=== PATIENT | female | born 1940 | race Caucasian/White ===

== ENCOUNTER 2021-06-05 15:11 | Emergency (ER) | payer MEDICARE, SELFPAY ==
[2021-06-05 15:19] VITALS: BP 205/100; PULSE 100; RESP 16; TEMP 36.6; O2SAT 97; BMI 15.5
--- NOTE | 2021-06-05 16:17 | ED.VIS.LOWEX ---
HPI History of Present Illness Chief Complaint: Lower Extremity Injury Narrative Narrative: 81-year-old female presenting after mechanical fall with left hip pain and extending into the left thigh. She states he is unable to ambulate after this. She states she thinks she tripped over her slipper. She denies head injury or LOC. Patient states she has a history of leg fracture on the left previously and did not have it surgically fixed. This was years ago. Patient states that she used to have an [place] gentleman make her a shoe that would make up for the leg length discrepancy so that she can walk. Patient states she was otherwise well prior to this. Denies urinary complaints. No fever or chills. No weakness. [facility] Medical History (Updated 06/05/21 @ 17:[address] Tena Chery DO) COPD (chronic obstructive pulmonary disease) Gluten intolerance Hypertension Smoker Stroke/cerebrovascular accident Home Medications hydrocodone-acetaminophen 1 tab PO Q6H PRN 06/05/21 [History Last Taken Unknown] levothyroxine 75 mcg PO DAILY 06/05/21 [History Last Taken Unknown] lisinopril 20 mg PO DAILY 06/05/21 [History Last Taken Unknown] lorazepam 2 mg PO TID PRN 06/05/21 [History Last Taken Unknown] metoprolol succinate 50 mg PO DAILY 06/05/21 [History Last Taken Unknown] montelukast [Singulair] 10 mg PO QPM 06/05/21 [History Last Taken Unknown] oxybutynin chloride 5 mg PO DAILY 06/05/21 [History Last Taken Unknown] Allergy/AdvReac Type Severity Reaction Status Date / Time meperidine [From Demerol] Allergy Rash Verified 06/05/21 15:27 Family History (Updated 06/05/21 @ 17:[address] Tena Chery DO) Other CVA (cerebral vascular accident) Hypertension Surgical History (Updated 06/05/21 @ 17:[address] Tena Chery DO) Hx of breast implants, bilateral Social History (Updated 06/05/21 @ 17:[address] Tena Chery DO) Smoking Status: Current some day smoker tobacco type: e-cigarettes how long ago did patient quit smoking: Started e-cigarette use approximately 1 week ago alcohol intake: former details: Patient drank 12 beers a day at her heaviest but quit drinking 1 yr ago substance use type: does not use ROS ROS ED Constitutional Constitutional ED: Denies chills or fever(s) Eyes Eyes: Denies blurry vision or diplopia ENT ENT ED: Denies rhinorrhea or sore throat Cardiovascular Cardiovascular: Denies chest pain or palpitations Respiratory/Chest Respiratory/Chest: Denies cough or dyspnea Gastrointestinal Gastrointestinal: Denies abdominal pain, nausea or vomiting Genitourinary Genitourinary ED: Denies dysuria or hematuria Musculoskeletal Musculoskeletal: Reports other Details: Left hip pain Integumentary Denies Abrasions or rash Neurologic Neurologic: Denies headache(s) or paresthesias EXAM Physical Exam Const Vital Signs: 06/05/21 15:19 06/05/21 18:57 06/05/21 19:16 Temperature 97.8 F Temperature Source Temporal Pulse Rate 100 78 Respiratory Rate 16 15 Blood Pressure 205/100 H 171/84 H Blood Pressure Mean 135 113 Pulse Ox 97 Oxygen Delivery Method Room Air 06/05/21 20:00 06/05/21 21:14 Temperature Temperature Source Pulse Rate 78 Respiratory Rate 16 Blood Pressure 149/104 H 155/78 H Blood Pressure Mean 119 103 Pulse Ox 98 Oxygen Delivery Method Positive cachectic General Appearance ED: cachectic and NAD Nutritional Appearance: cachectic HEENT normocephalic and atraumatic Chest Wall inspection of chest normal and palpation of chest normal Resp normal respiratory effort and clear to auscultation bilaterally Cardio regular rate and regular rhythm Back/Spine Thoracic Spine / Upper Back: Negative for thoracic spinal tenderness Lumbar Spine / Lower Back: Negative for lumbar spinal tenderness Extremity Extremity Narrative: Left leg is about 4 inches shorter than the right leg. There is pain to palpation at the left greater trochanter and left proximal thigh laterally. Neuro oriented x3 and CN's II-XII intact bilaterally Sensorium / Orientation: alert MDM MDM MDM Narrative Medical decision making narrative: 81-year-old female presenting with left hip pain. On my initial examination I noticed that she has a leg length discrepancy on the left which is about 4 inches shorter than the 1 on the right. Her daughter states this is not new and that she has been like this for years since her last fracture. She never had this repaired and reports specialist remains that she can ambulate well. She does not have this anymore. Patient reports that she tripped over her slipper on the way into the kitchen and did not hit her head or have LOC. CBC shows a slight leukocytosis at 11.9. Hemoglobin is 11.7 without any comparison labs. Platelet count normal at 329. Renal function electrolytes are normal. Urinalysis is negative for infection. Chest x-ray on my interpretation shows no acute cardiopulmonary process the radiologist does agree. On my interpretation of the left hip and femur x-rays there is an acute, impacted, angulated intertrochanteric left hip fracture. Patient given morphine for pain. Her blood pressure was noted to be elevated on arrival at 205/100 however her morphine her blood pressure is now 155/78. Patient requested to go to [facility]. I discussed this with the transfer line and ultimately was accepted by Dr. Castillo. She will be transported to the medical floor. Impression: 1. Mechanical fall 2. Intertrochanteric left hip fracture 3. Mechanical fall Lab Data Attestation: I reviewed the patient's lab results. Labs: Laboratory Results - last 24 hr 06/05/21 06/05/21 06/05/21 16:25 16:25 18:20 WBC 11.9 H RBC 3.78 L Hgb 11.7 L Hct 34.7 L MCV 91.8 MCH 31.0 MCHC 33.7 RDW Std Deviation 57.3 H RDW Coeff of María 17.0 H Plt Count 329 MPV 9.5 Immature Gran % (Auto) 0.800 Neut % (Auto) 84.0 H Lymph % (Auto) 7.8 L [place] % (Auto) 6.3 Eos % (Auto) 0.5 Baso % (Auto) 0.6 Absolute Neuts (auto) 10.0 H Absolute Lymphs (auto) 0.93 Nucleated RBC % 0 Sodium 131 L Potassium 3.7 Chloride 98 Carbon Dioxide 28.0 Anion Gap 5 BUN 20 H Creatinine 0.81 Estim Creat Clear Calc 34.89 Est GFR (MDRD) Af Amer 87 Est GFR (MDRD) Non-Af 72 BUN/Creatinine Ratio 24.7 H Glucose 95 Calcium 8.8 Urine Color Yellow Urine Clarity Clear Urine pH 7.0 Ur Specific [place] 1.010 Urine Protein Negative Urine Glucose (UA) Normal Urine Ketones Negative Urine Occult Blood Negative Urine Nitrite Negative Urine Bilirubin Negative Urine Urobilinogen Normal Ur Leukocyte Esterase Negative Urine RBC 0 SEEN Urine WBC 0 SEEN Ur Squamous Epith Cells 0-5 SEEN Urine Bacteria 0 SEEN Urine Mucus 0 SEEN Radiography Diagnostic Testing: Clinical Impression(s) from Imaging Studies Chest X-Ray 06/05/21 16:45 IMPRESSION: Hyperexpanded lungs with chronic interstitial changes, no superimposed acute pulmonary process Electronically Signed: Waldo Hernandez MD at 17:11 EST Reading Location ID and State: [facility] / [place] , Service support , Femur X-Ray 06/05/21 16:45 IMPRESSION: Acute, comminuted, multi fragmented, impacted angulated intertrochanteric fracture of the left femur with soft tissue swelling Left hip dislocation or subluxation No demonstrated distal femur or pelvic fracture Electronically Signed: Waldo Hernandez MD at 17:14 EST Reading Location ID and State: [facility] / [place] , Service support , Pelvis X-Ray 06/05/21 16:45 IMPRESSION: Acute, comminuted impacted angulated intertrochanteric fracture of the left femur with soft tissue swelling Osteopenia No demonstrated fracture 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 Electronically Signed: Waldo Hernandez MD at 17:12 EST Reading Location ID and State: [facility] / [place] , Service support , Discharge Plan Triage Chief Complaint: Lower Extremity Injury ED Provider: Dillon Diamond Dx/Rx/DC Orders Prescriptions: No Action hydrocodone-acetaminophen 5-325 mg Tablet 1 tab PO Q6H PRN (Reason: Back Pain) RF: 0 levothyroxine 75 mcg Tablet 75 mcg PO DAILY RF: 0 lorazepam 2 mg Tablet 2 mg PO TID PRN (Reason: Anxiety) RF: 0 metoprolol succinate 50 mg Tablet Extended Release 24 Hr 50 mg PO DAILY RF: 0 lisinopril 20 mg Tablet 20 mg PO DAILY RF: 0 montelukast [Singulair] 10 mg Tablet 10 mg PO QPM RF: 0 oxybutynin chloride 5 mg Tablet 5 mg PO DAILY RF: 0 Primary Care Provider: Duncan Boateng Referrals: Duncan Boateng MD [Primary Care Provider] - Disposition Discharge Date/Time: 06/05/21 21:21
[2021-06-05] MEDS: Morphine 4 MG/ML Syringe IV ×2 (16:24→17:38)
[2021-06-05] MEDS: Ondansetron 4 MG/2 ML Vial IV (16:24)
[2021-06-05 16:37] LABS: Absolute Lymphocyte Count 0.93 X10^3/uL (0.83-4.51); Basophil# 0.07 X10^3/uL; Basophil% 0.6 % (0-1); Eosinophil# 0.06 X10^3/uL; Eosinophils% 0.5 % (0-5); Hematocrit 34.7 % (37-47); Hemoglobin 11.7 g/dL (12.0-15.0); Lymphocyte # 0.93 X10^3/ul (0.83-4.51); Lymphocyte % 7.8 % (19-41); Mean Corp Hgb Conc 33.7 g/dL (32-36); Mean Corpuscular Volume 91.8 fL (81-99); Mean Platelet Vol. 9.5 fl (6.2-12.0); Monocyte# 0.75 X10^3/uL; Monocyte% 6.3 % (0-10); NRBC Flagged by Analyzer 0 % (0-5); Neutrophil # 10.03 X10^3/uL (2.7-7.7); Platelet Count 329 K/mm3 (150-450); RBC Distribution Width SD 57.3 fl (35.1-43.9); Red Blood Count 3.78 M/mm3 (4.2-5.4); White Blood Count 11.9 K/mm3 (4.4-11.0)
[2021-06-05 16:45] LABS: Anion Gap 5 (5-15); BUN 20 mg/dL (7-18); BUN/Creat Ratio 24.7 RATIO (10-20); Calcium,Total 8.8 mg/dL (8.5-10.1); Chloride 98 mmol/L (98-107); Creatinine, Serum 0.81 mg/dL (0.55-1.02); EST Glomerular Filtration Rate 72 mL/min (>60); Est Glom Filt Rate - Afr Amer 87 mL/min (>60); Estimated Creatinine Clearance 34.89 ml/min; Glucose 95 mg/dL (74-106); Potassium 3.7 mmol/L (3.5-5.1); Sodium Level 131 mmol/L (136-145)
--- NOTE | 2021-06-05 16:45 | RAD_ITS ---
STUDY: X-RAY CHEST REASON FOR EXAM: Female, 81 years old. Preop for hip surgery TECHNIQUE: Single AP portable view of the chest. COMPARISON: None. FINDINGS: Peripheral calcifications noted within bilateral breast implants. Lungs are hyperexpanded with chronic interstitial changes, no superimposed acute pulmonary process. There is no demonstrated pleural abnormality. Normal size heart. Normal mediastinum and william. Normal visualized pulmonary arteries. There is atherosclerotic calcification of the aortic arch with tortuosity. There are diffuse degenerative changes of the visualized thoracic spine. There is degenerative osteoarthritis of the bilateral shoulders. There is no demonstrated abnormality of the visualized soft tissue structures of the upper abdomen. RAD/Chest 1 View (Portable) IMPRESSION: Hyperexpanded lungs with chronic interstitial changes, no superimposed acute pulmonary process Electronically Signed: Waldo Hernandez MD at 17:11 EST ,
--- NOTE | 2021-06-05 16:45 | RAD_ITS ---
STUDY: X-RAY - PELVIS REASON FOR EXAM: Female, 81 years old. Acute pain after a fall TECHNIQUE: One view of the pelvis was obtained. COMPARISON: None. FINDINGS: There is a non-specific bowel gas pattern. Normal visualized soft tissue structures. There is diffuse demineralization of the osseous structures. There is narrowing with cortical sclerosis and osteophyte formation of the sacroiliac joint consistent with degenerative osteoarthritic changes. Normal visualized bilateral superior and inferior pubic rami. Normal pubic symphysis. Normal ischial tuberosities. Normal visualized right femoral head. Normal right acetabulum. There is mild articular joint space narrowing of the right hip. There is an acute, impacted, intertrochanteric fracture of the left femur with varus simulation. No left hip dislocation or subluxation is noted. No clearly demonstrated pelvic fracture. 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
--- NOTE | 2021-06-05 16:45 | RAD_ITS ---
STUDY: X-RAY - LEFT FEMUR REASON FOR STUDY: Female, 81 years old. Pain after fall TECHNIQUE: 4 view(s) of the femur. COMPARISON: None. FINDINGS: Bones are demineralized. There is an acute, impacted, multi fragmented, angulated intertrochanteric fracture of the left femur. There is nursing relation of the fracture site. There is arthritic narrowing of the left hip joint without dislocation or subluxation. No demonstrated acetabular or pelvic fracture. Age consistent SI joint arthrosis. No demonstrated fracture in the distal femur. Diffuse atherosclerotic calcifications are noted. RAD/Femur Min 2 Views IMPRESSION: Acute, comminuted, multi fragmented, impacted angulated intertrochanteric fracture of the left femur with soft tissue swelling Left hip dislocation or subluxation No demonstrated distal femur or pelvic fracture Electronically Signed: Waldo Hernandez MD at 17:14 EST ,
--- NOTE | 2021-06-05 16:55 | PCM.HP.STD ---
[facility] - [facility] General Date of Service: 06/05/21 Chief Complaint: Status post mechanical fall with left hip pain [facility] Abrahan COLE, is a 81 F who presented to the emergency department was [facility] on 06/05/2021 complaining of left hip pain after suffering a mechanical fall. The patient states she tripped over her slipper and landed on her left hip. She denied any other injuries or loss of consciousness. She reported that she was immediately in pain and I am unable to ambulate and she therefore called EMS. Upon EMS arrival she was in a seated position. The patient is unclear of all of her home medications however she does admit that she takes Plavix for remote strokes that she has had. We are trying to obtain a list of her current medications but this has not been completed yet. She denies any cardiac disease and has no current chest pain. She states she has a chronic left leg shortening for which she wore a shoe to compensate for leg length discrepancy. She has a remote history of tobacco and alcohol use but no significant current usage. She is living with her son and states that since her she is lost a considerable amount of weight however it appears that it stabilized at 80 pounds. Her only current complaint is left hip pain. In the emergency department her vital signs were normal other than markedly elevated blood pressure at 205/100 however she was having considerable pain. She does not take antihypertensives at baseline. A CBC was performed and showed a mild leukocytosis with a white count of 11.9, a hemoglobin of 11.7 and normal platelets. BMP was obtained and found a sodium of 131, mildly elevated BUN at 20 but a normal serum creatinine is 0.81 and no other abnormalities were identified. A chest x-ray was performed and shows hyperinflation with flattened diaphragms indicating probable COPD and bilateral breast implants which appear stable but no other abnormalities were identified. No EKG has been done at this time but will be ordered for preop clearance at admission. Films of her hip showed a comminuted acute multifragmented impacted angulated intertrochanteric fracture of the left femur with soft tissue swelling a left hip dislocation/subluxation with no pelvic or distal femoral fracture. In the emergency department she was given medication for pain and the case was discussed with Dr. Marin from orthopedic surgery. [facility] Medical History (Updated 06/05/21 @ 17:[address] Tena Chery DO) COPD (chronic obstructive pulmonary disease) Gluten intolerance Hypertension Smoker Stroke/cerebrovascular accident Home Medications hydrocodone-acetaminophen 1 tab PO Q6H PRN 06/05/21 [History Last Taken Unknown] levothyroxine 75 mcg PO DAILY 06/05/21 [History Last Taken Unknown] lorazepam 2 mg PO TID PRN 06/05/21 [History Last Taken Unknown] Allergy/AdvReac Type Severity Reaction Status Date / Time meperidine [From Demerol] Allergy Rash Verified 06/05/21 15:27 Family History (Updated 06/05/21 @ 17:[address] Tena Chery DO) Other CVA (cerebral vascular accident) Hypertension Surgical History (Updated 06/05/21 @ 17:[address] Tena Chery DO) Hx of breast implants, bilateral Social History (Updated 06/05/21 @ 17:[address] Tena Chery DO) Smoking Status: Current some day smoker tobacco type: e-cigarettes how long ago did patient quit smoking: Started e-cigarette use approximately 1 week ago alcohol intake: former details: Patient drank 12 beers a day at her heaviest but quit drinking 1 yr ago substance use type: does not use ROS Constitutional Constitutional: Reports change in weight; Denies anorexia, chills, fatigue, fever(s), malaise, night sweats, weakness or other Eyes Eyes: Denies blurry vision, change in eye color, change in vision, discharge from eye(s), double vision, erythema, eye pain, loss of vision or other ENT HEENT: Denies abnormal hearing, dysphagia, ear pain, epistaxis, headache(s), hearing loss, nasal congestion, nasal discharge, post nasal drip, sinus pressure, sore throat or other Cardiovascular Cardiovascular: Denies chest pain, claudication, dyspnea on exertion, edema, lightheadedness, orthopnea, palpitations, paroxysmal nocturnal dyspnea, rapid heart rate, syncope or other Respiratory/Chest Respiratory/Chest: Denies cough, dyspnea, excessive phlegm production, hemoptysis, productive cough, shortness of breath at rest, shortness of breath with exertion, wheezing or other Gastrointestinal Gastrointestinal: Denies abdominal pain, coffee ground emesis, constipation, diarrhea, dyspepsia, hematemesis, hematochezia, loose stools, melena, nausea, vomiting or other Genitourinary Genitourinary: Denies burning urination, difficulty urinating, dysuria, hematuria, nocturia, urinary frequency, urinary hesitancy, urinary incontinence, urinary urgency or other Musculoskeletal Musculoskeletal: Reports joint pain and joint swelling; Denies arthralgias, back pain, joint stiffness, myalgias, neck pain or other Neurologic Neurologic: Denies abnormal gait, abnormal speech, confusion, disequilibrium, dizziness, focal weakness, headache(s), numbness, paresthesias, seizure-like activity, seizures, syncope, tingling, tremor(s) or other Psychiatric Psychiatric: Denies anxiety, depression, homicidal ideation, suicidal ideation or other Endocrine Endocrinology: Denies change in body appearance, cold intolerance, excessive sweating, heat intolerance, polydipsia, polyuria or other Hematologic/Lymphatic Hematologic/Lymphatic: Denies anemia, easy bleeding, easy bruising, lymphadenopathy or other Allergic/Immunologic Allergic/Immunologic: Denies rhinitis, hives, eczemia, asthma or other Vital Signs Vital Signs Vital Signs: 06/05/21 15:19 Temperature 97.8 F Temperature Source Temporal Pulse Rate 100 Respiratory Rate 16 Blood Pressure 205/100 H Blood Pressure Mean 135 Pulse Ox 97 Oxygen Delivery Method Room Air Weight Weight: 39.9 kg Body Mass Index (BMI) 15.5 Physical Exam Const alert, oriented x3 and no apparent distress Constitutional Narrative: Elderly cachectic white female sitting up in bed, daughter at bedside, appears comfortable at this time, nontoxic, very interactive however appears to be somewhat forgetful at times General Appearance: cooperative HEENT normocephalic, head/scalp atraumatic and moist oral mucous membranes; Negative for hearing grossly normal bilaterally HEENT Narrative: Temporal wasting, upper dentures in place, multiple teeth missing from lower palate, Mallampati 1, no thrush, mildly [place] Eyes PERRL, EOMs intact bilaterally and conjunctivae normal Eyes Narrative: No scleral icterus Neck no lymphadenopathy, supple, no JVD and no carotid bruits Neck Narrative: Trachea midline without thyroid enlargement Resp normal respiratory effort, no retractions, no use of accessory muscles and clear to auscultation bilaterally Resp Narrative: Diffusely diminished without adventitious sounds Auscultation: Negative for crackles, rales, rhonchi or wheezes Cardio regular rate, regular rhythm, S1 normal heart sound, S2 normal heart sound, no murmurs, no rub, no gallops, no clicks and no JVD GI normal to inspection, nondistended, normoactive bowel sounds, soft to palpation, non-tender and non-distended; Negative for hepatosplenomegaly GI Narrative: Very flat stomach Extremity Extremity Narrative: Markedly decreased lean muscle mass, left lower extremity is shortened and externally rotated Peripheral Pulses: Yes pulses 2+ throughout Skin no rashes or lesions noted, no wounds, skin turgor normal, no jaundice, no petechiae and no mottling Neuro oriented x3, CN's II-XII intact bilaterally and no focal motor deficits Neuro Narrative: Daily anxious and forgetful at time Sensorium / Orientation: awake and alert Speech: speech normal Psych affect normal Psych Narrative: Very pleasant and talkative Mood & Affect: anxious Results Lab / Micro Data Attestation: I reviewed the patient's lab results. Result Diagrams: 06/05/21 16:25 06/05/21 16:25 Labs: Laboratory Results - last 24 hr 06/05/21 16:25: WBC 11.9 H, RBC 3.78 L, Hgb 11.7 L, Hct 34.7 L, MCV 91.8, MCH 31.0, MCHC 33.7, RDW Std Deviation 57.3 H, RDW Coeff of María 17.0 H, Plt Count 329, MPV 9.5, Immature Gran % (Auto) 0.800, Neut % (Auto) 84.0 H, Lymph % (Auto) 7.8 L, [place] % (Auto) 6.3, Eos % (Auto) 0.5, Baso % (Auto) 0.6, Absolute Neuts (auto) 10.0 H, Absolute Lymphs (auto) 0.93, Nucleated RBC % 0 06/05/21 16:25: Sodium 131 L, Potassium 3.7, Chloride 98, Carbon Dioxide 28.0, Anion Gap 5, BUN 20 H, Creatinine 0.81, Estim Creat Clear Calc 34.89, Est GFR (MDRD) Af Amer 87, Est GFR (MDRD) Non-Af 72, BUN/Creatinine Ratio 24.7 H, Glucose 95, Calcium 8.8 Assessment & Plan Assessment/Plan (1) Fracture, intertrochanteric, left femur: (2) Hip dislocation, left: (3) Severe malnutrition: (4) Leukocytosis: (5) Normocytic anemia: (6) Hyponatremia: PLAN: Left intertrochanteric fracture/dislocation -Awaiting input from orthopedic surgery-Dr. Turner -Patient is on Plavix and last dose was yesterday -If Ortho intends on doing surgery tomorrow will make patient n.p.o. after midnight -Pain medication for pain control -Bowel regimen -PT/OT consultation for after surgery -We will leave DVT prophylaxis to orthopedics -EKG ordered for preop clearance -Discussed with patient and daughter that she was high risk for requiring fdc/rehab placement at discharge and they are accepting of this probable need Leukocytosis -Suspect reactive -We will continue to monitor -CBC in a.m. Normocytic anemia -Baseline unknown -Suspect this is chronic however -Repeat CBC in a.m. Hyponatremia -Sodium is 131 -Home medication is unclear at this time -We will review medications when we clarify -Repeat BMP tomorrow -Unclear if this is chronic or acute -No signs or symptoms of acute hyponatremia however Severe malnutrition -BMI is 15.6 -Patient states p.o. intake has decreased since her -She has had weight loss in the last year of approximately 35 pounds -Supplements ordered -Dietitian consulted History of stroke -We will hold aspirin and Plavix depending on orthopedic surgery input -Continue to modify risk factors Hypertension -Continue home medication once clarified -As needed hydralazine for systolic pressure greater than 160 Hypothyroidism -Check TSH especially with weight loss -Continue home levothyroxine COPD -As needed aerosols -Patient is currently on room air with stable saturations DVT prophylaxis -SCDs for now -We will leave to orthopedic surgery after surgery has been completed CODE STATUS -DNR CCA no intubation or CPR is clarified with the patient on admission, daughter at bedside for discussion Charges/Coding Visit Charges Inpatient E&M: 77252 Init Hosp L3
[2021-06-05 18:20] LABS: Bacteria 0 SEEN /hpf (None Seen); Mucous, Urine 0 SEEN /hpf (<or=2+); Red Blood Cells-Urine 0 SEEN /hpf (0-5); White Blood Cells 0 SEEN /hpf (0-5)
[2021-06-05 18:32] LABS: Color, Urine Yellow (Yellow); Glucose, Dipstick Normal (Normal); Ketone-Dipstick Negative (Negative); Leukocyte Esterase-Dipstick Negative /ul (Negative); Nitrite-Dipstick Negative (Negative); Occult Blood-Urine Negative /ul (Negative); Protein-Dipstick Negative (Negative); Urine Bilirubin Dipstick Negative (Negative); Urine Clarity Clear (Clear); Urine Urobilinogen Normal (Normal)
[2021-06-05 18:48] LABS: Squamous Epithelial Cells - UA 0-5 SEEN /hpf (5-10)
[2021-06-05 18:57] VITALS: BP 171/84
[2021-06-05 19:16] VITALS: PULSE 78; RESP 15
--- NOTE | 2021-06-05 19:17 | ED.RN ---
Discussed options for urinary management with patient and daughter. After weighing risks and benefits with them, they took note of recent UTI and chose to try purewick. They are agreeable to a glynn catheter for management, if the purewick does not work for her.
[2021-06-05 20:00] VITALS: BP 149/104; PULSE 78; RESP 16; O2SAT 98
[2021-06-05 21:14] VITALS: BP 155/78
== END 2021-06-05 21:21 | disposition home or self-care (01) ==
PROVIDERS: Emergency Provider Student in an Organized Health Care Education/Training Program; PCP Family Medicine; Visit Provider Student in an Organized Health Care Education/Training Program
DX: S72.142A Displaced intertrochanteric fracture of left femur, initial encounter for closed fracture (principal); I10 Essential (primary) hypertension; F17.290 Nicotine dependence, other tobacco product, uncomplicated; W19.XXXA Unspecified fall, initial encounter; Z98.82 Breast implant status; Z79.899 Other long term (current) drug therapy
CPT/HCPCS: 51702; 71045; 72170; 73552; 80048; 81001; 85025; 96374; 96375; 96376; 99285; J2405

== ENCOUNTER → 2021-08-12 | Outpatient (CLI) | payer MEDICARE, SELFPAY ==
[2021-08-12 18:04] LABS: Color, Urine Yellow (Yellow); Glucose, Dipstick Normal (Normal); Ketone-Dipstick Negative (Negative); Leukocyte Esterase-Dipstick 500 /ul (Negative); Nitrite-Dipstick Negative (Negative); Occult Blood-Urine 25 /ul (Negative); Protein-Dipstick 15 mg/dl (Negative); Urine Bilirubin Dipstick Negative (Negative); Urine Clarity Cloudy (Clear); Urine Urobilinogen Normal (Normal)
== END | disposition home or self-care (01) ==
LOC: LABSPEC 08-13 06:00
PROVIDERS: PCP Family Medicine; Referring Provider Family Medicine; Visit Provider Family Medicine
DX: R41.0 Disorientation, unspecified (principal); R30.0 Dysuria
CPT/HCPCS: 81002; 87077; 87086; 87088; 87186

== ENCOUNTER 2021-09-07 13:17 | Inpatient (IN) | payer MEDICARE, SELFPAY ==
[2021-09-07] VITALS (18 sets, daily range): BP systolic 127–201; BP diastolic 50–110; PULSE 43–65; RESP 12–20; TEMP 36.3–36.6; O2SAT 91–100; BMI 15.1; BMI 16.7
--- NOTE | 2021-09-07 13:20 | NURSING ---
NO OLD EKGS
--- NOTE | 2021-09-07 13:33 | EKG12_ITS ---
Test Reason : Blood Pressure : / mmHG Vent. Rate : 052 BPM Atrial Rate : 052 BPM P-R Int : 180 ms QRS Dur : 090 ms QT Int : 480 ms P-R-T Axes : 087 099 078 degrees QTc Int : 446 ms Sinus bradycardia with marked sinus arrhythmia Septal infarct , age undetermined Abnormal ECG Confirmed by ANTONIETTA HERNANDEZ, MARTÍNEZ ([id number]), editor book AUGUSTINE POWELL ([id number]) on 09/09/2021 10:33:07 AM Referred By: Confirmed By:MARTÍNEZ MANE MD
[2021-09-07] MEDS: 0.9% Normal Saline 1,000 ML 150 ML IV (13:44)
[2021-09-07 13:51] LABS: Bedside Glucose 45 mg/dL (74-106)
[2021-09-07 13:52] LABS: Absolute Lymphocyte Count 1.48 X10^3/uL (0.83-4.51); Absolute Neutrophil Count 3.2 X10^3/uL (2.0-7.7); Basophil# 0.09 X10^3/uL; Basophil% 1.6 % (0-1); Eosinophil# 0.19 X10^3/uL; Eosinophils% 3.5 % (0-5); Hematocrit 38.8 % (37-47); Lymphocyte # 1.48 X10^3/ul (0.83-4.51); Lymphocyte % 27.1 % (19-41); Mean Corp Hgb Conc 30.9 g/dL (32-36); Mean Corpuscular Volume 90.7 fL (81-99); Mean Platelet Vol. 9.1 fl (6.2-12.0); Monocyte# 0.52 X10^3/uL; Monocyte% 9.5 % (0-10); NRBC Flagged by Analyzer 0 % (0-5); Neutrophil # 3.16 X10^3/uL (2.7-7.7); Neutrophil % 57.8 % (47-70); Platelet Count 424 K/mm3 (150-450); RBC Distribution Width SD 53.7 fl (35.1-43.9); Red Blood Count 4.28 M/mm3 (4.2-5.4); White Blood Count 5.5 K/mm3 (4.4-11.0)
[2021-09-07 13:55] LABS: Blood Gas Specimen Type VEN; VBG BASE EXCESS 3 mmol/L (-1.0-3.5); VBG Bicarbonate 28 mmol/L (22-26); VBG PO2 16 mmHg (25-40); VBG SO2 19 % (50-70); VBG TCO2 30 mmol/L (23-33); VBG pCO2 53.4 mmHg (41-51); VBG pH 7.33 (7.32-7.42)
[2021-09-07 14:02] LABS: Prothrombin Time (Protime)PT. 13.1 SECONDS (11.7-14.9)
[2021-09-07 14:03] LABS: Partial Thromboplast Time 27.2 Seconds (24.1-36.2)
--- NOTE | 2021-09-07 14:07 | EX.ED.DYSGE1 ---
HPI History of Present Illness Chief Complaint: Mental Status Change Detail of Chief Complaint: Bradycardia possible unintentional overmedication with metoprolol Informant: patient, EMS and other Onset/Context/Timing Onset: - (Unknown) Context: - (Unknown) Timing: - (Unknown) Quality: Patient not a good informant please read HPI narrative Location: Presents from home by ambulance Current Severity: Unable to determine Maximum Severity: Unable to determine Worsened by: Nothing Relieved by: Nothing Associated Symptoms Associated Symptoms: Nothing Narrative Narrative: Patient is an 81-year-old woman who presents from home. [facility] She may have unintentionally taken metoprolol to alleviate her left hip pain due to remote fracture that was not repaired. She denies any pain, paresthesia or paralysis of her toes. She denies history of Raynaud's disease. She is not a good informant. The nurse and had contacted [facility]. Apparently she took an unknown quantity of metoprolol, lisinopril and Plavix because she was anxious and thought her blood pressure was high. She has not taken any pain medicine or Ativan since June. 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 According to the POA the [place] for metoprolol, lisinopril and Plavix are all empty and she may have taken half of the prescription quantity on Tuesday. Prior similar symptoms: No Recent Illness/Hospitalization: No (Due to hip fracture with recurrent dislocation) [facility] Medical History COPD (chronic obstructive pulmonary disease) Gluten intolerance Hypertension Smoker Stroke/cerebrovascular accident Home Medications levothyroxine 75 mcg PO DAILY 06/05/21 [History Last Taken 09/06/21] lisinopril 20 mg PO DAILY 06/05/21 [History Last Taken 1 Week Ago ~08/31/21] metoprolol succinate 50 mg PO DAILY 06/05/21 [History Last Taken 1 Week Ago ~08/31/21] montelukast [Singulair] 10 mg PO QPM 06/05/21 [History Last Taken 09/06/21] clopidogrel 75 mg PO DAILY 09/07/21 [History Last Taken 1 Week Ago ~08/31/21] ferrous sulfate [FeroSul] 325 mg PO DAILY 09/07/21 [History Last Taken 09/06/21] Allergy/AdvReac Type Severity Reaction Status Date / Time meperidine [From Demerol] Allergy Rash Verified 09/07/21 13:19 Family History Other CVA (cerebral vascular accident) Hypertension Surgical History Hx of breast implants, bilateral Social History (Updated 09/07/21 @ 14:[address] Lucas Meza MD) household members: other details: Son's girlfriend Smoking Status: Current some day smoker tobacco type: cigarettes how long ago did patient quit smoking: Started e-cigarette use approximately 1 week ago alcohol intake: former details: Patient drank 12 beers a day at her heaviest but quit drinking 1 yr ago substance use type: does not use ROS ROS ED Review of Systems ROS Unobtainable: due to mental status and other Details: Patient is fixated on the pain and her hip being out. History is very limited. She denies chest pain. She denies shortness of breath. She denies abdominal pain. She complains of left hip pain. She states the last time the hip came out they left it out. EXAM Physical Exam Const Vital Signs: 09/07/21 13:19 09/07/21 14:53 Temperature 97.8 F Temperature Source Oral Pulse Rate 44 L 54 L Respiratory Rate 12 14 Blood Pressure 201/97 H 166/94 H Blood Pressure Mean 131 118 Pulse Ox 99 98 Oxygen Delivery Method Room Air Room Air Positive well developed, cachectic and unkempt General Appearance ED: unkempt, well developed, cachectic and cyanotic; Negative for diaphoretic or pallor Nutritional Appearance: cachectic HEENT Reports TM's clear and dry mucous membranes Negative for trauma or tenderness Tympanic Membrane ED: Yes TM's clear Mouth ED: Yes dry mucous membranes Mouth: dry mucous membranes Eyes PERRL and EOMs intact bilaterally General Eye ED: Negative for pale conjunctiva or scleral icterus Neck no lymphadenopathy, supple and no JVD Chest Wall palpation of chest normal Resp normal respiratory effort and clear to auscultation bilaterally Cardio regular rhythm, S1 normal heart sound and S2 normal heart sound Rate: bradycardia GI normal to inspection, nondistended, normoactive bowel sounds and non-tender Palpation: soft Back/Spine no CVA tenderness Thoracic Spine / Upper Back: Negative for thoracic spinal tenderness or paraspinal muscle tenderness Extremity Negative for normal to inspection Extremity Narrative: Patient has discoloration of her feet and toes. Concerned she may have Raynaud's phenomenon. There is biphasic DP flow bilaterally. There is monophasic PT flow on the right. No PT flow noted on the left. General Extremety ED: Negative for edema or tenderness General Extremity: Negative for edema Neuro oriented x3 and CN's II-XII intact bilaterally Sensorium / Orientation: alert Psych Psych Narrative: Difficult to assess Appearance: unkempt Skin No no wounds and No skin turgor normal General Skin Exam: Negative for elasticity normal, jaundice or pallor MDM MDM MDM Narrative Medical decision making narrative: Patient presents with altered mental status this may be due to poor perfusion. Since she is on levothyroxine and they are concerned she may not be compliant with her meds will obtain a TSH. We will attain a blood sugar since she has not been eating well and appears cachectic. Her blood sugar is low at 45. Lab Data Attestation: I reviewed the patient's lab results. Lab results narrative: CBC, H&H and differential unremarkable. Coags are unremarkable. Blood sugar is low at 45. Patient requested yogurt. Comprehensive metabolic panel is unremarkable. Lactate unremarkable. TSH is elevated at 9.35. Labs: Laboratory Results - last 24 hr 09/07/21 09/07/21 09/07/21 13:37 13:45 13:45 WBC 5.5 RBC 4.28 Hgb 12.0 Hct 38.8 MCV 90.7 MCH 28.0 MCHC 30.9 L RDW Std Deviation 53.7 H RDW Coeff of María 16.0 H Plt Count 424 MPV 9.1 Immature Gran % (Auto) 0.500 Neut % (Auto) 57.8 Lymph % (Auto) 27.1 Conway % (Auto) 9.5 Eos % (Auto) 3.5 Baso % (Auto) 1.6 H Absolute Neuts (auto) 3.2 Absolute Lymphs (auto) 1.48 Nucleated RBC % 0 PT 13.1 INR 1.0 APTT 27.2 Sodium Potassium Chloride Carbon Dioxide Anion Gap BUN Creatinine Estim Creat Clear Calc Est GFR (MDRD) Af Amer Est GFR (MDRD) Non-Af BUN/Creatinine Ratio Glucose Lactic Acid Calcium Total Bilirubin AST ALT Alkaline Phosphatase Total Protein Albumin Globulin Albumin/Globulin Ratio TSH Urine Color Urine Clarity Urine pH Ur Specific Niotaze Urine Protein Urine Glucose (UA) Urine Ketones Urine Occult Blood Urine Nitrite Urine Bilirubin Urine Urobilinogen Ur Leukocyte Esterase Urine RBC Urine WBC Ur Squamous Epith Cells Urine Bacteria Urine Mucus POC Glucose 45 L 09/07/21 09/07/21 09/07/21 13:45 13:45 14:50 WBC RBC Hgb Hct MCV MCH MCHC RDW Std Deviation RDW Coeff of María Plt Count MPV Immature Gran % (Auto) Neut % (Auto) Lymph % (Auto) Conway % (Auto) Eos % (Auto) Baso % (Auto) Absolute Neuts (auto) Absolute Lymphs (auto) Nucleated RBC % PT INR APTT Sodium 137 Potassium 4.0 Chloride 101 Carbon Dioxide 29.0 Anion Gap 7 BUN 25 H Creatinine 0.88 Estim Creat Clear Calc 30.27 Est GFR (MDRD) Af Amer 79 Est GFR (MDRD) Non-Af 66 BUN/Creatinine Ratio 28.3 H Glucose 95 Lactic Acid 0.8 Calcium 8.8 Total Bilirubin 0.40 AST 24 ALT 18 Alkaline Phosphatase 164 H Total Protein 6.6 Albumin 3.1 L Globulin 3.5 Albumin/Globulin Ratio 0.9 TSH 9.23 H Urine Color Straw Urine Clarity Clear Urine pH 6.0 Ur Specific Niotaze 1.010 Urine Protein Negative Urine Glucose (UA) Normal Urine Ketones Negative Urine Occult Blood Negative Urine Nitrite Negative Urine Bilirubin Negative Urine Urobilinogen Normal Ur Leukocyte Esterase Negative Urine RBC 0 SEEN Urine WBC 0 SEEN Ur Squamous Epith Cells 0 SEEN Urine Bacteria 0 SEEN Urine Mucus 0 SEEN POC Glucose ABG Data ABG results: ABG 09/07/21 13:51 Specimen Type OSMANY VBG pH 7.33 VBG pO2 16 L* VBG HCO3 28 H VBG Total CO2 30 VBG O2 Sat (Calc) 19 L VBG Base Excess 3 POC Mix VBG pCO2 Pt Tmp 53.4 H Crit Call To/Read Back Yes Blood Gas Notified Whom meza Blood Gas Notified Time 13:53:16 Radiography Chest X-Ray - ED: Read by ED Physician (Three-view x-ray independently interpreted and reviewed by me at 1528 reveals a superiorly dislocated left acetabular cup and patient is status post left total hip arthroplasty. There is evidence of fracture involving the left acetabulum.) EKG Initial EKG: Attestation: I personally reviewed and interpreted this EKG as follows: Interpretation: Sinus Bradycardia (Ventricular rate is 52. There is decreased anterior force. MN interval is 180 ms. Cures duration 90 ms per QT duration 180 ms. [place] is normal.) Critical Care Time Critical Care Time: Yes Critical care time (excluding procedures): 30-74 minutes (33 minutes), Including time spent: (History, physical, documentation, discussion with case management and health care nurse, interpretation laboratory results, interpretation x-rays, treatment for beta-inessa toxicity), Discussing w/Patient &/or Family/Fixture Designer, Discussing w/Consultants and Arranging Admission or Transfer Discharge Plan Triage Chief Complaint: Mental Status Change ED Provider: Lucas Meza Dx/Rx/DC Orders Clinical Impression: Beta inessa toxicity, Severe malnutrition, Normocytic anemia, Bradycardia, sinus, Accelerated hypertension, Failure of left total hip arthroplasty with dislocation of hip, Peripheral artery disease Prescriptions: No Action levothyroxine 75 mcg Tablet 75 mcg PO DAILY RF: 0 metoprolol succinate 50 mg Tablet Extended Release 24 Hr 50 mg PO DAILY RF: 0 lisinopril 20 mg Tablet 20 mg PO DAILY RF: 0 montelukast [Singulair] 10 mg Tablet 10 mg PO QPM RF: 0 clopidogrel 75 mg Tablet 75 mg PO DAILY RF: 0 ferrous sulfate [FeroSul] 325 mg (65 mg iron) Tablet 325 mg PO DAILY RF: 0 Primary Care Provider: Duncan Boateng Referrals: Duncan Boateng MD [Primary Care Provider] - Disposition Disposition: Acute Care Hospital [facility]
--- NOTE | 2021-09-07 14:12 | ED.RN ---
spoke with caregiver Hiwot, about pt's situation. Hiwot states pt took possibly half bottle of metoprolol, lisinopril, and plavix. pt was not taking these meds as an attempt to end her life but was trying to alleviate pain. She had missed her pain management appt and did not get her norco and ativan (misssed appt d/t being in hospital for left hip). Hiwot's number is [phone] and is available for questions. Jamari is son, POA.
[2021-09-07 14:18] LABS: ALB/GLOB Ratio 0.9 RATIO (0.9-2.4); AST(SGOT) 24 U/L (15-37); Alanine Aminotransfer ALT/SGPT 18 U/L (13-56); Albumin, Serum 3.1 g/dL (3.2-5.0); Alkaline Phosphatase 164 U/L (45-117); Anion Gap 7 (5-15); BUN 25 mg/dL (7-18); BUN/Creat Ratio 28.3 RATIO (10-20); Calcium,Total 8.8 mg/dL (8.5-10.1); Chloride 101 mmol/L (98-107); Creatinine, Serum 0.88 mg/dL (0.55-1.02); EST Glomerular Filtration Rate 66 mL/min (>60); Est Glom Filt Rate - Afr Amer 79 mL/min (>60); Estimated Creatinine Clearance 30.27 ml/min; Globulin 3.5 g/dL (2.2-4.2); Glucose 95 mg/dL (74-106); Protein, Total 6.6 g/dL (6.4-8.2); Sodium Level 137 mmol/L (136-145); Thyroid Stim Hormone (TSH) 9.23 uIU/mL (0.358-3.74)
[2021-09-07 14:26] LABS: Lactic Acid 0.8 mmol/L (0.4-1.9)
--- NOTE | 2021-09-07 14:29 | CM.ED ---
MARIA INES Note RN Shelby stated that patient's feet were filthy upon arrival. Shelby asled squad if they were going to call [facility] and they said it's not a hoarding situation.. just filthy. MARIA INES received voice mail from Devon at [facility] requesting call back. MARIA INES received call from Devon at [facility] ([phone]). Devon said that she has not met patient. Devon said that she is scheduled to meet with patient and [facility] on . Devon said that there has been issues with getting into the house due to family members having active warrants. Devon said that there is concern that patient does not have enough support at home. Per [facility] patient is not able to care for herself. [facility] also stated that patient overtook medication. Devon requested an update regarding patient. MD and RN updated MARIA INES called Devon and left voice mail advising patient will be admitted and that staff noted that patient was filthy at admission with chunks of material on the bottom of her feet. Princess SABA
--- NOTE | 2021-09-07 14:51 | HP.PCM.HOS_ITS ---
HPI - General General Date of Admission: 09/07/21 Date of Service: 09/07/21 Chief Complaint: Hallucinations, suspected BB, ativan OD accidental. HPI Narrative The patient is an 81 y/o F w/ PMHx: Former EtOH Abuse, HTN, Gluten intolerance, COPD, Former tobacco use, Hx CVA, Chronic L hip pain w/ dislocation following w/ pain management (Dr. Boateng) who presents to the [facility] ED on 09/07/21 with history of living with individuals who have deferred any in home care or evaluations potentially secondary to pending warrants with attempts by [facility] RN to enter the home to check up on the patient as she has chronic significant pain with chronic left hip dislocation issues not considered a surgical candidate in chronic pain management and noted to have missed her last several pain management visits with no potential refills on her pain medications or Ativan for nearly the last month prompting call to police unfortunately finding the patient very disheveled with poor home environment with family admitting that she has been confused and hallucinating for the last several days and that the believe over the last 24 to 48 hours she took unknown quantity of potentially at least half her doses of metoprolol, lisinopril and potentially Plavix because she was anxious and felt her blood pressure was may be elevated and she was in pain believing this could help. There was initially some comments the potentially this was secondary to suicide attempt hours this was ruled out. Work-up in the ED included T97.8, heart rate 44, BP two /97, respiratory rate 12, 99% on room air, CBC with WC 5.5, hemoglobin 12, platelet 424 without marked shift, unremarkable coags, VBG with PO2 16, bicarb 28, total CO2 30, pH 7.33, CMP with BUN/creatinine 25/0.88, lactic acid 0.8, alk phos 164 otherwise not marked appearing, TSH 9.23, EKG with bradycardia with sinus arrhythmia with nonspecific changes with no acute evidence of ischemia. 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 In the ED following discussion with ED physician patient initiated on D5 NS, calcium gluconate and glucagon also administered. Upon patient evaluation immediately discussed case with Dr. Iyer and reviewed plan of care. [facility] Medical History (Updated 09/07/21 @ 15:[address] Lucas Meza MD) COPD (chronic obstructive pulmonary disease) Gluten intolerance Hypertension Smoker Stroke/cerebrovascular accident Home Medications levothyroxine 75 mcg PO DAILY 06/05/21 [History Last Taken 09/06/21] lisinopril 20 mg PO DAILY 06/05/21 [History Last Taken 1 Week Ago ~08/31/21] metoprolol succinate 50 mg PO DAILY 06/05/21 [History Last Taken 1 Week Ago ~08/31/21] montelukast [Singulair] 10 mg PO QPM 06/05/21 [History Last Taken 09/06/21] clopidogrel 75 mg PO DAILY 09/07/21 [History Last Taken 1 Week Ago ~08/31/21] ferrous sulfate [FeroSul] 325 mg PO DAILY 09/07/21 [History Last Taken 09/06/21] Allergy/AdvReac Type Severity Reaction Status Date / Time meperidine [From Demerol] Allergy Rash Verified 09/07/21 13:19 Family History (Updated 09/07/21 @ 17:[address] Carlie Granados MD) Mother Hypertension Heart disease Father Hypertension Cancer Hx prostate CA. Other CVA (cerebral vascular accident) Surgical History (Updated 09/07/21 @ 17:[address] Carlie Granados MD) History of total left hip replacement Hx of breast implants, bilateral Social History (Updated 09/07/21 @ 17:[address] Carlie Granados MD) household members: other details: Son's girlfriend Smoking Status: Former smoker how long ago did patient quit smoking: Reports recently quit cigarette tobacco, prior heavy since youth. 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 substance use type: does not use ROS ROS Narrative Admission Review of Systems: CONSTITUTIONAL: No weight loss, fever, chills, + weakness or fatigue. HEENT: Eyes: No visual loss, blurred vision, double vision or yellow sclerae. Ears, Nose, Throat: No hearing loss, sneezing, congestion, runny nose or sore throat. SKIN: + PVD, abrasions. CARDIOVASCULAR: No chest pain, chest pressure or chest discomfort, palpitations, edema, orthopnea, syncopal events. RESPIRATORY: No shortness of breath, cough or sputum, wheezing, hemoptysis. GASTROINTESTINAL: + anorexia, No nausea, vomiting or diarrhea, abdominal pain, melena, BRBPR. GENITOURINARY: No dysuria, frequency, urgency or retention. NEUROLOGICAL: + Possible transient hallucinations, No headache, dizziness, syncope, paralysis, ataxia, numbness or tingling in the extremities, focal weakness, change in bowel or bladder control, seizure. MUSCULOSKELETAL: + muscle, back pain, joint pain or stiffness. HEMATOLOGIC: + anemia, bleeding or bruising. LYMPHATICS: No enlarged nodes. No history of splenectomy. PSYCHIATRIC: + history of depression or anxiety. ENDOCRINOLOGIC: No reports of sweating, cold or heat intolerance. No polyuria or polydipsia. ALLERGIES: No rhinitis. Vital Signs Vital Signs Vital Signs: 09/07/21 13:19 Temperature 97.8 F Temperature Source Oral Pulse Rate 44 L Respiratory Rate 12 Blood Pressure 201/97 H Blood Pressure Mean 131 Pulse Ox 99 Oxygen Delivery Method Room Air Weight Weight: 82 lb 14.301 oz Body Mass Index (BMI) 15.1 Physical Exam Narrative Physical Examination: General: Awake, alert, oriented to self, place, recent events, month, year, president, remains cooperative, laying in the ED bed, fatigued appearing Skin: Normal color, normal turgor, no icterus, no cyanosis except very staged abrasions and notable bilateral lower extremity chronic venous stasis skin changes HEENT: AT/NC, EOMI, PERRLA, mildly dry MM, no carotid bruits or JVD noted. Lungs: Diminished, greater bases, appropriate effort, no rales, ronchi or wheezing, evident bilateral breast implants. Heart: Bradycardic; no gallop, rub audible. Abdomen: Soft, thin cachectic habitus, NTTP, ND, mildly hyperactive BS, no HSM. Extremities: No cyanosis, no clubbing, pedal to mid thakkar 1-2+ pitting edema, shortened and rotated left lower extremity, dislocated hip. Neurological: Patient awake, alert, oriented as noted, cognitive function currently improved, appear intact; pupils equally reactive to light and accommodation, cranial nerves II-XII grossly normal, moving all 4 extremities except extremely limited given left hip dislocation, strength accordingly severely global decreased. Psychiatric: Affect appears fatigued otherwise normal, no acute evidence of depressive or anxiety feelings. Results Lab / Micro Data Result Diagrams: 09/07/21 13:45 09/07/21 13:45 Labs: Laboratory Results - last 24 hr 09/07/21 13:37: POC Glucose 45 L 09/07/21 13:45: WBC 5.5, RBC 4.28, Hgb 12.0, Hct 38.8, MCV 90.7, MCH 28.0, MCHC 30.9 L, RDW Std Deviation 53.7 H, RDW Coeff of María 16.0 H, Plt Count 424, MPV 9.1, Immature Gran % (Auto) 0.500, Neut % (Auto) 57.8, Lymph % (Auto) 27.1, Nance % (Auto) 9.5, Eos % (Auto) 3.5, Baso % (Auto) 1.6 H, Absolute Neuts (auto) 3.2, Absolute Lymphs (auto) 1.48, Nucleated RBC % 0 09/07/21 13:45: PT 13.1, INR 1.0, APTT 27.2 09/07/21 13:45: Sodium 137, Potassium 4.0, Chloride 101, Carbon Dioxide 29.0, Anion Gap 7, BUN 25 H, Creatinine 0.88, Estim Creat Clear Calc 30.27, Est GFR (MDRD) Af Amer 79, Est GFR (MDRD) Non-Af 66, BUN/Creatinine Ratio 28.3 H, Glucose 95, Calcium 8.8, Total Bilirubin 0.40, AST 24, ALT 18, Alkaline Phosphatase 164 H, Total Protein 6.6, Albumin 3.1 L, Globulin 3.5, Albumin/Globulin Ratio 0.9, TSH 9.23 H 09/07/21 13:45: Lactic Acid 0.8 ABG Data ABG results: ABG 09/07/21 13:51 Specimen Type OSMANY VBG pH 7.33 VBG pO2 16 L* VBG HCO3 28 H VBG Total CO2 30 VBG O2 Sat (Calc) 19 L VBG Base Excess 3 POC Mix VBG pCO2 Pt Tmp 53.4 H Crit Call To/Read Back Yes Blood Gas Notified Whom meza Blood Gas Notified Time 13:53:16 Assessment & Plan Assessment/Plan (1) Beta inessa toxicity: (2) Bradycardia, sinus: PLAN: The patient is an 81 y/o F w/ PMHx: Former EtOH Abuse, HTN, Gluten intolerance, COPD, Former tobacco use, Hx CVA, Chronic L hip pain w/ dislocation following w/ pain management (Dr. Boateng) who presents to the [facility] ED on 09/07/21 with history of living with individuals who have deferred any in home care or evaluations potentially secondary to pending warrants with attempts by [facility] RN to enter the home to check up on the patient as she has chronic significant pain with chronic left hip dislocation issues not considered a surgical candidate in chronic pain management and noted to have missed her last several pain management visits with no potential refills on her pain medications or Ativan for nearly the last month prompting call to police unfortunately finding the patient very disheveled with poor home environment with family admitting that she has been confused and hallucinating for the last several days and that the believe over the last 24 to 48 hours she took unknown quantity of potentially at least half her doses of metoprolol, lisinopril and potentially Plavix. #1. Acute beta-inessa overdose, potentially overdose ingestion additionally of PUSHPA inhibitor/Plavix with significant bradycardia and hypoglycemia: We will admit to the ICU, discussed plan with ED physician and will continue D5 supplem entation, increase given still hypoglycemic in the ED with frequent every hour Accu-Cheks, being administered glucagon and calcium gluconate in the ED which may be repeated pending blood sugar and heart rate trending, maintain on fall and aspiration precautions, every 2 hours turns as needed, continue case management/PT/OT consultations, utilities manager aware of case and did discuss at length and agrees with current interventions. We will have as needed atropine if needed and will place pads in case of need. Discussed with utilities manager and will have low threshold to involve cardiology if necessary #2. 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 #3. Acute encephalopathy, reported hallucinations, suspect secondary to #1 and pain with #2: Patient in the ED is awake, alert and oriented to self, place, recent events, year, president, history of confusion was given by family and unclear if this source can be taken appropriately, therapies as well as case management consulted as noted, maintain on fall and aspiration precautions, continue treatment as noted above. #4. Mechanical falls, failure to thrive adult: Patient with evidence of bruises to the face, noted to have make-up covering these up, discussed frankly and she said that she had hidden these as she was afraid of being taken away, CT of the brain was obtained with no acute intracranial findings, therapies consulted, maintain on fall precautions, case management consulted. #5. Severe protein calorie malnutrition: Evidenced by significantly reduced BMI, obvious muscle and fat loss, nutrition consulted. #6. Hypertension: Holding patient beta-inessa and lisinopril given overdose, also monitor blood pressure, as needed IV hydralazine. #7. Hypothyroidism with incidentally noted Abnormal TSH: TSH 9.23, will obtain free T4 and T3. Continue in the interim home levothyroxine regimen. #8. Chronic anemia/iron deficiency anemia: Admission hemoglobin 12, baseline 11-12, stable, trend, continue iron supplementation. #9. Allergic rhinitis: Patient on chronic Singulair regimen, will hold especially given history of hallucinations. #10. Chronic COPD: Not on any routine inhalers, will have as needed albuterol, encourage head of bed and I-S. #11. Former tobacco use: Encourage continued tobacco cessation. #12. Former alcohol abuse: Patient reports still being sober for nearly 2 years now, encouraged continued sobriety. #13. History CVA: Patient with history of CVA x3 per record, given potential recent significant ingestion of Plavix we will temporarily hold, holding lisinopril and beta-inessa also secondary to overdose, not on statin therapy, defer given age. #14. DVT prophylaxis: SCDs, Lovenox. #15. CODE status: Given patient upon evaluation with mental status completely intact, discussed CODE status at length including difference between FULL code, DNR-CCA and DNR-CC status. Following discussions about the differences in these status, requested Full Code status. Advanced Care Planning Face to Face Time: 16 minutes. Charges/Coding Visit Charges Inpatient E&M: 55104 Init Hosp L3 Procedures Hospitalists Procedures: 12390 Advncd Care Plan 30 Min
[2021-09-07 15:00] LABS: Bacteria 0 SEEN /hpf (None Seen); Mucous, Urine 0 SEEN /hpf (<or=2+); Red Blood Cells-Urine 0 SEEN /hpf (0-5); Squamous Epithelial Cells - UA 0 SEEN /hpf (5-10); White Blood Cells 0 SEEN /hpf (0-5)
[2021-09-07 15:05] LABS: Color, Urine Straw (Yellow); Glucose, Dipstick Normal (Normal); Ketone-Dipstick Negative (Negative); Leukocyte Esterase-Dipstick Negative /ul (Negative); Nitrite-Dipstick Negative (Negative); Occult Blood-Urine Negative /ul (Negative); Protein-Dipstick Negative (Negative); Urine Bilirubin Dipstick Negative (Negative); Urine Clarity Clear (Clear); Urine Urobilinogen Normal (Normal)
--- NOTE | 2021-09-07 15:05 | RAD_ITS ---
STUDY: X-RAY - PELVIS AND LEFT HIP REASON FOR EXAM: Female, 81 years old. Injury/Pain TECHNIQUE: 2 views of the pelvis and hip. COMPARISON: Comparison is made with prior study dated 06/05/2021. FINDINGS: There is evidence of a superior posterior dislocation of the prosthetic right hip joint. 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 Electronically Signed: Augustin Mccarthy MD at 15:39 EDT ,
--- NOTE | 2021-09-07 15:16 | NURSING ---
ICU WHITE BETA SANJANA TOXICITY, HYPOGLYCEMIA, ENCEPHALOPATHY
[2021-09-07 15:31] LABS: Bedside Glucose 59 mg/dL (74-106)
--- NOTE | 2021-09-07 15:32 | NURSING ---
ICU 3
[2021-09-07] MEDS: Calcium Gluconate 1 GM/10 ML Vial IVP (15:41)
[2021-09-07] MEDS: Dext 5%-0.45% NS 1,000 ML 60 ML IV (15:41)
[2021-09-07] MEDS: Glucagon 1 MG/ML Syringe 5 MG IV (15:42)
--- NOTE | 2021-09-07 16:00 | CT_ITS ---
EXAMINATION : Head CT w/out contrast HISTORY : Head trauma on antiplatelet COMPARISON : None. TECHNIQUE : Multiple contiguous axial images were obtained from the skull base to the vertex without intravenous contrast. A radiation dose optimization technique was used for this scan. FINDINGS : There is no evidence for acute intracranial hemorrhage, mass effect, or midline shift. There is no extra-axial fluid collection. There are periventricular white matter changes consistent with chronic microvascular ischemic disease. There is sulcal widening and ventricular enlargement consistent with cerebral atrophy. There is normal graham-white differentiation, without CT evidence of acute ischemia or infarct. The skull base and calvarium are unremarkable. The orbits are unremarkable. The paranasal sinuses are clear. The mastoid air cells are well-aerated. The soft tissues are unremarkable. CT/Brain/Head without Contrast IMPRESSION: No acute intracranial abnormality. Chronic involutional and ischemic changes of the brain. Electronically Signed: Cj Mary MD at 16:46 EDT ,
--- NOTE | 2021-09-07 16:55 | ED.RN ---
[facility] [phone] to call with questions/updates.
--- NOTE | 2021-09-07 16:57 | ED.RN ---
called Hiwot, pt's friend to inform of pt's admission.
[2021-09-07 17:24] LABS: Magnesium 2.1 mg/dL (1.6-2.6); Phosphorus 3.5 mg/dL (2.5-4.9)
--- NOTE | 2021-09-07 17:26 | ECHOD_ITS ---
Reason For Study: Arrhythmia Procedure This was a 2D Doppler, Color Flow transthoracic echocardiogram. The exam was of adequate technical quality. Exam performed portable in ICU/CCU. Left Ventricle Normal LV size. Apical false tendon noted. Left ventricular systolic function is normal. The estimated ejection fraction is 65 %. No regional wall motion abnormalities noted. Right Ventricle Normal RV size. Normal systolic function. Atria The left atrium is mildly enlarged. Normal right atrium. No doppler evidence for ASD. Mitral Valve There is mild mitral annular calcification. Tension of the mitral annular calcification onto the base of the posterior mitral valve leaflet. Mild (1+) mitral valve insufficiency. Tricuspid Valve Normal tricuspid valve. Mild tricuspid valve insufficiency. Right ventricular systolic pressure estimated to be 49 mmHg. Aortic Valve The aortic valve leaflets are not well visualized, however, based upon the 2D echocardiographic images obtained there appears to be moderate focal thickening and calcification and partial restriction. Pulmonic Valve The pulmonic valve is not well visualized. Great Vessels Normal sized aortic root. Pericardium/Pleural No pericardial effusion. MMode/2D Measurements & Calculations LVIDd: 3.2 cm IVSd: 1.3 cm Ao root diam: 3.4 cm LVIDs: 1.8 cm LVPWd: 0.94 cm RVDd: 3.4 cm FS: 44.4 % LAV(MOD-bp): 57.3 ml LVAd ap4: 17.9 cm2 LVAd ap2: 17.3 cm2 LAV(MOD-bp) Indexed: 41.9 ml/m2 LVLd ap4: 6.4 cm LVLd ap2: 6.4 cm LAV(MOD-sp2): 51.2 ml EDV(MOD-sp4): 41.2 ml EDV(MOD-sp2): 38.4 ml LAV(MOD-sp4): 62.6 ml EDV(sp4-el): 42.3 ml EDV(sp2-el): 39.5 ml LVAs ap4: 9.6 cm2 LVAs ap2: 9.5 cm2 LVLs ap4: 5.6 cm LVLs ap2: 5.7 cm ESV(MOD-sp4): 13.8 ml ESV(MOD-sp2): 13.7 ml ESV(sp4-el): 14.0 ml ESV(sp2-el): 13.5 ml EF(MOD-sp4): 66.4 % EF(MOD-sp2): 64.2 % EF(sp4-el): 66.8 % SV(MOD-sp4): 27.3 ml SV(MOD-sp2): 24.7 ml SV(sp4-el): 28.2 ml LA dimension(2D): 2.4 cm LA A4 area: 20.9 cm2 RA A4 area: 16.3 cm2 Doppler Measurements & Calculations MV E max gerald: 79.3 cm/sec Lat Peak E' Gerald: 4.7 cm/sec Med Peak E' Gerald: 5.8 cm/sec MV A max gerald: 65.7 cm/sec E/E' lat: 16.8 E/E' med: 13.8 MV E/A: 1.2 Ao V2 max: 115.4 cm/sec LV V1 max: 86.4 cm/sec PA V2 max: 75.6 cm/sec Ao max P.3 mmHg LV V1 max P.0 mmHg TR max gerald: 292.3 cm/sec TR max P.2 mmHg ECHO/Echo Complete Interpretation Summary Left ventricular systolic function is normal. The estimated ejection fraction is 65 %. Apical false tendon noted. The left atrium is mildly enlarged. There is mild mitral annular calcification. Tension of the mitral annular calcification onto the base of the posterior mitr al valve leaflet. Mild (1+) mitral valve insufficiency. Mild tricuspid valve insufficiency. The aortic valve leaflets are not well visualized, however, based upon the 2D e chocardiographic images obtained there appears to be moderate focal thickening and calcification and partial restriction. Right ventricular systolic pressure estimated to be 49 mmHg c/w pulmonary hyper tension. Transmitral diastolic flow velocities suggest diastolic dysfunction (pseudonorm al pattern). Ordering Physician: Carlie Granados Referring Physician: Duncan Boateng Performed By: Saida King RDCS
[2021-09-07 17:45] LABS: Bedside Glucose 67 mg/dL (74-106)
[2021-09-07] MEDS: Dext 5%-0.45% NS 1,000 ML 100 ML IV (17:52)
[2021-09-07 18:25] LABS: Bedside Glucose 60 mg/dL (74-106)
[2021-09-07 18:27] LABS: Anion Gap 5 (5-15); BUN 24 mg/dL (7-18); BUN/Creat Ratio 31.6 RATIO (10-20); Calcium,Total 9.1 mg/dL (8.5-10.1); Chloride 104 mmol/L (98-107); Creatinine, Serum 0.76 mg/dL (0.55-1.02); EST Glomerular Filtration Rate 78 mL/min (>60); Est Glom Filt Rate - Afr Amer 94 mL/min (>60); Glucose 63 mg/dL (74-106); Potassium 3.8 mmol/L (3.5-5.1); Sodium Level 139 mmol/L (136-145)
[2021-09-07] MEDS: Dextrose 10%-Water 250 ML 999 ML IV (18:32)
[2021-09-07 18:33] LABS: Troponin-I HS 6 pg/mL (3.0-54.0)
[2021-09-07] MEDS: Dextrose 10%-Water 250 ML 60 ML IV ×2 (18:53→23:07)
[2021-09-07 19:01] LABS: Bedside Glucose 132 mg/dL (74-106)
[2021-09-07] MEDS: MELATONIN 3 MG TABLET PO (20:00)
[2021-09-07] MEDS: Acetaminophen 325 MG Tablet 650 MG PO (20:00)
[2021-09-07 22:06] LABS: Bedside Glucose 101 mg/dL (74-106)
[2021-09-07 22:06] LABS: Bedside Glucose 129 mg/dL (74-106)
[2021-09-07 22:44] LABS: Troponin-I HS 7 pg/mL (3.0-54.0)
[2021-09-08] VITALS (33 sets, daily range): BP systolic 113–187; BP diastolic 63–110; PULSE 46–119; RESP 14–23; TEMP 36.6–37; O2SAT 91–100
[2021-09-08] MEDS: Acetaminophen 325 MG Tablet 650 MG PO ×3 (01:05→22:42)
[2021-09-08 01:16] LABS: Bedside Glucose 73 mg/dL (74-106)
[2021-09-08 01:16] LABS: Bedside Glucose 87 mg/dL (74-106)
[2021-09-08 01:16] LABS: Bedside Glucose 105 mg/dL (74-106)
[2021-09-08 02:10] LABS: Bedside Glucose 67 mg/dL (74-106)
[2021-09-08 03:06] LABS: Bedside Glucose 83 mg/dL (74-106)
[2021-09-08 03:13] LABS: Absolute Lymphocyte Count 1.55 X10^3/uL (0.83-4.51); Absolute Neutrophil Count 3.9 X10^3/uL (2.0-7.7); Basophil# 0.09 X10^3/uL; Basophil% 1.4 % (0-1); Eosinophil# 0.19 X10^3/uL; Hematocrit 33.7 % (37-47); Hemoglobin 10.7 g/dL (12.0-15.0); Lymphocyte # 1.55 X10^3/ul (0.83-4.51); Lymphocyte % 24.4 % (19-41); Mean Corp Hgb Conc 31.8 g/dL (32-36); Mean Corpuscular Hgb 28.4 pg (27.0-32.0); Mean Corpuscular Volume 89.4 fL (81-99); Mean Platelet Vol. 9.3 fl (6.2-12.0); Monocyte% 9.5 % (0-10); NRBC Flagged by Analyzer 0 % (0-5); Neutrophil # 3.88 X10^3/uL (2.7-7.7); Neutrophil % 61.2 % (47-70); Platelet Count 387 K/mm3 (150-450); RBC Distribution Width CV 15.9 % (11.6-14.6); Red Blood Count 3.77 M/mm3 (4.2-5.4); White Blood Count 6.3 K/mm3 (4.4-11.0)
[2021-09-08] MEDS: Dextrose 10%-Water 250 ML 60 ML IV ×2 (03:54→08:00)
[2021-09-08 04:06] LABS: Bedside Glucose 123 mg/dL (74-106)
[2021-09-08 04:47] LABS: ALB/GLOB Ratio 0.8 RATIO (0.9-2.4); AST(SGOT) 21 U/L (15-37); Alanine Aminotransfer ALT/SGPT 18 U/L (13-56); Albumin, Serum 2.6 g/dL (3.2-5.0); Alkaline Phosphatase 163 U/L (45-117); Anion Gap 6 (5-15); BUN 24 mg/dL (7-18); BUN/Creat Ratio 33.8 RATIO (10-20); Calcium,Total 8.7 mg/dL (8.5-10.1); Chloride 98 mmol/L (98-107); Creatinine, Serum 0.71 mg/dL (0.55-1.02); EST Glomerular Filtration Rate 84 mL/min (>60); Est Glom Filt Rate - Afr Amer 102 mL/min (>60); Free T3 1.4 pg/mL (2.18-3.98); Globulin 3.1 g/dL (2.2-4.2); Glucose 117 mg/dL (74-106); Potassium 3.2 mmol/L (3.5-5.1); Protein, Total 5.7 g/dL (6.4-8.2); Sodium Level 135 mmol/L (136-145); T4 Free Direct 0.98 ng/dL (0.76-1.46)
--- NOTE | 2021-09-08 05:07 | EKG12_ITS ---
Test Reason : AM EKG Blood Pressure : / mmHG Vent. Rate : 048 BPM Atrial Rate : 048 BPM P-R Int : 230 ms QRS Dur : 090 ms QT Int : 468 ms P-R-T Axes : 086 094 076 degrees QTc Int : 418 ms Sinus bradycardia with 1st degree A-V block Septal infarct , age undetermined Abnormal ECG Confirmed by ANTONIETTA HERNANDEZ, MARTÍNEZ ([id number]), book or script editor AUGUSTINE POWELL ([id number]) on 09/10/2021 12:51:10 PM Referred By: Confirmed By:MARTÍNEZ MANE MD
--- NOTE | 2021-09-08 05:55 | EKG12_ITS ---
Test Reason : Blood Pressure : / mmHG Vent. Rate : 070 BPM Atrial Rate : 070 BPM P-R Int : 000 ms QRS Dur : 090 ms QT Int : 386 ms P-R-T Axes : 000 097 072 degrees QTc Int : 416 ms Sinus rhythm Anteroseptal infarct , age undetermined Abnormal ECG Confirmed by ANTONIETTA HERNANDEZ, MARTÍNEZ ([id number]), acquisition editor AUGUSTINE POWELL ([id number]) on 09/10/2021 12:45:13 PM Referred By: Confirmed By:MARTÍNEZ MANE MD
--- NOTE | 2021-09-08 06:00 | EX.PCM.CONCC ---
Assessment & Plan Assessment/Plan (1) Beta inessa toxicity: PLAN: RECOMMENDATIONS: 1. Wean from D10 infusion. Continue to monitor blood sugars throughout the day to ensure stabilization. 2. Advance diet as tolerated. 3. Continue appropriate DVT prophylaxis. 4. As needed bronchodilator therapy. IMPRESSIONS: 1. Suspected unintentional overdose of beta-inessa The patient's medical history is difficult to discern as the patient is not able to provide much detail. The patient's home situation is not ideal and she lacks social support. The patient was previously being followed by pain management and it is unclear whether she still has access to any opiates or Ativan. There is some concern that she may have been confused regarding the medications that she was truly ingesting leading to the unintentional overdose. Plan to continue current supportive measures. While the patient remains bradycardic, she is otherwise hemodynamically stable. Atropine can be utilized if needed. 2. Hypoglycemia The patient has demonstrated persistent hypoglycemia requiring D10 infusion. Her blood sugars appear to have stabilized this morning. We will attempt to wean the patient from the dextrose containing infusion and liberalize her diet. Continue to monitor blood sugars. 3. Encephalopathy Likely metabolic in etiology. It is unclear if the patient has underlying psychiatric issues or dementia as well. Continue supportive measures as noted above. 4. History of hypothyroidism/hypertension/anemia/questionable COPD Complicates care, management, recovery and prognosis. Continue home medications as indicated. Physical therapy to work with the patient. Case management/social work to assist with disposition needs and home situation. This note was generated with [employer]ark[employer] dictation software. It may contain incorrect words, spelling, and punctuation that were not noted in checking the note before signing. HPI Consult Data Date of Consult: 09/09/21 HPI Narrative Reason for Consultation: Beta-inessa overdose HPI Narrative: The patient is an 81-year-old female, with a history as outlined below, who presented to the emergency department via EMS on a 16 with altered mentation. The patient has a history of COPD, former alcohol dependency in chronic left hip pain, for which she follows with pain management. The patient is a poor historian so only very limited history could be obtained directly from the patient. Nevertheless, it appears that the patient may have inadvertently taken several of her baseline home medications in excess including metoprolol, lisinopril and potentially Plavix. On presentation to the emergency department, the patient was noted to be afebrile but was hypertensive and bradycardic. Initial laboratory evaluation revealed no evidence of a leukocytosis. Coagulation profile was within normal limits. Chemistry profile was unrevealing, with the exception of hypoglycemia. TSH was elevated at 9.23 with a normal free T4. Urinalysis was unremarkable. 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 CT head revealed chronic involutional changes. In addition to supplemental fluids, the patient received dextrose supplementation and glucagon. She was subsequently admitted to the medical intensive care unit for further management. Overnight, the patient has remained afebrile and hemodynamically stable. She remains bradycardic and hypoglycemic on a D10 infusion. Potassium is low this morning at 3.2. REPLACED BY [facility] Medical History (Updated 09/07/21 @ 15:[address] Lucas Meza MD) COPD (chronic obstructive pulmonary disease) Former smoker Gluten intolerance Hypertension Smoker Stroke/cerebrovascular accident Home Medications levothyroxine 75 mcg PO DAILY 06/05/21 [History Last Taken 09/06/21] lisinopril 20 mg PO DAILY 06/05/21 [History Last Taken 1 Week Ago ~08/31/21] metoprolol succinate 50 mg PO DAILY 06/05/21 [History Last Taken 1 Week Ago ~08/31/21] montelukast [Singulair] 10 mg PO QPM 06/05/21 [History Last Taken 09/06/21] clopidogrel 75 mg PO DAILY 09/07/21 [History Last Taken 1 Week Ago ~08/31/21] ferrous sulfate [FeroSul] 325 mg PO DAILY 09/07/21 [History Last Taken 09/06/21] Allergy/AdvReac Type Severity Reaction Status Date / Time meperidine [From Demerol] Allergy Rash Verified 09/07/21 13:19 Family History (Updated 09/07/21 @ 17:[address] Carlie Granados MD) Mother Hypertension Heart disease Father Hypertension Cancer Hx prostate CA. Other CVA (cerebral vascular accident) Surgical History (Updated 09/07/21 @ 17:[address] Carlie Granados MD) History of total left hip replacement Hx of breast implants, bilateral Social History (Updated 09/07/21 @ 17:[address] Carlie Granados MD) household members: other details: Son's girlfriend Smoking Status: Former smoker how long ago did patient quit smoking: Reports recently quit cigarette tobacco, prior heavy since youth. 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 substance use type: does not use ROS Constitutional Constitutional: Reports fatigue and weakness Eyes Eyes: Denies blurry vision or change in vision ENT HEENT: Denies dizziness, dysphagia or epistaxis Cardiovascular Cardiovascular: Denies dizziness or dyspnea Respiratory/Chest Respiratory/Chest: Denies cough or dyspnea Gastrointestinal Gastrointestinal: Denies abdominal pain, diarrhea, nausea or vomiting Genitourinary Genitourinary: Denies difficulty urinating Musculoskeletal Musculoskeletal: Reports arthralgias, back pain and joint pain Integumentary Integumentary: Denies lesions, rash or skin ulcer Neurologic Neurologic: Reports confusion Psychiatric Psychiatric: Reports anxiety and depression Endocrine Endocrinology: Reports fatigue Hematologic/Lymphatic Hematologic/Lymphatic: Denies easy bleeding or easy bruising Physical Exam Const alert and no apparent distress General Appearance: cooperative HEENT normocephalic and head/scalp atraumatic Eyes PERRL and EOMs intact bilaterally Neck supple General: trachea midline Chest inspection of chest normal Resp Effort and Inspection: able to speak in complete sentences Auscultation: diminished lung sounds; Negative for rales, rhonchi or wheezes Cardio S1 normal heart sound and S2 normal heart sound Rate: bradycardia GI normal to inspection, nondistended, normoactive bowel sounds Extremity no clubbing, cyanosis or edema Skin no rashes or lesions noted Neuro CN's II-XII intact bilaterally, moves all extremities and no focal motor deficits Psych cooperative and affect normal Lab / Micro Data Result Diagrams: 09/09/21 04:40 09/09/21 04:40 Labs: Laboratory Results - last 24 hr 09/07/21 13:37: POC Glucose 45 L 09/07/21 13:45: WBC 5.5, RBC 4.28, Hgb 12.0, Hct 38.8, MCV 90.7, MCH 28.0, MCHC 30.9 L, RDW Std Deviation 53.7 H, RDW Coeff of María 16.0 H, Plt Count 424, MPV 9.1, Immature Gran % (Auto) 0.500, Neut % (Auto) 57.8, Lymph % (Auto) 27.1, [place] % (Auto) 9.5, Eos % (Auto) 3.5, Baso % (Auto) 1.6 H, Absolute Neuts (auto) 3.2, Absolute Lymphs (auto) 1.48, Nucleated RBC % 0 09/07/21 13:45: PT 13.1, INR 1.0, APTT 27.2 09/07/21 13:45: Sodium 137, Potassium 4.0, Chloride 101, Carbon Dioxide 29.0, Anion Gap 7, BUN 25 H, Creatinine 0.88, Estim Creat Clear Calc 30.27, Est GFR (MDRD) Af Amer 79, Est GFR (MDRD) Non-Af 66, BUN/Creatinine Ratio 28.3 H, Glucose 95, Calcium 8.8, Total Bilirubin 0.40, AST 24, ALT 18, Alkaline Phosphatase 164 H, Total Protein 6.6, Albumin 3.1 L, Globulin 3.5, Albumin/Globulin Ratio 0.9, TSH 9.23 H 09/07/21 13:45: Lactic Acid 0.8 09/07/21 13:45: Phosphorus 3.5, Magnesium 2.1 09/07/21 14:50: Urine Color Straw, Urine Clarity Clear, Urine pH 6.0, Ur Specific [place] 1.010, Urine Protein Negative, Urine Glucose (UA) Normal, Urine Ketones Negative, Urine Occult Blood Negative, Urine Nitrite Negative, Urine Bilirubin Negative, Urine Urobilinogen Normal, Ur Leukocyte Esterase Negative, Urine RBC 0 SEEN, Urine WBC 0 SEEN, Ur Squamous Epith Cells 0 SEEN, Urine Bacteria 0 SEEN, Urine Mucus 0 SEEN 09/07/21 15:25: POC Glucose 59 L 09/07/21 17:40: POC Glucose 67 L 09/07/21 18:00: Sodium 139, Potassium 3.8, Chloride 104, Carbon Dioxide 30.0, Anion Gap 5, BUN 24 H, Creatinine 0.76, Estim Creat Clear Calc 29.40, Est GFR (MDRD) Af Amer 94, Est GFR (MDRD) Non-Af 78, BUN/Creatinine Ratio 31.6 H, Glucose 63 L, Calcium 9.1 09/07/21 18:00: Troponin I High Sens 6 09/07/21 18:22: POC Glucose 60 L 09/07/21 18:56: POC Glucose 132 H 09/07/21 20:02: POC Glucose 129 H 09/07/21 21:02: POC Glucose 101 09/07/21 22:05: Troponin I High Sens 7 09/07/21 22:05: POC Glucose 73 L 09/07/21 23:05: POC Glucose 87 09/08/21 00:04: POC Glucose 105 09/08/21 01:01: POC Glucose 83 09/08/21 02:00: POC Glucose 67 L 09/08/21 03:00: WBC 6.3, RBC 3.77 L, Hgb 10.7 L, Hct 33.7 L, MCV 89.4, MCH 28.4, MCHC 31.8 L, RDW Std Deviation 52.0 H, RDW Coeff of María 15.9 H, Plt Count 387, MPV 9.3, Immature Gran % (Auto) 0.500, Neut % (Auto) 61.2, Lymph % (Auto) 24.4, [place] % (Auto) 9.5, Eos % (Auto) 3.0, Baso % (Auto) 1.4 H, Absolute Neuts (auto) 3.9, Absolute Lymphs (auto) 1.55, Nucleated RBC % 0 09/08/21 03:00: Sodium 135 L, Potassium 3.2 L, Chloride 98, Carbon Dioxide 31.0, Anion Gap 6, BUN 24 H, Creatinine 0.71, Estim Creat Clear Calc 29.40, Est GFR (MDRD) Af Amer 102, Est GFR (MDRD) Non-Af 84, BUN/Creatinine Ratio 33.8 H, Glucose 117 H, Calcium 8.7, Total Bilirubin 0.20, AST 21, ALT 18, Alkaline Phosphatase 163 H, Total Protein 5.7 L, Albumin 2.6 L, Globulin 3.1, Albumin/Globulin Ratio 0.8 L, Free T4 0.98, Free T3 pg/dL 1.4 L 09/08/21 03:03: POC Glucose 123 H ABG Data ABG results: ABG 09/07/21 13:51 Specimen Type OSMANY VBG pH 7.33 VBG pO2 16 L* VBG HCO3 28 H VBG Total CO2 30 VBG O2 Sat (Calc) 19 L VBG Base Excess 3 POC Mix VBG pCO2 Pt Tmp 53.4 H Crit Call To/Read Back Yes Blood Gas Notified Whom meza Blood Gas Notified Time 13:53:16 Radiology Impression Hip/Pelvis X-Ray 09/07/21 15:05 IMPRESSION: 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 Electronically Signed: Augustin Mccarthy MD at 15:39 EDT , Brain CT 09/07/21 16:00 IMPRESSION: No acute intracranial abnormality. Chronic involutional and ischemic changes of the brain. Electronically Signed: Cj Mary MD at 16:46 EDT , Charges/Coding Visit Charges Inpatient E&M: 57203 Init Hosp L3
[2021-09-08] MEDS: Levothyroxine 75 MCG Tablet PO (06:10)
--- NOTE | 2021-09-08 07:10 | PCM.PN.HOSP ---
Subjective Subjective Follow-up for multiple medications overdose. Patient has history of anxiety and depression. Patient was feeling overwhelmed therefore took the medications. When the history taken from the patient, his history is very fragmented, patchy and tangential. She is not able to keep herself on one topic. Objective Data Objective Data Vital Signs: Vital Signs Temp Pulse Resp BP Pulse Ox 98.6 F 50 L 19 H 146/71 H 97 09/08/21 04:00 09/08/21 06:00 09/08/21 06:00 09/08/21 06:00 09/08/21 06:00 Oxygen Delivery Method Room Air Weight: 91 lb 7.869 oz Body Mass Index (BMI) 16.7 Intake & Output: Intake and Output for Last 24 Hours 09/06/21 09/07/21 09/08/21 23:59 23:59 23:59 Intake Total 1205.17 / 1205.17 730 / 730 Output Total 200 / 200 250 / 250 Balance 1005.17 / 1005.17 480 / 480 Lab / Micro Data Result Diagrams: 09/08/21 03:00 09/08/21 03:00 Labs: Laboratory Results - last 24 hr 09/07/21 13:37: POC Glucose 45 L 09/07/21 13:45: WBC 5.5, RBC 4.28, Hgb 12.0, Hct 38.8, MCV 90.7, MCH 28.0, MCHC 30.9 L, RDW Std Deviation 53.7 H, RDW Coeff of María 16.0 H, Plt Count 424, MPV 9.1, Immature Gran % (Auto) 0.500, Neut % (Auto) 57.8, Lymph % (Auto) 27.1, [place] % (Auto) 9.5, Eos % (Auto) 3.5, Baso % (Auto) 1.6 H, Absolute Neuts (auto) 3.2, Absolute Lymphs (auto) 1.48, Nucleated RBC % 0 09/07/21 13:45: PT 13.1, INR 1.0, APTT 27.2 09/07/21 13:45: Sodium 137, Potassium 4.0, Chloride 101, Carbon Dioxide 29.0, Anion Gap 7, BUN 25 H, Creatinine 0.88, Estim Creat Clear Calc 30.27, Est GFR (MDRD) Af Amer 79, Est GFR (MDRD) Non-Af 66, BUN/Creatinine Ratio 28.3 H, Glucose 95, Calcium 8.8, Total Bilirubin 0.40, AST 24, ALT 18, Alkaline Phosphatase 164 H, Total Protein 6.6, Albumin 3.1 L, Globulin 3.5, Albumin/Globulin Ratio 0.9, TSH 9.23 H 09/07/21 13:45: Lactic Acid 0.8 09/07/21 13:45: Phosphorus 3.5, Magnesium 2.1 09/07/21 14:50: Urine Color Straw, Urine Clarity Clear, Urine pH 6.0, Ur Specific [place] 1.010, Urine Protein Negative, Urine Glucose (UA) Normal, Urine Ketones Negative, Urine Occult Blood Negative, Urine Nitrite Negative, Urine Bilirubin Negative, Urine Urobilinogen Normal, Ur Leukocyte Esterase Negative, Urine RBC 0 SEEN, Urine WBC 0 SEEN, Ur Squamous Epith Cells 0 SEEN, Urine Bacteria 0 SEEN, Urine Mucus 0 SEEN 09/07/21 15:25: POC Glucose 59 L 09/07/21 17:40: POC Glucose 67 L 09/07/21 18:00: Sodium 139, Potassium 3.8, Chloride 104, Carbon Dioxide 30.0, Anion Gap 5, BUN 24 H, Creatinine 0.76, Estim Creat Clear Calc 29.40, Est GFR (MDRD) Af Amer 94, Est GFR (MDRD) Non-Af 78, BUN/Creatinine Ratio 31.6 H, Glucose 63 L, Calcium 9.1 09/07/21 18:00: Troponin I High Sens 6 09/07/21 18:22: POC Glucose 60 L 09/07/21 18:56: POC Glucose 132 H 09/07/21 20:02: POC Glucose 129 H 09/07/21 21:02: POC Glucose 101 09/07/21 22:05: Troponin I High Sens 7 09/07/21 22:05: POC Glucose 73 L 09/07/21 23:05: POC Glucose 87 09/08/21 00:04: POC Glucose 105 09/08/21 01:01: POC Glucose 83 09/08/21 02:00: POC Glucose 67 L 09/08/21 03:00: WBC 6.3, RBC 3.77 L, Hgb 10.7 L, Hct 33.7 L, MCV 89.4, MCH 28.4, MCHC 31.8 L, RDW Std Deviation 52.0 H, RDW Coeff of María 15.9 H, Plt Count 387, MPV 9.3, Immature Gran % (Auto) 0.500, Neut % (Auto) 61.2, Lymph % (Auto) 24.4, [place] % (Auto) 9.5, Eos % (Auto) 3.0, Baso % (Auto) 1.4 H, Absolute Neuts (auto) 3.9, Absolute Lymphs (auto) 1.55, Nucleated RBC % 0 09/08/21 03:00: Sodium 135 L, Potassium 3.2 L, Chloride 98, Carbon Dioxide 31.0, Anion Gap 6, BUN 24 H, Creatinine 0.71, Estim Creat Clear Calc 29.40, Est GFR (MDRD) Af Amer 102, Est GFR (MDRD) Non-Af 84, BUN/Creatinine Ratio 33.8 H, Glucose 117 H, Calcium 8.7, Total Bilirubin 0.20, AST 21, ALT 18, Alkaline Phosphatase 163 H, Total Protein 5.7 L, Albumin 2.6 L, Globulin 3.1, Albumin/Globulin Ratio 0.8 L, Free T4 0.98, Free T3 pg/dL 1.4 L 09/08/21 03:03: POC Glucose 123 H ABG Data ABG results: ABG 09/07/21 13:51 Specimen Type OSMANY VBG pH 7.33 VBG pO2 16 L* VBG HCO3 28 H VBG Total CO2 30 VBG O2 Sat (Calc) 19 L VBG Base Excess 3 POC Mix VBG pCO2 Pt Tmp 53.4 H Crit Call To/Read Back Yes Blood Gas Notified Whom meza Blood Gas Notified Time 13:53:16 Radiography Diagnostic Testing: Radiology Impression Hip/Pelvis X-Ray 09/07/21 15:05 IMPRESSION: 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 Electronically Signed: Augustin Mccarthy MD at 15:39 EDT , Brain CT 09/07/21 16:00 IMPRESSION: No acute intracranial abnormality. Chronic involutional and ischemic changes of the brain. Electronically Signed: Cj Mary MD at 16:46 EDT , Physical Exam Narrative Physical exam General: Alert, Oriented x3, Cooperative, HEENT: Atraumatic, PERRLA, EOMI, Normocephalic Oral: No Gingival or Mucosal Lesions/ Ulcerations Neck: Supple, No JVD, Negative Carotid Bruits Lungs: Air entry diminished in bilateral lung bases. No crepitation/rhonchi Cardiovascular: Sinus bradycardia, heart rate in low 50s, Normal S1, Normal S2, No murmurs Abdomen: Bowel Sounds Present, Soft, Non Tender, Non-Distended : No renal angle tenderness. No suprapubic tenderness. Extremities: No edema, Capillary Refill Less than 3 Seconds Skin: No rashes, No breakdown Musculoskeletal: No Tenderness to Palpation of Joints or Extremities Neurological: Cranial nerves II-XII grossly intact, DTR 2+/4 and Symmetrical, Neuro grossly intact Psych/Mental Status: Anxious Assessment & Plan Assessment/Plan (1) Beta inessa toxicity: (2) Bradycardia, sinus: PLAN: The patient is an 81 y/o F is being admitted in ICU with altered mental status, confusion, hallucination for last several days. 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 She took unknown quantity of potentially at least half her doses of metoprolol, lisinopril and potentially Plavix. As per EMS note, she also took Ativan. As per family, her last normal self was , 4 days ago. 1. Acute toxic encephalopathy due to multiple medications, predominantly beta-inessa overdose, PUSHPA inhibitor, Plavix and Ativan: Patient was found significant bradycardic; heart rate 44/min, hypertensive BP 201/97 and hypoglycemic, fingerstick glucose 45. BMP glucose was 95. Lactic acid 0.8. TSH 9.23. UA negative. SG 1.010. Patient was given glucagon and calcium gluconate in ED. Patient further admitted in ICU fence maker consulted. Patient will need mental crisis team once she is medically cleared 2. History of left Hip fracture with history of mechanical fall, failure to thrive: X-ray of left hip as mentioned above. Patient is to follow swelling and management. 3. Severe protein calorie malnutrition: Evidenced by significantly reduced BMI, obvious muscle and fat loss, nutrition consulted. 4. Hypertensive urgency: Blood pressure was controlled. Most recent 146/71. Continue to hold beta-inessa and lisinopril. 5. Hypothyroidism with with incidental high TSH: TSH 9.23, free T4 normal. Free T3 1.4, low. Difficult infiltrate in view of overdose but seem patient is hypothyroidism, probably not adherent to levothyroxine medications 6. Anemia of chronic anemia/iron deficiency anemia: Admission hemoglobin 12, baseline 11-12. 7. 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 8 DVT prophylaxis: SCDs, Lovenox. CODE status: Full code Charges/Coding Visit Charges Inpatient E&M: 87821 Subs Hosp L3
[2021-09-08] MEDS: Potassium Chloride 10mEq/100mL 10 MEQ/100 ML IV.SOLN. 100 MEQ IV BOLUS ×4 (07:27→10:14)
[2021-09-08 07:45] LABS: Bedside Glucose 110 mg/dL (74-106)
[2021-09-08 07:45] LABS: Bedside Glucose 106 mg/dL (74-106)
[2021-09-08 07:45] LABS: Bedside Glucose 112 mg/dL (74-106)
[2021-09-08 07:45] LABS: Bedside Glucose 97 mg/dL (74-106)
[2021-09-08 08:05] LABS: Bedside Glucose 82 mg/dL (74-106)
[2021-09-08 09:01] LABS: Bedside Glucose 112 mg/dL (74-106)
[2021-09-08 09:55] LABS: Bedside Glucose 110 mg/dL (74-106)
[2021-09-08] MEDS: Enoxaparin 40 MG/0.4 ML Syringe 30 MG SC (10:01)
[2021-09-08 11:05] LABS: Bedside Glucose 105 mg/dL (74-106)
[2021-09-08 12:15] LABS: Bedside Glucose 106 mg/dL (74-106)
[2021-09-08] MEDS: Ferrous Sulfate 325 MG Tablet PO (12:22)
--- NOTE | 2021-09-08 12:30 | CASEMGMT ---
VERENA FERREIRA Face to Face with patient for initial transition planning/care coordination assessment. VERENA FERREIRA introduced self and role at [facility]. Patient lying in bed, alert and oriented but easily distracted and difficult to focus on conversation. Patient willing to participate in assessment and is able to answer all questions appropriately. Care providers, pharmacy, and demographics verified. Patient wishes to discharge home with resumption of HHC with [facility]. Patient states she has no further needs or concerns at this time. CM to follow for discharge planning needs that may arise. PCP: [facility] Specialists: none Preferred Pharmacy: [facility] in [place] Insurance: [facility] Prescription Benefit: yes Living Will/HPOA: patient states no at first but then states son Casey is HPOA LNOK: son Kevin, Daughter Any Living Arrangements: Patient states she lives with son Kevin and his girlfriend Hiwot in a single story home with 1 step to enter. Patient states that Hiwot helps her with her ADLs. When asked patient states she feels safe at home with son and his girlfriend. Transportation: [facility] DME/HHC: Patient states she has shower chair, raised toilet, grab bars, walker and home oxygen at home. Patient states that she got her home oxygen from a yardsale that her brother repairs and blow cool air in her nose. Patient is active with [facility]. Patient states that she has previously been to [facility] but will not go back there because of what happened. When asked what happened she said she was not a tattle tale and it made her too anxious to talk about it. VERENA FERREIRA discussed with patient that therapy would work with patient while at [facility] and make recommendations for at discharge. Patient states that she wants to go back home. Disposition Plan: TBD, pending course of treatment and progress with therapy. Selma VELAN, RN, CM
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
--- NOTE | 2021-09-08 15:51 | CHAPLAIN ---
Type of Pastoral Visit __x_ Initial Visit ___ Follow-up Visit ___ On-call Visit ___ General Patient Visit ___ Spiritual Assessment ___ Family Conference ___ Bereavement ___ Rapid Response ___ Code Blue ___ Other (describe below) Pastoral Care Referral From _x_ Patient ___ Family ___ Nurse ___ Physician ___ Clinical Psychologist Licensed ___ Silverlight Developer ___ Other (describe below) Sacrament/Intervention _x__ Active listening ___ Anointing ___ Pentecostalism ___ Bereavement ___ Communion ___ [place] exploration ___ _x__ Life review _x__ Prayer ___ Reconciliation ___ Sacrament of Sick _x__ Supportive presence ___ Wedding ___ Other (describe below) Pastoral Comments patient is very talkative; pt begins several times to talk about event(s) that brought her to hospital but would stop and say I don't want to talk about that anymore; patient did randomly talk about her life, people she knew, events of the past; pt welcomed presence of someone to talk to and the prayer; pt asked to pray the Lord's Prayer together
[2021-09-08 17:50] LABS: Bedside Glucose 81 mg/dL (74-106)
[2021-09-08] MEDS: MELATONIN 3 MG TABLET PO (22:42)
[2021-09-08] MEDS: 0.9% Saline Lock 10 ML Syringe IV (22:43)
[2021-09-08 23:01] LABS: Bedside Glucose 97 mg/dL (74-106)
--- NOTE | 2021-09-08 23:44 | CT_ITS ---
We are attempting to reach an attending provider to discuss findings. An addendum with communication details will be sent when the communication is complete. CT stroke brain/head without contrast FINDINGS: There is no evidence of hemorrhage. There is no evidence of fracture. Ventricles have a normal size without midline shift or mass effect. Basal ganglia are intact CT/STROKE Brain/Head without Cont IMPRESSION: Normal CT brain without contrast. Electronically Signed: Get Newton MD at 0:10 EDT ,
[2021-09-09] VITALS (21 sets, daily range): BP systolic 124–186; BP diastolic 69–101; PULSE 59–86; RESP 17–29; TEMP 36.4–37.6; O2SAT 89–100
--- NOTE | 2021-09-09 00:21 | CT_ITS ---
STUDY: CTA HEAD AND NECK WITH CONTRAST REASON FOR EXAM: Female, 81 years old. NEUROLOGICAL CHANGES, SEIZURE ON TABLE RADIATION DOSAGE (If Supplied By Facility): CTDIvol = ( 13.64 ) mGy, DLP = ( 452.73 ) mGycm TECHNIQUE: CT angiography was performed with a multi-detector CT scanner. Data acquisition was obtained from the skull base through the vertex following intravenous administration of IV 75mL Isovue-370. MIP images were reconstructed from the axial data set. Post-processing of the angiographic images was performed, with multiplanar reformation and 3D reconstruction. Individualized dose optimization techniques were used for this CT. COMPARISON: No relevant priors. FINDINGS: Normal bilateral petrous carotid arteries. Normal right cavernous carotid artery with a normal supraclinoid bifurcation. Normal left cavernous carotid artery with a normal supraclinoid bifurcation. Normal right A1 segments of the anterior cerebral artery. Normal left A1 segments of the anterior cerebral artery. Normal intact anterior communicating artery (ACOM). Normal bilateral A2 segments of the anterior cerebral arteries. Normal right M1 and M2 segments of the middle cerebral arteries, with a normal M1 bifurcation. Normal left M1 and M2 segments of the middle cerebral arteries, with a normal M1 bifurcation. Normal right posterior communicating artery (PCOM). Normal left posterior communicating artery (PCOM). Normal bilateral vertebral arteries. Normal basilar artery with a normal basilar bifurcation. The visualized bilateral superior cerebellar (SCA) arteries are normal. Normal bilateral P1, P2 and visualized P3 segments of the posterior cerebral arteries. There is no demonstrated aneurysm of the [place]. There is no demonstrated abnormality of the visualized brain. AORTIC ARCH: Normal visualized aortic arch. Normal origins of the brachiocephalic, left common carotid, and left subclavian arteries. RIGHT CAROTID ARTERIES: Normal right common carotid artery (CCA). Normal right common carotid bulb. Normal origin of the right internal carotid (ICA) artery without a hemodynamically significant stenosis. Normal visualized cervical portion of the right internal carotid artery. Normal origin of the right external carotid artery (ECA). LEFT CAROTID ARTERIES: Normal left common carotid artery (CCA). Normal left common carotid bulb. Normal origin of the left internal carotid (ICA) artery without a hemodynamically significant stenosis. Normal visualized cervical portion of the left internal carotid artery. Normal origin of the left external carotid artery (ECA). VERTEBRAL ARTERIES: Normal bilateral vertebral arteries. CT/CTA Head AND Neck W/ Contrast IMPRESSION: Normal CTA Head and neck with contrast. N.B. : The above Results were Read Back by Get Newton MD to Dr Ana MD, and understanding confirmed on 09/09/2021 00:57:09 (ET). Electronically Signed: Get Newton MD at 0:58 EDT ,
--- NOTE | 2021-09-09 00:57 | PN.HOSP_ITS ---
Hospitalist Note A rapid response was called on this patient in ICU at 2326 on 09/08/2021, patient suddenly became unresponsive while in bed, she did not respond to verbal or painful stimuli, monitor showed a sinus tachycardia with a rate at 140, over the next few minutes, patient began to awaken but she remained confused and would answer some questions but most questions she could not answer or follow commands. Patient's NIH stroke score was 17, a stroke team was called and the patient was taken down to radiology for a noncontrasted head CT. After the head CT was completed, patient was alert and responded appropriately to most questions, she was able to follow most commands, repeat NIH score was 11. Patient's head CT was unremarkable. Teleneurology saw the patient and was assisted in an examination of the patient, the neurologist did not recommend administering tPA, the neurologist did not recommend an MRI, it was recommended that the patient undergo a CTA of the head and neck. While the patient was being transferred into CT for a CTA of her head and neck, after she was moved from her bed to the CT table, she had a generalized tonic-clonic seizure that lasted approximately 1 to 2 minutes. This was followed by a short postictal period which appeared to last 10 to 15 minutes. CTA of the head and the neck showed no abnormality. Patient was transported back to ICU, she will be given IV Keppra at 1000 mg, she will be placed on Keppra 500 mg IV every 12 hours. Further note: I talked briefly with the patient's daughter by phone before the patient underwent her noncontrasted head CT, the daughter states that since the patient has had COVID in March of last year, she appears at times to have memory issues and show signs of confusion. Patient's past medical history in her chart here at the hospital states that she had 3 strokes in the past, this notation was dated May 2021-I asked the patient about this before she underwent her CTA of her head and neck and she states that he she believes this diagnosis may have been made at [facility]. Patient's daughter does not know of any history of strokes that the patient has had in the past.
[2021-09-09] MEDS: levETIRAcetam IV 1,000 MG/100 ML BAG 400 MG IV (01:08)
--- NOTE | 2021-09-09 01:14 | NURSING ---
8- Noticed on monitor that patient's HR increased from 60s to 140s. This RN went into patient's room to assess and patient and noticed patient to have agonal respirations and unresponsive. This RN called out to another RN to call a MIXING AND DISPENSING SUPERVISOR at 2328. Patient was maintaining O2 sats in the 90s on 2L/NC. Another RN started a second PIV and obtained an EKG. Patient's HR decreased to 90s and BP was 180s/100s. Blood Glucose is 97. 2335- Dr. Perez and several other RNs and RT are now at bedside assessing patient. 2340-Stroke Alert is called. Patient is waking up moaning and moving all extremities but appears to be aphasic and disoriented. Patient is being prepared to transport down to CT. 2342- Patient is transported to CT with Dr. Perez, RN, and RT. This RN called to notify [facility] of stroke alert. This RN was called and notified at [address] in [address] and Dr. Perez that patient's HR increased to 140s again and patient seized in CT scan and this was most likely the cause of patient's condition. 0045- Patient returned to floor and new orders to follow. Patient is stable at this time and vitals signs are WNL.
--- NOTE | 2021-09-09 01:42 | NURSING ---
0000- Dr. Perez called patient's daughter Lidya and notified her of patient's change in condition.
[2021-09-09 04:56] LABS: Absolute Lymphocyte Count 1.34 X10^3/uL (0.83-4.51); Absolute Neutrophil Count 6.1 X10^3/uL (2.0-7.7); Basophil# 0.08 X10^3/uL; Eosinophil# 0.05 X10^3/uL; Eosinophils% 0.6 % (0-5); Hematocrit 33.1 % (37-47); Hemoglobin 10.5 g/dL (12.0-15.0); Lymphocyte # 1.34 X10^3/ul (0.83-4.51); Lymphocyte % 15.9 % (19-41); Mean Corp Hgb Conc 31.7 g/dL (32-36); Mean Corpuscular Hgb 28.5 pg (27.0-32.0); Mean Corpuscular Volume 89.7 fL (81-99); Mean Platelet Vol. 9.3 fl (6.2-12.0); Monocyte# 0.81 X10^3/uL; Monocyte% 9.6 % (0-10); NRBC Flagged by Analyzer 0 % (0-5); Neutrophil % 72.4 % (47-70); Platelet Count 334 K/mm3 (150-450); RBC Distribution Width CV 16.1 % (11.6-14.6); RBC Distribution Width SD 53.1 fl (35.1-43.9); Red Blood Count 3.69 M/mm3 (4.2-5.4); White Blood Count 8.4 K/mm3 (4.4-11.0)
[2021-09-09 05:22] LABS: ALB/GLOB Ratio 0.9 RATIO (0.9-2.4); AST(SGOT) 18 U/L (15-37); Alanine Aminotransfer ALT/SGPT 17 U/L (13-56); Albumin, Serum 2.6 g/dL (3.2-5.0); Alkaline Phosphatase 142 U/L (45-117); Anion Gap 2 (5-15); BUN 24 mg/dL (7-18); BUN/Creat Ratio 30.3 RATIO (10-20); Calcium,Total 8.7 mg/dL (8.5-10.1); Chloride 99 mmol/L (98-107); Creatinine, Serum 0.79 mg/dL (0.55-1.02); EST Glomerular Filtration Rate 74 mL/min (>60); Est Glom Filt Rate - Afr Amer 90 mL/min (>60); Globulin 2.9 g/dL (2.2-4.2); Glucose 96 mg/dL (74-106); Protein, Total 5.5 g/dL (6.4-8.2); Sodium Level 136 mmol/L (136-145)
--- NOTE | 2021-09-09 06:33 | PN.CC_ITS ---
Assessment & Plan Assessment/Plan (1) Beta inessa toxicity: PLAN: RECOMMENDATIONS: 1. Await results of EEG. 2. Maintain seizure precautions. Continue Keppra and as needed Ativan. 3. Obtain neurology consultation. 4. Dietary advancement as tolerated. 5. Continue appropriate DVT prophylaxis. 6. As needed bronchodilator therapy. IMPRESSIONS: 1. Suspected unintentional overdose of beta-inessa The patient's medical history is difficult to discern as the patient is not able to provide much detail. The patient's home situation is not ideal and she lacks social support. The patient was previously being followed by pain management and it is unclear whether she still has access to any opiates or Ativan. There is some concern that she may have been confused regarding the medications that she was truly ingesting leading to the unintentional overdose. Plan to continue current supportive measures. While the patient remains bradycardic, she is otherwise hemodynamically stable. Atropine can be utilized if needed. 2. Encephalopathy with new onset seizure activity Initially felt to be metabolic in etiology. However, the patient did go on to develop generalized tonic-clonic seizures and was started on Keppra. EEG is currently pending. Recommend follow-up neurology consultation once completed. Maintain seizure precautions. 3. History of hypothyroidism/hypertension/anemia/questionable COPD Complicates care, management, recovery and prognosis. Continue home medications as indicated. Physical therapy to work with the patient. Case management/social work to assist with disposition needs and home situation. This note was generated with [employer] dictation software. It may contain incorrect words, spelling, and punctuation that were not noted in checking the note before signing. Subjective Subjective The patient was seen and examined at the bedside this morning. Events from the last 24 hours have been reviewed. The patient is currently afebrile, hemodynamically stable and maintaining appropriate oxygen saturations on 2 L/min via nasal cannula. While the patient had been bradycardic throughout most of the day yesterday, she acutely developed SVT last night. Upon nursing staff entering the room, the patient was noted to be nonresponsive with agonal breathing. A rapid response was subsequently called. The patient was taken for a stat CT head. During the imaging study, the patient apparently developed generalized tonic-clonic seizures. She was then loaded with Keppra. CT head along with CTA head/neck was unremarkable. An EEG has already been ordered for this morning. Objective Data Objective Data The patient's most recent lab work, culture data and imaging studies have all been personally reviewed. Surface echocardiogram demonstrated normal LV size and function with an ejection fraction of 65%. Right ventricular systolic pressure was estimated to be 49 mmHg. Vital Signs: Vital Signs Temp Pulse Resp BP Pulse Ox 97.6 F L 60 18 132/69 H 99 09/09/21 04:00 09/09/21 04:00 09/09/21 04:00 09/09/21 04:00 09/09/21 04:00 Oxygen Flow Rate (L/min) 2 Oxygen Delivery Method Nasal Cannula Weight: 41.5 kg Body Mass Index (BMI) 16.7 Intake & Output: Intake and Output for Last 24 Hours 09/07/21 09/08/21 09/09/21 23:59 23:59 23:59 Intake Total 1205.17 / 1205.17 2962.33 / 2962.33 100 / 100 Output Total 200 / 200 450 / 450 Balance 1005.17 / 1005.17 2512.33 / 2512.33 100 / 100 Medical Nutrition Assessment Dietitian: Malnutrition Criteria Met Start: 09/08/21 10:44 Freq: Status: Active Protocol: Document 09/08/21 10:44 AG (Rec: 09/08/21 10:45 AG [id number]) Nutrition Malnutrition Evidence of Malnutrition Exists Yes Malnutrition (severe): Chronic Evidenced By Suboptimal Energy Intake ( Severe),Physical Changes ( Severe) Clinical Problem Chronic Disease or Condition Related Malnutrition Etiology severe, chronic malnutrition related to inadequate energy intake Signs/Symptoms as evidenced by estimated PO intake meeting <75% of estimated energy needs > 3 months; severe muscle wasting/ fat loss evident in acromion, clavicles, orbital, temporal areas, severely depleted extremities w/ obvious protrusion of bone per physical exam; BMI 16.7 Status Active Problem Recommendation Dietitian Recommendations/Changes continue regular diet as tolerated and ensure enlive 120mL 4x/day; will add ensure pudding w/ dinners; soft/cut- up meats given poor dentition. Close monitoring of electrolytes given significant risk for refeeding syndrome. Lab / Micro Data Attestation: I reviewed the patient's lab results. Result Diagrams: 09/09/21 04:40 09/09/21 04:40 Labs: Laboratory Results - last 24 hr 09/08/21 03:57: POC Glucose 110 H 09/08/21 05:03: POC Glucose 112 H 09/08/21 06:12: POC Glucose 106 09/08/21 07:17: POC Glucose 97 09/08/21 07:59: POC Glucose 82 09/08/21 08:55: POC Glucose 112 H 09/08/21 09:53: POC Glucose 110 H 09/08/21 10:59: POC Glucose 105 09/08/21 12:10: POC Glucose 106 09/08/21 17:48: POC Glucose 81 09/08/21 22:51: POC Glucose 97 09/09/21 04:40: WBC 8.4, RBC 3.69 L, Hgb 10.5 L, Hct 33.1 L, MCV 89.7, MCH 28.5, MCHC 31.7 L, RDW Std Deviation 53.1 H, RDW Coeff of María 16.1 H, Plt Count 334, MPV 9.3, Immature Gran % (Auto) 0.500, Neut % (Auto) 72.4 H, Lymph % (Auto) 15.9 L, [place] % (Auto) 9.6, Eos % (Auto) 0.6, Baso % (Auto) 1.0, Absolute Neuts (auto) 6.1, Absolute Lymphs (auto) 1.34, Nucleated RBC % 0 09/09/21 04:40: Sodium 136, Potassium 4.0, Chloride 99, Carbon Dioxide 35.0 H, Anion Gap 2 L, BUN 24 H, Creatinine 0.79, Estim Creat Clear Calc 29.40, Est GFR (MDRD) Af Amer 90, Est GFR (MDRD) Non-Af 74, BUN/Creatinine Ratio 30.3 H, Glucose 96, Calcium 8.7, Total Bilirubin 0.20, AST 18, ALT 17, Alkaline Phosphatase 142 H, Total Protein 5.5 L, Albumin 2.6 L, Globulin 2.9, Albumin/Globulin Ratio 0.9 Radiography Diagnostic Testing: Radiology Impression Echocardiogram 09/07/21 17:26 Interpretation Summary Left ventricular systolic function is normal. The estimated ejection fraction is 65 %. Apical false tendon noted. The left atrium is mildly enlarged. There is mild mitral annular calcification. Tension of the mitral annular calcification onto the base of the posterior mitral valve leaflet. Mild (1+) mitral valve insufficiency. Mild tricuspid valve insufficiency. The aortic valve leaflets are not well visualized, however, based upon the 2D echocardiographic images obtained there appears to be moderate focal thickening and calcification and partial restriction. Right ventricular systolic pressure estimated to be 49 mmHg c/w pulmonary hypertension. Transmitral diastolic flow velocities suggest diastolic dysfunction (pseudonormal pattern). Ordering Physician: Carlie Granados Referring Physician: Duncan Boateng Performed By: Saida King RDCS Brain CT 09/08/21 23:44 IMPRESSION: Normal CT brain without contrast. Electronically Signed: Get Newton MD at 0:10 EDT , ADDENDUM: 09/09/21 0020 IMPRESSION: Normal CT brain without contrast. N.B. : The above Results were Read Back by Get Newton MD to Dr. Ana MD, and understanding confirmed on 09/09/2021 00:13:24 (ET). Electronically Signed: Get Newton MD at 0:10 EDT , Head/Neck CTA 09/09/21 00:21 IMPRESSION: Normal CTA Head and neck with contrast. N.B. : The above Results were Read Back by Get Newton MD to Dr Ana MD, and understanding confirmed on 09/09/2021 00:57:09 (ET). Electronically Signed: Get Newton MD at 0:58 EDT , Physical Exam Const alert and no apparent distress Orientation / Consciousness: confused and disoriented Nutritional Appearance: thin HEENT normocephalic and head/scalp atraumatic Eyes PERRL, EOMs intact bilaterally and conjunctivae normal Neck supple General: trachea midline Chest inspection of chest normal Resp Auscultation: Negative for rales, rhonchi or wheezes Cardio S1 normal heart sound and S2 normal heart sound Rate: bradycardia GI normal to inspection, nondistended, normoactive bowel sounds Extremity no clubbing, cyanosis or edema Skin no rashes or lesions noted Neuro moves all extremities and no focal motor deficits Psych Activity / Motor Behavior: restless Charges/Coding Visit Charges Inpatient E&M: 22076 Subs Hosp L3
--- NOTE | 2021-09-09 06:48 | TELEMED_ITS ---
[facility] Telemed has confirmed receipt of a request for visit. This document confirms receipt of the order initiating the consult. To find the results of the consultation, please view the patient's reports for the scanned Telemed Consult.
--- NOTE | 2021-09-09 07:08 | PN.HOSP_ITS ---
Subjective Subjective Overnight events noted and discussed with the nighttime hospitalist. Patient had tachycardia most likely SVT although she was admitted for bradycardia glucitol inessa and multiple other medication overdose. Patient suddenly became unresponsive did not respond with painful stimuli. Negative stroke scale was noted centrally stroke alert was called. Patient had a stat CT head and [facility] neurologist was called. Subsequently patient had CTA head and neck which reported normal. Neurologist did not recommend tPA. Subsequently patient had tonic-clonic seizure lasted for a minute or 2. She was loaded with IV Kepp ra. It is also difficult to get history from the patient because of her anxiety, panic attack and forgetfulness exacerbated after COVID in March last year. Objective Data Objective Data Vital Signs: Vital Signs Temp Pulse Resp BP Pulse Ox 97.6 F L 59 L 26 H 167/90 H 97 09/09/21 04:00 09/09/21 07:00 09/09/21 07:00 09/09/21 07:00 09/09/21 06:00 Oxygen Flow Rate (L/min) 2 Oxygen Delivery Method Nasal Cannula Weight: 91 lb 7.869 oz Body Mass Index (BMI) 16.7 Intake & Output: Intake and Output for Last 24 Hours 09/07/21 09/08/21 09/09/21 23:59 23:59 23:59 Intake Total 1205.17 / 1205.17 2962.33 / 2962.33 100 / 100 Output Total 200 / 200 450 / 450 800 / 800 Balance 1005.17 / 1005.17 2512.33 / 2512.33 -700 / -700 Medical Nutrition Assessment Dietitian: Malnutrition Criteria Met Start: 09/08/21 10:44 Freq: Status: Active Protocol: Document 09/08/21 10:44 AG (Rec: 09/08/21 10:45 [id number]) Nutrition Malnutrition Evidence of Malnutrition Exists Yes Malnutrition (severe): Chronic Evidenced By Suboptimal Energy Intake ( Severe),Physical Changes ( Severe) Clinical Problem Chronic Disease or Condition Related Malnutrition Etiology severe, chronic malnutrition related to inadequate energy intake Signs/Symptoms as evidenced by estimated PO intake meeting <75% of estimated energy needs > 3 months; severe muscle wasting/ fat loss evident in acromion, clavicles, orbital, temporal areas, severely depleted extremities w/ obvious protrusion of bone per physical exam; BMI 16.7 Status Active Problem Recommendation Dietitian Recommendations/Changes continue regular diet as tolerated and ensure enlive 120mL 4x/day; will add ensure pudding w/ dinners; soft/cut- up meats given poor dentition. Close monitoring of electrolytes given significant risk for refeeding syndrome. Lab / Micro Data Result Diagrams: 09/09/21 04:40 09/09/21 04:40 Labs: Laboratory Results - last 24 hr 09/08/21 03:57: POC Glucose 110 H 09/08/21 05:03: POC Glucose 112 H 09/08/21 06:12: POC Glucose 106 09/08/21 07:17: POC Glucose 97 09/08/21 07:59: POC Glucose 82 09/08/21 08:55: POC Glucose 112 H 09/08/21 09:53: POC Glucose 110 H 09/08/21 10:59: POC Glucose 105 09/08/21 12:10: POC Glucose 106 09/08/21 17:48: POC Glucose 81 09/08/21 22:51: POC Glucose 97 09/09/21 04:40: WBC 8.4, RBC 3.69 L, Hgb 10.5 L, Hct 33.1 L, MCV 89.7, MCH 28.5, MCHC 31.7 L, RDW Std Deviation 53.1 H, RDW Coeff of María 16.1 H, Plt Count 334, MPV 9.3, Immature Gran % (Auto) 0.500, Neut % (Auto) 72.4 H, Lymph % (Auto) 15.9 L, [place] % (Auto) 9.6, Eos % (Auto) 0.6, Baso % (Auto) 1.0, Absolute Neuts (auto) 6.1, Absolute Lymphs (auto) 1.34, Nucleated RBC % 0 09/09/21 04:40: Sodium 136, Potassium 4.0, Chloride 99, Carbon Dioxide 35.0 H, Anion Gap 2 L, BUN 24 H, Creatinine 0.79, Estim Creat Clear Calc 29.40, Est GFR (MDRD) Af Amer 90, Est GFR (MDRD) Non-Af 74, BUN/Creatinine Ratio 30.3 H, Glucose 96, Calcium 8.7, Total Bilirubin 0.20, AST 18, ALT 17, Alkaline Phosphatase 142 H, Total Protein 5.5 L, Albumin 2.6 L, Globulin 2.9, Albumin/Globulin Ratio 0.9 Radiography Diagnostic Testing: Radiology Impression Echocardiogram 09/07/21 17:26 Interpretation Summary Left ventricular systolic function is normal. The estimated ejection fraction is 65 %. Apical false tendon noted. The left atrium is mildly enlarged. There is mild mitral annular calcification. Tension of the mitral annular calcification onto the base of the posterior mitral valve leaflet. Mild (1+) mitral valve insufficiency. Mild tricuspid valve insufficiency. The aortic valve leaflets are not well visualized, however, based upon the 2D echocardiographic images obtained there appears to be moderate focal thickening and calcification and partial restriction. Right ventricular systolic pressure estimated to be 49 mmHg c/w pulmonary hypertension. Transmitral diastolic flow velocities suggest diastolic dysfunction (pseudonormal pattern). Ordering Physician: Carlie Granados Referring Physician: Duncan Boateng Performed By: Saida King RDCS Brain CT 09/08/21 23:44 IMPRESSION: Normal CT brain without contrast. Electronically Signed: Get Newton MD at 0:10 EDT , ADDENDUM: 09/09/21 0020 IMPRESSION: Normal CT brain without contrast. N.B. : The above Results were Read Back by Get Newton MD to Dr. Ana MD, and understanding confirmed on 09/09/2021 00:13:24 (ET). Electronically Signed: Get Newton MD at 0:10 EDT , Head/Neck CTA 09/09/21 00:21 IMPRESSION: Normal CTA Head and neck with contrast. N.B. : The above Results were Read Back by Get Newton MD to Dr Ana MD, and understanding confirmed on 09/09/2021 00:57:09 (ET). Electronically Signed: Get Newton MD at 0:58 EDT , Physical Exam Narrative Physical exam On review of playground monitor shows patient had for sinus tachycardia and then PSVT about 1230 hrs. on 09/09. Currently she is in normal sinus rhythm General: Alert, Oriented x3, Cooperative, HEENT: Atraumatic, PERRLA, EOMI, Normocephalic Oral: No Gingival or Mucosal Lesions/ Ulcerations Neck: Supple, No JVD, Negative Carotid Bruits Lungs: Air entry diminished in bilateral lung bases. No crepitation/rhonchi Cardiovascular: Sinus bradycardia, heart rate in low 50s, Normal S1, Normal S2, No murmurs Abdomen: Bowel Sounds Present, Soft, Non Tender, Non-Distended : No renal angle tenderness. No suprapubic tenderness. Extremities: No edema, Capillary Refill Less than 3 Seconds Skin: No rashes, No breakdown Musculoskeletal: Left hip is posteriorly dislocated. Left limb shortening about 6 inches. ROM limited on left hip. No Tenderness to Palpation of Joints or Extremities Neurological: Cranial nerves II-XII grossly intact, DTR 2+/4 and Symmetrical, Neuro grossly intact Psych/Mental Status: Anxious tach, anxiety and depression Assessment & Plan Assessment/Plan (1) Beta inessa toxicity: (2) Bradycardia, sinus: PLAN: The patient is an 81 y/o F is being admitted in ICU with altered mental status, confusion, hallucination for last several days. 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 She took unknown quantity of potentially at least half her doses of metoprolol, lisinopril and potentially Plavix. As per EMS note, she also took Ativan. As per family, her last normal self was , 4 days ago. 1. Acute toxic encephalopathy due to multiple medications, predominantly beta- inessa overdose, PUSHPA inhibitor, Plavix and Ativan: Patient was found significant bradycardic; heart rate 44/min, hypertensive BP 201/97 and hypoglycemic, fingerstick glucose 45. BMP glucose was 95. Lactic acid 0.8. TSH 9.23. UA negative. SG 1.010. Patient was given glucagon and calcium gluconate in ED. Patient further admitted in ICU dub room engineer consulted. Patient will need mental crisis team once she is medically cleared New onset seizure activity, tonic-clonic seizure: EEG ordered. Patient not good candidate for MRI. She has left hip implant and history of severe claustrophobia and requires open MRI and very high risk of unresponsiveness/adverse effect with IV Ativan which I think she will require high-dose. It is hard to get history from her regarding history of seizure or stroke but as per the daughter she had a stroke in the past. The patient was loaded with Keppra. Continue Keppra. We will do SOC neurology consult once EEG done. 2. History of left Hip fracture with history of mechanical fall, failure to thrive: X-ray of left hip as mentioned above. Patient is to follow swelling and management. 3. Severe protein calorie malnutrition: Evidenced by significantly reduced BMI, obvious muscle and fat loss, nutrition consulted. 4. Hypertensive urgency: Blood pressure was controlled. Most recent 146/71. Continue to hold beta-inessa and lisinopril. 5. Hypothyroidism with with incidental high TSH: TSH 9.23, free T4 normal. Free T3 1.4, low. Difficult infiltrate in view of overdose but seem patient is hypothyroidism, probably not adherent to levothyroxine medications 6. Anemia of chronic anemia/iron deficiency anemia: Admission hemoglobin 12, baseline 11-12. 7. 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 8 DVT prophylaxis: SCDs, Lovenox. CODE status: Full code Charges/Coding Visit Charges Inpatient E&M: 50581 Subs Hosp L3
--- NOTE | 2021-09-09 08:00 | NURSING ---
pt states she took all the medicine, couldn't stand it any more, mis was going to kill Toby over the money, I can't live w/out toby, I didn't want to be in this world w/out toby This RN reassured pt she was in a safe place.
[2021-09-09] MEDS: Enoxaparin 40 MG/0.4 ML Syringe SC (10:30)
[2021-09-09] MEDS: Ferrous Sulfate 325 MG Tablet PO (12:25)
[2021-09-09 13:30] LABS: Bedside Glucose 97 mg/dL (74-106)
--- NOTE | 2021-09-09 13:37 | CASEMGMT ---
MARIA INES called Devon at [facility]. Devon has not been able to meet patient. She went out to the home 3 times. The first time patient's son said patient was sleeping. The last two times there was no answer. Devon said that Jamari Mi's girlfriend that was helping care for patient was arrested. MARIA INES updated Devon on the latest with patient. Devon asked that MARIA INES keep her updated. Dixie Del Angel BOTTOM IRONER JAREN
--- NOTE | 2021-09-09 15:04 | CASEMGMT ---
Per Dr. Hyman, Crisis to be consulted for ptYoan Amor, PCU charge, aware. Beba ALBARADO CM
[2021-09-09 17:55] LABS: Bedside Glucose 87 mg/dL (74-106)
[2021-09-09 19:58] LABS: Hemoglobin A1c 5.7 % (3.8-5.6)
[2021-09-09 20:05] LABS: Cholesterol 157 mg/dL (200); High Density Lipoprotein 50 mg/dL; Triglycerides 93 mg/dL; Very Low Density Lipoprotein 19 mg/dL (5-40)
[2021-09-09] MEDS: QUEtiapine 25 MG Tablet 50 MG PO (23:54)
[2021-09-10] VITALS (11 sets, daily range): BP systolic 119–176; BP diastolic 64–101; PULSE 71–97; RESP 16–18; TEMP 36.4–37.2; O2SAT 94–99
[2021-09-10 00:35] LABS: Bedside Glucose 71 mg/dL (74-106)
[2021-09-10] MEDS: hydrALAZINE 20 MG/ML Vial 10 MG IV (03:18)
[2021-09-10] MEDS: 0.9% Saline Lock 10 ML Syringe IV ×3 (03:21→16:08)
[2021-09-10 06:06] LABS: Bedside Glucose 93 mg/dL (74-106)
--- NOTE | 2021-09-10 06:48 | PN.CC_ITS ---
Assessment & Plan Assessment/Plan (1) Beta inessa toxicity: PLAN: RECOMMENDATIONS: 1. Dietary advancement as tolerated. 2. Continue appropriate DVT prophylaxis. 3. As needed bronchodilator therapy. 4. Encourage incentive spirometer use and mobilize patient as tolerated. 5. Will sign off from a critical care perspective. Please call with any additional questions. IMPRESSIONS: 1. Suspected unintentional overdose of beta-inessa The patient's medical history is difficult to discern as the patient is not able to provide much detail. The patient's home situation is not ideal and she lacks social support. The patient was previously being followed by pain management and it is unclear whether she still has access to any opiates or Ativan. There is some concern that she may have been confused regarding the medications that she was truly ingesting leading to the unintentional overdose. Plan to continue current supportive measures. 2. Encephalopathy with new onset seizure activity Initially felt to be metabolic in etiology. However, the patient did go on to develop generalized tonic-clonic seizures and was started on Keppra. EEG demonstrated no epileptiform activity. The patient was evaluated by neurology with concerns that the patient may have experienced a withdrawal seizure from At noe. 3. History of hypothyroidism/hypertension/anemia/questionable COPD Complicates care, management, recovery and prognosis. Continue home medications as indicated. Physical therapy to work with the patient. Case management/social work to assist with disposition needs and home situation. This note was generated with [employer] dictation software. It may contain incorrect words, spelling, and punctuation that were not noted in checking the note before signing. Subjective Subjective The patient was seen and examined at the bedside this morning. Events from the last 24 hours have been reviewed. The patient is currently afebrile, hemodynamically stable and maintaining appropriate oxygen saturations on 2 L/min via nasal cannula. EEG completed yesterday did not reveal epileptiform acti vity. Objective Data Objective Data The patient's most recent lab work, culture data and imaging studies have all been personally reviewed. Surface echocardiogram demonstrated normal LV size and function with an ejection fraction of 65%. Right ventricular systolic pressure was estimated to be 49 mmHg. Vital Signs: Vital Signs Temp Pulse Resp BP Pulse Ox 97.9 F 86 18 176/101 H 97 09/10/21 03:05 09/10/21 03:18 09/10/21 03:05 09/10/21 03:18 09/10/21 03:05 Oxygen Flow Rate (L/min) 2 Oxygen Delivery Method Nasal Cannula Weight: 40.8 kg Body Mass Index (BMI) 16.7 Intake & Output: Intake and Output for Last 24 Hours 09/08/21 09/09/21 09/10/21 23:59 23:59 23:59 Intake Total 2962.33 / 2962.33 720 / 720 0 / 0 Output Total 450 / 450 1275 / 1275 Balance 2512.33 / 2512.33 -555 / -555 0 / 0 Medical Nutrition Assessment Dietitian: Malnutrition Criteria Met Start: 09/08/21 10:44 Freq: Status: Active Protocol: Document 09/09/21 10:09 (Rec: 09/09/21 12:10 [id number]) Nutrition Malnutrition Evidence of Malnutrition Exists Yes Malnutrition (severe): Chronic Evidenced By Suboptimal Energy Intake ( Severe),Physical Changes ( Severe) Clinical Problem Chronic Disease or Condition Related Malnutrition Etiology severe, chronic malnutrition related to inadequate energy intake Signs/Symptoms as evidenced by estimated PO intake meeting <75% of estimated energy needs > 3 months; severe muscle wasting/ fat loss evident in acromion, clavicles, orbital, temporal areas, severely depleted extremities w/ obvious protrusion of bone per physical exam; BMI 16.7 Status Active Problem Recommendation Dietitian Recommendations/Changes continue regular diet as tolerated and ensure enlive 120mL 4x/day; ensure pudding w / dinners; soft/cut-up meats given poor dentition. Close monitoring of electrolytes given significant risk for refeeding syndrome. Lab / Micro Data Attestation: I reviewed the patient's lab results. Result Diagrams: 09/09/21 04:40 09/09/21 04:40 Labs: Laboratory Results - last 24 hr 09/09/21 04:40: Triglycerides 93, Cholesterol 157, LDL Cholesterol 88, VLDL Cholesterol 19, HDL Cholesterol 50, Folate 12.10 09/09/21 04:40: Hemoglobin A1c 5.7 H 09/09/21 13:25: POC Glucose 97 09/09/21 17:36: POC Glucose 87 09/10/21 00:27: POC Glucose 71 L 09/10/21 05:29: POC Glucose 93 Micro: Microbiology 09/09/21 21:57 Nasal Secretion SARS-CoV-2 Antigen (Rapid) - Final Physical Exam Const alert and no apparent distress Orientation / Consciousness: confused and disoriented Nutritional Appearance: thin HEENT normocephalic and head/scalp atraumatic Eyes PERRL, EOMs intact bilaterally and conjunctivae normal Neck supple General: trachea midline Chest inspection of chest normal Resp Auscultation: Negative for rales, rhonchi or wheezes Cardio regular rate, regular rhythm, S1 normal heart sound and S2 normal heart sound GI normal to inspection, nondistended, normoactive bowel sounds Extremity no clubbing, cyanosis or edema Skin no rashes or lesions noted Neuro moves all extremities and no focal motor deficits Psych Activity / Motor Behavior: restless Charges/Coding Visit Charges Inpatient E&M: 62074 Subs Hosp L2
--- NOTE | 2021-09-10 08:02 | PCM.DC ---
Discharge Instructions Follow Up Care Test Results: Test results from this visit will be discussed in further detail at your follow-up appointment, if applicable. Discharge Plan Admission Admit Date/Time: 09/07/21 15:06 Attending Provider: Gary Hyman Primary Care Provider: Duncan Boateng Consulting Providers: Carlie Granados ; Ian Iyer Discharge Orders/Prescriptions Prescriptions: No Action levothyroxine 75 mcg Tablet 75 mcg PO DAILY RF: 0 metoprolol succinate 50 mg Tablet Extended Release 24 Hr 50 mg PO DAILY RF: 0 lisinopril 20 mg Tablet 20 mg PO DAILY RF: 0 montelukast [Singulair] 10 mg Tablet 10 mg PO QPM RF: 0 clopidogrel 75 mg Tablet 75 mg PO DAILY RF: 0 ferrous sulfate [FeroSul] 325 mg (65 mg iron) Tablet 325 mg PO DAILY RF: 0 Referrals / Follow Up: Duncan Boateng MD [Primary Care Provider] -
[2021-09-10] MEDS: LORazepam 2 MG/ML Syringe 1 MG IV (08:19)
[2021-09-10 08:32] LABS: Vitamin B12 356 pg/mL (211-911)
[2021-09-10] MEDS: LORazepam 1 MG Tablet PO ×2 (09:12→21:08)
--- NOTE | 2021-09-10 10:18 | CASEMGMT ---
This RN CM received message from Rich at [facility] and they state they are unable to take pt back at this time. Crisis did eval pt and are working on psych placement. CM to follow. Beba ALBARADO CM
[2021-09-10] MEDS: Enoxaparin 40 MG/0.4 ML Syringe SC (11:44)
--- NOTE | 2021-09-10 13:11 | CASEMGMT ---
MARIA INES called [facility] and spoke with Selma regarding patient. Selma is working on placement for patient. She is waiting on a facility to get back to her. MARIA INES thanked her for the information. Dixie EASTMAN
--- NOTE | 2021-09-10 14:37 | PN.HOSP_ITS ---
Subjective Subjective Patient is still very anxious and restless. Talking incoherent. Objective Data Objective Data Vital Signs: Vital Signs Temp Pulse Resp BP Pulse Ox 97.6 F L 75 16 123/71 H 94 09/10/21 09:21 09/10/21 09:58 09/10/21 09:21 09/10/21 09:21 09/10/21 09:21 Oxygen Flow Rate (L/min) 2 Oxygen Delivery Method Room Air Weight: 89 lb 15.178 oz Body Mass Index (BMI) 16.7 Intake & Output: Intake and Output for Last 24 Hours 09/08/21 09/09/21 09/10/21 23:59 23:59 23:59 Intake Total 2962.33 / 2962.33 720 / 720 225 / 225 Output Total 450 / 450 1275 / 1275 Balance 2512.33 / 2512.33 -555 / -555 225 / 225 Medical Nutrition Assessment Dietitian: Malnutrition Criteria Met Start: 09/08/21 10:44 Freq: Status: Active Protocol: Document 09/09/21 10:09 (Rec: 09/09/21 12:10 [id number]) Nutrition Malnutrition Evidence of Malnutrition Exists Yes Malnutrition (severe): Chronic Evidenced By Suboptimal Energy Intake ( Severe),Physical Changes ( Severe) Clinical Problem Chronic Disease or Condition Related Malnutrition Etiology severe, chronic malnutrition related to inadequate energy intake Signs/Symptoms as evidenced by estimated PO intake meeting <75% of estimated energy needs > 3 months; severe muscle wasting/ fat loss evident in acromion, clavicles, orbital, temporal areas, severely depleted extremities w/ obvious protrusion of bone per physical exam; BMI 16.7 Status Active Problem Recommendation Dietitian Recommendations/Changes continue regular diet as tolerated and ensure enlive 120mL 4x/day; ensure pudding w / dinners; soft/cut-up meats given poor dentition. Close monitoring of electrolytes given significant risk for refeeding syndrome. Lab / Micro Data Result Diagrams: 09/09/21 04:40 09/09/21 04:40 Labs: Laboratory Results - last 24 hr 09/09/21 04:40: Triglycerides 93, Cholesterol 157, LDL Cholesterol 88, VLDL Cholesterol 19, HDL Cholesterol 50, Folate 12.10 09/09/21 04:40: Hemoglobin A1c 5.7 H 09/09/21 17:36: POC Glucose 87 09/10/21 00:27: POC Glucose 71 L 09/10/21 05:29: POC Glucose 93 09/10/21 07:15: Vitamin B12 356 Micro: Microbiology 09/09/21 21:57 Nasal Secretion SARS-CoV-2 Antigen (Rapid) - Final Physical Exam Narrative Physical exam Currently she is in normal sinus rhythm. No overnight seizure. General: Alert, Oriented x3, Cooperative, HEENT: Atraumatic, PERRLA, EOMI, Normocephalic Oral: No Gingival or Mucosal Lesions/ Ulcerations Neck: Supple, No JVD, Negative Carotid Bruits Lungs: Air entry diminished in bilateral lung bases. No crepitation/rhonchi Cardiovascular: Sinus bradycardia, heart rate in low 50s, Normal S1, Normal S2, No murmurs Abdomen: Bowel Sounds Present, Soft, Non Tender, Non-Distended : No renal angle tenderness. No suprapubic tenderness. Extremities: No edema, Capillary Refill Less than 3 Seconds Skin: No rashes, No breakdown Musculoskeletal: Left hip is posteriorly dislocated. Left limb shortening about 6 inches. ROM limited on left hip. No Tenderness to Palpation of Joints or Extremities Neurological: Talking incoherent, DTR 2+/4 and Symmetrical, Neuro grossly intact Psych/Mental Status: Anxious tach, anxiety and depression Assessment & Plan Assessment/Plan (1) Beta inessa toxicity: (2) Bradycardia, sinus: PLAN: The patient is an 81 y/o F is being admitted in ICU with altered mental status, confusion, hallucination for last several days. 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 She took unknown quantity of potentially at least half her doses of metoprolol, lisinopril and potentially Plavix. As per EMS note, she also took Ativan. As per family, her last normal self was , 4 days ago. 1. Acute toxic encephalopathy due to multiple medications, predominantly beta- inessa overdose, PUSHPA inhibitor, Plavix and Ativan: Patient was found significant bradycardic; heart rate 44/min, hypertensive BP 201/97 and hypoglycemic, fingerstick glucose 45. BMP glucose was 95. Lactic acid 0.8. TSH 9.23. UA negative. SG 1.010. Patient was given glucagon and calcium gluconate in ED. Patient further admitted in ICU dry press operator helper consulted. Patient will need mental crisis team once she is medically cleared New onset seizure activity, tonic-clonic seizure: EEG ordered. Patient not good candidate for MRI. She has left hip implant and history of severe claustrophobia and requires open MRI and very high risk of unresponsiveness/adverse effect with IV Ativan which I think she will require high-dose. It is hard to get history from her regarding history of seizure or stroke but as per the daughter she had a stroke in the past. The patient was loaded with Keppra. Continue Keppra. We will do SOC neurology consult once EEG done. 09/10: I talked to the SOC neurologist on 09/10 evening. Overall OPN about new onset seizure probably benzodiazepine withdrawal seizure as patient was on lorazepam 2 mg 3 times daily. Lorazepam 1 mg IV given and started on tapering dose of lorazepam oral 1 mg twice daily on tapering schedule. Patient has sitter. Crisis management call. Patient will need inpatient psych facility. B12 356, folate normal. Lipid profile in normal limit. EEG did not show epileptiform activity or background slowing. Patient on low-dose baby aspirin daily for history of a stroke. Thiamine 100 mg daily. 2. History of left Hip fracture with history of mechanical fall, failure to thrive: X-ray of left hip as mentioned above. Patient is to follow swelling and management. 3. Severe protein calorie malnutrition: Evidenced by significantly reduced BMI, obvious muscle and fat loss, nutrition consulted. 4. Hypertensive urgency: Blood pressure was controlled. Most recent 146/71. Continue to hold beta-inessa and lisinopril. 5. Hypothyroidism with with incidental high TSH: TSH 9.23, free T4 normal. Free T3 1.4, low. Difficult infiltrate in view of overdose but seem patient is hypothyroidism, probably not adherent to levothyroxine medications 6. Anemia of chronic anemia/iron deficiency anemia: Admission hemoglobin 12, baseline 11-12. 7. 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 8 DVT prophylaxis: SCDs, Lovenox. CODE status: Full code Discharge plan: Inpatient psych facility. Discussed with manager case management/social and political studies professor. Charges/Coding Visit Charges Inpatient E&M: 17456 Subs Hosp L2
[2021-09-10 16:13] LABS: Amphetamine Urine VISTA NEGATIVE (<1000 ng/mL); Barbiturate Urine VISTA NEGATIVE (< 200 ng/mL); Benzodiazepine Urine VISTA NEGATIVE (< 200 ng/mL); Cocaine Urine VISTA NEGATIVE (< 300 ng/mL); Ecstacy Urine VISTA NEGATIVE (< 500 ng/mL); Methadone Urine VISTA NEGATIVE (< 300 ng/mL); PCP Urine VISTA NEGATIVE (< 25 ng/mL); THC Urine VISTA NEGATIVE (< 50 ng/mL); Vista UDS pH Range 7
[2021-09-10] MEDS: Dextrose 10%-Water 250 ML 999 ML IV (16:13)
[2021-09-10 16:16] LABS: Bedside Glucose 63 mg/dL (74-106)
--- NOTE | 2021-09-10 16:18 | NURSING ---
Selma from crisis called to provide update that a refferal is sent to [facility]. [facility] is requesting tox screen and pink slip. Will send to the fax number provided. [phone]
[2021-09-10] MEDS: Ferrous Sulfate 325 MG Tablet PO (17:53)
[2021-09-10] MEDS: Cyanocobalamin 500 MCG Tablet 1000 MCG PO (17:53)
[2021-09-10] MEDS: Aspirin E.C. 81 MG Tablet PO (17:53)
[2021-09-10] MEDS: Thiamine Hydrochloride 100 MG Tablet PO (17:53)
[2021-09-10 18:20] LABS: Bedside Glucose 52 mg/dL (74-106)
[2021-09-10 18:20] LABS: Bedside Glucose 94 mg/dL (74-106)
--- NOTE | 2021-09-10 19:43 | NURSING ---
Karen from crisis called to update us that [facility] denied patient without citing rationale. Karen stated this was her last option and recommended SNF placement. Princess with MARIA INES updated.
[2021-09-10 19:51] LABS: Glucose 125 mg/dL (74-106)
[2021-09-10 20:21] LABS: Bedside Glucose 130 mg/dL (74-106)
[2021-09-10] MEDS: Acetaminophen 325 MG Tablet 650 MG PO (21:08)
[2021-09-10] MEDS: QUEtiapine 25 MG Tablet 50 MG PO (21:08)
[2021-09-10 23:55] LABS: Bedside Glucose 101 mg/dL (74-106)
[2021-09-11] VITALS (9 sets, daily range): BP systolic 124–149; BP diastolic 68–93; PULSE 70–125; RESP 14–18; TEMP 36.6–37.1; O2SAT 92–97
[2021-09-11] MEDS: Levothyroxine 75 MCG Tablet PO (05:39)
[2021-09-11 05:51] LABS: Bedside Glucose 100 mg/dL (74-106)
[2021-09-11] MEDS: Cyanocobalamin 500 MCG Tablet 1000 MCG PO (07:58)
[2021-09-11] MEDS: Aspirin E.C. 81 MG Tablet PO (07:58)
[2021-09-11] MEDS: Thiamine Hydrochloride 100 MG Tablet PO (07:58)
[2021-09-11] MEDS: LORazepam 1 MG Tablet PO ×2 (08:01→22:08)
[2021-09-11] MEDS: 0.9% Saline Lock 10 ML Syringe IV ×2 (09:45→22:09)
[2021-09-11] MEDS: Enoxaparin 40 MG/0.4 ML Syringe SC (09:45)
--- NOTE | 2021-09-11 10:06 | CASEMGMT ---
SW was informed crisis could not find Psych placement for patient and that she needs a long term. MARIA INES called crisis and left a message for Selma requesting a return call regarding which facilities were tried. Await return call. Dixie Del Angel SHARE HOLDER JAREN
[2021-09-11] MEDS: Ferrous Sulfate 325 MG Tablet PO (11:15)
--- NOTE | 2021-09-11 11:37 | CASEMGMT ---
MARIA INES called Selma at [facility]. Selma said that [facility] is open to looking at patient today. MARIA INES asked Selma if they had any of the nurses notes and she did not think they did. MARIA INES faxed yesterday's progress note and the couple of nurses notes that would be helpful. MARIA INSE also asked [facility] to please fax their notes and assessment to MARIA INES. MARIA INES gave her PCU fax number. Await response from crisis. Dixie EASTMAN
[2021-09-11 11:50] LABS: Bedside Glucose 109 mg/dL (74-106)
--- NOTE | 2021-09-11 12:52 | PN.HOSP_ITS ---
Subjective Subjective Follow-up for medication overdose with anxiety depression and suicidal intents and attempt Objective Data Objective Data Vital Signs: Vital Signs Temp Pulse Resp BP Pulse Ox 98.7 F 83 18 124/68 H 94 09/11/21 10:07 09/11/21 10:07 09/11/21 10:07 09/11/21 10:07 09/11/21 10:07 Oxygen Flow Rate (L/min) 2 Oxygen Delivery Method Room Air Weight: 86 lb 10.267 oz Body Mass Index (BMI) 16.7 Intake & Output: Intake and Output for Last 24 Hours 09/09/21 09/10/21 09/11/21 23:59 23:59 23:59 Intake Total 720 / 720 780.00 / 780.00 Output Total 1275 / 1275 Balance -555 / -555 780.00 / 780.00 Medical Nutrition Assessment Dietitian: Malnutrition Criteria Met Start: 09/08/21 10:44 Freq: Status: Active Protocol: Document 09/09/21 10:09 (Rec: 09/09/21 12:10 [id number]) Nutrition Malnutrition Evidence of Malnutrition Exists Yes Malnutrition (severe): Chronic Evidenced By Suboptimal Energy Intake ( Severe),Physical Changes ( Severe) Clinical Problem Chronic Disease or Condition Related Malnutrition Etiology severe, chronic malnutrition related to inadequate energy intake Signs/Symptoms as evidenced by estimated PO intake meeting <75% of estimated energy needs > 3 months; severe muscle wasting/ fat loss evident in acromion, clavicles, orbital, temporal areas, severely depleted extremities w/ obvious protrusion of bone per physical exam; BMI 16.7 Status Active Problem Recommendation Dietitian Recommendations/Changes continue regular diet as tolerated and ensure enlive 120mL 4x/day; ensure pudding w / dinners; soft/cut-up meats given poor dentition. Close monitoring of electrolytes given significant risk for refeeding syndrome. Lab / Micro Data Result Diagrams: 09/09/21 04:40 09/10/21 18:45 Labs: Laboratory Results - last 24 hr 09/10/21 15:26: Urine Opiates Screen NEGATIVE, Urine Methadone Screen NEGATIVE, Ur Barbiturates Screen NEGATIVE, Ur Phencyclidine Scrn NEGATIVE, Ur Amphetamines Screen NEGATIVE, MDMA (Ecstasy) Screen NEGATIVE, U Benzodiazepines Scrn NEGATIVE, Urine Cocaine Screen NEGATIVE, U Cannabinoids Screen NEGATIVE, Ur Drug Screen Comment 09/10/21 15:28: POC Glucose 63 L 09/10/21 17:29: POC Glucose 52 L 09/10/21 18:15: POC Glucose 94 09/10/21 18:45: Glucose 125 H 09/10/21 20:18: POC Glucose 130 H 09/10/21 23:47: POC Glucose 101 09/11/21 05:37: POC Glucose 100 09/11/21 11:34: POC Glucose 109 H Micro: Microbiology 09/09/21 21:57 Nasal Secretion SARS-CoV-2 Antigen (Rapid) - Final Physical Exam Narrative Physical exam Patient was pink slipped on 09/10. Still has anxiety, restlessness, incoherent, flight of ideas and disorganized behavior. Heart rate has improved in 80s General: Alert, Oriented x3, Cooperative, HEENT: Atraumatic, PERRLA, EOMI, Normocephalic Oral: No Gingival or Mucosal Lesions/ Ulcerations Neck: Supple, No JVD, Negative Carotid Bruits Lungs: Air entry diminished in bilateral lung bases. No crepitation/rhonchi Cardiovascular: Sinus rhythm, heart rate in low 50s, Normal S1, Normal S2, No murmurs Abdomen: Bowel Sounds Present, Soft, Non Tender, Non-Distended : No renal angle tenderness. No suprapubic tenderness. Extremities: No edema, Capillary Refill Less than 3 Seconds Skin: No rashes, No breakdown Musculoskeletal: Left hip is posteriorly dislocated. Left limb shortening about 6 inches. ROM limited on left hip. No Tenderness to Palpation of Joints or Extremities Neurological: Talking incoherent, DTR 2+/4 and Symmetrical, Neuro grossly intact Psych/Mental Status: Anxious tach, anxiety and depression Assessment & Plan Assessment/Plan (1) Beta inessa toxicity: (2) Bradycardia, sinus: PLAN: The patient is an 81 y/o F is being admitted in ICU with altered mental status, confusion, hallucination for last several days. She also has history of chronic left hip pain with x-ray showing posterior displacement of p rosthetic left hip joint. She took unknown quantity of potentially at least half her doses of metoprolol, lisinopril and potentially Plavix. As per EMS note, she also took Ativan. As per family, her last normal self was , 4 days ago. 1. Acute toxic encephalopathy due to multiple medications, predominantly beta- inessa overdose, PUSHPA inhibitor, Plavix and Ativan with suicidal intent and attempt: Patient was found significant bradycardic; heart rate 44/min, hypertensive BP 201/97 and hypoglycemic, fingerstick glucose 45. BMP glucose was 95. Lactic acid 0.8. TSH 9.23. UA negative. SG 1.010. Patient was given glucagon and calcium gluconate in ED. Patient further admitted in ICU smoke tester consulted. Crisis team is following the patient. Patient needs inpatient psych facility as she has suicidal attempt. Patient is pink slipped. New onset seizure activity, tonic-clonic seizure: EEG ordered. Patient not good candidate for MRI. She has left hip implant and history of severe claustrophobia and requires open MRI and very high risk of unresponsiveness/adverse effect with IV Ativan which I think she will require high-dose. It is hard to get history from her regarding history of seizure or stroke but as per the daughter she had a stroke in the past. The patient was loaded with Keppra. Continue Keppra. We will do SOC neurology consult once EEG done. 09/10: I talked to the SOC neurologist on 09/10 evening. Overall OPN about new onset seizure probably benzodiazepine withdrawal seizure as patient was on lorazepam 2 mg 3 times daily. Lorazepam 1 mg IV given and started on tapering dose of lorazepam oral 1 mg twice daily on tapering schedule. Patient has sitte r. Crisis management call. Patient will need inpatient psych facility. B12 356, folate normal. Lipid profile in normal limit. EEG did not show epileptiform activity or background slowing. Patient on low-dose baby aspirin daily for history of a stroke. Thiamine 100 mg daily. 09/11: Patient on tapering dose of lorazepam as recommended by neurologist. 2. History of left Hip fracture with history of mechanical fall, failure to thrive: X-ray of left hip as mentioned above. Patient is to follow swelling and management. 3. Severe protein calorie malnutrition: Evidenced by significantly reduced BMI, obvious muscle and fat loss, nutrition consulted. 4. Hypertensive urgency: Blood pressure was controlled. Most recent 146/71. Continue to hold beta-inessa and lisinopril. 5. Hypothyroidism with with incidental high TSH: TSH 9.23, free T4 normal. Free T3 1.4, low. Difficult infiltrate in view of overdose but seem patient is hypothyroidism, probably not adherent to levothyroxine medications 6. Anemia of chronic anemia/iron deficiency anemia: Admission hemoglobin 12, baseline 11-12. 7. 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 8. Prediabetes with episodes of hypoglycemia: On 09/10: Patient had episodes of hypoglycemia, glucose 52, 63 and was started on D10. Her glucose improved to 125 when D10 discontinued. A1c 5.7% suggestive of prediabetes. DVT prophylaxis: SCDs, Lovenox. CODE status: Full code Discharge plan: Inpatient psych facility. Discussed with piano case and bench assembler/social services specialist. Charges/Coding Visit Charges Inpatient E&M: 52519 Subs Hosp L2
[2021-09-11] MEDS: Acetaminophen 325 MG Tablet 650 MG PO (14:10)
--- NOTE | 2021-09-11 15:31 | CASEMGMT ---
MARIA INES called Selma at [facility] and asked if she has heard anything from [facility]. Selma has not so she will call and check on referral. MARIA INES updated RN and clinic charge nurse. Dixie EASTMAN
[2021-09-11 19:11] LABS: Bedside Glucose 126 mg/dL (74-106)
[2021-09-11] MEDS: QUEtiapine 25 MG Tablet 50 MG PO (22:10)
[2021-09-12] VITALS (10 sets, daily range): BP systolic 125–185; BP diastolic 70–102; PULSE 88–108; RESP 16–18; TEMP 36.6–37; O2SAT 92–95
[2021-09-12 01:11] LABS: Bedside Glucose 101 mg/dL (74-106)
[2021-09-12 06:21] LABS: Bedside Glucose 101 mg/dL (74-106)
[2021-09-12] MEDS: Levothyroxine 75 MCG Tablet PO (06:26)
[2021-09-12] MEDS: Cyanocobalamin 500 MCG Tablet 1000 MCG PO (08:31)
[2021-09-12] MEDS: Thiamine Hydrochloride 100 MG Tablet PO (08:32)
[2021-09-12] MEDS: Enoxaparin 40 MG/0.4 ML Syringe SC (08:32)
[2021-09-12] MEDS: LORazepam 1 MG Tablet PO ×2 (08:32→21:47)
[2021-09-12] MEDS: Aspirin E.C. 81 MG Tablet PO (08:32)
[2021-09-12 11:46] LABS: Bedside Glucose 94 mg/dL (74-106)
--- NOTE | 2021-09-12 12:52 | CASEMGMT ---
Social Work SW called [facility], spoke w/Selma. She states they are still waiting for a spot at [facility], but they may not have openings until Tuesday. She states they are also working on placement at [facility], and they have openings today. They need a PCR test however, and asked once it's completed for it to be faxed to [facility] at [phone]. SW let conveyor line battery charger know. SW also asked Selma to call PCU directly should she hear back from [facility] today to let the staff know if pt can go. MARY Barraza
--- NOTE | 2021-09-12 15:32 | PCM.PN.HOSP ---
Subjective Subjective Patient is on baseline mental status. No acute seizures Objective Data Objective Data Vital Signs: Vital Signs Temp Pulse Resp BP Pulse Ox 98.4 F 108 H 18 152/78 H 94 09/12/21 14:08 09/12/21 14:25 09/12/21 14:08 09/12/21 14:08 09/12/21 14:08 Oxygen Flow Rate (L/min) 2 Oxygen Delivery Method Room Air Weight: 90 lb 6.232 oz Body Mass Index (BMI) 16.7 Intake & Output: Intake and Output for Last 24 Hours 09/10/21 09/11/21 09/12/21 23:59 23:59 23:59 Intake Total 780.00 / 780.00 1030 / 1030 105 / 105 Output Total 250 / 250 200 / 200 Balance 780.00 / 780.00 780 / 780 -95 / -95 Medical Nutrition Assessment Dietitian: Malnutrition Criteria Met Start: 09/08/21 10:44 Freq: Status: Active Protocol: Document 09/09/21 10:09 (Rec: 09/09/21 12:10 [id number]) Nutrition Malnutrition Evidence of Malnutrition Exists Yes Malnutrition (severe): Chronic Evidenced By Suboptimal Energy Intake ( Severe),Physical Changes ( Severe) Clinical Problem Chronic Disease or Condition Related Malnutrition Etiology severe, chronic malnutrition related to inadequate energy intake Signs/Symptoms as evidenced by estimated PO intake meeting <75% of estimated energy needs > 3 months; severe muscle wasting/ fat loss evident in acromion, clavicles, orbital, temporal areas, severely depleted extremities w/ obvious protrusion of bone per physical exam; BMI 16.7 Status Active Problem Recommendation Dietitian Recommendations/Changes continue regular diet as tolerated and ensure enlive 120mL 4x/day; ensure pudding w / dinners; soft/cut-up meats given poor dentition. Close monitoring of electrolytes given significant risk for refeeding syndrome. Lab / Micro Data Result Diagrams: 09/09/21 04:40 09/10/21 18:45 Labs: Laboratory Results - last 24 hr 09/11/21 19:03: POC Glucose 126 H 09/12/21 01:03: POC Glucose 101 09/12/21 06:17: POC Glucose 101 09/12/21 11:40: POC Glucose 94 Micro: Microbiology 09/09/21 21:57 Nasal Secretion SARS-CoV-2 Antigen (Rapid) - Final Physical Exam Narrative Physical exam Patient was pink slipped on 09/10. Still has anxiety, restlessness, incoherent, flight of ideas and disorganized behavior. Heart rate has improved in 80s General: Alert, Oriented x3, Cooperative, HEENT: Atraumatic, PERRLA, EOMI, Normocephalic Oral: No Gingival or Mucosal Lesions/ Ulcerations Neck: Supple, No JVD, Negative Carotid Bruits Lungs: Air entry diminished in bilateral lung bases. No crepitation/rhonchi Cardiovascular: Sinus rhythm, heart rate in low 50s, Normal S1, Normal S2, No murmurs Abdomen: Bowel Sounds Present, Soft, Non Tender, Non-Distended : No renal angle tenderness. No suprapubic tenderness. Extremities: No edema, Capillary Refill Less than 3 Seconds Skin: No rashes, No breakdown Musculoskeletal: Left hip is posteriorly dislocated. Left limb shortening about 6 inches. ROM limited on left hip. No Tenderness to Palpation of Joints or Extremities Neurological: Talking incoherent, DTR 2+/4 and Symmetrical, Neuro grossly intact Psych/Mental Status: Anxiety disorder, depression. Assessment & Plan Assessment/Plan (1) Beta inessa toxicity: (2) Bradycardia, sinus: PLAN: The patient is an 81 y/o F is being admitted in ICU with altered mental status, confusion, hallucination for last several days. 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 She took unknown quantity of potentially at least half her doses of metoprolol, lisinopril and potentially Plavix. As per EMS note, she also took Ativan. As per family, her last normal self was , 4 days ago. 1. Acute toxic encephalopathy due to multiple medications, predominantly beta-inessa overdose, PUSHPA inhibitor, Plavix and Ativan with suicidal intent and attempt: Patient was found significant bradycardic; heart rate 44/min, hypertensive BP 201/97 and hypoglycemic, fingerstick glucose 45. BMP glucose was 95. Lactic acid 0.8. TSH 9.23. UA negative. SG 1.010. Patient was given glucagon and calcium gluconate in ED. Patient further admitted in ICU resource agent consulted. Crisis team is following the patient. Patient needs inpatient psych facility as she has suicidal attempt. Patient is pink slipped. 09/12: Waiting for inpatient psych facility transfer. IV Keppra changed to oral. New onset seizure activity, tonic-clonic seizure: Patient not good candidate for MRI. She has left hip implant and history of severe claustrophobia and requires open MRI and very high risk of unresponsiveness/adverse effect with IV Ativan which I think she will require high-dose. It is hard to get history from her regarding history of seizure or stroke but as per the daughter she had a stroke in the past. The patient was loaded with Keppra. Continue Keppra. We will do SOC neurology consult once EEG done. 09/10: I talked to the SOC neurologist on 09/10 evening. Overall OPN about new onset seizure probably benzodiazepine withdrawal seizure as patient was on lorazepam 2 mg 3 times daily. Lorazepam 1 mg IV given and started on tapering dose of lorazepam oral 1 mg twice daily on tapering schedule. Patient has sitter. Crisis management call. Patient will need inpatient psych facility. B12 356, folate normal. Lipid profile in normal limit. EEG did not show epileptiform activity or background slowing. Patient on low-dose baby aspirin daily for history of a stroke. Thiamine 100 mg daily. 09/11: Patient on tapering dose of lorazepam as recommended by neurologist. 2. History of left Hip fracture with history of mechanical fall, failure to thrive: X-ray of left hip as mentioned above. Patient is to follow swelling and management. 3. Severe protein calorie malnutrition: Evidenced by significantly reduced BMI, obvious muscle and fat loss, nutrition consulted. 4. Hypertensive urgency: Blood pressure was controlled. Most recent 146/71. Continue to hold beta-inessa and lisinopril. 5. Hypothyroidism with with incidental high TSH: TSH 9.23, free T4 normal. Free T3 1.4, low. Difficult infiltrate in view of overdose but seem patient is hypothyroidism, probably not adherent to levothyroxine medications 6. Anemia of chronic anemia/iron deficiency anemia: Admission hemoglobin 12, baseline 11-12. 7. 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 8. Prediabetes with episodes of hypoglycemia: On 09/10: Patient had episodes of hypoglycemia, glucose 52, 63 and was started on D10. Her glucose improved to 125 when D10 discontinued. A1c 5.7% suggestive of prediabetes. DVT prophylaxis: SCDs, Lovenox. CODE status: Full code Discharge plan: Inpatient psych facility. Discussed with casework manager/perinatal social worker. Charges/Coding Visit Charges Inpatient E&M: 43793 Subs Hosp L2
[2021-09-12 16:35] LABS: Bedside Glucose 107 mg/dL (74-106)
--- NOTE | 2021-09-12 18:15 | NURSING ---
covid test faxed to [facility]
--- NOTE | 2021-09-12 18:23 | NURSING ---
[facility] from crisis called. [facility] full. Expecting discharge on Tuesday. Still on wait list at [facility]. Does not expect to hear from either until Tuesday.
[2021-09-12] MEDS: levETIRAcetam 500 MG Tablet PO (21:47)
[2021-09-12] MEDS: QUEtiapine 25 MG Tablet 50 MG PO (21:47)
[2021-09-12 22:20] LABS: Bedside Glucose 97 mg/dL (74-106)
[2021-09-12] MEDS: MELATONIN 3 MG TABLET PO (23:16)
[2021-09-13] VITALS (8 sets, daily range): BP systolic 136–160; BP diastolic 78–99; PULSE 75–105; RESP 16–18; TEMP 36.6–37; O2SAT 92–98
[2021-09-13] MEDS: Levothyroxine 75 MCG Tablet PO (05:36)
[2021-09-13 05:46] LABS: Bedside Glucose 97 mg/dL (74-106)
--- NOTE | 2021-09-13 08:31 | PN.HOSP_ITS ---
Subjective Subjective Follow-up for drug overdose with suicidal intent. Objective Data Objective Data Vital Signs: Vital Signs Temp Pulse Resp BP Pulse Ox 97.8 F 75 18 160/84 H 94 09/13/21 03:46 09/13/21 06:47 09/13/21 03:46 09/13/21 03:46 09/13/21 03:46 Oxygen Flow Rate (L/min) 2 Oxygen Delivery Method Room Air Weight: 90 lb 6.232 oz Body Mass Index (BMI) 16.7 Intake & Output: Intake and Output for Last 24 Hours 09/11/21 09/12/21 09/13/21 23:59 23:59 23:59 Intake Total 1030 / 1030 505 / 505 240 / 240 Output Total 250 / 250 200 / 200 300 / 300 Balance 780 / 780 305 / 305 -60 / -60 Medical Nutrition Assessment Dietitian: Malnutrition Criteria Met Start: 09/08/21 10:44 Freq: Status: Active Protocol: Document 09/09/21 10:09 (Rec: 09/09/21 12:10 [id number]) Nutrition Malnutrition Evidence of Malnutrition Exists Yes Malnutrition (severe): Chronic Evidenced By Suboptimal Energy Intake ( Severe),Physical Changes ( Severe) Clinical Problem Chronic Disease or Condition Related Malnutrition Etiology severe, chronic malnutrition related to inadequate energy intake Signs/Symptoms as evidenced by estimated PO intake meeting <75% of estimated energy needs > 3 months; severe muscle wasting/ fat loss evident in acromion, clavicles, orbital, temporal areas, severely depleted extremities w/ obvious protrusion of bone per physical exam; BMI 16.7 Status Active Problem Recommendation Dietitian Recommendations/Changes continue regular diet as tolerated and ensure enlive 120mL 4x/day; ensure pudding w / dinners; soft/cut-up meats given poor dentition. Close monitoring of electrolytes given significant risk for refeeding syndrome. Lab / Micro Data Result Diagrams: 09/09/21 04:40 09/10/21 18:45 Labs: Laboratory Results - last 24 hr 09/12/21 11:40: POC Glucose 94 09/12/21 13:30: COVID-19 (DIANNA) Not Detected 09/12/21 16:28: POC Glucose 107 H 09/12/21 21:54: POC Glucose 97 09/13/21 05:39: POC Glucose 97 Micro: Microbiology 09/09/21 21:57 Nasal Secretion SARS-CoV-2 Antigen (Rapid) - Final Physical Exam Narrative Physical exam Patient was pink slipped on 09/10. Still has anxiety, restlessness, incoherent, flight of ideas and disorganized behavior. Heart rate has improved in 80s General: Alert, Oriented x3, Cooperative, HEENT: Atraumatic, PERRLA, EOMI, Normocephalic Oral: No Gingival or Mucosal Lesions/ Ulcerations Neck: Supple, No JVD, Negative Carotid Bruits Lungs: Air entry diminished in bilateral lung bases. No crepitation/rhonchi Cardiovascular: Sinus rhythm, heart rate in low 50s, Normal S1, Normal S2, No murmurs Abdomen: Bowel Sounds Present, Soft, Non Tender, Non-Distended : No renal angle tenderness. No suprapubic tenderness. Extremities: No edema, Capillary Refill Less than 3 Seconds Skin: No rashes, No breakdown Musculoskeletal: Left hip is posteriorly dislocated. Left limb shortening about 6 inches. ROM limited on left hip. No Tenderness to Palpation of Joints or Extremities Neurological: Talking incoherent, DTR 2+/4 and Symmetrical, Neuro grossly intact Psych/Mental Status: Anxiety disorder, depression. Assessment & Plan Assessment/Plan (1) Beta inessa toxicity: (2) Bradycardia, sinus: PLAN: The patient is an 81 y/o F is being admitted in ICU with altered mental status, confusion, hallucination for last several days. 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 She took unknown quantity of potentially at least half her doses of metoprolol, lisinopril and potentially Plavix. As per EMS note, she also took Ativan. As per family, her last normal self was , 4 days ago. 1. Acute toxic encephalopathy due to multiple medications, predominantly beta- inessa overdose, PUSHPA inhibitor, Plavix and Ativan with suicidal intent and attempt: Patient was found significant bradycardic; heart rate 44/min, hypertensive BP 201/97 and hypoglycemic, fingerstick glucose 45. BMP glucose was 95. Lactic acid 0.8. TSH 9.23. UA negative. SG 1.010. Patient was given glucagon and calcium gluconate in ED. Patient further admitted in ICU cashier wrapper consulted. Crisis team is following the patient. Patient needs inpatient psych facility as she has suicidal attempt. Patient is pink slipped. 09/12: Waiting for inpatient psych facility transfer. IV Keppra changed to oral. 09/13: Patient sometimes impulsive behavior restless, paranoid and fearful. Has anxiety. Symptoms patient mumbles aphasic. New onset seizure activity, tonic-clonic seizure: Patient not good candidate for MRI. She has left hip implant and history of severe claustrophobia and requires open MRI and very high risk of unresponsiveness/adverse effect with IV Ativan which I think she will require high-dose. It is hard to get history from her regarding history of seizure or stroke but as per the daughter she had a stroke in the past. The patient was loaded with Keppra. Continue Keppra. We will do SOC neurology consult once EEG done. 09/10: I talked to the SOC neurologist on 09/10 evening. Overall OPN about new onset seizure probably benzodiazepine withdrawal seizure as patient was on lorazepam 2 mg 3 times daily. Lorazepam 1 mg IV given and started on tapering dose of lorazepam oral 1 mg twice daily on tapering schedule. Patient has sitter. Crisis management call. Patient will need inpatient psych facility. B12 356, folate normal. Lipid profile in normal limit. EEG did not show epileptiform activity or background slowing. Patient on low-dose baby aspirin daily for history of a stroke. Thiamine 100 mg daily. 09/11: Patient on tapering dose of lorazepam as recommended by neurologist. 09/13: Keppra can be discontinued at the time of discharge as per neurologist recommendation. 2. History of left Hip fracture with history of mechanical fall, failure to thrive: X-ray of left hip as mentioned above. Patient is to follow swelling and management. 3. Severe protein calorie malnutrition: Evidenced by significantly reduced BMI, obvious muscle and fat loss, nutrition consulted. 4. Hypertensive urgency: Blood pressure was controlled. Most recent 146/71. Continue to hold beta-inessa and lisinopril. 5. Hypothyroidism with with incidental high TSH: TSH 9.23, free T4 normal. Free T3 1.4, low. Difficult infiltrate in view of overdose but seem patient is hypothyroidism, probably not adherent to levothyroxine medications 6. Anemia of chronic anemia/iron deficiency anemia: Admission hemoglobin 12, baseline 11-12. 7. 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 8. Prediabetes with episodes of hypoglycemia: On 09/10: Patient had episodes of hypoglycemia, glucose 52, 63 and was started on D10. Her glucose improved to 125 when D10 discontinued. A1c 5.7% suggestive of prediabetes. 9. Stage II coccyx decubitus ulcers present on admission wound nurse consulted. Nursing dressing. DVT prophylaxis: SCDs, Lovenox. CODE status: Full code Discharge plan: Inpatient psych facility. Discussed with case reviewer/forensic social worker. Charges/Coding Visit Charges Inpatient E&M: 95816 Subs Hosp L2
[2021-09-13] MEDS: Thiamine Hydrochloride 100 MG Tablet PO (08:42)
[2021-09-13] MEDS: LORazepam 1 MG Tablet PO ×2 (08:42→21:04)
[2021-09-13] MEDS: Aspirin E.C. 81 MG Tablet PO (08:42)
[2021-09-13] MEDS: levETIRAcetam 500 MG Tablet PO ×2 (08:42→21:04)
[2021-09-13] MEDS: Cyanocobalamin 500 MCG Tablet 1000 MCG PO (08:42)
[2021-09-13] MEDS: Enoxaparin 40 MG/0.4 ML Syringe SC (08:44)
[2021-09-13] MEDS: Ferrous Sulfate 325 MG Tablet PO (13:17)
[2021-09-13 13:36] LABS: Bedside Glucose 123 mg/dL (74-106)
[2021-09-13 18:06] LABS: Bedside Glucose 126 mg/dL (74-106)
[2021-09-13] MEDS: Acetaminophen 325 MG Tablet 650 MG PO (21:03)
[2021-09-13] MEDS: MELATONIN 3 MG TABLET PO (21:04)
[2021-09-13] MEDS: QUEtiapine 25 MG Tablet 50 MG PO (21:04)
[2021-09-13 23:16] LABS: Bedside Glucose 123 mg/dL (74-106)
[2021-09-14] VITALS (8 sets, daily range): BP systolic 153–170; BP diastolic 79–93; PULSE 78–98; RESP 16–18; TEMP 36.4–36.8; O2SAT 94–97
[2021-09-14] MEDS: Levothyroxine 75 MCG Tablet PO (05:34)
[2021-09-14 06:06] LABS: Bedside Glucose 90 mg/dL (74-106)
[2021-09-14] MEDS: Cyanocobalamin 500 MCG Tablet 1000 MCG PO (08:06)
[2021-09-14] MEDS: Thiamine Hydrochloride 100 MG Tablet PO (08:06)
[2021-09-14] MEDS: Aspirin E.C. 81 MG Tablet PO (08:06)
[2021-09-14] MEDS: Enoxaparin 40 MG/0.4 ML Syringe SC (09:33)
[2021-09-14] MEDS: levETIRAcetam 500 MG Tablet PO ×2 (09:33→22:06)
[2021-09-14] MEDS: LORazepam 1 MG Tablet PO ×2 (09:36→22:06)
[2021-09-14 11:55] LABS: Bedside Glucose 95 mg/dL (74-106)
[2021-09-14] MEDS: Ferrous Sulfate 325 MG Tablet PO (12:42)
--- NOTE | 2021-09-14 13:26 | PCM.PN.HOSP ---
Subjective Subjective Follow-up on drug overdose/suicidal intent: Patient was seen and examined. No acute events overnight. She denied any new complaints. Awaiting discharge to an inpatient psych facility. Objective Data Objective Data Vital Signs: Vital Signs Temp Pulse Resp BP Pulse Ox 97.6 F L 80 16 159/88 H 94 09/14/21 09:25 09/14/21 09:25 09/14/21 09:25 09/14/21 09:25 09/14/21 09:25 Oxygen Flow Rate (L/min) 2 Oxygen Delivery Method Room Air Weight: 40.5 kg Body Mass Index (BMI) 16.7 Intake & Output: Intake and Output for Last 24 Hours 09/12/21 09/13/21 09/14/21 23:59 23:59 23:59 Intake Total 505 / 505 880 / 1180 1110 / 1110 Output Total 200 / 200 300 / 450 150 / 150 Balance 305 / 305 580 / 730 960 / 960 Medical Nutrition Assessment Dietitian: Malnutrition Criteria Met Start: 09/08/21 10:44 Freq: Status: Active Protocol: Document 09/14/21 10:16 AG (Rec: 09/14/21 10:16 AG Desktop) Nutrition Malnutrition Evidence of Malnutrition Exists Yes Malnutrition (severe): Chronic Evidenced By Suboptimal Energy Intake ( Severe),Physical Changes ( Severe) Clinical Problem Chronic Disease or Condition Related Malnutrition Etiology severe, chronic malnutrition related to inadequate energy intake Signs/Symptoms as evidenced by estimated PO intake meeting <75% of estimated energy needs > 3 months; severe muscle wasting/ fat loss evident in acromion, clavicles, orbital, temporal areas, severely depleted extremities w/ obvious protrusion of bone per physical exam; BMI 16.7 Status Active Problem Recommendation Dietitian Recommendations/Changes continue regular diet as tolerated and ensure enlive 120mL 4x/day; ensure pudding w / dinners; soft/cut-up meats given poor dentition. Close monitoring of electrolytes given significant risk for refeeding syndrome. Lab / Micro Data Result Diagrams: 09/09/21 04:40 09/10/21 18:45 Labs: Laboratory Results - last 24 hr 09/13/21 13:29: POC Glucose 123 H 09/13/21 18:00: POC Glucose 126 H 09/13/21 21:13: POC Glucose 123 H 05/23/22 05:38: POC Glucose 90 09/14/21 11:41: POC Glucose 95 Micro: Microbiology 09/09/21 21:57 Nasal Secretion SARS-CoV-2 Antigen (Rapid) - Final Physical Exam Narrative Physical exam: General: Alert, Oriented x3, Cooperative, No apparent distress, appears very frail HEENT: Atraumatic Oral: Moist Mucosa Neck: Supple Lungs: Clear to auscultation Cardiovascular: HS I+II, regular, no murmurs Abdomen: Bowel Sounds Present, Soft, Non Tender Extremities: No edema Skin: No rashes, No breakdown Neurological: Grossly intact Psych/Mental Status: Appropriate Assessment & Plan Assessment/Plan (1) Beta inessa toxicity: (2) Bradycardia, sinus: PLAN: 1. Acute toxic encephalopathy due to multiple medications, predominantly beta-inessa overdose, PUSHPA inhibitor, Plavix and Ativan with suicidal intent and attempt. Patient is alert oriented x3 now. Mobile crisis consulted. Patient is pink slipped. Awaiting discharge to inpatient psych facility 2. Severe bradycardia secondary to beta-inessa overdose, resolved Status post glucagon and calcium gluconate 3. Acute seizure disorder ruled out, likely seizure-like activity secondary to benzodiazepine withdrawal seizure EEG did not show epileptiform activity Patient on tapering doses of lorazepam 4. 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 Severe protein calorie malnutrition, evidenced by significantly reduced BMI, obvious muscle and fat loss, Summer Child Caregiver consulted, continue supplements 6. Hypertensive urgency, blood pressure better controlled, Will start on lisinopril 20 mg daily Continue to hold beta-inessa 7. Hypothyroidism with incidental high TSH 9.23, free T4 and T4 is normal Patient likely not taking medications Continue on current dose of Synthroid, repeat blood work in 4 to 6 weeks 8. Prediabetes with episodes of hypoglycemia, HbA1c 5.7 We will continue to monitor 9. Stage II coccyx decubitus ulcers present on admission wound nurse consulted Continue with wound dressing 10. Rest of chronic medical conditions -history of CVA, nicotine and alcohol dependence 11. DVT prophylaxis - Lovenox SC Charges/Coding Visit Charges Inpatient E&M: 15328 Subs Hosp L2
--- NOTE | 2021-09-14 15:49 | NURSING ---
[facility] called and will have to decline admission to their hospital due to patient requiring assistance with care.
[2021-09-14 17:35] LABS: Bedside Glucose 114 mg/dL (74-106)
[2021-09-14] MEDS: QUEtiapine 25 MG Tablet 50 MG PO (22:06)
[2021-09-14 23:25] LABS: Bedside Glucose 118 mg/dL (74-106)
[2021-09-15] VITALS (9 sets, daily range): BP systolic 123–147; BP diastolic 63–80; PULSE 74–106; RESP 16–18; TEMP 36.3–36.9; O2SAT 92–97
[2021-09-15] MEDS: Levothyroxine 75 MCG Tablet PO (05:41)
[2021-09-15 06:46] LABS: Bedside Glucose 97 mg/dL (74-106)
[2021-09-15] MEDS: Cyanocobalamin 500 MCG Tablet 1000 MCG PO (08:42)
[2021-09-15] MEDS: Aspirin E.C. 81 MG Tablet PO (08:42)
[2021-09-15] MEDS: Thiamine Hydrochloride 100 MG Tablet PO (08:42)
--- NOTE | 2021-09-15 08:54 | CASEMGMT ---
MARIA INES called [facility] and spoke with [facility] who has been working on patient's psych placement. Selma said several places have declined. There are still some pending referrals. MARIA INES let [facility]ma know that patient is more independent. Yesterday with therapy she was a CG assist. [facility]ma asked if she is still a total feed. MARIA INES told [facility] MARIA INES will ask the RN. MARIA INES will fax updates. RN was not sure about patient being a total feed. Patient had a glass of water in her hand at the moment. MARIA INES faxed PT note and physician progress note to [facility]. MARIA INES did review chart further and it does not appear patient is a total feed. MARIA INES wrote this on fax face sheet. Dixie EASTMAN
[2021-09-15] MEDS: levETIRAcetam 500 MG Tablet PO ×2 (09:53→20:32)
[2021-09-15] MEDS: LORazepam 1 MG Tablet PO ×2 (09:53→20:32)
[2021-09-15] MEDS: Enoxaparin 40 MG/0.4 ML Syringe SC (09:53)
[2021-09-15] MEDS: Ferrous Sulfate 325 MG Tablet PO (12:38)
[2021-09-15 12:45] LABS: Bedside Glucose 95 mg/dL (74-106)
--- NOTE | 2021-09-15 13:45 | PCM.PN.HOSP ---
Subjective Subjective Follow-up on drug overdose/suicidal intent: Patient was seen and examined. No acute events overnight. Awaiting discharge to an inpatient psych facility. Objective Data Objective Data Vital Signs: Vital Signs Temp Pulse Resp BP Pulse Ox 97.5 F L 88 18 123/63 H 93 09/15/21 09:30 09/15/21 09:30 09/15/21 09:30 09/15/21 09:30 09/15/21 09:30 Oxygen Flow Rate (L/min) 2 Oxygen Delivery Method Room Air Weight: 39.2 kg Body Mass Index (BMI) 16.7 Intake & Output: Intake and Output for Last 24 Hours 09/13/21 09/14/21 09/15/21 23:59 23:59 23:59 Intake Total 880 / 1180 1350 / 1570 310 / 310 Output Total 300 / 450 150 / 450 750 / 750 Balance 580 / 730 1200 / 1120 -440 / -440 Medical Nutrition Assessment Dietitian: Malnutrition Criteria Met Start: 09/08/21 10:44 Freq: Status: Active Protocol: Document 09/14/21 10:16 AG (Rec: 09/14/21 10:16 AG Desktop) Nutrition Malnutrition Evidence of Malnutrition Exists Yes Malnutrition (severe): Chronic Evidenced By Suboptimal Energy Intake ( Severe),Physical Changes ( Severe) Clinical Problem Chronic Disease or Condition Related Malnutrition Etiology severe, chronic malnutrition related to inadequate energy intake Signs/Symptoms as evidenced by estimated PO intake meeting <75% of estimated energy needs > 3 months; severe muscle wasting/ fat loss evident in acromion, clavicles, orbital, temporal areas, severely depleted extremities w/ obvious protrusion of bone per physical exam; BMI 16.7 Status Active Problem Recommendation Dietitian Recommendations/Changes continue regular diet as tolerated and ensure enlive 120mL 4x/day; ensure pudding w / dinners; soft/cut-up meats given poor dentition. Close monitoring of electrolytes given significant risk for refeeding syndrome. Lab / Micro Data Result Diagrams: 09/09/21 04:40 09/10/21 18:45 Labs: Laboratory Results - last 24 hr 09/14/21 17:28: POC Glucose 114 H 09/14/21 21:54: POC Glucose 118 H 09/15/21 05:47: POC Glucose 97 09/15/21 12:36: POC Glucose 95 Micro: Microbiology 09/09/21 21:57 Nasal Secretion SARS-CoV-2 Antigen (Rapid) - Final Physical Exam Narrative Physical exam: General: Alert, Oriented x3, Cooperative, No apparent distress, appears very frail HEENT: Atraumatic Oral: Moist Mucosa Neck: Supple Lungs: Clear to auscultation Cardiovascular: HS I+II, regular, no murmurs Abdomen: Bowel Sounds Present, Soft, Non Tender Extremities: No edema Skin: No rashes, No breakdown Neurological: Grossly intact Psych/Mental Status: Appropriate Assessment & Plan Assessment/Plan (1) Beta inessa toxicity: (2) Bradycardia, sinus: PLAN: 1. Acute toxic encephalopathy due to multiple medications, predominantly beta-inessa overdose, PUSHPA inhibitor, Plavix and Ativan with suicidal intent and attempt. Patient is alert oriented x3 now. Mobile crisis consulted. Patient is pink slipped. Awaiting discharge to inpatient psych facility 2. Severe bradycardia secondary to beta-inessa overdose, resolved Status post glucagon and calcium gluconate 3. Acute seizure disorder ruled out, likely seizure-like activity secondary to benzodiazepine withdrawal seizure EEG did not show epileptiform activity Patient on tapering doses of lorazepam 4. 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 Severe protein calorie malnutrition, evidenced by significantly reduced BMI, obvious muscle and fat loss, Paving And Surfacing Labourer consulted, continue supplements 6. Hypertensive urgency, blood pressure better controlled, Will start on lisinopril 20 mg daily Continue to hold beta-inessa 7. Hypothyroidism with incidental high TSH 9.23, free T4 and T4 is normal Patient likely not taking medications Continue on current dose of Synthroid, repeat blood work in 4 to 6 weeks 8. Prediabetes with episodes of hypoglycemia, HbA1c 5.7 We will continue to monitor 9. Stage II coccyx decubitus ulcers present on admission wound nurse consulted Continue with wound dressing 10. Rest of chronic medical conditions -history of CVA, nicotine and alcohol dependence 11. DVT prophylaxis - Lovenox SC 12. Disposition - awaiting discharge to psych facility Charges/Coding Visit Charges Inpatient E&M: 53252 Subs Hosp L2
--- NOTE | 2021-09-15 15:19 | CASEMGMT ---
Physician asked SW to talk with patient's daughter about completing Healthcare POA with patient. SW asked physician if patient is alert and oriented enough to complete documents. Physician said patient is alert and oriented and can complete Healthcare POA papers. SW spoke with patient's daughter Any and explained SW will completed document with patient. SW met with patient, introduced self and role at [facility]. SW asked patient about Healthcare POA and she is aware of document. Patient confirmed she wanted to make her daughter Any her Healthcare POA. Document completed with patient. Copies made and given to patient along with original. A copy was also placed in patient's chart. Dixie Del Angel PROFESSIONAL SERVICES SPECIALIST JAREN
--- NOTE | 2021-09-15 18:52 | NURSING ---
[facility] called to notify us that they are having difficulty with placement and will be in to reassess at 2000 tonight.
[2021-09-15 19:26] LABS: Bedside Glucose 120 mg/dL (74-106)
[2021-09-15] MEDS: QUEtiapine 25 MG Tablet 50 MG PO (20:32)
[2021-09-16] VITALS (9 sets, daily range): BP systolic 122–151; BP diastolic 65–83; PULSE 84–101; RESP 16–18; TEMP 36.1–36.8; O2SAT 88–95
--- NOTE | 2021-09-16 01:29 | NURSING ---
Sitter removed from pt room at this time per crisis center note pt cleared and does not need sitter at this time. Nursing riprap placing supervisor aware.
[2021-09-16] MEDS: Levothyroxine 75 MCG Tablet PO (06:38)
[2021-09-16 06:46] LABS: Bedside Glucose 92 mg/dL (74-106)
[2021-09-16] MEDS: Cyanocobalamin 500 MCG Tablet 1000 MCG PO (09:00)
[2021-09-16] MEDS: Thiamine Hydrochloride 100 MG Tablet PO (09:00)
[2021-09-16] MEDS: Aspirin E.C. 81 MG Tablet PO (09:00)
[2021-09-16] MEDS: levETIRAcetam 500 MG Tablet PO ×2 (09:01→21:59)
[2021-09-16] MEDS: LORazepam 1 MG Tablet PO ×2 (09:01→21:57)
[2021-09-16] MEDS: Enoxaparin 40 MG/0.4 ML Syringe SC (09:01)
--- NOTE | 2021-09-16 10:28 | CASEMGMT ---
SW called patient's daughter Any and explained that crisis came in and evaluated patient again and decided she does not need psychiatric placement. SW told Any that patient will need to go to a half-way now. Any asked about reasoning for SNF. MARIA INES told her patient is still weak and also her home environment is not good. Any said she is aware the home situation is bad. She told SW that SW should talk with patient about where to go. She feels patient is going to be resistant. SW will check with patient. Dixie Del Angel GUT DROPPER JAREN
[2021-09-16] MEDS: Bisacodyl 10 MG Suppository RC (11:27)
--- NOTE | 2021-09-16 11:51 | PN.HOSP_ITS ---
Subjective Subjective Follow-up on drug overdose/suicidal intent: Patient was seen and examined. She was reevaluated by [facility] crisis and felt not to be a suicide risk. Patient appeared to be improved today mobile crisis team and recommended the patient does not go back to her home but is rather placed somewhere. Patient has a poor living situation with her son Jamari and his girlfriend came. Adult Protective Services are involved. In the hospital, patient has been dependent for her ADLs. She is x1 assist with walker. She also is intermittently confused. Vitals are however been stable. Objective Data Objective Data Vital Signs: Vital Signs Temp Pulse Resp BP Pulse Ox 97.4 F L 84 18 142/77 H 94 09/16/21 08:40 09/16/21 08:40 09/16/21 08:40 09/16/21 08:40 09/16/21 08:40 Oxygen Flow Rate (L/min) 2 Oxygen Delivery Method Room Air Weight: 38.9 kg Body Mass Index (BMI) 16.7 Intake & Output: Intake and Output for Last 24 Hours 09/14/21 09/15/21 09/16/21 23:59 23:59 23:59 Intake Total 1350 / 1570 910 / 1150 440 / 440 Output Total 150 / 450 900 / 1100 420 / 420 Balance 1200 / 1120 Medical Nutrition Assessment Dietitian: Malnutrition Criteria Met Start: 09/08/21 10:44 Freq: Status: Active Protocol: Document 09/14/21 10:16 AG (Rec: 09/14/21 10:16 AG Desktop) Nutrition Malnutrition Evidence of Malnutrition Exists Yes Malnutrition (severe): Chronic Evidenced By Suboptimal Energy Intake ( Severe),Physical Changes ( Severe) Clinical Problem Chronic Disease or Condition Related Malnutrition Etiology severe, chronic malnutrition related to inadequate energy intake Signs/Symptoms as evidenced by estimated PO intake meeting <75% of estimated energy needs > 3 months; severe muscle wasting/ fat loss evident in acromion, clavicles, orbital, temporal areas, severely depleted extremities w/ obvious protrusion of bone per physical exam; BMI 16.7 Status Active Problem Recommendation Dietitian Recommendations/Changes continue regular diet as tolerated and ensure enlive 120mL 4x/day; ensure pudding w / dinners; soft/cut-up meats given poor dentition. Close monitoring of electrolytes given significant risk for refeeding syndrome. Lab / Micro Data Result Diagrams: 09/09/21 04:40 09/10/21 18:45 Labs: Laboratory Results - last 24 hr 09/15/21 12:36: POC Glucose 95 09/15/21 17:29: POC Glucose 120 H 09/16/21 06:34: POC Glucose 92 Micro: Microbiology 09/09/21 21:57 Nasal Secretion SARS-CoV-2 Antigen (Rapid) - Final Physical Exam Narrative Physical exam: General: Alert, Oriented x3, Cooperative, No apparent distress, appears very frail HEENT: Atraumatic Oral: Moist Mucosa Neck: Supple Lungs: Clear to auscultation Cardiovascular: HS I+II, regular, no murmurs Abdomen: Bowel Sounds Present, Soft, Non Tender Extremities: No edema Skin: No rashes, No breakdown Neurological: Grossly intact Psych/Mental Status: Appropriate Assessment & Plan Assessment/Plan (1) Beta inessa toxicity: (2) Bradycardia, sinus: PLAN: 1. Acute toxic encephalopathy due to multiple medications, resolved Patient is alert oriented x3 Patient with an initial suicidal intent/attempt. Acute psychiatric crisis ruled. Patient has been cleared by [facility]. Discharge planning to alf facility ongoing 2. Severe bradycardia secondary to beta-inessa overdose, resolved Status post glucagon and calcium gluconate 3. Acute seizure disorder ruled out, likely seizure-like activity secondary to benzodiazepine withdrawal seizure EEG did not show epileptiform activity Patient on tapering doses of lorazepam 4. 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 Severe protein calorie malnutrition, evidenced by significantly reduced BMI, obvious muscle and fat loss, Information Systems Project Manager consulted, continue supplements 6. Hypertensive urgency, blood pressure better controlled, Continue on lisinopril 20 mg daily Continue to hold beta-inessa 7. Hypothyroidism with incidental high TSH 9.23, free T4 and T4 is normal Patient likely not taking medications Continue on current dose of Synthroid, repeat blood work in 4 to 6 weeks 8. Prediabetes with episodes of hypoglycemia, HbA1c 5.7 We will continue to monitor 9. Stage II coccyx decubitus ulcers present on admission wound nurse consulted Continue with wound dressing 10. Rest of chronic medical conditions -history of CVA, nicotine and alcohol dependence 11. DVT prophylaxis - Lovenox SC 12. Disposition - awaiting discharge to SNF Charges/Coding Visit Charges Inpatient E&M: 80603 Subs Hosp L2
[2021-09-16] MEDS: Ferrous Sulfate 325 MG Tablet PO (12:08)
[2021-09-16 12:16] LABS: Bedside Glucose 119 mg/dL (74-106)
--- NOTE | 2021-09-16 12:36 | NURSING ---
Soap suds enema completed by this nurse. About 100 cc of fluid held in by pt with solid, formed stool results medium in size. Pt cleaned up and assisted back to chair at bedside
[2021-09-16] MEDS: LORazepam 2 MG/ML Syringe IV (12:43)
[2021-09-16] MEDS: 0.9% Saline Lock 10 ML Syringe IV (12:45)
--- NOTE | 2021-09-16 12:47 | CASEMGMT ---
SW met with patient. Patient remembered SW from SW's visit yesterday. SW spoke with patient about [facility] and provided a list of providers including quality and resource use data and consistent with the patient?s preferred geographic region, medical needs, and insurance network. MARIA INES preferred to go to [facility]. MARIA INES e-mailed referral to [facility]. Await response. Dixie Del Angel MSW JAREN
--- NOTE | 2021-09-16 13:47 | CASEMGMT ---
MARIA INES received an e-mail from Latoya at [facility] and they can accept patient. Latoya will start the pre-cert. MARIA INES then called patient's daughter Any to update her and she said, Absolutely not. Patient is not going to [facility]. She has heard horrible things about [facility]. Any said she will talk with patient and get back to MARIA INES today. MARIA INES notified Latoya to cancel referral and pre-cert request. Dixie EASTMAN
--- NOTE | 2021-09-16 14:15 | CASEMGMT ---
MARIA INES received a call from patient's daughter Any. She said she has not been able to hear many good things about any of patient's options. Any said if patient wants to go to [facility] that is fine. MARIA INES let her know it will likely be tomorrow. Any asked that MARIA INES let her know when patient will be leaving so she can meet patient at [facility]. MARIA INES told her SW will do this. MARIA INES e-mailed Latoya at [facility] and told her to go ahead and start the pre-cert for patient. Plan: [facility] pending insurance approval. Dixie EASTMAN
[2021-09-16 18:01] LABS: Bedside Glucose 111 mg/dL (74-106)
[2021-09-16] MEDS: QUEtiapine 25 MG Tablet 50 MG PO (21:59)
[2021-09-17] VITALS (10 sets, daily range): BP systolic 124–174; BP diastolic 66–95; PULSE 79–97; RESP 16–20; TEMP 36.6–36.9; O2SAT 90–100
[2021-09-17] MEDS: Levothyroxine 75 MCG Tablet PO (05:09)
[2021-09-17 06:51] LABS: Absolute Lymphocyte Count 1.56 X10^3/uL (0.83-4.51); Absolute Neutrophil Count 3.5 X10^3/uL (2.0-7.7); Basophil# 0.06 X10^3/uL; Eosinophil# 0.31 X10^3/uL; Eosinophils% 4.9 % (0-5); Hematocrit 33.1 % (37-47); Hemoglobin 10.1 g/dL (12.0-15.0); Lymphocyte # 1.56 X10^3/ul (0.83-4.51); Lymphocyte % 24.8 % (19-41); Mean Corp Hgb Conc 30.5 g/dL (32-36); Mean Corpuscular Hgb 28.5 pg (27.0-32.0); Mean Corpuscular Volume 93.5 fL (81-99); Monocyte# 0.79 X10^3/uL; Monocyte% 12.6 % (0-10); NRBC Flagged by Analyzer 0 % (0-5); Neutrophil # 3.47 X10^3/uL (2.7-7.7); Neutrophil % 55.1 % (47-70); Platelet Count 381 K/mm3 (150-450); RBC Distribution Width CV 17.1 % (11.6-14.6); RBC Distribution Width SD 59.2 fl (35.1-43.9); Red Blood Count 3.54 M/mm3 (4.2-5.4); White Blood Count 6.3 K/mm3 (4.4-11.0)
[2021-09-17 07:15] LABS: ALB/GLOB Ratio 0.8 RATIO (0.9-2.4); AST(SGOT) 23 U/L (15-37); Alanine Aminotransfer ALT/SGPT 30 U/L (13-56); Albumin, Serum 2.6 g/dL (3.2-5.0); Alkaline Phosphatase 163 U/L (45-117); Anion Gap 3 (5-15); BUN 53 mg/dL (7-18); BUN/Creat Ratio 83.9 RATIO (10-20); Chloride 107 mmol/L (98-107); Creatinine, Serum 0.63 mg/dL (0.55-1.02); EST Glomerular Filtration Rate 96 mL/min (>60); Est Glom Filt Rate - Afr Amer 116 mL/min (>60); Estimated Creatinine Clearance 27.48 ml/min; Globulin 3.1 g/dL (2.2-4.2); Glucose 93 mg/dL (74-106); Potassium 3.9 mmol/L (3.5-5.1); Protein, Total 5.7 g/dL (6.4-8.2); Sodium Level 139 mmol/L (136-145)
[2021-09-17] MEDS: Aspirin E.C. 81 MG Tablet PO (07:55)
[2021-09-17] MEDS: Acetaminophen 325 MG Tablet 650 MG PO ×2 (07:55→20:00)
[2021-09-17] MEDS: Thiamine Hydrochloride 100 MG Tablet PO (07:55)
[2021-09-17] MEDS: Cyanocobalamin 500 MCG Tablet 1000 MCG PO (07:55)
[2021-09-17 07:56] LABS: Bedside Glucose 95 mg/dL (74-106)
[2021-09-17] MEDS: levETIRAcetam 500 MG Tablet PO ×2 (09:14→20:55)
[2021-09-17] MEDS: LORazepam 1 MG Tablet PO ×2 (09:14→21:01)
[2021-09-17 09:36] LABS: Magnesium 1.8 mg/dL (1.6-2.6)
[2021-09-17] MEDS: 0.9% Saline Lock 10 ML Syringe IV (10:11)
[2021-09-17] MEDS: Enoxaparin 40 MG/0.4 ML Syringe SC (10:17)
[2021-09-17] MEDS: Ferrous Sulfate 325 MG Tablet PO (11:42)
[2021-09-17 12:00] LABS: Bedside Glucose 124 mg/dL (74-106)
--- NOTE | 2021-09-17 14:39 | CASEMGMT ---
MARIA INES e-mailed Latoya at [facility]. She has not yet heard back from [facility]. Dixie Del Angel SENIOR MEDIA PLANNER JAREN
--- NOTE | 2021-09-17 16:14 | CASEMGMT ---
MARIA INES called patient's daughter Any and let her know we still have not heard from insurance so patient will not be leaving today. She thanked MARIA INES for the update. Dixie Del Angel MICROBIOLOGY LABORATORY MANAGERAmalia EASTMAN
--- NOTE | 2021-09-17 16:27 | PN.HOSP_ITS ---
Subjective Subjective Patient was seen and examined. No new complaints. Still waiting on discharge to group home facility. Objective Data Objective Data Vital Signs: Vital Signs Temp Pulse Resp BP Pulse Ox 98.0 F 85 18 129/75 H 94 09/17/21 09:09 09/17/21 14:52 09/17/21 09:09 09/17/21 09:09 09/17/21 09:09 Oxygen Flow Rate (L/min) 2 Oxygen Delivery Method Room Air Weight: 38.8 kg Body Mass Index (BMI) 16.7 Intake & Output: Intake and Output for Last 24 Hours 09/15/21 09/16/21 09/17/21 23:59 23:59 23:59 Intake Total 910 / 1150 1160 / 1160 1204 / 1204 Output Total 900 / 1100 720 / 720 1000 / 1000 Balance 440 / 440 204 / 204 Medical Nutrition Assessment Dietitian: Malnutrition Criteria Met Start: 09/08/21 10:44 Freq: Status: Active Protocol: Document 09/14/21 10:16 AG (Rec: 09/14/21 10:16 AG Desktop) Nutrition Malnutrition Evidence of Malnutrition Exists Yes Malnutrition (severe): Chronic Evidenced By Suboptimal Energy Intake ( Severe),Physical Changes ( Severe) Clinical Problem Chronic Disease or Condition Related Malnutrition Etiology severe, chronic malnutrition related to inadequate energy intake Signs/Symptoms as evidenced by estimated PO intake meeting <75% of estimated energy needs > 3 months; severe muscle wasting/ fat loss evident in acromion, clavicles, orbital, temporal areas, severely depleted extremities w/ obvious protrusion of bone per physical exam; BMI 16.7 Status Active Problem Recommendation Dietitian Recommendations/Changes continue regular diet as tolerated and ensure enlive 120mL 4x/day; ensure pudding w / dinners; soft/cut-up meats given poor dentition. Close monitoring of electrolytes given significant risk for refeeding syndrome. Lab / Micro Data Result Diagrams: 09/17/21 05:52 09/17/21 05:52 Labs: Laboratory Results - last 24 hr 09/16/21 17:54: POC Glucose 111 H 09/17/21 05:52: WBC 6.3, RBC 3.54 L, Hgb 10.1 L, Hct 33.1 L, MCV 93.5, MCH 28.5, MCHC 30.5 L, RDW Std Deviation 59.2 H, RDW Coeff of María 17.1 H, Plt Count 381, MPV 10.0, Immature Gran % (Auto) 1.600 H, Neut % (Auto) 55.1, Lymph % (Auto) 24.8, [place] % (Auto) 12.6 H, Eos % (Auto) 4.9, Baso % (Auto) 1.0, Absolute Neuts (auto) 3.5, Absolute Lymphs (auto) 1.56, Nucleated RBC % 0 09/17/21 05:52: Sodium 139, Potassium 3.9, Chloride 107, Carbon Dioxide 29.0, Anion Gap 3 L, BUN 53 H, Creatinine 0.63, Estim Creat Clear Calc 27.48, Est GFR (MDRD) Af Amer 116, Est GFR (MDRD) Non-Af 96, BUN/Creatinine Ratio 83.9 H, Gl ucose 93, Calcium 9.0, Total Bilirubin 0.20, AST 23, ALT 30, Alkaline Phosphatase 163 H, Total Protein 5.7 L, Albumin 2.6 L, Globulin 3.1, Albumin/Globulin Ratio 0.8 L 09/17/21 05:52: Magnesium 1.8 09/17/21 07:50: POC Glucose 95 09/17/21 11:41: POC Glucose 124 H Micro: Microbiology 09/09/21 21:57 Nasal Secretion SARS-CoV-2 Antigen (Rapid) - Final Physical Exam Narrative Physical exam: General: Alert, Oriented x3, Cooperative, no apparent distress, appears very frail HEENT: Atraumatic Oral: Moist Mucosa Neck: Supple Lungs: Clear to auscultation Cardiovascular: HS I+II, regular, no murmurs Abdomen: Bowel Sounds Present, Soft, Non Tender Extremities: No edema Skin: No rashes, No breakdown Neurological: Grossly intact Psych/Mental Status: Appropriate Assessment & Plan Assessment/Plan (1) Beta inessa toxicity: (2) Bradycardia, sinus: PLAN: 1. Acute toxic encephalopathy due to multiple medications, resolved Patient is alert oriented x3 Patient with an initial suicidal intent/attempt. Acute psychiatric crisis ruled. Patient has been cleared by [facility] crisis. Discharge planning to group home facility ongoing 2. Severe bradycardia secondary to beta-inessa overdose, resolved Status post glucagon and calcium gluconate 3. Acute seizure disorder ruled out, likely seizure-like activity secondary to benzodiazepine withdrawal seizure EEG did not show epileptiform activity Patient on tapering doses of lorazepam 4. 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 Severe protein calorie malnutrition, evidenced by significantly reduced BMI, obvious muscle and fat loss, Federal Mediation Commissioner consulted, continue supplements 6. Hypertensive urgency, blood pressure better controlled, Continue on lisinopril 20 mg daily Continue to hold beta-inessa 7. Hypothyroidism with incidental high TSH 9.23, free T4 and T4 is normal Patient likely not taking medications Continue on current dose of Synthroid, repeat blood work in 4 to 6 weeks 8. Hypomagnesemia, magnesium is 1.8, replace, recheck in a.m. 9. Prediabetes with episodes of hypoglycemia, HbA1c 5.7 We will continue to monitor 10. Stage II coccyx decubitus ulcers present on admission wound nurse consulted Continue with wound dressing 11. Rest of chronic medical conditions -history of CVA, nicotine and alcohol d ependence 12. DVT prophylaxis - Lovenox SC 13. Disposition - awaiting discharge to SNF Charges/Coding Visit Charges Inpatient E&M: 47598 Subs Hosp L2
[2021-09-17 17:30] LABS: Bedside Glucose 99 mg/dL (74-106)
[2021-09-17] MEDS: QUEtiapine 25 MG Tablet 50 MG PO (20:55)
[2021-09-17] MEDS: MELATONIN 3 MG TABLET PO (21:01)
[2021-09-17 22:51] LABS: Bedside Glucose 102 mg/dL (74-106)
[2021-09-18] MEDS: Acetaminophen 325 MG Tablet 650 MG PO ×2 (00:16→07:38)
[2021-09-18 02:58] VITALS: PULSE 79
[2021-09-18 04:00] VITALS: BP 151/72; PULSE 75; RESP 14; TEMP 36.2; O2SAT 95
[2021-09-18] MEDS: Levothyroxine 75 MCG Tablet PO (06:17)
[2021-09-18 06:37] VITALS: PULSE 74
[2021-09-18 06:45] LABS: Bedside Glucose 90 mg/dL (74-106)
[2021-09-18] MEDS: Thiamine Hydrochloride 100 MG Tablet PO (07:38)
[2021-09-18] MEDS: Cyanocobalamin 500 MCG Tablet 1000 MCG PO (07:38)
[2021-09-18] MEDS: Aspirin E.C. 81 MG Tablet PO (07:38)
--- NOTE | 2021-09-18 07:40 | TREXTCAR_ITS ---
Diet 09/07/21 17:26 Diet: Regular - General Food consistency:: Regular Liquid Consistency:: Regular/Thin Type of Dietary Supplement:: ensure pudding w/ dinners Diet Comments: soft/cut up meats- poor dentition Routine Orders/Code Status Enema Type: Fleetz Enema Frequency: Daily PRN Suppository Type: Dulcolax 10mg Suppository Frequency: Daily PRN Keep PO Greater than or Equal to (%): 94 Routine Lab Work: CBC (within 3 days) and BMP (within 3 days) Code Status: Full Code Wound(s) rt thakkar: Wound Type: Skin Tear coccyx: Wound Type: Pressure Injury left buttock: Wound Type: Pressure Injury Therapies Weight Bearing: Weight bearing as tolerated Physical Therapy: Eval and Treat Occupational Therapy: Eval and Treat Problem/Diagnosis (1) Beta inessa toxicity: Status: Acute (2) Bradycardia, sinus: Status: Acute Allergies/Procedures Done in Hospital Allergies meperidine [From Demerol] Allergy (Verified 09/07/21 13:19) Rash Procedures: 2-D Echocardiogram Type of Care/Length of Stay Estimated LOS: Convalescent Care Less Than 30 days Type of Care Needed: Skilled Rehab Potential: Good Prognosis: Good Additional Orders/Day of Discharge Day of Discharge: 09/18/21 Dietary and Speech Recommendations Dietitian Recommendations/Changes: continue regular diet as tolerated and ensure enlive 120mL 4x/day; ensure pudding w/ dinners; soft/cut-up meats given poor dentition. Discharge Plan Admission Admit Date/Time: 09/07/21 15:06 Primary Reason for Your Visit: Bradycardia Attending Provider: Felisha Goodman Primary Care Provider: Duncan Boateng Consulting Providers: Carlie Granados ; Ian Iyer ; Gary Hyman Instructions Additional Instructions / Restrictions: Patient is on a benzodiazepine taper - 1 mg p.o. twice daily for 5 more days making a total of 14 days Then 0.5 mg twice daily for 2 weeks Then 0.5mg QHS for 2 weeks then 0.25mg QHS for 2 weeks Patient can follow-up in the outpatient with Orthopedics (Dr. Fernando Catherine) in [facility]. Discharge Orders/Prescriptions Prescriptions: New aspirin 81 mg Tablet,Delayed Release (Dr/Ec) 81 mg PO BREAKFAST 30 Days Qty: 0 RF: 0 Ensure Enlive 0.08 gram-1.5 kcal/mL Liquid 120 ml PO 4X/DAY Qty: 0 RF: 0 lorazepam 1 mg Tablet 1 mg PO BID Qty: 0 RF: 0 quetiapine 25 mg Tablet 50 mg PO QHS Qty: 0 RF: 0 Continued levothyroxine 75 mcg Tablet 75 mcg PO DAILY RF: 0 metoprolol succinate 50 mg Tablet Extended Release 24 Hr 50 mg PO DAILY RF: 0 lisinopril 20 mg Tablet 20 mg PO DAILY RF: 0 montelukast [Singulair] 10 mg Tablet 10 mg PO QPM RF: 0 clopidogrel 75 mg Tablet 75 mg PO DAILY RF: 0 ferrous sulfate [FeroSul] 325 mg (65 mg iron) Tablet 325 mg PO DAILY RF: 0 Referrals / Follow Up: Duncan Boateng MD [Primary Care Provider] - Within 2 Weeks Disposition Disposition (needs filled in before D/C Order can be placed): [facility]
[2021-09-18 08:56] VITALS: O2SAT 95
[2021-09-18 09:46] VITALS: BP 145/90; PULSE 77; RESP 18; TEMP 36.2; O2SAT 95
[2021-09-18] MEDS: levETIRAcetam 500 MG Tablet PO (09:50)
[2021-09-18] MEDS: Enoxaparin 40 MG/0.4 ML Syringe SC (09:50)
[2021-09-18] MEDS: LORazepam 1 MG Tablet PO (09:50)
[2021-09-18 09:56] VITALS: O2SAT 95
[2021-09-18] MEDS: Ferrous Sulfate 325 MG Tablet PO (11:34)
--- NOTE | 2021-09-18 11:55 | CASEMGMT ---
MARIA INES received an e-mail from Latoya at [facility] and patient has been approved. SW notified physician, patient, RN, and patient's daughter. Await COVMA test and orders. Dixie EASTMAN
--- NOTE | 2021-09-18 12:51 | PCM.DC.SUM ---
Providers Date of Admission: 09/07/21 Primary Care Physician: Dr. Duncan Boateng MD Consultations 09/07/21 17:26 Consult: Pointer Helper / Pulmonary Medicine Routine Consulting Provider: Ian Iyer Reason for Consult: BB overdose EMERGENT Consult: No MD Notified: Yes Date Notified: 09/07/21 Time Notified: 15:08 Method of Notification: Text 09/13/21 08:32 Consult: Onc/Wound/control and recovery special tactics Routine Comment: Reason for Consult:: cocyx stage 2 ulcer Reason For Visit: BB OVERDOSE Diagnosis Discharge Diagnosis (1) Beta inessa toxicity: Status: Acute (2) Bradycardia, sinus: Status: Acute Code(s): R00.1 - Bradycardia, unspecified Medications at Discharge Home Medications levothyroxine 75 mcg PO DAILY 06/05/21 lisinopril 20 mg PO DAILY 06/05/21 metoprolol succinate 50 mg PO DAILY 06/05/21 montelukast [Singulair] 10 mg PO QPM 06/05/21 clopidogrel 75 mg PO DAILY 09/07/21 ferrous sulfate [FeroSul] 325 mg PO DAILY 09/07/21 aspirin 81 mg PO BREAKFAST 30 Days #0 tab 09/18/21 food supplemt, lactose-reduced [Ensure Enlive] 120 ml PO 4X/DAY #0 ml 09/18/21 lorazepam 1 mg PO BID #0 tab 09/18/21 quetiapine 50 mg PO QHS #0 tab 09/18/21 Hospital Course Operations None Procedures 2-D Echocardiogram Summary of Care Provided Minutes Spent on Discharge: 40 Hospital Course: 81-year-old female with past medical history of hypertension, anxiety disorder who was admitted initially to the ICU with altered mental status, confusion and hallucination ongoing for several days. Patient reportedly took extra doses of metoprolol, lisinopril and potentially Plavix and Ativan. Patient's hospital management was as follows: 1. Acute toxic encephalopathy due to multiple medications, resolved with time Patient with an initial suicidal intent/attempt. Acute psychiatric crisis ruled out or cleared by [facility]. 2. Severe bradycardia secondary to beta-inessa overdose, resolved Status post glucagon and calcium gluconate 3. Acute seizure disorder ruled out, likely seizure-like activity secondary to benzodiazepine withdrawal seizure EEG did not show epileptiform activity; started on Keppra SOC teleneurology consulted; recommended tapering doses of lorazepam 4. 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 Fernando Catherine 5. Severe protein calorie malnutrition, evidenced by significantly reduced BMI, obvious muscle and fat loss, Clinical Social Work Therapist consulted, continue supplements 6. Hypertensive urgency, blood pressure medication initially held, later on resumed 7. Hypothyroidism with incidental high TSH 9.23, free T4 and T4 is normal Patient likely not taking medications Continue on current dose of Synthroid, repeat blood work in 4 to 6 weeks 8. Hypomagnesemia, replaced 9. Prediabetes with episodes of hypoglycemia, HbA1c 5.7 10. Stage II coccyx decubitus ulcers present on admission wound nurse consulted Continue with wound dressing Physical Exam Narrative Physical exam: General: Alert, Oriented x3, Cooperative, no apparent distress, appears very frail HEENT: Atraumatic Oral: Moist Mucosa Neck: Supple Lungs: Clear to auscultation Cardiovascular: HS I+II, regular, no murmurs Abdomen: Bowel Sounds Present, Soft, Non Tender Extremities: No edema Skin: No rashes, No breakdown Neurological: Grossly intact Psych/Mental Status: Appropriate Medical Records Data Medical Nutrition Assessment Dietitian: Malnutrition Criteria Met Start: 09/08/21 10:44 Freq: Status: Active Protocol: Document 09/14/21 10:16 AG (Rec: 09/14/21 10:16 AG Desktop) Nutrition Malnutrition Evidence of Malnutrition Exists Yes Malnutrition (severe): Chronic Evidenced By Suboptimal Energy Intake ( Severe),Physical Changes ( Severe) Clinical Problem Chronic Disease or Condition Related Malnutrition Etiology severe, chronic malnutrition related to inadequate energy intake Signs/Symptoms as evidenced by estimated PO intake meeting <75% of estimated energy needs > 3 months; severe muscle wasting/ fat loss evident in acromion, clavicles, orbital, temporal areas, severely depleted extremities w/ obvious protrusion of bone per physical exam; BMI 16.7 Status Active Problem Recommendation Dietitian Recommendations/Changes continue regular diet as tolerated and ensure enlive 120mL 4x/day; ensure pudding w / dinners; soft/cut-up meats given poor dentition. Close monitoring of electrolytes given significant risk for refeeding syndrome. Weight / BMI Weight Weight: 41 kg Body Mass Index (BMI) 16.7 ABG / Lab / Microbiology Data Result Diagrams: 09/17/21 05:52 09/17/21 05:52 Laboratory: Laboratory Results - last 24 hr 09/17/21 16:48: POC Glucose 99 09/17/21 22:07: POC Glucose 102 09/18/21 06:16: POC Glucose 90 Microbiology: Microbiology 09/18/21 11:30 Nasal Secretion SARS-CoV-2 Antigen (Rapid) - Final 09/09/21 21:57 Nasal Secretion SARS-CoV-2 Antigen (Rapid) - Final D/C Instructions Discharge Diet: No restrictions Meaningful Use Info Meaningful Use Diagnoses (Choose all that apply): None applicable Discharge Plan Admission Admit Date/Time: 09/07/21 15:06 Primary Reason for Your Visit: Bradycardia Attending Provider: Felisha Goodman Primary Care Provider: Duncan Boateng Consulting Providers: Carlie Granados ; Ian Iyer ; Gary Hyman Instructions Additional Instructions / Restrictions: Patient is on a benzodiazepine taper - 1 mg p.o. twice daily for 5 more days making a total of 14 days Then 0.5 mg twice daily for 2 weeks Then 0.5mg QHS for 2 weeks then 0.25mg QHS for 2 weeks Patient can follow-up in the outpatient with Orthopedics (Dr. Fernando Catherine) in [facility]. Discharge Orders/Prescriptions Prescriptions: New aspirin 81 mg Tablet,Delayed Release (Dr/Ec) 81 mg PO BREAKFAST 30 Days Qty: 0 RF: 0 Ensure Enlive 0.08 gram-1.5 kcal/mL Liquid 120 ml PO 4X/DAY Qty: 0 RF: 0 lorazepam 1 mg Tablet 1 mg PO BID Qty: 0 RF: 0 quetiapine 25 mg Tablet 50 mg PO QHS Qty: 0 RF: 0 Continued levothyroxine 75 mcg Tablet 75 mcg PO DAILY RF: 0 metoprolol succinate 50 mg Tablet Extended Release 24 Hr 50 mg PO DAILY RF: 0 lisinopril 20 mg Tablet 20 mg PO DAILY RF: 0 montelukast [Singulair] 10 mg Tablet 10 mg PO QPM RF: 0 clopidogrel 75 mg Tablet 75 mg PO DAILY RF: 0 ferrous sulfate [FeroSul] 325 mg (65 mg iron) Tablet 325 mg PO DAILY RF: 0 Referrals / Follow Up: Duncan Boateng MD [Primary Care Provider] - Within 2 Weeks Disposition Disposition (needs filled in before D/C Order can be placed): [facility] Charges/Coding Visit Charges Inpatient E&M: 74975 Disch Hosp
--- NOTE | 2021-09-18 13:14 | NURSING ---
This RN called and gave report to VERENA Hankins at [facility].
--- NOTE | 2021-09-18 13:17 | CASEMGMT ---
MARIA INES arranged for patient to get picked up at 1400 via cot. MARIA INES e-mailed orders, COVID test, and milk pickup driver time to [facility] at [facility]. SW notified RN, pharmacist in charge, and patient's daughter Any. Plan: d/c to [facility] under skilled level of care on a convalescent stay. [facility] transported via cot. Dixie Del Angel [employer] SALES MANAGER JAREN
== END 2021-09-18 14:20 | DRG 917 ==
LOC: ED 15:31 → ICU 09-08 07:08 → PCU 09-09 12:37
PROVIDERS: Internal Medicine; Internal Medicine Critical Care Medicine; Admitting Provider Family Medicine; Emergency Provider Emergency Medicine; PCP Family Medicine; Visit Provider Internal Medicine
DX: T44.7X2A Poisoning by beta-adrenoreceptor antagonists, intentional self-harm, initial encounter (principal); E43 Unspecified severe protein-calorie malnutrition; G92.9 Unspecified toxic encephalopathy; I47.1 Supraventricular tachycardia; F13.939 Sedative, hypnotic or anxiolytic use, unspecified with withdrawal, unspecified; Z68.1 Body mass index [BMI] 19.9 or less, adult; L89.152 Pressure ulcer of sacral region, stage 2; D50.9 Iron deficiency anemia, unspecified; F17.290 Nicotine dependence, other tobacco product, uncomplicated; R56.9 Unspecified convulsions; I73.9 Peripheral vascular disease, unspecified; J44.9 Chronic obstructive pulmonary disease, unspecified; T46.4X2A Poisoning by angiotensin-converting-enzyme inhibitors, intentional self-harm, initial encounter; T45.522A Poisoning by antithrombotic drugs, intentional self-harm, initial encounter; T42.4X2A Poisoning by benzodiazepines, intentional self-harm, initial encounter; I10 Essential (primary) hypertension; R00.1 Bradycardia, unspecified; S00.83XA Contusion of other part of head, initial encounter; E16.2 Hypoglycemia, unspecified; I16.0 Hypertensive urgency; F41.9 Anxiety disorder, unspecified; W19.XXXA Unspecified fall, initial encounter; E03.9 Hypothyroidism, unspecified; Z79.02 Long term (current) use of antithrombotics/antiplatelets; R62.7 Adult failure to thrive; Z96.642 Presence of left artificial hip joint; Z86.73 Personal history of transient ischemic attack (TIA), and cerebral infarction without residual deficits; Z79.890 Hormone replacement therapy; Z79.899 Other long term (current) drug therapy; Y93.9 Activity, unspecified; F32.A Depression, unspecified; Y99.9 Unspecified external cause status; Y92.9 Unspecified place or not applicable; T84.021D Dislocation of internal left hip prosthesis, subsequent encounter; Y79.2 Prosthetic and other implants, materials and accessory orthopedic devices associated with adverse incidents; R29.717 NIHSS score 17; Z86.16 Personal history of COVID-19; R73.03 Prediabetes
CPT/HCPCS: 36415; 70450; 70496; 70498; 73502; 80048; 80053; 80061; 80307; 81001; 82607; 82746; 82803; 82947; 82962; 83036; 83605; 83735; 84100; 84439; 84443; 84481; 84484; 85025; 85610; 85730; 87426; 87635; 87811; 93005; 93306; 94762; 95819; 97110; 97116; 97162; 97166; 97530; 97535; 97802; 97803; 99251; 99285; J7030; P9612; Q9967; A4216; G0463; J0610; J1610; J7799; U0003; U0005

== ENCOUNTER 2022-06-10 11:22 | Inpatient (IN) | payer MEDICARE, SELFPAY ==
[2022-06-10] VITALS (10 sets, daily range): BP systolic 102–174; BP diastolic 65–72; PULSE 71–87; RESP 16–25; TEMP 36–37.2; O2SAT 92–100; BMI 16.3; BMI 15.5
[2022-06-10] MEDS: Ipratropium/Albuterol Sulfate 3 ML AMPUL.NEB INHALATION ×2 (12:13→20:09)
[2022-06-10 12:20] LABS: Absolute Lymphocyte Count 0.99 X10^3/uL (0.83-4.51); Absolute Neutrophil Count 12.7 X10^3/uL (2.0-7.7); Basophil# 0.05 X10^3/uL; Basophil% 0.3 % (0-1); Eosinophil# 0.09 X10^3/uL; Eosinophils% 0.6 % (0-5); Hematocrit 41.4 % (37-47); Hemoglobin 12.3 g/dL (12.0-15.0); Lymphocyte # 0.99 X10^3/ul (0.83-4.51); Lymphocyte % 6.3 % (19-41); Mean Corp Hgb Conc 29.7 g/dL (32-36); Mean Corpuscular Volume 97.6 fL (81-99); Mean Platelet Vol. 9.2 fl (6.2-12.0); Monocyte# 1.18 X10^3/uL; Monocyte% 7.6 % (0-10); NRBC Flagged by Analyzer 0 % (0-5); Neutrophil # 12.66 X10^3/uL (2.7-7.7); Neutrophil % 81.2 % (47-70); POSITIVE MORPHOLOGY YES; Platelet Count 497 K/mm3 (150-450); RBC Distribution Width CV 14.1 % (11.6-14.6); RBC Distribution Width SD 51.2 fl (35.1-43.9); Red Blood Count 4.24 M/mm3 (4.2-5.4); White Blood Count 15.6 K/mm3 (4.4-11.0)
[2022-06-10 12:23] LABS: Differential Indicated SCAN CRITERIA MET
[2022-06-10 12:36] LABS: Allen Test Positive; Base Excess 6 mmol/L (-2 to +2); Bicarbonate 31.4 mmol/L (22-26); Blood Gas Specimen Type ART; PO2 83 mmHG (75-100); SITE R Radial; SO2 95 % (95-99); Total Carbon Dioxide 33 mmol/L; pCO2 56.6 mmHg (35-45); pH 7.35 (7.35-7.45)
[2022-06-10 12:39] LABS: Anion Gap 7 (5-15); BUN 26 mg/dL (7-18); BUN/Creat Ratio 32.1 RATIO (10-20); Calcium,Total 9.4 mg/dL (8.5-10.1); Chloride 101 mmol/L (98-107); Creatinine, Serum 0.81 mg/dL (0.55-1.02); EST Glomerular Filtration Rate 72 mL/min (>60); Est Glom Filt Rate - Afr Amer 87 mL/min (>60); Estimated Creatinine Clearance 34.83 ml/min; Glucose 85 mg/dL (74-106); Potassium 4.4 mmol/L (3.5-5.1); Sodium Level 136 mmol/L (136-145); Troponin-I HS 13 pg/mL (3.0-54.0)
--- NOTE | 2022-06-10 12:53 | RAD_ITS ---
EXAM: XR CHEST, 1 VIEW CLINICAL INDICATION: shortness of breath TECHNIQUE: Frontal view of the chest. This report was created using [employer] report generation technology. COMPARISON: XR Chest dated 06/05/2022 FINDINGS: LUNGS AND PLEURAL SPACES: Increasing pulmonary vascular congestion. Bibasilar pulmonary opacities which may represent edema and/or pneumonia. Small bilateral pleural effusion. Hyperinflation suggesting emphysema. No pneumothorax. HEART: Normal heart size. MEDIASTINUM: No mediastinal or hilar mass. BONES/JOINTS: No acute abnormality. SOFT TISSUES: Normal. RAD/Chest 1 View (Portable) IMPRESSION: Increasing pulmonary vascular congestion. New bibasilar pulmonary densities which may represent pneumonia and/or pulmonary edema. COPD. Electronically Signed: Jordan Klelogg MD at 13:24 EST ,
[2022-06-10 13:08] LABS: BNP,B-Type NATRIURETIC PEPTIDE 581.9 pg/mL (0-100)
--- NOTE | 2022-06-10 13:35 | CT_ITS ---
EXAM: CT HEAD WITHOUT INTRAVENOUS CONTRAST CLINICAL INDICATION: confusion TECHNIQUE: Multiple axial images were obtained of the head without intravenous contrast. This CT exam was performed using one or more of the following dose reduction techniques: automated exposure control, adjustment of the mA and/or kV according to patient size, and/or use of iterative reconstruction technique. This report was created using [employer] report generation technology. COMPARISON: CT Head dated 09/07/2021 FINDINGS: BRAIN AND EXTRA-AXIAL SPACES: Areas of diminished white matter density noted within both cerebral hemispheres suggestive of chronic microvascular change. Prominence of the cortical sulci and ventricles related to volume loss change. No intra- or extra-axial hemorrhage. No evidence of acute infarct. No intracranial mass or mass effect. There is preservation of the ruiz/white matter interface. Posterior fossa structures are unremarkable. Basal cisterns are patent. BONES/JOINTS: No suspicious lytic or blastic abnormality. SINUSES: Unremarkable as visualized. No acute sinusitis. MASTOID AIR CELLS: Normal. Clear. ORBITS: Visualized globes, extraocular muscles, optic nerves and retrobulbar fat appear unremarkable. CT/Brain/Head without Contrast IMPRESSION: 1. No acute intracranial abnormality. 2. Stable senescent changes. Electronically Signed: Jordan Kellogg MD at 15:13 EST ,
--- NOTE | 2022-06-10 13:36 | CT_ITS ---
EXAM: CT ANGIOGRAPHY CHEST WITHOUT AND WITH INTRAVENOUS CONTRAST CLINICAL INDICATION: sob, concern for PE TECHNIQUE: Helically acquired angiography images were obtained of the chest without and with intravenous contrast. This CT exam was performed using one or more of the following dose reduction techniques: automated exposure control, adjustment of the mA and/or kV according to patient size, and/or use of iterative reconstruction technique. This report was created using [employer] report generation technology. MIP reconstructed images were created and reviewed. CONTRAST: IV 100mL [id number] COMPARISON: None. FINDINGS: PULMONARY ARTERIES: Normal. Normal in caliber. No evidence of pulmonary embolism. AORTA: Normal. Normal in caliber. No evidence of dissection. GREAT VESSELS OF AORTIC ARCH: Normal. Normal in caliber. No evidence of dissection. INFERIOR VENA CAVA: Contrast refluxes into distended inferior vena cava and hepatic veins indicative of increased right-sided heart pressure. LUNGS AND PLEURAL SPACES: Small bilateral pleural effusions. Calcific pleural plaquing present bilaterally. Diffuse interstitial thickening of the lungs which may represent pulmonary edema and/or fibrosis. Honeycombing of the lung bases raise possibility of usual interstitial pneumonia. Diffuse centrilobular pulmonary emphysema. No mass. HEART: Left ventricular hypertrophy noted. MEDIASTINUM: Normal. No mediastinal or hilar adenopathy. Esophagus is unremarkable. No hiatal hernia. THYROID: Normal. No thyroid lesions. BONES/JOINTS: Normal. No suspicious lytic or blastic abnormality. CT/CTA Chest W/WO Contrast IMPRESSION: 1. No evidence of acute pulmonary embolism. 2. Pulmonary emphysema. 3. Interstitial pulmonary densities and bibasilar honeycombing suggestive of usual interstitial pneumonia/pulmonary fibrosis. Suspect superimposed pulmonary edema. 4. Small bilateral pleural effusions and calcific pleural plaquing. 5. Left ventricular hypertrophy Electronically Signed: Jordan Kellogg MD at 15:19 EST ,
--- NOTE | 2022-06-10 15:56 | ED.VIS.DYS ---
HPI History of Present Illness Chief Complaint: Shortness of Breath Informant: patient, family and EMS Narrative Narrative: Patient is an 82-year-old female with history of peripheral artery disease, severe malnutrition, hyponatremia, hypertension, prior stroke and COPD on 2-1/2 L at baseline. Patient was more short of breath and continued to be confused today. Per EMS she was 83% on 3 L when they arrived. She states her oxygen was working. No fevers. Has had increased cough for the past week. Lives with her son and [id number]. Apparently on Tuesday night patient's was confused, not talking right and difficult to understand. Patient states that she was playing Scrabble and then could not get the buttons. Not sure if she had a fever but did have some shaking chills on Tuesday. Patient has no other complaints at this time. She states she does not see a ecological modeler. [facility] Medical History COPD (chronic obstructive pulmonary disease) Former smoker Gluten intolerance Hypertension Smoker Stroke/cerebrovascular accident Home Medications levothyroxine 75 mcg tablet 75 mcg PO DAILY THYROID 06/05/21 [History Last Taken 06/09/22] lisinopril 20 mg tablet 20 mg PO DAILY BLOOD PRESSURE 06/05/21 [History Last Taken 06/09/22] metoprolol succinate 50 mg tablet,extended release 24 hr 50 mg PO QPM BLOOD PRESSURE 06/05/21 [History Last Taken 06/09/22 06:00] montelukast 10 mg tablet (Singulair) 10 mg PO QHS BREATHING 06/05/21 [History Last Taken 06/09/22] clopidogrel 75 mg tablet 75 mg PO DAILY BLOOD THINNER 09/07/21 [History Last Taken 06/09/22] hydrocodone-acetaminophen 5-325mg 5mg-325mg 1 tab PO Q6H PRN Pain 06/10/22 [History Last Taken 06/08/22] lorazepam 2 mg tablet 2 mg PO TID ANXIETY 06/10/22 [History Last Taken 06/09/22] oxybutynin chloride 5 mg tablet,extended release 24 hr 5 mg PO DAILY OVERACTIVE BLADDER 06/10/22 [History Last Taken 06/09/22] Allergy/AdvReac Type Severity Reaction Status Date / Time meperidine [From Demerol] Allergy Rash Verified 06/10/22 11:33 Family History Mother Hypertension Heart disease Father Hypertension Cancer Hx prostate CA. Other CVA (cerebral vascular accident) Surgical History History of total left hip replacement Hx of breast implants, bilateral Social History household members: other details: Son's girlfriend Smoking Status: Former smoker how long ago did patient quit smoking: Reports recently quit cigarette tobacco, prior heavy since youth. 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 substance use type: does not use ROS ROS ED Constitutional Constitutional ED: Reports chills; Denies fever(s) Eyes Eyes: Denies change in vision ENT ENT ED: Denies sore throat Cardiovascular Cardiovascular: Denies chest pain or palpitations Respiratory/Chest Respiratory/Chest: Reports cough and dyspnea Gastrointestinal Gastrointestinal: Denies abdominal pain, nausea or vomiting Genitourinary Genitourinary ED: Denies dysuria Musculoskeletal Musculoskeletal: Denies arthralgias or myalgias Integumentary Denies rash Neurologic Neurologic: Reports weakness Psychiatric Psychiatric: Denies anxiety Hematologic/Lymphatic Hematologic/Lymphatic: Denies easy bleeding or easy bruising EXAM Physical Exam Const Vital Signs: 06/10/22 11:28 06/10/22 11:35 06/10/22 12:13 Temperature 98.1 F Temperature Source Oral Pulse Rate 87 71 Respiratory Rate 18 25 H Respiratory Effort Normal Non-Labored Respiratory Depth Normal Respiratory Pattern Normal Blood Pressure 174/72 H Blood Pressure Mean 106 Pulse Ox 100 Oxygen Delivery Method Nasal Cannula Oxygen Flow Rate (L/min) 3 06/10/22 12:13 06/10/22 13:30 06/10/22 14:43 Temperature 98.1 F 96.8 F L Temperature Source Oral Temporal Pulse Rate 82 77 Respiratory Rate 24 H 18 Respiratory Effort Respiratory Depth Respiratory Pattern Blood Pressure 145/70 H 145/68 H Blood Pressure Mean 95 93 Pulse Ox 96 99 98 Oxygen Delivery Method Nasal Cannula Nasal Cannula Nasal Cannula Oxygen Flow Rate (L/min) 2 3 3 Positive cachectic General Appearance ED: cachectic and NAD; Negative for pallor Nutritional Appearance: cachectic HEENT Reports moist mucous membranes atraumatic Eyes PERRL and EOMs intact bilaterally Neck no lymphadenopathy and supple Resp Resp Narrative: Diminished breath sounds more pronounced on the right. Diminished breath sounds at the bases bilaterally. Mild end expiratory wheezing present Cardio regular rate and regular rhythm GI non-tender and non-distended Extremity normal to inspection General Extremety ED: Negative for edema or tenderness General Extremity: Negative for edema Neuro Neuro Narrative: Generally weak. No focal deficits appreciated. No slurred speech. Sensorium / Orientation: alert, oriented to person and oriented to place Psych mental status grossly normal Skin no wounds General Skin Exam: Negative for jaundice or pallor MDM MDM MDM Narrative Medical decision making narrative: Patient is evaluated for generalized weakness, confusion and shortness of breath. Symptoms seem to be going on for the past week. She seems more like an encephalopathy versus a focal stroke on my exam. We spoke with the family who was concerned about a stroke so a CT of the brain was ordered. No acute process was found given that she is been having symptoms for at least 6 days I do not think there is a stroke as some he would have shown up on the CT at this point. She does have a leukocytosis with a white blood cell count of 15.6 and her BMP large unremarkable. High since he troponin normal at 13 however her BNP is elevated at 581. Chest x-ray to read by myself as well as radiology shows increasing pulmonary vascular congestion and new bibasilar pulmonary densities which could be pneumonia and/or pulmonary edema. CT of the chest with IV contrast ordered which is negative for pulmonary emboli but does show chronic findings with pulmonary emphysema as well as interstitial pulmonary densities and bibasilar honeycombing suggestive of unusual interstitial pneumonia/pulmonary fibrosis and suspect superimposed pulmonary edema. Patient has small bilateral pleural effusions. She has improvement of her symptoms with DuoNeb in the ER. She was treated with a dose of Solu-Medrol as well as Rocephin and azithromycin. Clinically she does not appear fluid overloaded we will hold on diuresis at this time however patient is not given IV fluids either. Given patient's pulmonary findings, frailness and confusion I do think she would benefit from admission. Patient agreeable this plan of care. She remains hemodynamically stable in the emergency room. This time she is not having increased oxygen demands and is at her baseline oxygen. ABG was obtained to rule out hypercapnia and it showed a compensated respiratory acidosis consistent with chronic hypercapnic respiratory failure Lab Data Attestation: I reviewed the patient's lab results. Labs: Laboratory Results - last 24 hr 06/10/22 06/10/22 06/10/22 12:15 12:15 12:15 WBC 15.6 H RBC 4.24 Hgb 12.3 Hct 41.4 MCV 97.6 MCH 29.0 MCHC 29.7 L RDW Std Deviation 51.2 H RDW Coeff of María 14.1 Plt Count 497 H MPV 9.2 Immature Gran % (Auto) 4.000 H Neut % (Auto) 81.2 H Lymph % (Auto) 6.3 L [place] % (Auto) 7.6 Eos % (Auto) 0.6 Baso % (Auto) 0.3 Absolute Neuts (auto) 12.7 H Absolute Lymphs (auto) 0.99 Nucleated RBC % 0 Sodium 136 Potassium 4.4 Chloride 101 Carbon Dioxide 28.0 Anion Gap 7 BUN 26 H Creatinine 0.81 Estim Creat Clear Calc 34.83 Est GFR (MDRD) Af Amer 87 Est GFR (MDRD) Non-Af 72 BUN/Creatinine Ratio 32.1 H Glucose 85 Calcium 9.4 Troponin I High Sens 13 B-Natriuretic Peptide 581.9 H ABG Data ABG results: ABG 06/10/22 12:29 Specimen Type ART Sample Site R Radial pH 7.35 Bicarbonate Actual 31.4 H Total CO2 33 Base Excess 6 H O2 Saturation 95 ABG pCO2 56.6 H ABG pO2 83 Alec Test Positive Liter Flow 2.0 Radiography Diagnostic Testing: Clinical Impression(s) from Imaging Studies Chest X-Ray 06/10/22 12:53 IMPRESSION: Increasing pulmonary vascular congestion. New bibasilar pulmonary densities which may represent pneumonia and/or pulmonary edema. COPD. Electronically Signed: Jordan Kellogg MD at 13:24 EST , Brain CT 06/10/22 13:35 IMPRESSION: 1. No acute intracranial abnormality. 2. Stable senescent changes. Electronically Signed: Jordan Kellogg MD at 15:13 EST , Chest CTA 06/10/22 13:36 IMPRESSION: 1. No evidence of acute pulmonary embolism. 2. Pulmonary emphysema. 3. Interstitial pulmonary densities and bibasilar honeycombing suggestive of usual interstitial pneumonia/pulmonary fibrosis. Suspect superimposed pulmonary edema. 4. Small bilateral pleural effusions and calcific pleural plaquing. 5. Left ventricular hypertrophy Electronically Signed: Jordan Kellogg MD at 15:19 EST , Rhythm Strip Rhythm Strip: Sinus Rhythm Rate: 79 Ectopy: None EKG Initial EKG: Attestation: I personally reviewed and interpreted this EKG as follows: Interpretation: Sinus Rhythm Comments: Normal sinus rhythm at a rate of 79 bpm Possible left atrial enlargement Right axis Normal ST segments Normal intervals Discharge Plan Triage Chief Complaint: Shortness of Breath Other Complaint: Confusion ED Provider: Malini Brcue Dx/Rx/DC Orders Clinical Impression: Acute confusion, Community acquired pneumonia, Chronic respiratory acidosis Prescriptions: No Action levothyroxine 75 mcg Tablet 75 mcg PO DAILY metoprolol succinate 50 mg Tablet Extended Release 24 Hr 50 mg PO QPM lisinopril 20 mg Tablet 20 mg PO DAILY montelukast [Singulair] 10 mg Tablet 10 mg PO QHS clopidogrel 75 mg Tablet 75 mg PO DAILY hydrocodone-acetaminophen 5-325 mg tablet 1 tab PO Q6H PRN (Reason: Pain) lorazepam 2 mg tablet 2 mg PO TID oxybutynin chloride 5 mg tablet extended release 24hr 5 mg PO DAILY Primary Care Provider: Duncan Boateng Referrals: Duncan Boateng MD [Primary Care Provider] - Disposition Disposition: Acute Care [facility]
--- NOTE | 2022-06-10 16:08 | ED.RN ---
spoke with family member Any for update.
[2022-06-10] MEDS: MethylPREDNISolone 125 MG/2 ML Vial IV (16:12)
--- NOTE | 2022-06-10 16:16 | HP.PCM.HOS_ITS ---
HPI - General General Date of Admission: 06/10/22 Date of Service: 06/10/22 Chief Complaint: Confusion - ongoing for 3 days HPI Narrative ALONSO COLE, is a 82 F who presents with the above. Patient has past medical history of hypertension, anxiety disorder seen via squad with confusion and shortness of breath. Patient is a poor historian and history was taken from her daughter on phone. Patient lives with her son. She is usually alert oriented x3. She typically wears 3 L of oxygen. Her daughter went to see her today when patient stated that she felt confused and felt like maybe she had a stroke. She stated that this has been ongoing since Tuesday according to the patient. She also complains of shortness of breath. Denied any fever or chills or cough or sick contacts. Patient had admitted to having difficulty bringing up sputum. Her initial vitals in the ED showed blood pressure 174/72, heart rate 87, respiratory rate 18, temperature 98.1 F, oxygen sat was 100% on 3 L of oxygen. WBC 15.6, hemoglobin 12.3, platelets 497, ABG showed pH 7.35, PCO2 56.6, BMP was unremarkable except for BUN of 26, creatinine 0.81, troponin was 13, BNP up was 581.9 Admitting chest x-ray showed increasing pulmonary vascular congestion, new bibasilar pulmonary densities representing pneumonia or pulmonary edema. CT of the brain showed no acute intracranial abnormality. CTA of the chest was negative for acute PE, showed interstitial pneumonia/pulmonary fibrosis with superimposed pulmonary edema, small bilateral pleural effusion. [facility] Medical History COPD (chronic obstructive pulmonary disease) Former smoker Gluten intolerance Hypertension Smoker Stroke/cerebrovascular accident Home Medications levothyroxine 75 mcg tablet 75 mcg PO DAILY THYROID 06/05/21 [History Last Taken 06/09/22] lisinopril 20 mg tablet 20 mg PO DAILY BLOOD PRESSURE 06/05/21 [History Last Taken 06/09/22] metoprolol succinate 50 mg tablet,extended release 24 hr 50 mg PO QPM BLOOD PRESSURE 06/05/21 [History Last Taken 06/09/22 06:00] montelukast 10 mg tablet (Singulair) 10 mg PO QHS BREATHING 06/05/21 [History Last Taken 06/09/22] clopidogrel 75 mg tablet 75 mg PO DAILY BLOOD THINNER 09/07/21 [History Last Taken 06/09/22] hydrocodone-acetaminophen 5-325mg 5mg-325mg 1 tab PO Q6H PRN Pain 06/10/22 [History Last Taken 06/08/22] lorazepam 2 mg tablet 2 mg PO TID ANXIETY 06/10/22 [History Last Taken 06/09/22] oxybutynin chloride 5 mg tablet,extended release 24 hr 5 mg PO DAILY OVERACTIVE BLADDER 06/10/22 [History Last Taken 06/09/22] Allergy/AdvReac Type Severity Reaction Status Date / Time meperidine [From Demerol] Allergy Rash Verified 06/10/22 11:33 Family History Mother Hypertension Heart disease Father Hypertension Cancer Hx prostate CA. Other CVA (cerebral vascular accident) Surgical History History of total left hip replacement Hx of breast implants, bilateral Social History household members: other details: Son's girlfriend Smoking Status: Former smoker how long ago did patient quit smoking: Reports recently quit cigarette tobacco, prior heavy since youth. 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 substance use type: does not use ROS ROS Narrative Patient appeared intermittently confused Review of Systems ROS Unobtainable: due to encephalopathy Vital Signs Vital Signs Vital Signs: 06/10/22 11:28 06/10/22 11:35 06/10/22 12:13 Temperature 98.1 F Temperature Source Oral Pulse Rate 87 71 Respiratory Rate 18 25 H Respiratory Effort Normal Non-Labored Respiratory Depth Normal Respiratory Pattern Normal Blood Pressure 174/72 H Blood Pressure Mean 106 Pulse Ox 100 Oxygen Delivery Method Nasal Cannula Oxygen Flow Rate (L/min) 3 06/10/22 12:13 06/10/22 13:30 06/10/22 14:43 Temperature 98.1 F 96.8 F L Temperature Source Oral Temporal Pulse Rate 82 77 Respiratory Rate 24 H 18 Respiratory Effort Respiratory Depth Respiratory Pattern Blood Pressure 145/70 H 145/68 H Blood Pressure Mean 95 93 Pulse Ox 96 99 98 Oxygen Delivery Method Nasal Cannula Nasal Cannula Nasal Cannula Oxygen Flow Rate (L/min) 2 3 3 06/10/22 16:13 Temperature 98.3 F Temperature Source Temporal Pulse Rate 86 Respiratory Rate 18 Respiratory Effort Respiratory Depth Respiratory Pattern Blood Pressure 147/69 H Blood Pressure Mean 95 Pulse Ox 99 Oxygen Delivery Method Nasal Cannula Oxygen Flow Rate (L/min) 2 Weight Weight: 40.5 kg Body Mass Index (BMI) 16.3 Physical Exam Narrative Physical exam: General: Alert, Oriented x3, intermittently confused and tangential cooperative, on 3 L of oxygen with mild respiratory distress with use of accessory muscles of respiration HEENT: Atraumatic Oral: Moist Mucosa Neck: Supple Lungs: Diminished to auscultation especially the lung bases Cardiovascular: HS I+II, regular, no murmurs Abdomen: Bowel Sounds Present, Soft, Non Tender Extremities: Trace bilateral edema Skin: No rashes, No breakdown Neurological: Grossly intact Psych/Mental Status: Appropriate Results Lab / Micro Data Result Diagrams: 06/10/22 12:15 06/10/22 12:15 Labs: Laboratory Results - last 24 hr 06/10/22 12:15: WBC 15.6 H, RBC 4.24, Hgb 12.3, Hct 41.4, MCV 97.6, MCH 29.0, MCHC 29.7 L, RDW Std Deviation 51.2 H, RDW Coeff of María 14.1, Plt Count 497 H, MPV 9.2, Immature Gran % (Auto) 4.000 H, Neut % (Auto) 81.2 H, Lymph % (Auto) 6.3 L, [place] % (Auto) 7.6, Eos % (Auto) 0.6, Baso % (Auto) 0.3, Absolute Neuts (auto) 12.7 H, Absolute Lymphs (auto) 0.99, Nucleated RBC % 0 06/10/22 12:15: Sodium 136, Potassium 4.4, Chloride 101, Carbon Dioxide 28.0, Anion Gap 7, BUN 26 H, Creatinine 0.81, Estim Creat Clear Calc 34.83, Est GFR (MDRD) Af Amer 87, Est GFR (MDRD) Non-Af 72, BUN/Creatinine Ratio 32.1 H, Glucose 85, Calcium 9.4, Troponin I High Sens 13 06/10/22 12:15: B-Natriuretic Peptide 581.9 H Micro: Microbiology 06/10/22 12:15 Nasal Secretion SARS-CoV-2 & FLU Antigen (Rapid) - Final ABG Data ABG results: ABG 06/10/22 12:29 Specimen Type ART Sample Site R Radial pH 7.35 Bicarbonate Actual 31.4 H Total CO2 33 Base Excess 6 H O2 Saturation 95 ABG pCO2 56.6 H ABG pO2 83 Alec Test Positive Liter Flow 2.0 Rhythm Strip Rhythm Strip: Sinus Rhythm Rate: 79 Ectopy: None Radiology Impression Chest X-Ray 06/10/22 12:53 IMPRESSION: Increasing pulmonary vascular congestion. New bibasilar pulmonary densities which may represent pneumonia and/or pulmonary edema. COPD. Electronically Signed: Jordan Kellogg MD at 13:24 EST , Brain CT 06/10/22 13:35 IMPRESSION: 1. No acute intracranial abnormality. 2. Stable senescent changes. Electronically Signed: Jordan Kellogg MD at 15:13 EST , Chest CTA 06/10/22 13:36 IMPRESSION: 1. No evidence of acute pulmonary embolism. 2. Pulmonary emphysema. 3. Interstitial pulmonary densities and bibasilar honeycombing suggestive of usual interstitial pneumonia/pulmonary fibrosis. Suspect superimposed pulmonary edema. 4. Small bilateral pleural effusions and calcific pleural plaquing. 5. Left ventricular hypertrophy Electronically Signed: Jordan Kellogg MD at 15:19 EST , Assessment & Plan Assessment/Plan (1) Acute confusion: (2) Community acquired pneumonia: PLAN: Plan 1. Acute metabolic encephalopathy likely secondary to probable acute pneumonia/acute exacerbation of heart failure Patient is reportedly usually alert oriented x3; intermittently confused We will also need to rule out acute CVA with MRI Continue to monitor mentation 2. Probable acute interstitial pneumonia, seen on chest x-ray/CTA of the chest We will start empirically on Levaquin; check sputum culture Repeat chest x-ray in a.m. 3. Probable acute exacerbation of heart failure with preserved EF, EF 55% Admitting BNP of more than 600 Patient clinically does not look fluid overloaded Chest x-ray and CT of the chest suggestive of pulmonary edema We will start on Lasix 20 mg IV twice daily, repeat BNP as well as CXR In a.m. 4. Probable acute CVA, patient with no specific neurodeficits except for confusion We will get an MRI of the brain first to rule out acute CVA Continue on Plavix for now 5. Chronic hypoxic respiratory failure secondary to COPD, not in acute exacerbation, Will continue with prn breathing treatments, continue on oxygen 6. Anxiety disorder, continue on lorazepam 7. Hypertension, continue metoprolol and lisinopril 8. Hypothyroidism, continue on synthroid 9. DVT PPx- Lovenox SC Total time spent: 80 minutes of which more > 50% was spent in reviewing patient's chart, laboratory investigations, imaging, discussing with emergency physician, calling patient's daughter on phone for history, discussing plan of care with daughter and physical examining patient. Charges/Coding Visit Charges Inpatient E&M: 17779 Init Hosp L3
[2022-06-10] MEDS: Ceftriaxone 1 GM/50 ML BAG IV (16:41)
--- NOTE | 2022-06-10 17:03 | ED.RN ---
CALLED DAUGHTER BRETT TO INFORM OF ADMISSION.
[2022-06-10] MEDS: Furosemide 40 MG/4 ML Vial IV (17:32)
[2022-06-10] MEDS: 0.9% Saline Lock 10 ML Syringe IV (17:33)
--- NOTE | 2022-06-10 18:12 | MRI_ITS ---
STUDY: MRI BRAIN WITHOUT CONTRAST REASON FOR EXAM: Female, 82 years old. Confusion, neurodeficit TECHNIQUE: MRI examination of brain obtained with standard protocol including multiplanar multiecho noncontrast imaging. Contrast: No contrast administered. COMPARISON: No relevant prior imaging available for comparison. HEMISPHERES, CEREBELLUM AND BRAINSTEM: 1. The cerebral parenchyma, ventricular system, subarachnoid spaces have normal configuration and density. There is a normal gyral pattern. There is normal ruiz/white differentiation. No midline shift.. 2. Diffuse involutional change and chronic microvascular deep white matter disease. No areas of fluid restriction or acute ischemia. No evidence of hemorrhage or hemosiderin deposition. There is a single punctate area of hemosiderin deposition within the RIGHT lenticular nucleus consistent with a remote microbleed versus small punctate calcification. 3. No intraparenchymal mass, hemorrhage, or acute territorial infarct. 4. The cerebellum, brainstem, basilar and suprasellar cisterns have normal appearance. No Chiari malformation. PITUITARY: Infundibulum and pituitary have normal configuration. Midline structures appear normal. CSF SPACES: Appropriate for age. No hydrocephalus. Basal cisterns are patent. VESSELS: 1. There are normal flow voids noted in the great vessels at the skull base ORBITS AND PARANASAL SINUSES: 1. Both globes, extraocular muscles, optic nerves and retrobulbar fat appear unremarkable. 2. Paranasal sinuses are clear. BONY ELEMENTS: Bony elements of the cranial vault, facial skeleton and skull base have normal appearance. SCALP AND SOFT TISSUES: Normal appearance of the soft tissues of the scalp and the visualized face OTHER: None MRI/Brain without Contrast IMPRESSION: 1. Diffuse involutional change and chronic microvascular deep white matter disease. 2. No mass, hemorrhage, or acute territorial infarct. 3. No radiographically significant sinus disease. Electronically Signed: Andres Huggins MD at 19:52 EST ,
[2022-06-10] MEDS: LORazepam 1 MG Tablet 2 MG PO (23:15)
[2022-06-10] MEDS: Montelukast 10 MG Tablet PO (23:15)
[2022-06-11] VITALS (11 sets, daily range): BP systolic 91–123; BP diastolic 57–69; PULSE 67–83; RESP 14–18; TEMP 36.6–37.1; O2SAT 94–100; BMI 15.5
[2022-06-11 06:07] LABS: Hematocrit 37.1 % (37-47); Hemoglobin 11.7 g/dL (12.0-15.0); Mean Corp Hgb Conc 31.5 g/dL (32-36); Mean Corpuscular Hgb 28.7 pg (27.0-32.0); Mean Corpuscular Volume 91.2 fL (81-99); Mean Platelet Vol. 9.2 fl (6.2-12.0); POSITIVE COUNT YES; POSITIVE MORPHOLOGY YES; Platelet Count 529 K/mm3 (150-450); RBC Distribution Width SD 47.3 fl (35.1-43.9); Red Blood Count 4.07 M/mm3 (4.2-5.4)
[2022-06-11 06:08] LABS: Differential Indicated MANUAL DIFF
[2022-06-11] MEDS: Levothyroxine 75 MCG Tablet PO (06:14)
[2022-06-11] MEDS: LORazepam 1 MG Tablet 2 MG PO ×3 (06:14→22:35)
[2022-06-11 06:44] LABS: Metamyelocyte 2 % (0-1); Neutrophil-Band 2 % (0-5); Neutrophil-Segmented 86 % (47-70); Total Cells Counted 100 (MANUAL DIFF)
[2022-06-11 06:45] LABS: ALB/GLOB Ratio 0.6 RATIO (0.9-2.4); AST(SGOT) 14 U/L (15-37); Alanine Aminotransfer ALT/SGPT 13 U/L (13-56); Albumin, Serum 2.4 g/dL (3.2-5.0); Alkaline Phosphatase 153 U/L (45-117); Anion Gap 6 (5-15); BUN 36 mg/dL (7-18); BUN/Creat Ratio 30.3 RATIO (10-20); Calcium,Total 9.1 mg/dL (8.5-10.1); Chloride 94 mmol/L (98-107); Creatinine, Serum 1.19 mg/dL (0.55-1.02); EST Glomerular Filtration Rate 46 mL/min (>60); Est Glom Filt Rate - Afr Amer 56 mL/min (>60); Estimated Creatinine Clearance 22.53 ml/min; Globulin 3.8 g/dL (2.2-4.2); Glucose 168 mg/dL (74-106); Lymphocyte 6 % (19-41); Monocyte 2 % (0-10); Myelocyte 2 % (0-0); Platelet Estimate MOD INC (ADEQ); Potassium 4.3 mmol/L (3.5-5.1); Protein, Total 6.2 g/dL (6.4-8.2); Red Cell Morphology NORM C+C NORMAL (NORM C&C); Sodium Level 135 mmol/L (136-145)
[2022-06-11 06:46] LABS: Absolute Lymphocyte Count 0.78 X10^3/uL (0.83-4.51); Absolute Neutrophil Count 11.4 X10^3/uL (2.0-7.7); Lymphocyte # 0.78 X10^3/ul (0.83-4.51); Neutrophil # 11.41 X10^3/uL (2.7-7.7)
[2022-06-11] MEDS: Ipratropium/Albuterol Sulfate 3 ML AMPUL.NEB INHALATION ×3 (07:25→19:05)
[2022-06-11] MEDS: 0.9% Saline Lock 10 ML Syringe IV (11:15)
[2022-06-11] MEDS: levoFLOXacin IV 750 MG/150 ML BAG 100 MG IV (11:16)
[2022-06-11] MEDS: Tolterodine Tartrate 2 MG CAP.SA PO (11:16)
[2022-06-11] MEDS: Clopidogrel Bisulfate 75 MG Tablet PO (11:16)
[2022-06-11] MEDS: Furosemide 40 MG/4 ML Vial 20 MG IV ×2 (11:19→18:58)
--- NOTE | 2022-06-11 12:15 | CASEMGMT ---
RN JHON Face to Face with patient for initial transition planning/care coordination assessment. RN CM introduced self and role at [facility]. Patient lying in bed, alert and oriented. Patient willing to participate in assessment and is able to answer all questions appropriately. Care providers, pharmacy, and demographics verified. Patient wishes to discharge home, denies need for home health at this time. Patient states she has no further needs or concerns at this time. CM to follow for discharge planning needs that may arise. PCP: [facility] Specialists: none Preferred Pharmacy: [facility] Insurance: [employer] [facility] Prescription Benefit: yes Living Will/HPOA: yes, ZeeAny daughter LNOK: daughter, son Living Arrangements: Patient lives with son and son's girlfriend in a single story home with no steps to enter the home. Patient states she is indenpendent at home. Transportation: daughter DME/HHC: Patient has shower chair, BSC, walker, wheelhchair, nebulizer, pulse ox, [facility] Patient has been to [facility]. Patient has had [facility] in the past. Disposition Plan: Patient to discharge home with family support and follow-up plans in place. Selma PIERCE, RN, CM
--- NOTE | 2022-06-11 12:43 | NURSING ---
daughter called and was updated with poc
[2022-06-11 12:45] LABS: Pathologist Review Reviewed
[2022-06-11] MEDS: Ensure Plus High Protein 120 ML LIQUID PO (15:04)
--- NOTE | 2022-06-11 16:11 | CASEMGMT ---
VERENA FERREIRA called daughter to confirm if patient has portable tank at home. Per daughter, patient has portable oxygen tank and will bring in for when patient discharges.
--- NOTE | 2022-06-11 19:53 | PN.HOSP_ITS ---
Reason for Visit Reason for Visit: Diagnoses Pneumonia, unspecified organism (06/10/22) Disorientation, unspecified (06/10/22) Subjective Subjective Patient was seen and examined today, she still appears to be confused, MRI did not show an acute stroke. Patient continues to be given IV Lasix, at this time, patient is on room air, blood pressure is trending low however, at this time, I will stop the patient's Lasix. Objective Data Objective Data Vital Signs: Vital Signs Temp Pulse Resp BP Pulse Ox O2 Del Method O2 Flow Rate 98.8 F 72 14 97/57 L 100 Room Air 3 06/11/22 16:19 06/11/22 16:19 06/11/22 16:19 06/11/22 16:19 06/11/22 16:19 06/11/22 16:19 06/11/22 11:12 Oxygen Flow Rate (L/min) 3 Oxygen Delivery Method Room Air Weight: 38.5 kg Body Mass Index (BMI) 15.5 Intake & Output: Intake and Output for Last 24 Hours 06/09/22 06/10/22 06/11/22 23:59 23:59 23:59 Intake Total 545 / 765 1080 / 1080 Output Total 650 / 1050 975 / 975 Balance -105 / -285 105 / 105 Medical Nutrition Assessment Dietitian: Malnutrition Criteria Met Start: 06/11/22 13:01 Freq: Status: Active Protocol: Document 06/11/22 13:01 (Rec: 06/11/22 13:01 [id number]) Nutrition Malnutrition Evidence of Malnutrition Exists Yes Malnutrition (severe): Chronic Evidenced By Suboptimal Energy Intake ( Severe),Physical Changes ( Severe) Clinical Problem Chronic Disease or Condition Related Malnutrition Etiology chronic, severe malnutrition related to inadequate energy intake Signs/Symptoms as evidenced by estimated PO intake meeting <75% of estimated energy needs > 3 months; severe muscle wasting and fat loss evident per physical exam in orbital, clavicle, temporal and acromion areas; BMI 15.5 Status Active Problem Recommendation Dietitian Recommendations/Changes will adjust diet to regular given signs/symptoms of malnutrition; will add ensure plus high protein 120mL 4x/day w/ medpass for additional calories/protein if consumed Lab / Micro Data Result Diagrams: 06/11/22 05:36 06/11/22 05:36 Labs: Laboratory Results - last 24 hr 06/11/22 05:36: WBC 13.0 H, RBC 4.07 L, Hgb 11.7 L, Hct 37.1, MCV 91.2 D, MCH 28.7, MCHC 31.5 L D, RDW Std Deviation 47.3 H, RDW Coeff of María 14.0, Plt Count 529 H, MPV 9.2, Neut % (Auto) Not Reportable, Absolute Neuts (auto) 11.4 H, Absolute Lymphs (auto) 0.78 L, Total Counted 100, Neutrophils % (Manual) 86 H, Band Neutrophils % 2, Lymphocytes % (Manual) 6 L, Monocytes % (Manual) 2, Metamyelocytes % 2 H, Myelocytes % 2 H, Diff Path Review Reviewed, Platelet Estimate MOD INC, RBC Morphology NORM C+C 06/11/22 05:36: Sodium 135 L, Potassium 4.3, Chloride 94 L, Carbon Dioxide 35.0 H, Anion Gap 6, BUN 36 H, Creatinine 1.19 H, Estim Creat Clear Calc 22.53, Est GFR (MDRD) Af Amer 56 L, Est GFR (MDRD) Non-Af 46 L, BUN/Creatinine Ratio 30.3 H , Glucose 168 H, Calcium 9.1, Total Bilirubin 0.20, AST 14 L, ALT 13, Alkaline Phosphatase 153 H, Total Protein 6.2 L, Albumin 2.4 L, Globulin 3.8, Albumin/Globulin Ratio 0.6 L 06/11/22 05:36: B-Natriuretic Peptide 527.0 H Micro: Microbiology 06/10/22 12:15 Nasal Secretion SARS-CoV-2 & FLU Antigen (Rapid) - Final Radiography Diagnostic Testing: Radiology Impression Brain MRI 06/10/22 18:12 IMPRESSION: 1. Diffuse involutional change and chronic microvascular deep white matter disease. 2. No mass, hemorrhage, or acute territorial infarct. 3. No radiographically significant sinus disease. Electronically Signed: Andres Huggins MD at 19:52 EST , Rhythm Strip Rhythm Strip: Sinus Rhythm Rate: 79 Ectopy: None Physical Exam Const alert Constitutional Narrative: Patient appears frail and older than her stated age Orientation / Consciousness: confused HEENT head/scalp atraumatic and moist oral mucous membranes Neck supple and no JVD Resp normal respiratory effort, no retractions and no use of accessory muscles Resp Narrative: Decreased breath sounds are noted bilaterally Cardio regular rate, regular rhythm, S1 normal heart sound, S2 normal heart sound and no murmurs GI normal to inspection, nondistended, normoactive bowel sounds, soft to palpation, non-tender and non-distended Neuro CN's II-XII intact bilaterally and moves all extremities Sensorium / Orientation: alert Assessment & Plan Assessment/Plan (1) Community acquired pneumonia: PLAN: Plan 1. Acute metabolic encephalopathy-secondary to community-acquired pneumonia and exacerbation of diastolic congestive heart failure-patient's Lasix will be stopped due to low blood pressure, she will be maintained on IV antibiotics for now, chest x-ray will be repeated tomorrow #2 community-acquired pneumonia-again chest x-ray will be repeated tomorrow, continue antibiotics #3 acute exacerbation of diastolic heart failure-I have elected to stop the patient's IV Lasix due to low blood pressure #4 chronic hypoxic respiratory failure secondary to COPD-patient remains on nasal cannula O2 #5 essential hypertension-continue present medications #6 chronic anxiety-patient is on Ativan #7 hypothyroidism-patient is on Synthroid Total clinical time spent by myself addressing the patient's medical problems, reviewing all of her data, and collaborating with the patient's care team: 35 minutes Charges/Coding Visit Charges Inpatient E&M: 76913 Subs Hosp L2
[2022-06-11] MEDS: Metoprolol(XL)Succ 50 MG Tablet PO (22:34)
[2022-06-11] MEDS: Montelukast 10 MG Tablet PO (22:34)
[2022-06-12] VITALS (11 sets, daily range): BP systolic 93–137; BP diastolic 64–77; PULSE 69–82; RESP 16–20; TEMP 36.9–37.2; O2SAT 93–98; BMI 15.5
[2022-06-12] MEDS: Levothyroxine 75 MCG Tablet PO (05:28)
--- NOTE | 2022-06-12 05:30 | RAD_ITS ---
STUDY: X-RAY CHEST REASON FOR EXAM: Female, 82 years old. Abnormal chest x-ray. TECHNIQUE: Single frontal view of the chest. COMPARISON: June 10, 2022. FINDINGS: Hyperinflation with stable mild diffuse interstitial pattern. Stable atelectasis of the left base. No focal consolidation. There is no demonstrated pleural abnormality. Cardiomegaly with aortic tortuosity and calcification unchanged. Normal mediastinum and william. Normal visualized pulmonary arteries. Normal visualized ribs, clavicles, and shoulders. Stable calcified breast implants and gastrostomy tube. There is no demonstrated abnormality of the visualized soft tissue structures of the upper abdomen. RAD/Chest 1 View (Portable) IMPRESSION: Stable cardiomegaly, aortic tortuosity with calcification and mild diffuse interstitial pattern. No acute finding. Electronically Signed: Luis Antonio Grande, at 10:37 EST ,
[2022-06-12] MEDS: Ipratropium/Albuterol Sulfate 3 ML AMPUL.NEB INHALATION ×4 (07:10→19:34)
[2022-06-12] MEDS: Tolterodine Tartrate 2 MG CAP.SA PO (10:39)
[2022-06-12] MEDS: Lisinopril 20 MG Tablet PO (10:39)
[2022-06-12] MEDS: Clopidogrel Bisulfate 75 MG Tablet PO (10:39)
[2022-06-12] MEDS: Ensure Plus High Protein 120 ML LIQUID PO ×2 (13:15→17:27)
[2022-06-12] MEDS: LORazepam 1 MG Tablet 2 MG PO ×2 (13:15→21:51)
[2022-06-12] MEDS: Amox/Clavulanate 875 MG Tablet PO ×2 (13:18→21:58)
--- NOTE | 2022-06-12 16:41 | PCM.PN.HOSP ---
Reason for Visit Reason for Visit: Diagnoses Pneumonia, unspecified organism (06/10/22) Disorientation, unspecified (06/10/22) Subjective Subjective Patient was seen and examined today, earlier today she had hallucinations in the room, I talked with her daughter by phone today, patient has no history of dementia. I had an arterial blood gas performed, patient had a PCO2 of 56 and a PO2 of 83 with a pH of 7.35 on 2 L. Patient is chronically on Ativan at home according to the daughter and she has taken it for many years, the only other medication that would possibly cause a problem with the patient's mentation would be [place], I am not sure if she is asking for the [place]. Patient was not hallucinating at the time of my examination today. Patient's chest x-ray reveals stable cardiomegaly and mild diffuse interstitial pattern. There were no acute findings. Objective Data Objective Data Vital Signs: Vital Signs Temp Pulse Resp BP Pulse Ox O2 Del Method O2 Flow Rate 98.5 F 82 18 93/70 96 Nasal Cannula 3 06/12/22 10:28 06/12/22 15:33 06/12/22 15:33 06/12/22 10:28 06/12/22 15:33 06/12/22 15:33 06/12/22 15:33 Oxygen Flow Rate (L/min) 3 Oxygen Delivery Method Nasal Cannula Weight: 38.5 kg Body Mass Index (BMI) 15.5 Intake & Output: Intake and Output for Last 24 Hours 06/10/22 06/11/22 06/12/22 23:59 23:59 23:59 Intake Total 545 / 765 1080 / 1180 600 / 600 Output Total 650 / 1050 975 / 1275 800 / 800 Balance -105 / -285 105 / -95 -200 / -200 Medical Nutrition Assessment Dietitian: Malnutrition Criteria Met Start: 06/11/22 13:01 Freq: Status: Active Protocol: Document 06/11/22 13:01 (Rec: 06/11/22 13:01 [id number]) Nutrition Malnutrition Evidence of Malnutrition Exists Yes Malnutrition (severe): Chronic Evidenced By Suboptimal Energy Intake ( Severe),Physical Changes ( Severe) Clinical Problem Chronic Disease or Condition Related Malnutrition Etiology chronic, severe malnutrition related to inadequate energy intake Signs/Symptoms as evidenced by estimated PO intake meeting <75% of estimated energy needs > 3 months; severe muscle wasting and fat loss evident per physical exam in orbital, clavicle, temporal and acromion areas; BMI 15.5 Status Active Problem Recommendation Dietitian Recommendations/Changes will adjust diet to regular given signs/symptoms of malnutrition; will add ensure plus high protein 120mL 4x/day w/ medpass for additional calories/protein if consumed Lab / Micro Data Result Diagrams: 06/11/22 05:36 06/11/22 05:36 Micro: Microbiology 06/10/22 12:15 Nasal Secretion SARS-CoV-2 & FLU Antigen (Rapid) - Final Radiography Diagnostic Testing: Radiology Impression Chest X-Ray 06/12/22 05:30 IMPRESSION: Stable cardiomegaly, aortic tortuosity with calcification and mild diffuse interstitial pattern. No acute finding. Electronically Signed: Luis Antonio Grande, at 10:37 EST Reading Location ID and State: [id number] , Service support , Rhythm Strip Rhythm Strip: Sinus Rhythm Rate: 79 Ectopy: None Physical Exam Narrative alert Constitutional Narrative: Patient appears frail and older than her stated age Orientation / Consciousness: confused HEENT head/scalp atraumatic and moist oral mucous membranes Neck supple and no JVD Resp normal respiratory effort, no retractions and no use of accessory muscles Resp Narrative: Decreased breath sounds are noted bilaterally Cardio regular rate, regular rhythm, S1 normal heart sound, S2 normal heart sound and no murmurs GI normal to inspection, nondistended, normoactive bowel sounds, soft to palpation, non-tender and non-distended Neuro CN's II-XII intact bilaterally and moves all extremities Sensorium / Orientation: alert Assessment & Plan Assessment/Plan (1) Community acquired pneumonia: PLAN: Plan 1. Acute metabolic encephalopathy-secondary to community-acquired pneumonia and exacerbation of diastolic congestive heart failure-I am not absolutely sure what caused the patient to have hallucinations today, I have decided to take her off of Levaquin and place her on Augmentin, she is off Lasix right now and I do not think she needs to go back on it. #2 community-acquired pneumonia-patient is now on Augmentin #3 acute exacerbation of diastolic heart failure-resolved at this time #4 chronic hypoxic respiratory failure secondary to COPD-patient remains on nasal cannula O2 #5 essential hypertension-continue present medications #6 chronic anxiety-patient is on Ativan #7 hypothyroidism-patient is on Synthroid Total clinical time spent by myself addressing the patient's medical problems, reviewing all of her data, and collaborating with the patient's care team: 37 minutes Charges/Coding Visit Charges Inpatient E&M: 05475 Subs Hosp L2
[2022-06-12] MEDS: Menthol/Lanolin/Calamine/Znox 113 GM Tube 1 APPLIC TOPICAL ×2 (16:46→22:00)
[2022-06-12] MEDS: Montelukast 10 MG Tablet PO (21:52)
[2022-06-12] MEDS: Metoprolol(XL)Succ 50 MG Tablet PO (22:00)
--- NOTE | 2022-06-12 22:35 | NURSING ---
Barcode was not scanning for patient's dose of Augmentin this evening. Verified with Corazon Arreola RN for a manual entry. This RN also clarified situation with pharmacy and they reentered the barcode into the system so next time it is scanned it should work. This RN also filled out barcode scanning issues log.
[2022-06-13] VITALS (9 sets, daily range): BP systolic 104–118; BP diastolic 60–69; PULSE 62–72; RESP 14–18; TEMP 36.7–36.9; O2SAT 90–99
[2022-06-13] MEDS: Levothyroxine 75 MCG Tablet PO (06:52)
[2022-06-13] MEDS: LORazepam 1 MG Tablet 2 MG PO ×2 (06:52→13:56)
[2022-06-13] MEDS: Ipratropium/Albuterol Sulfate 3 ML AMPUL.NEB INHALATION ×3 (06:59→15:19)
--- NOTE | 2022-06-13 07:50 | EKG12_ITS ---
Test Reason : RHYTHM CHANGE Blood Pressure : / mmHG Vent. Rate : 070 BPM Atrial Rate : 070 BPM P-R Int : 200 ms QRS Dur : 082 ms QT Int : 368 ms P-R-T Axes : 082 078 062 degrees QTc Int : 397 ms Sinus rhythm with frequent Premature ventricular complexes Septal infarct (cited on or before 07-SEP-2021) Abnormal ECG When compared with ECG of 10-JUN-2022 12:04, Premature ventricular complexes are now Present Confirmed by DAVID HERNANDEZ, ISHAAN ([id number]), dictionary editor AUGUSTINE POWELL ([id number]) on 06/15/2022 11:08:19 AM Referred By: BOB Confirmed By:ISHAAN HERNANDEZ MD
[2022-06-13] MEDS: Tolterodine Tartrate 2 MG CAP.SA PO (09:19)
[2022-06-13] MEDS: Amox/Clavulanate 875 MG Tablet PO ×2 (09:19→17:21)
[2022-06-13] MEDS: Menthol/Lanolin/Calamine/Znox 113 GM Tube 1 APPLIC TOPICAL (09:19)
[2022-06-13] MEDS: Ensure Plus High Protein 120 ML LIQUID PO ×2 (09:19→13:56)
[2022-06-13] MEDS: Clopidogrel Bisulfate 75 MG Tablet PO (11:18)
[2022-06-13 15:20] LABS: Ammonia < 10.0 umol/L (11-32)
--- NOTE | 2022-06-13 17:14 | DCINST_ITS ---
Discharge Instructions Diet Discharge Diet: No restrictions Activity Discharge Activity: Return to Normal Activity Weight Bearing Status: Full weight bearing Follow Up Care Test Results: Test results from this visit will be discussed in further detail at your follow- up appointment, if applicable. Discharge Plan Admission Admit Date/Time: 06/10/22 16:00 Primary Reason for Your Visit: pneumonia Attending Provider: Harley Perez Primary Care Provider: Duncan Boateng Consulting Providers: Felisha Goodman Discharge Orders/Prescriptions Prescriptions: New amoxicillin-pot clavulanate 875-125 mg Tablet 875 mg PO BID Qty: 10 0RF Rx Instructions: start 06/14/22, take with food Continued levothyroxine 75 mcg Tablet 75 mcg PO DAILY metoprolol succinate 50 mg Tablet Extended Release 24 Hr 50 mg PO QPM lisinopril 20 mg Tablet 20 mg PO DAILY montelukast [Singulair] 10 mg Tablet 10 mg PO QHS clopidogrel 75 mg Tablet 75 mg PO DAILY hydrocodone-acetaminophen 5-325 mg tablet 1 tab PO Q6H PRN (Reason: Pain) lorazepam 2 mg tablet 2 mg PO TID oxybutynin chloride 5 mg tablet extended release 24hr 5 mg PO DAILY Referrals / Follow Up: Duncan Boateng MD [Primary Care Provider] - Within 2 Weeks Disposition Disposition (needs filled in before D/C Order can be placed): Home, Self Care
--- NOTE | 2022-06-13 17:17 | DS.PCM_ITS ---
Providers Date of Admission: 06/10/22 Date of Discharge: 06/13/22 Primary Care Physician: Dr. Duncan Boateng MD Reason For Visit: AMS Diagnosis Discharge Diagnosis (1) Community acquired pneumonia: Status: Acute Code(s): J18.9 - Pneumonia, unspecified organism Plan 1. Acute metabolic encephalopathy-secondary to community-acquired pneumonia and exacerbation of diastolic congestive heart failure-I am not absolutely sure what caused the patient to have hallucinations today, I have decided to take her off of Levaquin and place her on Augmentin, she is off Lasix right now and I do not think she needs to go back on it. #2 community-acquired pneumonia-patient is now on Augmentin #3 acute exacerbation of diastolic heart failure-resolved at this time #4 chronic hypoxic respiratory failure secondary to COPD-patient remains on nasal cannula O2 #5 essential hypertension-continue present medications #6 chronic anxiety-patient is on Ativan #7 hypothyroidism-patient is on Synthroid Total clinical time spent by myself addressing the patient's medical problems, reviewing all of her data, and collaborating with the patient's care team: 37 minutes Medications at Discharge Home Medications levothyroxine 75 mcg tablet 75 mcg PO DAILY THYROID 06/05/21 lisinopril 20 mg tablet 20 mg PO DAILY BLOOD PRESSURE 06/05/21 metoprolol succinate 50 mg tablet,extended release 24 hr 50 mg PO QPM BLOOD PRESSURE 06/05/21 montelukast 10 mg tablet (Singulair) 10 mg PO QHS BREATHING 06/05/21 clopidogrel 75 mg tablet 75 mg PO DAILY BLOOD THINNER 09/07/21 hydrocodone-acetaminophen 5-325mg 5mg-325mg 1 tab PO Q6H PRN Pain 06/10/22 lorazepam 2 mg tablet 2 mg PO TID ANXIETY 06/10/22 oxybutynin chloride 5 mg tablet,extended release 24 hr 5 mg PO DAILY OVERACTIVE BLADDER 06/10/22 amoxicillin 875 mg-potassium clavulanate 125 mg tablet 875 mg PO BID #10 tabs 06/13/22 Hospital Course Operations None Procedures None Summary of Care Provided Minutes Spent on Discharge: 32 Hospital Course: This 82-year-old white female was seen in the emergency room at [facility] with a chief complaint of shortness of breath, patient was on oxygen at nighttime only at 2 and half liters at baseline. When the squad transported the patient, she was 83% on 3 L when they arrived to pick her up to bring her to the emergency room. Patient denied any fever, she did have increas ed cough. Patient lives with her son, it was stated that the patient had been confused the night before and and was difficult to understand. Work-up in the emergency room included labs which showed an elevated white blood cell count of 15.6, BUN was minimally elevated at 26, patient's beta nitric peptide was elevated at 581, arterial blood gases on 2 L showed a pH of 7.35 with a P CO2 of 56 and a PO2 of 83. Patient's chest x-ray showed increased pulmonary vascular congestion and new bibasilar pulmonary densities which might represent pneumonia and/or pulmonary edema along with COPD. Patient was admitted to PCU and she was treated for congestive heart failure and community-acquired pneumonia with IV antibiotics and IV Lasix, during her hospitalization, patient's mental status at times appeared confused and she was hallucinating, I had discussions with the patient's daughter who was unaware of the patient's baseline at home due to the fact she lives with her son. Daughter stated that the son had mental issues and she did not know if the patient had instances of hallucinations at home on a routine basis. Labs were obtained to rule out any major reasons for why the patient had periods of confusion, no explanation was found and it was felt that the patient's confusion could have been due to her community-acquired pneumonia and hypoxia. At the time of discharge, patient required oxygen at 3 L during rest and ambulation, and a new oxygen prescription was filled out for the patient due to the fact that she only had a prescription for oxygen for usage at night. Patient was expected to use the oxygen on ambulation within the home, at rest within the home, and outside the home during normal activities. On 06/13/2022, patient was seen and examined: On examination she appeared older than her stated age, she appeared frail, she does not appear to be in any distress. Vital signs as documented. Skin warm and dry and without overt rashes. Neck without JVD, thyroid appears normal, trachea is midline, neck is supple. Lungs clear, decreased breath sounds are noted bilateral. Heart exam notable for regular rhythm, normal sounds and absence of murmurs, rubs or gallops. Abdomen unremarkable and without evidence of organomegaly, masses, or abdominal aortic enlargement, bowel sounds are present in all 4 quadrants, no abdominal tenderness was noted. Extremities nonedematous, no cyanosis was noted, no clubbing was noted. Neuro: Cranial nerves II through XII are grossly intact, no focal motor deficits were noted, sensation to light touch and pinprick is intact, motor exam 5/5 throughout. Psych: Patient is alert and oriented x3, she does not appear anxious or depressed, she does not appear agitated. On 06/13/2022, patient was seen and examined and felt to be in stable condition for discharge home Medical Records Data Medical Nutrition Assessment Dietitian: Malnutrition Criteria Met Start: 06/11/22 13:01 Freq: Status: Active Protocol: Document 06/11/22 13:01 (Rec: 06/11/22 13:01 AG [id number]) Nutrition Malnutrition Evidence of Malnutrition Exists Yes Malnutrition (severe): Chronic Evidenced By Suboptimal Energy Intake ( Severe),Physical Changes ( Severe) Clinical Problem Chronic Disease or Condition Related Malnutrition Etiology chronic, severe malnutrition related to inadequate energy intake Signs/Symptoms as evidenced by estimated PO intake meeting <75% of estimated energy needs > 3 months; severe muscle wasting and fat loss evident per physical exam in orbital, clavicle, temporal and acromion areas; BMI 15.5 Status Active Problem Recommendation Dietitian Recommendations/Changes will adjust diet to regular given signs/symptoms of malnutrition; will add ensure plus high protein 120mL 4x/day w/ medpass for additional calories/protein if consumed Weight / BMI Weight Weight: 38.5 kg Body Mass Index (BMI) 15.5 ABG / Lab / Microbiology Data Result Diagrams: 06/11/22 05:36 06/11/22 05:36 Laboratory: Laboratory Results - last 24 hr 06/13/22 14:30: Ammonia < 10.0 L Microbiology: Microbiology 06/10/22 12:15 Nasal Secretion SARS-CoV-2 & FLU Antigen (Rapid) - Final D/C Instructions Discharge Diet: No restrictions Weight Bearing Status: Full weight bearing Meaningful Use Info Meaningful Use Diagnoses (Choose all that apply): None applicable Discharge Plan Admission Admit Date/Time: 06/10/22 16:00 Primary Reason for Your Visit: pneumonia Attending Provider: Harley Perez Primary Care Provider: Duncan Boateng Consulting Providers: [place] Discharge Orders/Prescriptions Prescriptions: New amoxicillin-pot clavulanate 875-125 mg Tablet 875 mg PO BID Qty: 10 0RF Rx Instructions: start 06/14/22, take with food Continued levothyroxine 75 mcg Tablet 75 mcg PO DAILY metoprolol succinate 50 mg Tablet Extended Release 24 Hr 50 mg PO QPM lisinopril 20 mg Tablet 20 mg PO DAILY montelukast [Singulair] 10 mg Tablet 10 mg PO QHS clopidogrel 75 mg Tablet 75 mg PO DAILY hydrocodone-acetaminophen 5-325 mg tablet 1 tab PO Q6H PRN (Reason: Pain) lorazepam 2 mg tablet 2 mg PO TID oxybutynin chloride 5 mg tablet extended release 24hr 5 mg PO DAILY Referrals / Follow Up: Duncan Boateng MD [Primary Care Provider] - Within 2 Weeks Disposition Disposition (needs filled in before D/C Order can be placed): Home, Self Care Charges/Coding Visit Charges Inpatient E&M: 13421 Disch Hosp >30min
== END 2022-06-13 18:47 | disposition home or self-care (01) | DRG 193 ==
LOC: ED 16:14 → PCU 16:21
PROVIDERS: Admitting Provider Internal Medicine; Emergency Provider Emergency Medicine; PCP Family Medicine; Visit Provider Internal Medicine
DX: J18.9 Pneumonia, unspecified organism (principal); G93.41 Metabolic encephalopathy; I50.31 Acute diastolic (congestive) heart failure; J96.11 Chronic respiratory failure with hypoxia; I11.0 Hypertensive heart disease with heart failure; J44.9 Chronic obstructive pulmonary disease, unspecified; E03.9 Hypothyroidism, unspecified; F41.9 Anxiety disorder, unspecified; Z99.81 Dependence on supplemental oxygen; Z79.02 Long term (current) use of antithrombotics/antiplatelets; Z79.899 Other long term (current) drug therapy; Z86.73 Personal history of transient ischemic attack (TIA), and cerebral infarction without residual deficits; Z87.891 Personal history of nicotine dependence
CPT/HCPCS: 36415; 36600; 70450; 70551; 71045; 71275; 80048; 80053; 82140; 82803; 83880; 84484; 85025; 87428; 93005; 94640; 94668; 97802; 99252; 99285; J7050; A4216; G0463; J1940

== ENCOUNTER → 2023-03-15 | Outpatient (CLI) | payer MEDICARE, SELFPAY ==
--- NOTE | 2023-03-15 09:24 | US_ITS ---
STUDY: ABDOMINAL ULTRASOUND REASON FOR EXAM: Female, 83 years old. HEPATOMEGALY, ABD PAIN, CONSTIPATION TECHNIQUE: Transabdominal ultrasound was performed with real-time and static ruiz scale imaging. TECHNICAL QUALITY: Adequate. COMPARISON: None. FINDINGS: Liver: The liver measures 17.3 cm. There is normal echogenicity of the liver. The bile ducts are within normal limits. There is hepatic color flow. The direction of portal flow is hepatopetal. There is no demonstrated mass lesion. Portal vein measurement: Gallbladder: Normal distended gallbladder. The gallbladder wall measures mm. There is a negative sonographic Gibbons''s sign. There is no pericholecystic fluid. There are no gallstones. Common Bile Duct (C.B.D.): The common bile duct measures 2 mm. Pancreas: Normal size of the head, body and tail of the pancreas. There is normal echogenicity of the pancreas. There is no demonstrated pancreatic mass or cyst. Spleen: Normal size of the spleen. The spleen measures 7.6 cm. Right Kidney: Normal size of the right kidney. The right kidney measures 10.4 cm. Normal renal cortex. The right cortex measures 0.9 cm. There is no demonstrated renal mass or cyst. There is no right hydronephrosis. Left Kidney: Normal size of the left kidney. The left kidney measures 8.4 x 4.5 x 3.6 cm. Normal renal cortex. The left cortex measures 1.1 cm. There is no demonstrated renal mass or cyst. There is no left hydronephrosis. Aorta: 2.0 cm. No aneurysm. Prominent irregular atherosclerotic plaque. I.V.C.: The IVC is patent. There is no ascites. US/Abdomen Complete IMPRESSION: No definite acute or significant abnormality seen. Electronically Signed: Riley Benson MD at 17:20 EST ,
== END | disposition home or self-care (01) ==
LOC: US 09:22
PROVIDERS: PCP Family Medicine; Referring Provider Family Medicine; Visit Provider Family Medicine
DX: K59.00 Constipation, unspecified (principal); R16.0 Hepatomegaly, not elsewhere classified; R10.9 Unspecified abdominal pain
CPT/HCPCS: 76700

== ENCOUNTER 2023-12-06 17:32 | Emergency (ER) | payer MEDICARE, SELFPAY ==
[2023-12-06 17:33] VITALS: BP 178/108; PULSE 70; RESP 18; TEMP 36.2; O2SAT 94
--- NOTE | 2023-12-06 18:15 | RAD_ITS ---
EXAM: XR ABDOMEN, 1 VIEW CLINICAL INDICATION: CONSTIPATION TECHNIQUE: Single AP supine view. COMPARISON: No relevant prior studies available. FINDINGS: LOWER THORAX: Hyperlucency and hyperexpansion at the lung bases again noted. GASTROINTESTINAL TRACT: There is mild gastric air bubble and mild scattered bowel gas in the central-left lower abdomen and pelvis. Non-obstructive. No bowel or stomach distention. ORGANS: Unremarkable as visualized. No organomegaly. No abnormal calcifications. BONES/JOINTS: Superiorly dislocated left femoral head prosthesis and proximal nulato femur, similar to old exams. Mild lumbar spondylosis. SOFT TISSUES: No acute pathology. VASCULATURE: Heavily calcified aortoiliac vessels, unremarkable caliber where seen. RAD/Abdomen Single View (Portable) IMPRESSION: 1. Nonspecific bowel gas pattern. 2. Hyperinflated and hyperlucent lung bases. See the chest radiograph. Thank you. Electronically Signed: Corin Adams MD at 19:29 EDT ,
--- NOTE | 2023-12-06 18:15 | RAD_ITS ---
EXAM: XR CHEST, 1 VIEW CLINICAL INDICATION: PAIN TECHNIQUE: Frontal view of the chest. COMPARISON: June 10, 2022, June 12, 2022, CTA chest June 10, 2022 showing advanced senescent changes airway thickening coarse increased interstitial and patchy opacities in the lung bases, pleural effusions FINDINGS: LUNGS AND PLEURAL SPACES: The lungs are hyperinflated with increased lucency in the mid-lower lung bear compared to prior exam, possibly worsening emphysematous change. No pneumothorax. No effusion. HEART: Unremarkable. Cardiac silhouette not enlarged. MEDIASTINUM: Central airways and mediastinal contour are unremarkable. BONES/JOINTS: Unremarkable. No acute fracture. SOFT TISSUES: Heavily peripherally calcified breast implants are again noted. VASCULATURE: Heavily calcified aorta and aortic contour appears similar. RAD/Chest 1 View (Portable) IMPRESSION: 1. Advanced COPD. 2. Increased inflation and increased lucency in the lung bases may be due to increased hyperinflation or PE. 3. Cannot exclude anterior right pneumothorax in the appropriate clinical setting, the patient is supine. 4. Consider additional evaluation by PA and lateral views of the chest or CT-CTA if is thought to be indicated. Electronically Signed: Corin Adams MD at 19:26 EDT ,
--- NOTE | 2023-12-06 18:15 | RAD_ITS ---
EXAM: XR LEFT HIP WITH PELVIS WHEN PERFORMED, 3 VIEWS CLINICAL INDICATION: PAIN CONSTIPATION TECHNIQUE: 2 hip views and AP pelvis. COMPARISON: September 07, 2021. FINDINGS: BONES/JOINTS: Superior dislocation of the left femur-femoral head prosthesis, roughly 7.5 cm superior to the acetabulum. Hypertrophic changes of the acetabulum and shallow acetabulum suggesting chronic fracture of left superior-lateral acetabular margin and intra-articular soft tissue calcifications. These findings are similar to September 07, 2021. No destructive or sclerotic lesions. Note that overlapping bowel shadows may however obscure fine detail. Sacroiliac joint is unremarkable. No widening of the pubic symphysis. SOFT TISSUES: Unremarkable. No soft tissue swelling or gas. RAD/HIP, UNI W/ Pelvis 2-3 Views IMPRESSION: No acute findings in the pelvis or left hip. 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 Electronically Signed: Corin Adams MD at 19:05 EDT ,
--- NOTE | 2023-12-06 19:00 | EX.ED.DYSGE1 ---
HPI History of Present Illness Chief Complaint: Constipation [facility] Medical History (Updated 12/06/23 @ 18:37 by Yulisa Parsons) Displacement of internal left hip prosthesis (~02/13/22) Chronic respiratory acidosis Community acquired pneumonia Acute confusion Former smoker Gluten intolerance Smoker COPD (chronic obstructive pulmonary disease) Hypertension Stroke/cerebrovascular accident Home Medications ?Medication ?Instructions ?Recorded ?Last Taken ?Type levothyroxine 75 mcg tablet 75 mcg PO DAILY THYROID 06/05/21 06/09/22 History lisinopril 20 mg tablet 20 mg PO DAILY BLOOD PRESSURE 06/05/21 06/09/22 History metoprolol succinate 50 mg 50 mg PO QPM BLOOD PRESSURE 06/05/21 06/09/22 06:00 History tablet,extended release 24 hr montelukast 10 mg tablet 10 mg PO QHS BREATHING 06/05/21 06/09/22 History (Singulair) clopidogrel 75 mg tablet 75 mg PO DAILY BLOOD THINNER 09/07/21 06/09/22 History hydrocodone-acetaminophen 5-325mg 1 tab PO Q6H PRN Pain 06/10/22 06/08/22 History 5mg-325mg lorazepam 2 mg tablet 2 mg PO TID ANXIETY 06/10/22 06/09/22 History oxybutynin chloride 5 mg 5 mg PO DAILY OVERACTIVE BLADDER 06/10/22 06/09/22 History tablet,extended release 24 hr amoxicillin 875 mg-potassium 875 mg PO BID #10 tabs 06/13/22 Unknown Rx clavulanate 125 mg tablet Allergy/AdvReac Type Severity Reaction Status Date / Time meperidine (From Demerol) Allergy Rash Verified 12/06/23 17:32 Family History Mother Hypertension Heart disease Father Hypertension Cancer Hx prostate CA. Other CVA (cerebral vascular accident) Surgical History History of total left hip replacement Hx of breast implants, bilateral Social History household members: other details: Son's girlfriend Smoking Status: Current every day smoker tobacco type: cigarettes and e-cigarettes how long ago did patient quit smoking: Reports recently quit cigarette tobacco, prior heavy since youth. 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 substance use type: does not use EXAM Physical Exam Const Vital Signs: 12/06/23 17:33 12/06/23 18:47 12/06/23 19:37 Temperature 97.2 F L Temperature Source Temporal Pulse Rate 70 75 Respiratory Rate 18 16 Respiratory Effort Normal Respiratory Depth Normal Respiratory Pattern Normal Blood Pressure 178/108 H 165/92 H Blood Pressure Mean 131 116 Pulse Ox 94 95 Oxygen Delivery Method Room Air Room Air Room Air 12/06/23 21:00 Temperature Temperature Source Pulse Rate 63 Respiratory Rate 15 Respiratory Effort Respiratory Depth Respiratory Pattern Blood Pressure 173/97 H Blood Pressure Mean 122 Pulse Ox 98 Oxygen Delivery Method Room Air MDM MDM MDM Narrative Medical decision making narrative: HISTORY OF PRESENT ILLNESS: 83-year-old female presents with concern for constipation. Notes she took a suppository at home and that she may have sort of self. She notes abdominal cramping. Patient further states she had abdominal cramping and constipation earlier today. Notes she placed a suppository and felt something blocking things. She is concerned she may have a bowel obstruction. Denies vomiting or fever. Last bowel movement was just prior to my evaluation. No melena hematochezia reported. No chest pain or shortness of breath reported. REVIEW OF SYSTEMS: Pertinent positives: Constipation, abdominal cramping Pertinent negatives: Vomiting, fever, urinary complaints open (such as dysuria urgency frequency or hematuria) PHYSICAL EXAM: Nursing triage notes reviewed, Vital signs reviewed Constitutional: please see mdm HENT: MMM Eyes: Pupils equal round and reactive to light, Extraocular muscles intact Neck: No stridor, no JVD, full neck ROM Lungs: Clear to auscultation, No wheezing or rales. No increased work of breathing, no conversational dyspnea, no accessory muscle use, no nasal flaring. No respiratory distress noted Heart: Regular rate and rhythm, No murmurs, No rubs and No gallops, 2+ distal pulses (radial, femoral, posterior tibial) in all extremities Abdomen: Soft, there is no tenderness, rigidity, rebound or guarding, no obvious peritoneal signs, no palpable pulsatile abdominal masses, no auscultated abdominal bruit : No CVAT Extremities: No edema Neuro: No focal neurological deficits, cranial nerves II through XII intact, 5/5 strength in all extremities. Intact sensation to light touch in all extremities, 2+ reflexes bilateral patella tendons. Normal gait. No ataxia. Skin: No rash or lesions noted MEDICAL DECISION MAKING: Chief Complaint: Constipation External records reviewed: Prior imaging reviewed: Reviewed prior hip x-ray from 2021 which shows a similar fall that she as today. Factors affecting care: Peripheral artery disease, anemia, chronic left hip dislocation, left intro trochanteric fracture of the hip Social determinants of health: none History obtained from others: none Consults: none [facility] Narrative: Patient was initially hypertensive with a blood pressure 178/108 otherwise afebrile and nontoxic-appearing. Exam without distention or significant tenderness to palpation. I considered the following differential diagnosis: Electrolyte disturbance, bowel obstruction, constipation, fecal impaction KUB was obtained in triage, x-rays of the hip were obtained in triage I obtained labs including a BMP to rule out significant electrolyte disturbances. ALL IMAGES (IF OBTAINED) HAVE BEEN PERSONALLY REVIEWED AND INTERPRETED BY MYSELF. X-ray of the hip with pelvis was read reviewed by myself shows evidence of a chronically displaced left hip dislocation BMP with hyponatremia, no other electrolyte abnormalities or significant renal dysfunction Lactate is wnl indicating no end-organ hypoperfusion and/or hypoxia. LFTs show no evidence of hepatobiliary pathology. Lipase is wnl indicating no pancreatic inflammation. Chest x-ray read reviewed myself shows no evidence of pneumothorax, pneumonia or pulmonary edema. Radiologist read questionable pneumothorax however I think this is less likely given my read of no pneumothorax, the patient not having chest pain or shortness of breath. In addition to this patient has history of COPD this is likely a bleb rather than a true pneumothorax. Will not pursue further imaging as patient has no symptomatology to warrant additional testing. 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 Noted evidence of mild colitis. Will treat with oral Augmentin and have the patient follow with her primary care physician. The synthesis of the patient's history, physical exam, labs images suggest mild colitis as a potential etiology. Will give Augmentin for antimicrobial prophylaxis and discharged with close PCP follow-up. The patient and/or family, caregivers express understanding. The patient and/or family, caregivers agrees with the plan. Shared decision making: I will have a discussion with the patient and or visitors regarding risk/benefits of further testing or admission. They will be made aware of of the risk/benefits inherent in this decision they will be given the opportunity to voice understanding. Total critical care time today provided was at least 0 minutes. This excludes separately billable procedures. Critical care time (if documented) is secondary to the patient having high probability of clinically significant/life threatening deterioration in the patient's condition which required my urgent intervention. Impression: 1. Constipation 2. Chronic left hip dislocation 3. Colitis Dispo: Discharge home This note was generated with [employer] dictation software. It may contain incorrect words, spelling, and punctuation that were not noted in review of the chart prior to signing. Lab Data Labs: Laboratory Results - last 24 hr 12/06/23 19:34 Sodium 131 L Potassium 4.1 Chloride 95 L Carbon Dioxide 30.0 Anion Gap 6 BUN 24 H Creatinine 1.09 H Est GFR (MDRD) Af Amer 62 Est GFR (MDRD) Non-Af 51 L BUN/Creatinine Ratio 22.0 H Glucose 88 Lactic Acid 0.9 Calcium 9.4 Total Bilirubin 0.90 AST 21 ALT 16 Alkaline Phosphatase 114 Total Protein 6.8 Albumin 3.1 L Globulin 3.7 Albumin/Globulin Ratio 0.8 L Lipase 16 Radiography Diagnostic Testing: Clinical Impression(s) from Imaging Studies Chest X-Ray 12/06/23 18:15 IMPRESSION: 1. Advanced COPD. 2. Increased inflation and increased lucency in the lung bases may be due to increased hyperinflation or PE. 3. Cannot exclude anterior right pneumothorax in the appropriate clinical setting, the patient is supine. 4. Consider additional evaluation by PA and lateral views of the chest or CT-CTA if is thought to be indicated. Electronically Signed: Corin Adams MD at 19:26 EDT , Hip/Pelvis X-Ray 12/06/23 18:15 IMPRESSION: No acute findings in the pelvis or left hip. 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 Electronically Signed: Corin Adams MD at 19:05 EDT , KUB X-Ray 12/06/23 18:15 IMPRESSION: 1. Nonspecific bowel gas pattern. 2. Hyperinflated and hyperlucent lung bases. See the chest radiograph. Thank you. Electronically Signed: Corin Adams MD at 19:29 EDT , Abdomen/Pelvis CT 12/06/23 19:20 IMPRESSION: 1. Suspicion of early or mild colitis mild fluid and gas in most of the colon with at least mild wall thickening and enhancement. No evidence of significant constipation. Similar appearance of intraluminal fluid with mild mucosal enhancement involving the rectum. The colon is difficult to follow. 2. Nonvisualized appendix. 3. No evidence of significant small bowel obstruction, oral contrast reached most of the distal small bowel loops. 4. Mild focal distal thoracic aorta dilatation. 5. Small left effusion and mildly thick band of opacity in the left lung base superimposed on bullous-fibrotic changes. 6. High-grade segmental stenosis of proximal SMA. High-grade stenosis of left greater than right renal arteries. At least moderate stenosis of origin of the celiac axis. 7. Atrophic left kidney. 8. Moderately distended urinary bladder. Electronically Signed: Corin Adams MD at 22:12 EDT , Discharge Plan Triage Chief Complaint: Constipation ED Provider: Shailesh Ramírez Dx/Rx/DC Orders Prescriptions: No Action levothyroxine 75 mcg Tablet 75 mcg PO DAILY metoprolol succinate 50 mg Tablet Extended Release 24 Hr 50 mg PO QPM lisinopril 20 mg Tablet 20 mg PO DAILY montelukast [Singulair] 10 mg Tablet 10 mg PO QHS clopidogrel 75 mg Tablet 75 mg PO DAILY hydrocodone-acetaminophen 5-325 mg tablet 1 tab PO Q6H PRN (Reason: Pain) lorazepam 2 mg tablet 2 mg PO TID oxybutynin chloride 5 mg tablet extended release 24hr 5 mg PO DAILY amoxicillin-pot clavulanate 875-125 mg Tablet 875 mg PO BID Qty: 10 0RF Rx Instructions: start 06/14/22, take with food Primary Care Provider: Duncan Boateng Referrals: Duncan Boateng MD [Primary Care Provider] - Print Language: Yakut
--- NOTE | 2023-12-06 19:20 | CT_ITS ---
EXAM: CT ABDOMEN AND PELVIS WITH INTRAVENOUS CONTRAST CLINICAL INDICATION: Constipation, rule out bowel obstruction -- IV PO Contrast TECHNIQUE: Helically acquired images were obtained of the abdomen and pelvis with intravenous contrast. This CT exam was performed using one or more of the following dose reduction techniques: automated exposure control, adjustment of the mA and/or kV according to patient size, and/or use of iterative reconstruction technique. CONTRAST: Oral and amp; IV Gastrografin and amp; 75mL Isovue-370 RADIATION DOSE: CTDIvol = 15.26 mGy, DLP = 314.99 mGy-cm. COMPARISON: CTA chest June 10, 2022. FINDINGS: LOWER THORAX: Heavily calcified aortoiliac vessels and intra-abdominal arterial branches high-grade stenosis of the proximal 2.7 cm at the left renal artery and fairly high-grade stenosis of the proximal right renal artery. Mild dilatation of the distal descending thoracic aorta to 3.4 cm x 3 cm just proximal to the aortic hiatus. There is advanced emphysematous change in the lung bases, interstitial thickening and mild juxtapleural consolidation in the posterior-medial left lung base. Slight left effusion and mild posterior right pleural thickening or slight effusion. The heart is not fully included. Presumed stent in right coronary artery. ABDOMEN: LIVER: Elongated liver, the right lobe is 17.3 cm. Pancreatic duct estimated to be 4.5 mm proximal. GALLBLADDER AND BILE DUCTS: Partially contracted gallbladder. No calcified gallstones. No gallbladder distention or wall edema. No intra- or extrahepatic biliary ductal dilation. PANCREAS: See above. SPLEEN: Unremarkable. Normal size without focal cystic or solid mass. ADRENALS: Unremarkable. No nodules. KIDNEYS AND URETERS: Atrophic left kidney, 6.2 cm in length, compared to 9.3 cm in length of the right kidney. No hydronephrosis. STOMACH AND BOWEL: Oral contrast reached most distal small bowel loops, it does not opacify the terminal ileum or right colon. Crowded bowel. There is mild wall thickening and enhancement of the splenic flexure, descending colon, sigmoid, they contain minimal gas and fluid. Mildly prominent small bowel content. No stomach or bowel distention. PELVIS: APPENDIX: Low lying cecum, appendix is not clearly seen. BLADDER: Moderately distended urinary bladder, at least 10 cm craniocaudal. REPRODUCTIVE: Atrophic uterus with a few coarse calcifications. ABDOMEN and PELVIS: INTRAPERITONEAL SPACE: Unremarkable. No ascites or other fluid collection. No free air. BONES/JOINTS: Chronic changes of the left hip with hypertrophic changes, superior dislocation of the femoral prosthesis components. Slight demineralization of the spine, mild disc bulges or protrusions minimally effacing the ventral thecal sac, most pronounced at L1-2. No suspicious lytic or blastic abnormality. SOFT TISSUES: Unremarkable. No discrete abdominal or pelvic wall hernia. VASCULATURE: High-grade stenosis of proximal SMA with a large amount of calcified plaque, involving at least the 1.3 cm proximal vessel. LYMPH NODES: Unremarkable. No enlarged lymph nodes. CT/Abdomen/Pelvis WITH Contrast IMPRESSION: 1. Suspicion of early or mild colitis mild fluid and gas in most of the colon with at least mild wall thickening and enhancement. No evidence of significant constipation. Similar appearance of intraluminal fluid with mild mucosal enhancement involving the rectum. The colon is difficult to follow. 2. Nonvisualized appendix. 3. No evidence of significant small bowel obstruction, oral contrast reached most of the distal small bowel loops. 4. Mild focal distal thoracic aorta dilatation. 5. Small left effusion and mildly thick band of opacity in the left lung base superimposed on bullous-fibrotic changes. 6. High-grade segmental stenosis of proximal SMA. High-grade stenosis of left greater than right renal arteries. At least moderate stenosis of origin of the celiac axis. 7. Atrophic left kidney. 8. Moderately distended urinary bladder. Electronically Signed: Corin Adams MD at 22:12 EDT ,
[2023-12-06 19:37] VITALS: BP 165/92; PULSE 75; RESP 16; O2SAT 95
[2023-12-06] MEDS: 0.9% Normal Saline (1000mL) 1,000 ML 999 ML IV (19:55)
[2023-12-06 20:36] LABS: ALB/GLOB Ratio 0.8 RATIO (0.9-2.4); AST(SGOT) 21 U/L (15-37); Alanine Aminotransfer ALT/SGPT 16 U/L (13-56); Albumin, Serum 3.1 g/dL (3.2-5.0); Alkaline Phosphatase 114 U/L (45-117); Anion Gap 6 (5-15); BUN 24 mg/dL (7-18); Calcium,Total 9.4 mg/dL (8.5-10.1); Chloride 95 mmol/L (98-107); Creatinine, Serum 1.09 mg/dL (0.55-1.02); EST Glomerular Filtration Rate 51 mL/min (>60); Est Glom Filt Rate - Afr Amer 62 mL/min (>60); Globulin 3.7 g/dL (2.2-4.2); Glucose 88 mg/dL (74-106); Lactic Acid 0.9 mmol/L (0.4-1.9); Lipase 16 U/L (13-75); Potassium 4.1 mmol/L (3.5-5.1); Protein, Total 6.8 g/dL (6.4-8.2); Sodium Level 131 mmol/L (136-145)
[2023-12-06 21:00] VITALS: BP 173/97; PULSE 63; RESP 15; O2SAT 98
[2023-12-06 23:00] VITALS: BP 159/92; PULSE 72; RESP 16; TEMP 36.7; O2SAT 96
== END 2023-12-06 23:38 | disposition home or self-care (01) ==
PROVIDERS: Emergency Provider Emergency Medicine; PCP Family Medicine; Visit Provider Emergency Medicine
DX: K52.9 Noninfective gastroenteritis and colitis, unspecified (principal); J44.9 Chronic obstructive pulmonary disease, unspecified; K59.00 Constipation, unspecified; M24.452 Recurrent dislocation, left hip; F17.210 Nicotine dependence, cigarettes, uncomplicated; F17.290 Nicotine dependence, other tobacco product, uncomplicated; Z86.73 Personal history of transient ischemic attack (TIA), and cerebral infarction without residual deficits
CPT/HCPCS: 71045; 73502; 74018; 74177; 80048; 80053; 83605; 83690; 96360; 99284; J7030; Q9967; A4216; J2405

== ENCOUNTER 2025-02-12 12:21 | Inpatient (IN) | payer MEDICARE, SELFPAY ==
[2025-02-12] VITALS (11 sets, daily range): BP systolic 164–201; BP diastolic 92–106; PULSE 58–83; RESP 13–26; TEMP 36.8–37; O2SAT 91–100; BMI 15.5; BMI 15.0
--- NOTE | 2025-02-12 12:44 | EKG12_ITS ---
Test Reason : SOB Blood Pressure : */* mmHG Vent. Rate : 58 BPM Atrial Rate : 58 BPM P-R Int : 180 ms QRS Dur : 80 ms QT Int : 444 ms P-R-T Axes : 77 239 71 degrees QTcB Int : 435 ms Sinus bradycardia Possible Left atrial enlargement Right superior axis deviation due to possible artrifact Cannot rule out Septal infarct (cited on or before 07-Sep-2021) Abnormal ECG Confirmed by Kevin Benitez ([id number]), movie editor VANNA SOUZA ([id number]) on 02/13/2025 1:42:47 PM Referred By: Confirmed By: Kevin Benitez
--- NOTE | 2025-02-12 12:44 | RAD_ITS ---
PROCEDURE: CHEST 1 VIEW (PORTABLE) N/A REASON FOR EXAM: SHORTNESS OF BREATH TECHNIQUE: Frontal view of the chest. COMPARISON: None provided. RAD/Chest 1 View (Portable) IMPRESSION: Bilateral breast prostheses are in place, with extensive areas peripheral calci fication noted. These areas of calcification limited evaluation of some portions of both lungs. Generalized osteopenia is seen. The cardiomediastinal silhouette is remarkable for a calcified aorta. No evide nce of cardiomegaly. Lungs are hyperinflated, but no evidence of pulmonary edema or focal infiltrate is seen. No pleural effusion or pneumothorax is evident. No evidence of acute cardiopulmonary disease. Reading Location: [id number]
--- NOTE | 2025-02-12 12:46 | EX.ED.DYSGE1 ---
HPI History of Present Illness Chief Complaint: General Illness Narrative Narrative: 84-year-old female past medical history of COPD, wears oxygen at night and as needed presents with increasing dyspnea that she has had for the last few weeks if not longer. She states she usually does not wear her oxygen at home, only at night or if she is watching TV because she has to get up in the middle of the night because of frequent micturition, does not want to get tangled up in cords. She denies any fever or chills, has occasional cough. She saw her primary care provider this morning who sent her to the emergency department with concern for chest congestion that she has had for months. Was reported that they heard rattling in her chest as well. She has not been a smoker for years. She states that she has actually had problems with breathing ever since her 8 years ago. No exacerbating or alleviating factors. [facility] Medical History (Updated 02/12/25 @ 15:13 by Austin Mae MD) Anxiety Depression Hypothyroidism Seizures Displacement of internal left hip prosthesis (~02/13/22) Chronic respiratory acidosis Community acquired pneumonia Acute confusion Former smoker Gluten intolerance Smoker COPD (chronic obstructive pulmonary disease) Hypertension Stroke/cerebrovascular accident Home Medications ?Medication ?Instructions ?Recorded ?Last Taken ?Type levothyroxine 75 mcg tablet 75 mcg PO DAILY THYROID 06/05/21 06/09/22 History lisinopril 20 mg tablet 20 mg PO DAILY BLOOD PRESSURE 06/05/21 06/09/22 History metoprolol succinate 50 mg 50 mg PO QPM BLOOD PRESSURE 06/05/21 06/09/22 06:00 History tablet,extended release 24 hr montelukast 10 mg tablet 10 mg PO QHS BREATHING 06/05/21 06/09/22 History (Singulair) clopidogrel 75 mg tablet 75 mg PO DAILY BLOOD THINNER 09/07/21 06/09/22 History hydrocodone-acetaminophen 5-325mg 1 tab PO Q6H PRN Pain 06/10/22 06/08/22 History 5mg-325mg lorazepam 2 mg tablet 2 mg PO TID ANXIETY 06/10/22 06/09/22 History oxybutynin chloride 5 mg 5 mg PO DAILY OVERACTIVE BLADDER 06/10/22 06/09/22 History tablet,extended release 24 hr amoxicillin 875 mg-potassium 875 mg PO BID #10 tabs 06/13/22 Unknown Rx clavulanate 125 mg tablet amoxicillin 875 mg-potassium 1 tab PO BID 7 days #14 tabs 12/06/23 Unknown Rx clavulanate 125 mg tablet Allergy/AdvReac Type Severity Reaction Status Date / Time meperidine (From Demerol) Allergy Rash Verified 02/12/25 12:25 Family History Mother Hypertension Heart disease Father Hypertension Cancer Hx prostate CA. Other CVA (cerebral vascular accident) Surgical History History of total left hip replacement Hx of breast implants, bilateral Social History household members: other details: Son's girlfriend Smoking Status: Current every day smoker tobacco type: cigarettes and e-cigarettes how long ago did patient quit smoking: Reports recently quit cigarette tobacco, prior heavy since youth. 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 substance use type: does not use ROS ROS ED ROS Narrative Review of systems positive for shortness of breath with mild dyspnea on exertion. Longstanding difficulty breathing. No history of congestive heart failure. No increased swelling of legs. EXAM Physical Exam Narrative Exam Narrative: Afebrile. Vital signs noted. Nontoxic-appearing. Cardiovascular examination reveals regular rate and rhythm. Decreased breath sounds diffusely bilateral lung bear. No overt wheezing or stridor. Moving a fair amount of air. Abdomen is soft and nontender without guarding or rebound. Positive bowel sounds. Neurological examination is nonfocal, nonlateralizing. Mild cachexia. Const Vital Signs: 02/12/25 12:22 02/12/25 12:44 02/12/25 13:02 Temperature 98.2 F Temperature Source Oral Pulse Rate 64 58 L Respiratory Rate 18 16 Respiratory Pattern Normal Blood Pressure 201/92 H Blood Pressure Mean 128 Pulse Ox 91 Oxygen Delivery Method Room Air Nasal Cannula Oxygen Flow Rate (L/min) 3 02/12/25 13:24 02/12/25 15:06 Temperature 98.2 F Temperature Source Temporal Pulse Rate 62 68 Respiratory Rate 23 H 13 Respiratory Pattern Blood Pressure 169/97 H 189/106 H Blood Pressure Mean 121 133 Pulse Ox 100 Oxygen Delivery Method Nasal Cannula Nasal Cannula Oxygen Flow Rate (L/min) 3 3 MDM MDM MDM Narrative Medical decision making narrative: Differential diagnosis includes but not limited to pneumonia versus pneumothorax versus COPD exacerbation versus undiagnosed CHF. I reviewed her EMR and she does have COPD listed as a problem as well as hypertension. She has elevated blood pressure of 201/92 so she could be having more of a hypertensive urgency versus emergency. I have low suspicion for DVT or blood clot/pulmonary embolism. She is not tachycardic. She was 91% on room air. I do feel that given her history of being a former smoker and COPD that she should wear her oxygen more often. I reviewed her laboratory work and she has normal white count of 6.9 with hemoglobin 13.9, hematocrit 43.8, platelet count 278. Electrolyte panel shows potassium slightly elevated at 5.2 with a BUN of 19 and creatinine 0.95. Glucose 93. Urinalysis is negative for infection with WBC count 0-5. I do not feel she needs antibiotics. Ketones are negative so I doubt dehydration. BNP is elevated at 3460. She was able to ambulate a few steps in the ED with a walker, in her room. She was on 3 L of oxygen, and became mildly tachypneic, and pulse ox 88% on 3 L of oxygen. It was not felt in discussion with Dr. Nadira Lorenz that she was in absolute fluid overload and that she required Lasix immediately. However, given her dyspnea and elevated BNP, patient was admitted to the PCU for further evaluation and treatment. Disposition is admitted in stable condition. History & Record Review Discussion w/independent historian: Patient and Family Additional record(s) reviewed:: Prior ED visit (Last ED visit 2023) and Prior labs Lab Data Attestation: I reviewed the patient's lab results. Labs: Laboratory Results - last 24 hr 02/12/25 02/12/25 13:49 14:08 WBC 6.9 RBC 4.69 Hgb 13.9 Hct 43.8 MCV 93.4 MCH 29.6 MCHC 31.7 L RDW Std Deviation 48.6 H RDW Coeff of María 14.1 Plt Count 278 MPV 9.8 Immature Gran % (Auto) 0.400 Neut % (Auto) 72.1 H Lymph % (Auto) 18.9 L [place] % (Auto) 6.5 Eos % (Auto) 0.9 Baso % (Auto) 1.2 H Absolute Neuts (auto) 5.0 Absolute Lymphs (auto) 1.31 Nucleated RBC % 0 Sodium 139 Potassium 5.2 H Chloride 101 Carbon Dioxide 31.3 Anion Gap 7 BUN 19 Creatinine 0.95 Estim Creat Clear Calc 27.27 L Est GFR (MDRD) Non-Af 59 L BUN/Creatinine Ratio 19.5 Glucose 93 Calcium 9.9 NT pro BNP II 3460 H Urine Color Yellow Urine Clarity Sl. Cloudy Urine pH 7.0 Ur Specific [place] 1.010 Urine Protein 100 H Urine Glucose (UA) Normal Urine Ketones Negative Urine Occult Blood 25 H Urine Nitrite Negative Urine Bilirubin Negative Urine Urobilinogen Normal Ur Leukocyte Esterase 25 H Urine RBC 0 SEEN Urine WBC 0-5 SEEN Ur Squamous Epith Cells 0-5 SEEN Urine Bacteria 0 SEEN Urine Mucus 0 SEEN Radiography Diagnostic Testing: Clinical Impression(s) from Imaging Studies Chest X-Ray 02/12/25 12:44 IMPRESSION: Bilateral breast prostheses are in place, with extensive areas peripheral calcification noted. These areas of calcification limited evaluation of some portions of both lungs. Generalized osteopenia is seen. The cardiomediastinal silhouette is remarkable for a calcified aorta. No evidence of cardiomegaly. Lungs are hyperinflated, but no evidence of pulmonary edema or focal infiltrate is seen. No pleural effusion or pneumothorax is evident. No evidence of acute cardiopulmonary disease. Reading Location: [address] Discharge Plan Dx/Rx/DC Orders Clinical Impression: Dyspnea, Elevated brain natriuretic peptide (BNP) level, Anxiety Disposition Disposition: Acute Care [facility]
[2025-02-12 13:55] LABS: Hematocrit 43.8 % (37-47); Hemoglobin 13.9 g/dL (12.0-15.0); Immature Granulocytes Count 0.030 X10^3/uL (0.0-0.0); Mean Corp Hgb Conc 31.7 g/dL (32-36); Mean Corpuscular Volume 93.4 fL (81-99); Mean Platelet Vol. 9.8 fl (6.2-12.0); NRBC Flagged by Analyzer 0 % (0-5); Platelet Count 278 K/mm3 (150-450); RBC Distribution Width CV 14.1 % (11.6-14.6); RBC Distribution Width SD 48.6 fl (35.1-43.9); Red Blood Count 4.69 M/mm3 (4.2-5.4); White Blood Count 6.9 K/mm3 (4.4-11.0)
[2025-02-12 14:29] LABS: Mucous, Urine 0 SEEN /hpf (<or=2+); Red Blood Cells-Urine 0 SEEN /hpf (0-5)
[2025-02-12 14:36] LABS: Color, Urine Yellow (Yellow); Glucose, Dipstick Normal (Normal); Ketone-Dipstick Negative (Negative); Leukocyte Esterase-Dipstick 25 /ul (Negative); Nitrite-Dipstick Negative (Negative); Occult Blood-Urine 25 /ul (Negative); Protein-Dipstick 100 mg/dl (Negative); Specific Gravity, Urine 1.010 (1.002-1.030); Urine Bilirubin Dipstick Negative (Negative)
[2025-02-12 14:43] LABS: Anion Gap 7 (5-15); BUN 19 mg/dL (4-19); BUN/Creat Ratio 19.5 RATIO (10-20); Calcium,Total 9.9 mg/dL (7.6-11.0); Carbon Dioxide 31.3 mmol/L (21.0-32.0); Chloride 101 mmol/L (98-108); Estimated Creatinine Clearance 27.27 ml/min (50-250); Glucose 93 mg/dL (70-99); Potassium 5.2 mmol/L (3.3-5.1); Pro- Brain NATRIURETIC PEPTIDE 3460 pg/mL (<=1800)
[2025-02-12 14:43] LABS: Squamous Epithelial Cells - UA 0-5 SEEN /hpf (5-10)
--- NOTE | 2025-02-12 15:48 | PCM.HP.STD ---
[facility] - General General Date of Admission: 02/12/25 Date of Service: 02/12/25 Chief Complaint: Shortness of breath, failure to thrive HPI Narrative ALONSO COLE, is a 84 F with a history of COPD, anxiety, CVA, chronic hypoxic respiratory failure (only intermittently using home O2), leg length discrepancy, hypertension, hypothyroidism, diastolic dysfunction and pulmonary hypertension who presented [facility] ED 02/12/2025 due to worsening shortness of breath. In the ED temp 98.2, heart rate 64, blood pressure initially 201/92, respiratory rate 18 pulse ox 91% on room air however on ambulation she required 3 L to maintain saturation of 89%. White blood cell count 6.9, hemoglobin 13.9, potassium listed at 5.2 with a BUN of 19 and a creatinine 0.95, proBNP 3400, UA did not appear infectious and chest x-ray shows areas of peripheral calcification and hyperinflated lungs but no evidence of pulmonary edema or focal infiltrate. Patient unsteady with walker, very anxious and required 3 L to maintain sats of 89% when moving around. Ultimately hospitalist contacted for admission. Patient evaluated with daughter at bedside. Reportedly patient has had worsening shortness of breath over multiple years and over the past month has had some cough with mucus especially at night oftentimes white and occasionally yellow and she will feel like it is choking her so she has not been sleeping very well. Does not notice this as much during the day. Also notes she has significant anxiety in general and that has been making her breathing even worse. She does have home O2 but only uses it intermittently when it is convenient for her. Not presently following with a [employer] and does report COPD but only uses an albuterol inhaler as needed but notes she is never able to inhale it correctly and it just goes to the roof of her mouth so this does not work. Patient very anxious with multiple complaints but primary complaint is the progressively worsening shortness of breath and denies any acute changes in her breathing [facility] Medical History (Updated 02/12/25 @ 15:[address] Nadira Lorenz MD) Acute confusion Anxiety Chronic respiratory acidosis Community acquired pneumonia COPD (chronic obstructive pulmonary disease) Depression Diastolic dysfunction Displacement of internal left hip prosthesis (~02/13/22) Former smoker Gluten intolerance Hypertension Hypothyroidism Pulmonary hypertension Seizures Smoker Stroke/cerebrovascular accident Home Medications ?Medication ?Instructions ?Recorded ?Last Taken ?Type levothyroxine 75 mcg tablet 75 mcg PO DAILY THYROID 06/05/21 06/09/22 History lisinopril 20 mg tablet 20 mg PO DAILY BLOOD PRESSURE 06/05/21 06/09/22 History metoprolol succinate 50 mg 50 mg PO QPM BLOOD PRESSURE 06/05/21 06/09/22 06:00 History tablet,extended release 24 hr montelukast 10 mg tablet 10 mg PO QHS BREATHING 06/05/21 06/09/22 History (Singulair) clopidogrel 75 mg tablet 75 mg PO DAILY BLOOD THINNER 09/07/21 06/09/22 History hydrocodone-acetaminophen 5-325mg 1 tab PO Q6H PRN Pain 06/10/22 06/08/22 History 5mg-325mg lorazepam 2 mg tablet 2 mg PO TID ANXIETY 06/10/22 06/09/22 History oxybutynin chloride 5 mg 5 mg PO DAILY OVERACTIVE BLADDER 06/10/22 06/09/22 History tablet,extended release 24 hr amoxicillin 875 mg-potassium 875 mg PO BID #10 tabs 06/13/22 Unknown Rx clavulanate 125 mg tablet amoxicillin 875 mg-potassium 1 tab PO BID 7 days #14 tabs 12/06/23 Unknown Rx clavulanate 125 mg tablet Allergy/AdvReac Type Severity Reaction Status Date / Time meperidine (From Demerol) Allergy Rash Verified 02/12/25 12:25 Family History Mother Hypertension Heart disease Father Hypertension Cancer Hx prostate CA. Other CVA (cerebral vascular accident) Surgical History History of total left hip replacement Hx of breast implants, bilateral Social History household members: other details: Son's girlfriend Smoking Status: Current every day smoker tobacco type: cigarettes and e-cigarettes how long ago did patient quit smoking: Reports recently quit cigarette tobacco, prior heavy since youth. 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 substance use type: does not use ROS ROS Narrative General: Denies fever/chills HENT: Will get phlegm in her throat at times EYES: Denies changes in vision Resp: Does cough at night due to mucus buildup, has had increased shortness of breath over months to years especially with exertion Cardiac: Occasionally will get chest pain if she is very anxious GI: Occasionally will get sharp abdominal pain when she is very anxious : Urinates frequently overnight Extremity: Has swelling in bilateral lower extremities for months MSK: Some generalized weakness, also notes left leg is shorter than right leg Neuro: Denies any numbness/tingling Heme: Has some various bruising Skin: Has chronic changes lower extremities Psychiatric: Self-reports being very anxious Vital Signs Vital Signs Vital Signs: 02/12/25 12:22 02/12/25 12:44 02/12/25 13:02 Temperature 98.2 F Temperature Source Oral Pulse Rate 64 58 L Respiratory Rate 18 16 Respiratory Pattern Normal Blood Pressure 201/92 H Blood Pressure Mean 128 Pulse Ox 91 Oxygen Delivery Method Room Air Nasal Cannula Oxygen Flow Rate (L/min) 3 02/12/25 13:24 02/12/25 15:06 Temperature 98.2 F Temperature Source Temporal Pulse Rate 62 68 Respiratory Rate 23 H 13 Respiratory Pattern Blood Pressure 169/97 H 189/106 H Blood Pressure Mean 121 133 Pulse Ox 100 Oxygen Delivery Method Nasal Cannula Nasal Cannula Oxygen Flow Rate (L/min) 3 3 Weight Weight: 38.5 kg Body Mass Index (BMI) 15.5 Physical Exam Narrative General: Alert, sometimes will forget what she is saying or gets very anxious and is unable to answer questions, answers some questions appropriately but others had to be supplemented by family members HEENT: Atraumatic, normocephalic Eyes: Anicteric, normal conjunctiva, extraocular movements grossly intact Neck: Supple Respiratory: Somewhat diminished bilaterally but no wheezes, rhonchi, or crackles, normal respiratory effort Cardiovascular: Regular rate and rhythm GI: Soft, nontender, nondistended Extremities: 1+ bilateral lower extremity edema Musculoskeletal: Moving all extremities, does have leg length discrepancy Neuro: No overt focal neurological deficits Skin: Lower extremity chronic changes Psych: Seems to be anxious Results Lab / Micro Data 02/12/25 13:49 02/12/25 13:49 Labs: Laboratory Results - last 24 hr 02/12/25 13:49: WBC 6.9, RBC 4.69, Hgb 13.9, Hct 43.8, MCV 93.4, MCH 29.6, MCHC 31.7 L, RDW Std Deviation 48.6 H, RDW Coeff of María 14.1, Plt Count 278, MPV 9.8, Immature Gran % (Auto) 0.400, Neut % (Auto) 72.1 H, Lymph % (Auto) 18.9 L, Garza % (Auto) 6.5, Eos % (Auto) 0.9, Baso % (Auto) 1.2 H, Absolute Neuts (auto) 5.0, Absolute Lymphs (auto) 1.31, Nucleated RBC % 0, Sodium 139, Potassium 5.2 H, Chloride 101, Carbon Dioxide 31.3, Anion Gap 7, BUN 19, Creatinine 0.95, Estim Creat Clear Calc 27.27 L, Est GFR (MDRD) Non-Af 59 L, BUN/Creatinine Ratio 19.5, Glucose 93, Calcium 9.9, NT pro BNP II 3460 H 02/12/25 14:08: Urine Color Yellow, Urine Clarity Sl. Cloudy, Urine pH 7.0, Ur Specific [place] 1.010, Urine Protein 100 H, Urine Glucose (UA) Normal, Urine Ketones Negative, Urine Occult Blood 25 H, Urine Nitrite Negative, Urine Bilirubin Negative, Urine Urobilinogen Normal, Ur Leukocyte Esterase 25 H, Urine RBC 0 SEEN, Urine WBC 0-5 SEEN, Ur Squamous Epith Cells 0-5 SEEN, Urine Bacteria 0 SEEN, Urine Mucus 0 SEEN Imaging Radiology Impression Chest X-Ray 02/12/25 12:44 IMPRESSION: Bilateral breast prostheses are in place, with extensive areas peripheral calcification noted. These areas of calcification limited evaluation of some portions of both lungs. Generalized osteopenia is seen. The cardiomediastinal silhouette is remarkable for a calcified aorta. No evidence of cardiomegaly. Lungs are hyperinflated, but no evidence of pulmonary edema or focal infiltrate is seen. No pleural effusion or pneumothorax is evident. No evidence of acute cardiopulmonary disease. Reading Location: [address] Assessment & Plan Assessment/Plan (1) Hypoxia: (2) COPD (chronic obstructive pulmonary disease): (3) Anxiety: (4) Pulmonary hypertension: (5) Diastolic dysfunction: PLAN: Plan #Hypoxia-multifactorial - Patient with known COPD and is supposed to be on oxygen at home, she only uses this when convenient so suspect part of her progressively increasing shortness of breath and hypoxia is due to noncompliance with oxygen -Additionally she no longer follows with a [employer] and does not have any inhalers at home, does feel little bit better after a nebulizer treatment but no wheezing or recent symptoms that would suggest active COPD exacerbation -Will schedule nebs - Last echo in 2021 showed RVSP of 49 mmHg which is consistent with pulmonary hypertension as well as diastolic dysfunction with EF of 65% - Suspect given patient's noncompliance with her oxygen she likely has worsened pulmonary hypertension, repeating echo - Does have some lower extremity edema but this is not new -Elevate lower extremities - Chest x-ray did not show any edema - proBNP 3400 however previous BNP was 500s so this has been chronically elevated and does not necessarily seem to be an acute change - Patient with dry lips and appears to possibly be a little bit intravascularly depleted and not overloaded so hold off on empiric Lasix - Daily weights, I's and O's - Incentive spirometer - Will check TSH #HTN Urgency - Patient very anxious, systolic blood pressure over 200 on presentation at time of evaluation was 189/106 - Awaiting home med rec completion and will resume home medications, patient still is on PUSHPA will hold however given elevated potassium - Hydralazine as needed - If patient has persistently elevated blood pressures despite improvement in anxiety and breathing may need to consider adjusting home regimen # Mild hyperkalemia - Potassium of 5.2 - Appears dry - Gentle IVF # Anxiety - Appears patient is on Ativan at home, will continue - If not on any additional agent to help with anxiety can consider starting BuSpar or other agent to help lower overall levels of anxiety #Chronic hypoxic resp failure 2/2 COPD - Patient not using any home inhalers or nebulizers, does not follow with a [employer], only uses her home O2 occasionally - Case management social work consult - May benefit from nebulizers on DC and walk test to assess updated oxygen prescription - I/S - Nebs scheduled # History of CVA -Continue home medications pending med reconciliation #Hypothyroidism -Continue Synthroid #DVT ppx: Lovenox subcu Nadira Lorenz MD Charges/Coding Visit Charges Inpatient E&M: 46967 Init Hosp L2
--- NOTE | 2025-02-12 16:06 | ECHOD_ITS ---
Reason For Study Reason For Study: DYSPNEA/SOB Procedure This was a 2D Doppler, Color Flow transthoracic echocardiogram. The study was technically difficult. D/T LT breast implant. Exam performed portable in patient room. Left Ventricle Normal LV size. The left ventricular ejection fraction is 65 %. Stage 1 diastolic dysfunction. No regional wall motion abnormalities noted. Right Ventricle Normal RV size. Normal systolic function. Atria The left atrium is mildly enlarged. Normal right atrium. Mitral Valve There is moderate mitral annular calcification. Mild (1+) eccentric mitral valve insufficiency. Tricuspid Valve Normal tricuspid valve. Mild (1+) tricuspid valve insufficiency. Aortic Valve Trisinus/trileaflet aortic valve. Mild focal aortic valve calcification. Pulmonic Valve Normal pulmonic valve. Great Vessels Normal aortic root. The pulmonary artery is normal size. Inferior vena cava collapse with respiration. Pericardium/Pleural No pericardial effusion. MMode/2D Measurements & Calculations LVIDd: 3.2 cm IVSd: 1.3 cm Ao root diam: 3.2 cm LVIDs: 1.6 cm LVPWd: 1.00 cm RVDd: 3.4 cm FS: 49.4 % LAV(MOD-bp): 58.6 ml LVAd ap4: 15.8 cm2 LVAd ap2: 12.6 cm2 LAV(MOD-bp) Indexed: 42.4 ml/m2 LVLd ap4: 6.0 cm LVLd ap2: 6.3 cm LAV(MOD-sp2): 56.6 ml EDV(MOD-sp4): 35.5 ml EDV(MOD-sp2): 22.4 ml LAV(MOD-sp4): 61.9 ml EDV(sp4-el): 35.4 ml EDV(sp2-el): 21.6 ml LVAs ap4: 8.1 cm2 LVAs ap2: 6.4 cm2 LVLs ap4: 5.5 cm LVLs ap2: 5.3 cm ESV(MOD-sp4): 10.9 ml ESV(MOD-sp2): 7.5 ml ESV(sp4-el): 10.0 ml ESV(sp2-el): 6.6 ml EF(MOD-sp4): 69.4 % EF(MOD-sp2): 66.4 % EF(sp4-el): 71.8 % SV(MOD-sp4): 24.6 ml SV(MOD-sp2): 14.9 ml SV(sp4-el): 25.4 ml SI(MOD-sp4): 17.8 ml/m2 SI(MOD-sp2): 10.8 ml/m2 LA A4 area: 20.6 cm2 LA dimension(2D): 3.5 cm RA A4 area: 15.4 cm2 TAPSE: 2.5 cm Time Measurements MV dec time: 0.31 sec Doppler Measurements & Calculations MV E max gerald: 65.9 cm/sec Lat Peak E' Gerald: 5.4 cm/sec Med Peak E' Gerald: 5.4 cm/sec MV A max geradl: 98.9 cm/sec E/E' lat: 12.2 E/E' med: 12.3 MV E/A: 0.67 Ao V2 max: 144.1 cm/sec LV V1 max: 100.2 cm/sec PA V2 max: 73.4 cm/sec Ao max P.3 mmHg LV V1 max P.0 mmHg Ao V2 mean: 90.6 cm/sec LV V1 mean P.0 mmHg Ao mean P.7 mmHg LV V1 mean: 66.6 cm/sec Ao V2 VTI: 27.7 cm LV V1 VTI: 19.2 cm AV (velocity ratio): 0.69 TR max gerald: 190.7 cm/sec TR max P.9 mmHg ECHO/Echo Complete Interpretation Summary Normal LV size. The left ventricular ejection fraction is 65 %. There is moderate mitral annular calcification. Mild (1+) eccentric mitral valve insufficiency. The left atrium is mildly enlarged. Stage 1 diastolic dysfunction. Mild (1+) tricuspid valve insufficiency. Ordering Physician: Nadira Lorenz Referring Physician: Duncan Boateng Performed By: Lavonne Skinner RDCS, RVT
--- NOTE | 2025-02-12 16:23 | ED.RN ---
pt and family member are unaware of home medications. pt stated she skipped all of her meds this AM because she forgot to take them
--- OUTSIDE RECORDS SUMMARY | 2025-02-12 17:08 | XMS RPT_ITS | CCD ---
Author Organization [facility] Care Team Providers [employer] Sales Manager Name Role Phone JAMIE BOATENG MD Primary Care Physician Jamie Boateng Primary Care Provider [phone] Unavailable Primary Care Provider Dale Dr. Jamie Boateng Primary Care Provider Dr. Miah hGotra Attending Provider Dr. Gary Hyman Referring Provider Dr. Lucas Meza Emergency Provider Dr. Carlie Granados Admit Provider Dr. Carlie Granados Other Provider Dr. Ian Iyer Attending Provider Dr. Ian Iyer Other Provider Dr. Gary Hyman Other Provider Dr. Gary Hyman Attending Provider Dr. Felisha Goodman Attending Provider Dr. Felisha Goodman Other Provider Dr. Jamie Boateng Primary Care Provider Dr. Malini Bruce Emergency Provider Dr. Felisha Goodman Admit Provider Dr. Felisha Goodman Attending Provider Dr. Felisha Goodman Other Provider Dr. Harley Perez Attending Provider Dr. Harley Perez Other Provider JAMIE BOATENG MD Attending Unavailable JAMIE BOATENG MD Primary Care Unavailable JAMIE BOATENG MD Attending Unavailable JAMIE BOATENG MD Primary Care Unavailable JAMIE BOATENG MD Attending Unavailable JAMIE BOATENG MD Primary Care Unavailable JAMIE BOATENG MD Attending Unavailable JAMIE BOATENG MD Primary Care Unavailable Jamie Boateng Primary Care Unavailable Jamie Boateng Attending Unavailable Jamie Boateng Referring Unavailable Shailesh Ramírez Attending Unavailable Jamie Boateng Primary Care Unavailable Jamie Boateng Primary Care Unavailable Jamie Boateng Attending Unavailable Jamie Boateng Referring Unavailable JAMIE BOATENG MD Attending Unavailable JAMIE BOATENG MD Primary Care Unavailable JAMIE BOAETNG MD Attending Unavailable JAMIE BOATENG MD Primary Care Unavailable JAMIE BOATENG MD Primary Care Unavailable JAMIE BOATENG MD Attending Unavailable Allergies Allergy Classification Reported Allergen(s) Allergy Type Date of Onset Reaction(s) Facility (11 sources) Mirtazapine; Translations: [mirtazapine] Drug Allergy unknown [facility] (7 sources) Meperidine Drug Allergy 06-05-2021 Rash [facility] (1 source) Meperidine Drug Allergy 12-06-2023 [facility] Medications Current Medications Medication Drug Class(es) Dates Sig (Normalized) Sig (Original) acetaminophen 500 mg oral tablet (3 sources) Start: 06-26-2021 acetaminophen (TYLENOL) tablet 1,000 mg Start: 06-26-2021 take 650 mg by mouth every four hours for pain 650 mg, Oral, EVERY 4 HOURS PRN, Other, Pain (1-10), Starting on Tue06/26/21 at 1438 Give in addition to any other pain medication ordered at same time for any pain indication. Start: 06-06-2021 acetaminophen (TYLENOL) tablet 1,000 mg acetaminophen 325 mg / HYDROcodone bitartrate 5 mg oral tablet (15 sources) Opioid Agonist Start: 11-15-2024 End: 12-15-2024 take 1 tablet by mouth four times daily as needed for pain acetaminophen-hydrocodone 325 mg-5 mg oral tablet Dose = 1 tab(s), Oral, QID, PRN for pain, # 120 tab(s), 0 Refill(s), Pharmacy: [facility], Chronic back pain greater than 3 months duration, 159, cm, 09/14/24 11:41:00 EDT, Height, 39, kg, 09/14/24 11:41:00 EDT, Dosing Weight Start Date: 11/15/24 Stop Date: 12/15/24 Status: Ordered Medication Dispense Status: Completed Quantity: 120.0 Unit: tab(s) Total Allowed Fills: 1 Fills Dispensed: 0 Indications: Dorsalgia, unspecified; Start: 01-27-2024 End: 03-25-2024 take 1 tablet by mouth every six hours as needed for pain acetaminophen-hydrocodone 325 mg-5 mg or al tablet Dose = 1 tab(s), Oral, q6h, PRN for pain, # 120 tab(s), 0 Refill(s), [facility]: [facility], Chronic back pain greater than 3 months duration, 159, cm, 02/24/24 11:23:00 EDT, Height, 37.4, kg, 02/24/24 11:23:00 EDT, Dosing Weight Start Date: 02/24/24 Stop Date: 03/25/24 Status: Ordered Start: 08-27-2023 End: 09-26-2023 take 1 tablet by mouth every six hours as needed for pain acetaminophen-hydrocodone 325 mg-5 mg or al tablet Dose = 1 tab(s), Oral, q6h, PRN for pain, # 120 tab(s), 0 Refill(s), [facility]: [facility] , Chronic back pain greater than 3 months duration, 159, cm, 08/10/23 13:47:00 EDT, Height, 38.6, kg, 08/10/23 13:47:00 EDT, Dosing Weight Start Date: 08/27/23 Stop Date: 09/26/23 Status: Ordered Start: 06-10-2022 take 1 tablet by chandra th every six hours Hydrocodone-Acetaminophen Active 1 TABLE T PO EVERY 6 HOURS June 10, 2022 12:00am Start: 11-27-2021 End: 12-27-2021 take 1 tablet by mouth every six hours as needed for pain acetaminophen-hydrocodone 325 mg-5 mg or al tablet Dose = 1 tab(s), Oral, q6h, PRN for pain, # 120 tab(s), 0 Refill(s), [facility]: [facility] , Chronic back pain greater than 3 months duration, 165.1, cm, 10/20/21 9:13:00 EDT, Height, 41.3, kg, 10/20/21 9:13:00 EDT, Dosing Weight Start Date: 11/27/21 Stop Date: 12/27/21 Status: Ordered Start: 06-05-2021 take 1 tablet by chandra th every six hours Hydrocodone-Acetaminophen Active 1 TABLE T PO EVERY 6 HOURS June 05, 2021 4:54pm Start: 04-29-2021 End: 06-25-2021 take 1 tablet by mouth every six hours as needed for pain acetaminophen-hydrocodone 325 mg-5 mg or al tablet Dose = 1 tab(s), Oral, q6h, PRN for pain, # 120 tab(s), 0 Refill(s), [facility]acy: [facility] , Chronic back pain greater than 3 months duration, 163, cm, 01/23/21 13:31:00 EDT, Height, 40.3, kg, 01/23/21 13:31:00 EDT, Dosing Weight Start Date: 05/26/21 Stop Date: 06/25/21 Status: Ordered [id number] 200 actuat albuterol 0.09 mg/actuat metered dose inhaler (10 sources) beta2-Adrenergic Agonist Start: 05-20-2023 take 2 puff(s) by inhalation every four hours as needed for wheezing ProAir HFA MDI (90 mcg/inh) inhalation aerosol 2 puff(s), Inhalation, q4h, PRN as needed for wheezing, # 8.5 gram(s), 5 Refill(s), [facility]acy: [facility], Generalized anxiety disorder Chronic back pain greater than 3 months duration, 159, cm, 05/20/23 13:31:00 EST, Height, kg, 05/20/23 13:31:00 EST, Dosing Weight Start Date: 05/20/23 Status: Ordered Start: 10-20-2021 take 2 puff(s) by in halation every four hours as needed for wheezing ProAir HFA MDI (90 mcg/inh) inhalation aerosol 2 puff(s), Inhalation, q4h, PRN as needed for wheezing, # 8.5 gram(s), 0 Refill(s), [facility]: [id number], Chronic bronchitis with emphysema Acute bronchitis, 165.1, cm, 10/20/21 9:13:00 EDT, Height, kg, 10/20/21 9:13:00 EDT, Dosing Weight Start Date: 10/20/21 Status: Ordered Start: 02-09-2021 take 2 puff(s) by in halation every four hours as needed for wheezing ProAir HFA MDI (90 mcg/inh) inhalation aerosol 2 puff(s), Inhalation, q4h, PRN as needed for wheezing, # 8.5 gram(s), 0 Refill(s), [facility]acy: [facility], Chronic bronchitis with emphysema Acute bronchitis, 163, cm, 01/23/21 13:31:00 EDT, Height, kg, 01/23/21 13:31:00 EDT, Dosing Weight Start Date: 02/09/21 Status: Ordered albuterol MDI (90 mcg/inh) CFC free inhalation aerosol (7 sources) Start: 06-14-2023 take 2 puff(s) by inhalation every four hours as needed for wheezing albuterol MDI (90 mcg/inh) CFC free inhalation aerosol 2 puff(s), Inhalation, q4h, PRN as needed for wheezing, # 18 gram(s), 0 Refill(s), [facility]acy: [facility], Productive cough, 159, cm, 06/14/23 15:04:00 EST, Height, kg, 06/14/23 15:04:00 EST, Dosing Weight Start Date: 06/14/23 Status: Ordered Medication Dispense Status: Completed Quantity: 18.0 Unit: g Total Allowed Fills: 1 Fills Dispensed: 0 Indications: Other specified cough; Start: 06-14-2023 take 2 puff(s) by in halation every four hours as needed for wheezing albuterol MDI (90 mcg/inh) CFC free inhalation aerosol 2 puff(s), Inhalation, q4h, PRN as needed for wheezing, # 18 gram(s), 0 Refill(s), [facility]acy: [facility], Productive cough, 159, cm, 06/14/23 15:04:00 EST, Height, kg, 06/14/23 15:04:00 EST, Dosing Weight Start Date: 06/14/23 Status: Ordered amoxicillin 875 mg / clavulanate 125 mg oral tablet (2 sources) Penicillin-class Antibacterial Start: 06-13-2022 take 875 mg by mouth twice daily at mealtime Amoxicillin-Pot Clavulanate Active 875 MG PO TWICE A DAY June 13, 2022 12:00am start 06/14/22, take with food aspirin 81 mg delayed release oral tablet (1 source) Platelet Aggregation Inhibitor, Nonsteroidal Anti-inflammatory Drug Start: 09-18-2021 take 81 mg by mouth at breakfast Aspirin Active 81 MG PO WITH BREAKFAST 0 September 18, 2021 11:42am calcium citrate 1040 mg oral tablet (3 sources) Start: 11-03-2018 calcium (as calcium citrate) 250 mg oral tablet Dose : 250 mg = 1 tab(s), Oral, BID, # 60 tab(s), 0 Refill(s) Start Date: 11/03/18 Status: Ordered cephalexin 250 mg oral tablet (1 source) Cephalosporin Antibacterial Start: 05-15-2021 End: 05-22-2021 cephalexin 250 mg oral tablet Dose : 250 mg = 1 tab(s), Oral, QID, X 7 day(s), # 28 tab(s), 0 Refill(s), 05/22/21 15:24:00 EST, UTI - Urinary tract infection, 40.3 Start Date: 05/15/21 Stop Date: 05/22/21 Status: Ordered clopidogrel 75 mg oral tablet (19 sources) [id number] Platelet Inhibitor Start: 11-13-2024 clopidogrel 75 mg oral tablet Dose : 75 mg = 1 tab(s), Oral, qDay, # 90 tab(s), 0 Refill(s), [facility], 159, cm, 09/14/24 11:41:00 EDT, Height, kg, 09/14/24 11:41:00 EDT, Dosing Weight Start Date: 11/13/24 Status: Ordered Medication Dispense Status: Completed Quantity: 90.0 Unit: tab(s) Total Allowed Fills: 1 Fills Dispensed: 0 Start: 05-20-2023 End: 05-14-2024 clopidogrel 75 mg oral table t Dose : 75 mg = 1 tab(s), Oral, qDay, X 90 day(s), # 90 tab(s), 3 Refill(s), 05/14/24 2:05:00 PM EST, Pharmacy: [facility], 159, cm, 05/20/23 13:31:00 EST, Height, kg, 05/20/23 13:31:00 EST, Dosing Weight Start Date: 05/20/23 Stop Date: 05/14/24 Status: Ordered Start: 09-07-2021 End: 11-08-2022 clopidogrel 75 mg oral table t Dose : 75 mg = 1 tab(s), Oral, qDay, X 30 day(s), # 30 tab(s), 11 Refill(s), 11/08/22 15:16:00 EDT, Pharmacy: [facility], 165.1, cm, 10/20/21 9:13:00 EDT, Height, kg, 10/20/21 9:13:00 EDT, Dosing Weight Start Date: 11/13/21 Stop Date: 11/08/22 Status: Ordered Start: 08-25-2020 take 75 mg by mouth once daily 75 mg, Oral, DAILY, First dose on 06/27/21 at 0900 collagenase 0.25 unt/mg topical ointment (1 source) Collagen-specific Enzyme Start: 06-29-2021 collagenase ointment copper (as bisglycinate)-zi nc (as bisglycinate) 2 mg-25 mg oral capsule (3 sources) Start: 02-26-2019 take 1 capsule by mouth once daily copper (as bisglycinate)-z inc (as bisglycinate) 2 mg-25 mg oral capsule Dose = 1 cap(s), Oral, qDay, # 90 cap(s), 0 Refill(s) Start Date: 02/26/19 Status: Ordered 0.4 ml enoxaparin sodium 100 mg/ml prefilled syringe (3 sources) Low Molecular Weight Heparin Start: 06-27-2021 inject 40 mg by subcutaneous injection once daily 40 mg, SubCUTAneous, DAILY, First dose on 06/27/21 at 0900 Start: 06-09-2021 End: 06-22-2021 enoxaparin (LOVENOX) 40 MG/0 .4ML injection Inject 0.4 mLs into the skin daily for 10 days Start on 06/22/2021 3 06/12/2021 06/22/2021 Active erythromycin 0.005 mg/mg ophthalmic ointment (1 source) Macrolide, Macrolide Antimicrobial Start: 06-08-2021 erythromycin (ROMYCIN) ophthalmic ointment ferrous sulfate 325 mg oral tablet (7 sources) Start: 09-07-2021 take 1 tablet by mouth once daily Ferrous Sulfate (Ferosul) 325 mg (65 mg iron) Tablet Active 325 MG PO DAILY September 07, 2021 2:02pm Start: 06-15-2021 End: 06-28-2021 take 325 mg by mouth twice daily at mealtime 325 mg, Oral, 2 TIMES DAILY WITH MEALS, First dose on 06/27/21 at 0800 Folic Acid (3 sources) Start: 11-03-2018 folic acid qDa y, 0 Refill(s) Start Date: 11/03/18 Status: Ordered Food Supplemt, Lactose-Reduced (Ensure Enlive) 0.08 gram-1.5 kcal/mL Liquid (1 source) Start: 09-18-2021 take 1 mL by mouth four times daily Food Supplemt, Lactose-Reduced (Ensure Enlive) 0.08 gram-1.5 kcal/mL Liquid Active 120 ML PO 4 TIMES DAILY 0 September 18, 2021 11:44am Hydrocortisone (3 sources) Corticosteroid Start: 11-23-2019 hydrocortisone 2.5% topical cream Apply 1 yousif, Topical, TID, apply in a thin film to the affected skin and rub in gently and completely, # 30 gram(s), 0 Refill(s), Pharmacy: [facility], 162, cm, 11/16/19 13:46:00 EDT, Height, 40.9, kg, 11/16/19 13:46:00 EDT, Dosing Weight Start Date: 11/23/19 Status: Ordered levothyroxine sodium 0.075 mg oral tablet (20 sources) l-Thyroxine Start: 12-14-2023 levothyroxine 75 mcg (0.075 mg) oral tablet Dose : 75 mcg = 1 tab(s), Oral, qDay, # 100 tab(s), 3 Refill(s), Pharmacy: [facility], 159, cm, 11/11/23 11:16:00 EDT, Height, kg, 11/11/23 11:16:00 EDT, Dosing Weight Start Date: 12/14/23 Status: Ordered Medication Dispense Status: Completed Quantity: 100.0 Unit: tab(s) Total Allowed Fills: 4 Fills Dispensed: 0 Start: 05-20-2023 levothyroxine 75 mcg (0.075 mg) oral tablet Dose : 75 mcg = 1 tab(s), Oral, qDay, # 90 tab(s), 3 Refill(s), Pharmacy: [facility], 159, cm, 05/20/23 13:31:00 EST, Height, kg, 05/20/23 13:31:00 EST, Dosing Weight Start Date: 05/20/23 Status: Ordered Start: 10-20-2021 End: 10-15-2022 levothyroxine 75 mcg (0.075 mg) oral tablet Dose : 75 mcg = 1 tab(s), Oral, qDay, # 30 tab(s), 11 Refill(s), [facility]: [id number], 165.1, cm, 10/20/21 9:13:00 EDT, Height, kg, 10/20/21 9:13:00 EDT, Dosing Weight Start Date: 10/20/21 Stop Date: 10/15/22 Status: Ordered Start: 06-05-2021 take 75 ug by mouth once daily Levothyroxine Active 75 MCG PO DAILY June 05, 2021 12:00am Start: 05-26-2021 levothyroxine 75 mcg (0.075 mg) oral tablet Dose : 75 mcg = 1 tab(s), Oral, qDay, # 90 tab(s), 1 Refill(s), Pharmacy: [facility], 163, cm, 01/23/21 13:31:00 EDT, Height, kg, 01/23/21 13:31:00 EDT, Dosing Weight Start Date: 05/26/21 Status: Ordered Start: 01-23-2021 levothyroxine 75 mcg (0.075 mg) oral tablet Dose : 75 mcg = 1 tab(s), Oral, qDay, # 90 tab(s), 1 Refill(s), [facility]: [facility], 163, cm, 01/23/21 13:31:00 EDT, Height, kg, 01/23/21 13:31:00 EDT, Dosing Weight Start Date: 01/23/21 Status: Ordered lidocaine 0.04 mg/mg medicated patch (1 source) Antiarrhythmic, Amide Local Anesthetic Start: 06-06-2021 lidocaine 4 % external patch 2 patch lisinopril 20 mg oral tablet (20 sources) Angiotensin Converting Enzyme Inhibitor Start: 08-16-2024 lisinopril 20 mg oral tablet Dose : 20 mg = 1 tab(s), Oral, Daily, # 90 tab(s), 3 Refill(s), [facility]: [facility], 159, cm, 06/15/24 16:15:00 EST, Height, kg, 06/15/24 16:15:00 EST, Dosing Weight Start Date: 08/16/24 Status: Ordered Medication Dispense Status: Completed Quantity: 90.0 Unit: tab(s) Total Allowed Fills: 4 Fills Dispensed: 0 Start: 02-24-2024 lisinopril 20 mg oral tablet Dose : 20 mg = 1 tab(s), Oral, Daily, # 90 tab(s), 3 Refill(s), [facility]: [facility], 159, cm, 02/24/24 11:23:00 EDT, Height, kg, 02/24/24 11:23:00 EDT, Dosing Weight Start Date: 02/24/24 Status: Ordered Start: 05-20-2023 lisinopril 20 mg oral tablet Dose : 20 mg = 1 tab(s), Oral, Daily, # 90 tab(s), 3 Refill(s), [facility]: [facility], 159, cm, 05/20/23 13:31:00 EST, Height, kg, 05/20/23 13:31:00 EST, Dosing Weight Start Date: 05/20/23 Status: Ordered Start: 08-25-2020 End: 11-14-2022 take 20 mg by mouth once daily Lisinopril Active 20 MG PO DAILY June 05, 2021 12:00am LORazepam 2 mg oral tablet (20 sources) Benzodiazepine Start: 09-14-2024 End: 12-13-2024 LORazepam 2 mg oral tablet Dose : 2 mg = 1 tab(s), Oral, QID, # 120 tab(s), 2 Refill(s), Pharmacy: [facility], Generalized anxiety disorder Panic disorder, 159, cm, 09/14/24 11:41:00 EDT, Height, 39, kg, 09/14/24 11:41:00 EDT, Dosing Weight Start Date: 09/14/24 Stop Date: 12/13/24 Status: Ordered Medication Dispense Status: Completed Quantity: 120.0 Unit: tab(s) Total Allowed Fills: 3 Fills Dispensed: 0 Indications: Generalized anxiety disorder; Panic disorder [episodic paroxysmal anxiety]; Start: 01-27-2024 End: 04-26-2024 LORazepam 2 mg oral tablet D ose : 2 mg = 1 tab(s), Oral, QID, # 120 tab(s), 2 Refill(s), [facility]: [facility], Generalized anxiety disorder Panic disorder, 159, cm, 11/11/23 11:16:00 EDT, Height, 36.3, kg, 11/11/23 11:16:00 EDT, Dosing Weight Start Date: 01/27/24 Stop Date: 04/26/24 Status: Ordered Start: 08-10-2023 End: 11-08-2023 LORazepam 2 mg oral tablet D ose : 2 mg = 1 tab(s), Oral, QID, # 120 tab(s), 2 Refill(s), [facility]: [facility], Generalized anxiety disorder Panic disorder, 159, cm, 08/10/23 13:47:00 EDT, Height, 38.6, kg, 08/10/23 13:47:00 EDT, Dosing Weight Start Date: 08/10/23 Stop Date: 11/08/23 Status: Ordered Start: 06-10-2022 take 2 mg by mouth t hree times daily Lorazepam Active 2 MG PO THREE TIMES A DAY June 10, 2022 12:00am Start: 11-27-2021 End: 02-25-2022 LORazepam 2 mg oral tablet D ose : 2 mg = 1 tab(s), Oral, TID, # 90 tab(s), 2 Refill(s), [facility]: [facility], Generalized anxiety disorder, 165.1, cm, 10/20/21 9:13:00 EDT, Height, 41.3, kg, 10/20/21 9:13:00 EDT, Dosing Weight Start Date: 11/27/21 Stop Date: 02/25/22 Status: Ordered Start: 09-18-2021 take 1 mg by mouth twice daily Lorazepam Active 1 MG PO TWICE A DAY 0 September 18, 2021 11:45am Start: 06-15-2021 End: 07-17-2021 take 0.5 mg by mouth every eight hours as needed for anxiety 0.5 mg, Oral, EVERY 8 HOURS PRN, Anxiety, Starting on Tue06/26/21 at 2242 Start: 06-06-2021 End: 06-15-2021 take 2 mg by mouth every eight hours as needed for anxiety 2 mg, Oral, EVERY 8 HOURS PRN, Anxiety, Starting on Tue06/06/21 at 0009 Start: 06-05-2021 take 2 mg by mouth t hree times daily Lorazepam Active 2 MG PO THREE TIMES A DAY June 05, 2021 4:54pm Start: 04-28-2021 End: 06-25-2021 take 1 tablet by mouth every eight hours as needed for anxiety LORazepam (ATIVAN) 2 MG tablet Indications: Closed fracture of left hip requiring operative repair, initial encounter ([facility]) Take 1 tablet by mouth every 8 hours as needed for Anxiety for up to 7 days. 21 tablet 0 06/08/2021 06/17/2021 Discontinued (Stop Taking at Discharge) Magnesium (3 sources) Start: 11-03-2018 take 1 mg by mouth once daily Magnesium 250 mg tablet mg = tab(s), Oral, qDay, 0 Refill(s) Start Date: 11/03/18 Status: Ordered metoprolol tartrate 50 mg oral tablet (20 sources) beta-Adrenergic Inessa Start: 05-20-2023 End: 02-18-2025 Metoprolol Succinate ER 50 mg oral TABLET extended release Dose : 50 mg = 1 tab(s), Oral, qDay, # 90 tab(s), 3 Refill(s), Pharmacy: [facility], 159, cm, 02/24/24 11:23:00 EDT, Height, kg, 02/24/24 11:23:00 EDT, Dosing Weight Start Date: 02/24/24 Stop Date: 02/18/25 Status: Ordered Medication Dispense Status: Completed Quantity: 90.0 Unit: tab(s) Total Allowed Fills: 4 Fills Dispensed: 0 Start: 10-20-2021 End: 10-15-2022 Metoprolol Succinate ER 50 m g oral TABLET extended release Dose : 50 mg = 1 tab(s), Oral, qDay, # 30 tab(s), 11 Refill(s), [facility], 165.1, cm, 10/20/21 9:13:00 EDT, Height, kg, 10/20/21 9:13:00 EDT, Dosing Weight Start Date: 10/20/21 Stop Date: 10/15/22 Status: Ordered Start: 06-05-2021 take 50 mg by mouth once daily in the evening Metoprolol Succinate Active 50 MG PO EVERY EVENING June 05, 2021 12:00am Start: 08-25-2020 End: 08-20-2021 Metoprolol Succinate ER 50 m g oral TABLET extended release Dose : 50 mg = 1 tab(s), Oral, qDay, # 90 tab(s), 3 Refill(s), [facility], 162.6, cm, 05/16/20 13:23:00 EST, Height, kg, 05/16/20 13:23:00 EST, Dosing Weight Start Date: 08/25/20 Stop Date: 08/20/21 Status: Ordered montelukast 10 mg oral tablet (20 sources) Leukotriene Receptor Antagonist Start: 02-24-2024 montelukast 10 mg oral tablet Dose : 10 mg = 1 tab(s), Oral, qDay, # 90 tab(s), 3 Refill(s), Pharmacy: [facility], 159, cm, 02/24/24 11:23:00 EDT, Height, kg, 02/24/24 11:23:00 EDT, Dosing Weight Start Date: 02/24/24 Status: Ordered Medication Dispense Status: Completed Quantity: 90.0 Unit: tab(s) Total Allowed Fills: 4 Fills Dispensed: 0 Start: 05-20-2023 montelukast 10 mg oral tablet Dose : 10 mg = 1 tab(s), Oral, qDay, # 90 tab(s), 3 Refill(s), [facility]: [facility], 159, cm, 05/20/23 13:31:00 EST, Height, kg, 05/20/23 13:31:00 EST, Dosing Weight Start Date: 05/20/23 Status: Ordered Start: 09-23-2020 End: 10-15-2022 take 1 tablet by mouth at bedtime Montelukast (Singulair) 10 mg Tablet Active 10 MG PO AT BEDTIME June 05, 2021 12:00am naloxegol 25 mg oral tablet (4 sources) Opioid Antagonist Start: 08-10-2023 Movantik 25 mg oral tablet Dose : 25 mg = 1 tab(s), Oral, qDayAC, # 30 tab(s), 5 Refill(s), [facility]: [facility], Chronic back pain greater than 3 months duration Constipation due to pain medication, 159, cm, 08/10/23 13:47:00 EDT, Height, kg, 08/10/23 13:47:00 EDT, Dosing Weight Start Date: 08/10/23 Status: Ordered nicotine 2 mg chewing gum (1 source) Cholinergic Nicotinic Agonist Start: 06-06-2021 take 2 mg by mouth every two hours as needed 2 mg, Oral, EVERY 2 HOURS PRN, Smoking cessation, Starting on 06/06/21 at 0012 ondansetron (ZOFRAN-ODT) disintegrating tablet 4 mg (2 sources) Start: 06-26-2021 ondansetron (ZOFRAN-ODT) disintegrating tablet 4 mg Start: 06-06-2021 ondansetron (Z OFRAN-ODT) disintegrating tablet 4 mg 24 hr oxybutynin chloride 5 mg extended release oral tablet (14 sources) Cholinergic Muscarinic Antagonist Start: 05-20-2023 End: 02-18-2025 take 1 tablet by mouth every hour, then take 1 tablet by mouth once daily oxybutynin 5 mg/24 hours oral tablet, extended release Dose : 5 mg = 1 tab(s), Oral, qDay, # 90 tab(s), 3 Refill(s), [facility]: [facility], 159, cm, 02/24/24 11:23:00 EDT, Height, kg, 02/24/24 11:23:00 EDT, Dosing Weight Start Date: 02/24/24 Stop Date: 02/18/25 Status: Ordered Medication Dispense Status: Completed Quantity: 90.0 Unit: tab(s) Total Allowed Fills: 4 Fills Dispensed: 0 Start: 06-10-2022 take 5 mg by mouth once daily Oxybutynin Chloride Active 5 MG PO DAILY June 10, 2022 12:00am Start: 10-20-2021 take 1 tablet by chandra th every hour, then take 1 tablet by mouth once daily oxybutynin 5 mg/24 hours oral tablet, extended release Dose : 5 mg = 1 tab(s), Oral, qDay, # 30 tab(s), 11 Refill(s), [facility]: [id number], 165.1, cm, 10/20/21 9:13:00 EDT, Height, kg, 10/20/21 9:13:00 EDT, Dosing Weight Start Date: 10/20/21 Status: Ordered Start: 06-05-2021 take 5 mg by mouth once daily Oxybutynin Chloride Active 5 MG PO DAILY June 05, 2021 8:00pm Start: 05-27-2021 take 1 tablet by chandra th every hour, then take 1 tablet by mouth once daily oxybutynin 5 mg/24 hours oral tablet, extended release Dose : 5 mg = 1 tab(s), Oral, qDay, # 30 tab(s), 3 Refill(s), [facility]: [id number], 163, cm, 01/23/21 13:31:00 EDT, Height, kg, 01/23/21 13:31:00 EDT, Dosing Weight Start Date: 05/27/21 Status: Ordered oxyCODONE hydrochloride 5 mg oral tablet (4 sources) Opioid Agonist Start: 06-29-2021 End: 07-02-2021 take 1 tablet by mouth every four hours as needed for pain oxyCODONE (ROXICODONE) 5 MG immediate release tablet Indications: Dislocation of left hip, initial encounter ([facility]) Take 1 tablet by mouth every 4 hours as needed for Pain for up to 3 days. 12 tablet 0 06/29/2021 07/02/2021 Active Start: 06-26-2021 oxyCODONE (KIMI ICODONE) immediate release tablet 5 mg Start: 06-08-2021 End: 06-13-2021 take 0.5 tablet by mouth every four hours as needed for pain oxyCODONE (ROXICODONE) 5 MG immediate release tablet Indications: Closed fracture of left hip requiring operative repair, initial encounter ([facility]) Take 0.5 tablets by mouth every 4 hours as needed for Pain for up to 5 days. 20 tablet 0 06/08/2021 06/13/2021 Start: 06-06-2021 oxyCODONE (KIMI ICODONE) immediate release tablet 2.5 mg phenazopyridine hydrochloride 200 mg oral tablet (1 source) Start: 03-02-2024 End: 03-07-2024 Pyridium 200 mg oral tablet Dose : 200 mg = 1 tab(s), Oral, TID, X 5 day(s), # 15 tab(s), 0 Refill(s), 03/07/24 3:27:00 PM EST, Pharmacy: [facility] [id number], Urinary pain, 159, cm, 02/24/24 11:23:00 EDT, Height, kg, 02/24/24 11:23:00 EDT, Dosing Weight Start Date: 03/02/24 Stop Date: 03/07/24 Status: Ordered phenol 14 mg/ml mouthwash (1 source) Start: 06-15-2021 phenol 1.4 % m outh spray 1 spray polyethylene glycol [id number] mg powder for oral solution (2 sources) Osmotic Laxative Start: 06-26-2021 17 g, Oral, D AILY PRN, Constipation, Starting on 06/26/21 at 1438 First line therapy for constipation Start: 06-06-2021 17 g, Oral, DA MAL PRN, Constipation, Starting on 06/06/21 at 0010 First line therapy for constipation Potassium Chloride (3 sources) Start: 11-03-2018 potassium chloride 99 mg oral tablet Dose : 99 mg = 1 tab(s), Oral, qDay, # 100 tab(s), 0 Refill(s) Start Date: 11/03/18 Status: Ordered QUEtiapine 25 mg oral tablet (1 source) Atypical Antipsychotic Start: 09-18-2021 take 50 mg by mouth at bedtime Quetiapine Active 50 MG PO AT BEDTIME 0 September 18, 2021 11:53am 5 ml sodium chloride 9 mg/ml injection (11 sources) Start: 06-26-2021 take 1 dose intravenously twice daily 5-40 mL, IntraVENous, EVERY 12 HOURS SCHEDULED (2 times per day), First dose on Tue06/26/21 at 2100 For Line Patency: Peripheral IV = 5 mL; Midline or Central Line = 10 mL/lumen. If following IV push medication, administer flush at same rate as the IV push. Flush volume is determined by type of infusion therapy being given. &nb sp;For non-viscous solutions use: Perip heral IV = 5 mL Midline or Central Line = 10 mL/lumen & nbsp;For viscous solutions (i.e. blood components, parenteral nutrition, contrast media, or after obtaining blood sample) use: Perip heral IV = 10 mL Midline or Central Line = 20 mL/lumen Start: 06-26-2021 End: 06-30-2021 IntraVENous, at 75 mL/hr, CONTINUOUS, Starting on Tue06/26/21 at 1500 Start: 06-26-2021 take 25 mL intraveno usly every hour as needed 25 mL, IntraVENous, at 100 mL/hr, PRN, If patient receiving piggyback infusions without ordered maintenance IV fluids or with frequent/long duration piggyback infusions, Starting on Tue06/26/21 at 1438 Administer at the same rate as the piggyback being infused. Start: 06-26-2021 take 5-40 mL intrave nously once as needed 5-40 mL, IntraVENous, PRN, Line Care, After every IV line use, Starting on Tue06/26/21 at 1438 For Line Patency: Peripheral IV = 5 mL; Midline or Central Line = 10 mL/lumen. If following IV push medication, administer flush at same rate as the IV push. Flush volume is determined by type of infusion therapy being given. For non-viscous solutions use: Peripheral IV = 5 mL Midline or Central Line = 10 mL/lumen For viscous solutions (i.e. blood components, parenteral nutrition, contrast media, or after obtaining blood sample) use: Peripheral IV = 10 mL Midline or Central Line = 20 mL/lumen Start: 06-15-2021 End: 06-17-2021 0.9 % sodium chloride infusi on Start: 06-08-2021 End: 06-10-2021 0.9 % sodium chloride infusi on Start: 06-07-2021 End: 06-08-2021 0.9 % sodium chloride bolus Start: 06-06-2021 take 1 dose intraven ously twice daily 5-40 mL, IntraVENous, EVERY 12 HOURS SCHEDULED (2 times per day), First dose on 06/06/21 at 0900 For Line Patency: Peripheral IV = 5 mL; Midline or Central Line = 10 mL/lumen. If following IV push medication, administer flush at same rate as the IV push. Flush volume is determined by type of infusion therapy being given. For non-viscous solutions use: Peripheral IV = 5 mL Midline or Central Line = 10 mL/lumen For viscous solutions (i.e. blood components, parenteral nutrition, contrast media, or after obtaining blood sample) use: Peripheral IV = 10 mL Midline or Central Line = 20 mL/lumen Start: 06-06-2021 take 25 mL intraveno usly every hour as needed 25 mL, IntraVENous, at 100 mL/hr, PRN, If patient receiving piggyback infusions without ordered maintenance IV fluids or with frequent/long duration piggyback infusions, Starting on 06/06/21 at 0010 Administer at the same rate as the piggyback being infused. Start: 06-06-2021 take 5-40 mL intrave nously once as needed 5-40 mL, IntraVENous, PRN, Line Care, After every IV line use, Starting on 06/06/21 at 0010 For Line Patency: Peripheral IV = 5 mL; Midline or Central Line = 10 mL/lumen. If following IV push medication, administer flush at same rate as the IV push. Flush volume is determined by type of infusion therapy being given. For non-viscous solutions use: Peripheral IV = 5 mL Midline or Central Line = 10 mL/lumen For viscous solutions (i.e. blood components, parenteral nutrition, contrast media, or after obtaining blood sample) use: Peripheral IV = 10 mL Midline or Central Line = 20 mL/lumen traMADol hydrochloride 50 mg oral tablet (1 source) Opioid Agonist Start: 06-26-2021 take 50 mg by mouth every six hours as needed for pain 50 mg, Oral, EVERY 6 HOURS PRN, Pain Moderate (4-6), Starting on Tue06/26/21 at 1438 triamcinolone acetonide 1 mg/ml topical cream (6 sources) Corticosteroid Start: 10-20-2022 triamcinolone 0.1% topical cream 1 application BID PRN x 7 days, may repeat x 1 week after 1 week off, Topical, BID, PRN for itching, # 60 gram(s), 0 Refill(s), Pharmacy: [facility], 160, cm, 10/20/22 17:21:00 EDT, Height, 38.8 Start Date: 10/20/22 Status: Ordered trospium chloride 20 mg oral tablet (3 sources) Cholinergic Muscarinic Antagonist Start: 06-27-2021 End: 06-27-2021 trospium (SANCTURA) tablet 20 mg Start: 06-06-2021 trospium (SANC TURA) tablet 20 mg Vitamin D3 (11 sources) Start: 11-03-2018 Vitamin D3 1 t ab, qDay, 0 Refill(s) Start Date: 11/03/18 Status: Ordered Medication Dispense Status: Completed Total Allowed Fills: 1 Fills Dispensed: 0 Start: 11-03-2018 Vitamin D3 1 t ab, qDay, 0 Refill(s) Start Date: 11/03/18 Status: Ordered Zinc (3 sources) Start: 11-03-2018 take 23 mg by mouth once daily Zinc 23 mg lozenge, Oral, qDay, 0 Refill(s) Start Date: 11/03/18 Status: Ordered Completed/Discontinued Medications Medication Drug Class(es) Dates Sig (Normalized) Sig (Original) ceFAZolin 2000 mg injection (1 source) Cephalosporin Antibacterial Start: 06-08-2021 End: 02-15-2022 2,000 mg, IntraVENous, EVERY 8 HOURS, 3 doses, First dose on Tue06/08/21 at 2100, Last dose on Tue06/09/21 at 1300 docusate sodium 100 mg oral capsule (3 sources) Start: 02-15-2020 End: 06-14-2020 Colace 100 mg oral capsule Dose : 100 mg = 1 cap(s), Oral, BID, PRN as needed for constipation, # 100 cap(s), 3 Refill(s), [facility]acy: [id number], Chronic back pain greater than 3 months duration Panic disorder, 162, cm, 02/15/20 13:31:00 EDT, Height, kg, 02/15/20 13:31:... Start Date: 02/15/20 Stop Date: 06/14/20 Status: Ordered furosemide 20 mg oral tablet (3 sources) Loop Diuretic Start: 02-15-2020 End: 08-13-2020 furosemide 20 mg oral tablet Dose : 20 mg = 1 tab(s), Oral, qDay, # 30 tab(s), 5 Refill(s), Pharmacy: [id number], 162, cm, 02/15/20 13:31:00 EDT, Height, kg, 02/15/20 13:31:00 EDT, Dosing Weight Start Date: 02/15/20 Stop Date: 08/13/20 Status: Ordered 1 ml HYDROmorphone hydrochloride 1 mg/ml cartridge (3 sources) Opioid Agonist Start: 06-26-2021 End: 06-26-2021 HYDROmorphone (DILAUDID) 1 MG/ML injection Start: 06-26-2021 End: 06-26-2021 HYDROmorphone (DILAUDID) inj ection 0.25 mg Start: 06-06-2021 HYDROmorphone (DILAUDID) injection 0.25 mg 1 ml morphine sulfate 4 mg/ml injection (1 source) Opioid Agonist Start: 06-06-2021 End: 06-06-2021 take 2 mg by mouth every four hours as needed for pain 2 mg, IntraVENous, EVERY 4 HOURS PRN, Pain Moderate (4-6), Pain Severe (7-10), Starting on 06/06/21 at 0013 If oral and IV narcotics ordered, use oral first and only use IV if oral is ineffective or cannot take oral. Do Not give oral and IV within 1 hour of each other unless specifically ordered. Problems Active Problems Problem Classification Problem Date Documented Da te Episodic/Chronic Acute bronchitis (7 sources) Acute bronchitis 03-04-2022 Episodic Administrative/social admission (1 source) Poor historian 06-15-2024 Episodic Alcohol-related disorders (18 sources) Alcohol abuse; Translations: [H/O: alcoholism] 08-20-2019 Chronic Anxiety disorders (20 sources) Generalized anxiety disorder; Translations: [Panic disorder] Onset: 08-10-2023 08-20-2019 Chronic Cardiac dysrhythmias (6 sources) Sinus bradycardia; Translations: [Bradycardia, unspecified] Episodic Chronic obstructive pulmonary disease and bronchiectasis (11 sources) 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 Chronic ulcer of skin (1 source) Finding of sacral region; Translations: [Non-pressure chronic ulcer of back with unspecified severity] Chronic Complication of device; implant or graft (6 sources) Disorder of prosthetic joint; Translations: [Dislocation of internal left hip prosthesis, initial encounter] Episodic Deficiency and other anemia (5 sources) Normocytic anemia; Translations: [Anemia, unspecified] 09-07-2021 Episodic Deficiency and other anemia (2 sources) Anemia, unspecified; Translations: [Anemia, unspecified] Episodic Diseases of white blood cells (5 sources) Leukocytosis; Translations: [Elevated white blood cell count, unspecified] 06-05-2021 Chronic Disorders of lipid metabolism (11 sources) Mixed hyperlipidemia 02-26-2019 Chronic Disorders of teeth and jaw (11 sources) Dental abscess 02-26-2019 Episodic Essential hypertension (17 sources) Hypertensive disorder; Translations: [Malignant hypertension] 08-20-2019 Chronic Fluid and electrolyte disorders (5 sources) Hyponatremia; Translations: [Hypo-osmolality and hyponatremia] 06-05-2021 Episodic Fracture of neck of femur (hip) (8 sources) Closed fracture of hip; Translations: [Fracture of unspecified part of neck of left femur, initial encounter for closed fracture] Onset: 06-06-2021 Episodic Genitourinary symptoms and ill-defined conditions (7 sources) Urinary incontinence 10-20-2022 Chronic Joint disorders and dislocations; trauma-related (7 sources) Dislocation of hip joint; Translations: [Unspecified dislocation of left hip, initial encounter] Onset: 06-26-2021 Episodic Malaise and fatigue (1 source) Asthenia; Translations: [Weakness] Onset: 04-30-2021 Episodic Mood disorders (20 sources) Recurrent depression; Translations: [Severe major depression] Onset: 08-10-2023 11-03-2018 Chronic Nutritional deficiencies (10 sources) Nutritional marasmus; 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] Onset: 06-17-2021 Chronic Occlusion or stenosis of precerebral arteries (13 sources) Carotid artery stenosis; Translations: [Occlusion and stenosis of unspecified carotid artery] Onset: 08-10-2023 08-20-2019 Chronic Other connective tissue disease (1 source) Pain in lower limb 09-14-2024 Episodic Other diseases of bladder and urethra (7 sources) 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 Other gastrointestinal disorders (11 sources) Irritable bowel syndrome 11-03-2018 Chronic Other gastrointestinal disorders (7 sources) Drug-induced constipation 08-10-2023 Episodic Other gastrointestinal disorders (1 source) Constipation, unspecified; Translations: [Constipation, unspecified] Onset: 12-14-2023 Episodic Other liver diseases (7 sources) Large liver 02-03-2023 Episodic Other lower respiratory disease (11 sources) Dyspnea 01-02-2020 Episodic Other lower respiratory disease (7 sources) Persistent cough 10-20-2022 Episodic Other nutritional; endocrine; and metabolic disorders (3 sources) Weight loss 11-11-2023 Episodic Other skin disorders (7 sources) Inflammatory dermatosis 10-20-2022 Episodic Other upper respiratory disease (11 sources) Allergic rhinitis 08-20-2019 Chronic Peripheral and visceral atherosclerosis (13 sources) Peripheral vascular disease, unspecified; Translations: [Peripheral arterial disease] Chronic Pneumonia (except that caused by tuberculosis or sexually transmitted disease) (3 sources) Community acquired pneumonia; Translations: [Pneumonia, unspecified organism] 06-10-2022 Episodic Poisoning by other medications and drugs (6 sources) Poisoning by beta-adrenergic blocking drug; Translations: [Toxic effect of beta inessa] Episodic Pulmonary heart disease (11 sources) Pulmonary hypertension 11-03-2018 Chronic Residual codes; unclassified (11 sources) Chronic back pain 08-20-2019 Episodic Residual codes; unclassified (2 sources) Acute confusion; Translations: [Disorientation, unspecified] 06-10-2022 Episodic Residual codes; unclassified (1 source) Disorientation, unspecified; Translations: [Delirium due to conditions classified elsewhere] 06-13-2022 Episodic Respiratory failure; insufficiency; arrest (adult) (3 sources) Chronic respiratory acidosis; Translations: [Chronic respiratory failure with hypercapnia] 06-10-2022 Chronic Substance-related disorders (11 sources) Smoker 08-03-2016 Chronic Thyroid disorders (15 sources) Hypothyroidism; Translations: [Hypothyroidism, unspecified] Onset: 08-10-2023 08-20-2019 Chronic Unclassified (1 source) Right knee abrasion 06-01-2024 Urinary tract infections (1 source) Urinary tract infectious disease; Translations: [Urinary tract infection, site not specified] Onset: 05-15-2021 Episodic Past or Other Problems Problem Classification Problem Date Documented Date Episodic/Chronic Abdominal pain (13 sources) Abdominal pain; Translations: [Unspecified abdominal pain] Onset: 12-09-2023 02-03-2023 Episodic Genitourinary symptoms and ill-defined conditions (2 sources) Unspecified symptoms and signs involving the genitourinary system; Translations: [Unspecified symptoms and signs involving the genitourinary system] Onset: 03-02-2024 Episodic Other nutritional; endocrine; and metabolic disorders (2 sources) Abnormal weight loss; Translations: [Abnormal weight loss] Onset: 02-01-2024 Episodic Spondylosis; intervertebral disc disorders; other back problems (4 sources) Dorsalgia, unspecified; Translations: [Dorsalgia, unspecified] Onset: 08-10-2023 Episodic Results Test Name Value Interpretation Reference Range Facility LABORATORYOrdered By: Harley winchester on 03-02-2024 Appearance (U) Clear (03/02/24 4:18 PM) Normal Clear AO Auto Urine SS Bilirubin Ql (U) Negative (03/02/24 4:18 PM) Normal Negative AO Auto Urine SS Color (U) Yellow (03/02/24 4:18 PM) Normal AO Auto Urine SS Glucose Test strip (U) [Mass/Vol] Negative Normal Negative AO Auto Urine SS Hemoglobin Auto test strip (U) [Mass/Vol] Negative (03/02/24 4:18 PM) Normal Negative AO Auto Urine SS Ketones Ql (U) Negative Normal Negative AO Auto Urine SS UA Leuk Est Negative (03/02/24 4:18 PM) Normal Negative AO Auto Urine SS UA Nitrite Negative (03/02/24 4:18 PM) Normal Negative AO Auto Urine SS UA pH 6.5 (03/02/24 4:18 PM) Normal 5.0 - 8.0 AO Auto Urine SS UA Protein Negative Normal Negative AO Auto Urine SS UA Spec Grav 1.020 (03/02/24 4:18 PM) Normal 1.015-1.025 AO Auto Urine SS UA Specimen Type Clean Catch (03/02/24 4:18 PM) Normal AO Auto Urine SS UA Urobilinogen 0.2 E.U./dL Normal 0.2-1.0 AO Auto Urine SS No Panel Informationon 03-02 Culture Urine <10,000 cfu/ml. No Significant growth. Sensitivity not indicated. [facility] Work Phone: UAon 03-02-2024 Color (U) Yellow Normal [facility] Comment on above: Performed By: #### L IP, CBC, FT4, TSH, ANEU, ADIFF, CMP, GFR, LIPID, KAYLEE #### [address] [address] Glucose (U) [Mass/Vol] Negative Normal Negative [facility] Comment on above: Performed By: #### L IP, CBC, FT4, TSH, ANEU, ADIFF, CMP, GFR, LIPID, KAYLEE #### [address] [address] Ketones Ql (U) Negative Normal Negative [facility] Comment on above: Performed By: #### L IP, CBC, FT4, TSH, ANEU, ADIFF, CMP, GFR, LIPID, KAYLEE #### [address] [address] UA Appear Clear Normal Clear [facility] Comment on above: Performed By: #### L IP, CBC, FT4, TSH, ANEU, ADIFF, CMP, GFR, LIPID, KAYLEE #### [address] [address] UA Blood Negative Normal Negative [facility] Comment on above: Performed By: #### L IP, CBC, FT4, TSH, ANEU, ADIFF, CMP, GFR, LIPID, KAYLEE #### [place] [address] UA Leuk Est Negative Normal Negative [facility] Comment on above: Performed By: #### L IP, CBC, FT4, TSH, ANEU, ADIFF, CMP, GFR, LIPID, KAYLEE #### [place] [address] UA Nitrite Negative Normal Negative [facility] Comment on above: Performed By: #### L IP, CBC, FT4, TSH, ANEU, ADIFF, CMP, GFR, LIPID, KAYLEE #### [place] [address] UA pH 6.5 Normal 5.0 - 8.0 [facility] Comment on above: Performed By: #### L IP, CBC, FT4, TSH, ANEU, ADIFF, CMP, GFR, LIPID, KAYLEE #### [place] [address] UA Protein Negative Normal Negative [facility] Comment on above: Performed By: #### L IP, CBC, FT4, TSH, ANEU, ADIFF, CMP, GFR, LIPID, KAYLEE #### [place] [address] UA Spec Grav 1.020 Normal 1.015-1.025 [facility] Comment on above: Performed By: #### L IP, CBC, FT4, TSH, ANEU, ADIFF, CMP, GFR, LIPID, KAYLEE #### [place] [address] UA Specimen Type Clean Catch Normal [facility] Comment on above: Performed By: #### L IP, CBC, FT4, TSH, ANEU, ADIFF, CMP, GFR, LIPID, KAYLEE #### [place] [address] UA Urobilinogen 0.2 E.U./dL Normal 0.2-1.0 [facility] Comment on above: Performed By: #### L IP, CBC, FT4, TSH, ANEU, ADIFF, CMP, GFR, LIPID, KAYLEE #### [address] [address] Urobilinogen (U) [Mass/Vol] Negative Normal Negative [facility] Comment on above: Performed By: #### L IP, CBC, FT4, TSH, ANEU, ADIFF, CMP, GFR, LIPID, KAYLEE #### [address] [address] .Auto Diffon 02-01-2024 Basophil, Absolute 0.1 10 3/mcL Normal 0.0-0.2 [facility] Comment on above: Performed By: #### L IP, CBC, FT4, TSH, ANEU, ADIFF, CMP, GFR, LIPID, KAYLEE #### [address] [address] Basophils/100 WBC (Bld) 1.2 % Normal 0.0-2.5 [facility] Comment on above: Performed By: #### L IP, CBC, FT4, TSH, ANEU, ADIFF, CMP, GFR, LIPID, KAYLEE #### [address] [address] Eosinophil, Absolute 0.2 10 3/mcL Normal 0.0-0.7 [facility] Comment on above: Performed By: #### L IP, CBC, FT4, TSH, ANEU, ADIFF, CMP, GFR, LIPID, KAYLEE #### [address] [address] Eosinophils/100 WBC (Bld) 3.7 % Normal 0.0-7.0 [facility] Comment on above: Performed By: #### L IP, CBC, FT4, TSH, ANEU, ADIFF, CMP, GFR, LIPID, KAYLEE #### [address] [address] Lymphocyte, Absolute 1.1 10 3/mcL Normal 0.9-4.3 [facility] Comment on above: Performed By: #### L IP, CBC, FT4, TSH, ANEU, ADIFF, CMP, GFR, LIPID, KAYLEE #### [address] [address] Lymphocytes/100 WBC (Bld) 21.6 % Normal 20.0-40.0 [facility] Comment on above: Performed By: #### L IP, CBC, FT4, TSH, ANEU, ADIFF, CMP, GFR, LIPID, KAYLEE #### [address] [address] Monocyte, Absolute 0.4 10 3/mcL Normal 0.1-1.4 [facility] Comment on above: Performed By: #### L IP, CBC, FT4, TSH, ANEU, ADIFF, CMP, GFR, LIPID, KAYLEE #### [address] [address] Monocytes/100 WBC (Bld) 8.1 % Normal 2.0-13.0 [facility] Comment on above: Performed By: #### L IP, CBC, FT4, TSH, ANEU, ADIFF, CMP, GFR, LIPID, KAYLEE #### [address] [address] Neutrophils/100 WBC (Bld) 65.4 % Normal 50.0-75.0 [facility] Comment on above: Performed By: #### L IP, CBC, FT4, TSH, ANEU, ADIFF, CMP, GFR, LIPID, KAYLEE #### [address] [address] .GFRon 02-01-2024 GFR 64 ml/min/1.73sqm Normal [facility] Comment on above: Result Comment: GFR Population mean for , Non- Americans Ages 20-29 = 116 mL/min/1.73 sq.m. Ages 30-39 = 107 mL/min/1.73 sq.m. Ages 40-49 = 99 mL/min/1.73 sq.m. Ages 50-59 = 93 mL/min/1.73 sq.m. Ages 60-69 = 85 mL/min/1.73 sq.m. Ages 70+ = 75 mL/min/1.73 sq.m. Chronic Kidney Disease: Less than 60 mL/min/1.73 square meters End Stage Renal Disease: Less than 15 mL/min/1.73 square meters Performed By: #### L IP, CBC, FT4, TSH, ANEU, ADIFF, CMP, GFR, LIPID, KAYLEE #### [address] [address] GFR Non- 52 ml/min/1.73sqm Normal [facility] Comment on above: Result Comment: GFR Population mean for , Non- Americans Ages 20-29 = 116 mL/min/1.73 sq.m. Ages 30-39 = 107 mL/min/1.73 sq.m. Ages 40-49 = 99 mL/min/1.73 sq.m. Ages 50-59 = 93 mL/min/1.73 sq.m. Ages 60-69 = 85 mL/min/1.73 sq.m. Ages 70+ = 75 mL/min/1.73 sq.m. Chronic Kidney Disease: Less than 60 mL/min/1.73 square meters End Stage Renal Disease: Less than 15 mL/min/1.73 square meters Performed By: #### L IP, CBC, FT4, TSH, ANEU, ADIFF, CMP, GFR, LIPID, KAYLEE #### [address] [address] .NEUABSon 02-01-2024 Neutrophil, Absolute 3.4 10 3/mcL Normal 2.3-8.1 [facility] Comment on above: Performed By: #### L IP, CBC, FT4, TSH, ANEU, ADIFF, CMP, GFR, LIPID, KAYLEE #### [address] [address] AMYon 02-01-2024 Amylase [Catalytic activity/Vol] 49 U/L Normal 25-115 [facility] Comment on above: Performed By: #### L IP, CBC, FT4, TSH, ANEU, ADIFF, CMP, GFR, LIPID, KAYLEE #### [address] [address] CBCon 02-01-2024 Erythrocyte distribution width (RBC) [Ratio] 14.2 % Normal 11.5-15.5 [facility] Comment on above: Performed By: #### L IP, CBC, FT4, TSH, ANEU, ADIFF, CMP, GFR, LIPID, KAYLEE #### [place] [address] Hematocrit (Bld) [Volume fraction] 40.6 % Normal 34.0-46.0 [facility] Comment on above: Performed By: #### L IP, CBC, FT4, TSH, ANEU, ADIFF, CMP, GFR, LIPID, KAYLEE #### [place] [address] Hgb 13.1 G/dL Normal 12.0-16.0 [facility] Comment on above: Performed By: #### L IP, CBC, FT4, TSH, ANEU, ADIFF, CMP, GFR, LIPID, KAYLEE #### [place] [address] MCH (RBC) [Entitic mass] 29.8 pg Normal 27.0-33.0 [facility] Comment on above: Performed By: #### L IP, CBC, FT4, TSH, ANEU, ADIFF, CMP, GFR, LIPID, KAYLEE #### [place] [address] MCHC 32.4 G/dL Normal 32.0-36.0 [facility] Comment on above: Performed By: #### L IP, CBC, FT4, TSH, ANEU, ADIFF, CMP, GFR, LIPID, KAYLEE #### [place] [address] MCV (RBC) [Entitic vol] 91.9 fL Normal 80.0-99.0 [facility] Comment on above: Performed By: #### L IP, CBC, FT4, TSH, ANEU, ADIFF, CMP, GFR, LIPID, KAYLEE #### [place] [address] Platelet 325 10 3/mcL Normal 150-450 [facility] Comment on above: Performed By: #### L IP, CBC, FT4, TSH, ANEU, ADIFF, CMP, GFR, LIPID, KAYLEE #### [address] [address] Platelet mean volume (Bld) [Entitic vol] 7.9 fL Normal 6.6-10.5 [facility] Comment on above: Performed By: #### L IP, CBC, FT4, TSH, ANEU, ADIFF, CMP, GFR, LIPID, KAYLEE #### [address] [address] RBC 4.41 10 6/mcL Normal 4.10-5.30 [facility] Comment on above: Performed By: #### L IP, CBC, FT4, TSH, ANEU, ADIFF, CMP, GFR, LIPID, KAYLEE #### [address] [address] WBC 5.2 10 3/mcL Normal 4.5-10.8 [facility] Comment on above: Performed By: #### L IP, CBC, FT4, TSH, ANEU, ADIFF, CMP, GFR, LIPID, KAYLEE #### [address] [address] CMPon 02-01-2024 Albumin Level 3.4 G/dL Normal 3.4-4.8 [facility] Comment on above: Performed By: #### L IP, CBC, FT4, TSH, ANEU, ADIFF, CMP, GFR, LIPID, KAYLEE #### [address] [address] Albumin/Globulin [Mass ratio] 1.1 {ratio} Normal 1.1-2.5 [facility] Comment on above: Performed By: #### L IP, CBC, FT4, TSH, ANEU, ADIFF, CMP, GFR, LIPID, KAYLEE #### [address] [address] ALP [Catalytic activity/Vol] 117 U/L Normal 40-135 [facility] Comment on above: Performed By: #### L IP, CBC, FT4, TSH, ANEU, ADIFF, CMP, GFR, LIPID, KAYLEE #### [address] [address] ALT [Catalytic activity/Vol] 22 U/L Normal 14-59 [facility] Comment on above: Performed By: #### L IP, CBC, FT4, TSH, ANEU, ADIFF, CMP, GFR, LIPID, KAYLEE #### [address] [address] AST [Catalytic activity/Vol] 19 U/L Normal 10-40 [facility] Comment on above: Performed By: #### L IP, CBC, FT4, TSH, ANEU, ADIFF, CMP, GFR, LIPID, KAYLEE #### [address] [address] Bili Total 0.5 mg/dL Normal 0.2-1.0 [facility] Comment on above: Result Comment: Use of this assay is not recommended for patients undergoing treatment with eltrombopag due to the potential for falsely elevated results. Performed By: #### L IP, CBC, FT4, TSH, ANEU, ADIFF, CMP, GFR, LIPID, KAYLEE #### [address] [address] BUN/Creatinine Ratio 21 ratio Normal 7-27 [facility] Comment on above: Performed By: #### L IP, CBC, FT4, TSH, ANEU, ADIFF, CMP, GFR, LIPID, KAYLEE #### [address] [address] Calcium [Mass/Vol] 9.6 mg/dL Normal 8.4-10.2 [facility] Comment on above: Performed By: #### L IP, CBC, FT4, TSH, ANEU, ADIFF, CMP, GFR, LIPID, KAYLEE #### [address] [address] Chloride [Moles/Vol] 98 mmol/L Normal 98-107 [facility] Comment on above: Performed By: #### L IP, CBC, FT4, TSH, ANEU, ADIFF, CMP, GFR, LIPID, KAYLEE #### [address] [address] CO2 [Moles/Vol] 33 mmol/L High 23-31 [facility] Comment on above: Performed By: #### L IP, CBC, FT4, TSH, ANEU, ADIFF, CMP, GFR, LIPID, KAYLEE #### [address] [address] Creatinine [Mass/Vol] 1.01 mg/dL Normal 0.55-1.02 [facility] Comment on above: Result Comment: Test ing performed on Siemens Dimension EXL analyzer using a modified kinetic Luis Alberto technique. Performed By: #### L IP, CBC, FT4, TSH, ANEU, ADIFF, CMP, GFR, LIPID, KAYLEE #### [address] [address] Electrolyte Balance 4.0 mEq/L Normal 4.0-15.0 [facility] Comment on above: Performed By: #### L IP, CBC, FT4, TSH, ANEU, ADIFF, CMP, GFR, LIPID, KAYLEE #### [place] [address] Globulin 3.0 G/dL Normal [facility] Comment on above: Performed By: #### L IP, CBC, FT4, TSH, ANEU, ADIFF, CMP, GFR, LIPID, KAYLEE #### [address] [address] Glucose [Mass/Vol] 90 mg/dL Normal 83-110 [facility] Comment on above: Performed By: #### L IP, CBC, FT4, TSH, ANEU, ADIFF, CMP, GFR, LIPID, KAYLEE #### [address] [address] Potassium [Moles/Vol] 4.3 mmol/L Normal 3.5-5.1 [facility] Comment on above: Performed By: #### L IP, CBC, FT4, TSH, ANEU, ADIFF, CMP, GFR, LIPID, KAYLEE #### [address] [address] Sodium [Moles/Vol] 135 mmol/L Low 136-145 [facility] Comment on above: Performed By: #### L IP, CBC, FT4, TSH, ANEU, ADIFF, CMP, GFR, LIPID, KAYLEE #### [place] [address] [place], [place] [address] Total Protein 6.4 G/dL Normal 6.4-8.2 [facility] Comment on above: Performed By: #### L IP, CBC, FT4, TSH, ANEU, ADIFF, CMP, GFR, LIPID, KAYLEE #### [place] [address] [place], [place] [address] Urea nitrogen [Mass/Vol] 21 mg/dL High 7-18 [facility] Comment on above: Performed By: #### L IP, CBC, FT4, TSH, ANEU, ADIFF, CMP, GFR, LIPID, KAYLEE #### [place] [address] [place], [place] [address] FT4on 02-01-2024 Free T4 [Mass/Vol] 1.25 ng/dL Normal 0.76-1.46 [facility] Comment on above: Performed By: #### L IP, CBC, FT4, TSH, ANEU, ADIFF, CMP, GFR, LIPID, KAYLEE #### [address] [address] LABORATORYOrdered By: SYSTEM SYSTEM on 02-01-2024 Albumin BCP dye [Mass/Vol] 3.4 G/dL Normal 3.4 - 4.8 G/dL AO ADM SS Albumin/Globulin [Mass ratio] 1.1 {ratio} Normal 1.1 - 2.5 ratio AO ADM SS ALP [Catalytic activity/Vol] 117 U/L Normal 40 - 135 U/L AO ADM SS ALT With P-5'-P [Catalytic activity/Vol] 22 U/L Normal 14 - 59 U/L AO ADM SS Amylase [Catalytic activity/Vol] 49 U/L Normal 25 - 115 U/L AO ADM SS AST With P-5'-P [Catalytic activity/Vol] 19 U/L Normal 10 - 40 U/L AO ADM SS Basophils (Bld) [#/Vol] 0.1 103/mcL Normal 0.0 - 0.2 10^3/mcL AO Workflow SS Basophils/100 WBC (Bld) 1.2 % Normal 0.0 - 2.5 % AO Workflow SS Bilirubin [Mass/Vol] 0.5 mg/dL Normal 0.2 - 1 .0 mg/dL AO ADM SS Comment on above: Interpretive Data: U se of this assay is not recommended for patients undergoing treatment with eltrombopag due to the potential for falsely elevated results. Calcium [Mass/Vol] 9.6 mg/dL Normal 8.4 - 10. 2 mg/dL AO ADM SS Chloride [Moles/Vol] 98 mmol/L Normal 98 - 10 7 mmol/L AO ADM SS CO2 [Moles/Vol] 33 mmol/L High 23 - 31 mmol/L AO ADM SS Creatinine [Mass/Vol] 1.01 mg/dL Normal 0.55 - 1.02 mg/dL AO ADM SS Comment on above: Interpretive Data: T esting performed on Siemens Dimension EXL analyzer using a modified kinetic Luis Alberto technique. Electrolyte Balance 4.0 mEq/L Normal 4.0 - 15 .0 mEq/L AO ADM SS Eosinophil, Absolute 0.2 103/mcL Normal 0.0 - 0 .7 10^3/mcL AO Workflow SS Eosinophils/100 WBC (Bld) 3.7 % Normal 0.0 - 7.0 % AO Workflow SS Erythrocyte distribution width (RBC) [Ratio] 14.2 % Normal 11.5 - 15.5 % AO Workflow SS Free T4 [Mass/Vol] 1.25 ng/dL Normal 0.76 - 1. 46 ng/dL AO ADM SS GFR/1.73 sq M.predicted among blacks MDRD (S/P/Bld) [Vol rate/Area] 64 ml/min/1.73sqm Invalid Interpretation Code AO Chemistry S Comment on above: Interpretive Data: GFR Population mean for , Non- Americans Ages 20-29 = 116 mL/min/1.73 sq.m. Ages 30-39 = 107 mL/min/1.73 sq.m. Ages 40-49 = 99 mL/min/1.73 sq.m. Ages 50-59 = 93 mL/min/1.73 sq.m. Ages 60-69 = 85 mL/min/1.73 sq.m. Ages 70+ = 75 mL/min/1.73 sq.m. Chronic Kidney Disease: Less than 60 mL/min/1.73 square meters End Stage Renal Disease: Less than 15 mL/min/1.73 square meters GFR/1.73 sq M.predicted among non-blacks MDRD (S/P/Bld) [Vol rate/Area] 52 ml/min/1.73sqm Invalid Interpretation Code AO Chemistry S Comment on above: Interpretive Data: GFR Population mean for , Non- Americans Ages 20-29 = 116 mL/min/1.73 sq.m. Ages 30-39 = 107 mL/min/1.73 sq.m. Ages 40-49 = 99 mL/min/1.73 sq.m. Ages 50-59 = 93 mL/min/1.73 sq.m. Ages 60-69 = 85 mL/min/1.73 sq.m. Ages 70+ = 75 mL/min/1.73 sq.m. Chronic Kidney Disease: Less than 60 mL/min/1.73 square meters End Stage Renal Disease: Less than 15 mL/min/1.73 square meters Globulin 3.0 G/dL Invalid Interpretation Code AO ADM SS Glucose [Mass/Vol] 90 mg/dL Normal 83 - 110 mg/dL AO ADM SS Hematocrit (Bld) [Volume fraction] 40.6 % Normal 34.0 - 46.0 % AO Workflow SS Hemoglobin (Bld) [Mass/Vol] 13.1 G/dL Normal 12.0 - 16.0 G/dL AO Workflow SS Lipase [Catalytic activity/Vol] 26 U/L Normal 16 - 77 U/L AO ADM SS Lymphocytes (Bld) [#/Vol] 1.1 103/mcL Normal 0.9 - 4.3 10^3/mcL AO Workflow SS Lymphocytes/100 WBC (Bld) 21.6 % Normal 20.0 - 40.0 % AO Workflow SS MCH (RBC) [Entitic mass] 29.8 pg Normal 27.0 - 33.0 pg AO Workflow SS MCHC 32.4 G/dL Normal 32.0 - 36.0 G/dL AO Workflow SS MCV (RBC) [Entitic vol] 91.9 fL Normal 80.0 - 99.0 fL AO Workflow SS Monocytes (Bld) [#/Vol] 0.4 103/mcL Normal 0.1 - 1.4 10^3/mcL AO Workflow SS Monocytes/100 WBC (Bld) 8.1 % Normal 2.0 - 13.0 % AO Workflow SS Neutrophils (Bld) [#/Vol] 3.4 103/mcL Normal 2.3 - 8.1 10^3/mcL AO Workflow SS Neutrophils/100 WBC (Bld) 65.4 % Normal 50.0 - 75.0 % AO Workflow SS Platelet mean volume (Bld) [Entitic vol] 7.9 fL Normal 6.6 - 10.5 fL AO Workflow SS Platelets (Bld) [#/Vol] 325 103/mcL Normal 150 - 450 10^3/mcL AO Workflow SS Potassium [Moles/Vol] 4.3 mmol/L Normal 3.5 - 5.1 mmol/L AO ADM SS Protein [Mass/Vol] 6.4 G/dL Normal 6.4 - 8.2 G/dL AO ADM SS RBC (Bld) [#/Vol] 4.41 106/mcL Normal 4.10 - 5.3 0 10^6/mcL AO Workflow SS Sodium [Moles/Vol] 135 mmol/L Low 136 - 145 mmol/L AO ADM SS TSH Qn 3.17 m[IU]/L Normal 0.36 - 3.74 mcIU/mL AO ADM SS Urea nitrogen [Mass/Vol] 21 mg/dL High 7 - 18 mg/dL AO ADM SS Urea nitrogen/Creatinine [Mass ratio] 21 ratio Normal 7 - 27 ratio AO ADM SS WBC (Bld) [#/Vol] 5.2 103/mcL Normal 4.5 - 10.8 10^3/mcL AO Workflow SS LABORATORYOrdered By: Abisai Sousa on 02-01-2024 Cholesterol [Mass/Vol] 197 mg/dL Normal 0 - 200 mg/dL AO ADM SS Comment on above: Interpretive Data: C holesterol Reference Interval: Less than 200 Desirable 200-239 Borderline high risk 240 and above High risk Cholesterol in HDL [Mass/Vol] 67 mg/dL High 40 - 60 mg/dL AO ADM SS Cholesterol in LDL [Mass/Vol] 118 mg/dL Normal 0 - 130 mg/dL AO ADM SS Triglyceride [Mass/Vol] 59 mg/dL Normal 0 - 150 mg/dL AO ADM SS Comment on above: Interpretive Data: T riglyceride Reference Interval: Less than 150 Normal 150-199 Borderline high risk 200-499 High risk 500 or higher Very high risk LIPon 02-01-2024 Lipase Level 26 U/L Normal 16-77 [facility] Comment on above: Performed By: #### L IP, CBC, FT4, TSH, ANEU, ADIFF, CMP, GFR, LIPID, KAYLEE #### [address] [address] LIPIDon 02-01-2024 Cholesterol [Mass/Vol] 197 mg/dL Normal 0-200 [facility] Comment on above: Result Comment: Chol esterol Reference Interval: Less than 200 Desirable 200-239 Borderline high risk 240 and above High risk Performed By: #### L IP, CBC, FT4, TSH, ANEU, ADIFF, CMP, GFR, LIPID, KAYLEE #### [address] [address] Cholesterol in HDL [Mass/Vol] 67 mg/dL High 40-60 [facility] Comment on above: Performed By: #### L IP, CBC, FT4, TSH, ANEU, ADIFF, CMP, GFR, LIPID, KAYLEE #### [place] [address] Cholesterol in LDL [Mass/Vol] 118 mg/dL Normal 0-130 [facility] Comment on above: Performed By: #### L IP, CBC, FT4, TSH, ANEU, ADIFF, CMP, GFR, LIPID, KAYLEE #### [place] [id number] Triglyceride [Mass/Vol] 59 mg/dL Normal 0-150 [facility] Comment on above: Result Comment: Trig lyceride Reference Interval: Less than 150 Normal 150-199 Borderline high risk 200-499 High risk 500 or higher Very high risk Performed By: #### L IP, CBC, FT4, TSH, ANEU, ADIFF, CMP, GFR, LIPID, KAYLEE #### [address] [address] TSHon 02-01-2024 TSH Qn 3.17 m[IU]/L Normal 0.36-3.74 [facility] Comment on above: Performed By: #### L IP, CBC, FT4, TSH, ANEU, ADIFF, CMP, GFR, LIPID, KAYLEE #### [address] [address] Abdomen Single View (Portabl e)on 12-06-2023 Abdomen Single View (Portable) [facility] [address] [place] [address] Abdomen Single View (Portable) MR#: [id number] Acct: [id number] Name: DEBRA COLE Rep #: [id number] : 1940 F 83 From: Corin Adams MD PCP: Dr. Jaime Boateng MD Status: REG ER Study: Abdomen Single View (Portable) Date of Exam: 0 12/06/23 Exam# [id number] Ordering Dr: Shailesh Ramírez DO [id number] EXAM: XR ABDOMEN, 1 VIEW CLINICAL INDICATION: CONSTIPATION TECHNIQUE: Single AP supine view. COMPARISON: No relevant prior studies available. FINDINGS: LOWER THORAX: Hyperlucency and hyperexpansion at the lung bases again noted. GASTROINTESTINAL TRACT: There is mild gastric air bubble and mild scattered bowel gas in the central-left lower abdomen and pelvis. Non-obstructive. No bowel or stomach distention. ORGANS: Unremarkable as visualized. No organomegaly. No abnormal calcifications. BONES/JOINTS: Superiorly dislocated left femoral head prosthesis and proximal mentasta femur, similar to old exams. Mild lumbar spondylosis. SOFT TISSUES: No acute pathology. VASCULATURE: Heavily calcified aortoiliac vessels, unremarkable caliber where seen. RAD/Abdomen Single View (Portable) IMPRESSION: 1. Nonspecific bowel gas pattern. 2. Hyperinflated and hyperlucent lung bases. See the chest radiograph. Thank you. Electronically Signed: Corin Adams MD at 19:29 EDT , CC: Dr. Jamie Boateng MD; Dr. Shailesh Ramírez DO Interior Design Project Manager: Signed Normal [facility] Abdomen/Pelvis WITH Contrast on 12-06-2023 Abdomen/Pelvis WITH Contrast [facility] [address] [place] [address] Abdomen/Pelvis WITH Contrast MR#: [id number] Acct: [id number] Name: DEBRA COLE Rep #: [id number] : 1940 F 83 From: Corin Adams MD PCP: Dr. Jamie Boateng MD Status: [facility] Study: Abdomen/Pelvis WITH Contrast Date of Exam: Exam# [id number] Ordering Dr: Shailesh Ramírez DO [id number] EXAM: CT ABDOMEN AND PELVIS WITH INTRAVENOUS CONTRAST CLINICAL INDICATION: Constipation, rule out bowel obstruction -- IV PO Contrast TECHNIQUE: Helically acquired images were obtained of the abdomen and pelvis with intravenous contrast. This CT exam was performed using one or more of the following dose reduction techniques: automated exposure control, adjustment of the mA and/or kV according to patient size, and/or use of iterative reconstruction technique. CONTRAST: Oral and amp; IV Gastrografin and amp; 75mL Isovue-370 RADIATION DOSE: CTDIvol = 15.26 mGy, DLP = 314.99 mGy-cm. COMPARISON: CTA chest June 10, 2022. FINDINGS: LOWER THORAX: Heavily calcified aortoiliac vessels and intra-abdominal arterial branches high-grade stenosis of the proximal 2.7 cm at the left renal artery and fairly high-grade stenosis of the proximal right renal artery. Mild dilatation of the distal descending thoracic aorta to 3.4 cm x 3 cm just proximal to the aortic hiatus. There is advanced emphysematous change in the lung bases, interstitial thickening and mild juxtapleural consolidation in the posterior-medial left lung base. Slight left effusion and mild posterior right pleural thickening or slight effusion. The heart is not fully included. Presumed stent in right coronary artery. ABDOMEN: LIVER: Elongated liver, the right lobe is 17.3 cm. Pancreatic duct estimated to be 4.5 mm proximal. GALLBLADDER AND BILE DUCTS: Partially contracted gallbladder. No calcified gallstones. No gallbladder distention or wall edema. No intra- or extrahepatic biliary ductal dilation. PANCREAS: See above. SPLEEN: Unremarkable. Normal size without focal cystic or solid mass. ADRENALS: Unremarkable. No nodules. KIDNEYS AND URETERS: Atrophic left kidney, 6.2 cm in length, compared to 9.3 cm in length of the right kidney. No hydronephrosis. STOMACH AND BOWEL: Oral contrast reached most distal small bowel loops, it does not opacify the terminal ileum or right colon. Crowded bowel. There is mild wall thickening and enhancement of the splenic flexure, descending colon, sigmoid, they contain minimal gas and fluid. Mildly prominent small bowel content. No stomach or bowel distention. PELVIS: APPENDIX: Low lying cecum, appendix is not clearly seen. BLADDER: Moderately distended urinary bladder, at least 10 cm craniocaudal. REPRODUCTIVE: Atrophic uterus with a few coarse calcifications. ABDOMEN and PELVIS: INTRAPERITONEAL SPACE: Unremarkable. No ascites or other fluid collection. No free air. BONES/JOINTS: Chronic changes of the left hip with hypertrophic changes, superior dislocation of the femoral prosthesis components. Slight demineralization of the spine, mild disc bulges or protrusions minimally effacing the ventral thecal sac, most pronounced at L1-2. No suspicious lytic or blastic abnormality. SOFT TISSUES: Unremarkable. No discrete abdominal or pelvic wall hernia. VASCULATURE: High-grade stenosis of proximal SMA with a large amount of calcified plaque, involving at least the 1.3 cm proximal vessel. LYMPH NODES: Unremarkable. No enlarged lymph nodes. CT/Abdomen/Pelvis WITH Contrast IMPRESSION: 1. Suspicion of early or mild colitis mild fluid and gas in most of the colon with at least mild wall thickening and enhancement. No evidence of significant constipation. Similar appearance of intraluminal fluid with mild mucosal enhancement involving the rectum. The colon is difficult to follow. 2. Nonvisualized appendix. 3. No evidence of significant small bowel obstruction, oral contrast reached most of the distal small bowel loops. 4. Mild focal distal thoracic aorta dilatation. 5. Small left effusion and mildly thick band of opacity in the left lung base superimposed on bullous-fibrotic changes. 6. High-grade segmental stenosis of proximal SMA. High-grade stenosis of left greater than right renal arteries. At least moderate stenosis of origin of the celiac axis. 7. Atrophic left kidney. 8. Moderately distended urinary bladder. Electronically Signed: Corin Adams MD at 22:12 EDT , CC: Dr. Jamie Boateng MD; Dr. Shailesh Desiree, DO Interior Design Project Manager: Signed Normal [facility] Basic Metabolic Profile (BMP )on 12-06-2023 BUN/CRE 22.0 RATIO High 10-20 [facility] Comment on above: Performed By: #### L 503.6005, L500.2500, L500.4050, L501.2450 #### [facility] [address] [place], [address] CA,Total 9.4 mg/dL Normal 8.5-10.1 [facility] Comment on above: Performed By: #### L 503.6005, L500.2500, L500.4050, L501.2450 #### [facility] [address] [place], [address] Chloride [Moles/Vol] 95 mmol/L Low 98-107 [facility] Comment on above: Performed By: #### L 503.6005, L500.2500, L500.4050, L501.2450 #### [facility] [address] [place], [address] CO2 [Moles/Vol] 30.0 mmol/L Normal 21.0-32.0 [facility] Comment on above: Performed By: #### L 503.6005, L500.2500, L500.4050, L501.2450 #### [facility] [address] [place], [address] Creatinine [Mass/Vol] 1.09 mg/dL High 0.55-1.02 [facility] Comment on above: Result Comment: The validity of the calculated GFR GFRAA in patients over 70 years has not been determined. Clinical correlation is essential. Performed By: #### L 503.6005, L500.2500, L500.4050, L501.2450 #### [facility] [address] [place], [address] EST GFR - AA 62 mL/min Normal >60 [facility] Comment on above: Result Comment: Afri can [place] GFR Calc Performed By: #### L 503.6005, L500.2500, L500.4050, L501.2450 #### [facility] [address] [place], [address] GAP 6 Normal 5-15 [facility] Comment on above: Performed By: #### L 503.6005, L500.2500, L500.4050, L501.2450 #### [facility] [address] [place], [address] GFR/1.73 sq M.predicted among non-blacks MDRD (S/P/Bld) [Vol rate/Area] 51 mL/min/{1.73_m2} Low >60 [facility] Comment on above: Result Comment: Non- GFR Calc Performed By: #### L 503.6005, L500.2500, L500.4050, L501.2450 #### [facility] [address] [place], [address] Glucose [Mass/Vol] 88 mg/dL Normal 74-106 [facility] Comment on above: Performed By: #### L 503.6005, L500.2500, L500.4050, L501.2450 #### [facility] [address] [place], [address] Potassium [Moles/Vol] 4.1 mmol/L Normal 3.5-5.1 [facility] Comment on above: Performed By: #### L 503.6005, L500.2500, L500.4050, L501.2450 #### [facility] [address] [place], [address] Sodium [Moles/Vol] 131 mmol/L Low 136-145 [facility] Comment on above: Performed By: #### L 503.6005, L500.2500, L500.4050, L501.2450 #### [facility] [address] [place], [address] Urea nitrogen [Mass/Vol] 24 mg/dL High 7- [facility] Comment on above: Performed By: #### L 503.6005, L500.2500, L500.4050, L501.2450 #### [facility] [address] [place], [address] Chest 1 View (Portable)on Chest 1 View (Portable) [facility] [address] [place] [address] Chest 1 View (Portable) MR#: [id number] Acct: [id number] Name: DEBRA COLE Rep #: [id number] : 1940 F 83 From: Corin Adams MD PCP: Dr. Jamie Boateng MD Status: REG ER Study: Chest 1 View (Portable) Date of Exam: 12/06/23 Exam# [id number] Ordering Dr: Shailesh Ramírez DO [id number] EXAM: XR CHEST, 1 VIEW CLINICAL INDICATION: PAIN TECHNIQUE: Frontal view of the chest. COMPARISON: June 10, 2022, June 12, 2022, CTA chest June 10, 2022 showing advanced senescent changes airway thickening coarse increased interstitial and patchy opacities in the lung bases, pleural effusions FINDINGS: LUNGS AND PLEURAL SPACES: The lungs are hyperinflated with increased lucency in the mid-lower lung bear compared to prior exam, possibly worsening emphysematous change. No pneumothorax. No effusion. HEART: Unremarkable. Cardiac silhouette not enlarged. MEDIASTINUM: Central airways and mediastinal contour are unremarkable. BONES/JOINTS: Unremarkable. No acute fracture. SOFT TISSUES: Heavily peripherally calcified breast implants are again noted. VASCULATURE: Heavily calcified aorta and aortic contour appears similar. RAD/Chest 1 View (Portable) IMPRESSION: 1. Advanced COPD. 2. Increased inflation and increased lucency in the lung bases may be due to increased hyperinflation or PE. 3. Cannot exclude anterior right pneumothorax in the appropriate clinical setting, the patient is supine. 4. Consider additional evaluation by PA and lateral views of the chest or CT-CTA if is thought to be indicated. Electronically Signed: Corin Adams MD at 19:26 EDT , CC: Dr. Jmaie Boateng MD; Dr. Shailesh Ramírez DO Interior Design Project Manager: Signed Normal [facility] Comprehensive Metabolic Prof ilon 12-06-2023 Albumin [Mass/Vol] 3.1 g/dL Low 3.2-5.0 [facility] Comment on above: Performed By: #### L 503.6005, L500.2500, L500.4050, L501.2450 #### [facility] [address] [place], [address] Albumin/Globulin [Mass ratio] 0.8 {ratio} Low 0.9-2.4 [facility] Comment on above: Performed By: #### L 503.6005, L500.2500, L500.4050, L501.2450 #### [facility] [address] [place], [address] ALK P 114 U/L Normal 45-117 [facility] Comment on above: Performed By: #### L 503.6005, L500.2500, L500.4050, L501.2450 #### [facility] [address] [place], [address] ALT [Catalytic activity/Vol] 16 U/L Normal 13-56 [facility] Comment on above: Performed By: #### L 503.6005, L500.2500, L500.4050, L501.2450 #### [facility] [address] [place], [address] AST [Catalytic activity/Vol] 21 U/L Normal 15-37 [facility] Comment on above: Performed By: #### L 503.6005, L500.2500, L500.4050, L501.2450 #### [facility] [address] [place], [address] Bilirubin [Mass/Vol] 0.90 mg/dL Normal 0.20-1.00 [facility] Comment on above: Result Comment: For patients on eltrombopag therapy, use of Dimension [place] TBIL is not recommended. Performed By: #### L 503.6005, L500.2500, L500.4050, L501.2450 #### [facility] [address] [place], [address] Globulin (S) [Mass/Vol] 3.7 g/dL Normal 2.2-4.2 [facility] Comment on above: Performed By: #### L 503.6005, L500.2500, L500.4050, L501.2450 #### [facility] [address] [place], [address] T PROT 6.8 g/dL Normal 6.4-8.2 [facility] Comment on above: Performed By: #### L 503.6005, L500.2500, L500.4050, L501.2450 #### [facility] [address] [place], [address] Emergency Department Summary on 12-06-2023 Emergency Department Summary [facility] Medical Records Department [address] [place] [address] Emergency Department Summary 12/06/23 MR#: [id number] Acct: [id number] Name: DEBRA COLE Rep #: [id number] : 1940 83 From: Shailesh Ramírez DO PCP: Dr. 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) Chronic respiratory acidosis Community acquired pneumonia Acute confusion Former smoker Gluten intolerance Smoker COPD (chronic obstructive pulmonary disease) Hypertension Stroke/cerebrovascular accident Home Medications ???Medication ???Instructions ???Recorded ???Last Taken ???Type levothyroxine 75 mcg tablet 75 mcg PO DAILY THYROID 06/05/21 06/09/22 History lisinopril 20 mg tablet 20 mg PO DAILY BLOOD PRESSURE 06/05/21 06/09/22 History metoprolol succinate 50 mg 50 mg PO QPM BLOOD PRESSURE 06/05/21 06/09/22 06:00 History tablet,extended release 24 hr montelukast 10 mg tablet 10 mg PO QHS BREATHING 06/05/21 06/09/22 History (Singulair) clopidogrel 75 mg tablet 75 mg PO DAILY BLOOD THINNER 09/07/21 06/09/22 History hydrocodone-acetaminophe n 5-325mg 1 tab PO Q6H PRN Pain 06/10/22 06/08/22 History 5mg-325mg lorazepam 2 mg tablet 2 mg PO TID ANXIETY 06/10/22 06/09/22 History oxybutynin chloride 5 mg 5 mg PO DAILY OVERACTIVE BLADDER 06/10/22 06/09/22 History tablet,extended release 24 hr amoxicillin 875 mg-potassium 875 mg PO BID #10 tabs 06/13/22 Unknown Rx clavulanate 125 mg tablet Allergy/AdvReac Type Severity Reaction Status Date / Time meperidine (From Demerol) Allergy Rash Verified 12/06/23 17:32 Family History Mother Hypertension Heart disease Father Hypertension Cancer Hx prostate CA. Other CVA (cerebral vascular accident) Surgical History History of total left hip replacement Hx of breast implants, bilateral Social History household members: other details: Son's girlfriend Smoking Status: Current every day smoker tobacco type: cigarettes and e-cigarettes how long ago did patient quit smoking: Reports recently quit cigarette tobacco, prior heavy since youth. 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 substance use type: does not use EXAM Physical Exam Const Vital Signs: 12/06/23 17:33 12/06/23 18:47 12/06/23 19:37 Temperature 97.2 F L Temperature Source Temporal Pulse Rate 70 75 Respiratory Rate 18 16 Respiratory Effort Normal Respiratory Depth Normal Respiratory Pattern Normal Blood Pressure 178/108 H 165/92 H Blood Pressure Mean 131 116 Pulse Ox 94 95 Oxygen Delivery Method Room Air Room Air Room Air 12/06/23 21:00 Temperature Temperature Source Pulse Rate 63 Respiratory Rate 15 Respiratory Effort Respiratory Depth Respiratory Pattern Blood Pressure 173/97 H Blood Pressure Mean 122 Pulse Ox 98 Oxygen Delivery Method Room Air [facility] Narrative Medical decision making narrative: HISTORY OF PRESENT ILLNESS: 83-year-old female presents with concern for constipation. Notes she took a suppository at home and that she may have sort of self. She notes abdominal cramping. Patient further states she had abdominal cramping and constipation earlier today. Notes she placed a suppository and felt something blocking things. She is concerned she may have a bowel obstruction. Denies vomiting or fever. Last bowel movement was just prior to my evaluation. No melena hematochezia reported. No chest pain or shortness of breath reported. REVIEW OF SYSTEMS: Pertinent positives: Constipation, abdominal cramping Pertinent negatives: Vomiting, fever, urinary complaints open (such as dysuria urgency frequency or hematuria) PHYSICAL EXAM: Nursing triage notes reviewed, Vital signs reviewed Constitutional: please see [facility] HENT: MMM Eyes: Pupils equal round and reactive to light, Extraocular muscles intact Neck: No stridor, no JVD, full neck ROM Lungs: Clear to auscultation, No wheezing or rales. No increased work of breathing, no conversational dyspnea, no accessory muscle use, no nasal flaring. No respiratory distress noted Heart: Regular rate and rhythm, No murmurs, No rubs and No gallops, 2+ distal pulses (radial, femoral, posterior tibial) in all extremities Abdomen: Soft, there is no tenderness, rigidity, rebound or guarding, no obvious peritoneal signs, no palpable pulsatile abdominal masses, no auscultated abdominal bruit : No (more content not included)... Normal [facility] HIP, UNI W/ Pelvis 2-3 Views on 12-06-2023 HIP, UNI W/ Pelvis 2-3 Views [facility] Services [address] [place] [address] HIP, UNI W/ Pelvis 2-3 Views MR#: [id number] Acct: [id number] Name: DEBRA COLE Rep #: [id number] : 1940 F 83 From: Corin Adams MD PCP: Dr. Jamie Boateng MD Status: [facility] ER Study: HIP, UNI W/ Pelvis 2-3 Views Date of Exam: Exam# [id number] Ordering Dr: Shailesh Ramírez DO [id number] EXAM: XR LEFT HIP WITH PELVIS WHEN PERFORMED, 3 VIEWS CLINICAL INDICATION: PAIN CONSTIPATION TECHNIQUE: 2 hip views and AP pelvis. COMPARISON: September 07, 2021. FINDINGS: BONES/JOINTS: Superior dislocation of the left femur-femoral head prosthesis, roughly 7.5 cm superior to the acetabulum. Hypertrophic changes of the acetabulum and shallow acetabulum suggesting chronic fracture of left superior-lateral acetabular margin and intra-articular soft tissue calcifications. These findings are similar to September 07, 2021. No destructive or sclerotic lesions. Note that overlapping bowel shadows may however obscure fine detail. Sacroiliac joint is unremarkable. No widening of the pubic symphysis. SOFT TISSUES: Unremarkable. No soft tissue swelling or gas. RAD/HIP, UNI W/ Pelvis 2-3 Views IMPRESSION: No acute findings in the pelvis or left hip. 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 Electronically Signed: Corin Adams MD at 19:05 EDT , CC: Dr. Jamie Boateng MD; Dr. Shailesh Ramírez DO Interior Design Project Manager: Signed Normal [facility] Lactic Acidon 12-06-2023 Lactate [Moles/Vol] 0.9 mmol/L Normal 0.4-1.9 [facility] Comment on above: Order Comment: Y Performed By: #### L 503.6005, L500.2500, L500.4050, L501.2450 #### [facility] [address] [place], [address] Lipaseon 12-06-2023 Lipase [Catalytic activity/Vol] 16 U/L Normal 13-75 [facility] Comment on above: Result Comment: Noelle avendano note: LIPASE revised reference range effective 22. New Lipase methodology. Expected to produce lower values than the previous assay method. NEW Reference Range: 13 - 75 U/L Performed By: #### L 503.6005, L500.2500, L500.4050, L501.2450 #### [facility] [address] [place], [address] .Auto Diffon 08-10-2023 Basophil, Absolute 0.1 10 3/mcL Normal 0.0-0.2 [facility] ([place]) Comment on above: Performed By: #### G FR, CBC, CMP, LIPID, FT4, ANEU, ADIFF #### [address] [address] Basophils/100 WBC (Bld) 1.3 % Normal 0.0-2.5 [facility] ([place]) Comment on above: Performed By: #### G FR, CBC, CMP, LIPID, FT4, ANEU, ADIFF #### [address] [address] Eosinophil, Absolute 0.1 10 3/mcL Normal 0.0-0.4 [facility] ([place]) Comment on above: Performed By: #### G FR, CBC, CMP, LIPID, FT4, ANEU, ADIFF #### [address] [address] Eosinophils/100 WBC (Bld) 1.9 % Normal 0.0-7.0 [facility] ([place] Comment on above: Performed By: #### G FR, CBC, CMP, LIPID, FT4, ANEU, ADIFF #### [address] [address] Lymphocyte, Absolute 1.1 10 3/mcL Normal 0.8-3.9 [facility] ([place]) Comment on above: Performed By: #### G FR, CBC, CMP, LIPID, FT4, ANEU, ADIFF #### [address] [address] Lymphocytes/100 WBC (Bld) 17.6 % Normal 10.0-50.0 [facility] ([place] Comment on above: Performed By: #### G FR, CBC, CMP, LIPID, FT4, ANEU, ADIFF #### [address] [address] Monocyte, Absolute 0.6 10 3/mcL Normal 0.2-1.0 [facility] ([place]) Comment on above: Performed By: #### G FR, CBC, CMP, LIPID, FT4, ANEU, ADIFF #### [address] [address] Monocytes/100 WBC (Bld) 8.8 % Normal 1.7-13.0 [facility] ([place] Comment on above: Performed By: #### G FR, CBC, CMP, LIPID, FT4, ANEU, ADIFF #### [address] [address] Neutrophils/100 WBC (Bld) 70.4 % Normal 37.0-80.0 [facility] ([place] Comment on above: Performed By: #### G FR, CBC, CMP, LIPID, FT4, ANEU, ADIFF #### [address] [address] .GFRon 08-10-2023 GFR Non- 43 ml/min/1.73sqm Normal [facility] ([place] Comment on above: Result Comment: GFR Population mean for , Non- Americans Ages 20-29 = 116 mL/min/1.73 sq.m. Ages 30-39 = 107 mL/min/1.73 sq.m. Ages 40-49 = 99 mL/min/1.73 sq.m. Ages 50-59 = 93 mL/min/1.73 sq.m. Ages 60-69 = 85 mL/min/1.73 sq.m. Ages 70+ = 75 mL/min/1.73 sq.m. Chronic Kidney Disease: Less than 60 mL/min/1.73 square meters End Stage Renal Disease: Less than 15 mL/min/1.73 square meters Performed By: #### G FR, CBC, CMP, LIPID, FT4, ANEU, ADIFF #### [address] [address] GFR 52 ml/min/1.73sqm Normal [facility] ([place] Comment on above: Result Comment: GFR Population mean for , Non- Americans Ages 20-29 = 116 mL/min/1.73 sq.m. Ages 30-39 = 107 mL/min/1.73 sq.m. Ages 40-49 = 99 mL/min/1.73 sq.m. Ages 50-59 = 93 mL/min/1.73 sq.m. Ages 60-69 = 85 mL/min/1.73 sq.m. Ages 70+ = 75 mL/min/1.73 sq.m. Chronic Kidney Disease: Less than 60 mL/min/1.73 square meters End Stage Renal Disease: Less than 15 mL/min/1.73 square meters Performed By: #### G FR, CBC, CMP, LIPID, FT4, ANEU, ADIFF #### [address] [address] .NEUABSon 08-10-2023 Neutrophil, Absolute 4.4 10 3/mcL Normal 2.9-6.2 [facility] ([place]) Comment on above: Performed By: #### G FR, CBC, CMP, LIPID, FT4, ANEU, ADIFF #### [address] [address] CBCon 08-10-2023 Erythrocyte distribution width (RBC) [Ratio] 15.3 % High 11.5-14.5 [facility] ([place] Comment on above: Performed By: #### G FR, CBC, CMP, LIPID, FT4, ANEU, ADIFF #### [address] [address] Hematocrit (Bld) [Volume fraction] 39.8 % Normal 37.0-47.0 [facility] ([place] Comment on above: Performed By: #### G FR, CBC, CMP, LIPID, FT4, ANEU, ADIFF #### [address] [address] Hgb 13.4 G/dL Normal 12.0-16.0 [facility] ([place] Comment on above: Performed By: #### G FR, CBC, CMP, LIPID, FT4, ANEU, ADIFF #### [address] [address] MCH (RBC) [Entitic mass] 30.2 pg Normal 27.0-31.2 [facility] ([place] Comment on above: Performed By: #### G FR, CBC, CMP, LIPID, FT4, ANEU, ADIFF #### [place] [address] MCHC 33.6 G/dL Normal 33.0-37.0 [facility] ([place] Comment on above: Performed By: #### G FR, CBC, CMP, LIPID, FT4, ANEU, ADIFF #### [address] [address] MCV (RBC) [Entitic vol] 90.0 fL Normal 80.0-94.0 [facility] ([place] Comment on above: Performed By: #### G FR, CBC, CMP, LIPID, FT4, ANEU, ADIFF #### [address] [address] Platelet 262 10 3/mcL Normal 130-400 [facility] ([place] Comment on above: Performed By: #### G FR, CBC, CMP, LIPID, FT4, ANEU, ADIFF #### [address] [address] Platelet mean volume (Bld) [Entitic vol] 8.4 fL Normal 7.4-10.4 [facility] ([place] Comment on above: Performed By: #### G FR, CBC, CMP, LIPID, FT4, ANEU, ADIFF #### [place] [id number] RBC 4.42 10 6/mcL Normal 4.20-5.40 [facility] ([place] Comment on above: Performed By: #### G FR, CBC, CMP, LIPID, FT4, ANEU, ADIFF #### [address] [address] WBC 6.3 10 3/mcL Normal 4.6-10.8 [facility] ([place] Comment on above: Performed By: #### G FR, CBC, CMP, LIPID, FT4, ANEU, ADIFF #### [address] [address] CMPon 08-10-2023 Albumin Level 3.9 G/dL Normal 3.4-4.8 [facility] ([place] Comment on above: Performed By: #### G FR, CBC, CMP, LIPID, FT4, ANEU, ADIFF #### [address] [address] Albumin/Globulin [Mass ratio] 1.4 {ratio} Normal 1.1-2.5 [facility] ([place] Comment on above: Performed By: #### G FR, CBC, CMP, LIPID, FT4, ANEU, ADIFF #### [address] [address] ALP [Catalytic activity/Vol] 105 U/L Normal 40-135 [facility] ([place] Comment on above: Performed By: #### G FR, CBC, CMP, LIPID, FT4, ANEU, ADIFF #### [address] [address] ALT [Catalytic activity/Vol] 24 U/L Normal 14-59 [facility] ([place] Comment on above: Performed By: #### G FR, CBC, CMP, LIPID, FT4, ANEU, ADIFF #### [address] [address] AST [Catalytic activity/Vol] 19 U/L Normal 10-40 [facility] ([place] Comment on above: Performed By: #### G FR, CBC, CMP, LIPID, FT4, ANEU, ADIFF #### [address] [address] Bili Total 0.7 mg/dL Normal 0.2-1.0 [facility] ([place] Comment on above: Result Comment: Use of this assay is not recommended for patients undergoing treatment with eltrombopag due to the potential for falsely elevated results. Performed By: #### G FR, CBC, CMP, LIPID, FT4, ANEU, ADIFF #### [address] [address] BUN/Creatinine Ratio 14 ratio Normal 7-27 [facility] ([place]) Comment on above: Performed By: #### G FR, CBC, CMP, LIPID, FT4, ANEU, ADIFF #### [address] [address] Calcium [Mass/Vol] 9.5 mg/dL Normal 8.4-10.2 [facility] ([place]) Comment on above: Performed By: #### G FR, CBC, CMP, LIPID, FT4, ANEU, ADIFF #### [address] [address] Chloride [Moles/Vol] 96 mmol/L Low 98-107 [facility] ([place]) Comment on above: Performed By: #### G FR, CBC, CMP, LIPID, FT4, ANEU, ADIFF #### [address] [address] CO2 [Moles/Vol] 33 mmol/L High 23-31 [facility] ([place] Comment on above: Performed By: #### G FR, CBC, CMP, LIPID, FT4, ANEU, ADIFF #### [address] [address] Creatinine [Mass/Vol] 1.21 mg/dL High 0.55-1.02 [facility] ([place] Comment on above: Performed By: #### G FR, CBC, CMP, LIPID, FT4, ANEU, ADIFF #### [address] [address] Electrolyte Balance 4.0 mEq/L Normal 4.0-15.0 [facility] ([place]) Comment on above: Performed By: #### G FR, CBC, CMP, LIPID, FT4, ANEU, ADIFF #### [address] [address] Globulin 2.8 G/dL Normal [facility] ([place] Comment on above: Performed By: #### G FR, CBC, CMP, LIPID, FT4, ANEU, ADIFF #### [address] [address] Glucose [Mass/Vol] 93 mg/dL Normal 83-110 [facility] ([place] Comment on above: Performed By: #### G FR, CBC, CMP, LIPID, FT4, ANEU, ADIFF #### [address] [address] Potassium [Moles/Vol] 4.5 mmol/L Normal 3.5-5.1 [facility] [place] Comment on above: Performed By: #### G FR, CBC, CMP, LIPID, FT4, ANEU, ADIFF #### [address] [address] Sodium [Moles/Vol] 133 mmol/L Low 136-145 [facility] ([place] Comment on above: Performed By: #### G FR, CBC, CMP, LIPID, FT4, ANEU, ADIFF #### [address] [address] Total Protein 6.7 G/dL Normal 6.4-8.2 [facility] ([place] Comment on above: Performed By: #### G FR, CBC, CMP, LIPID, FT4, ANEU, ADIFF #### [address] [address] Urea nitrogen [Mass/Vol] 17 mg/dL Normal 7-18 [facility] ([place] Comment on above: Performed By: #### G FR, CBC, CMP, LIPID, FT4, ANEU, ADIFF #### [address] [address] FT4on 08-10-2023 Free T4 [Mass/Vol] 1.37 ng/dL Normal 0.76-1.46 [facility] ([place] Comment on above: Performed By: #### G FR, CBC, CMP, LIPID, FT4, ANEU, ADIFF #### [place] [address] [place], [place] [address] LABORATORYOrdered By: SYSTEM SYSTEM on 08-10-2023 Albumin BCP dye [Mass/Vol] 3.9 G/dL Normal 3.4 - 4.8 G/dL AO ADM SS Albumin/Globulin [Mass ratio] 1.4 {ratio} Normal 1.1 - 2.5 ratio AO ADM SS ALP [Catalytic activity/Vol] 105 U/L Normal 40 - 135 U/L AO ADM SS ALT With P-5'-P [Catalytic activity/Vol] 24 U/L Normal 14 - 59 U/L AO ADM SS AST With P-5'-P [Catalytic activity/Vol] 19 U/L Normal 10 - 40 U/L AO ADM SS Basophil, Absolute 0.1 103/mcL Normal 0.0 - 0.2 10^3/mcL AO Workflow SS Basophils/100 WBC (Bld) 1.3 % Normal 0.0 - 2.5 % AO Workflow SS Bilirubin [Mass/Vol] 0.7 mg/dL Normal 0.2 - 1 .0 mg/dL AO ADM SS Comment on above: Interpretive Data: U se of this assay is not recommended for patients undergoing treatment with eltrombopag due to the potential for falsely elevated results. Calcium [Mass/Vol] 9.5 mg/dL Normal 8.4 - 10. 2 mg/dL AO ADM SS Chloride [Moles/Vol] 96 mmol/L Low 98 - 10 7 mmol/L AO ADM SS CO2 [Moles/Vol] 33 mmol/L High 23 - 31 mmol/L AO ADM SS Creatinine [Mass/Vol] 1.21 mg/dL High 0.55 - 1.02 mg/dL AO ADM SS Electrolyte Balance 4.0 mEq/L Normal 4.0 - 15 .0 mEq/L AO ADM SS Eosinophil, Absolute 0.1 103/mcL Normal 0.0 - 0 .4 10^3/mcL AO Workflow SS Eosinophils/100 WBC (Bld) 1.9 % Normal 0.0 - 7.0 % AO Workflow SS Erythrocyte distribution width (RBC) [Ratio] 15.3 % High 11.5 - 14.5 % AO Workflow SS Free T4 [Mass/Vol] 1.37 ng/dL Normal 0.76 - 1. 46 ng/dL AO ADM SS GFR/1.73 sq M.predicted among blacks MDRD (S/P/Bld) [Vol rate/Area] 52 ml/min/1.73sqm Invalid Interpretation Code AO Chemistry S Comment on above: Interpretive Data: GFR Population mean for , Non- Americans Ages 20-29 = 116 mL/min/1.73 sq.m. Ages 30-39 = 107 mL/min/1.73 sq.m. Ages 40-49 = 99 mL/min/1.73 sq.m. Ages 50-59 = 93 mL/min/1.73 sq.m. Ages 60-69 = 85 mL/min/1.73 sq.m. Ages 70+ = 75 mL/min/1.73 sq.m. Chronic Kidney Disease: Less than 60 mL/min/1.73 square meters End Stage Renal Disease: Less than 15 mL/min/1.73 square meters GFR/1.73 sq M.predicted among non-blacks MDRD (S/P/Bld) [Vol rate/Area] 43 ml/min/1.73sqm Invalid Interpretation Code AO Chemistry S Comment on above: Interpretive Data: GFR Population mean for , Non- Americans Ages 20-29 = 116 mL/min/1.73 sq.m. Ages 30-39 = 107 mL/min/1.73 sq.m. Ages 40-49 = 99 mL/min/1.73 sq.m. Ages 50-59 = 93 mL/min/1.73 sq.m. Ages 60-69 = 85 mL/min/1.73 sq.m. Ages 70+ = 75 mL/min/1.73 sq.m. Chronic Kidney Disease: Less than 60 mL/min/1.73 square meters End Stage Renal Disease: Less than 15 mL/min/1.73 square meters Globulin 2.8 G/dL Invalid Interpretation Code AO ADM SS Glucose [Mass/Vol] 93 mg/dL Normal 83 - 110 mg/dL AO ADM SS Hematocrit (Bld) [Volume fraction] 39.8 % Normal 37.0 - 47.0 % AO Workflow SS Hemoglobin (Bld) [Mass/Vol] 13.4 G/dL Normal 12.0 - 16.0 G/dL AO Workflow SS Lymphocyte, Absolute 1.1 103/mcL Normal 0.8 - 3 .9 10^3/mcL AO Workflow SS Lymphocytes/100 WBC (Bld) 17.6 % Normal 10.0 - 50.0 % AO Workflow SS MCH (RBC) [Entitic mass] 30.2 pg Normal 27.0 - 31.2 pg AO Workflow SS MCHC 33.6 G/dL Normal 33.0 - 37.0 G/dL AO Workflow SS MCV (RBC) [Entitic vol] 90.0 fL Normal 80.0 - 94.0 fL AO Workflow SS Monocyte, Absolute 0.6 103/mcL Normal 0.2 - 1.0 10^3/mcL AO Workflow SS Monocytes/100 WBC (Bld) 8.8 % Normal 1.7 - 13.0 % AO Workflow SS Neutrophil, Absolute 4.4 103/mcL Normal 2.9 - 6 .2 10^3/mcL AO Workflow SS Neutrophils/100 WBC (Bld) 70.4 % Normal 37.0 - 80.0 % AO Workflow SS Platelet mean volume (Bld) [Entitic vol] 8.4 fL Normal 7.4 - 10.4 fL AO Workflow SS Platelets (Bld) [#/Vol] 262 103/mcL Normal 130 - 400 10^3/mcL AO Workflow SS Potassium [Moles/Vol] 4.5 mmol/L Normal 3.5 - 5.1 mmol/L AO ADM SS Protein [Mass/Vol] 6.7 G/dL Normal 6.4 - 8.2 G/dL AO ADM SS RBC (Bld) [#/Vol] 4.42 106/mcL Normal 4.20 - 5.4 0 10^6/mcL AO Workflow SS Sodium [Moles/Vol] 133 mmol/L Low 136 - 145 mmol/L AO ADM SS Urea nitrogen [Mass/Vol] 17 mg/dL Normal 7 - 18 mg/dL AO ADM SS Urea nitrogen/Creatinine [Mass ratio] 14 ratio Normal 7 - 27 ratio AO ADM SS WBC (Bld) [#/Vol] 6.3 103/mcL Normal 4.6 - 10.8 10^3/mcL AO Workflow SS LABORATORYOrdered By: Ric Montilla on 08-10-2023 Cholesterol [Mass/Vol] 203 mg/dL High 0 - 200 mg/dL AO ADM SS Comment on above: Interpretive Data: C holesterol Reference Interval: Less than 200 Desirable 200-239 Borderline high risk 240 and above High risk Cholesterol in HDL [Mass/Vol] 69 mg/dL High 40 - 60 mg/dL AO ADM SS Cholesterol in LDL [Mass/Vol] 119 mg/dL Normal 0 - 130 mg/dL AO ADM SS Triglyceride [Mass/Vol] 77 mg/dL Normal 0 - 150 mg/dL AO ADM SS Comment on above: Interpretive Data: T riglyceride Reference Interval: Less than 150 Normal 150-199 Borderline high risk 200-499 High risk 500 or higher Very high risk LIPIDon 08-10-2023 Cholesterol [Mass/Vol] 203 mg/dL High 0-200 [facility] ([place]) Comment on above: Result Comment: Chol esterol Reference Interval: Less than 200 Desirable 200-239 Borderline high risk 240 and above High risk Performed By: #### G FR, CBC, CMP, LIPID, FT4, ANEU, ADIFF #### [address] [address] Cholesterol in HDL [Mass/Vol] 69 mg/dL High 40-60 [facility] ([place]) Comment on above: Performed By: #### G FR, CBC, CMP, LIPID, FT4, ANEU, ADIFF #### [address] [address] Cholesterol in LDL [Mass/Vol] 119 mg/dL Normal 0-130 [facility] ([place]) Comment on above: Performed By: #### G FR, CBC, CMP, LIPID, FT4, ANEU, ADIFF #### [address] [address] Triglyceride [Mass/Vol] 77 mg/dL Normal 0-150 [facility] ([place]) Comment on above: Result Comment: Trig lyceride Reference Interval: Less than 150 Normal 150-199 Borderline high risk 200-499 High risk 500 or higher Very high risk Performed By: #### G FR, CBC, CMP, LIPID, FT4, ANEU, ADIFF #### [address] [address] Abdomen Completeon 3 Abdomen Complete [facility] [address] [place] [id number] Abdomen Complete MR#: [id number] Acct: [id number] Name: DEBRA COLE Rep #: [id number] : 1940 F 83 From: Riley gresham MD PCP: Dr. Jamie Boateng MD Status: REG CLI Study: Abdomen Complete Date of Exam: 03/15/23 Exam# [id number] Ordering Dr: Jamie Boateng MD [id number] STUDY: ABDOMINAL ULTRASOUND REASON FOR EXAM: Female, 83 years old. HEPATOMEGALY, ABD PAIN, CONSTIPATION TECHNIQUE: Transabdominal ultrasound was performed with real-time and static webb scale imaging. TECHNICAL QUALITY: Adequate. COMPARISON: None. FINDINGS: Liver: The liver measures 17.3 cm. There is normal echogenicity of the liver. The bile ducts are within normal limits. There is hepatic color flow. The direction of portal flow is hepatopetal. There is no demonstrated mass lesion. Portal vein measurement: Gallbladder: Normal distended gallbladder. The gallbladder wall measures mm. There is a negative sonographic Gibbons''s sign. There is no pericholecystic fluid. There are no gallstones. Common Bile Duct (C.B.D.): The common bile duct measures 2 mm. Pancreas: Normal size of the head, body and tail of the pancreas. There is normal echogenicity of the pancreas. There is no demonstrated pancreatic mass or cyst. Spleen: Normal size of the spleen. The spleen measures 7.6 cm. Right Kidney: Normal size of the right kidney. The right kidney measures 10.4 cm. Normal renal cortex. The right cortex measures 0.9 cm. There is no demonstrated renal mass or cyst. There is no right hydronephrosis. Left Kidney: Normal size of the left kidney. The left kidney measures 8.4 x 4.5 x 3.6 cm. Normal renal cortex. The left cortex measures 1.1 cm. There is no demonstrated renal mass or cyst. There is no left hydronephrosis. Aorta: 2.0 cm. No aneurysm. Prominent irregular atherosclerotic plaque. I.V.C.: The IVC is patent. There is no ascites. US/Abdomen Complete IMPRESSION: No definite acute or significant abnormality seen. Electronically Signed: Riley Benson MD at 17:20 EST , CC: Dr. Jamie Boateng MD Interior Design Project Manager: Signed Normal [facility] Basophil percentageOrdered B y: Dr. Perez on 06-13-2022 Basophil percentage < 10.0 umol/L - [facility] Absolute lymphocyte countOrd ered By: Dr. Goodman on 06-11-2022 Lymphocytes Auto (Unsp spec) [#/Vol] 0.78 10*3/uL 0.83-4.51 [facility] Basophil percentageOrdered B y: Dr. Goodman on 06-11-2022 Basophil percentage Not Reportable [facility] Bilirubin [Mass/Vol] 0.20 mg/dL 0.20-1.00 [facility] Comment on above: For patients on eltr ombopag therapy, use of Dimension [place] TBIL is not recommended. Chloride [Moles/Vol] 94 mmol/L 98-107 [facility] Glucose [Mass/Vol] 168 mg/dL 74-106 [facility] Comment on above: Fasting Glucose resu lt greater than or equal to 126 mg/dL suggests DIABETES MELLITUS per A.D.A. criteria. Neutrophils (Bld) [#/Vol] 11.4 10*3/uL 2.0-7.7 [facility] Potassium [Moles/Vol] 4.3 mmol/L 3.5-5.1 [facility] Protein [Mass/Vol] 6.2 g/dL 6.4-8.2 [facility] Sodium [Moles/Vol] 135 mmol/L 136-145 [facility] WBC (Bld) [#/Vol] 13.0 10*3/uL 4.4-11.0 [facility] Blood band neutrophil count as percentage of total leukocytesOrdered By: Dr. Goodman on 06-11-2022 Band form neutrophils/100 WBC (Bld) 2 % 0-5 [facility] Blood erythrocytes count (nu mber/volume)Ordered By: Dr. Goodman on 06-11-2022 RBC (Bld) [#/Vol] 4.07 10*6/uL 4.2-5.4 [facility] Blood hemoglobin measurement (mass/volume)Ordered By: Dr. Goodman on 06-11-2022 Hemoglobin (Bld) [Mass/Vol] 11.7 g/dL 12.0-15.0 [facility] Blood lymphocytes/100 leukoc ytesOrdered By: Dr. Goodman on 06-11-2022 Lymphocytes/100 WBC (Bld) 6 % 19-41 [facility] Blood metamyelocytes/100 matt kocytesOrdered By: Dr. Goodman on 06-11-2022 Metamyelocytes/100 WBC (Bld) 2 % 0-1 [facility] Blood monocytes/100 leukocyt esOrdered By: Dr. Goodman on 06-11-2022 Monocytes/100 WBC (Bld) 2 % 0-10 [facility] Blood platelet adequacy dete ction by light microscopyOrdered By: Dr. Goodman on 06-11-2022 Platelets LM Ql (Bld) MOD INC ADEQ [facility] Blood platelet mean volumeOr dered By: Dr. Goodman on 06-11-2022 Platelet mean volume (Bld) [Entitic vol] 9.2 fL 6.2-12.0 [facility] Blood segmented neutrophils/ [address]: [address] Goodman on 06-11-2022 Segmented neutrophils/100 WBC (Bld) 86 % 47-70 [facility] Determination of erythrocyte mean corpuscular volume (MCV)Ordered By: Dr. Goodman on 06-11-2022 MCV (RBC) [Entitic vol] 91.2 fL 81-99 [facility] Comment on above: Delta: 97.6 on 06/10-1215 Hematocrit Auto (Bld) [Volum e fraction]Ordered By: Dr. Goodman on 06-11-2022 Hematocrit (Bld) [Volume fraction] 37.1 % 37-47 [facility] Laboratory - Chemistry and C hemistry - challengeOrdered By: Dr. Goodman on 06-11-2022 ALP [Catalytic activity/Vol] 153 U/L 45-117 [facility] ALT [Catalytic activity/Vol] 13 U/L 13-56 [facility] CO2 [Moles/Vol] 35.0 mmol/L 21.0-32.0 [facility] Globulin (S) [Mass/Vol] 3.8 g/dL 2.2-4.2 [facility] Natriuretic peptide B (Bld) [Mass/Vol] 527.0 pg/mL 0-100 [facility] Urea nitrogen/Creatinine [Mass ratio] 30.3 mg/mg 10-20 [facility] Laboratory - Hematology and Cell countsOrdered By: Dr. Goodman on 06-11-2022 Erythrocyte distribution width (RBC) [Entitic vol] 47.3 fL 35.1-43.9 [facility] Erythrocyte distribution width (RBC) [Ratio] 14.0 % 11.6-14.6 [facility] MCH (RBC) [Entitic mass] 28.7 pg 27.0-32.0 [facility] Myelocytes/100 WBC (Bld) 2 % 0-0 [facility] MCHC Auto (RBC) [Mass/Vol]Or dered By: Dr. Goodman on 06-11-2022 MCHC (RBC) [Mass/Vol] 31.5 g/dL 32-36 [facility] Comment on above: Delta: 29.7 on 06/10-1215 No Panel InformationOrdered By: Dr. Goodman on 06-11-2022 Estimated Creatinine Clearance Calc 22.53 ml/min [facility] Estimated GFR (MDRD) Amer 56 mL/min >60 [facility] Comment on above: GFR Calc Estimated GFR (MDRD) Non-Af Amer 46 mL/min >60 [facility] Comment on above: Non- GFR Calc Platelets bldOrdered By: Dr. Goodman on 06-11-2022 Platelets (Bld) [#/Vol] 529 10*3/uL 150-450 [facility] RBC morphologyOrdered By: Dr Yoan Goodman on 06-11-2022 RBC morphology finding Nom (Bld) NORM C+C NORMAL NORM C&C [facility] Review by pathologistOrdered By: Dr. Goodman on 06-11-2022 Pathologist review Salas (Unsp spec) [Interp] Reviewed [facility] Comment on above: Previous reported re sult: Ruby gabriel Edited by: RGOAKANKSHA on 06/11/22:1244Neutrophilic leukocytosis with left shift. Thrombocytosis.Clinical correlation necessary.Darell Krishnamurthy M.D. 06/11/22 AMENDED REPORT 06/11/22 1244 PATH REV previously reported as: Ruby gabriel Serum or plasma albumin gab urement (mass/volume)Ordered By: Dr. Goodman on 06-11-2022 Albumin [Mass/Vol] 2.4 g/dL 3.2-5.0 [facility] Serum or plasma albumin/glob ulin mass ratioOrdered By: Dr. Goodman on 06-11-2022 Albumin/Globulin [Mass ratio] 0.6 {ratio} 0.9-2.4 [facility] Serum or plasma calcium gab urement (mass/volume)Ordered By: Dr. Goodman on 06-11-2022 Calcium [Mass/Vol] 9.1 mg/dL 8.5-10.1 [facility] Serum or plasma creatinine m easurement (mass/volume)Ordered By: Dr. Goodman on 06-11-2022 Creatinine [Mass/Vol] 1.19 mg/dL 0.55-1.02 [facility] Comment on above: The validity of the calculated GFR & GFRAA in patients over 70 years has not been determined. Clinical correlation is essential. Serum or plasma urea nitroge n measurement (mass/volume)Ordered By: Dr. Goodman on 06-11-2022 Urea nitrogen [Mass/Vol] 36 mg/dL 7-18 [facility] Thin prep Papanicolaou smear with manual screeningOrdered By: Dr. Goodman on 06-11-2022 Thin prep Papanicolaou smear with manual screening 14 U/L 15-37 [facility] Thin prep Papanicolaou smear with manual screening 6 5-15 [facility] Total cell countOrdered By: Dr. Goodman on 06-11-2022 Cells counted Molgen (Bld/Tiss) [#] 100 MANUAL DIFF [facility] Assessment of wrist artery p atency prior to arterial punctureOrdered By: Dr. Bruce on 06-10-2022 Arterial patency Wrist artery --pre arterial puncture Positive [facility] Base excessOrdered By: Dr. Tej boss on 06-10-2022 Base excess Calc (BldV) [Moles/Vol] 6 mmol/L -2-2 [facility] Basophil percentageOrdered B y: Dr. Bruce on 06-10-2022 Basophil percentage 31.4 mmol/L 22-26 [facility] Basophils/100 WBC (Bld) 95 % 95-99 [facility] Basophils/100 WBC (Bld) 0.3 % 0-1 [facility] Eosinophils/100 WBC (Bld) 0.6 % 0-5 [facility] Blood lymphocytes/100 leukoc ytesOrdered By: Dr. Bruce on 06-10-2022 Lymphocytes/100 WBC (Bld) 6.3 % 19-41 [facility] Blood monocytes/100 leukocyt esOrdered By: Dr. Bruce on 06-10-2022 Monocytes/100 WBC (Bld) 7.6 % 0-10 [facility] CO2 (BldA) [Partial pressure ]Ordered By: Dr. Bruce on 06-10-2022 CO2 (Bld) [Partial pressure] 56.6 mm[Hg] 35-45 [facility] Influenza virus A and B and SARS-CoV-2 (COVID-19) Ag panel - Upper respiratory specimOrdered By: Dr. Bruce on 06-10-2022 SARS-CoV-2 (COVID-19) RNA DIANNA+probe Ql (Resp) [facility] Laboratory - Hematology and Cell countsOrdered By: Dr. Bruce on 06-10-2022 Immature granulocytes/100 WBC (Bld) 4.000 % 0.0-0.9 [facility] Comment on above: IG% - Immature Granu locytes (promyelocytes, myelocytes and metamyelocytes) > 1% indicates that a LEFT SHIFT is Present. Nucleated RBC/100 WBC (Bld) [Ratio] 0 % 0-5 [facility] No Panel InformationOrdered By: Dr. Bruce on 06-10-2022 Blood Gas Liter Flow 2.0 /min [facility] Blood Gas Sample Site R Radial [facility] Blood Gas Specimen Type ART [facility] Blood Gas Total CO2 33 mmol/L [facility] Troponin I High Sensitivity 13 pg/mL 3.0-54.0 [facility] Comment on above: Please Note: New Radha t Units and Gender Specific Reference Ranges. For more information see Policy Stat Procedure [place] High Sensitivity Troponin (TNIH) and attachments. Oxygen (BldA) [Partial press ure]Ordered By: Dr. Bruce on 06-10-2022 Oxygen (Bld) [Partial pressure] 83 mmHG 75-100 [facility] pH measurementOrdered By: Dr Yoan Bruce on 06-10-2022 pH (Unsp spec) 7.35 [pH] 7.35-7.45 [facility] LABORATORYOrdered By: Pema Stephens on 12-04-2021 Albumin BCP dye [Mass/Vol] 3.7 G/dL Invalid Interpretation Code 3.4 - 4.8 G/dL AO ADM SS Albumin/Globulin [Mass ratio] 1.2 {ratio} Invalid Interpretation Code 1.1 - 2.5 ratio AO ADM SS ALP [Catalytic activity/Vol] 173 U/L Invalid Interpretation Code 40 - 135 U/L AO ADM SS ALT With P-5'-P [Catalytic activity/Vol] 22 U/L Invalid Interpretation Code 14 - 59 U/L AO ADM SS AST With P-5'-P [Catalytic activity/Vol] 36 U/L Invalid Interpretation Code 10 - 40 U/L AO ADM SS Bilirubin [Mass/Vol] 0.3 mg/dL Invalid Interpretation Code 0.2 - 1.0 mg/dL AO ADM SS Calcium [Mass/Vol] 9.6 mg/dL Invalid Interpretation Code 8.4 - 10.2 mg/dL AO ADM SS Chloride [Moles/Vol] 102 mmol/L Invalid Interpretation Code 98 - 107 mmol/L AO ADM SS Cholesterol [Mass/Vol] 215 mg/dL Invalid Interpretation Code 0 - 200 mg/dL AO ADM SS Cholesterol in HDL [Mass/Vol] 56 mg/dL Invalid Interpretation Code 40 - 60 mg/dL AO ADM SS Cholesterol in LDL [Mass/Vol] 139 mg/dL Invalid Interpretation Code 0 - 130 mg/dL AO ADM SS CO2 [Moles/Vol] 30 mmol/L Invalid Interpretation Code 23 - 31 mmol/L AO ADM SS Creatinine [Mass/Vol] 0.76 mg/dL Invalid Interpretation Code 0.55 - 1.02 mg/dL AO ADM SS Electrolyte Balance 8.0 mEq/L Invalid Interpretation Code 4.0 - 15.0 mEq/L AO ADM SS Ferritin [Mass/Vol] 305.0 ng/mL Invalid Interpretation Code 8.0 - 252.0 ng/mL AO ADM SS Free T4 [Mass/Vol] 1.22 ng/dL Invalid Interpretation Code 0.76 - 1.46 ng/dL AO ADM SS Globulin 3.0 G/dL Invalid Interpretation Code AO ADM SS Glucose [Mass/Vol] 102 mg/dL Invalid Interpretation Code 83 - 110 mg/dL AO ADM SS Potassium [Moles/Vol] 4.7 mmol/L Invalid Interpretation Code 3.5 - 5.1 mmol/L AO ADM SS Protein [Mass/Vol] 6.7 G/dL Invalid Interpretation Code 6.4 - 8.2 G/dL AO ADM SS Sodium [Moles/Vol] 140 mmol/L Invalid Interpretation Code 136 - 145 mmol/L AO ADM SS Triglyceride [Mass/Vol] 98 mg/dL Invalid Interpretation Code 0 - 150 mg/dL AO ADM SS TSH Qn 4.04 m[IU]/L Invalid Interpretation Code 0.36 - 3.74 mcIU/mL AO ADM SS Urea nitrogen [Mass/Vol] 28 mg/dL Invalid Interpretation Code 7 - 18 mg/dL AO ADM SS Urea nitrogen/Creatinine [Mass ratio] 37 ratio Invalid Interpretation Code 7 - 27 ratio AO ADM SS LABORATORYOrdered By: Liat Torres on 12-04-2021 Basophil, Absolute 0.1 103/mcL Invalid Interpretation Code 0.0 - 0.2 10^3/mcL AO Workflow SS Basophils/100 WBC (Bld) 1.2 % Invalid Interpretation Code 0.0 - 2.5 % AO Workflow SS Eosinophil, Absolute 0.2 103/mcL Invalid Interpretation Code 0.0 - 0.4 10^3/mcL AO Workflow SS Eosinophils/100 WBC (Bld) 3.3 % Invalid Interpretation Code 0.0 - 7.0 % AO Workflow SS Erythrocyte distribution width (RBC) [Ratio] 15.6 % Invalid Interpretation Code 11.5 - 14.5 % AO Workflow SS Hematocrit (Bld) [Volume fraction] 36.6 % Invalid Interpretation Code 37.0 - 47.0 % AO Workflow SS Hemoglobin (Bld) [Mass/Vol] 12.2 G/dL Invalid Interpretation Code 12.0 - 16.0 G/dL AO Workflow SS Lymphocyte, Absolute 1.4 103/mcL Invalid Interpretation Code 0.8 - 3.9 10^3/mcL AO Workflow SS Lymphocytes/100 WBC (Bld) 19.8 % Invalid Interpretation Code 10.0 - 50.0 % AO Workflow SS MCH (RBC) [Entitic mass] 29.2 pg Invalid Interpretation Code 27.0 - 31.2 pg AO Workflow SS MCHC 33.3 G/dL Invalid Interpretation Code 33.0 - 37.0 G/dL AO Workflow SS MCV (RBC) [Entitic vol] 87.6 fL Invalid Interpretation Code 80.0 - 94.0 fL AO Workflow SS Monocyte, Absolute 0.7 103/mcL Invalid Interpretation Code 0.2 - 1.0 10^3/mcL AO Workflow SS Monocytes/100 WBC (Bld) 9.9 % Invalid Interpretation Code 1.7 - 13.0 % AO Workflow SS Neutrophil, Absolute 4.6 103/mcL Invalid Interpretation Code 2.9 - 6.2 10^3/mcL AO Workflow SS Neutrophils/100 WBC (Bld) 65.8 % Invalid Interpretation Code 37.0 - 80.0 % AO Workflow SS Platelet mean volume (Bld) [Entitic vol] 7.9 fL Invalid Interpretation Code 7.4 - 10.4 fL AO Workflow SS Platelets (Bld) [#/Vol] 321 103/mcL Invalid Interpretation Code 130 - 400 10^3/mcL AO Workflow SS RBC (Bld) [#/Vol] 4.18 106/mcL Invalid Interpretation Code 4.20 - 5.40 10^6/mcL AO Workflow SS WBC 7.0 103/mcL Invalid Interpretation Code 4.6 - 10.8 10^3/mcL AO Workflow SS LABORATORYOrdered By: SYSTEM SYSTEM on 12-04-2021 GFR 89 ml/min/1.73sqm Invalid Interpretation Code AO Chemistry S GFR Non- 73 ml/min/1.73sqm Invalid Interpretation Code AO Chemistry S Monocyte distribution width Auto (Bld) [Entitic vol] Not Performed 1 *NA* (12/04/21 11:07 AM) Invalid Interpretation Code 0.00 - 20.00 AO Hematology S Comment on above: Result Comment: MDW testing performed only on adult ER patients between the ages of 18-89 years. Glucose Glucometer (BldC) [M ass/Vol]on 09-18-2021 Glucose [Mass/Vol] 90 mg/dL 74-106 [facility] Work Phone: Comment on above: MANAGEMENT OF PATIEN T CARE PER NURSING PROTOCOL Absolute lymphocyte counton 09-17-2021 Lymphocytes Auto (Unsp spec) [#/Vol] 1.56 10*3/uL 0.83-4.51 [facility] Work Phone: Basophil percentageon 2021 Basophils/100 WBC (Bld) 1.0 % 0-1 [facility] Work Phone: Bilirubin [Mass/Vol] 0.20 mg/dL 0.20-1.00 [facility] Work Phone: Comment on above: For patients on eltr ombopag therapy, use of Dimension [place] TBIL is not recommended. Chloride [Moles/Vol] 107 mmol/L 98-107 [facility] Work Phone: Eosinophils/100 WBC (Bld) 4.9 % 0-5 [facility] Work Phone: Glucose [Mass/Vol] 93 mg/dL 74-106 [facility] Work Phone: Neutrophils (Bld) [#/Vol] 3.5 10*3/uL 2.0-7.7 [facility] Work Phone: Neutrophils/100 WBC (Bld) 55.1 % 47-70 [facility] Work Phone: Potassium [Moles/Vol] 3.9 mmol/L 3.5-5.1 [facility] Work Phone: Protein [Mass/Vol] 5.7 g/dL 6.4-8.2 [facility] Work Phone: Sodium [Moles/Vol] 139 mmol/L 136-145 [facility] Work Phone: WBC (Bld) [#/Vol] 6.3 10*3/uL 4.4-11.0 [facility] Work Phone: [phone] Blood erythrocytes count (nu mber/volume)on 09-17-2021 RBC (Bld) [#/Vol] 3.54 10*6/uL 4.2-5.4 [facility]: [phone] Blood hemoglobin measurement (mass/volume)on 09-17-2021 Hemoglobin (Bld) [Mass/Vol] 10.1 g/dL 12.0-15.0 [facility] Work Phone: [phone] Blood lymphocytes/100 leukoc yteson 09-17-2021 Lymphocytes/100 WBC (Bld) 24.8 % 19-41 [facility] Work Phone: [phone] Blood monocytes/100 leukocyt eson 09-17-2021 Monocytes/100 WBC (Bld) 12.6 % 0-10 [facility] Work Phone: [phone] Blood platelet mean volumeon 09-17-2021 Platelet mean volume (Bld) [Entitic vol] 10.0 fL 6.2-12.0 [facility] Work Phone: [phone] Determination of erythrocyte mean corpuscular volume (MCV)on 09-17-2021 MCV (RBC) [Entitic vol] 93.5 fL 81-99 [facility] Work Phone: [phone] Hematocrit Auto (Bld) [Volum e fraction]on 09-17-2021 Hematocrit (Bld) [Volume fraction] 33.1 % 37-47 [facility] Work Phone: [phone] Laboratory - Chemistry and C hemistry - challengeon 09-17-2021 ALP [Catalytic activity/Vol] 163 U/L 45-117 [facility] Work Phone: ALT [Catalytic activity/Vol] 30 U/L 13-56 [facility] Work Phone: [phone] CO2 [Moles/Vol] 29.0 mmol/L 21.0-32.0 [facility] Work Phone: [phone] Globulin (S) [Mass/Vol] 3.1 g/dL 2.2-4.2 [facility] Work Phone: [phone] Magnesium [Mass/Vol] 1.8 mg/dL 1.6-2.6 [facility] Work Phone: [phone] Urea nitrogen/Creatinine [Mass ratio] 83.9 mg/mg 10-20 [facility] Work Phone: [phone] Laboratory - Hematology and Cell countson 09-17-2021 Erythrocyte distribution width (RBC) [Entitic vol] 59.2 fL 35.1-43.9 [facility] Work Phone: [phone] Erythrocyte distribution width (RBC) [Ratio] 17.1 % 11.6-14.6 [facility] Work Phone: [phone] Immature granulocytes/100 WBC (Bld) 1.600 % 0.0-0.9 [facility] Work Phone: [phone] Comment on above: IG% - Immature Granu locytes (promyelocytes, myelocytes and metamyelocytes) > 1% indicates that a LEFT SHIFT is Present. MCH (RBC) [Entitic mass] 28.5 pg 27.0-32.0 [facility] Work Phone: [phone] Nucleated RBC/100 WBC (Bld) [Ratio] 0 % 0-5 [facility] Work Phone: [phone] MCHC Auto (RBC) [Mass/Vol]on 09-17-2021 MCHC (RBC) [Mass/Vol] 30.5 g/dL 32-36 [facility] Work Phone: [phone] Panel Informationon 09-17 Estimated Creatinine Clearance Calc 27.48 ml/min [facility] Work Phone: [phone] Estimated GFR (MDRD) Amer 116 mL/min >60 [facility] Work Phone: [phone] Comment on above: GFR Calc Estimated GFR (MDRD) Non-Af Amer 96 mL/min >60 [facility] Work Phone: Comment on above: Non- GFR Calc Platelets bldon 09-17-2021 Platelets (Bld) [#/Vol] 381 10*3/uL 150-450 [facility] Work Phone: [phone] Serum or plasma albumin gab urement (mass/volume)on 09-17-2021 Albumin [Mass/Vol] 2.6 g/dL 3.2-5.0 [facility] Work Phone: [phone] Serum or plasma albumin/glob ulin mass ratioon 09-17-2021 Albumin/Globulin [Mass ratio] 0.8 {ratio} 0.9-2.4 [facility] Work Phone: [phone] Serum or plasma calcium gab urement (mass/volume)on 09-17-2021 Calcium [Mass/Vol] 9.0 mg/dL 8.5-10.1 [facility] Work Phone: [phone] Serum or plasma creatinine m easurement (mass/volume)on 09-17-2021 Creatinine [Mass/Vol] 0.63 mg/dL 0.55-1.02 [facility] Work Phone: Comment on above: The validity of the calculated GFR & GFRAA in patients over 70 years has not been determined. Clinical correlation is essential. Serum or plasma urea nitroge n measurement (mass/volume)on 09-17-2021 Urea nitrogen [Mass/Vol] 53 mg/dL 7-18 [facility] Work Phone: [phone] Thin prep Papanicolaou smear with manual screeningon 09-17-2021 Thin prep Papanicolaou smear with manual screening 23 U/L 15-37 [facility] Work Phone: [phone] Thin prep Papanicolaou smear with manual screening 3 5-15 [facility] Work Phone: Laboratory - Microbiology an d Antimicrobial susceptibilityon 09-12-2021 SARS-CoV-2 (COVID-19) RNA DIANNA+probe Ql (Unsp spec) Not detected Not Detect [facility] Work Phone: Comment on above: Normal Reference Ran ge: Not DetectedMethod:(RT-PCR) real-time reverse transcriptase PCRLuminex YUMIKO Instrument*The Food and Drug Administration (FDA) has issued an Emergency Use Authorization (EAU) for the YUMIKO SARS-CoV-2 Assay for the rapid detection of the virus that causes COVID-19. This test has been validated, but the FDAs independent review of this validation is pending.*Negative results do not preclude infection and should not be used as the sole basis for treatment or patient management. Optimum specimen types and timing for peak viral levels during infections caused by SARS-CoV-2 have not been determined. Collection of multiple specimens from the same patient may be necessary to detect the virus. The possibility of a false negative result should be considered if the patient has clinical presentation or has had recent exposure. Laboratory - Chemistry and C hemistry - challengeon 09-10-2021 Cobalamin (Vitamin B12) [Mass/Vol] 356 pg/mL 211-911 [facility] Work Phone: Laboratory - Drug toxicology on 09-10-2021 Amphetamines Ql (U) Negative [facility] Work Phone: [phone] Benzodiazepines Ql (U) Negative [facility] Work Phone: Cannabinoids Screen Ql (U) Negative [facility] Work Phone: Cocaine Ql (U) Negative [facility] Work Phone: Opiates Ql (U) Negative [facility] Work Phone: No Panel Informationon 09-10 MDMA (Ecstasy) Screen Negative [facility] Work Phone: [phone] Urine Barbiturates Screen Negative [facility] Work Phone: Urine Drug Screen Comment [facility] Work Phone: Comment on above: CONFIRMATORY TESTING FOR ALL POSITIVE URINE DRUG SCREENRESULTS WILL ONLY BE SENT OUT UPON PHYSICIAN ORDER. VISTA Urine Drug Screen methods provide only preliminaryanalytical test results. A more specific alternate chemicalmethod must be used in order to obtain a confirmedanalytical result. Gas chromatography/mass spectrometery(GC/MS) is the preferred confirmatory method. Clinicalconsideration and professional judgement should be appliedto any drug of abuse test result, particularly whenpreliminary positive results are used. URINE TCA TESTING MUST BE ORDERED SEPARATELY. USE TESTMNEMONIC: [facility] Urine Methadone Screen Negative [facility] Work Phone: Urine phencyclidine (PCP) de tectionon 09-10-2021 Phencyclidine Ql (U) Negative [facility] Work Phone: Basophil percentageon 2021 Cholesterol [Mass/Vol] 157 mg/dL <200 [facility] Work Phone: Comment on above: <200 mg/dL Desirable 200-240 mg/dL Borderline >240 mg/dL High Risk Triglyceride [Mass/Vol] 93 mg/dL [facility] Work Phone: Comment on above: The drugs N-Acetylcy steine and Metamizole may falsely depress this assay.Serum Triglycerides Reference Interval Normal <150 mg/dL Borderline high 150 - 199 mg/dL High 200 - 499 mg/dL Very High > or = 500 mg/dL Serum or plasma cholesterol in HDL measurement (mass/volume)on 09-09-2021 Cholesterol in HDL [Mass/Vol] 50 mg/dL [facility] Work Phone: Comment on above: The drugs N-Acetylcy steine and Metamizole may falsely depress this assay. Reference Range HDL <40 mg/dL Low HDL Cholesterol HDL >or= 60 mg/dL High HDL Cholesterol Serum or plasma cholesterol in VLDL measurement (mass/volume)on 09-09-2021 Cholesterol in VLDL [Mass/Vol] 19 mg/dL 5-40 [facility] Work Phone: [phone] Serum or plasma folate measu rement (mass/volume)on 09-09-2021 Folate [Mass/Vol] 12.10 ng/mL 3.1-55.4 [facility] Work Phone: [phone] Serum or plasma low density lipoprotein (LDL) cholesterol measurement (mass/volume)on 09-09-2021 Cholesterol in LDL [Mass/Vol] 88 mg/dL 0-130 [facility] Work Phone: [phone] Whole blood hemoglobin A1c/t otal hemoglobin ratio (mass fraction)on 09-09-2021 HbA1c (Bld) [Mass fraction] 5.7 % 3.8-5.6 [facility] Work Phone: Comment on above: Normal < 5.7 % Predi abetic 5.7 - 6.4 % Diabetic >or= 6.5 % Please note range changes. Laboratory - Chemistry and C hemistry - challengeon 09-08-2021 Free T4 [Mass/Vol] 0.98 ng/dL 0.76-1.46 [facility] Work Phone: No Panel Informationon 09-08 Free Triiodothyronine (T3) pg/dL 1.4 pg/mL 2.18-3.98 [facility] Work Phone: Absolute lymphocyte counton 09-07-2021 Lymphocytes Auto (Unsp spec) [#/Vol] 1.48 10*3/uL 0.83-4.51 [facility] Work Phone: Basophil percentageon 2021 Basophil percentage 0 SEEN /hpf [facility] Work Phone: Basophil percentage 3.5 mg/dL 2.5-4.9 [facility] Work Phone: Basophils/100 WBC (Bld) 1.6 % 0-1 [facility] Work Phone: Bilirubin [Mass/Vol] 0.40 mg/dL 0.20-1.00 [facility] Work Phone: Comment on above: For patients on eltr ombopag therapy, use of Dimension [place] TBIL is not recommended. Chloride [Moles/Vol] 101 mmol/L 98-107 [facility] Work Phone: Eosinophils/100 WBC (Bld) 3.5 % 0-5 [facility] Work Phone: Glucose [Mass/Vol] 95 mg/dL 74-106 [facility] Work Phone: Lactate [Moles/Vol] 0.8 mmol/L 0.4-2.0 [facility] Work Phone: Neutrophils (Bld) [#/Vol] 3.2 10*3/uL 2.0-7.7 [facility] Work Phone: Neutrophils/100 WBC (Bld) 57.8 % 47-70 [facility] Work Phone: [phone] Potassium [Moles/Vol] 4.0 mmol/L 3.5-5.1 [facility] Work Phone: [phone] Protein [Mass/Vol] 6.6 g/dL 6.4-8.2 [facility] Work Phone: [phone] Sodium [Moles/Vol] 137 mmol/L 136-145 [facility] Work Phone: [phone] WBC (Bld) [#/Vol] 5.5 10*3/uL 4.4-11.0 [facility] Work Phone: [phone] Bilirubin Test strip Ql (U)o n 09-07-2021 Bilirubin Ql (U) Negative Negative [facility] Work Phone: [phone] Blood erythrocytes count (nu mber/volume)on 09-07-2021 RBC (Bld) [#/Vol] 4.28 10*6/uL 4.2-5.4 [facility] Work Phone: Blood hemoglobin measurement (mass/volume)on 09-07-2021 Hemoglobin (Bld) [Mass/Vol] 12.0 g/dL 12.0-15.0 [facility] Work Phone: [phone] Blood lymphocytes/100 leukoc yteson 09-07-2021 Lymphocytes/100 WBC (Bld) 27.1 % 19-41 [facility] Work Phone: [phone] Blood monocytes/100 leukocyt eson 09-07-2021 Monocytes/100 WBC (Bld) 9.5 % 0-10 [facility] Work Phone: Blood platelet mean volumeon 09-07-2021 Platelet mean volume (Bld) [Entitic vol] 9.1 fL 6.2-12.0 [facility] Work Phone: Determination of erythrocyte mean corpuscular volume (MCV)on 09-07-2021 MCV (RBC) [Entitic vol] 90.7 fL 81-99 [facility] Work Phone: [phone] Glucose Glucometer (BldC) [M ass/Vol]on 09-07-2021 Glucose [Mass/Vol] 59 mg/dL 74-106 [facility] Work Phone: [phone] Comment on above: MANAGEMENT OF PATIEN T CARE PER NURSING PROTOCOL HCO3 (BldA) [Moles/Vol]on HCO3 (Bld) [Moles/Vol] 28 mmol/L 22-26 [facility] Work Phone: [phone] Hematocrit Auto (Bld) [Volum e fraction]on 09-07-2021 Hematocrit (Bld) [Volume fraction] 38.8 % 37-47 [facility] Work Phone: [phone] INR in Blood by Coagulation assayon 09-07-2021 INR Coag (Bld) [Relative time] 1.0 {INR} [facility] Work Phone: [phone] Ketones Test strip Ql (U)on 09-07-2021 Ketones Ql (U) Negative Negative [facility] Work Phone: [phone] Laboratory - Chemistry and C hemistry - challengeon 09-07-2021 CO2 [Moles/Vol] 30 mmol/L 23-33 [facility] Work Phone: [phone] [Catalytic activity/Vol] 164 U/L 45-117 [facility] Work Phone: [phone] ALT [Catalytic activity/Vol] 18 U/L 13-56 [facility] Work Phone: [phone] CO2 [Moles/Vol] 29.0 mmol/L 21.0-32.0 [facility] Work Phone: [phone] Globulin (S) [Mass/Vol] 3.5 g/dL 2.2-4.2 [facility] Work Phone: [phone] Urea nitrogen/Creatinine [Mass ratio] 28.3 mg/mg 10-20 [facility] Work Phone: Laboratory - Coagulationon 0 - aPTT Coag (Bld) [Time] 27.2 s 24.1-36.2 [facility] Work Phone: [phone] PT Coag (PPP) [Time] 13.1 s 11.7-14.9 [facility] Work Phone: [phone] Laboratory - Hematology and Cell countson 09-07-2021 Erythrocyte distribution width (RBC) [Entitic vol] 53.7 fL 35.1-43.9 [facility] Work Phone: [phone] Erythrocyte distribution width (RBC) [Ratio] 16.0 % 11.6-14.6 [facility] Work Phone: [phone] Immature granulocytes/100 WBC (Bld) 0.500 % 0.0-0.9 [facility] Work Phone: [phone] Comment on above: IG% - Immature Granu locytes (promyelocytes, myelocytes and metamyelocytes) > 1% indicates that a LEFT SHIFT is Present. MCH (RBC) [Entitic mass] 28.0 pg 27.0-32.0 [facility] Work Phone: Nucleated RBC/100 WBC (Bld) [Ratio] 0 % 0-5 [facility] Work Phone: [phone] MCHC Auto (RBC) [Mass/Vol]on 09-07-2021 MCHC (RBC) [Mass/Vol] 30.9 g/dL 32-36 [facility] Work Phone: [phone] Mucus LM Ql (Urine sed)on Mucus Ql (Urine sed) 0 SEEN /hpf [facility] Work Phone: [phone] Nitrite Test strip Ql (U)on 09-07-2021 Nitrite Ql (U) Negative Negative [facility] Work Phone: [phone] Panel Informationon 09-07 Troponin I High Sensitivity 7 pg/mL 3.0-54.0 [facility] Work Phone: [phone] Comment on above: Please Note: New Radha t Units and Gender Specific Reference Ranges. For more information see Policy Stat Procedure [place] High Sensitivity Troponin (TNIH) and attachments. Bed Mix Venous Bld PCO2 at Pat Temp 53.4 mmHg 41-51 [facility] Work Phone: [phone] Bld Gas Crit Called To/Read Back By Yes [facility] Work Phone: [phone] Blood Gas Notified Time 13:53:16 [facility] Work Phone: [phone] Blood Gas Notified Whom meza [facility] Work Phone: [phone] Blood Gas Specimen Type OSMANY [facility] Work Phone: [phone] Venous Blood Base Excess 3 mmol/L -1.0-3.5 [facility] Work Phone: [phone] Estimated Creatinine Clearance Calc 30.27 ml/min [facility] Work Phone: [phone] Estimated GFR (MDRD) Amer 79 mL/min >60 [facility] Work Phone: [phone] Comment on above: GFR Calc Estimated GFR (MDRD) Non-Af Amer 66 mL/min >60 [facility] Work Phone: [phone] Comment on above: Non- GFR Calc Thyroid Stimulating Hormone (TSH) 9.23 uIU/mL 0.358-3.74 [facility] Work Phone: PO2 venouson 09-07-2021 Oxygen (BldV) [Partial pressure] 16 mm[Hg] 25-40 [facility] Work Phone: [phone] Platelets bldon 09-07-2021 Platelets (Bld) [#/Vol] 424 10*3/uL 150-450 [facility] Work Phone: [phone] Protein Test strip Ql (U)on 09-07-2021 Protein Ql (U) Negative Negative [facility] Work Phone: [phone] Serum or plasma albumin gab urement (mass/volume)on 09-07-2021 Albumin [Mass/Vol] 3.1 g/dL 3.2-5.0 [facility] Work Phone: [phone] Serum or plasma albumin/glob ulin mass ratioon 09-07-2021 Albumin/Globulin [Mass ratio] 0.9 {ratio} 0.9-2.4 [facility] Work Phone: Serum or plasma calcium gab urement (mass/volume)on 09-07-2021 Calcium [Mass/Vol] 8.8 mg/dL 8.5-10.1 [facility] Work Phone: Serum or plasma creatinine m easurement (mass/volume)on 09-07-2021 Creatinine [Mass/Vol] 0.88 mg/dL 0.55-1.02 [facility] Work Phone: Comment on above: The validity of the calculated GFR & GFRAA in patients over 70 years has not been determined. Clinical correlation is essential. Serum or plasma urea nitroge n measurement (mass/volume)on 09-07-2021 Urea nitrogen [Mass/Vol] 25 mg/dL 7-18 [facility] Work Phone: Squamous epithelial cells de tection in urine sediment by light microscopyon 09-07-2021 Epithelial cells.squamous LM Ql (Urine sed) 0 SEEN /hpf [facility] Work Phone: Thin prep Papanicolaou smear with manual screeningon 09-07-2021 Thin prep Papanicolaou smear with manual screening 24 U/L 15-37 [facility] Work Phone: Thin prep Papanicolaou smear with manual screening 7 5-15 [facility] Work Phone: Urine blood detectionon 08-23 RBC Ql (U) Negative Negative [facility] Work Phone: RBC Ql (U) 0 SEEN /hpf [facility] Work Phone: [phone] Urine clarityon 09-07-2021 Clarity (U) Clear Clear [facility] Work Phone: Urine color determinationon 09-07-2021 Color (U) Straw Yellow [facility] Work Phone: Urine glucose detectionon Glucose Ql (U) Normal mg/dl Normal [facility] Work Phone: Urine leukocyte esterase det ection by dipstickon 09-07-2021 Leukocyte esterase Test strip Ql (U) Negative Negative [facility] Work Phone: Urine pHon 09-07-2021 pH (U) 6.0 [pH] [facility] Work Phone: Urine sediment bacteria coun t by microscopy (number/high power field)on 09-07-2021 Bacteria LM.HPF (Urine sed) [#/Area] 0 /[HPF] None Seen [facility] Work Phone: Urine specific gravity measu rementon 09-07-2021 Specific gravity (U) [Rel density] 1.010 [facility] Work Phone: Urobilinogen Auto test strip Ql (U)on 09-07-2021 Urobilinogen Ql (U) Normal mg/dl Normal [facility] Work Phone: Vital signson 09-07-2021 Oxygen saturation in Blood 19 % 50-70 [facility] Work Phone: pH measurementon 09-07-2021 pH (Unsp spec) 7.33 [pH] 7.32-7.42 [facility] Work Phone: Bilirubin Test strip Ql (U)o n 08-12-2021 Bilirubin Ql (U) Negative Negative [facility] Work Phone: Culture, urineon 08-12-2021 Bacteria identified Cx Nom (U) Enterobacter cloacae complex [facility] Work Phone: Ketones Test strip Ql (U)on 08-12-2021 Ketones Ql (U) Negative Negative [facility] Work Phone: Nitrite Test strip Ql (U)on 08-12-2021 Nitrite Ql (U) Negative Negative [facility] Work Phone: Protein Test strip Ql (U)on 08-12-2021 Protein Ql (U) 15 mg/dl Negative [facility] Work Phone: Urine blood detectionon 07-25 RBC Ql (U) 25 /ul Negative [facility] Work Phone: Urine clarityon 08-12-2021 Clarity (U) Cloudy Clear [facility] Work Phone: Urine color determinationon 08-12-2021 Color (U) Yellow Yellow [facility] Work Phone: Urine glucose detectionon Glucose Ql (U) Normal mg/dl Normal [facility] Work Phone: Urine leukocyte esterase det ection by dipstickon 08-12-2021 Leukocyte esterase Test strip Ql (U) 500 /ul Negative [facility] Work Phone: Urine pHon 08-12-2021 pH (U) 7.0 [pH] [facility] Work Phone: Urine specific gravity measu rementon 08-12-2021 Specific gravity (U) [Rel density] 1.010 [facility] Work Phone: Urobilinogen Auto test strip Ql (U)on 08-12-2021 Urobilinogen Ql (U) Normal mg/dl Normal [facility] Work Phone: Basic Metabolic Panelon 06-23 Calcium [Mass/Vol] 8.1 mg/dL Low 8.4-10.4 [facility] Comment on above: Performed By: #### H JOSSY BMP3 #### [facility] [address], [place] Anion gap [Moles/Vol] 0 mmol/L Low 3-13 [facility] Comment on above: Performed By: #### H JOSSY BMP3 #### [facility] [address], [place] CO2 [Moles/Vol] 29 mmol/L Normal 22-30 [facility] Comment on above: Performed By: #### H JOSSY BMP3 #### [facility] [address], [place] Creatinine [Mass/Vol] 0.66 mg/dL Normal 0.52-1.25 [facility] Comment on above: Performed By: #### H KELLY FENTON3 #### [facility] [address] [place] [address] GFR/1.73 sq M.predicted among blacks MDRD (S/P/Bld) [Vol rate/Area] mL/min/{1.73_m2} Normal >60 [facility] Comment on above: Performed By: #### H KELLY FENTON3 #### [facility] [address] [place] [address] GFR/1.73 sq M.predicted among non-blacks MDRD (S/P/Bld) [Vol rate/Area] 83.2 mL/min/{1.73_m2} Normal >60 [facility] Comment on above: Result Comment: KDIG O guidelines provide the following GFR categories: Stage GFR(ml/min/1.73 m2) Terms G1 >=90 Normal or high G2 60-89 Mildly decreased* G3a 45-59 Mildly to moderately decreased G3b 30-44 Moderately to severely decreased G4 15-29 Severely decreased G5 <15 Kidney failure *Relative to young adult level. In the absence of evidence of kidney damage, neither GFR category G1 nor G2 fulfill the criteria for CKD. The CKD-EPI equation is validated in individuals 18 years of age and older. Currently the best equation for estimating glomerular filtration rate (GFR) from serum creatinine in children is the Bedside Matamoros equation. It is less accurate in patients with extremes of muscle mass, restriction of dietary protein, ingestion of creatine, extra-renal metabolism of creatinine, or treatment with medications that affect renal tubular creatinine secretion. Performed By: #### H KELLY FENTON3 #### [facility] [address], [place] Glucose [Mass/Vol] 99 mg/dL Normal 70-100 [facility] Comment on above: Performed By: #### H KELLY FENTON3 #### [address] [address] [place], [place] Urea nitrogen [Mass/Vol] 27 mg/dL High 9-20 [facility] Comment on above: Performed By: #### H KELLY FENTON3 #### [address] [address] [place], [place] Chloride [Moles/Vol] 99 mmol/L Normal 98-107 [facility] Comment on above: Performed By: #### H KELLY FENTON3 #### [facility] [address] [place], [place] Potassium [Moles/Vol] 4.3 mmol/L Normal 3.5-5.1 [facility] Comment on above: Performed By: #### H KELLY FENTON3 #### [facility] [address] [place], [place] Sodium [Moles/Vol] 129 mmol/L Low 135-145 [facility] Comment on above: Performed By: #### H KELLY FENTON3 #### [facility] [address] [place], [place] Anion gap [Moles/Vol] 0 mmol/L Low 3 - 13 mmol/L [facility] Work Phone: Calcium [Mass/Vol] 8.1 mg/dL Low 8.4 - 10. 4 mg/dL [facility] Work Phone: Chloride [Moles/Vol] 99 mmol/L 98 - 10 7 mmol/L [facility] Work Phone: CO2 [Moles/Vol] 29 mmol/L 22 - 30 mmol/L [facility] Work Phone: Creatinine [Mass/Vol] 0.66 mg/dL 0.52 - 1.25 mg/dL [facility] Work Phone: EGFR IF NonAfrican [place] 83.2 mL/min >60 [facility] Work Phone: Comment on above: KDIGO guidelines pro vide the following GFR categories: Stage GFR(ml/min/1.73 m2) Terms G1 >=90 Normal or high G2 60-89 Mildly decreased* G3a 45-59 Mildly to moderately decreased G3b 30-44 Moderately to severely decreased G4 15-29 Severely decreased G5 <15 Kidney failure *Relative to young adult level. In the absence of evidence of kidney damage, neither GFR category G1 nor G2 fulfill the criteria for CKD. The CKD-EPI equation is validated in individuals 18 years of age and older. Currently the best equation for estimating glomerular filtration rate (GFR) from serum creatinine in children is the Bedside Matamoros equation. It is less accurate in patients with extremes of muscle mass, restriction of dietary protein, ingestion of creatine, extra-renal metabolism of creatinine, or treatment with medications that affect renal tubular creatinine secretion. GFR/1.73 sq M.predicted among blacks MDRD (S/P/Bld) [Vol rate/Area] mL/min/{1.73_m2} >60 mL/min [facility] Work Phone: Glucose [Mass/Vol] 99 mg/dL 70 - 100 mg/dL [facility] Work Phone: [phone] Interpretation and review of laboratory results Abnormal [facility] Work Phone: [phone] Potassium [Moles/Vol] 4.3 mmol/L 3.5 - 5.1 mmol/L [facility] Work Phone: [phone] Sodium [Moles/Vol] 129 mmol/L Low 135 - 145 mmol/L [facility] Work Phone: [phone] Urea nitrogen (BldV) [Mass/Vol] 27 mg/dL High 9 - 20 mg/dL [facility] Work Phone: Test Performed by [facility] [place] [facility], [address] [place] [id number] [place] [address] LAB [facility] Work Phone: Basic Metabolic Panelon 03-0 Calcium [Mass/Vol] 8.5 mg/dL Normal 8.4-10.4 [facility] Comment on above: Performed By: #### H KELLY FENTON3 #### [address] Glucose [Mass/Vol] 112 mg/dL High 70-100 [facility] Comment on above: Performed By: #### H KELLY FENTON3 #### [address] Urea nitrogen [Mass/Vol] 27 mg/dL High 9-20 [facility] Comment on above: Performed By: #### H JOSSY BMP3 #### [address] Anion gap [Moles/Vol] 2 mmol/L Low 3-13 [facility] Comment on above: Performed By: #### H EMDF, BMP3 #### [facility] [address], [place] CO2 [Moles/Vol] 31 mmol/L High 22-30 [facility] Comment on above: Performed By: #### H EMDF, BMP3 #### [address] [address] [place], [place] Creatinine [Mass/Vol] 0.85 mg/dL Normal 0.52-1.25 [facility] Comment on above: Performed By: #### H EMDF, BMP3 #### [address] [address] [place], [place] GFR/1.73 sq M.predicted among blacks MDRD (S/P/Bld) [Vol rate/Area] 74.8 mL/min/{1.73_m2} Normal >60 [facility] Comment on above: Performed By: #### H EMDF, BMP3 #### [facility] [address], [place] GFR/1.73 sq M.predicted among non-blacks MDRD (S/P/Bld) [Vol rate/Area] 64.6 mL/min/{1.73_m2} Normal >60 [facility] Comment on above: Result Comment: KDIG O guidelines provide the following GFR categories: Stage GFR(ml/min/1.73 m2) Terms G1 >=90 Normal or high G2 60-89 Mildly decreased* G3a 45-59 Mildly to moderately decreased G3b 30-44 Moderately to severely decreased G4 15-29 Severely decreased G5 <15 Kidney failure *Relative to young adult level. In the absence of evidence of kidney damage, neither GFR category G1 nor G2 fulfill the criteria for CKD. The CKD-EPI equation is validated in individuals 18 years of age and older. Currently the best equation for estimating glomerular filtration rate (GFR) from serum creatinine in children is the Bedside Matamoros equation. It is less accurate in patients with extremes of muscle mass, restriction of dietary protein, ingestion of creatine, extra-renal metabolism of creatinine, or treatment with medications that affect renal tubular creatinine secretion. Performed By: #### H EMDF, BMP3 #### [facility] [address] [place] [address] Potassium [Moles/Vol] 4.1 mmol/L Normal 3.5-5.1 [facility] Comment on above: Performed By: #### H JOSSY, BMP3 #### [facility] [address] [place] [address] Chloride [Moles/Vol] 95 mmol/L Low 98-107 [facility] Comment on above: Performed By: #### H JOSSY BMP3 #### [facility] [address] [place] [address] Sodium [Moles/Vol] 128 mmol/L Low 135-145 [facility] Comment on above: Performed By: #### H JOSSY BMP3 #### [facility] [address] [place] [address] Anion gap [Moles/Vol] 2 mmol/L Low 3 - 13 mmol/L [facility] Work Phone: Calcium [Mass/Vol] 8.5 mg/dL 8.4 - 10. 4 mg/dL [facility] Work Phone: Chloride [Moles/Vol] 95 mmol/L Low 98 - 10 7 mmol/L [facility] Work Phone: CO2 [Moles/Vol] 31 mmol/L High 22 - 30 mmol/L [facility] Work Phone: Creatinine [Mass/Vol] 0.85 mg/dL 0.52 - 1.25 mg/dL [facility] Work Phone: EGFR IF NonAfrican [place] 64.6 mL/min >60 [facility] Work Phone: Comment on above: KDIGO guidelines pro vide the following GFR categories: Stage GFR(ml/min/1.73 m2) Terms G1 >=90 Normal or high G2 60-89 Mildly decreased* G3a 45-59 Mildly to moderately decreased G3b 30-44 Moderately to severely decreased G4 15-29 Severely decreased G5 <15 Kidney failure *Relative to young adult level. In the absence of evidence of kidney damage, neither GFR category G1 nor G2 fulfill the criteria for CKD. The CKD-EPI equation is validated in individuals 18 years of age and older. Currently the best equation for estimating glomerular filtration rate (GFR) from serum creatinine in children is the Bedside Matamoros equation. It is less accurate in patients with extremes of muscle mass, restriction of dietary protein, ingestion of creatine, extra-renal metabolism of creatinine, or treatment with medications that affect renal tubular creatinine secretion. GFR/1.73 sq M.predicted among blacks MDRD (S/P/Bld) [Vol rate/Area] 74.8 mL/min/{1.73_m2} >60 [facility] Work Phone: [phone] Glucose [Mass/Vol] 112 mg/dL High 70 - 100 mg/dL [facility] Work Phone: [phone] Interpretation and review of laboratory results Abnormal [facility] Work Phone: [phone] Potassium [Moles/Vol] 4.1 mmol/L 3.5 - 5.1 mmol/L [facility] Work Phone: [phone] Sodium [Moles/Vol] 128 mmol/L Low 135 - 145 mmol/L [facility] Work Phone: [phone] Urea nitrogen (BldV) [Mass/Vol] 27 mg/dL High 9 - 20 mg/dL [facility] Work Phone: [phone] Test Performed by [address] [address] [facility] Work Phone: [phone] COVID-19, AntigenOrdered By: Dillon Parsons on 07-01-2021 SARS-CoV-2 Nucleocapsid Antigen Negative Negative [facility] Comment on above: A negative result does not rule out the possibility of SARS-CoV-2 infection. NAAT-based methods should be considered for symptomatic patients presenting greater than seven days after onset of symptoms. Method: Lateral flow immunoassay. Fact sheets for healthcare providers and patients can be found at the following sites: https://www.fda.gov/media/666649/download https://www.fda.gov/media/546451/download [facility] COVID-19, Antigenon 07-02-19 Test Performed by [id number] [place] [address] SARS-CoV-2 Antigenon 022 SARS-CoV-2 Antigen Negative Normal Negative [facility] Comment on above: Result Comment: A negative result does not rule out the possibility of SARS-CoV-2 infection. NAAT-based methods should be considered for symptomatic patients presenting greater than seven days after onset of symptoms. Method: Lateral flow immunoassay. Fact sheets for healthcare providers and patients can be found at the following sites: https://www.fda.gov/media/430464/download https://www.fda.gov/media/522833/download Performed By: #### H JOSSY BMP3 #### [facility] [address], [place] Basic Metabolic Panelon Calcium [Mass/Vol] 8.2 mg/dL Low 8.4-10.4 [facility] Comment on above: Performed By: #### H JOSSY BMP3 #### [address] [address] [place], [place] Glucose [Mass/Vol] 101 mg/dL High 70-100 [facility] Comment on above: Performed By: #### H ANDREWF, BMP3 #### [address] [address], [place] Urea nitrogen [Mass/Vol] 25 mg/dL High 9-20 [facility] Comment on above: Performed By: #### H ANDREWF, BMP3 #### [facility] [address], [place] Anion gap [Moles/Vol] 3 mmol/L Normal 3-13 [facility] Comment on above: Performed By: #### H EMDF, BMP3 #### [facility] [address], [place] CO2 [Moles/Vol] 25 mmol/L Normal 22-30 [facility] Comment on above: Performed By: #### H EMDF, BMP3 #### [facility] [address], [place] Creatinine [Mass/Vol] 0.67 mg/dL Normal 0.52-1.25 [facility] Comment on above: Performed By: #### H JOSSY BMP3 #### [facility] [address], [place] GFR/1.73 sq M.predicted among blacks MDRD (S/P/Bld) [Vol rate/Area] mL/min/{1.73_m2} Normal >60 [facility] Comment on above: Performed By: #### H JOSSY BMP3 #### [place] [address] [place], [place] GFR/1.73 sq M.predicted among non-blacks MDRD (S/P/Bld) [Vol rate/Area] 82.8 mL/min/{1.73_m2} Normal >60 [facility] Comment on above: Result Comment: KDIG O guidelines provide the following GFR categories: Stage GFR(ml/min/1.73 m2) Terms G1 >=90 Normal or high G2 60-89 Mildly decreased* G3a 45-59 Mildly to moderately decreased G3b 30-44 Moderately to severely decreased G4 15-29 Severely decreased G5 <15 Kidney failure *Relative to young adult level. In the absence of evidence of kidney damage, neither GFR category G1 nor G2 fulfill the criteria for CKD. The CKD-EPI equation is validated in individuals 18 years of age and older. Currently the best equation for estimating glomerular filtration rate (GFR) from serum creatinine in children is the Bedside Matamoros equation. It is less accurate in patients with extremes of muscle mass, restriction of dietary protein, ingestion of creatine, extra-renal metabolism of creatinine, or treatment with medications that affect renal tubular creatinine secretion. Performed By: #### H JOSSY BMP3 #### [address] Chloride [Moles/Vol] 103 mmol/L Normal 98-107 [facility] Comment on above: Performed By: #### H JOSSY BMP3 #### [address] Potassium [Moles/Vol] 4.4 mmol/L Normal 3.5-5.1 [facility] Comment on above: Performed By: #### H JOSSY BMP3 #### [address] Sodium [Moles/Vol] 132 mmol/L Low 135-145 [facility] [employer] [facility] Comment on above: Performed By: #### H [facility] #### [facility] [employer] [facility] [address] [place] [address] Anion gap [Moles/Vol] 3 mmol/L 3 - 13 mmol/L [facility] Work Phone: Calcium [Mass/Vol] 8.2 mg/dL Low 8.4 - 10. 4 mg/dL [facility] Work Phone: Chloride [Moles/Vol] 103 mmol/L 98 - 10 7 mmol/L [facility] Work Phone: CO2 [Moles/Vol] 25 mmol/L 22 - 30 mmol/L [facility] Work Phone: Creatinine [Mass/Vol] 0.67 mg/dL 0.52 - 1.25 mg/dL [facility] Work Phone: EGFR IF NonAfrican [place] 82.8 mL/min >60 [facility] Work Phone: Comment on above: KDIGO guidelines pro vide the following GFR categories: Stage GFR(ml/min/1.73 m2) Terms G1 >=90 Normal or high G2 60-89 Mildly decreased* G3a 45-59 Mildly to moderately decreased G3b 30-44 Moderately to severely decreased G4 15-29 Severely decreased G5 <15 Kidney failure *Relative to young adult level. In the absence of evidence of kidney damage, neither GFR category G1 nor G2 fulfill the criteria for CKD. The CKD-EPI equation is validated in individuals 18 years of age and older. Currently the best equation for estimating glomerular filtration rate (GFR) from serum creatinine in children is the Bedside Matamoros equation. It is less accurate in patients with extremes of muscle mass, restriction of dietary protein, ingestion of creatine, extra-renal metabolism of creatinine, or treatment with medications that affect renal tubular creatinine secretion. GFR/1.73 sq M.predicted among blacks MDRD (S/P/Bld) [Vol rate/Area] mL/min/{1.73_m2} >60 mL/min [facility] Work Phone: Glucose [Mass/Vol] 101 mg/dL High 70 - 100 mg/dL [facility] Work Phone: [phone] Interpretation and review of laboratory results Abnormal [facility] Work Phone: [phone] Potassium [Moles/Vol] 4.4 mmol/L 3.5 - 5.1 mmol/L [facility] Work Phone: [phone] Sodium [Moles/Vol] 132 mmol/L Low 135 - 145 mmol/L [facility] Work Phone: [phone] Urea nitrogen (BldV) [Mass/Vol] 25 mg/dL High 9 - 20 mg/dL [facility] Work Phone: [phone] Test Performed by [facility] [place] [facility], [address] [place] [address] [facility] Work Phone: [phone] Basic Metabolic Panelon 03-0 Calcium [Mass/Vol] 7.9 mg/dL Low 8.4-10.4 [facility] Comment on above: Performed By: #### B MP3 #### [address] [place] [address] Glucose [Mass/Vol] 86 mg/dL Normal 70-100 [facility] Comment on above: Performed By: #### B MP3 #### [address] [place] [address] Urea nitrogen [Mass/Vol] 22 mg/dL High 9-20 [facility] Comment on above: Performed By: #### B MP3 #### [address] [place] [address] Anion gap [Moles/Vol] 1 mmol/L Low 3-13 [facility] Comment on above: Performed By: #### B MP3 #### [address] [address] [place] [address] CO2 [Moles/Vol] 26 mmol/L Normal 22-30 [facility] Comment on above: Performed By: #### B MP3 #### [address] [place] [address] Creatinine [Mass/Vol] 0.77 mg/dL Normal 0.52-1.25 [facility] Comment on above: Performed By: #### B MP3 #### [address] [place] [address] GFR/1.73 sq M.predicted among blacks MDRD (S/P/Bld) [Vol rate/Area] 84.3 mL/min/{1.73_m2} Normal >60 [facility] Comment on above: Performed By: #### B MP3 #### [address] [place] [address] GFR/1.73 sq M.predicted among non-blacks MDRD (S/P/Bld) [Vol rate/Area] 72.8 mL/min/{1.73_m2} Normal >60 [facility] Comment on above: Result Comment: KDIG O guidelines provide the following GFR categories: Stage GFR(ml/min/1.73 m2) Terms G1 >=90 Normal or high G2 60-89 Mildly decreased* G3a 45-59 Mildly to moderately decreased G3b 30-44 Moderately to severely decreased G4 15-29 Severely decreased G5 <15 Kidney failure *Relative to young adult level. In the absence of evidence of kidney damage, neither GFR category G1 nor G2 fulfill the criteria for CKD. The CKD-EPI equation is validated in individuals 18 years of age and older. Currently the best equation for estimating glomerular filtration rate (GFR) from serum creatinine in children is the Bedside Matamoros equation. It is less accurate in patients with extremes of muscle mass, restriction of dietary protein, ingestion of creatine, extra-renal metabolism of creatinine, or treatment with medications that affect renal tubular creatinine secretion. Performed By: #### B MP3 #### [facility] [address] [place], [place] Chloride [Moles/Vol] 102 mmol/L Normal 98-107 [facility] Comment on above: Performed By: #### B MP3 #### [address] Potassium [Moles/Vol] 4.2 mmol/L Normal 3.5-5.1 [facility] Comment on above: Performed By: #### B MP3 #### [address] [place] [address] Sodium [Moles/Vol] 128 mmol/L Low 135-145 [facility] Comment on above: Performed By: #### B MP3 #### [facility] [address] [place] [address] Anion gap [Moles/Vol] 1 mmol/L Low 3 - 13 mmol/L [employer] Work Phone: Calcium [Mass/Vol] 7.9 mg/dL Low 8.4 - 10. 4 mg/dL [facility] Work Phone: Chloride [Moles/Vol] 102 mmol/L 98 - 10 7 mmol/L [facility] Work Phone: CO2 [Moles/Vol] 26 mmol/L 22 - 30 mmol/L [facility] Work Phone: Creatinine [Mass/Vol] 0.77 mg/dL 0.52 - 1.25 mg/dL [employer] Work Phone: EGFR IF NonAfrican [place] 72.8 mL/min >60 [facility] Work Phone: Comment on above: KDIGO guidelines pro vide the following GFR categories: Stage GFR(ml/min/1.73 m2) Terms G1 >=90 Normal or high G2 60-89 Mildly decreased* G3a 45-59 Mildly to moderately decreased G3b 30-44 Moderately to severely decreased G4 15-29 Severely decreased G5 <15 Kidney failure *Relative to young adult level. In the absence of evidence of kidney damage, neither GFR category G1 nor G2 fulfill the criteria for CKD. The CKD-EPI equation is validated in individuals 18 years of age and older. Currently the best equation for estimating glomerular filtration rate (GFR) from serum creatinine in children is the Bedside Matamoros equation. It is less accurate in patients with extremes of muscle mass, restriction of dietary protein, ingestion of creatine, extra-renal metabolism of creatinine, or treatment with medications that affect renal tubular creatinine secretion. GFR/1.73 sq M.predicted among blacks MDRD (S/P/Bld) [Vol rate/Area] 84.3 mL/min/{1.73_m2} >60 [facility] Work Phone: Glucose [Mass/Vol] 86 mg/dL 70 - 100 mg/dL [facility] Work Phone: Interpretation and review of laboratory results Abnormal [facility] Work Phone: [phone] Potassium [Moles/Vol] 4.2 mmol/L 3.5 - 5.1 mmol/L [facility] Work Phone: [phone] Sodium [Moles/Vol] 128 mmol/L Low 135 - 145 mmol/L [facility] Work Phone: [phone] Urea nitrogen (BldV) [Mass/Vol] 22 mg/dL High 9 - 20 mg/dL [facility] Work Phone: [phone] Test Performed by [facility], [address] [place] [address] [facility] Work Phone: [phone] Basic Metabolic Panelon 03-0 Anion gap [Moles/Vol] 5 mmol/L Normal 3-13 [facility] Comment on above: Performed By: #### H EMDF BMP3 #### [address] [address] [place] [address] Calcium [Mass/Vol] 8.0 mg/dL Low 8.4-10.4 [facility] Comment on above: Performed By: #### H EMDF BMP3 #### [address] [address] [place] [address] CO2 [Moles/Vol] 22 mmol/L Normal 22-30 [facility] Comment on above: Performed By: #### H EMDF BMP3 #### [address] [address] [place] [address] Glucose [Mass/Vol] 80 mg/dL Normal 70-100 [facility] Comment on above: Performed By: #### H EMDF, BMP3 #### [address] [place] [address] Urea nitrogen [Mass/Vol] 30 mg/dL High 9-20 [facility] Comment on above: Performed By: #### H EMDF, BMP3 #### [address] [address] Creatinine [Mass/Vol] 0.69 mg/dL Normal 0.52-1.25 [facility] Comment on above: Performed By: #### H JOSSY BMP3 #### [address] [place] [address] GFR/1.73 sq M.predicted among blacks MDRD (S/P/Bld) [Vol rate/Area] mL/min/{1.73_m2} Normal >60 [facility] Comment on above: Performed By: #### H JOSSY BMP3 #### [address] [place] [address] GFR/1.73 sq M.predicted among non-blacks MDRD (S/P/Bld) [Vol rate/Area] 82.0 mL/min/{1.73_m2} Normal >60 [facility] Comment on above: Result Comment: KDIG O guidelines provide the following GFR categories: Stage GFR(ml/min/1.73 m2) Terms G1 >=90 Normal or high G2 60-89 Mildly decreased* G3a 45-59 Mildly to moderately decreased G3b 30-44 Moderately to severely decreased G4 15-29 Severely decreased G5 <15 Kidney failure *Relative to young adult level. In the absence of evidence of kidney damage, neither GFR category G1 nor G2 fulfill the criteria for CKD. The CKD-EPI equation is validated in individuals 18 years of age and older. Currently the best equation for estimating glomerular filtration rate (GFR) from serum creatinine in children is the Bedside Matamoros equation. It is less accurate in patients with extremes of muscle mass, restriction of dietary protein, ingestion of creatine, extra-renal metabolism of creatinine, or treatment with medications that affect renal tubular creatinine secretion. Performed By: #### H JOSSY BMP3 #### [address] [address] Chloride [Moles/Vol] 105 mmol/L Normal 98-107 [facility] Comment on above: Performed By: #### H JOSSY BMP3 #### [facility] [address] [place] [address] Potassium [Moles/Vol] 4.0 mmol/L Normal 3.5-5.1 [facility] Comment on above: Performed By: #### H JOSSY BMP3 #### [address] [place] [address] Sodium [Moles/Vol] 132 mmol/L Low 135-145 [facility] Comment on above: Performed By: #### H BETH FENTON #### [address] [address] Anion gap [Moles/Vol] 5 mmol/L 3 - 13 mmol/L [facility] Work Phone: Calcium [Mass/Vol] 8.0 mg/dL Low 8.4 - 10. 4 mg/dL [facility] Work Phone: Chloride [Moles/Vol] 105 mmol/L 98 - 10 7 mmol/L [facility] Work Phone: CO2 [Moles/Vol] 22 mmol/L 22 - 30 mmol/L [facility] Work Phone: Creatinine [Mass/Vol] 0.69 mg/dL 0.52 - 1.25 mg/dL [facility] Work Phone: EGFR IF NonAfrican [place] 82.0 mL/min >60 [facility] Work Phone: Comment on above: KDIGO guidelines pro vide the following GFR categories: Stage GFR(ml/min/1.73 m2) Terms G1 >=90 Normal or high G2 60-89 Mildly decreased* G3a 45-59 Mildly to moderately decreased G3b 30-44 Moderately to severely decreased G4 15-29 Severely decreased G5 <15 Kidney failure *Relative to young adult level. In the absence of evidence of kidney damage, neither GFR category G1 nor G2 fulfill the criteria for CKD. The CKD-EPI equation is validated in individuals 18 years of age and older. Currently the best equation for estimating glomerular filtration rate (GFR) from serum creatinine in children is the Bedside Matamoros equation. It is less accurate in patients with extremes of muscle mass, restriction of dietary protein, ingestion of creatine, extra-renal metabolism of creatinine, or treatment with medications that affect renal tubular creatinine secretion. GFR/1.73 sq M.predicted among blacks MDRD (S/P/Bld) [Vol rate/Area] mL/min/{1.73_m2} >60 mL/min [facility] Work Phone: Glucose [Mass/Vol] 80 mg/dL 70 - 100 mg/dL [facility] Work Phone: Interpretation and review of laboratory results Abnormal [facility] Work Phone: Potassium [Moles/Vol] 4.0 mmol/L 3.5 - 5.1 mmol/L [facility] Work Phone: [phone] Sodium [Moles/Vol] 132 mmol/L Low 135 - 145 mmol/L [facility] Work Phone: [phone] Urea nitrogen (BldV) [Mass/Vol] 30 mg/dL High 9 - 20 mg/dL [facility] Work Phone: [phone] Test Performed by [facility] [place] [facility], [address] [place] [phone] [place] [address] LAB [facility] Work Phone: Basic Metabolic Panelon 03-0 Anion gap [Moles/Vol] 2 mmol/L Low 3-13 [facility] Comment on above: Performed By: #### H CHEYENNE PT, CMP3M #### [address] [address] Calcium [Mass/Vol] 8.1 mg/dL Low 8.4-10.4 [facility] Comment on above: Performed By: #### H CHEYENNE PT, CMP3M #### [address] [address] CO2 [Moles/Vol] 27 mmol/L Normal 22-30 [facility] Comment on above: Performed By: #### H EMOG PT, CMP3M #### [address] [address] Glucose [Mass/Vol] 94 mg/dL Normal 70-100 [facility] Comment on above: Performed By: #### H EMOG PT, CMP3M #### [address] [address] Urea nitrogen [Mass/Vol] 26 mg/dL High 9-20 [facility] Comment on above: Performed By: #### H EMOTej PT, CMP3M #### [address] [place] Creatinine [Mass/Vol] 0.67 mg/dL Normal 0.52-1.25 [facility] Comment on above: Performed By: #### H DICK QUINN CMP3M #### [address] GFR/1.73 sq M.predicted among blacks MDRD (S/P/Bld) [Vol rate/Area] mL/min/{1.73_m2} Normal >60 [facility] Comment on above: Performed By: #### H DICK QUINN CMP3M #### [address] GFR/1.73 sq M.predicted among non-blacks MDRD (S/P/Bld) [Vol rate/Area] 82.8 mL/min/{1.73_m2} Normal >60 [facility] Comment on above: Result Comment: KDIG O guidelines provide the following GFR categories: Stage GFR(ml/min/1.73 m2) Terms G1 >=90 Normal or high G2 60-89 Mildly decreased* G3a 45-59 Mildly to moderately decreased G3b 30-44 Moderately to severely decreased G4 15-29 Severely decreased G5 <15 Kidney failure *Relative to young adult level. In the absence of evidence of kidney damage, neither GFR category G1 nor G2 fulfill the criteria for CKD. The CKD-EPI equation is validated in individuals 18 years of age and older. Currently the best equation for estimating glomerular filtration rate (GFR) from serum creatinine in children is the Bedside Matamoros equation. It is less accurate in patients with extremes of muscle mass, restriction of dietary protein, ingestion of creatine, extra-renal metabolism of creatinine, or treatment with medications that affect renal tubular creatinine secretion. Performed By: #### H DICK QUINN CMP3M #### [address] Chloride [Moles/Vol] 101 mmol/L Normal 98-107 [facility] Comment on above: Performed By: #### H DICK QUINN CMP3M #### [address] Potassium [Moles/Vol] 3.5 mmol/L Normal 3.5-5.1 [facility] Comment on above: Performed By: #### H DICK QUINN CMP3M #### [facility] [address] [place] [address] Sodium [Moles/Vol] 130 mmol/L Low 135-145 [facility] Comment on above: Performed By: #### H DICK QUINN, CMP3M #### [facility] [address] [place] [address] Anion gap [Moles/Vol] 2 mmol/L Low 3 - 13 mmol/L [facility] Work Phone: Calcium [Mass/Vol] 8.1 mg/dL Low 8.4 - 10. 4 mg/dL [facility] Work Phone: Chloride [Moles/Vol] 101 mmol/L 98 - 10 7 mmol/L [facility] Work Phone: CO2 [Moles/Vol] 27 mmol/L 22 - 30 mmol/L [facility] Work Phone: Creatinine [Mass/Vol] 0.67 mg/dL 0.52 - 1.25 mg/dL [facility] Work Phone: EGFR IF NonAfrican [place] 82.8 mL/min >60 [facility] Work Phone: Comment on above: KDIGO guidelines pro vide the following GFR categories: Stage GFR(ml/min/1.73 m2) Terms G1 >=90 Normal or high G2 60-89 Mildly decreased* G3a 45-59 Mildly to moderately decreased G3b 30-44 Moderately to severely decreased G4 15-29 Severely decreased G5 <15 Kidney failure *Relative to young adult level. In the absence of evidence of kidney damage, neither GFR category G1 nor G2 fulfill the criteria for CKD. The CKD-EPI equation is validated in individuals 18 years of age and older. Currently the best equation for estimating glomerular filtration rate (GFR) from serum creatinine in children is the Bedside Matamoros equation. It is less accurate in patients with extremes of muscle mass, restriction of dietary protein, ingestion of creatine, extra-renal metabolism of creatinine, or treatment with medications that affect renal tubular creatinine secretion. GFR/1.73 sq M.predicted among blacks MDRD (S/P/Bld) [Vol rate/Area] mL/min/{1.73_m2} >60 mL/min [facility] Work Phone: Glucose [Mass/Vol] 94 mg/dL 70 - 100 mg/dL [facility] Work Phone: Interpretation and review of laboratory results Abnormal [facility] Work Phone: [phone] Potassium [Moles/Vol] 3.5 mmol/L 3.5 - 5.1 mmol/L [facility] Work Phone: [phone] Sodium [Moles/Vol] 130 mmol/L Low 135 - 145 mmol/L [facility] Work Phone: [phone] Urea nitrogen (BldV) [Mass/Vol] 26 mg/dL High 9 - 20 mg/dL [facility] Work Phone: Test Performed by [facility] [place] [facility], [address] [place] [phone] [place] [address] [facility] Work Phone: CBCon 06-27-2021 Hematocrit (Bld) [Volume fraction] 26.0 % Low 35.0 - 47.0 % [facility] Hemoglobin.gastrointe stinal spec 1 Ql (Stl) 8.4 g/dL Low 11.7 - 16.0 g/dL [facility] Interpretation and review of laboratory results Abnormal [facility] MCH (RBC) [Entitic mass] 31.1 pg 26.0 - 34.0 pg [facility] MCHC (RBC) [Mass/Vol] 32.4 % 32.0 - 36.0 % [facility] MCV (RBC) [Entitic vol] 96.1 fL 79.0 - 98.0 fL [facility] Platelet distribution width (Bld) [Ratio] 20.5 % High 11.5 - 14.5 % [facility] Platelet mean volume (Bld) [Entitic vol] 6.5 fL Low 7.4 - 10.4 fL [facility] Platelets (Bld) [#/Vol] 673 10*3/uL High 140 - 440 10*3/uL [facility] RBC (Bld) [#/Vol] 2.70 10*6/uL Low 3.80 - 5.2 0 10*6/uL [facility] WBC (Bld) [#/Vol] 7.4 10*3/uL 3.6 - 10.7 10*3/uL [facility] Test Performed by [facility] [place] [facility], [address] [place] [address] [facility] Fibrinogenon 06-27-2021 Fibrinogen 368 mg/dL Normal 200-400 [facility] Comment on above: Performed By: #### H EMDF BMP3 #### [address] [address] Fibrinogen 368 mg/dL 200 - 400 mg/dL [facility] Hemogramon 06-27-2021 Erythrocyte distribution width (RBC) [Ratio] 20.5 % High 11.5-14.5 [facility] Comment on above: Performed By: #### H EMDOswaldo BMP3 #### [address] [address] Hematocrit (Bld) [Volume fraction] 26.0 % Low 35.0-47.0 [facility] Comment on above: Performed By: #### H EMDOswaldo BMP3 #### [address] [address] Hemoglobin (Bld) [Mass/Vol] 8.4 g/dL Low 11.7-16.0 [facility] Comment on above: Performed By: #### H EMDF, BMP3 #### [address] [place] [address] MCH (RBC) [Entitic mass] 31.1 pg Normal 26.0-34.0 [facility] Comment on above: Performed By: #### H EMDF, BMP3 #### [address] [place] [address] MCHC 32.4 % Normal 32.0-36.0 [facility] Comment on above: Performed By: #### H EMDF, BMP3 #### [address] [address] MCV (RBC) [Entitic vol] 96.1 fL Normal 79.0-98.0 [facility] Comment on above: Performed By: #### H EMDF, BMP3 #### [address] [place] Platelet mean volume (Bld) [Entitic vol] 6.5 fL Low 7.4-10.4 [facility] Comment on above: Performed By: #### H EMDF, BMP3 #### [address] [place], [place] Platelets (Bld) [#/Vol] 673 10*3/uL High 140-440 [facility] Comment on above: Performed By: #### H EMDF, BMP3 #### [address] RBC (Bld) [#/Vol] 2.70 10*6/uL Low 3.80-5.20 [facility] Comment on above: Performed By: #### H JOSSY, BMP3 #### [address] WBC (Bld) [#/Vol] 7.4 10*3/uL Normal 3.6-10.7 [facility] Comment on above: Performed By: #### H EMDF, BMP3 #### [address] No Panel Informationon 06-27 Test Performed by [facility] [place] [facility], [address] [place] [phone] [place] [address] LAB [facility] PROTIME/INR & PTTon 06-28-19 22 aPTT Coag (Bld) [Time] 27.6 s 20.0 - 30.5 s [facility] Comment on above: NOTE: The therapeuti c time for Heparin anticoagulation, based on Xa activity inhibition, is an APTT of 46-80 seconds. INR Coag (Bld) [Relative time] 1.1 {INR} [facility] Comment on above: Recommended Anticoag ulant Therapy: SEE BELOW ----- INR of 2.0 - 3.0 : - Prophylaxis of Venous Thrombosis (high-risk surgery) - Treatment of Venous Thrombosis - Treatment of Pulmonary Embolism (Includes tissue heart valves, Acute Myocardial Infarction to prevent systemic embolism, Valvular Heart Disease, and Atrial Fibrillation) ----- INR of 2.5 - 3.5 : - Mechanical Prosthetic Valves (high risk) - If oral anticoagulant therapy is used to prevent Myocardial Infarction PT Coag (PPP) [Time] 11.3 s 9.0 - 1 2.0 s [facility] Comment on above: . Protime AND APTTon aPTT Coag (Bld) [Time] 27.6 s Normal 20.0-30.5 [facility] Comment on above: Result Comment: NOTE : The therapeutic time for Heparin anticoagulation, based on Xa activity inhibition, is an APTT of 46-80 seconds. Performed By: #### H KELLY FENTON3 #### [address] [address] INR 1.1 Normal 0.9-1.1 [facility] Comment on above: Result Comment: Terrance mmended Anticoagulant Therapy: SEE BELOW ----- INR of 2.0 - 3.0 : - Prophylaxis of Venous Thrombosis (high-risk surgery) - Treatment of Venous Thrombosis - Treatment of Pulmonary Embolism (Includes tissue heart valves, Acute Myocardial Infarction to prevent systemic embolism, Valvular Heart Disease, and Atrial Fibrillation) ----- INR of 2.5 - 3.5 : - Mechanical Prosthetic Valves (high risk) - If oral anticoagulant therapy is used to prevent Myocardial Infarction Performed By: #### H KELLY FENTON3 #### [address] PT Coag (PPP) [Time] 11.3 s Normal 9.0-12.0 [facility] Comment on above: Result Comment: . Performed By: #### H KELLY FENTON3 #### [address] [id number] ANTIBODY IDENTIFICATIONon Antibody ID POS, ANTI C POS, ANTI D [facility] Test Performed by [address] Antibody Identificationon Antibody Identification Antibody Identification: POS, ANTI C POS, ANTI D Normal [facility] Comment on above: Performed By: #### H EMOG, PT, CMP3M #### [place] [id number] CR Chest 1 View Frontalon CR Chest 1 View Frontal Patient Name: DEBRA COLE Diagnostic Radiology ACCESSION EXAM DATE/TIME PROCEDURE ORDERING PROVIDER [id number] 06/26/2021 10:07 EST CR Chest 1 View Frontal [id number] [place] CPT code 18506 Reason For Exam (CR Chest 1 View Frontal) Pre op Report CHEST: CLINICAL INDICATION: Preoperative evaluation TECHNIQUE: AP portable chest COMPARISON: none FINDINGS: Support devices: EKG leads The heart demonstrates normal size. Calcification of the thoracic aorta is noted. No obvious consolidation or pulmonary edema. Probable left basilar atelectasis but evaluation of the lungs is somewhat limited due to breast implant capsular calcifications. There are coarse interstitial markings likely related to chronic pulmonary disease. There is no sizable pleural effusion. The osseous structures are unremarkable. IMPRESSION: Interstitial changes in the lungs, likely chronic. Possible left basilar atelectasis. Limited study as above. Report Dictated on Final Dictated: 06/26/2021 10:11 am Dictating Physician: MD KOLB NICHOLAS Signed Date and Time: 06/26/2021 10:12 am Signed by: MD KOLB NICHOLAS Transcribed Date and Time: 06/26/2021 10:11 Normal [facility] CR Femur 2+ Views Lefton CR Femur 2+ Views Left Patient Name: DEBRA COLE Diagnostic Radiology ACCESSION EXAM DATE/TIME PROCEDURE ORDERING PROVIDER [id number] 06/26/2021 09:28 EST CR Femur 2+ Views Left n [id number] POLY KEVIN CPT code 16137 Reason For Exam (CR Femur 2+ Views Left n) Hip dislocation Report LEFT FEMUR CLINICAL INDICATION: Dislocation TECHNIQUE: AP and lateral COMPARISON: Hip radiograph from earlier today FINDINGS: Redemonstration of postsurgical changes in the left femur. Surgical shama are present. Redemonstration of superior displacement of the left femoral head prosthesis extending above the left acetabulum. Left acetabular fracture again present. Report Dictated on Final Dictated: 06/26/2021 9:28 am Dictating Physician: MD KOLB NICHOLAS Signed Date and Time: 06/26/2021 9:29 am Signed by: MD KOLB NICHOLAS Transcribed Date and Time: 06/26/2021 9:28 Normal [facility] CR Hip w/ Pelvis 2 or 3 View s Lefton 06-26-2021 CR Hip w/ Pelvis 2 or 3 Views Left Patient Name: DEBRA COLE Diagnostic Radiology ACCESSION EXAM DATE/TIME PROCEDURE ORDERING PROVIDER [id number] 06/26/2021 09:28 EST CR Hip w/ Pelvis 2 or 3 [id number] POLY KEVIN Views Left n CPT code 34464 Reason For Exam (CR Hip w/ Pelvis 2 or 3 Views Left n) hip reduction Report PELVIS AND LEFT HIP: CLINICAL INDICATION: Left hip reduction. TECHNIQUE: AP pelvis plus AP and lateral views of the left hip COMPARISON: Radiograph from earlier today FINDINGS: Redemonstration of postsurgical changes in the left hip. A superior left hip dislocation is again seen. A left acetabular fracture is again seen. Report Dictated on Final Dictated: 06/26/2021 10:10 am Dictating Physician: MD KOLB NICHOLAS Signed Date and Time: 06/26/2021 10:11 am Signed by: MD KOLB NICHOLAS Transcribed Date and Time: 06/26/2021 10:10 Normal [facility] CR Hip w/ Pelvis 2 or 3 Views Left Patient Name: DEBRA COLE Diagnostic Radiology ACCESSION EXAM DATE/TIME PROCEDURE ORDERING PROVIDER [id number] 06/26/2021 06:28 EST CR Hip w/ Pelvis 2 or 3 [id number] DIANNA, Views Left n DEANNE CPT code 62188 Reason For Exam (CR Hip w/ Pelvis 2 or 3 Views Left n) dislocation Report LEFT HIP: CLINICAL INDICATION: Left hip pain. 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 TECHNIQUE: AP Pelvis, AP and frog leg lateral views of the left hip were obtained. COMPARISON: 06/15/2021. FINDINGS: Left femoral head prosthesis is superiorly displaced and is positioned lateral to the left iliac wing. There is no loosening of the femoral stem. There are multiple displaced bone fragments in the left hip joint, likely arising from the left acetabulum. Left femoral head and stem prosthesis is maintained by cerclage wire along the proximal left femur. There is no evidence for fracture or dislocation. Normal bone density is demineralized. No other bony or soft tissue abnormality is identified. Esparza catheter balloon overlies the urinary bladder. Mild aortoiliac vascular calcifications. IMPRESSION: Acute, prosthetic left hip dislocation. Left acetabular fracture with displaced bone fragments. Diffuse osteopenia. Report Dictated on Final Dictated: 06/26/2021 6:56 am Dictating Physician: SUMIT TERRY DO, I Signed Date and Time: 06/26/2021 7:01 am Signed by: SUMIT TERRY DO, I Transcribed Date and Time: 06/26/2021 6:56 Normal [facility] Complete Urinalysison 2021 Appearance (U) Ex.Turbid Abnormal Clear [facility] Comment on above: Result Comment: . Performed By: #### H EMDF BMP3 #### [place] [address] [address] [place], [place] Bacteria Moderate Abnormal Negative [facility] Comment on above: Result Comment: . Performed By: #### H EMDF, BMP3 #### [facility] [address] [place], [place] Bilirubin,Urine Negative Normal Negative [facility] Comment on above: Result Comment: . Performed By: #### H EMDF, BMP3 #### [facility] [address] [place], [place] Color (U) Yellow Normal Lt. Yellow [facility] Comment on above: Result Comment: . Performed By: #### H EMDF, BMP3 #### [facility] [address] [place], [place] Glucose Ql (U) Normal Normal Normal (<70) [facility] Comment on above: Result Comment: . Performed By: #### H EMDF, BMP3 #### [facility] [address] [place], [place] Ketone,Urine Negative Normal Negative [facility] Comment on above: Result Comment: . Performed By: #### H EMDF, BMP3 #### [facility] [address] [place], [place] Leukocytes,Urine 500 Matt/uL Abnormal Negative [facility] Comment on above: Result Comment: . Performed By: #### H EMDF, BMP3 #### [facility] [address] [place], [place] Nitrites,Urine Positive Abnormal Negative [facility] Comment on above: Result Comment: . Performed By: #### H EMDF BMP3 #### [place] [address] [address] [place], [place] Occult Blood,Urine 0.2 mg/dL Abnormal Negative [facility] Comment on above: Result Comment: . Performed By: #### H EMDF BMP3 #### [place] [address] [address] [place], [place] pH,Urine 7.0 Normal 5.0-8.0 [facility] Comment on above: Result Comment: . Performed By: #### H EMDF BMP3 #### [place] [address] [address] [place], [place] Protein (U) [Mass/Vol] 50 mg/dL Abnormal Negative [facility] Comment on above: Result Comment: . Performed By: #### H EMDF BMP3 #### [place] [address] [address] [place], [place] RBC, Urine 11 - 25 Abnormal 0-2 [facility] Comment on above: Result Comment: . Performed By: #### H EMDF, BMP3 #### [place] [address] [address] [place], [place] Specific [place],Urine 1.012 Normal 1.005 - 1.030 [facility] Comment on above: Result Comment: . Performed By: #### H EMDF, BMP3 #### [place] [address] [address] [place], [place] Squamous Epithelial 3 - 5 Normal 3-5 [facility] Comment on above: Result Comment: . Performed By: #### H EMDF, BMP3 #### [facility] [address] [place], [place] Urobilinogen,Urine Normal Normal Normal (0-1) [facility] Comment on above: Result Comment: . Performed By: #### H EMDF, BMP3 #### [facility] [address] [place], [place] WBC LM.HPF (Urine sed) [#/Area] /[HPF] Abnormal 0-5 [facility] Comment on above: Result Comment: . Performed By: #### H EMDF, BMP3 #### [facility] [address] [place], [place] White Blood Cell Clump Moderate Abnormal Negative [facility] Comment on above: Result Comment: . Performed By: #### H EMDF, BMP3 #### [facility] [address] [place], [place] ED Provider Noteon ED Provider Note Emergency Department Encounter Location: [facility] EMERGENCY DEPT Patient: Debra Cole : 1940 Date of evaluation: 06/26/2021 ED Provider: Sumit Monroe MD 07:00a.m. Debra Cole was checked out to me by Dr Dr Elizabeth. Please see his/her initial documentation for details of the patient's initial ED presentation, physical exam and completed studies. In brief, Debra Cole is a 81 y.o. female that presented to the emergency department presents from the [facility] who had her hip replaced here on June 08 at [facility] has had 1 prior dislocation now fell and has another dislocation with possible acetabular fracture I have reviewed and interpreted all of the currently available lab results and diagnostics from this visit: No results found for this visit on 06/26/21. XR HIP LEFT (2-3 VIEWS) Result Date: 06/26/2021 Patient Name: DEBRA COLE Diagnostic Radiology ACCESSION EXAM DATE/TIME PROCEDURE ORDERING PROVIDER [id number] 06/26/2021 06:28 EST CR Hip w/ Pelvis 2 or 3 [id number] -GLENN, Views Left n DEANNE CPT code 35048 Reason For Exam (CR Hip w/ Pelvis 2 or 3 Views Left n) dislocation Report LEFT HIP: CLINICAL INDICATION: Left hip pain. 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 TECHNIQUE: AP Pelvis, AP and frog leg lateral views of the left hip were obtained. COMPARISON: 06/15/2021. FINDINGS: Left femoral head prosthesis is superiorly displaced and is positioned lateral to the left iliac wing. There is no loosening of the femoral stem. There are multiple displaced bone fragments in the left hip joint, likely arising from the left acetabulum. Left femoral head and stem prosthesis is maintained by cerclage wire along the proximal left femur. There is no evidence for fracture or dislocation. Normal bone density is demineralized. No other bony or soft tissue abnormality is identified. Esparza catheter balloon overlies the urinary bladder. Mild aortoiliac vascular calcifications. IMPRESSION: Acute, prosthetic left hip dislocation. Left acetabular fracture with displaced bone fragments. Diffuse osteopenia. Report Dictated on --- Final --- Dictated: 06/26/2021 6:56 am Dictating Physician: SUMIT TERRY DO, I Signed Date and Time: 06/26/2021 7:01 am Signed by: SUMIT TERRY DO, I Transcribed Date and Time: 06/26/2021 6:56 Final ED Course and MDM: In brief, Debra Cole is a 81 y.o. female whose care was signed out to me by the outgoing provider. In brief, patient with recent left hip replacement who has fallen now has a acute prosthetic left hip dislocation with left acetabular fracture with displaced bone fragments. We are awaiting orthopedic surgery to evaluate the patient ED Medication Orders (From admission, onward) None Final Impression 1. Dislocation of left hip, initial encounter (HCC) DISPOSITION (Please note that portions of this note may have been completed with a voice recognition program. Efforts were made to edit the dictations but occasionally words are mis-transcribed.) Sumit Monroe MD [employer] [facility] Procedural sedation Date/Time: 06/26/2021 9:18 AM Performed by: Sumit Monroe MD Authorized by: Sumit Monroe MD Consent: Consent obtained: Written Consent given by: Patient Risks discussed: Prolonged hypoxia resulting in organ damage, prolonged sedation necessitating reversal, respiratory compromise necessitating ventilatory assistance and intubation, vomiting, nausea and inadequate sedation Indications: Procedure performed: Dislocation reduction Procedure necessitating sedation performed by: Different physician Intended level of sedation: Deep Pre-sedation assessment: Time since last food or drink: 6 hrs ASA classification: class 3 - patient with severe systemic disease Neck mobility: normal Mouth openin or more finger widths Thyromental distance: 3 finger widths Mallampati score: I - soft palate, uvula, fauces, pillars visible Pre-sedation assessments completed and reviewed: airway patency History of difficult intubation: no Pre-sedation assessment completed: 06/26/2021 8:01 AM Immediate pre-procedure details: Reassessment: Patient reassessed immediately prior to procedure Reviewed: vital signs, relevant labs/tests and NPO status Verified: bag valve mask available, emergency equipment available, intubation equipment available, IV patency confirmed, oxygen available and suction available Procedure details (see MAR for exact dosages): Sedation start time: 06/26/2021 8:54 AM Preoxygenation: Nonrebreather mask and nasal cannula Sedation: Propofol Analgesia: None Intra-procedure monitoring: Continuous pulse oximetry, frequent LOC assessments, frequent vital sign checks, blood pressure monitoring and personnel monitor Intra-procedure events: none Sedation end time: 06/26/2021 9:19 AM Pos (more content not included)... Normal [facility] ED Provider Note [facility] EMERGENCY DEPT EMERGENCY DEPARTMENT ENCOUNTER Pt Name: Debra Cole Birthdate 1940 Date of evaluation: 06/26/2021 Provider: Deanne Elizabeth, DO CHIEF COMPLAINT Chief Complaint Patient presents with ? Hip Pain sent from [facility] for hip fracture/dislocation, ortho consult HISTORY OF PRESENT ILLNESS (Location/Symptom, Timing/Onset, Context/Setting, Quality, Duration, Modifying Factors, Severity) Note limiting factors. I wore a procedure mask for the entirety of this encounter. Does this patient come from an ECF, SNF, Rehab, [facility] or other Congregate setting: No HPI Debra Cole is a 81 y.o. female who presents to the emergency department with a left hip dislocation/fracture. Patient was transferred from [facility] for left hip fracture/dislocation, recent hip replacement performed at our facility in mid May. On examination patient is alert and oriented x3, however is a very poor historian. When asking her when this occurred and she dislocated hip she tells me that she has been unable to walk since Espinoza's Day. I discussed with patient that she was recently admitted for hip replacement, of her records it does appear the patient dislocated following her hip replacement prior to discharge. Patient denies any fevers or chills. Reports that she has had persistent pain in her left hip since replacement. Patient reports that she has been unable to walk since her replacement. Patient denies any erythema of incisional site, edema or drainage. Nursing Notes were reviewed. REVIEW OF SYSTEMS (2+ for level 4; 10+ for level 5) Review of Systems All other systems reviewed and are negative. PAST MEDICAL HISTORY Past Medical History: Diagnosis Date ? Cerebral artery occlusion with cerebral infarction (HCC) ? COPD (chronic obstructive pulmonary disease) (HCC) ? Hypertension SURGICAL HISTORY Past Surgical History: Procedure Laterality Date ? COSMETIC SURGERY breast implants ? ORIF FEMUR DECOMPRESSION Left 06/08/2021 CURRENT MEDICATIONS Previous Medications CLOPIDOGREL (PLAVIX) 75 MG TABLET Take 75 mg by mouth daily FERROUS SULFATE (IRON 325) 325 (65 FE) MG TABLET Take 1 tablet by mouth 2 times daily (with meals) LEVOTHYROXINE (SYNTHROID) 75 MCG TABLET Take 75 mcg by mouth Daily LISINOPRIL (PRINIVIL;ZESTRIL) 20 MG TABLET Take 20 mg by mouth daily LORAZEPAM (ATIVAN) 0.5 MG TABLET Take 1 tablet by mouth every 8 hours as needed for Anxiety for up to 30 days. METOPROLOL SUCCINATE (TOPROL XL) 50 MG EXTENDED RELEASE TABLET Take 50 mg by mouth daily MONTELUKAST (SINGULAIR) 10 MG TABLET Take 10 mg by mouth nightly OXYBUTYNIN (DITROPAN) 5 MG TABLET Take 5 mg by mouth daily ALLERGIES Demerol hcl [meperidine] FAMILY HISTORY No family history on file. SOCIAL HISTORY Social History Socioeconomic History ? Marital status: Spouse name: Not on file ? Number of children: Not on file ? Years of education: Not on file ? Highest education level: Not on file Occupational History ? Not on file Tobacco Use ? Smoking status: Former Smoker ? Smokeless tobacco: Current User Vaping Use ? Vaping Use: Some days Substance and Sexual Activity ? Alcohol use: Not on file ? Drug use: Not on file ? Sexual activity: Not on file Other Topics Concern ? Not on file Social History Narrative ? Not on file Social Determinants of Health Financial Resource Strain: ? Difficulty of Paying Living Expenses: Not on file Food Insecurity: ? Worried About Running Out of Food in the Last Year: Not on file ? Ran Out of Food in the Last Year: Not on file Transportation Needs: ? Lack of Transportation (Medical): Not on file ? Lack of Transportation (Non-Medical): Not on file Physical Activity: ? Days of Exercise per Week: Not on file ? Minutes of Exercise per Session: Not on file Stress: ? Feeling of Stress : Not on file Social Connections: ? Frequency of Communication with Friends and Family: Not on file ? Frequency of Social Gatherings with Friends and Family: Not on file ? Attends Roman Catholic Services: Not on file ? Active Member of Clubs or Organizations: Not on file ? Attends Club or Organization Meetings: Not on file ? Marital Status: Not on file Intimate Partner Violence: ? Fear of Current or Ex-Partner: Not on file ? Emotionally Abused: Not on file ? Physically Abused: Not on file ? Sexually Abused: Not on file Housing Stability: ? Unable to Pay for Housing in the Last Year: Not on file ? Number of Places Lived in the Last Year: Not on file ? Unstable Housing in the Last Year: Not on file SCREENINGS Sheila Coma Scale Eye Opening: Spontaneous Best Verbal Response: Oriented Best Motor Response: Obeys commands Sheila Coma Scale Score: 15 PHYSICAL EXAM (up to 7 for level 4, 8 or more for level 5) ED Triage Vitals [06/26/21 0510] BP Temp Temp src Pulse Resp SpO2 Heigh (more content not included)... Normal [facility] EKG 12 Lead - Chest Painon 0 06-26-2021 [facility] Test Date: 2021-06-26 Pat Name: DEBRA COLE Department: [facility] Room: 20 Gender: F Superintendent Menagerie: THOMAS : 1940 Requested By: SUMIT MONROE Order Number: [id number] Reading MD: Sumit Monroe Measurements Intervals [place] Rate: 59 P: 92 HI: 208 QRS: 85 QRSD: 85 T: 73 QT: 425 QTc: 421 Interpretive Statements Sinus bradycardia Anteroseptal infarct, age indeterminate No ST segment elevations Electronically Signed On 06-26-2021 10:01:07 EST by Sumit Monroe [facility] Sumit Monroe MD - 06/26/2021 [employer] Test Date: 2021-06-26 Pat Name: DEBRA COLE Department: [facility] Room: 20 Gender: F Superintendent Menagerie: [facility] : 1940 Requested By: SUMIT MONROE Order Number: [id number] Reading MD: Sumit Monroe Measurements Intervals [place] Rate: 59 P: 92 HI: 208 QRS: 85 QRSD: 85 T: 73 QT: 425 QTc: 421 Interpretive Statements Sinus bradycardia Anteroseptal infarct, age indeterminate No ST segment elevations Electronically Signed On 06-26-2021 10:01:07 EST by Sumit Monroe [facility] Work Phone: [employer] Work Phone: Giana 06-26-2021 EMERGENCY PHYSICIAN REPORT This is a preliminary report only, as the practitioner review and authentication has not occurred. Normal [facility] ER PHYSICIAN ASSESSMENT RECORDS : [employer] Event Time: 06/26/2021 01:20 Status: Signed [facility] Debra Cole [[id number] ] Attending Physician 81 / F / 1940 Chart (V2b) Chart created at 06/26/2021 01:17 by Renuka Vasquez Chart closed at 06/26/2021 02:55 Entry in Emergency Department at 06/26/2021 01:00 Patient Name: Debra Cole Record Number: [id number] Date: 06/26/2021 01:17 Entered Department at: 06/26/2021 01:00 Patient Seen at: 06/26/2021 01:12 Historian: Patient PCP: JOANNA YOUNG Chief Complaint:left hip pain Pulse: 62. Respiratory Rate: 18. Blood-pressure: 179/105. Oxygen Saturation: 96%. History of Present Illness: Patient is an 81-year-old female presenting for evaluation of left hip pain. 2 weeks ago she had a hip surgery after a fall. For the last several days she been having increased pain. X-ray performed at the nursing facility today showed a hip dislocation. She presents here for further management of this. She denies any injuries elsewhere. She denies recurrent fall. She denies any numbness in her foot Review of Systems. All other systems reviewed and negative.. Past History, Medications, Allergies, Social History and [facility] PATIENT NAME: DEBRA COLE [address] [place] MEDICAL REC #: [id number] [place] [address] EMERGENCY DEPARTMENT REPORT EMERGENCY DEPARTMENT PHYSICIAN Family History reviewed in nurses note. Medications: Reviewed RN Note. LOVENOX 40MG/0.4ML SOLUTION FOR INJECTION - SQ, iron 325, SYNTHROID 75MCG TABLET - PO, LISINOPRIL 20MG TABLET - PO, LORAZEPAM 0.5MG TABLET - PO, METOPROLOL TARTRATE 50MG TABLET - PO, MONTELUKAST SODIUM 10MG, OXYBUTYNIN CHLORIDE 5MG TABLET - PO, PLAVIX 75MG TABLET - PO, OXYCODONE 5MG PRN Allergies: Reviewed RN Note Demerol(*N/A) Demerol(*N/A) Social History: Reviewed RN Note. Family History: Reviewed RN Note Physical Examination: General: Alert HEENT: Normal ENT inspection. Eyes: Lids Normal; . Neck: No Meningismus and Supple Respiratory: No Resp Distress and Normal Breath Sounds Cardio-Vascular: No rub and RRR Abdomen: Non-tender and Soft Extremity: No edema and Normal Equal pulses; Obvious deformity to the left hip with shortening and rotation of the leg. Normal strength and sensation distally. Normal pulses. Neurological: No Gross Weakness Skin: No rash, No Petechiae, Warm and Dry Psychological: Mood/Affect Normal Imaging Study Obtained: HIP LEFT COMPLETE/PELVIS Imaging Study Obtained: HIP LEFT COMPLETE/PELVIS, Status:Signed Report Available EXAM: HIP LEFT COMPLETE/PELVIS HISTORY: Hip Pain COMPARISON: None available [facility] PATIENT [facility]: [facility] [place] MEDICAL REC #: [id number] [place] [address] EMERGENCY DEPARTMENT REPORT EMERGENCY DEPARTMENT PHYSICIAN FINDINGS: A left hip lyn-arthroplasty is dislocated and displaced superiorly relative to the acetabulum. There is an avulsed fracture of the lesser trochanter with fracture fragments occupying the acetabulum. Calcified atherosclerosis is present. Degenerative changes are seen in the lower lumbar spine. Lateral cutaneous shama are present along the left hip. IMPRESSION: Left hip dislocation and lesser trochanter fractures as described. This report was electronically signed by Hever Hernandez MD 06/26/2021 2:01 AM Reported By: Hever Shabazz Medical Decision Making X-ray shows evidence of left hip dislocation and fracture of the lesser trochanter which is within the acetabulum. Because of the fracture fragments, closed reduction cannot be safely performed. The patient was discussed with Dr. Jorge Alberto Catherine at [facility] who accepted the transfer for further care. Clinical Impression: 1. Acute left hip fracture/dislocation Disposition: Transferred . Condition: Stable EMS run report reviewed (not applicable for EMT squads).. [facility] PATIENT NAME: DEBRA COLE Chelsea Paniagua MEDICAL REC #: [id number] [place] [address] EMERGENCY DEPARTMENT REPORT EMERGENCY DEPARTMENT PHYSICIAN ALEXEI munoz I was the primary ED attending.. Patient transported to ED by EMS with medical direction by [facility] physician (not applicable for EMT squads) .. ===DISCHARGE REPORT=== : FlexChartData Event Time: 06/26/2021 01:20 DEMOGRAPHICS [employer] Patient: DEBRA COLE Sex: F : 1940 Age: 81 yr Account No: [id number] (more content not included)... [facility] HIP LEFT COMPLETE/PELVISon 0 06-26-2021 HIP LEFT COMPLETE/PELVIS EXAM: HIP LEFT COMPLETE/PELVIS HISTORY: Hip Pain COMPARISON: None available FINDINGS: A left hip yln-arthroplasty is dislocated and displaced superiorly relative to the acetabulum. There is an avulsed fracture of the lesser trochanter with fracture fragments occupying the acetabulum. Calcified atherosclerosis is present. Degenerative changes are seen in the lower lumbar spine. Lateral cutaneous shama are present along the left hip. IMPRESSION: Left hip dislocation and lesser trochanter fractures as described. This report was electronically signed by Hever Hernandez MD 06/26/2021 2:01 AM Reported By: Hever Shabazz Signed By: Hever Shabazz [facility] No Panel Informationon 06-26 Radiology Study observation (narrative) [facility] Work Phone: OPERATIVE REPORTon 2 Ordered by an unspecified provider. [facility] [address] [place] [id number] Dept: [phone] Loc: [phone] Operative Report Patient Name: Debra Cole Date of : 1940 Date of Surgery: 06/26/21 Pre-operative diagnosis: Left recurrent hemiarthroplasty dislocation Post-operative diagnosis: Same Procedure(s): Failed closed reduction of left hemiarthroplasty dislocation Surgeon: Fernando Catherine M.D. Railroad Auditor(s): Lawrence Hollins M.D. and James Webb M.D. Anesthesia: General EBL: None IVF: Crystalloid Clinical History/Indication for Surgery The patient is a 81 y.o. year old female who was presents for attempted closed reduction of a recurrent left hip hemiarthroplasty dislocation. Patient is demented and is a very poor historian. She presented with deformity to the left lower extremity and plain films showed a severely shortened left hip with a dislocation of her hemiarthroplasty. Attempted close reduction was performed in the emergency department and was unsuccessful. Discussion was had with family regarding options for treatment. Given that she appeared very comfortable and did not seem to complain of pain, we felt one additional attempt at closed reduction in the operating room would be reasonable. We discussed the likelihood that this would not be successful given the severe shortening. Family was unsure of how they would want to proceed if this was unsuccessful andwanted some time to discuss isaac and consider options. No guarantees were given or implied. Operative Narration The patient was identified in the pre-operative holding area. The surgical site was identified and marked. Informed consent was obtained. The patient was then brought to the operating room and placed supine on the operating table. Anesthesia was administered and care of the head, neck, and airway was maintained by the anesthesia staff throughout the entire procedure. Longitudinal traction was applied to the left leg and fluoroscopy was taken at the hip and showed severe shortening despite fairly aggressive inline traction of her leg. One formal reduction attempt was made with the hip and knee both flexed at 90 degrees and counterpressure along the anterior pelvis but clinically this did not feel to improve her shortening and fluoroscopy confirmed that the hip still remain multiple centimeter short. Given her very poor bone quality and very frail skin, I elected to abort the procedure at this time rather than potentially cause significant complications such as fracture or skin tear. Once the patient was awakened from anesthesia, they were transported to the PACU in stable condition, having tolerated surgery well with no immediate complications. Postoperative Plan Will discuss plans with family This operative report was prepared and signed by Fernando Catherine MD at 06/26/21, 1:[address] [facility] Ortho Injuryon 06-26-2021 Sumit Monroe MD 06/26/2021 10:42 AM Ortho Injury Date/Time: 06/26/2021 9:23 AM Performed by: Sumit Monroe MD Authorized by: Sumit Monroe MD Consent: Written consent obtained. Consent given by: patient Patient understanding: patient states understanding of the procedure being performed Patient consent: the patient's understanding of the procedure matches consent given Procedure consent: procedure consent matches procedure scheduled Test results: test results available and properly labeled Site marked: the operative site was not marked Imaging studies: imaging studies available Patient identity confirmed: verbally with patient and arm band Injury location: hip Location details: left hip Injury type: dislocation Dislocation type: posterior Spontaneous dislocation: no Prosthesis: yes Pre-procedure neurovascular assessment: neurovascularly intact Pre-procedure distal perfusion: normal Pre-procedure neurological function: normal Pre-procedure range of motion: normal Anesthesia: Local anesthesia used: no Sedation: Patient sedated: yes Sedation type: moderate (conscious) sedation Sedatives: propofol Sedation start date/time: 06/26/2021 8:54 AM Sedation end date/time: 06/26/2021 9:19 AM Manipulation performed: yes Reduction method: traction and counter traction and abduction Reduction successful: no Post-procedure neurovascular assessment: post-procedure neurovascularly intact Post-procedure distal perfusion: normal Post-procedure neurological function: normal Post-procedure range of motion: normal Patient tolerance: patient tolerated the procedure well with no immediate complications Comments: Unable to reduce dislocation. During attempts there was some abrasions occurred in the hip and posterior leg area from the multiple attempts by orthopedic surgery. She was done under my supervision. [facility] Work Phone: [facility] Work Phone: Procedural sedationon 2021 Sumit Monroe MD 06/26/2021 10:42 AM Procedural sedation Date/Time: 06/26/2021 9:18 AM Performed by: Sumit Monroe MD Authorized by: Sumit Monroe MD Consent: Consent obtained: Written Consent given by: Patient Risks discussed: Prolonged hypoxia resulting in organ damage, prolonged sedation necessitating reversal, respiratory compromise necessitating ventilatory assistance and intubation, vomiting, nausea and inadequate sedation Indications: Procedure performed: Dislocation reduction Procedure necessitating sedation performed by: Different physician Intended level of sedation: Deep Pre-sedation assessment: Time since last food or drink: 6 hrs ASA classification: class 3 - patient with severe systemic disease Neck mobility: normal Mouth openin or more finger widths Thyromental distance: 3 finger widths Mallampati score: I - soft palate, uvula, fauces, pillars visible Pre-sedation assessments completed and reviewed: airway patency History of difficult intubation: no Pre-sedation assessment completed: 06/26/2021 8:01 AM Immediate pre-procedure details: Reassessment: Patient reassessed immediately prior to procedure Reviewed: vital signs, relevant labs/tests and NPO status Verified: bag valve mask available, emergency equipment available, intubation equipment available, IV patency confirmed, oxygen available and suction available Procedure details (see MAR for exact dosages): Sedation start time: 06/26/2021 8:54 AM Preoxygenation: Nonrebreather mask and nasal cannula Sedation: Propofol Analgesia: None Intra-procedure monitoring: Continuous pulse oximetry, frequent LOC assessments, frequent vital sign checks, blood pressure monitoring and personnel monitor Intra-procedure events: none Sedation end time: 06/26/2021 9:19 AM Post-procedure details: Post-sedation assessment completed: 06/26/2021 9:21 AM Attendance: Constant attendance by certified staff until patient recovered Recovery: Patient returned to pre-procedure baseline Estimated blood loss (see I/O flowsheets): no Complications: Uanble to reduced dislocation - will need to go to OR Post-sedation assessments completed and reviewed: airway patency, cardiovascular function, mental status, nausea/vomiting, pain level, respiratory function and temperature Specimens recovered: None Patient is stable for discharge or admission: no Patient tolerance: Tolerated well, no immediate complications Comments: Needs to go to OR [employer] Work Phone: [employer] Work Phone: Prothrombin Timeon 2 INR 1.1 Normal 0.9-1.1 [facility] Comment on above: Result Comment: Terrance mmended Anticoagulant Therapy: SEE BELOW ----- INR of 2.0 - 3.0 : - Prophylaxis of Venous Thrombosis (high-risk surgery) - Treatment of Venous Thrombosis - Treatment of Pulmonary Embolism (Includes tissue heart valves, Acute Myocardial Infarction to prevent systemic embolism, Valvular Heart Disease, and Atrial Fibrillation) ----- INR of 2.5 - 3.5 : - Mechanical Prosthetic Valves (high risk) - If oral anticoagulant therapy is used to prevent Myocardial Infarction Performed By: #### H MATHEUSG, PT, CMP3M #### [facility] [address] [address] PT Coag (PPP) [Time] 11.9 s Normal 9.0-12.0 [facility] Comment on above: Result Comment: . Performed By: #### H CHEYENNE, PT, CMP3M #### [address] [address] Protime-INRon 06-26-2021 INR Coag (Bld) [Relative time] 1.1 {INR} [facility] Comment on above: Recommended Anticoag ulant Therapy: SEE BELOW ----- INR of 2.0 - 3.0 : - Prophylaxis of Venous Thrombosis (high-risk surgery) - Treatment of Venous Thrombosis - Treatment of Pulmonary Embolism (Includes tissue heart valves, Acute Myocardial Infarction to prevent systemic embolism, Valvular Heart Disease, and Atrial Fibrillation) ----- INR of 2.5 - 3.5 : - Mechanical Prosthetic Valves (high risk) - If oral anticoagulant therapy is used to prevent Myocardial Infarction PT Coag (PPP) [Time] 11.9 s 9.0 - 1 2.0 s [facility] Comment on above: . Test Performed by [address] [address] [facility] [id number] 06-26-2021 SARS-CoV-2 (COVID-19) RNA DIANNA+probe Ql (Unsp spec) Positive Invalid Interpretation Code Negative [facility] Comment on above: Order Comment: Donavan s: M Result Comment: CRIT ICAL VALUE(S) VERIFIED AND CALLED TO AND READ BACK BY Nemesio LOUISE RN AT 0309 06/26/21 BY IVY LABOY Negative results do not preclude SARS-CoV-2 infection and should not be used as the sole basis for treatment or other patient management decisions. Negative results must be combined with clinical observation, patient history, and epidemiological information. This test was performed by PCR. Performed By: #### L [phone] #### [facility] [place] [address] TS GELon 06-26-2021 TS GEL ABO Group: O Rh, Gel: NEG Antibody Screen Gel: POS Normal [facility] Comment on above: Performed By: #### H EMOG, PT, CMP3M #### [address] [address] TYPE AND SCREENon 06-26-2021 ABO Grouping O [facility] Rh Type Negative [facility] Test Performed by [facility] [place] [facility], [address] [place] [id number] [place] [address] LAB [facility] Urinalysison 06-26-2021 Appearance (U) Ex.Turbid Abnormal Clear NA [facility] Comment on above: . Bacteria, UA Moderate Abnormal Negative /[HPF] [facility] Comment on above: . Bilirubin Urine Negative Negative mg/dL [facility] Comment on above: . Color (U) Yellow Lt. Yellow NA [facility] Comment on above: . Glucose, Ur Normal Normal (<70) mg/dL [facility] Comment on above: . Interpretation and review of laboratory results Abnormal [facility] Ketones Ql (U) Negative Negative mg/dL [facility] Comment on above: . LEUKOCYTES, UA 500 Abnormal Negative Matt/uL [facility] Comment on above: . Nitrite, Urine Positive Abnormal Negative NA [facility] Comment on above: . Occult Blood,Urine 0.2 mg/dL Abnormal Negative [facility] Comment on above: . pH (U) 7.0 [pH] [facility] Comment on above: . Protein (U) [Mass/Vol] 50 mg/dL Abnormal Negative [facility] Comment on above: . RBC, UA 11-25 Abnormal 0 - 2 /[HPF] [facility] Comment on above: . Specific [place]ly, Urine 1.012 [facility] Comment on above: . Squam Epithel, UA 3-5 3 - 5 /[HPF] [facility] Comment on above: . Urobilinogen, Urine Normal Normal (0-1) mg/dL [facility] Comment on above: . WBC Clumps, Urine Moderate Abnormal Negative /[HPF] [facility] Comment on above: . WBC, UA >100 Abnormal 0 - 5 /[HPF] [facility] Comment on above: . Test Performed by [facility] [place] [facility], [address] [place] [address] LAB [facility] XR Chest 1 VWon 06-26-2021 Patient Name: DEBRA RAMIREZ Diagnostic Radiology ACCESSION EXAM DATE/TIME PROCEDURE ORDERING PROVIDER [id number] 06/26/2021 10:07 EST CR Chest 1 View Frontal [id number] [place] CPT code 86175 Reason For Exam (CR Chest 1 View Frontal) Pre op Report CHEST: CLINICAL INDICATION: Preoperative evaluation TECHNIQUE: AP portable chest COMPARISON: none FINDINGS: Support devices: EKG leads The heart demonstrates normal size. Calcification of the thoracic aorta is noted. No obvious consolidation or pulmonary edema. Probable left basilar atelectasis but evaluation of the lungs is somewhat limited due to breast implant capsular calcifications. There are coarse interstitial markings likely related to chronic pulmonary disease. There is no sizable pleural effusion. The osseous structures are unremarkable. IMPRESSION: Interstitial changes in the lungs, likely chronic. Possible left basilar atelectasis. Limited study as above. Report Dictated on --- Final --- Dictated: 06/26/2021 10:11 am Dictating Physician: MD KOLB NICHOLAS Signed Date and Time: 06/26/2021 10:12 am Signed by: MD KOLB NICHOLAS Transcribed Date and Time: 06/26/2021 10:11 [facility] Laurent Kolb MD - 06/26/2021 Patient Name: DEBRA COLE Diagnostic Radiology ACCESSION EXAM DATE/TIME PROCEDURE ORDERING PROVIDER [id number] 06/26/2021 10:07 EST CR Chest 1 View Frontal [id number] [facility]IS[facility] GUTIERREZF CPT code 00808 Reason For Exam (CR Chest 1 View Frontal) Pre op Report CHEST: CLINICAL INDICATION: Preoperative evaluation TECHNIQUE: AP portable chest COMPARISON: none FINDINGS: Support devices: EKG leads The heart demonstrates normal size. Calcification of the thoracic aorta is noted. No obvious consolidation or pulmonary edema. Probable left basilar atelectasis but evaluation of the lungs is somewhat limited due to breast implant capsular calcifications. There are coarse interstitial markings likely related to chronic pulmonary disease. There is no sizable pleural effusion. The osseous structures are unremarkable. IMPRESSION: Interstitial changes in the lungs, likely chronic. Possible left basilar atelectasis. Limited study as above. Report Dictated on --- Final --- Dictated: 06/26/2021 10:11 am Dictating Physician: MD KOLB NICHOLAS Signed Date and Time: 06/26/2021 10:12 am Signed by: MD KOLB NICHOLAS Transcribed Date and Time: 06/26/2021 10:11 [facility] Work Phone: [facility] Work Phone: XR FEMUR LEFT (MIN 2 VIEWS)o n 06-26-2021 Patient Name: DEBRA RAMIREZ Diagnostic Radiology ACCESSION EXAM DATE/TIME PROCEDURE ORDERING PROVIDER [id number] 06/26/2021 09:28 EST CR Femur 2+ Views Left n [id number] DOTSON CPT code 75861 Reason For Exam (CR Femur 2+ Views Left n) Hip dislocation Report LEFT FEMUR CLINICAL INDICATION: Dislocation TECHNIQUE: AP and lateral COMPARISON: Hip radiograph from earlier today FINDINGS: Redemonstration of postsurgical changes in the left femur. Surgical shama are present. Redemonstration of superior displacement of the left femoral head prosthesis extending above the left acetabulum. Left acetabular fracture again present. Report Dictated on --- Final --- Dictated: 06/26/2021 9:28 am Dictating Physician: MD KOLB NICHOLAS Signed Date and Time: 06/26/2021 9:29 am Signed by: MD KOLB NICHOLAS Transcribed Date and Time: 06/26/2021 9:28 [facility] Laurent Kolb MD - 06/26/2021 Patient Name: DEBRA COLE Diagnostic Radiology ACCESSION EXAM DATE/TIME PROCEDURE ORDERING PROVIDER [id number] 06/26/2021 09:28 EST CR Femur 2+ Views Left n [id number] DOTSON CPT code 23561 Reason For Exam (CR Femur 2+ Views Left n) Hip dislocation Report LEFT FEMUR CLINICAL INDICATION: Dislocation TECHNIQUE: AP and lateral COMPARISON: Hip radiograph from earlier today FINDINGS: Redemonstration of postsurgical changes in the left femur. Surgical shama are present. Redemonstration of superior displacement of the left femoral head prosthesis extending above the left acetabulum. Left acetabular fracture again present. Report Dictated on --- Final --- Dictated: 06/26/2021 9:28 am Dictating Physician: MD KOLB NICHOLAS Signed Date and Time: 06/26/2021 9:29 am Signed by: MD KOLB NICHOLAS Transcribed Date and Time: 06/26/2021 9:28 [facility] Work Phone: [facility] Work Phone: XR HIP LEFT (2-3 VIEWS)on Patient Name: DEBRA RAMIREZ Diagnostic Radiology ACCESSION EXAM DATE/TIME PROCEDURE ORDERING PROVIDER [id number] 06/26/2021 09:28 EST CR Hip w/ Pelvis 2 or 3 [id number] -POLY HIGH Views Left n CPT code 03107 Reason For Exam (CR Hip w/ Pelvis 2 or 3 Views Left n) hip reduction Report PELVIS AND LEFT HIP: CLINICAL INDICATION: Left hip reduction. TECHNIQUE: AP pelvis plus AP and lateral views of the left hip COMPARISON: Radiograph from earlier today FINDINGS: Redemonstration of postsurgical changes in the left hip. A superior left hip dislocation is again seen. A left acetabular fracture is again seen. Report Dictated on --- Final --- Dictated: 06/26/2021 10:10 am Dictating Physician: MD KOLB NICHOLAS Signed Date and Time: 06/26/2021 10:11 am Signed by: MD KOLB NICHOLAS Transcribed Date and Time: 06/26/2021 10:10 [facility] Work Phone: Laurent Kolb MD - 06/26/2021 Patient Name: DEBRA COLE Diagnostic Radiology ACCESSION EXAM DATE/TIME PROCEDURE ORDERING PROVIDER [id number] 06/26/2021 09:28 EST CR Hip w/ Pelvis 2 or 3 [id number] POLY KEVIN Views Left n CPT code 54478 Reason For Exam (CR Hip w/ Pelvis 2 or 3 Views Left n) hip reduction Report PELVIS AND LEFT HIP: CLINICAL INDICATION: Left hip reduction. TECHNIQUE: AP pelvis plus AP and lateral views of the left hip COMPARISON: Radiograph from earlier today FINDINGS: Redemonstration of postsurgical changes in the left hip. A superior left hip dislocation is again seen. A left acetabular fracture is again seen. Report Dictated on --- Final --- Dictated: 06/26/2021 10:10 am Dictating Physician: MD KOLB NICHOLAS Signed Date and Time: 06/26/2021 10:11 am Signed by: MD KOLB NICHOLAS Transcribed Date and Time: 06/26/2021 10:10 [facility] Work Phone: [id number] Radiology ACCESSION EXAM DATE/TIME PROCEDURE ORDERING PROVIDER [id number] 06/26/2021 06:28 EST CR Hip w/ Pelvis 2 or 3 [id number] SmoothGLENN, Views Left n DEANNE CPT code 55475 Reason For Exam (CR Hip w/ Pelvis 2 or 3 Views Left n) dislocation Report LEFT HIP: CLINICAL INDICATION: Left hip pain. 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 TECHNIQUE: AP Pelvis, AP and frog leg lateral views of the left hip were obtained. COMPARISON: 06/15/2021. FINDINGS: Left femoral head prosthesis is superiorly displaced and is positioned lateral to the left iliac wing. There is no loosening of the femoral stem. There are multiple displaced bone fragments in the left hip joint, likely arising from the left acetabulum. Left femoral head and stem prosthesis is maintained by cerclage wire along the proximal left femur. There is no evidence for fracture or dislocation. Normal bone density is demineralized. No other bony or soft tissue abnormality is identified. Esparza catheter balloon overlies the urinary bladder. Mild aortoiliac vascular calcifications. IMPRESSION: Acute, prosthetic left hip dislocation. Left acetabular fracture with displaced bone fragments. Diffuse osteopenia. Report Dictated on --- Final --- Dictated: 06/26/2021 6:56 am Dictating Physician: SUMIT TERRY DO, I Signed Date and Time: 06/26/2021 7:01 am Signed by: SUMIT TERRY DO, I Transcribed Date and Time: 06/26/2021 6:56 [facility] Sumit Boo DO - 06/26/2021 Patient Name: DEBRA COLE Diagnostic Radiology ACCESSION EXAM DATE/TIME PROCEDURE ORDERING PROVIDER [id number] 06/26/2021 06:28 EST CR Hip w/ Pelvis 2 or 3 [id number] -GLENN, Views Left n DEANNE CPT code 24631 Reason For Exam (CR Hip w/ Pelvis 2 or 3 Views Left n) dislocation Report LEFT HIP: CLINICAL INDICATION: Left hip pain. 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 TECHNIQUE: AP Pelvis, AP and frog leg lateral views of the left hip were obtained. COMPARISON: 06/15/2021. FINDINGS: Left femoral head prosthesis is superiorly displaced and is positioned lateral to the left iliac wing. There is no loosening of the femoral stem. There are multiple displaced bone fragments in the left hip joint, likely arising from the left acetabulum. Left femoral head and stem prosthesis is maintained by cerclage wire along the proximal left femur. There is no evidence for fracture or dislocation. Normal bone density is demineralized. No other bony or soft tissue abnormality is identified. Esparza catheter balloon overlies the urinary bladder. Mild aortoiliac vascular calcifications. IMPRESSION: Acute, prosthetic left hip dislocation. Left acetabular fracture with displaced bone fragments. Diffuse osteopenia. Report Dictated on --- Final --- Dictated: 06/26/2021 6:56 am Dictating Physician: SUMIT TERRY DO, I Signed Date and Time: 06/26/2021 7:01 am Signed by: SUMIT TERRY DO, I Transcribed Date and Time: 06/26/2021 6:56 [facility] Work Phone: XR HIP LEFT (2-3 VIEWS)Order ed By: Laurent Kolb on 06-26-2021 [facility] Work Phone: XR HIP LEFT (2-3 VIEWS)Order ed By: Sumit Terry on 06-26-2021 [facility] Work Phone: Basic Metabolic Panelon - Anion gap [Moles/Vol] 1 mmol/L Low 3-13 [facility] Comment on above: Performed By: #### H EMDF, BMP3 #### [facility] [address] [place], [place] Calcium [Mass/Vol] 8.4 mg/dL Normal 8.4-10.4 [facility] Comment on above: Performed By: #### H EMDF, BMP3 #### [facility] [address], [place] CO2 [Moles/Vol] 25 mmol/L Normal 22-30 [facility] Comment on above: Performed By: #### H EMDF, BMP3 #### [facility] [address], [place] Glucose [Mass/Vol] 96 mg/dL Normal 70-100 [facility] Comment on above: Performed By: #### H EMDF, BMP3 #### [facility] [address], [place] Urea nitrogen [Mass/Vol] 30 mg/dL High 9-20 [facility] Comment on above: Performed By: #### H EMDF, BMP3 #### [facility] [address], [place] Creatinine [Mass/Vol] 0.76 mg/dL Normal 0.52-1.25 [facility] Comment on above: Performed By: #### H EMDF, BMP3 #### [facility] [address], [place] GFR/1.73 sq M.predicted among blacks MDRD (S/P/Bld) [Vol rate/Area] 85.7 mL/min/{1.73_m2} Normal >60 [facility] Comment on above: Performed By: #### H EMDF, BMP3 #### [facility] [address], [place] GFR/1.73 sq M.predicted among non-blacks MDRD (S/P/Bld) [Vol rate/Area] 73.9 mL/min/{1.73_m2} Normal >60 [facility] Comment on above: Result Comment: KDIG O guidelines provide the following GFR categories: Stage GFR(ml/min/1.73 m2) Terms G1 >=90 Normal or high G2 60-89 Mildly decreased* G3a 45-59 Mildly to moderately decreased G3b 30-44 Moderately to severely decreased G4 15-29 Severely decreased G5 <15 Kidney failure *Relative to young adult level. In the absence of evidence of kidney damage, neither GFR category G1 nor G2 fulfill the criteria for CKD. The CKD-EPI equation is validated in individuals 18 years of age and older. Currently the best equation for estimating glomerular filtration rate (GFR) from serum creatinine in children is the Bedside Matamoros equation. It is less accurate in patients with extremes of muscle mass, restriction of dietary protein, ingestion of creatine, extra-renal metabolism of creatinine, or treatment with medications that affect renal tubular creatinine secretion. Performed By: #### H JOSSY BMP3 #### [address] [address] [place], [place] Potassium [Moles/Vol] 3.9 mmol/L Normal 3.5-5.1 [facility] Comment on above: Performed By: #### H JOSSY BMP3 #### [address] [address] [place], [place] Sodium [Moles/Vol] 136 mmol/L Normal 135-145 [facility] Comment on above: Performed By: #### H JOSSY BMP3 #### [address] [address] [place], [place] Chloride [Moles/Vol] 109 mmol/L High 98-107 [facility] Comment on above: Performed By: #### H JOSSY BMP3 #### [address] Anion gap [Moles/Vol] 1 mmol/L Low 3 - 13 mmol/L [facility] Calcium [Mass/Vol] 8.4 mg/dL 8.4 - 10. 4 mg/dL [facility] Chloride [Moles/Vol] 109 mmol/L High 98 - 10 7 mmol/L [facility] CO2 [Moles/Vol] 25 mmol/L 22 - 30 mmol/L [facility] Creatinine [Mass/Vol] 0.76 mg/dL 0.52 - 1.25 mg/dL [facility] EGFR IF NonAfrican [place] 73.9 mL/min >60 [facility] Comment on above: KDIGO guidelines pro vide the following GFR categories: Stage GFR(ml/min/1.73 m2) Terms G1 >=90 Normal or high G2 60-89 Mildly decreased* G3a 45-59 Mildly to moderately decreased G3b 30-44 Moderately to severely decreased G4 15-29 Severely decreased G5 <15 Kidney failure *Relative to young adult level. In the absence of evidence of kidney damage, neither GFR category G1 nor G2 fulfill the criteria for CKD. The CKD-EPI equation is validated in individuals 18 years of age and older. Currently the best equation for estimating glomerular filtration rate (GFR) from serum creatinine in children is the Bedside Matamoros equation. It is less accurate in patients with extremes of muscle mass, restriction of dietary protein, ingestion of creatine, extra-renal metabolism of creatinine, or treatment with medications that affect renal tubular creatinine secretion. GFR/1.73 sq M.predicted among blacks MDRD (S/P/Bld) [Vol rate/Area] 85.7 mL/min/{1.73_m2} >60 [facility] Glucose [Mass/Vol] 96 mg/dL 70 - 100 mg/dL [facility] Interpretation and review of laboratory results Abnormal [facility] Potassium [Moles/Vol] 3.9 mmol/L 3.5 - 5.1 mmol/L [facility] Sodium [Moles/Vol] 136 mmol/L 135 - 145 mmol/L [facility] Urea nitrogen (BldV) [Mass/Vol] 30 mg/dL High 9 - 20 mg/dL [facility] Test Performed by [facility] [place] [facility], [address] [place] [id number] [place] [address] [facility] Auto Differential[facility] 05-27 Hematocrit (Bld) [Volume fraction] 22.3 % Low 35.0 - 47.0 % [facility] Hemoglobin.gastrointe stinal spec 1 Ql (Stl) 7.0 g/dL Low 11.7 - 16.0 g/dL [facility] Interpretation and review of laboratory results Abnormal [facility] MCH (RBC) [Entitic mass] 29.6 pg 26.0 - 34.0 pg [facility] MCHC (RBC) [Mass/Vol] 31.3 % Low 32.0 - 36.0 % [facility] MCV (RBC) [Entitic vol] 94.7 fL 79.0 - 98.0 fL [facility] Platelet distribution width (Bld) [Ratio] 19.2 % High 11.5 - 14.5 % [facility] Platelet mean volume (Bld) [Entitic vol] 6.5 fL Low 7.4 - 10.4 fL [facility] Platelets (Bld) [#/Vol] 679 10*3/uL High 140 - 440 10*3/uL [facility] RBC (Bld) [#/Vol] 2.35 10*6/uL Low 3.80 - 5.2 0 10*6/uL [facility] WBC (Bld) [#/Vol] 12.5 10*3/uL High 3.6 - 10.7 10*3/uL [facility] Test Performed by [id number] [place] [address] LAB [facility] Hemogram w/ Autodiffon 06-17 Erythrocyte distribution width (RBC) [Ratio] 19.2 % High 11.5-14.5 [facility] Comment on above: Performed By: #### H JOSSY BMP3 #### [address] [phone] Hematocrit (Bld) [Volume fraction] 22.3 % Low 35.0-47.0 [facility] Comment on above: Performed By: #### H JOSSY BMP3 #### [address] [phone] Hemoglobin (Bld) [Mass/Vol] 7.0 g/dL Low 11.7-16.0 [facility] Comment on above: Performed By: #### H JOSSY BMP3 #### [address] [phone] MCH (RBC) [Entitic mass] 29.6 pg Normal 26.0-34.0 [facility] Comment on above: Performed By: #### H JOSSY BMP3 #### [facility] [address] [place], [place] MCHC 31.3 % Low 32.0-36.0 [facility] Comment on above: Performed By: #### H JOSSY BMP3 #### [facility] [address] [place], [place] MCV (RBC) [Entitic vol] 94.7 fL Normal 79.0-98.0 [facility] Comment on above: Performed By: #### H JOSSY BMP3 #### [facility] [address] [place], [place] Platelet mean volume (Bld) [Entitic vol] 6.5 fL Low 7.4-10.4 [facility] Comment on above: Performed By: #### H JOSSY BMP3 #### [address] [address] [address] [place], [place] Platelets (Bld) [#/Vol] 679 10*3/uL High 140-440 [facility] Comment on above: Performed By: #### H JOSSY BMP3 #### [address] [address] [address] [place], [place] RBC (Bld) [#/Vol] 2.35 10*6/uL Low 3.80-5.20 [facility] Comment on above: Performed By: #### H JOSSY BMP3 #### [address] [address] [place], [place] WBC (Bld) [#/Vol] 12.5 10*3/uL High 3.6-10.7 [facility] Comment on above: Performed By: #### H EMDOswaldo BMP3 #### [address] [place], [place] Manual Diffon 06-17-2021 Abs Eosin Cnt 0.2 10*3/uL Normal 0.0-0.5 [facility] Comment on above: Performed By: #### H EMDF BMP3 #### [address] [address] [place], [place] Abs Lymph Cnt 0.8 10*3/uL Low 1.1-4.5 [facility] Comment on above: Performed By: #### H EMDF, BMP3 #### [facility] [address] [place], [place] Abs Monocyte Cnt 0.4 10*3/uL Normal 0.2-1.1 [facility] Comment on above: Performed By: #### H EMDF, BMP3 #### [facility] [address] [place], [place] Abs Neutrophile Cnt 11.1 10*3/uL High 2.2-8.2 [facility] Comment on above: Performed By: #### H EMDF, BMP3 #### [address] [address] [address] [place], [place] Bands 1 % Normal 0-3 [facility] Comment on above: Performed By: #### H EMDF, BMP3 #### [address] [address] [address] [place], [place] Eosinophils 2 % Normal 1-6 [facility] Comment on above: Performed By: #### H EMDF, BMP3 #### [address] [address] [place], [place] Hypochromia Slight Normal [facility] Comment on above: Performed By: #### H EMDF, BMP3 #### [address] [address] [address] [place], [place] Lymphocytes 6 % Low 20-40 [facility] Comment on above: Performed By: #### H EMDF, BMP3 #### [address] [address] [address] [place], [place] Macrocytosis Slight Normal [facility] Comment on above: Performed By: #### H EMDF, BMP3 #### [address] [address] [place], [place] Monocytes 3 % Normal 2-10 [facility] Comment on above: Performed By: #### H EMDF, BMP3 #### [address] [address] [address] [place], [place] RBC Morphology See Prev Normal [facility] Comment on above: Performed By: #### H EMDF, BMP3 #### [facility] [address] [place], [place] Seg Neutrophils 88 % High 40-80 [facility] Comment on above: Performed By: #### H EMDF BMP3 #### [facility] [address] [place], [place] Abs Baso Cnt 0.0 10*3/uL Normal 0.0-0.2 [facility] Comment on above: Performed By: #### H EMDF BMP3 #### [facility] [address] [place], [place] Basophils 0 % Normal 0-2 [facility] Comment on above: Performed By: #### H EMDF BMP3 #### [facility] [address] [place], [place] Cells counted 100 Normal [facility] Comment on above: Performed By: #### H EMDOswaldo BMP3 #### [facility] [address] [place], [place] Manual Differentialon 2021 Absolute Baso # 0.0 10*3/uL 0.0 - 0.2 10*3/uL [facility] Absolute Eos # 0.2 10*3/uL 0.0 - 0.5 10*3/uL [facility] Absolute Lymph # 0.8 10*3/uL Low 1.1 - 4.5 10*3/uL [facility] Absolute [place] # 0.4 10*3/uL 0.2 - 1.1 10*3/uL [facility] Absolute Neut # 11.1 10*3/uL High 2.2 - 8.2 10*3/uL [facility] Bands 1 % 0 - 3 % [facility] Basophils/100 WBC (Bld) 0 % 0 - 2 % [facility] Eosinophils/100 WBC (Bld) 2 % 1 - 6 % [facility] Hypochromia Slight [facility] Interpretation and review of laboratory results Abnormal [facility] Lymphocytes/100 WBC (Bld) 6 % Low 20 - 40 % [facility] Macrocytosis Slight [facility] Monocytes/100 WBC (Bld) 3 % 2 - 10 % [facility] RBC (Bld) [#/Vol] See Prev [facility] Seg Neutrophils 88 % High 40 - 80 % [facility] TOTAL CELLS COUNTED 100 [facility] Test Performed by [facility] [place] [facility], [address] [place] [id number] [facility] POCT COVID-19, Antigenon SARS-CoV-2 Nucleocapsid Antigen Negative Negative NA [facility] Comment on above: A negative result does not rule out the possibility of SARS-CoV-2 infection. NAAT-based methods should be considered for symptomatic patients presenting greater than seven days after onset of symptoms. Method: Lateral flow immunoassay. Fact sheets for healthcare providers and patients can be found at the following sites: https://www.[facility].gov/media/315667/download https://www.[employer].gov/media/177605/download Test Performed by [id number] [place] [address] LAB [facility] SARS-CoV-2 Antigenon 022 SARS-CoV-2 Antigen Negative Normal Negative [facility] Comment on above: Result Comment: A negative result does not rule out the possibility of SARS-CoV-2 infection. NAAT-based methods should be considered for symptomatic patients presenting greater than seven days after onset of symptoms. Method: Lateral flow immunoassay. Fact sheets for healthcare providers and patients can be found at the following sites: https://www.[employer].gov/media/764746/download https://www.[employer].gov/media/509563/download Performed By: #### H JOSSY BMP3 #### [address] ANTIBODY IDENTIFICATIONon Antibody ID POS, ANTI D POS, ANTI C [facility] Antibody Identification Antibody Identification: POS, ANTI D POS, ANTI C Normal [facility] Comment on above: Performed By: #### H JOSSY BMP3 #### [address] Basic Metabolic Panelon 05-27 Anion gap [Moles/Vol] 2 mmol/L Low 3-13 [facility] Comment on above: Performed By: #### H JOSSY BMP3 #### [address] [place], [place] Calcium [Mass/Vol] 7.9 mg/dL Low 8.4-10.4 [facility] Comment on above: Performed By: #### H JOSSY BMP3 #### [facility] [address] [place], [place] CO2 [Moles/Vol] 25 mmol/L Normal 22-30 [facility] Comment on above: Performed By: #### H JOSSY BMP3 #### [facility] [address] [place], [place] Glucose [Mass/Vol] 82 mg/dL Normal 70-100 [facility] Comment on above: Performed By: #### H JOSSY BMP3 #### [facility] [address] [place], [place] Urea nitrogen [Mass/Vol] 27 mg/dL High 9-20 [facility] Comment on above: Performed By: #### H JOSSY BMP3 #### [facility] [address] [place], [place] Creatinine [Mass/Vol] 0.60 mg/dL Normal 0.52-1.25 [facility] Comment on above: Performed By: #### H JOSSY BMP3 #### [facility] [address] [place], [place] GFR/1.73 sq M.predicted among blacks MDRD (S/P/Bld) [Vol rate/Area] mL/min/{1.73_m2} Normal >60 [facility] Comment on above: Performed By: #### H JOSSY, BMP3 #### [facility] [address] [place], [place] GFR/1.73 sq M.predicted among non-blacks MDRD (S/P/Bld) [Vol rate/Area] 85.9 mL/min/{1.73_m2} Normal >60 [facility] Comment on above: Result Comment: KDIG O guidelines provide the following GFR categories: Stage GFR(ml/min/1.73 m2) Terms G1 >=90 Normal or high G2 60-89 Mildly decreased* G3a 45-59 Mildly to moderately decreased G3b 30-44 Moderately to severely decreased G4 15-29 Severely decreased G5 <15 Kidney failure *Relative to young adult level. In the absence of evidence of kidney damage, neither GFR category G1 nor G2 fulfill the criteria for CKD. The CKD-EPI equation is validated in individuals 18 years of age and older. Currently the best equation for estimating glomerular filtration rate (GFR) from serum creatinine in children is the Bedside Matamoros equation. It is less accurate in patients with extremes of muscle mass, restriction of dietary protein, ingestion of creatine, extra-renal metabolism of creatinine, or treatment with medications that affect renal tubular creatinine secretion. Performed By: #### H JOSSY BMP3 #### [address] Chloride [Moles/Vol] 103 mmol/L Normal 98-107 [facility] Comment on above: Performed By: #### H JOSSY BMP3 #### [address] Potassium [Moles/Vol] 3.8 mmol/L Normal 3.5-5.1 [facility] Comment on above: Performed By: #### H JOSSY BMP3 #### [address] Sodium [Moles/Vol] 131 mmol/L Low 135-145 [facility] Comment on above: Performed By: #### H JOSSY, BMP3 #### [address] Anion gap [Moles/Vol] 2 mmol/L Low 3 - 13 mmol/L [facility] Calcium [Mass/Vol] 7.9 mg/dL Low 8.4 - 10. 4 mg/dL [facility] Chloride [Moles/Vol] 103 mmol/L 98 - 10 7 mmol/L [facility] CO2 [Moles/Vol] 25 mmol/L 22 - 30 mmol/L [facility] Creatinine [Mass/Vol] 0.6 mg/dL 0.52 - 1.25 mg/dL [facility] EGFR IF NonAfrican [place] 85.9 mL/min >60 [facility] Comment on above: KDIGO guidelines pro vide the following GFR categories: Stage GFR(ml/min/1.73 m2) Terms G1 >=90 Normal or high G2 60-89 Mildly decreased* G3a 45-59 Mildly to moderately decreased G3b 30-44 Moderately to severely decreased G4 15-29 Severely decreased G5 <15 Kidney failure *Relative to young adult level. In the absence of evidence of kidney damage, neither GFR category G1 nor G2 fulfill the criteria for CKD. The CKD-EPI equation is validated in individuals 18 years of age and older. Currently the best equation for estimating glomerular filtration rate (GFR) from serum creatinine in children is the Bedside Matamoros equation. It is less accurate in patients with extremes of muscle mass, restriction of dietary protein, ingestion of creatine, extra-renal metabolism of creatinine, or treatment with medications that affect renal tubular creatinine secretion. GFR/1.73 sq M.predicted among blacks MDRD (S/P/Bld) [Vol rate/Area] mL/min/{1.73_m2} >60 mL/min [facility] Glucose [Mass/Vol] 82 mg/dL 70 - 100 mg/dL [facility] Interpretation and review of laboratory results Abnormal [facility] Potassium [Moles/Vol] 3.8 mmol/L 3.5 - 5.1 mmol/L [facility] Sodium [Moles/Vol] 131 mmol/L Low 135 - 145 mmol/L [facility] Urea nitrogen (BldV) [Mass/Vol] 27 mg/dL High 9 - 20 mg/dL [facility] Test Performed by [id number] [place] [address] LAB [facility] CBC Auto Differentialon 05-27 Hematocrit (Bld) [Volume fraction] 20.3 % Low 35.0 - 47.0 % [facility] Hemoglobin.gastrointe stinal spec 1 Ql (Stl) 6.8 g/dL Critically low 11.7 - 16.0 g/dL [facility] Comment on above: REPEATED Interpretation and review of laboratory results Abnormal [facility] MCH (RBC) [Entitic mass] 31.0 pg 26.0 - 34.0 pg [facility] MCHC (RBC) [Mass/Vol] 33.4 % 32.0 - 36.0 % [facility] MCV (RBC) [Entitic vol] 92.9 fL 79.0 - 98.0 fL [facility] Platelet distribution width (Bld) [Ratio] 18.7 % High 11.5 - 14.5 % [facility] Platelet mean volume (Bld) [Entitic vol] 6.6 fL Low 7.4 - 10.4 fL [facility] Platelets (Bld) [#/Vol] 557 10*3/uL High 140 - 440 10*3/uL [facility] RBC (Bld) [#/Vol] 2.19 10*6/uL Low 3.80 - 5.2 0 10*6/uL [facility] WBC (Bld) [#/Vol] 8.8 10*3/uL 3.6 - 10.7 10*3/uL [facility] Test Performed by [facility] [place] [facility], [address] [place] [phone] [place] [address] LAB [facility] Hemoglobin AND Hematocriton 06-16-2021 Hematocrit (Bld) [Volume fraction] 22.2 % Low 35.0-47.0 [facility] Comment on above: Performed By: #### H JOSSY, BMP3 #### [address] Hemoglobin (Bld) [Mass/Vol] 7.3 g/dL Low 11.7-16.0 [facility] Comment on above: Performed By: #### H JOSSY, BMP3 #### [address] Hemoglobin and Hematocriton 06-16-2021 Hematocrit (Bld) [Volume fraction] 22.2 % Low 35.0 - 47.0 % [facility] Hemoglobin.gastrointe stinal spec 1 Ql (Stl) 7.3 g/dL Low 11.7 - 16.0 g/dL [facility] Interpretation and review of laboratory results Abnormal [facility] Test Performed by [facility] [place] [facility], [address] [place] [id number] [facility] Hemogram w/ Autodiffon 06-16 Erythrocyte distribution width (RBC) [Ratio] 18.7 % High 11.5-14.5 [facility] Comment on above: Performed By: #### H EMDF, BMP3 #### [address] [phone] Hematocrit (Bld) [Volume fraction] 20.3 % Low 35.0-47.0 [facility] Comment on above: Performed By: #### H EMDF BMP3 #### [facility] [address] [place], [place] Hemoglobin (Bld) [Mass/Vol] 6.8 g/dL Critically low 11.7-16.0 [facility] Comment on above: Result Comment: REPE ATED Performed By: #### H JOSSY BMP3 #### [facility] [address] [place], [place] MCH (RBC) [Entitic mass] 31.0 pg Normal 26.0-34.0 [facility] Comment on above: Performed By: #### H JOSSY BMP3 #### [address] [address] [address] [place], [place] MCHC 33.4 % Normal 32.0-36.0 [facility] Comment on above: Performed By: #### H JOSSY BMP3 #### [address] [address] [address] [place], [place] MCV (RBC) [Entitic vol] 92.9 fL Normal 79.0-98.0 [facility] Comment on above: Performed By: #### H JOSSY BMP3 #### [address] [address] [place], [place] Platelet mean volume (Bld) [Entitic vol] 6.6 fL Low 7.4-10.4 [facility] Comment on above: Performed By: #### H ANDREWF BMP3 #### [address] [place], [place] Platelets (Bld) [#/Vol] 557 10*3/uL High 140-440 [facility] Comment on above: Performed By: #### H EMDF BMP3 #### [address] [place], [place] RBC (Bld) [#/Vol] 2.19 10*6/uL Low 3.80-5.20 [facility] Comment on above: Performed By: #### H EMDF BMP3 #### [address] [place], [place] WBC (Bld) [#/Vol] 8.8 10*3/uL Normal 3.6-10.7 [facility] Comment on above: Performed By: #### H JOSSY BMP3 #### [address] [address] [address] [place], [place] Manual Diffon 06-16-2021 Abs Baso Cnt 0.1 10*3/uL Normal 0.0-0.2 [facility] Comment on above: Performed By: #### H JOSSY BMP3 #### [address] [address] [place], [place] Abs Eosin Cnt 0.2 10*3/uL Normal 0.0-0.5 [facility] Comment on above: Performed By: #### H JOSSY BMP3 #### [address] [place], [place] Abs Lymph Cnt 1.0 10*3/uL Low 1.1-4.5 [facility] Comment on above: Performed By: #### H JOSSY BMP3 #### [address] [address] [place], [place] Abs Monocyte Cnt 0.4 10*3/uL Normal 0.2-1.1 [facility] Comment on above: Performed By: #### H JOSSY BMP3 #### [address] [address] [place], [place] Abs Neutrophile Cnt 6.9 10*3/uL Normal 2.2-8.2 [facility] Comment on above: Performed By: #### H EMDOswaldo BMP3 #### [address] [address] [address] [place] Bands 2 % Normal 0-3 [facility] Comment on above: Performed By: #### H EMDOswaldo BMP3 #### [address] [address] [address] [place] Basophils 1 % Normal 0-2 [facility] Comment on above: Performed By: #### H EMDOswaldo BMP3 #### [address] [address] [address] [place] Eosinophils 2 % Normal 1-6 [facility] Comment on above: Performed By: #### H EMDF, BMP3 #### [facility] [address] [place], [place] Lymphocytes 11 % Low 20-40 [facility] Comment on above: Performed By: #### H EMDF, BMP3 #### [facility] [address] [place], [place] Metamyelocytes 2 % Abnormal <1 [facility] Comment on above: Performed By: #### H EMDF, BMP3 #### [facility] [address] [place], [place] Monocytes 5 % Normal 2-10 [facility] Comment on above: Performed By: #### H EMDF, BMP3 #### [address] [place] Myelocytes 1 % Abnormal <1 [facility] Comment on above: Performed By: #### H EMDF, BMP3 #### [facility] [address] [place], [place] RBC Morphology See Prev Normal [facility] Comment on above: Performed By: #### H EMDF, BMP3 #### [facility] [address] [place], [place] Seg Neutrophils 76 % Normal 40-80 [facility] Comment on above: Performed By: #### H EMDF, BMP3 #### [address] [address] [address] [place], [place] Cells counted 100 Normal [facility] Comment on above: Performed By: #### H EMDF, BMP3 #### [facility] [address] [place], [place] Manual Differentialon 2021 Absolute Baso # 0.1 10*3/uL 0.0 - 0.2 10*3/uL [facility] Absolute Eos # 0.2 10*3/uL 0.0 - 0.5 10*3/uL [facility] Absolute Lymph # 1.0 10*3/uL Low 1.1 - 4.5 10*3/uL [facility] Absolute [place] # 0.4 10*3/uL 0.2 - 1.1 10*3/uL [facility] Absolute Neut # 6.9 10*3/uL 2.2 - 8.2 10*3/uL [facility] Bands 2 % 0 - 3 % [facility] Basophils/100 WBC (Bld) 1 % 0 - 2 % [facility] Eosinophils/100 WBC (Bld) 2 % 1 - 6 % [facility] Interpretation and review of laboratory results Abnormal [facility] Lymphocytes/100 WBC (Bld) 11 % Low 20 - 40 % [facility] Metamyelocytes 2 % Abnormal <1 [facility] Monocytes/100 WBC (Bld) 5 % 2 - 10 % [facility] Myelocytes 1 % Abnormal <1 [facility] RBC (Bld) [#/Vol] See Prev [facility] Seg Neutrophils 76 % 40 - 80 % [facility] TOTAL CELLS COUNTED 100 [facility] Test Performed by [id number] [place] [address] LAB [facility] No Panel Informationon 06-16 Test Performed by [id number] [place] [address] LAB [facility] TS GELon 06-16-2021 TS GEL ABO Group: O Rh, Gel: NEG Antibody Screen Gel: POS Normal [facility] Comment on above: Performed By: #### H JOSSY BMP3 #### [address] [id number] TYPE AND SCREENon 06-16-2021 ABO Grouping O [facility] Basic Metabolic Panelon 05-27 Anion gap [Moles/Vol] 4 mmol/L Normal 3-13 [facility] Comment on above: Performed By: #### H JOSSY BMP3 #### [address] [place] [address] Calcium [Mass/Vol] 8.4 mg/dL Normal 8.4-10.4 [facility] Comment on above: Performed By: #### H JOSSY BMP3 #### [address] [place] [address] CO2 [Moles/Vol] 27 mmol/L Normal 22-30 [facility] Comment on above: Performed By: #### H JOSSY BMP3 #### [facility] [address] [place] [address] Glucose [Mass/Vol] 104 mg/dL High 70-100 [facility] Comment on above: Performed By: #### H EMDF, BMP3 #### [facility] [address] [place] [address] Urea nitrogen [Mass/Vol] 38 mg/dL High 9-20 [facility] Comment on above: Performed By: #### H EMDF, BMP3 #### [facility] [address] [place] [address] Creatinine [Mass/Vol] 0.83 mg/dL Normal 0.52-1.25 [facility] Comment on above: Performed By: #### H EMDF, BMP3 #### [facility] [address] [place] [address] GFR/1.73 sq M.predicted among blacks MDRD (S/P/Bld) [Vol rate/Area] 77.0 mL/min/{1.73_m2} Normal >60 [facility] Comment on above: Performed By: #### H EMDF, BMP3 #### [facility] [address] [place] [address] GFR/1.73 sq M.predicted among non-blacks MDRD (S/P/Bld) [Vol rate/Area] 66.5 mL/min/{1.73_m2} Normal >60 [facility] Comment on above: Result Comment: KDIG O guidelines provide the following GFR categories: Stage GFR(ml/min/1.73 m2) Terms G1 >=90 Normal or high G2 60-89 Mildly decreased* G3a 45-59 Mildly to moderately decreased G3b 30-44 Moderately to severely decreased G4 15-29 Severely decreased G5 <15 Kidney failure *Relative to young adult level. In the absence of evidence of kidney damage, neither GFR category G1 nor G2 fulfill the criteria for CKD. The CKD-EPI equation is validated in individuals 18 years of age and older. Currently the best equation for estimating glomerular filtration rate (GFR) from serum creatinine in children is the Bedside Matamoros equation. It is less accurate in patients with extremes of muscle mass, restriction of dietary protein, ingestion of creatine, extra-renal metabolism of creatinine, or treatment with medications that affect renal tubular creatinine secretion. Performed By: #### H KELLY FENTON3 #### [facility] [address] [place], [place] Chloride [Moles/Vol] 99 mmol/L Normal 98-107 [facility] Comment on above: Performed By: #### H KELLY FENTON3 #### [facility] [address] [place], [place] Potassium [Moles/Vol] 4.1 mmol/L Normal 3.5-5.1 [facility] Comment on above: Performed By: #### H KELLY FENTON3 #### [address] Sodium [Moles/Vol] 131 mmol/L Low 135-145 [facility] Comment on above: Performed By: #### H KELLY FENTON3 #### [address] Anion gap [Moles/Vol] 4 mmol/L 3 - 13 mmol/L [facility] Calcium [Mass/Vol] 8.4 mg/dL 8.4 - 10. 4 mg/dL [facility] Chloride [Moles/Vol] 99 mmol/L 98 - 10 7 mmol/L [facility] CO2 [Moles/Vol] 27 mmol/L 22 - 30 mmol/L [facility] Creatinine [Mass/Vol] 0.83 mg/dL 0.52 - 1.25 mg/dL [facility] EGFR IF NonAfrican [place] 66.5 mL/min >60 [facility] Comment on above: KDIGO guidelines pro vide the following GFR categories: Stage GFR(ml/min/1.73 m2) Terms G1 >=90 Normal or high G2 60-89 Mildly decreased* G3a 45-59 Mildly to moderately decreased G3b 30-44 Moderately to severely decreased G4 15-29 Severely decreased G5 <15 Kidney failure *Relative to young adult level. In the absence of evidence of kidney damage, neither GFR category G1 nor G2 fulfill the criteria for CKD. The CKD-EPI equation is validated in individuals 18 years of age and older. Currently the best equation for estimating glomerular filtration rate (GFR) from serum creatinine in children is the Bedside Matamoros equation. It is less accurate in patients with extremes of muscle mass, restriction of dietary protein, ingestion of creatine, extra-renal metabolism of creatinine, or treatment with medications that affect renal tubular creatinine secretion. GFR/1.73 sq M.predicted among blacks MDRD (S/P/Bld) [Vol rate/Area] 77.0 mL/min/{1.73_m2} >60 [facility] Glucose [Mass/Vol] 104 mg/dL High 70 - 100 mg/dL [facility] Interpretation and review of laboratory results Abnormal [facility] Potassium [Moles/Vol] 4.1 mmol/L 3.5 - 5.1 mmol/L [facility] Sodium [Moles/Vol] 131 mmol/L Low 135 - 145 mmol/L [facility] Urea nitrogen (BldV) [Mass/Vol] 38 mg/dL High 9 - 20 mg/dL [facility] Test Performed by [facility] [place] [facility], [address] [place] [id number] [place] [address] LAB [facility] CBC Auto Differentialon 05-27 Hematocrit (Bld) [Volume fraction] 22.1 % Low 35.0 - 47.0 % [facility] Hemoglobin.gastrointe stinal spec 1 Ql (Stl) 7.3 g/dL Low 11.7 - 16.0 g/dL [facility] Interpretation and review of laboratory results Abnormal [facility] MCH (RBC) [Entitic mass] 30.0 pg 26.0 - 34.0 pg [facility] MCHC (RBC) [Mass/Vol] 33.0 % 32.0 - 36.0 % [facility] MCV (RBC) [Entitic vol] 90.7 fL 79.0 - 98.0 fL [facility] Platelet distribution width (Bld) [Ratio] 18.8 % High 11.5 - 14.5 % [facility] Platelet mean volume (Bld) [Entitic vol] 6.6 fL Low 7.4 - 10.4 fL [facility] Platelets (Bld) [#/Vol] 567 10*3/uL High 140 - 440 10*3/uL [facility] RBC (Bld) [#/Vol] 2.44 10*6/uL Low 3.80 - 5.2 0 10*6/uL [facility] WBC (Bld) [#/Vol] 8.2 10*3/uL 3.6 - 10.7 10*3/uL [facility] Test Performed by [facility] [place] [facility], [address] [place] [id number] [facility] Hip w/ Pelvis 2 or 3 View s Lefton 06-15-2021 CR Hip w/ Pelvis 2 or 3 Views Left Patient Name: DEBRA COLE Diagnostic Radiology ACCESSION EXAM DATE/TIME PROCEDURE ORDERING PROVIDER [id number] 06/15/2021 18:09 EST CR Hip w/ Pelvis 2 or 3 MD VIZCARRA BLAKE Views Left n CPT code 74442 Reason For Exam (CR Hip w/ Pelvis 2 or 3 Views Left n) Left Hip Reduction Report PELVIS SINGLE VIEW AND LEFT HIP 2 VIEWS CLINICAL INDICATION: Left Hip Pain TECHNIQUE: Single, AP view of the pelvis and 2 views of the left hip obtained on 4021 at 1541 hours. COMPARISON: May,. 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 Surgical skin shama again noted over the lateral hip and Esparza catheter projects over the lower pelvis. Subsequent AP view of pelvis and 2 views of left hip obtained on May, at 1716 hours. This shows the left total hip arthroplasty normally relocated into left acetabulum. Ossific fragment projects anterior to the acetabular component on crosstable lateral view. No other significant interval change. IMPRESSION: 1. Status post left total hip arthroplasty, with initial superolateral dislocation and subsequent reduction. Report Dictated on Workstation: [email or web address] Final Dictated: 06/15/2021 5:49 pm Dictating Physician: MD YUAN WENDELL Signed Date and Time: 06/15/2021 5:55 pm Signed by: MD YUAN WENDELL Transcribed Date and Time: 06/15/2021 5:49 Normal [facility] CR Hip w/ Pelvis 2 or 3 Views Left Patient Name: EDBRA COLE Diagnostic Radiology ACCESSION EXAM DATE/TIME PROCEDURE ORDERING PROVIDER [id number] 06/15/2021 15:57 EST CR Hip w/ Pelvis 2 or 3 MD CARMITA, BRENT Views Left n CPT code 62833 Reason For Exam (CR Hip w/ Pelvis 2 or 3 Views Left n) Left Hip Pain Report PELVIS SINGLE VIEW AND LEFT HIP 2 VIEWS CLINICAL INDICATION: Left Hip Pain TECHNIQUE: Single, AP view of the pelvis and 2 views of the left hip obtained on 4021 at 1541 hours. COMPARISON: May,. 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 Surgical skin shama again noted over the lateral hip and Esparza catheter projects over the lower pelvis. Subsequent AP view of pelvis and 2 views of left hip obtained on May, at 1716 hours. This shows the left total hip arthroplasty normally relocated into left acetabulum. Ossific fragment projects anterior to the acetabular component on crosstable lateral view. No other significant interval change. IMPRESSION: 1. Status post left total hip arthroplasty, with initial superolateral dislocation and subsequent reduction. Report Dictated on Workstation: [email or web address] Final Dictated: 06/15/2021 5:49 pm Dictating Physician: MD YUAN WENDELL Signed Date and Time: 06/15/2021 5:55 pm Signed by: MD YUAN WENDELL Transcribed Date and Time: 06/15/2021 5:49 Normal [facility] Hemogram w/ Autodiffon 06-15 Erythrocyte distribution width (RBC) [Ratio] 18.8 % High 11.5-14.5 [facility] Comment on above: Performed By: #### H KELLY FENTON3 #### [address] Hematocrit (Bld) [Volume fraction] 22.1 % Low 35.0-47.0 [facility] Comment on above: Performed By: #### H KELLY FENTON3 #### [address] Hemoglobin (Bld) [Mass/Vol] 7.3 g/dL Low 11.7-16.0 [facility] Comment on above: Performed By: #### H KELLY FENTON3 #### [address] [place], [place] MCH (RBC) [Entitic mass] 30.0 pg Normal 26.0-34.0 [facility] Comment on above: Performed By: #### H JOSSY BMP3 #### [facility] [address] [place], [place] MCHC 33.0 % Normal 32.0-36.0 [facility] Comment on above: Performed By: #### H JOSSY BMP3 #### [address] [place], [place] MCV (RBC) [Entitic vol] 90.7 fL Normal 79.0-98.0 [facility] Comment on above: Performed By: #### H JOSSY BMP3 #### [address] [place], [place] Platelet mean volume (Bld) [Entitic vol] 6.6 fL Low 7.4-10.4 [facility] Comment on above: Performed By: #### H JOSSY BMP3 #### [address] [place], [place] Platelets (Bld) [#/Vol] 567 10*3/uL High 140-440 [facility] Comment on above: Performed By: #### H JOSSY BMP3 #### [address] [place], [place] RBC (Bld) [#/Vol] 2.44 10*6/uL Low 3.80-5.20 [facility] Comment on above: Performed By: #### H JOSSY BMP3 #### [address] [place], [place] WBC (Bld) [#/Vol] 8.2 10*3/uL Normal 3.6-10.7 [facility] Comment on above: Performed By: #### H JOSSY BMP3 #### [address] [place], [place] Manual Diffon 06-15-2021 Abs Lymph Cnt 1.4 10*3/uL Normal 1.1-4.5 [facility] Comment on above: Performed By: #### H EMDF, BMP3 #### [facility] [address] [place], [place] Abs Monocyte Cnt 0.4 10*3/uL Normal 0.2-1.1 [facility] Comment on above: Performed By: #### H EMDF, BMP3 #### [facility] [address] [place], [place] Abs Neutrophile Cnt 6.4 10*3/uL Normal 2.2-8.2 [facility] Comment on above: Performed By: #### H EMDF, BMP3 #### [facility] [address] [place], [place] Anisocytosis Slight Normal [facility] Comment on above: Performed By: #### H EMDF, BMP3 #### [address] [address] [place], [place] Bands 15 % High 0-3 [facility] Comment on above: Performed By: #### H EMDF, BMP3 #### [facility] [address] [place], [place] Lymphocytes 17 % Low 20-40 [facility] Comment on above: Performed By: #### H EMDF, BMP3 #### [address] [address] [place], [place] Monocytes 5 % Normal 2-10 [facility] Comment on above: Performed By: #### H EMDF, BMP3 #### [facility] [address] [place] Ovalocytes Slight Normal [facility] Comment on above: Performed By: #### H EMDF, BMP3 #### [facility] [address] [place], [place] Poikilocytosis Slight Normal [facility] Comment on above: Performed By: #### H EMDF, BMP3 #### [facility] [address] [place] Polychromasia Slight Normal [facility] Comment on above: Performed By: #### H EMDF, BMP3 #### [address] [address] [place], [place] RBC Morphology ABNORMAL Normal [facility] Comment on above: Performed By: #### H EMDF, BMP3 #### [address] [address] [place], [place] Seg Neutrophils 63 % Normal 40-80 [facility] Comment on above: Performed By: #### H EMDF, BMP3 #### [address] [place], [place] Abs Baso Cnt 0.0 10*3/uL Normal 0.0-0.2 [facility] Comment on above: Performed By: #### H EMDF, BMP3 #### [address] [address] [place], [place] Abs Eosin Cnt 0.0 10*3/uL Normal 0.0-0.5 [facility] Comment on above: Performed By: #### H EMDF, BMP3 #### [address] [address] [place], [place] Basophils 0 % Normal 0-2 [facility] Comment on above: Performed By: #### H EMDF, BMP3 #### [address] [address] [place], [place] Cells counted 100 Normal [facility] Comment on above: Performed By: #### H EMDF, BMP3 #### [address] [address] [place], [place] Eosinophils 0 % Low 1-6 [facility] Comment on above: Performed By: #### H EMDF, BMP3 #### [address] [address] [place], [place] Manual Differentialon 2021 Absolute Baso # 0.0 10*3/uL 0.0 - 0.2 10*3/uL [facility] Absolute Eos # 0.0 10*3/uL 0.0 - 0.5 10*3/uL [facility] Absolute Lymph # 1.4 10*3/uL 1.1 - 4.5 10*3/uL [facility] Absolute [place] # 0.4 10*3/uL 0.2 - 1.1 10*3/uL [facility] Absolute Neut # 6.4 10*3/uL 2.2 - 8.2 10*3/uL [facility] Anisocytosis Slight [facility] Bands 15 % High 0 - 3 % [facility] Basophils/100 WBC (Bld) 0 % 0 - 2 % [facility] Eosinophils/100 WBC (Bld) 0 % Low 1 - 6 % [facility] Interpretation and review of laboratory results Abnormal [facility] Lymphocytes/100 WBC (Bld) 17 % Low 20 - 40 % [facility] Monocytes/100 WBC (Bld) 5 % 2 - 10 % [facility] Ovalocytes Slight [facility] Poikilocytes Slight [facility] Polychromasia Slight [facility] RBC (Bld) [#/Vol] ABNORMAL [facility] Seg Neutrophils 63 % 40 - 80 % [facility] TOTAL CELLS COUNTED 100 [facility] Test Performed by [address] [address] [facility] No Panel Informationon 06-15 Radiology Study observation (narrative) [facility] Work Phone: XR HIP LEFT (2-3 VIEWS)on Patient Name: DEBRA CONNER Diagnostic Radiology ACCESSION EXAM DATE/TIME PROCEDURE ORDERING PROVIDER [id number] 06/15/2021 15:57 EST CR Hip w/ Pelvis 2 or 3 MD CARMITA, BRENT Views Left n CPT code 39888 Reason For Exam (CR Hip w/ Pelvis 2 or 3 Views Left n) Left Hip Pain Report PELVIS SINGLE VIEW AND LEFT HIP 2 VIEWS CLINICAL INDICATION: Left Hip Pain TECHNIQUE: Single, AP view of the pelvis and 2 views of the left hip obtained on 4021 at 1541 hours. COMPARISON: May,. 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 Surgical skin shama again noted over the lateral hip and Esparza catheter projects over the lower pelvis. Subsequent AP view of pelvis and 2 views of left hip obtained on May, at 1716 hours. This shows the left total hip arthroplasty normally relocated into left acetabulum. Ossific fragment projects anterior to the acetabular component on crosstable lateral view. No other significant interval change. IMPRESSION: 1. Status post left total hip arthroplasty, with initial superolateral dislocation and subsequent reduction. Report Dictated on Workstation: [email or web address] --- Final --- Dictated: 06/15/2021 5:49 pm Dictating Physician: MD YUAN WENDELL Signed Date and Time: 06/15/2021 5:55 pm Signed by: MD YUAN WENDELL Transcribed Date and Time: 06/15/2021 5:49 [facility] Dariel Yuan MD - 06/15/2021 Patient Name: DEBRA COLE Diagnostic Radiology ACCESSION EXAM DATE/TIME PROCEDURE ORDERING PROVIDER [id number] 06/15/2021 15:57 EST CR Hip w/ Pelvis 2 or 3 MD VIZCARRA BLAKE Views Left n CPT code 11885 Reason For Exam (CR Hip w/ Pelvis 2 or 3 Views Left n) Left Hip Pain Report PELVIS SINGLE VIEW AND LEFT HIP 2 VIEWS CLINICAL INDICATION: Left Hip Pain TECHNIQUE: Single, AP view of the pelvis and 2 views of the left hip obtained on 4021 at 1541 hours. COMPARISON: May,. 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 Surgical skin shama again noted over the lateral hip and Esparza catheter projects over the lower pelvis. Subsequent AP view of pelvis and 2 views of left hip obtained on May, at 1716 hours. This shows the left total hip arthroplasty normally relocated into left acetabulum. Ossific fragment projects anterior to the acetabular component on crosstable lateral view. No other significant interval change. IMPRESSION: 1. Status post left total hip arthroplasty, with initial superolateral dislocation and subsequent reduction. Report Dictated on Workstation: [email or web address] --- Final --- Dictated: 06/15/2021 5:49 pm Dictating Physician: MD YUAN WENDELL Signed Date and Time: 06/15/2021 5:55 pm Signed by: MD YUAN WENDELL Transcribed Date and Time: 06/15/2021 5:49 [facility] Work Phone: [facility] Work Phone: Patient Name: DEBRA RAMIREZ Diagnostic Radiology ACCESSION EXAM DATE/TIME PROCEDURE ORDERING PROVIDER [id number] 06/15/2021 18:09 EST CR Hip w/ Pelvis 2 or 3 MD VIZCARRA BLAKE Views Left n CPT code 26676 Reason For Exam (CR Hip w/ Pelvis 2 or 3 Views Left n) Left Hip Reduction Report PELVIS SINGLE VIEW AND LEFT HIP 2 VIEWS CLINICAL INDICATION: Left Hip Pain TECHNIQUE: Single, AP view of the pelvis and 2 views of the left hip obtained on 4021 at 1541 hours. COMPARISON: May,. 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 Surgical skin shama again noted over the lateral hip and Esparza catheter projects over the lower pelvis. Subsequent AP view of pelvis and 2 views of left hip obtained on May, at 1716 hours. This shows the left total hip arthroplasty normally relocated into left acetabulum. Ossific fragment projects anterior to the acetabular component on crosstable lateral view. No other significant interval change. IMPRESSION: 1. Status post left total hip arthroplasty, with initial superolateral dislocation and subsequent reduction. Report Dictated on Workstation: [email or web address] --- Final --- Dictated: 06/15/2021 5:49 pm Dictating Physician: MD YUAN WENDELL Signed Date and Time: 06/15/2021 5:55 pm Signed by: MD YUAN WENDELL Transcribed Date and Time: 06/15/2021 5:49 [facility] - 06/15/2021 Patient Name: DEBRA COLE Diagnostic Radiology ACCESSION EXAM DATE/TIME PROCEDURE ORDERING PROVIDER [id number] 06/15/2021 18:09 EST CR Hip w/ Pelvis 2 or 3 MD VIZCARAR BLAKE Views Left n CPT code 23599 Reason For Exam (CR Hip w/ Pelvis 2 or 3 Views Left n) Left Hip Reduction Report PELVIS SINGLE VIEW AND LEFT HIP 2 VIEWS CLINICAL INDICATION: Left Hip Pain TECHNIQUE: Single, AP view of the pelvis and 2 views of the left hip obtained on 4021 at 1541 hours. COMPARISON: May,. 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 Surgical skin shama again noted over the lateral hip and Esparza catheter projects over the lower pelvis. Subsequent AP view of pelvis and 2 views of left hip obtained on May, at 1716 hours. This shows the left total hip arthroplasty normally relocated into left acetabulum. Ossific fragment projects anterior to the acetabular component on crosstable lateral view. No other significant interval change. IMPRESSION: 1. Status post left total hip arthroplasty, with initial superolateral dislocation and subsequent reduction. Report Dictated on Workstation: [email or web address] --- Final --- Dictated: 06/15/2021 5:49 pm Dictating Physician: MD YUAN WENDELL Signed Date and Time: 06/15/2021 5:55 pm Signed by: MD YUAN WENDELL Transcribed Date and Time: 06/15/2021 5:49 [facility] Work Phone: [facility] Work Phone: Basic Metabolic Panelon 02-2 Calcium [Mass/Vol] 7.8 mg/dL Low 8.4-10.4 [facility] Comment on above: Performed By: #### H KELLY FENTON3 #### [facility] [address] [place], [place] Glucose [Mass/Vol] 92 mg/dL Normal 70-100 [facility] Comment on above: Performed By: #### H KELLY FENTON3 #### [facility] [address] [place], [place] Anion gap [Moles/Vol] 1 mmol/L Low 3-13 [facility] Comment on above: Performed By: #### H JOSSY BMP3 #### [facility] [address] [place], [place] CO2 [Moles/Vol] 29 mmol/L Normal 22-30 [facility] Comment on above: Performed By: #### H JOSSY BMP3 #### [address] Creatinine [Mass/Vol] 0.74 mg/dL Normal 0.52-1.25 [facility] Comment on above: Performed By: #### H JOSSY BMP3 #### [address] GFR/1.73 sq M.predicted among blacks MDRD (S/P/Bld) [Vol rate/Area] 88.5 mL/min/{1.73_m2} Normal >60 [facility] Comment on above: Performed By: #### H JOSSY BMP3 #### [address] GFR/1.73 sq M.predicted among non-blacks MDRD (S/P/Bld) [Vol rate/Area] 76.4 mL/min/{1.73_m2} Normal >60 [facility] Comment on above: Result Comment: KDIG O guidelines provide the following GFR categories: Stage GFR(ml/min/1.73 m2) Terms G1 >=90 Normal or high G2 60-89 Mildly decreased* G3a 45-59 Mildly to moderately decreased G3b 30-44 Moderately to severely decreased G4 15-29 Severely decreased G5 <15 Kidney failure *Relative to young adult level. In the absence of evidence of kidney damage, neither GFR category G1 nor G2 fulfill the criteria for CKD. The CKD-EPI equation is validated in individuals 18 years of age and older. Currently the best equation for estimating glomerular filtration rate (GFR) from serum creatinine in children is the Bedside Matamoros equation. It is less accurate in patients with extremes of muscle mass, restriction of dietary protein, ingestion of creatine, extra-renal metabolism of creatinine, or treatment with medications that affect renal tubular creatinine secretion. Performed By: #### H JOSSY BMP3 #### [address] Urea nitrogen [Mass/Vol] 27 mg/dL High 9-20 [facility] Comment on above: Performed By: #### H EMDF, BMP3 #### [facility] [address] [place] [address] Chloride [Moles/Vol] 99 mmol/L Normal 98-107 [facility] Comment on above: Performed By: #### H KELLY FENTON3 #### [facility] [address] [place] [address] Potassium [Moles/Vol] 4.4 mmol/L Normal 3.5-5.1 [facility] Comment on above: Performed By: #### H KELLY FENTON3 #### [facility] [address] [place] [address] Sodium [Moles/Vol] 129 mmol/L Low 135-145 [facility] Comment on above: Performed By: #### H KELLY FENTON3 #### [facility] [address] [place] [address] Anion gap [Moles/Vol] 1 mmol/L Low 3 - 13 mmol/L [facility] Calcium [Mass/Vol] 7.8 mg/dL Low 8.4 - 10. 4 mg/dL [facility] Chloride [Moles/Vol] 99 mmol/L 98 - 10 7 mmol/L [facility] CO2 [Moles/Vol] 29 mmol/L 22 - 30 mmol/L [facility] Creatinine [Mass/Vol] 0.74 mg/dL 0.52 - 1.25 mg/dL [facility] EGFR IF NonAfrican Saudi Arabian 76.4 mL/min >60 [facility] Comment on above: KDIGO guidelines pro vide the following GFR categories: Stage GFR(ml/min/1.73 m2) Terms G1 >=90 Normal or high G2 60-89 Mildly decreased* G3a 45-59 Mildly to moderately decreased G3b 30-44 Moderately to severely decreased G4 15-29 Severely decreased G5 <15 Kidney failure *Relative to young adult level. In the absence of evidence of kidney damage, neither GFR category G1 nor G2 fulfill the criteria for CKD. The CKD-EPI equation is validated in individuals 18 years of age and older. Currently the best equation for estimating glomerular filtration rate (GFR) from serum creatinine in children is the Bedside Matamoros equation. It is less accurate in patients with extremes of muscle mass, restriction of dietary protein, ingestion of creatine, extra-renal metabolism of creatinine, or treatment with medications that affect renal tubular creatinine secretion. GFR/1.73 sq M.predicted among blacks MDRD (S/P/Bld) [Vol rate/Area] 88.5 mL/min/{1.73_m2} >60 [facility] Glucose [Mass/Vol] 92 mg/dL 70 - 100 mg/dL [facility] Interpretation and review of laboratory results Abnormal [facility] Potassium [Moles/Vol] 4.4 mmol/L 3.5 - 5.1 mmol/L [facility] Sodium [Moles/Vol] 129 mmol/L Low 135 - 145 mmol/L [facility] Urea nitrogen (BldV) [Mass/Vol] 27 mg/dL High 9 - 20 mg/dL [facility] Test Performed by [id number] [place] [address] LAB [facility] CBC Auto Differentialon 05-27 Absolute Baso # 0.1 10*3/uL 0.0 - 0.2 10*3/uL [facility] Absolute Neut # 4.7 10*3/uL 1.8 - 7.0 10*3/uL [facility] Basophils/100 WBC (Bld) 1.1 % 0.0 - 2.0 % [facility] Eosinophils (Bld) [#/Vol] 0.2 10*3/uL 0.0 - 0.5 10*3/uL [facility] Eosinophils/100 WBC (Bld) 2.5 % 1.0 - 6.0 % [facility] Granulocytes/100 WBC (Bld) 67.3 % 40.0 - 80.0 % [facility] Hematocrit (Bld) [Volume fraction] 21.2 % Low 35.0 - 47.0 % [facility] Hemoglobin.gastrointe stinal spec 1 Ql (Stl) 7.2 g/dL Low 11.7 - 16.0 g/dL [facility] Interpretation and review of laboratory results Abnormal [facility] Lymphocytes (Bld) [#/Vol] 1.4 10*3/uL 1.0 - 4.3 10*3/uL [facility] Lymphocytes/100 WBC (Bld) 19.6 % Low 20.0 - 40.0 % [facility] MCH (RBC) [Entitic mass] 30.4 pg 26.0 - 34.0 pg [facility] MCHC (RBC) [Mass/Vol] 33.7 % 32.0 - 36.0 % [facility] MCV (RBC) [Entitic vol] 90.2 fL 79.0 - 98.0 fL [facility] Monocytes (Bld) [#/Vol] 0.7 10*3/uL 0.0 - 0.8 10*3/uL [facility] Monocytes/100 WBC (Bld) 9.5 % 2.0 - 10.0 % [facility] Platelet distribution width (Bld) [Ratio] 18.7 % High 11.5 - 14.5 % [facility] Platelet mean volume (Bld) [Entitic vol] 7.0 fL Low 7.4 - 10.4 fL [facility] Platelets (Bld) [#/Vol] 517 10*3/uL High 140 - 440 10*3/uL [facility] RBC (Bld) [#/Vol] 2.36 10*6/uL Low 3.80 - 5.2 0 10*6/uL [facility] WBC (Bld) [#/Vol] 7.0 10*3/uL 3.6 - 10.7 10*3/uL [facility] Test Performed by [id number] [place] [address] LAB [facility] Hemogram w/ Autodiffon 06-14 Abs Baso Cnt 0.1 10*3/uL Normal 0.0-0.2 [facility] Comment on above: Performed By: #### H JOSSY BMP3 #### [address] [address] Abs Neutrophile Cnt 4.7 10*3/uL Normal 1.8-7.0 [facility] Comment on above: Performed By: #### H EMDF BMP3 #### [address] [address] Basophils/100 WBC (Bld) 1.1 % Normal 0.0-2.0 [facility] Comment on above: Performed By: #### H EMDOswaldo, BMP3 #### [address] [address] Eosinophils (Bld) [#/Vol] 0.2 10*3/uL Normal 0.0-0.5 [facility] Comment on above: Performed By: #### H EMDF, BMP3 #### [facility] [address] [place] [address] Eosinophils/100 WBC (Bld) 2.5 % Normal 1.0-6.0 [facility] Comment on above: Performed By: #### H EMDF, BMP3 #### [facility] [address] [place], [place] Erythrocyte distribution width (RBC) [Ratio] 18.7 % High 11.5-14.5 [facility] Comment on above: Performed By: #### H EMDF, BMP3 #### [facility] [address] [place] [address] Granulocytes/100 WBC (Bld) 67.3 % Normal 40.0-80.0 [facility] Comment on above: Performed By: #### H EMDF, BMP3 #### [address] [address] [address] [place], [place] Hematocrit (Bld) [Volume fraction] 21.2 % Low 35.0-47.0 [facility] Comment on above: Performed By: #### H EMDF, BMP3 #### [address] [address] [address] [place], [place] Hemoglobin (Bld) [Mass/Vol] 7.2 g/dL Low 11.7-16.0 [facility] Comment on above: Performed By: #### H EMDF, BMP3 #### [facility] [address] [place], [place] Lymphocytes (Bld) [#/Vol] 1.4 10*3/uL Normal 1.0-4.3 [facility] Comment on above: Performed By: #### H EMDF, BMP3 #### [facility] [address] [place] [address] Lymphocytes/100 WBC (Bld) 19.6 % Low 20.0-40.0 [facility] Comment on above: Performed By: #### H EMDF, BMP3 #### [facility] [address] [place], [place] MCH (RBC) [Entitic mass] 30.4 pg Normal 26.0-34.0 [facility] Comment on above: Performed By: #### H EMDF, BMP3 #### [facility] [address] [place], [place] MCHC 33.7 % Normal 32.0-36.0 [facility] Comment on above: Performed By: #### H EMDF, BMP3 #### [address] [address] [address] [place], [place] MCV (RBC) [Entitic vol] 90.2 fL Normal 79.0-98.0 [facility] Comment on above: Performed By: #### H EMDF, BMP3 #### [address] [address] [place], [place] Monocytes (Bld) [#/Vol] 0.7 10*3/uL Normal 0.0-0.8 [facility] Comment on above: Performed By: #### H EMDF BMP3 #### [address] [address] [address] [place], [place] Monocytes/100 WBC (Bld) 9.5 % Normal 2.0-10.0 [facility] Comment on above: Performed By: #### H EMDF BMP3 #### [address] [address] [place], [place] Platelet mean volume (Bld) [Entitic vol] 7.0 fL Low 7.4-10.4 [facility] Comment on above: Performed By: #### H EMDF, BMP3 #### [address] [address] [address] [place], [place] Platelets (Bld) [#/Vol] 517 10*3/uL High 140-440 [facility] Comment on above: Performed By: #### H EMDF, BMP3 #### [address] RBC (Bld) [#/Vol] 2.36 10*6/uL Low 3.80-5.20 [facility] Comment on above: Performed By: #### H EMDF, BMP3 #### [address] [address] [place], [place] WBC (Bld) [#/Vol] 7.0 10*3/uL Normal 3.6-10.7 [facility] Comment on above: Performed By: #### H BETH FENTON #### [facility] [facility] [address] [facility] [place] [address] VL LOWER EXTREMITY BILATERAL VENOUS DUPLEXon 06-14-2021 [facility] Lower Extremity Venous Duplex Report Patient Kelsey, : 1940 Study 06/14/2021 Name: Debra Paz (81yrs) Date: Patient [id number] Age: 81 Account: [id number] ID: Gender: F Loc: 6113 BP: Ordering Physician: Heri Redd Repairer Veneer Sheet: Jeff Vizcarra RVT Interpreting Physician: Fernando Mccord M.D. Location: [facility] Indications: Edema right calf. Edema left calf. Conclusions 1. There is no evidence of acute deep or superficial venous thrombosis noted in the right lower extremity. 2. There is no evidence of acute deep or superficial venous thrombosis noted in the left lower extremity. 3. Limited study bilateral History: Risk factors: Former tobacco use. Bedrest Age over 75 years. Study data: Complete lower extremity venous duplex evaluation. Grayscale 2D imaging, color Doppler imaging, and spectral Doppler analysis. Location: Vascular laboratory. Procedure: A vascular evaluation was performed with the patient in the supine position. Images were obtained using a [employer] vascular ultrasound machine. Venous flow and imaging: + +------ --------+ ----+ + +Location +Overall +Properties +Comments + + +------ --------+ ----+ + +R CFV +Patent +Normal phasicity; + + + + +spontaneous; normal+ + + + +augmentation; + + + + +compressible + + + +------ --------+ ----+ + +R saphenofemoral+Patent +Compressible + + +junction + + + + + +------ --------+ ----+ + +R profunda +Patent +Spontaneous + + +femoral + + + + + +------ --------+ ----+ + +R FV - prox. +Patent +Compressible +Visualized in + + + + +segments due to + + + + +catheter + + + + +stabilizer. + + +------ --------+ ----+ + +R FV - mid +Patent +Normal phasicity; + + + + +spontaneous; normal+ + + + +augmentation; + + + + +compressible + + + +------ --------+ ----+ + +R FV - distal +Patent +Compressible + + + +------ --------+ ----+ + +R popliteal +Patent +Normal phasicity; + + + + +spontaneous; normal+ + + + +augmentation; + + + + +compressible + + + +------ --------+ ----+ + +R gastrocnemius +Patent +Compressible + + + +------ --------+ ----+ + +R PTV +Patent +Compressible + + + +------ --------+ ----+ + +R peroneal +Patent +Compressible + + + +------ --------+ ----+ + +R soleal +Patent +Compressible + + + +------ --------+ ----+ + +R GSV +Patent +Compressible +Visualized in + + + + +segments due to + + + + +catheter + + + + (more content not included)... [facility] Fernando Mccord MD - 06/14/2021 [facility] Lower Extremity Venous Duplex Report Patient Kelsey, : 1940 Study 06/14/2021 Name: Debra Paz (81yr) Date: Patient [id number] Age: 81 Account: [id number] ID: Gender: F Loc: 6113 BP: Ordering Physician: Heri Redd Repairer Veneer Sheet: Jeff Vizcarra RVT Interpreting Physician: Fernando Mccord M.D. Location: [facility] Indications: Edema right calf. Edema left calf. Conclusions 1. There is no evidence of acute deep or superficial venous thrombosis noted in the right lower extremity. 2. There is no evidence of acute deep or superficial venous thrombosis noted in the left lower extremity. 3. Limited study bilateral History: Risk factors: Former tobacco use. Bedrest Age over 75 years. Study data: Complete lower extremity venous duplex evaluation. Grayscale 2D imaging, color Doppler imaging, and spectral Doppler analysis. Location: Vascular laboratory. Procedure: A vascular evaluation was performed with the patient in the supine position. Images were obtained using a [employer] vascular ultrasound machine. Venous flow and imaging: + +------ --------+ ----+ + +Location +Overall +Properties +Comments + + +------ --------+ ----+ + +R CFV +Patent +Normal phasicity; + + + + +spontaneous; normal+ + + + +augmentation; + + + + +compressible + + + +------ --------+ ----+ + +R saphenofemoral+Patent +Compressible + + +junction + + + + + +------ --------+ ----+ + +R profunda +Patent +Spontaneous + + +femoral + + + + + +------ --------+ ----+ + +R FV - prox. +Patent +Compressible +Visualized in + + + + +segments due to + + + + +catheter + + + + +stabilizer. + + +------ --------+ ----+ + +R FV - mid +Patent +Normal phasicity; + + + + +spontaneous; normal+ + + + +augmentation; + + + + +compressible + + + +------ --------+ ----+ + +R FV - distal +Patent +Compressible + + + +------ --------+ ----+ + +R popliteal +Patent +Normal phasicity; + + + + +spontaneous; normal+ + + + +augmentation; + + + + +compressible + + + +------ --------+ ----+ + +R gastrocnemius +Patent +Compressible + + + +------ --------+ ----+ + +R PTV +Patent +Compressible + + + +------ --------+ ----+ + +R peroneal +Patent +Compressible + + + +------ --------+ ----+ + +R soleal +Patent +Compressible + + + +------ --------+ ----+ + +R GSV +Patent +Compressible +Visualized in + + + + +segments due to + + + + +catheter + + + + +stabilizer. + + +------ --------+ ----+ + +L CFV +Patent with +Normal phasicity; +Did not compress + + +color flow and+spontaneous; normal+due to patient + + +Doppler +augmentation +tolerance. + + +imaging + + + + +------ --------+ ----+ + +L saphenofemoral+Patent +Compressible + + +junction + + + + + +------ --------+ ----+ + +L profunda +Patent +Spontaneous + + +femoral + + + + + +------ --------+ ----+ + +L FV - prox. +Patent +Compressible + + + +------ --------+ ----+ + +L FV - mid +Patent +Normal phasicity; + + + + +spontaneous; normal+ + + + +augmentation; + + + + +compressible + + + +------ --------+ ----+ + +L FV - distal +Patent +Compressible + + + +------ --------+ ----+---- (more content not included)... [employer] Work Phone: Radiology Study observation (narrative) [employer] Work Phone: VL LOWER EXTREMITY BILATERAL VENOUS DUPLEXOrdered By: Fernando Mccord on 06-14-2021 [employer] Phone: VL Venous Duplex US Lower Ex t Bilateralon 06-14-2021 VL Venous Duplex US Lower Ext Bilateral Patient Name: DEBRA COLE Ultrasound ACCESSION EXAM DATE/TIME PROCEDURE ORDERING PROVIDER [id number] 06/14/2021 12:21 EST VL Venous Duplex US DO REDD YAZID R Lower Ext Bilateral CPT code 75905 Reason For Exam (VL Venous Duplex US Lower Ext Bilateral) leg edema bilaterally, recent surgery Report [facility] Lower Extremity Venous Duplex Report Patient Kelsey : 1940 Study 06/14/2021 Name: Debra Paz (81yrs) Date: Patient [id number] Age: 81 Account: [id number] ID: Gender: F Loc: 6113 BP: Ordering Physician: Heri Redd Repairer Veneer Sheet: Jeff Vizcarra RVT Interpreting Physician: Fernando Mccord M.D. Location: [facility] Indications: Edema right calf. Edema left calf. Conclusions 1. There is no evidence of acute deep or superficial venous thrombosis noted in the right lower extremity. 2. There is no evidence of acute deep or superficial venous thrombosis noted in the left lower extremity. 3. Limited study bilateral History: Risk factors: Former tobacco use. Bedrest Age over 75 years. Study data: Complete lower extremity venous duplex evaluation. Grayscale 2D imaging, color Doppler imaging, and spectral Doppler analysis. Location: Vascular laboratory. Procedure: A vascular evaluation was performed with the patient in the supine position. Images were obtained using a [employer] vascular ultrasound machine. Ultrasound Report Venous flow and imaging: + +------ --------+ ----+ + +Location +Overall +Properties +Comments + + +------ --------+ ----+ + +R CFV +Patent +Normal phasicity; + + + + +spontaneous; normal+ + + + +augmentation; + + + + +compressible + + + +------ --------+ ----+ + +R saphenofemoral+Patent +Compressible + + +junction + + + + + +------ --------+ ----+ + +R profunda +Patent +Spontaneous + + +femoral + + + + + +------ --------+ ----+ + +R FV - prox. +Patent +Compressible +Visualized in + + + + +segments due to + + + + +catheter + + + + +stabilizer. + + +------ --------+ ----+ + +R FV - mid +Patent +Normal phasicity; + + + + +spontaneous; normal+ + + + +augmentation; + + + + +compressible + + + +------ --------+ ----+ + +R FV - distal +Patent +Compressible + + + +------ --------+ ----+ + +R popliteal +Patent +Normal phasicity; + + + + +spontaneous; normal+ + + + +augmentation; + + + + +compressible + + + +------ --------+ ----+ + +R gastrocnemius +Patent +Compressible + + + +------ --------+ ----+ + +R PTV +Patent +Compressible + + + +------ --------+ ----+ + +R peroneal +Patent +Compressible + + + +------ --------+ ----+ + +R soleal +Patent +Compressible + + + +------ --------+ ----+ + +R GSV +Patent +Compressible +Visualized in + + + + +segments due to + + + + +catheter + + + + +stabilizer. + + +------ --------+ ----+ + +L CFV +Patent with +Normal phasicity; +Did not compress + + +color flow and+spontaneous; normal+due to patient + + +Doppler +augmentation +tolerance. + + +imaging + + + + +------ --------+ ----+ + +L saphenofemoral+Patent +Compressible + + +junction + + + + + +------ --------+ ----+ + +L profunda +Patent +Spontaneous + + +femoral + + + + + +------ --------+ ----+ + +L FV - prox. +Patent +Compressible + + + +------ --------+ ----+ + +L FV - mid +Patent +Normal phasicity; + (more content not included)... Normal [facility] Basic Metabolic Panelon 05-26 Anion gap [Moles/Vol] 3 mmol/L Normal 3-13 [facility] Comment on above: Performed By: #### H JOSSY, BMP3 #### [facility] [employer] [address] [address] Sodium [Moles/Vol] 129 mmol/L Low 135-145 [facility] Comment on above: Performed By: #### H JOSSY BMP3 #### [facility] [address] [place], [place] Calcium [Mass/Vol] 8.4 mg/dL Normal 8.4-10.4 [facility] Comment on above: Performed By: #### H JOSSY BMP3 #### [facility] [address] [place], [place] CO2 [Moles/Vol] 27 mmol/L Normal 22-30 [facility] Comment on above: Performed By: #### H JOSSY BMP3 #### [address] [address] [place], [place] Creatinine [Mass/Vol] 0.67 mg/dL Normal 0.52-1.25 [facility] Comment on above: Performed By: #### H JOSSY BMP3 #### [address] [address] [place], [place] GFR/1.73 sq M.predicted among blacks MDRD (S/P/Bld) [Vol rate/Area] mL/min/{1.73_m2} Normal >60 [facility] Comment on above: Performed By: #### H JOSSY BMP3 #### [facility] [address] [place], [place] GFR/1.73 sq M.predicted among non-blacks MDRD (S/P/Bld) [Vol rate/Area] 82.9 mL/min/{1.73_m2} Normal >60 [facility] Comment on above: Result Comment: KDIG O guidelines provide the following GFR categories: Stage GFR(ml/min/1.73 m2) Terms G1 >=90 Normal or high G2 60-89 Mildly decreased* G3a 45-59 Mildly to moderately decreased G3b 30-44 Moderately to severely decreased G4 15-29 Severely decreased G5 <15 Kidney failure *Relative to young adult level. In the absence of evidence of kidney damage, neither GFR category G1 nor G2 fulfill the criteria for CKD. The CKD-EPI equation is validated in individuals 18 years of age and older. Currently the best equation for estimating glomerular filtration rate (GFR) from serum creatinine in children is the Bedside Matamoros equation. It is less accurate in patients with extremes of muscle mass, restriction of dietary protein, ingestion of creatine, extra-renal metabolism of creatinine, or treatment with medications that affect renal tubular creatinine secretion. Performed By: #### H JOSSY BMP3 #### [facility] [address] [place] [address] Glucose [Mass/Vol] 114 mg/dL High 70-100 [facility] Comment on above: Performed By: #### H JOSSY BMP3 #### [facility] [address] [place] [address] Urea nitrogen [Mass/Vol] 28 mg/dL High 9-20 [facility] Comment on above: Performed By: #### H JOSSY BMP3 #### [facility] [address] [place] [address] Chloride [Moles/Vol] 99 mmol/L Normal 98-107 [facility] Comment on above: Performed By: #### H JOSSY BMP3 #### [facility] [address] [place] [address] Potassium [Moles/Vol] 4.1 mmol/L Normal 3.5-5.1 [facility] Comment on above: Performed By: #### H JOSSY BMP3 #### [facility] [address] [place] [address] Anion gap [Moles/Vol] 3 mmol/L 3 - 13 mmol/L [facility] Calcium [Mass/Vol] 8.4 mg/dL 8.4 - 10. 4 mg/dL [facility] Chloride [Moles/Vol] 99 mmol/L 98 - 10 7 mmol/L [facility] CO2 [Moles/Vol] 27 mmol/L 22 - 30 mmol/L [facility] Creatinine [Mass/Vol] 0.67 mg/dL 0.52 - 1.25 mg/dL [facility] EGFR IF NonAfrican [place] 82.9 mL/min >60 [facility] Comment on above: KDIGO guidelines pro vide the following GFR categories: Stage GFR(ml/min/1.73 m2) Terms G1 >=90 Normal or high G2 60-89 Mildly decreased* G3a 45-59 Mildly to moderately decreased G3b 30-44 Moderately to severely decreased G4 15-29 Severely decreased G5 <15 Kidney failure *Relative to young adult level. In the absence of evidence of kidney damage, neither GFR category G1 nor G2 fulfill the criteria for CKD. The CKD-EPI equation is validated in individuals 18 years of age and older. Currently the best equation for estimating glomerular filtration rate (GFR) from serum creatinine in children is the Bedside Matamoros equation. It is less accurate in patients with extremes of muscle mass, restriction of dietary protein, ingestion of creatine, extra-renal metabolism of creatinine, or treatment with medications that affect renal tubular creatinine secretion. GFR/1.73 sq M.predicted among blacks MDRD (S/P/Bld) [Vol rate/Area] mL/min/{1.73_m2} >60 mL/min [facility] Glucose [Mass/Vol] 114 mg/dL High 70 - 100 mg/dL [facility] Interpretation and review of laboratory results Abnormal [facility] Potassium [Moles/Vol] 4.1 mmol/L 3.5 - 5.1 mmol/L [facility] Sodium [Moles/Vol] 129 mmol/L Low 135 - 145 mmol/L [facility] Urea nitrogen (BldV) [Mass/Vol] 28 mg/dL High 9 - 20 mg/dL [facility] Test Performed by [address] LAB [facility] Calcium [Mass/Vol] 8.1 mg/dL Low 8.4-10.4 [facility] Comment on above: Performed By: #### H KELLY FENTON3 #### [address] Anion gap [Moles/Vol] 0 mmol/L Low 3-13 [facility] Comment on above: Performed By: #### H KELLY FENTON3 #### [address] CO2 [Moles/Vol] 28 mmol/L Normal 22-30 [facility] Comment on above: Performed By: #### H KELLY FENTON3 #### [address] Creatinine [Mass/Vol] 0.68 mg/dL Normal 0.52-1.25 [facility] Comment on above: Performed By: #### H KELLY FENTON3 #### [facility] [address] [place] [address] GFR/1.73 sq M.predicted among blacks MDRD (S/P/Bld) [Vol rate/Area] mL/min/{1.73_m2} Normal >60 [facility] Comment on above: Performed By: #### H JOSSY BMP3 #### [facility] [address] [place] [address] GFR/1.73 sq M.predicted among non-blacks MDRD (S/P/Bld) [Vol rate/Area] 82.5 mL/min/{1.73_m2} Normal >60 [facility] Comment on above: Result Comment: KDIG O guidelines provide the following GFR categories: Stage GFR(ml/min/1.73 m2) Terms G1 >=90 Normal or high G2 60-89 Mildly decreased* G3a 45-59 Mildly to moderately decreased G3b 30-44 Moderately to severely decreased G4 15-29 Severely decreased G5 <15 Kidney failure *Relative to young adult level. In the absence of evidence of kidney damage, neither GFR category G1 nor G2 fulfill the criteria for CKD. The CKD-EPI equation is validated in individuals 18 years of age and older. Currently the best equation for estimating glomerular filtration rate (GFR) from serum creatinine in children is the Bedside Matamoros equation. It is less accurate in patients with extremes of muscle mass, restriction of dietary protein, ingestion of creatine, extra-renal metabolism of creatinine, or treatment with medications that affect renal tubular creatinine secretion. Performed By: #### H JOSSY BMP3 #### [facility] [address] [place] [address] Glucose [Mass/Vol] 88 mg/dL Normal 70-100 [facility] Comment on above: Performed By: #### H JOSSY BMP3 #### [facility] [address] [place] [address] Urea nitrogen [Mass/Vol] 32 mg/dL High 9-20 [facility] Comment on above: Performed By: #### H JOSSY BMP3 #### [facility] [address] [place] [address] Chloride [Moles/Vol] 100 mmol/L Normal 98-107 [facility] Comment on above: Performed By: #### H KELLY FENTON3 #### [facility] [address] [place] [address] Potassium [Moles/Vol] 4.1 mmol/L Normal 3.5-5.1 [facility] Comment on above: Performed By: #### H KELLY FENTON3 #### [facility] [address] [place] [address] Sodium [Moles/Vol] 128 mmol/L Low 135-145 [facility] Comment on above: Performed By: #### H KELLY FENTON3 #### [facility] [address] [place], [place] Anion gap [Moles/Vol] 0 mmol/L Low 3 - 13 mmol/L [facility] Calcium [Mass/Vol] 8.1 mg/dL Low 8.4 - 10. 4 mg/dL [facility] Chloride [Moles/Vol] 100 mmol/L 98 - 10 7 mmol/L [facility] CO2 [Moles/Vol] 28 mmol/L 22 - 30 mmol/L [facility] Creatinine [Mass/Vol] 0.68 mg/dL 0.52 - 1.25 mg/dL [facility] EGFR IF NonAfrican [place] 82.5 mL/min >60 [facility] Comment on above: KDIGO guidelines pro vide the following GFR categories: Stage GFR(ml/min/1.73 m2) Terms G1 >=90 Normal or high G2 60-89 Mildly decreased* G3a 45-59 Mildly to moderately decreased G3b 30-44 Moderately to severely decreased G4 15-29 Severely decreased G5 <15 Kidney failure *Relative to young adult level. In the absence of evidence of kidney damage, neither GFR category G1 nor G2 fulfill the criteria for CKD. The CKD-EPI equation is validated in individuals 18 years of age and older. Currently the best equation for estimating glomerular filtration rate (GFR) from serum creatinine in children is the Bedside Matamoros equation. It is less accurate in patients with extremes of muscle mass, restriction of dietary protein, ingestion of creatine, extra-renal metabolism of creatinine, or treatment with medications that affect renal tubular creatinine secretion. GFR/1.73 sq M.predicted among blacks MDRD (S/P/Bld) [Vol rate/Area] mL/min/{1.73_m2} >60 mL/min [facility] Glucose [Mass/Vol] 88 mg/dL 70 - 100 mg/dL [facility] Interpretation and review of laboratory results Abnormal [facility] Potassium [Moles/Vol] 4.1 mmol/L 3.5 - 5.1 mmol/L [facility] Sodium [Moles/Vol] 128 mmol/L Low 135 - 145 mmol/L [facility] Urea nitrogen (BldV) [Mass/Vol] 32 mg/dL High 9 - 20 mg/dL [facility] Test Performed by [facility] [place] [facility], [address] [place] [id number] [place] [address] LAB [facility] Auto Differentialon 05-26 Absolute Baso # 0.1 10*3/uL 0.0 - 0.2 10*3/uL [facility] Absolute Neut # 6.4 10*3/uL 1.8 - 7.0 10*3/uL [facility] Basophils/100 WBC (Bld) 1.1 % 0.0 - 2.0 % [facility] Eosinophils (Bld) [#/Vol] 0.2 10*3/uL 0.0 - 0.5 10*3/uL [facility] Eosinophils/100 WBC (Bld) 1.9 % 1.0 - 6.0 % [facility] Granulocytes/100 WBC (Bld) 75.1 % 40.0 - 80.0 % [facility] Hematocrit (Bld) [Volume fraction] 22.3 % Low 35.0 - 47.0 % [facility] Hemoglobin.gastrointe stinal spec 1 Ql (Stl) 7.4 g/dL Low 11.7 - 16.0 g/dL [facility] Interpretation and review of laboratory results Abnormal [facility] Lymphocytes (Bld) [#/Vol] 1.2 10*3/uL 1.0 - 4.3 10*3/uL [facility] Lymphocytes/100 WBC (Bld) 14.2 % Low 20.0 - 40.0 % [facility] MCH (RBC) [Entitic mass] 30.5 pg 26.0 - 34.0 pg [facility] MCHC (RBC) [Mass/Vol] 33.4 % 32.0 - 36.0 % [facility] MCV (RBC) [Entitic vol] 91.3 fL 79.0 - 98.0 fL [facility] Monocytes (Bld) [#/Vol] 0.7 10*3/uL 0.0 - 0.8 10*3/uL [facility] Monocytes/100 WBC (Bld) 7.7 % 2.0 - 10.0 % [facility] Platelet distribution width (Bld) [Ratio] 18.6 % High 11.5 - 14.5 % [facility] Platelet mean volume (Bld) [Entitic vol] 7.0 fL Low 7.4 - 10.4 fL [facility] Platelets (Bld) [#/Vol] 497 10*3/uL High 140 - 440 10*3/uL [facility] RBC (Bld) [#/Vol] 2.44 10*6/uL Low 3.80 - 5.2 0 10*6/uL [facility] WBC (Bld) [#/Vol] 8.5 10*3/uL 3.6 - 10.7 10*3/uL [facility] Test Performed by [id number] [place] [address] LAB [facility] Creatinine, Random Urineon 0 06-13-2021 Creatinine (U) [Mass/Vol] 57.8 mg/dL No Range [facility] Creatinine, Ur Randomon 05-26 Creatinine, Ur Random 57.8 mg/dL Normal No Range [facility] Comment on above: Performed By: #### H JOSSY BMP3 #### [address] Hemogram w/ Autodiffon 06-13 Abs Baso Cnt 0.1 10*3/uL Normal 0.0-0.2 [facility] Comment on above: Performed By: #### H JOSSY BMP3 #### [address] Abs Neutrophile Cnt 6.4 10*3/uL Normal 1.8-7.0 [facility] Comment on above: Performed By: #### H JOSSY BMP3 #### [address] Basophils/100 WBC (Bld) 1.1 % Normal 0.0-2.0 [facility] Comment on above: Performed By: #### H JOSSY BMP3 #### [address] [place], [place] Eosinophils (Bld) [#/Vol] 0.2 10*3/uL Normal 0.0-0.5 [facility] Comment on above: Performed By: #### H JOSSY BMP3 #### [address] [place], [place] Eosinophils/100 WBC (Bld) 1.9 % Normal 1.0-6.0 [facility] Comment on above: Performed By: #### H JOSSY BMP3 #### [address] Erythrocyte distribution width (RBC) [Ratio] 18.6 % High 11.5-14.5 [facility] Comment on above: Performed By: #### H JOSSY BMP3 #### [address] [address] [place], [place] Granulocytes/100 WBC (Bld) 75.1 % Normal 40.0-80.0 [facility] Comment on above: Performed By: #### H JOSSY BMP3 #### [address] [address] [place], [place] Hematocrit (Bld) [Volume fraction] 22.3 % Low 35.0-47.0 [facility] Comment on above: Performed By: #### H JOSSY BMP3 #### [address] [address] [place], [place] Hemoglobin (Bld) [Mass/Vol] 7.4 g/dL Low 11.7-16.0 [facility] Comment on above: Performed By: #### H JOSSY BMP3 #### [address] [address] [place], [place] Lymphocytes (Bld) [#/Vol] 1.2 10*3/uL Normal 1.0-4.3 [facility] Comment on above: Performed By: #### H JOSSY BMP3 #### [facility] [address] [place] [address] Lymphocytes/100 WBC (Bld) 14.2 % Low 20.0-40.0 [facility] Comment on above: Performed By: #### H JOSSY, BMP3 #### [facility] [address] [place] [address] MCH (RBC) [Entitic mass] 30.5 pg Normal 26.0-34.0 [facility] Comment on above: Performed By: #### H JOSSY, BMP3 #### [facility] [address] [place] [address] MCHC 33.4 % Normal 32.0-36.0 [facility] Comment on above: Performed By: #### H JOSSY, BMP3 #### [facility] [address] [place] [address] MCV (RBC) [Entitic vol] 91.3 fL Normal 79.0-98.0 [facility] Comment on above: Performed By: #### H JOSSY, BMP3 #### [facility] [address] [place] [address] Monocytes (Bld) [#/Vol] 0.7 10*3/uL Normal 0.0-0.8 [facility] Comment on above: Performed By: #### H JOSSY, BMP3 #### [facility] [address] [place] [address] Monocytes/100 WBC (Bld) 7.7 % Normal 2.0-10.0 [facility] Comment on above: Performed By: #### H EMDF, BMP3 #### [facility] [address] [place] [address] Platelet mean volume (Bld) [Entitic vol] 7.0 fL Low 7.4-10.4 [facility] Comment on above: Performed By: #### H EMDF, BMP3 #### [facility] [address] [place] [address] Platelets (Bld) [#/Vol] 497 10*3/uL High 140-440 [facility] Comment on above: Performed By: #### H EMDOswaldo, BMP3 #### [address] [place] [address] RBC (Bld) [#/Vol] 2.44 10*6/uL Low 3.80-5.20 [facility] Comment on above: Performed By: #### H EMDF, BMP3 #### [address] [address] WBC (Bld) [#/Vol] 8.5 10*3/uL Normal 3.6-10.7 [facility] Comment on above: Performed By: #### H EMDF, BMP3 #### [address] [address] No Panel Informationon 06-13 Test Performed by [facility] [place] [facility], [address] [place] [id number] [facility] Osmolality, Urineon 06-13-19 22 Osmolality, Ur 573 mosm/kg 300 - 1000 mosm/kg [facility] Test Performed by [id number] [place] [address] - [facility] Osmolality,Urineon 2 Osmolality,Urine 573 mosm/kg Normal 300-1000 [facility] Comment on above: Performed By: #### H EMDOswaldo, BMP3 #### [address] [address] [place] [address] Potassium, Ur Randomon 06-13 Potassium [Moles/Vol] 50 mmol/L Normal No Range [facility] Comment on above: Performed By: #### H EMDF, BMP3 #### [address] [place] [address] Potassium, Urine, Randomon 0 06-13-2021 POTASSIUM, RANDOM URINE 50 mmol/L No Range [facility] Sodium, Ur Randomon 06-13-19 22 Sodium [Moles/Vol] 92 mmol/L High 30-90 [facility] Comment on above: Performed By: #### H EMDF, BMP3 #### [address] [place] [address] Sodium, urine, randomon 05-26 Interpretation and review of laboratory results Abnormal [facility] Sodium (U) [Moles/Vol] 92 mmol/L High 30 - 90 mmol/L [facility] Basic Metabolic Panelon 05-26 Calcium [Mass/Vol] 8.6 mg/dL Normal 8.4-10.4 [facility] Comment on above: Performed By: #### H EMDF, BMP3 #### [facility] [address] [place], [place] Glucose [Mass/Vol] 92 mg/dL Normal 70-100 [facility] Comment on above: Performed By: #### H EMDF, BMP3 #### [facility] [address] [place], [place] Urea nitrogen [Mass/Vol] 31 mg/dL High 9-20 [facility] Comment on above: Performed By: #### H EMDF, BMP3 #### [facility] [address] [place], [place] Anion gap [Moles/Vol] 2 mmol/L Low 3-13 [facility] Comment on above: Performed By: #### H EMDF, BMP3 #### [facility] [address] [place], [place] CO2 [Moles/Vol] 28 mmol/L Normal 22-30 [facility] Comment on above: Performed By: #### H EMDF, BMP3 #### [facility] [address] [place], [place] Creatinine [Mass/Vol] 0.72 mg/dL Normal 0.52-1.25 [facility] Comment on above: Performed By: #### H EMDF, BMP3 #### [facility] [address] [place], [place] GFR/1.73 sq M.predicted among blacks MDRD (S/P/Bld) [Vol rate/Area] mL/min/{1.73_m2} Normal >60 [facility] Comment on above: Performed By: #### H EMDF, BMP3 #### [facility] [address] [place], [place] GFR/1.73 sq M.predicted among non-blacks MDRD (S/P/Bld) [Vol rate/Area] 78.9 mL/min/{1.73_m2} Normal >60 [facility] Comment on above: Result Comment: KDIG O guidelines provide the following GFR categories: Stage GFR(ml/min/1.73 m2) Terms G1 >=90 Normal or high G2 60-89 Mildly decreased* G3a 45-59 Mildly to moderately decreased G3b 30-44 Moderately to severely decreased G4 15-29 Severely decreased G5 <15 Kidney failure *Relative to young adult level. In the absence of evidence of kidney damage, neither GFR category G1 nor G2 fulfill the criteria for CKD. The CKD-EPI equation is validated in individuals 18 years of age and older. Currently the best equation for estimating glomerular filtration rate (GFR) from serum creatinine in children is the Bedside Matamoros equation. It is less accurate in patients with extremes of muscle mass, restriction of dietary protein, ingestion of creatine, extra-renal metabolism of creatinine, or treatment with medications that affect renal tubular creatinine secretion. Performed By: #### H KELLY FENTON3 #### [address] Potassium [Moles/Vol] 4.8 mmol/L Normal 3.5-5.1 [facility] Comment on above: Performed By: #### H KELLY FENTON3 #### [address] Chloride [Moles/Vol] 102 mmol/L Normal 98-107 [facility] Comment on above: Performed By: #### H KELLY FENTON3 #### [address] Sodium [Moles/Vol] 132 mmol/L Low 135-145 [facility] Comment on above: Performed By: #### H JOSSY BMP3 #### [address] Calcium [Mass/Vol] 8.6 mg/dL 8.4 - 10. 4 mg/dL [facility] Chloride [Moles/Vol] 102 mmol/L 98 - 10 7 mmol/L [facility] CO2 [Moles/Vol] 28 mmol/L 22 - 30 mmol/L [facility] Creatinine [Mass/Vol] 0.72 mg/dL 0.52 - 1.25 mg/dL [facility] EGFR IF NonAfrican [place] 78.9 mL/min >60 [facility] Comment on above: KDIGO guidelines pro vide the following GFR categories: Stage GFR(ml/min/1.73 m2) Terms G1 >=90 Normal or high G2 60-89 Mildly decreased* G3a 45-59 Mildly to moderately decreased G3b 30-44 Moderately to severely decreased G4 15-29 Severely decreased G5 <15 Kidney failure *Relative to young adult level. In the absence of evidence of kidney damage, neither GFR category G1 nor G2 fulfill the criteria for CKD. The CKD-EPI equation is validated in individuals 18 years of age and older. Currently the best equation for estimating glomerular filtration rate (GFR) from serum creatinine in children is the Bedside Matamoros equation. It is less accurate in patients with extremes of muscle mass, restriction of dietary protein, ingestion of creatine, extra-renal metabolism of creatinine, or treatment with medications that affect renal tubular creatinine secretion. GFR/1.73 sq M.predicted among blacks MDRD (S/P/Bld) [Vol rate/Area] mL/min/{1.73_m2} >60 mL/min [facility] Potassium [Moles/Vol] 4.8 mmol/L 3.5 - 5.1 mmol/L [facility] Sodium [Moles/Vol] 132 mmol/L Low 135 - 145 mmol/L [facility] Urea nitrogen (BldV) [Mass/Vol] 31 mg/dL High 9 - 20 mg/dL [facility] CBC Auto Differentialon 05-26 Absolute Baso # 0.1 10*3/uL 0.0 - 0.2 10*3/uL [facility] Absolute Neut # 6.2 10*3/uL 1.8 - 7.0 10*3/uL [facility] Basophils/100 WBC (Bld) 1.0 % 0.0 - 2.0 % [facility] Eosinophils (Bld) [#/Vol] 0.2 10*3/uL 0.0 - 0.5 10*3/uL [facility] Eosinophils/100 WBC (Bld) 2.8 % 1.0 - 6.0 % [facility] Granulocytes/100 WBC (Bld) 73.1 % 40.0 - 80.0 % [facility] Hematocrit (Bld) [Volume fraction] 22.4 % Low 35.0 - 47.0 % [facility] Hemoglobin.gastrointe stinal spec 1 Ql (Stl) 7.6 g/dL Low 11.7 - 16.0 g/dL [facility] Lymphocytes (Bld) [#/Vol] 1.3 10*3/uL 1.0 - 4.3 10*3/uL [facility] Lymphocytes/100 WBC (Bld) 15.7 % Low 20.0 - 40.0 % [facility] MCH (RBC) [Entitic mass] 30.5 pg 26.0 - 34.0 pg [facility] MCHC (RBC) [Mass/Vol] 33.7 % 32.0 - 36.0 % [facility] MCV (RBC) [Entitic vol] 90.6 fL 79.0 - 98.0 fL [facility] Monocytes (Bld) [#/Vol] 0.6 10*3/uL 0.0 - 0.8 10*3/uL [facility] Monocytes/100 WBC (Bld) 7.4 % 2.0 - 10.0 % [facility] Platelet distribution width (Bld) [Ratio] 19.0 % High 11.5 - 14.5 % [facility] Platelet mean volume (Bld) [Entitic vol] 7.1 fL Low 7.4 - 10.4 fL [facility] Platelets (Bld) [#/Vol] 413 10*3/uL 140 - 440 10*3/uL [facility] RBC (Bld) [#/Vol] 2.48 10*6/uL Low 3.80 - 5.2 0 10*6/uL [facility] WBC (Bld) [#/Vol] 8.5 10*3/uL 3.6 - 10.7 10*3/uL [facility] w/ Autodiffon 06-12 Abs Baso Cnt 0.1 10*3/uL Normal 0.0-0.2 [facility] Comment on above: Performed By: #### H KELLY FENTON3 #### [facility] [address] [place] [address] Abs Neutrophile Cnt 6.2 10*3/uL Normal 1.8-7.0 [facility] Comment on above: Performed By: #### H EMDF, BMP3 #### [facility] [address] [place] [address] Basophils/100 WBC (Bld) 1.0 % Normal 0.0-2.0 [facility] Comment on above: Performed By: #### H EMDF, BMP3 #### [facility] [address] [place] [address] Eosinophils (Bld) [#/Vol] 0.2 10*3/uL Normal 0.0-0.5 [facility] Comment on above: Performed By: #### H EMDF, BMP3 #### [facility] [address] [place] [address] Eosinophils/100 WBC (Bld) 2.8 % Normal 1.0-6.0 [facility] Comment on above: Performed By: #### H EMDF, BMP3 #### [facility] [place] [address] Erythrocyte distribution width (RBC) [Ratio] 19.0 % High 11.5-14.5 [facility] Comment on above: Performed By: #### H EMDF, BMP3 #### [facility] [address] [place] [address] Granulocytes/100 WBC (Bld) 73.1 % Normal 40.0-80.0 [facility] Comment on above: Performed By: #### H EMDF, BMP3 #### [facility] [address] [place] [address] Hematocrit (Bld) [Volume fraction] 22.4 % Low 35.0-47.0 [facility] Comment on above: Performed By: #### H EMDF, BMP3 #### [facility] [address] [place] [address] Hemoglobin (Bld) [Mass/Vol] 7.6 g/dL Low 11.7-16.0 [facility] Comment on above: Performed By: #### H EMDF, BMP3 #### [facility] [address] [place] [address] Lymphocytes (Bld) [#/Vol] 1.3 10*3/uL Normal 1.0-4.3 [facility] Comment on above: Performed By: #### H EMDF, BMP3 #### [facility] [address] [place] [address] Lymphocytes/100 WBC (Bld) 15.7 % Low 20.0-40.0 [facility] Comment on above: Performed By: #### H EMDF, BMP3 #### [facility] [address] [place], [place] MCH (RBC) [Entitic mass] 30.5 pg Normal 26.0-34.0 [facility] Comment on above: Performed By: #### H EMDF, BMP3 #### [facility] [address] [place] [address] MCHC 33.7 % Normal 32.0-36.0 [facility] Comment on above: Performed By: #### H EMDF, BMP3 #### [facility] [address] [place] MCV (RBC) [Entitic vol] 90.6 fL Normal 79.0-98.0 [facility] Comment on above: Performed By: #### H EMDF, BMP3 #### [facility] [address] [place], [place] Monocytes (Bld) [#/Vol] 0.6 10*3/uL Normal 0.0-0.8 [facility] Comment on above: Performed By: #### H EMDF, BMP3 #### [facility] [address] [place], [place] Monocytes/100 WBC (Bld) 7.4 % Normal 2.0-10.0 [facility] Comment on above: Performed By: #### H EMDF, BMP3 #### [facility] [address] [place], [place] Platelet mean volume (Bld) [Entitic vol] 7.1 fL Low 7.4-10.4 [facility] Comment on above: Performed By: #### H EMDF, BMP3 #### [facility] [address] [place], [place] Platelets (Bld) [#/Vol] 413 10*3/uL Normal 140-440 [facility] Comment on above: Performed By: #### Drake FENTON BMP3 #### [address] RBC (Bld) [#/Vol] 2.48 10*6/uL Low 3.80-5.20 [facility] Comment on above: Performed By: #### Drake FENTON BMP3 #### [address] WBC (Bld) [#/Vol] 8.5 10*3/uL Normal 3.6-10.7 [facility] Comment on above: Performed By: #### KELLY ZUNIGA3 #### [address] No Panel Informationon 06-12 Interpretation and review of laboratory results Abnormal [facility] Test Performed by [id number] [place] [address] LAB [facility] Basic Metabolic Panelon 05-26 Calcium [Mass/Vol] 8.4 mg/dL Normal 8.4-10.4 [facility] Comment on above: Performed By: #### Drake FENTON BMP3 #### [address] CO2 [Moles/Vol] 27 mmol/L Normal 22-30 [facility] Comment on above: Performed By: #### Drake FENTON BMP3 #### [address] Creatinine [Mass/Vol] 0.81 mg/dL Normal 0.52-1.25 [facility] Comment on above: Performed By: #### Drake FENTON BMP3 #### [address] GFR/1.73 sq M.predicted among blacks MDRD (S/P/Bld) [Vol rate/Area] 79.4 mL/min/{1.73_m2} Normal >60 [facility] Comment on above: Performed By: #### Drake FENTON BMP3 #### [facility] [address] [place] [address] GFR/1.73 sq M.predicted among non-blacks MDRD (S/P/Bld) [Vol rate/Area] 68.5 mL/min/{1.73_m2} Normal >60 [facility] Comment on above: Result Comment: KDIG O guidelines provide the following GFR categories: Stage GFR(ml/min/1.73 m2) Terms G1 >=90 Normal or high G2 60-89 Mildly decreased* G3a 45-59 Mildly to moderately decreased G3b 30-44 Moderately to severely decreased G4 15-29 Severely decreased G5 <15 Kidney failure *Relative to young adult level. In the absence of evidence of kidney damage, neither GFR category G1 nor G2 fulfill the criteria for CKD. The CKD-EPI equation is validated in individuals 18 years of age and older. Currently the best equation for estimating glomerular filtration rate (GFR) from serum creatinine in children is the Bedside Matamoros equation. It is less accurate in patients with extremes of muscle mass, restriction of dietary protein, ingestion of creatine, extra-renal metabolism of creatinine, or treatment with medications that affect renal tubular creatinine secretion. Performed By: #### H JOSSY BMP3 #### [facility] [address] [place], [place] Urea nitrogen [Mass/Vol] 33 mg/dL High 9-20 [facility] Comment on above: Performed By: #### H JOSSY BMP3 #### [facility] [address] [place], [place] Chloride [Moles/Vol] 104 mmol/L Normal 98-107 [facility] Comment on above: Performed By: #### H JOSSY BMP3 #### [facility] [address] [place], [place] Potassium [Moles/Vol] 5.2 mmol/L High 3.5-5.1 [facility] Comment on above: Performed By: #### H JOSSY BMP3 #### [facility] [address] [place], [place] Sodium [Moles/Vol] 133 mmol/L Low 135-145 [facility] Comment on above: Performed By: #### H KELLY FENTON3 #### [facility] [address] [place] [address] Anion gap [Moles/Vol] 2 mmol/L Low 3-13 [facility] Comment on above: Performed By: #### H KELLY FENTON3 #### [facility] [address] [place], [place] Glucose [Mass/Vol] 92 mg/dL Normal 70-100 [facility] Comment on above: Performed By: #### H KELLY FENTON3 #### [facility] [address] [place], [place] Calcium [Mass/Vol] 8.4 mg/dL 8.4 - 10. 4 mg/dL [facility] Chloride [Moles/Vol] 104 mmol/L 98 - 10 7 mmol/L [facility] CO2 [Moles/Vol] 27 mmol/L 22 - 30 mmol/L [facility] Creatinine [Mass/Vol] 0.81 mg/dL 0.52 - 1.25 mg/dL [facility] EGFR IF NonAfrican [place] 68.5 mL/min >60 [facility] Comment on above: KDIGO guidelines pro vide the following GFR categories: Stage GFR(ml/min/1.73 m2) Terms G1 >=90 Normal or high G2 60-89 Mildly decreased* G3a 45-59 Mildly to moderately decreased G3b 30-44 Moderately to severely decreased G4 15-29 Severely decreased G5 <15 Kidney failure *Relative to young adult level. In the absence of evidence of kidney damage, neither GFR category G1 nor G2 fulfill the criteria for CKD. The CKD-EPI equation is validated in individuals 18 years of age and older. Currently the best equation for estimating glomerular filtration rate (GFR) from serum creatinine in children is the Bedside Matamoros equation. It is less accurate in patients with extremes of muscle mass, restriction of dietary protein, ingestion of creatine, extra-renal metabolism of creatinine, or treatment with medications that affect renal tubular creatinine secretion. GFR/1.73 sq M.predicted among blacks MDRD (S/P/Bld) [Vol rate/Area] 79.4 mL/min/{1.73_m2} >60 [facility] Potassium [Moles/Vol] 5.2 mmol/L High 3.5 - 5.1 mmol/L [facility] Sodium [Moles/Vol] 133 mmol/L Low 135 - 145 mmol/L [facility] Urea nitrogen (BldV) [Mass/Vol] 33 mg/dL High 9 - 20 mg/dL [facility] CBC Auto Differentialon 05-26 Absolute Baso # 0.1 10*3/uL 0.0 - 0.2 10*3/uL [facility] Absolute Neut # 6.0 10*3/uL 1.8 - 7.0 10*3/uL [facility] Basophils/100 WBC (Bld) 0.8 % 0.0 - 2.0 % [facility] Eosinophils (Bld) [#/Vol] 0.3 10*3/uL 0.0 - 0.5 10*3/uL [facility] Eosinophils/100 WBC (Bld) 3.5 % 1.0 - 6.0 % [facility] Granulocytes/100 WBC (Bld) 69.6 % 40.0 - 80.0 % [facility] Hematocrit (Bld) [Volume fraction] 23.9 % Low 35.0 - 47.0 % [facility] Hemoglobin.gastrointe stinal spec 1 Ql (Stl) 7.8 g/dL Low 11.7 - 16.0 g/dL [facility] Lymphocytes (Bld) [#/Vol] 1.5 10*3/uL 1.0 - 4.3 10*3/uL [facility] Lymphocytes/100 WBC (Bld) 17.1 % Low 20.0 - 40.0 % [facility] MCH (RBC) [Entitic mass] 30.1 pg 26.0 - 34.0 pg [facility] MCHC (RBC) [Mass/Vol] 32.6 % 32.0 - 36.0 % [facility] MCV (RBC) [Entitic vol] 92.1 fL 79.0 - 98.0 fL [facility] Monocytes (Bld) [#/Vol] 0.8 10*3/uL 0.0 - 0.8 10*3/uL [facility] Monocytes/100 WBC (Bld) 9.0 % 2.0 - 10.0 % [facility] Platelet distribution width (Bld) [Ratio] 19.1 % High 11.5 - 14.5 % [facility] Platelet mean volume (Bld) [Entitic vol] 7.7 fL 7.4 - 10.4 fL [facility] Platelets (Bld) [#/Vol] 385 10*3/uL 140 - 440 10*3/uL [facility] RBC (Bld) [#/Vol] 2.60 10*6/uL Low 3.80 - 5.2 0 10*6/uL [facility] WBC (Bld) [#/Vol] 8.6 10*3/uL 3.6 - 10.7 10*3/uL [facility] Autodiffon [facility] Abs Baso Cnt 0.1 10*3/uL Normal 0.0-0.2 [facility] Comment on above: Performed By: #### H EMDF, BMP3 #### [facility] [address] [place] [address] Abs Neutrophile Cnt 6.0 10*3/uL Normal 1.8-7.0 [facility] Comment on above: Performed By: #### H EMDF, BMP3 #### [facility] [address] [place] [address] Basophils/100 WBC (Bld) 0.8 % Normal 0.0-2.0 [facility] Comment on above: Performed By: #### H EMDF, BMP3 #### [facility] [address] [place] [address] Eosinophils (Bld) [#/Vol] 0.3 10*3/uL Normal 0.0-0.5 [facility] Comment on above: Performed By: #### H EMDF, BMP3 #### [facility] [address] [place] [address] Eosinophils/100 WBC (Bld) 3.5 % Normal 1.0-6.0 [facility] Comment on above: Performed By: #### H EMDF, BMP3 #### [facility] [address] [place] [address] Erythrocyte distribution width (RBC) [Ratio] 19.1 % High 11.5-14.5 [facility] Comment on above: Performed By: #### H EMDF, BMP3 #### [facility] [address] [place] [address] Granulocytes/100 WBC (Bld) 69.6 % Normal 40.0-80.0 [facility] Comment on above: Performed By: #### H EMDF, BMP3 #### [facility] [address] [place], [place] Hematocrit (Bld) [Volume fraction] 23.9 % Low 35.0-47.0 [facility] Comment on above: Performed By: #### H EMDF, BMP3 #### [facility] [address] [place], [place] Hemoglobin (Bld) [Mass/Vol] 7.8 g/dL Low 11.7-16.0 [facility] Comment on above: Performed By: #### H EMDF, BMP3 #### [address] [address] [place], [place] Lymphocytes (Bld) [#/Vol] 1.5 10*3/uL Normal 1.0-4.3 [facility] Comment on above: Performed By: #### H EMDF, BMP3 #### [address] [address] [place], [place] Lymphocytes/100 WBC (Bld) 17.1 % Low 20.0-40.0 [facility] Comment on above: Performed By: #### H EMDF, BMP3 #### [address] MCH (RBC) [Entitic mass] 30.1 pg Normal 26.0-34.0 [facility] Comment on above: Performed By: #### H EMDF, BMP3 #### [address] [address] [place], [place] MCHC 32.6 % Normal 32.0-36.0 [facility] Comment on above: Performed By: #### H EMDF, BMP3 #### [address] MCV (RBC) [Entitic vol] 92.1 fL Normal 79.0-98.0 [facility] Comment on above: Performed By: #### H EMDF, BMP3 #### [address] Monocytes (Bld) [#/Vol] 0.8 10*3/uL Normal 0.0-0.8 [facility] Comment on above: Performed By: #### H JOSSY BMP3 #### [address] [address] [place], [place] Monocytes/100 WBC (Bld) 9.0 % Normal 2.0-10.0 [facility] Comment on above: Performed By: #### Drake FENTON BMP3 #### [address] [address] [place], [place] Platelet mean volume (Bld) [Entitic vol] 7.7 fL Normal 7.4-10.4 [facility] Comment on above: Performed By: #### Drake FENTON BMP3 #### [address] Platelets (Bld) [#/Vol] 385 10*3/uL Normal 140-440 [facility] Comment on above: Performed By: #### Drake FENTON BMP3 #### [address] RBC (Bld) [#/Vol] 2.60 10*6/uL Low 3.80-5.20 [facility] Comment on above: Performed By: #### Drake FENTON BMP3 #### [address] WBC (Bld) [#/Vol] 8.6 10*3/uL Normal 3.6-10.7 [facility] Comment on above: Performed By: #### Drake FENTON BMP3 #### [address] Basic Metabolic Panelon - Anion gap [Moles/Vol] 0 mmol/L Low 3-13 [facility] Comment on above: Performed By: #### B MP3 #### [address] Calcium [Mass/Vol] 8.2 mg/dL Low 8.4-10.4 [facility] Comment on above: Performed By: #### B MP3 #### [address] [place] [address] CO2 [Moles/Vol] 27 mmol/L Normal 22-30 [facility] Comment on above: Performed By: #### B MP3 #### [facility] [address] [place] [address] Glucose [Mass/Vol] 101 mg/dL High 70-100 [facility] Comment on above: Performed By: #### B MP3 #### [facility] [address] [place] [address] Urea nitrogen [Mass/Vol] 33 mg/dL High 9-20 [facility] Comment on above: Performed By: #### B MP3 #### [address] [place] [address] Creatinine [Mass/Vol] 0.91 mg/dL Normal 0.52-1.25 [facility] Comment on above: Performed By: #### B MP3 #### [address] [place] [address] GFR/1.73 sq M.predicted among blacks MDRD (S/P/Bld) [Vol rate/Area] 68.9 mL/min/{1.73_m2} Normal >60 [facility] Comment on above: Performed By: #### B MP3 #### [address] [address] [place] [address] GFR/1.73 sq M.predicted among non-blacks MDRD (S/P/Bld) [Vol rate/Area] 59.5 mL/min/{1.73_m2} Abnormal >60 [facility] Comment on above: Result Comment: KDIG O guidelines provide the following GFR categories: Stage GFR(ml/min/1.73 m2) Terms G1 >=90 Normal or high G2 60-89 Mildly decreased* G3a 45-59 Mildly to moderately decreased G3b 30-44 Moderately to severely decreased G4 15-29 Severely decreased G5 <15 Kidney failure *Relative to young adult level. In the absence of evidence of kidney damage, neither GFR category G1 nor G2 fulfill the criteria for CKD. The CKD-EPI equation is validated in individuals 18 years of age and older. Currently the best equation for estimating glomerular filtration rate (GFR) from serum creatinine in children is the Bedside Matamoros equation. It is less accurate in patients with extremes of muscle mass, restriction of dietary protein, ingestion of creatine, extra-renal metabolism of creatinine, or treatment with medications that affect renal tubular creatinine secretion. Performed By: #### B MP3 #### [facility] [address] [place] [address] Potassium [Moles/Vol] 4.6 mmol/L Normal 3.5-5.1 [facility] Comment on above: Performed By: #### B MP3 #### [facility] [address] [place] [address] Chloride [Moles/Vol] 105 mmol/L Normal 98-107 [facility] Comment on above: Performed By: #### B MP3 #### [facility] [address] [place] [address] Sodium [Moles/Vol] 132 mmol/L Low 135-145 [facility] Comment on above: Performed By: #### B MP3 #### [facility] [address] [place] [address] Anion gap [Moles/Vol] 0 mmol/L Low 3 - 13 mmol/L [facility] Calcium [Mass/Vol] 8.2 mg/dL Low 8.4 - 10. 4 mg/dL [facility] Chloride [Moles/Vol] 105 mmol/L 98 - 10 7 mmol/L [facility] CO2 [Moles/Vol] 27 mmol/L 22 - 30 mmol/L [facility] Creatinine [Mass/Vol] 0.91 mg/dL 0.52 - 1.25 mg/dL [facility] EGFR IF NonAfrican [place] 59.5 mL/min Abnormal >60 [facility] Comment on above: KDIGO guidelines pro vide the following GFR categories: Stage GFR(ml/min/1.73 m2) Terms G1 >=90 Normal or high G2 60-89 Mildly decreased* G3a 45-59 Mildly to moderately decreased G3b 30-44 Moderately to severely decreased G4 15-29 Severely decreased G5 <15 Kidney failure *Relative to young adult level. In the absence of evidence of kidney damage, neither GFR category G1 nor G2 fulfill the criteria for CKD. The CKD-EPI equation is validated in individuals 18 years of age and older. Currently the best equation for estimating glomerular filtration rate (GFR) from serum creatinine in children is the Bedside Matamoros equation. It is less accurate in patients with extremes of muscle mass, restriction of dietary protein, ingestion of creatine, extra-renal metabolism of creatinine, or treatment with medications that affect renal tubular creatinine secretion. GFR/1.73 sq M.predicted among blacks MDRD (S/P/Bld) [Vol rate/Area] 68.9 mL/min/{1.73_m2} >60 [facility] Glucose [Mass/Vol] 101 mg/dL High 70 - 100 mg/dL [facility] Interpretation and review of laboratory results Abnormal [facility] Potassium [Moles/Vol] 4.6 mmol/L 3.5 - 5.1 mmol/L [facility] Sodium [Moles/Vol] 132 mmol/L Low 135 - 145 mmol/L [facility] Urea nitrogen (BldV) [Mass/Vol] 33 mg/dL High 9 - 20 mg/dL [facility] Test Performed by [facility] [place] [facility], [address] [place] [id number] [place] [address] LAB [facility] CBC Auto Differentialon 05-26 Absolute Baso # 0.0 10*3/uL 0.0 - 0.2 10*3/uL [facility] Absolute Neut # 7.2 10*3/uL High 1.8 - 7.0 10*3/uL [facility] Basophils/100 WBC (Bld) 0.2 % 0.0 - 2.0 % [facility] Eosinophils (Bld) [#/Vol] 0.0 10*3/uL 0.0 - 0.5 10*3/uL [facility] Eosinophils/100 WBC (Bld) 0.3 % Low 1.0 - 6.0 % [facility] Granulocytes/100 WBC (Bld) 74.0 % 40.0 - 80.0 % [facility] Hematocrit (Bld) [Volume fraction] 23.2 % Low 35.0 - 47.0 % [facility] Hemoglobin.gastrointe stinal spec 1 Ql (Stl) 7.7 g/dL Low 11.7 - 16.0 g/dL [facility] Interpretation and review of laboratory results Abnormal [facility] Lymphocytes (Bld) [#/Vol] 1.3 10*3/uL 1.0 - 4.3 10*3/uL [facility] Lymphocytes/100 WBC (Bld) 13.0 % Low 20.0 - 40.0 % [facility] MCH (RBC) [Entitic mass] 30.4 pg 26.0 - 34.0 pg [facility] MCHC (RBC) [Mass/Vol] 33.2 % 32.0 - 36.0 % [facility] MCV (RBC) [Entitic vol] 91.4 fL 79.0 - 98.0 fL [facility] Monocytes (Bld) [#/Vol] 1.2 10*3/uL High 0.0 - 0.8 10*3/uL [facility] Monocytes/100 WBC (Bld) 12.5 % High 2.0 - 10.0 % [facility] Platelet distribution width (Bld) [Ratio] 18.6 % High 11.5 - 14.5 % [facility] Platelet mean volume (Bld) [Entitic vol] 8.0 fL 7.4 - 10.4 fL [facility] Platelets (Bld) [#/Vol] 338 10*3/uL 140 - 440 10*3/uL [facility] RBC (Bld) [#/Vol] 2.53 10*6/uL Low 3.80 - 5.2 0 10*6/uL [facility] WBC (Bld) [#/Vol] 9.7 10*3/uL 3.6 - 10.7 10*3/uL [facility] Test Performed by [id number] [place] [address] LAB [facility] Hemogram w/ Autodiffon 06-10 Abs Baso Cnt 0.0 10*3/uL Normal 0.0-0.2 [facility] Comment on above: Performed By: #### H JOSSY BMP3 #### [address] [address] Abs Neutrophile Cnt 7.2 10*3/uL High 1.8-7.0 [facility] Comment on above: Performed By: #### H JOSSY BMP3 #### [address] [address] Basophils/100 WBC (Bld) 0.2 % Normal 0.0-2.0 [facility] Comment on above: Performed By: #### H JOSSY BMP3 #### [facility] [address] [place] [address] Eosinophils (Bld) [#/Vol] 0.0 10*3/uL Normal 0.0-0.5 [facility] Comment on above: Performed By: #### H EMDF, BMP3 #### [facility] [address] [place] [address] Eosinophils/100 WBC (Bld) 0.3 % Low 1.0-6.0 [facility] Comment on above: Performed By: #### H EMDF, BMP3 #### [facility] [address] [place], [place] Erythrocyte distribution width (RBC) [Ratio] 18.6 % High 11.5-14.5 [facility] Comment on above: Performed By: #### H EMDF, BMP3 #### [facility] [address] [place] [address] Granulocytes/100 WBC (Bld) 74.0 % Normal 40.0-80.0 [facility] Comment on above: Performed By: #### H EMDF, BMP3 #### [facility] [address] [place], [place] Hematocrit (Bld) [Volume fraction] 23.2 % Low 35.0-47.0 [facility] Comment on above: Performed By: #### H EMDF, BMP3 #### [facility] [address] [place], [place] Hemoglobin (Bld) [Mass/Vol] 7.7 g/dL Low 11.7-16.0 [facility] Comment on above: Performed By: #### H EMDF, BMP3 #### [facility] [address] [place], [place] Lymphocytes (Bld) [#/Vol] 1.3 10*3/uL Normal 1.0-4.3 [facility] Comment on above: Performed By: #### H EMDF, BMP3 #### [facility] [address] [place] [address] Lymphocytes/100 WBC (Bld) 13.0 % Low 20.0-40.0 [facility] Comment on above: Performed By: #### H EMDF, BMP3 #### [facility] [address] [place], [place] MCH (RBC) [Entitic mass] 30.4 pg Normal 26.0-34.0 [facility] Comment on above: Performed By: #### H EMDF, BMP3 #### [facility] [address] [place], [place] MCHC 33.2 % Normal 32.0-36.0 [facility] Comment on above: Performed By: #### H EMDF, BMP3 #### [address] [address] [place], [place] MCV (RBC) [Entitic vol] 91.4 fL Normal 79.0-98.0 [facility] Comment on above: Performed By: #### H EMDF, BMP3 #### [address] [address] [place], [place] Monocytes (Bld) [#/Vol] 1.2 10*3/uL High 0.0-0.8 [facility] Comment on above: Performed By: #### H EMDF, BMP3 #### [address] [address] [place], [place] Monocytes/100 WBC (Bld) 12.5 % High 2.0-10.0 [facility] Comment on above: Performed By: #### H EMDF, BMP3 #### [address] [address] [place], [place] Platelet mean volume (Bld) [Entitic vol] 8.0 fL Normal 7.4-10.4 [facility] Comment on above: Performed By: #### H EMDF, BMP3 #### [address] [address] [place], [place] Platelets (Bld) [#/Vol] 338 10*3/uL Normal 140-440 [facility] Comment on above: Performed By: #### H EMDF, BMP3 #### [address] [address] [place], [place] RBC (Bld) [#/Vol] 2.53 10*6/uL Low 3.80-5.20 [facility] Comment on above: Performed By: #### H JOSSY BMP3 #### [address] [address] [place], [place] WBC (Bld) [#/Vol] 9.7 10*3/uL Normal 3.6-10.7 [facility] Comment on above: Performed By: #### H JOSSY BMP3 #### [address] [address] [place], [place] Basic Metabolic Panelon 02-04 29-2021 Anion gap [Moles/Vol] 6 mmol/L Normal 3-13 [facility] Comment on above: Performed By: #### H JOSSY BMP3 #### [address] [address] [place], [place] Calcium [Mass/Vol] 7.9 mg/dL Low 8.4-10.4 [facility] Comment on above: Performed By: #### H JOSSY BMP3 #### [address] [address] [place], [place] CO2 [Moles/Vol] 26 mmol/L Normal 22-30 [facility] Comment on above: Performed By: #### H JOSSY BMP3 #### [address] [address] [place], [place] Glucose [Mass/Vol] 223 mg/dL High 70-100 [facility] Comment on above: Performed By: #### H JOSSY BMP3 #### [address] [address] [place], [place] Urea nitrogen [Mass/Vol] 27 mg/dL High 9-20 [facility] Comment on above: Performed By: #### H JOSSY BMP3 #### [address] [address] [place], [place] Creatinine [Mass/Vol] 0.68 mg/dL Normal 0.52-1.25 [facility] Comment on above: Performed By: #### H JOSSY BMP3 #### [address] [address] [place], [place] GFR/1.73 sq M.predicted among blacks MDRD (S/P/Bld) [Vol rate/Area] mL/min/{1.73_m2} Normal >60 [facility] Comment on above: Performed By: #### H JOSSY BMP3 #### [facility] [address] [place] [address] GFR/1.73 sq M.predicted among non-blacks MDRD (S/P/Bld) [Vol rate/Area] 82.5 mL/min/{1.73_m2} Normal >60 [facility] Comment on above: Result Comment: KDIG O guidelines provide the following GFR categories: Stage GFR(ml/min/1.73 m2) Terms G1 >=90 Normal or high G2 60-89 Mildly decreased* G3a 45-59 Mildly to moderately decreased G3b 30-44 Moderately to severely decreased G4 15-29 Severely decreased G5 <15 Kidney failure *Relative to young adult level. In the absence of evidence of kidney damage, neither GFR category G1 nor G2 fulfill the criteria for CKD. The CKD-EPI equation is validated in individuals 18 years of age and older. Currently the best equation for estimating glomerular filtration rate (GFR) from serum creatinine in children is the Bedside Matamoros equation. It is less accurate in patients with extremes of muscle mass, restriction of dietary protein, ingestion of creatine, extra-renal metabolism of creatinine, or treatment with medications that affect renal tubular creatinine secretion. Performed By: #### H JOSSY BMP3 #### [facility] [address] [place], [place] Chloride [Moles/Vol] 102 mmol/L Normal 98-107 [facility] Comment on above: Performed By: #### H JOSSY BMP3 #### [facility] [address] [place], [place] Potassium [Moles/Vol] 3.7 mmol/L Normal 3.5-5.1 [facility] Comment on above: Performed By: #### H JOSSY BMP3 #### [facility] [address] [place], [place] Sodium [Moles/Vol] 135 mmol/L Normal 135-145 [facility] Comment on above: Performed By: #### H EMD, BMP3 #### [address] [address] Anion gap [Moles/Vol] 6 mmol/L 3 - 13 mmol/L [facility] Calcium [Mass/Vol] 7.9 mg/dL Low 8.4 - 10. 4 mg/dL [facility] Chloride [Moles/Vol] 102 mmol/L 98 - 10 7 mmol/L [facility] CO2 [Moles/Vol] 26 mmol/L 22 - 30 mmol/L [facility] Creatinine [Mass/Vol] 0.68 mg/dL 0.52 - 1.25 mg/dL [facility] EGFR IF NonAfrican [place] 82.5 mL/min >60 [facility] Comment on above: KDIGO guidelines pro vide the following GFR categories: Stage GFR(ml/min/1.73 m2) Terms G1 >=90 Normal or high G2 60-89 Mildly decreased* G3a 45-59 Mildly to moderately decreased G3b 30-44 Moderately to severely decreased G4 15-29 Severely decreased G5 <15 Kidney failure *Relative to young adult level. In the absence of evidence of kidney damage, neither GFR category G1 nor G2 fulfill the criteria for CKD. The CKD-EPI equation is validated in individuals 18 years of age and older. Currently the best equation for estimating glomerular filtration rate (GFR) from serum creatinine in children is the Bedside Matamoros equation. It is less accurate in patients with extremes of muscle mass, restriction of dietary protein, ingestion of creatine, extra-renal metabolism of creatinine, or treatment with medications that affect renal tubular creatinine secretion. GFR/1.73 sq M.predicted among blacks MDRD (S/P/Bld) [Vol rate/Area] mL/min/{1.73_m2} >60 mL/min [facility] Glucose [Mass/Vol] 223 mg/dL High 70 - 100 mg/dL [facility] Interpretation and review of laboratory results Abnormal [facility] Potassium [Moles/Vol] 3.7 mmol/L 3.5 - 5.1 mmol/L [facility] Sodium [Moles/Vol] 135 mmol/L 135 - 145 mmol/L [facility] Urea nitrogen (BldV) [Mass/Vol] 27 mg/dL High 9 - 20 mg/dL [facility] Test Performed by [facility] [facility], [facility] [place], [place] [id number] [place] [address] LAB [facility] CBC Auto Differentialon 05-26 Absolute Baso # 0.0 10*3/uL 0.0 - 0.2 10*3/uL [facility] Absolute Neut # 7.4 10*3/uL High 1.8 - 7.0 10*3/uL [facility] Basophils/100 WBC (Bld) 0.1 % 0.0 - 2.0 % [facility] Eosinophils (Bld) [#/Vol] 0.0 10*3/uL 0.0 - 0.5 10*3/uL [facility] Eosinophils/100 WBC (Bld) 0.0 % Low 1.0 - 6.0 % [facility] Granulocytes/100 WBC (Bld) 87.6 % High 40.0 - 80.0 % [facility] Hematocrit (Bld) [Volume fraction] 27.1 % Low 35.0 - 47.0 % [facility] Hemoglobin.gastrointe stinal spec 1 Ql (Stl) 8.9 g/dL Low 11.7 - 16.0 g/dL [facility] Interpretation and review of laboratory results Abnormal [facility] Lymphocytes (Bld) [#/Vol] 0.4 10*3/uL Low 1.0 - 4.3 10*3/uL [facility] Lymphocytes/100 WBC (Bld) 4.7 % Low 20.0 - 40.0 % [facility] MCH (RBC) [Entitic mass] 30.5 pg 26.0 - 34.0 pg [facility] MCHC (RBC) [Mass/Vol] 33.0 % 32.0 - 36.0 % [facility] MCV (RBC) [Entitic vol] 92.4 fL 79.0 - 98.0 fL [facility] Monocytes (Bld) [#/Vol] 0.6 10*3/uL 0.0 - 0.8 10*3/uL [facility] Monocytes/100 WBC (Bld) 7.6 % 2.0 - 10.0 % [facility] Platelet distribution width (Bld) [Ratio] 19.0 % High 11.5 - 14.5 % [facility] Platelet mean volume (Bld) [Entitic vol] 8.3 fL 7.4 - 10.4 fL [facility] Platelets (Bld) [#/Vol] 250 10*3/uL 140 - 440 10*3/uL [facility] RBC (Bld) [#/Vol] 2.93 10*6/uL Low 3.80 - 5.2 0 10*6/uL [facility] WBC (Bld) [#/Vol] 8.5 10*3/uL 3.6 - 10.7 10*3/uL [facility] Test Performed by [facility] [facility], [address] [place] [address] [facility] Hemogram w/ Autodiffon 06-09 Abs Baso Cnt 0.0 10*3/uL Normal 0.0-0.2 [facility] Comment on above: Performed By: #### H EMDF BMP3 #### [address] [address] Abs Neutrophile Cnt 7.4 10*3/uL High 1.8-7.0 [facility] Comment on above: Performed By: #### H EMDF BMP3 #### [address] [place] [address] Basophils/100 WBC (Bld) 0.1 % Normal 0.0-2.0 [facility] Comment on above: Performed By: #### H EMDF BMP3 #### [address] [address] Eosinophils (Bld) [#/Vol] 0.0 10*3/uL Normal 0.0-0.5 [facility] [facility] Comment on above: Performed By: #### H EMDF BMP3 #### [address] [place] [address] Eosinophils/100 WBC (Bld) 0.0 % Low 1.0-6.0 [facility] Comment on above: Performed By: #### H EMDF, BMP3 #### [address] [address] Erythrocyte distribution width (RBC) [Ratio] 19.0 % High 11.5-14.5 [facility] Comment on above: Performed By: #### H EMDF, BMP3 #### [address] [place] [address] Granulocytes/100 WBC (Bld) 87.6 % High 40.0-80.0 [facility] Comment on above: Performed By: #### H JOSSY BMP3 #### [address] Hematocrit (Bld) [Volume fraction] 27.1 % Low 35.0-47.0 [facility] Comment on above: Performed By: #### H JOSSY BMP3 #### [address] Hemoglobin (Bld) [Mass/Vol] 8.9 g/dL Low 11.7-16.0 [facility] Comment on above: Performed By: #### H JOSSY BMP3 #### [address] Lymphocytes (Bld) [#/Vol] 0.4 10*3/uL Low 1.0-4.3 [facility] Comment on above: Performed By: #### H JOSSY BMP3 #### [address] Lymphocytes/100 WBC (Bld) 4.7 % Low 20.0-40.0 [facility] Comment on above: Performed By: #### H JOSSY BMP3 #### [address] MCH (RBC) [Entitic mass] 30.5 pg Normal 26.0-34.0 [facility] Comment on above: Performed By: #### H JOSSY BMP3 #### [address] MCHC 33.0 % Normal 32.0-36.0 [facility] Comment on above: Performed By: #### H JOSSY BMP3 #### [address] MCV (RBC) [Entitic vol] 92.4 fL Normal 79.0-98.0 [facility] Comment on above: Performed By: #### H JOSSY BMP3 #### [address] Monocytes (Bld) [#/Vol] 0.6 10*3/uL Normal 0.0-0.8 [facility] Comment on above: Performed By: #### H JOSSY BMP3 #### [facility] [address] [place], [place] Monocytes/100 WBC (Bld) 7.6 % Normal 2.0-10.0 [facility] Comment on above: Performed By: #### H JOSSY BMP3 #### [address] [place], [place] Platelet mean volume (Bld) [Entitic vol] 8.3 fL Normal 7.4-10.4 [facility] Comment on above: Performed By: #### H EMDOswaldo BMP3 #### [address] [address] [place], [place] Platelets (Bld) [#/Vol] 250 10*3/uL Normal 140-440 [facility] Comment on above: Performed By: #### H EMDOswaldo BMP3 #### [address] [place], [place] RBC (Bld) [#/Vol] 2.93 10*6/uL Low 3.80-5.20 [facility] Comment on above: Performed By: #### H EMDF, BMP3 #### [address] [place], [place] WBC (Bld) [#/Vol] 8.5 10*3/uL Normal 3.6-10.7 [facility] Comment on above: Performed By: #### H EMDF, BMP3 #### [address] [place], [place] [facility] Lefton CR Femur 2+ Views Left Patient Name: DEBRA COLE Diagnostic Radiology ACCESSION EXAM DATE/TIME PROCEDURE ORDERING PROVIDER [id number] 06/08/2021 21:36 EST CR Femur 2+ Views Left n [id number] -JOSI BHATTI CPT code 57204 Reason For Exam (CR Femur 2+ Views Left n) s/p L lyn, please include entire implant, PACU XR Report PELVIS SINGLE VIEW. LEFT FEMUR 2 VIEWS CLINICAL INDICATION: PACU XR, low pelvis XR TECHNIQUE: Single, AP view of the pelvis; 2 views of the left femur. COMPARISON: May,. FINDINGS: Status post placement of longstem left hip arthroplasty transfixing subtrochanteric fracture. Hardware appears grossly intact and fracture fragments in close apposition. Distal femur grossly intact. No dislocation. Postsurgical changes in the overlying and surrounding soft tissues. IMPRESSION: 1. Postsurgical change compatible with status post ORIF of left subtrochanteric femoral fracture. Report Dictated on Workstation: [email or web address] Final Dictated: 06/08/2021 9:02 pm Dictating Physician: MD YUAN WENDELL Signed Date and Time: 06/08/2021 9:05 pm Signed by: MD YUAN WENDELL Transcribed Date and Time: 06/08/2021 9:02 [facility] [place] CR Pelvis 1 or 2 Viewson CR Pelvis 1 or 2 Views Patient Name: DEBRA COLE Diagnostic Radiology ACCESSION EXAM DATE/TIME PROCEDURE ORDERING PROVIDER [id number] 06/08/2021 21:36 EST CR Pelvis 1 or 2 Views [id number] -JOSI BHATTI CPT code 54894 Reason For Exam (CR Pelvis 1 or 2 Views) PACU XR, low pelvis XR Report PELVIS SINGLE VIEW. LEFT FEMUR 2 VIEWS CLINICAL INDICATION: PACU XR, low pelvis XR TECHNIQUE: Single, AP view of the pelvis; 2 views of the left femur. COMPARISON: May,. FINDINGS: Status post placement of longstem left hip arthroplasty transfixing subtrochanteric fracture. Hardware appears grossly intact and fracture fragments in close apposition. Distal femur grossly intact. No dislocation. Postsurgical changes in the overlying and surrounding soft tissues. IMPRESSION: 1. Postsurgical change compatible with status post ORIF of left subtrochanteric femoral fracture. Report Dictated on Workstation: [email or web address] Final Dictated: 06/08/2021 9:02 pm Dictating Physician: MD YUAN WENDELL Signed Date and Time: 06/08/2021 9:05 pm Signed by: MD YUAN WENDELL Transcribed Date and Time: 06/08/2021 9:02 Normal [facility] Chloride, Random Urineon Chloride 26 mmol/L 19 - 209 mmol/L [facility] Chloride, Ur Randomon 2021 Chloride [Moles/Vol] 26 mmol/L Normal 19-209 [facility] Comment on above: Performed By: #### H EMDF, BMP3 #### [address] [address] No Panel Informationon 06-08 Radiology Study observation (narrative) [facility] Work Phone: Test Performed by [facility] [place] [facility], [address] [place] [id number] [place] [address] LAB [facility] Op Noteon 06-08-2021 Op Note [facility] H[address] TELEMETRY [address] [place] [id number] Dept: [phone] Loc: [phone] Operative Report Patient Name: Debra Cole Date of : 1940 Date of Surgery: 06/08/21 Pre-operative diagnosis: Left displaced femoral neck and peritrochanteric fracture with previous femoral neck malunion Post-operative diagnosis: Same Procedure(s): 1. Diaphyseal fit stem hemiarthroplasty of left hip 2. Open reduction internal fixation of left greater trochanteric/peritrochan teric femur fracture Surgeon: Fernando Catherine M.D. Railroad Auditor(s): Lawrence Hollins M.D. and Josi Bhatti M.D. Anesthesia: General EBL: 200cc IVF: Crystalloid Medications: One gram of Cefazolin was given. Implants: Manuel rastafari modular stem, 155 conical stem, 19 mm +0 cone body, 45 mm +0 head Justification for use of modifier-22: I estimate this procedure to be approximately 20% more difficult than a standard procedure with the same CPT code and therefore request the same percentage increase in payment/wRVU credit for the following reasons: Given the complex proximal femur fracture as well as the prior femoral neck malunion, this procedure was not a standard hemiarthroplasty and instead required a long diaphyseal fit stem after reconstruction of the greater trochanteric fragment in order to industrial staff nurse leg length, offset, and anteversion. Clinical History/Indication for Surgery The patient is a 81 y.o. year old female who was presents for operative fixation of a displaced femoral neck and peritrochanteric fracture complicated by a prior femoral neck malunion.. Typical indications for surgery were reviewed and a diaphyseal fit stem type hemiarthroplasty was recommended with fixation of the greater trochanteric fragments using cable attendance officer and possibly lateral plate construct. Risks of surgery in general were reviewed including, but not limited to, infection, fracture, subsidence, instability, need for additional procedures, failure of fixation which would require revision, damage to normal structures as well as medical complications such as [place], stroke, PE, DVT, and even . Patient and any family present were given opportunity to ask questions and consider her options ultimately electing to proceed with surgery. No guarantees were given or implied. Operative Narration The patient was identified in the pre-operative holding area. The surgical site was identified and marked. Informed consent was obtained. The patient was then brought to the operating room and placed supine on the operating table. Anesthesia was administered and care of the head, neck, and airway was maintained by the anesthesia staff throughout the entire procedure. Patient was turned lateral decubitus with the operative hip facing up. Axillary roll was placed. All bony prominences were identified and padded. The operative leg was prepped and draped in the usual sterile fashion. A surgical timeout was performed. Antibiotics were confirmed to have been given. A posterior approach to the hip was made incising skin and subcutaneous tissues down to the iliotibial band. This was divided in line with skin and carried into the gluteus randy fascia. The muscle was split along its fibers with finger dissection. The Charnley was placed after palpating and protecting the sciatic nerve. With the medius retracted, the short external rotators and posterior hip capsule were reflected from the posterior femoral neck until the lesser could be palpated and the hip was exposed. This dissection was curved posteriorly along the superior margin of the piriformis. Labrum was not incised. The femoral head and neck fragment was fractured and was removed and sized and any remaining neck fragments were excised. Two tagging sutures were placed into the piriformis and posterior capsule for later repair through drill holes. The greater trochanter fragment was mobilized and cleaned of hematoma using a curette. The apex of this fragment was clamped to the proximal femur and a single cable double bottom driver placed around this with care taken to dissect and ensure that the passer was directly on bone with no intervening soft tissues. This was tightened which held the greater trochanter at its correct height and allowed for the preparation of the proximal femur. There was additional comminution involving the posterior cortex of the proximal femur and lesser trochanter. This was multifragmentary. With the leg internally rotated, the proximal femur was prepared using the baton reamers. Significant chatter was obtained at 15 mm therefore a 15 mm conical stem was impacted into place. The reaming guide kayden was then assembled and the proximal femur reamed with a 19 mm reamer. A trial body was then assembled and with a +0 body and standard femoral head, the hip was reduced. Leg lengths still palpated to be short however (more content not included)... Normal [facility] Osmolality, Urineon 06-08-19 22 Osmolality, Ur 656 mosm/kg 300 - 1000 mosm/kg [facility] Comment on above: Repeated Test Performed by [address] LAB [facility] Osmolality,Urineon 2 Osmolality,Urine 656 mosm/kg Normal 300-1000 [facility] Comment on above: Result Comment: Repe ated Performed By: #### H KELLY FENTON3 #### [address] Sodiumon 06-08-2021 Sodium [Moles/Vol] 126 mmol/L Low 135-145 [facility] Comment on above: Performed By: #### H KELLY FENTON3 #### [address] Interpretation and review of laboratory results Abnormal [facility] Sodium [Moles/Vol] 126 mmol/L Low 135 - 145 mmol/L [facility] Test Performed by [facility] [place] [facility], [address] [place] [id number] [place] [address] [facility] Sodium [Moles/Vol] 129 mmol/L Low 135-145 [facility] Comment on above: Performed By: #### H KELLY FENTON3 #### [address] [address] Interpretation and review of laboratory results Abnormal [facility] Sodium [Moles/Vol] 129 mmol/L Low 135 - 145 mmol/L [facility] Test Performed by [facility] [place] [facility], [address] [place] [id number] [facility] Sodium, Ur Randomon 06-08-19 Sodium [Moles/Vol] 15 mmol/L Low 30-90 [facility] Comment on above: Performed By: #### H EMDKELLY Chacon3 #### [address] [address] Sodium, urine, randomon 05-26 Interpretation and review of laboratory results Abnormal [facility] Sodium (U) [Moles/Vol] 15 mmol/L Low 30 - 90 mmol/L [facility] XR FEMUR LEFT (MIN 2 VIEWS)o n 06-08-2021 Patient Name: DEBRA RAMIREZ Diagnostic Radiology ACCESSION EXAM DATE/TIME PROCEDURE ORDERING PROVIDER [id number] 06/08/2021 21:36 EST CR Femur 2+ Views Left n [id number] -JOSI BHATTI CPT code 09267 Reason For Exam (CR Femur 2+ Views Left n) s/p L lyn, please include entire implant, PACU XR Report PELVIS SINGLE VIEW. LEFT FEMUR 2 VIEWS CLINICAL INDICATION: PACU XR, low pelvis XR TECHNIQUE: Single, AP view of the pelvis; 2 views of the left femur. COMPARISON: May,. FINDINGS: Status post placement of longstem left hip arthroplasty transfixing subtrochanteric fracture. Hardware appears grossly intact and fracture fragments in close apposition. Distal femur grossly intact. No dislocation. Postsurgical changes in the overlying and surrounding soft tissues. IMPRESSION: 1. Postsurgical change compatible with status post ORIF of left subtrochanteric femoral fracture. Report Dictated on Workstation: [email or web address] --- Final --- Dictated: 06/08/2021 9:02 pm Dictating Physician: MD YUAN WENDELL Signed Date and Time: 06/08/2021 9:05 pm Signed by: MD YUAN WENDELL Transcribed Date and Time: 06/08/2021 9:02 [facility] - 06/08/2021 Patient Name: DEBRA COLE Diagnostic Radiology ACCESSION EXAM DATE/TIME PROCEDURE ORDERING PROVIDER [id number] 06/08/2021 21:36 EST CR Femur 2+ Views Left n [id number] -JOSI BHATTI CPT code 30511 Reason For Exam (CR Femur 2+ Views Left n) s/p L lyn, please include entire implant, PACU XR Report PELVIS SINGLE VIEW. LEFT FEMUR 2 VIEWS CLINICAL INDICATION: PACU XR, low pelvis XR TECHNIQUE: Single, AP view of the pelvis; 2 views of the left femur. COMPARISON: May,. FINDINGS: Status post placement of longstem left hip arthroplasty transfixing subtrochanteric fracture. Hardware appears grossly intact and fracture fragments in close apposition. Distal femur grossly intact. No dislocation. Postsurgical changes in the overlying and surrounding soft tissues. IMPRESSION: 1. Postsurgical change compatible with status post ORIF of left subtrochanteric femoral fracture. Report Dictated on Workstation: [email or web address] --- Final --- Dictated: 06/08/2021 9:02 pm Dictating Physician: MD YUAN WENDELL Signed Date and Time: 06/08/2021 9:05 pm Signed by: MD YUAN WENDELL Transcribed Date and Time: 06/08/2021 9:02 [facility] Work Phone: [facility] Work Phone: XR PELVIS (1-2 VW)on Patient Name: DEBRA RAMIREZ Diagnostic Radiology ACCESSION EXAM DATE/TIME PROCEDURE ORDERING PROVIDER [id number] 06/08/2021 21:36 EST CR Pelvis 1 or 2 Views [id number] -JOSI BHATTI CPT code 56201 Reason For Exam (CR Pelvis 1 or 2 Views) PACU XR, low pelvis XR Report PELVIS SINGLE VIEW. LEFT FEMUR 2 VIEWS CLINICAL INDICATION: PACU XR, low pelvis XR TECHNIQUE: Single, AP view of the pelvis; 2 views of the left femur. COMPARISON: May,. FINDINGS: Status post placement of longstem left hip arthroplasty transfixing subtrochanteric fracture. Hardware appears grossly intact and fracture fragments in close apposition. Distal femur grossly intact. No dislocation. Postsurgical changes in the overlying and surrounding soft tissues. IMPRESSION: 1. Postsurgical change compatible with status post ORIF of left subtrochanteric femoral fracture. Report Dictated on Workstation: [email or web address] --- Final --- Dictated: 06/08/2021 9:02 pm Dictating Physician: MD YUAN WENDELL Signed Date and Time: 06/08/2021 9:05 pm Signed by: MD YUAN WENDELL Transcribed Date and Time: 06/08/2021 9:02 [facility] Dariel Yuan MD - 06/08/2021 Patient Name: DEBRA COLE Diagnostic Radiology ACCESSION EXAM DATE/TIME PROCEDURE ORDERING PROVIDER [id number] 06/08/2021 21:36 EST CR Pelvis 1 or 2 Views [id number] -JOSI BHATTI CPT code 69117 Reason For Exam (CR Pelvis 1 or 2 Views) PACU XR, low pelvis XR Report PELVIS SINGLE VIEW. LEFT FEMUR 2 VIEWS CLINICAL INDICATION: PACU XR, low pelvis XR TECHNIQUE: Single, AP view of the pelvis; 2 views of the left femur. COMPARISON: May,. FINDINGS: Status post placement of longstem left hip arthroplasty transfixing subtrochanteric fracture. Hardware appears grossly intact and fracture fragments in close apposition. Distal femur grossly intact. No dislocation. Postsurgical changes in the overlying and surrounding soft tissues. IMPRESSION: 1. Postsurgical change compatible with status post ORIF of left subtrochanteric femoral fracture. Report Dictated on Workstation: [email or web address] --- Final --- Dictated: 06/08/2021 9:02 pm Dictating Physician: MD YUAN WENDELL Signed Date and Time: 06/08/2021 9:05 pm Signed by: MD YUAN WENDELL Transcribed Date and Time: 06/08/2021 9:02 [facility] Work Phone: XR PELVIS (1-2 VW)Ordered By : Dariel Yuan on 06-08-2021 [facility] Work Phone: Basic Metabolic Panelon 05-26 Anion gap [Moles/Vol] 1 mmol/L Low 3-13 [facility] Comment on above: Performed By: #### H EMDF, BMP3 #### [facility] [address] [place] [address] Calcium [Mass/Vol] 8.4 mg/dL Normal 8.4-10.4 [facility] Comment on above: Performed By: #### H EMDF, BMP3 #### [facility] [address] [place] [address] CO2 [Moles/Vol] 29 mmol/L Normal 22-30 [facility] Comment on above: Performed By: #### H EMDF, BMP3 #### [facility] [address] [place] [address] Creatinine [Mass/Vol] 0.95 mg/dL Normal 0.52-1.25 [facility] Comment on above: Performed By: #### H EMDF, BMP3 #### [facility] [address] [place] [address] GFR/1.73 sq M.predicted among blacks MDRD (S/P/Bld) [Vol rate/Area] 65.4 mL/min/{1.73_m2} Normal >60 [facility] Comment on above: Performed By: #### H EMDF, BMP3 #### [facility] [address] [place] [address] GFR/1.73 sq M.predicted among non-blacks MDRD (S/P/Bld) [Vol rate/Area] 56.5 mL/min/{1.73_m2} Abnormal >60 [facility] Comment on above: Result Comment: KDIG O guidelines provide the following GFR categories: Stage GFR(ml/min/1.73 m2) Terms G1 >=90 Normal or high G2 60-89 Mildly decreased* G3a 45-59 Mildly to moderately decreased G3b 30-44 Moderately to severely decreased G4 15-29 Severely decreased G5 <15 Kidney failure *Relative to young adult level. In the absence of evidence of kidney damage, neither GFR category G1 nor G2 fulfill the criteria for CKD. The CKD-EPI equation is validated in individuals 18 years of age and older. Currently the best equation for estimating glomerular filtration rate (GFR) from serum creatinine in children is the Bedside Matamoros equation. It is less accurate in patients with extremes of muscle mass, restriction of dietary protein, ingestion of creatine, extra-renal metabolism of creatinine, or treatment with medications that affect renal tubular creatinine secretion. Performed By: #### H JOSSY BMP3 #### [address] [place], [place] Glucose [Mass/Vol] 107 mg/dL High 70-100 [facility] Comment on above: Performed By: #### H JOSSY BMP3 #### [address] [address] [place], [place] Urea nitrogen [Mass/Vol] 31 mg/dL High 9-20 [facility] Comment on above: Performed By: #### H JOSSY BMP3 #### [address] [address] [place], [place] Chloride [Moles/Vol] 96 mmol/L Low 98-107 [facility] Comment on above: Performed By: #### H JOSSY BMP3 #### [address] [address] [place], [place] Potassium [Moles/Vol] 4.3 mmol/L Normal 3.5-5.1 [facility] Comment on above: Performed By: #### H JOSSY BMP3 #### [address] Sodium [Moles/Vol] 126 mmol/L Low 135-145 [facility] Comment on above: Performed By: #### H JOSSY BMP3 #### [address] Basic Metabolic Panel w/ Ref baron to MGon 06-07-2021 Anion gap [Moles/Vol] 1 mmol/L Low 3 - 13 mmol/L [facility] Calcium [Mass/Vol] 8.4 mg/dL 8.4 - 10. 4 mg/dL [facility] Chloride [Moles/Vol] 96 mmol/L Low 98 - 10 7 mmol/L [facility] CO2 [Moles/Vol] 29 mmol/L 22 - 30 mmol/L [facility] Creatinine [Mass/Vol] 0.95 mg/dL 0.52 - 1.25 mg/dL [facility] EGFR IF NonAfrican [place] 56.5 mL/min Abnormal >60 [facility] Comment on above: KDIGO guidelines pro vide the following GFR categories: Stage GFR(ml/min/1.73 m2) Terms G1 >=90 Normal or high G2 60-89 Mildly decreased* G3a 45-59 Mildly to moderately decreased G3b 30-44 Moderately to severely decreased G4 15-29 Severely decreased G5 <15 Kidney failure *Relative to young adult level. In the absence of evidence of kidney damage, neither GFR category G1 nor G2 fulfill the criteria for CKD. The CKD-EPI equation is validated in individuals 18 years of age and older. Currently the best equation for estimating glomerular filtration rate (GFR) from serum creatinine in children is the Bedside Matamoros equation. It is less accurate in patients with extremes of muscle mass, restriction of dietary protein, ingestion of creatine, extra-renal metabolism of creatinine, or treatment with medications that affect renal tubular creatinine secretion. GFR/1.73 sq M.predicted among blacks MDRD (S/P/Bld) [Vol rate/Area] 65.4 mL/min/{1.73_m2} >60 [facility] Glucose [Mass/Vol] 107 mg/dL High 70 - 100 mg/dL [facility] Interpretation and review of laboratory results Abnormal [facility] Potassium [Moles/Vol] 4.3 mmol/L 3.5 - 5.1 mmol/L [facility] Sodium [Moles/Vol] 126 mmol/L Low 135 - 145 mmol/L [facility] Urea nitrogen (BldV) [Mass/Vol] 31 mg/dL High 9 - 20 mg/dL [facility] Test Performed by [facility] [place] [facility], [address] [place] [id number] [place] [address] [facility] CBC Auto Differentialon 05-26 Absolute Baso # 0.1 10*3/uL 0.0 - 0.2 10*3/uL [facility] Absolute Neut # 5.8 10*3/uL 1.8 - 7.0 10*3/uL [facility] Basophils/100 WBC (Bld) 1.0 % 0.0 - 2.0 % [facility] Eosinophils (Bld) [#/Vol] 0.1 10*3/uL 0.0 - 0.5 10*3/uL [facility] Eosinophils/100 WBC (Bld) 1.3 % 1.0 - 6.0 % [facility] Granulocytes/100 WBC (Bld) 75.4 % 40.0 - 80.0 % [facility] Hematocrit (Bld) [Volume fraction] 30.5 % Low 35.0 - 47.0 % [facility] Hemoglobin.gastrointe stinal spec 1 Ql (Stl) 10.2 g/dL Low 11.7 - 16.0 g/dL [facility] Interpretation and review of laboratory results Abnormal [facility] Lymphocytes (Bld) [#/Vol] 0.9 10*3/uL Low 1.0 - 4.3 10*3/uL [facility] Lymphocytes/100 WBC (Bld) 11.8 % Low 20.0 - 40.0 % [facility] MCH (RBC) [Entitic mass] 30.1 pg 26.0 - 34.0 pg [facility] MCHC (RBC) [Mass/Vol] 33.5 % 32.0 - 36.0 % [facility] MCV (RBC) [Entitic vol] 90.0 fL 79.0 - 98.0 fL [facility] Monocytes (Bld) [#/Vol] 0.8 10*3/uL 0.0 - 0.8 10*3/uL [facility] Monocytes/100 WBC (Bld) 10.5 % High 2.0 - 10.0 % [facility] Platelet distribution width (Bld) [Ratio] 18.4 % High 11.5 - 14.5 % [facility] Platelet mean volume (Bld) [Entitic vol] 7.7 fL 7.4 - 10.4 fL [facility] Platelets (Bld) [#/Vol] 258 10*3/uL 140 - 440 10*3/uL [facility] RBC (Bld) [#/Vol] 3.38 10*6/uL Low 3.80 - 5.2 0 10*6/uL [facility] WBC (Bld) [#/Vol] 7.8 10*3/uL 3.6 - 10.7 10*3/uL [facility] Test Performed by [facility] [place] [facility], [address] [place] [id number] [facility] CREATININE, RANDOM URINEon 0 06-07-2021 Creatinine (U) [Mass/Vol] 135.4 mg/dL No Range [facility] Creatinine, Ur Randomon 05-26 Creatinine, Ur Random 135.4 mg/dL Normal No Range [facility] [place] [facility] Comment on above: Performed By: #### H EMDF, BMP3 #### [address] [address] [address] EKG 12 [place]on 06-07-2021 [facility] Test Date: 2021-06-06 Pat Name: DEBRA COLE Department: [facility] Room: [facility] Gender: F Superintendent Menagerie: TITO : 1940 Requested By: ISAAK PALMA Order Number: [id number] Reading MD: Anibal Pedro Measurements Intervals [place] Rate: 61 P: 73 HI: 198 QRS: 98 QRSD: 86 T: 67 QT: 434 QTc: 438 Interpretive Statements Sinus rhythm Anterior infarct, old Electronically Signed On 06-07-2021 8:23:32 EST by Anibal Pedro [facility] Anibal Pedro MD - 06/07/2021 [facility] Test Date: 2021-06-06 Pat Name: DEBRA SANCHEZNING Department: 1A6 Room: [facility] Gender: F Superintendent Menagerie: TITO : 1940 Requested By: ISAAK PALMA Order Number: [id number] Reading : Anibal Pedro Measurements Intervals [place] Rate: 61 P: 73 HI: 198 QRS: 98 QRSD: 86 T: 67 QT: 434 QTc: 438 Interpretive Statements Sinus rhythm Anterior infarct, old Electronically Signed On 06-07-2021 8:23:32 EST by Anibal Pedro [facility] Work Phone: EKG 12 LeadOrdered By: Anibal Pedro on 06-07-2021 [facility] Work Phone: Hemogram w/ Autodiffon 06-07 Abs Baso Cnt 0.1 10*3/uL Normal 0.0-0.2 [facility] Comment on above: Performed By: #### H EMDF, BMP3 #### [facility] [address] [place] [address] Abs Neutrophile Cnt 5.8 10*3/uL Normal 1.8-7.0 [facility] Comment on above: Performed By: #### H EMDF, BMP3 #### [address] [place] [address] Basophils/100 WBC (Bld) 1.0 % Normal 0.0-2.0 [facility] Comment on above: Performed By: #### H EMDF, BMP3 #### [address] [place] [address] Eosinophils (Bld) [#/Vol] 0.1 10*3/uL Normal 0.0-0.5 [facility] Comment on above: Performed By: #### H EMDF, BMP3 #### [facility] [address] [place] [address] Eosinophils/100 WBC (Bld) 1.3 % Normal 1.0-6.0 [facility] Comment on above: Performed By: #### H EMDF, BMP3 #### [facility] [address] [place] [address] Erythrocyte distribution width (RBC) [Ratio] 18.4 % High 11.5-14.5 [facility] Comment on above: Performed By: #### H EMDF, BMP3 #### [facility] [address] [place] [address] Granulocytes/100 WBC (Bld) 75.4 % Normal 40.0-80.0 [facility] Comment on above: Performed By: #### H EMDF, BMP3 #### [address] [place] [address] Hematocrit (Bld) [Volume fraction] 30.5 % Low 35.0-47.0 [facility] Comment on above: Performed By: #### H EMDF BMP3 #### [address] [place], [place] Hemoglobin (Bld) [Mass/Vol] 10.2 g/dL Low 11.7-16.0 [facility] Comment on above: Performed By: #### H EMDF, BMP3 #### [address] [place], [place] Lymphocytes (Bld) [#/Vol] 0.9 10*3/uL Low 1.0-4.3 [facility] Comment on above: Performed By: #### H JOSSY BMP3 #### [address] Lymphocytes/100 WBC (Bld) 11.8 % Low 20.0-40.0 [facility] Comment on above: Performed By: #### H JOSSY BMP3 #### [address] MCH (RBC) [Entitic mass] 30.1 pg Normal 26.0-34.0 [facility] Comment on above: Performed By: #### H JOSSY BMP3 #### [address] MCHC 33.5 % Normal 32.0-36.0 [facility] Comment on above: Performed By: #### H EMDF BMP3 #### [address] MCV (RBC) [Entitic vol] 90.0 fL Normal 79.0-98.0 [facility] Comment on above: Performed By: #### H EMDF, BMP3 #### [address] Monocytes (Bld) [#/Vol] 0.8 10*3/uL Normal 0.0-0.8 [facility] Comment on above: Performed By: #### H EMDF, BMP3 #### [address] Monocytes/100 WBC (Bld) 10.5 % High 2.0-10.0 [facility] Comment on above: Performed By: #### H JOSSY BMP3 #### [address] [place], [place] Platelet mean volume (Bld) [Entitic vol] 7.7 fL Normal 7.4-10.4 [facility] Comment on above: Performed By: #### H JOSSY BMP3 #### [address] [place], [place] Platelets (Bld) [#/Vol] 258 10*3/uL Normal 140-440 [facility] Comment on above: Performed By: #### Drake FENTON BMP3 #### [address] [place], [place] RBC (Bld) [#/Vol] 3.38 10*6/uL Low 3.80-5.20 [facility] Comment on above: Performed By: #### Drake FENTON BMP3 #### [address] WBC (Bld) [#/Vol] 7.8 10*3/uL Normal 3.6-10.7 [facility] Comment on above: Performed By: #### Drake FENTON BMP3 #### [address] No Panel Informationon 06-07 Test Performed by [id number] [place] [address] [facility] Osmolality, Urineon 06-07-19 22 Osmolality, Ur 618 mosm/kg 300 - 1000 mosm/kg [facility] Test Performed by [id number] [place] [address] [facility] Osmolality,Urineon 2 Osmolality,Urine 618 mosm/kg Normal 300-1000 [facility] Comment on above: Performed By: #### H JOSSY BMP3 #### [address] Sodiumon 06-07-2021 Sodium [Moles/Vol] 130 mmol/L Low 135-145 [facility] Comment on above: Performed By: #### H KELLY FENTON3 #### [address] [address] Interpretation and review of laboratory results Abnormal [facility] Sodium [Moles/Vol] 130 mmol/L Low 135 - 145 mmol/L [facility] Test Performed by [id number] [place] [address] [facility] Sodium [Moles/Vol] 129 mmol/L Low 135-145 [facility] Comment on above: Performed By: #### H KELLY FENTON3 #### [address] Interpretation and review of laboratory results Abnormal [facility] Sodium [Moles/Vol] 129 mmol/L Low 135 - 145 mmol/L [facility] Test Performed by [id number] [place] [address] [facility] Sodium, Ur Randomon 06-07-19 22 Sodium [Moles/Vol] 18 mmol/L Low 30-90 [facility] Comment on above: Performed By: #### H KELLY FENTON3 #### [address] Sodium, Urine, Randomon 05-26 Interpretation and review of laboratory results Abnormal [facility] Sodium (U) [Moles/Vol] 18 mmol/L Low 30 - 90 mmol/L [facility] ANTIBODY IDENTIFICATIONon Antibody ID POS, ANTI C POS, ANTI D [facility] Antibody Identificationon Antibody Identification Antibody Identification: POS, ANTI C POS, ANTI D Normal [facility] Comment on above: Performed By: #### H CHEYENNE, PT, CMP3M #### [address] [address] Basic Metabolic Panelon 05-26 Anion gap [Moles/Vol] 1 mmol/L Low - [facility] Comment on above: Performed By: #### H JOSSY BMP3 #### [address] [place] [address] Calcium [Mass/Vol] 8.6 mg/dL Normal 8.4-10.4 [facility] Comment on above: Performed By: #### H JOSSY BMP3 #### [facility] [address] [place] [address] CO2 [Moles/Vol] 34 mmol/L High 22-30 [facility] Comment on above: Performed By: #### H JOSSY, BMP3 #### [facility] [address] [place] [address] Glucose [Mass/Vol] 94 mg/dL Normal 70-100 [facility] Comment on above: Performed By: #### H JOSSY, BMP3 #### [facility] [address] [place] [address] Urea nitrogen [Mass/Vol] 25 mg/dL High 9-20 [facility] Comment on above: Performed By: #### H JOSSY BMP3 #### [facility] [address] [place] [address] Creatinine [Mass/Vol] 0.91 mg/dL Normal 0.52-1.25 [facility] Comment on above: Performed By: #### H JOSSY, BMP3 #### [facility] [address] [place] [address] GFR/1.73 sq M.predicted among blacks MDRD (S/P/Bld) [Vol rate/Area] 68.9 mL/min/{1.73_m2} Normal >60 [facility] Comment on above: Performed By: #### H JOSSY, BMP3 #### [facility] [address] [place] [address] GFR/1.73 sq M.predicted among non-blacks MDRD (S/P/Bld) [Vol rate/Area] 59.5 mL/min/{1.73_m2} Abnormal >60 [facility] Comment on above: Result Comment: KDIG O guidelines provide the following GFR categories: Stage GFR(ml/min/1.73 m2) Terms G1 >=90 Normal or high G2 60-89 Mildly decreased* G3a 45-59 Mildly to moderately decreased G3b 30-44 Moderately to severely decreased G4 15-29 Severely decreased G5 <15 Kidney failure *Relative to young adult level. In the absence of evidence of kidney damage, neither GFR category G1 nor G2 fulfill the criteria for CKD. The CKD-EPI equation is validated in individuals 18 years of age and older. Currently the best equation for estimating glomerular filtration rate (GFR) from serum creatinine in children is the Bedside Matamoros equation. It is less accurate in patients with extremes of muscle mass, restriction of dietary protein, ingestion of creatine, extra-renal metabolism of creatinine, or treatment with medications that affect renal tubular creatinine secretion. Performed By: #### H KELYL FENTON3 #### [address] Chloride [Moles/Vol] 94 mmol/L Low 98-107 [facility] Comment on above: Performed By: #### H JOSSY BMP3 #### [address] Potassium [Moles/Vol] 4.1 mmol/L Normal 3.5-5.1 [facility] Comment on above: Performed By: #### H JOSSY BMP3 #### [address] Sodium [Moles/Vol] 129 mmol/L Low 135-145 [facility] Comment on above: Performed By: #### H JOSSY BMP3 #### [address] Basic Metabolic Panel w/ Ref baron to MGon 06-06-2021 Anion gap [Moles/Vol] 1 mmol/L Low 3 - 13 mmol/L [facility] Calcium [Mass/Vol] 8.6 mg/dL 8.4 - 10. 4 mg/dL [facility] Chloride [Moles/Vol] 94 mmol/L Low 98 - 10 7 mmol/L [facility] CO2 [Moles/Vol] 34 mmol/L High 22 - 30 mmol/L [facility] Creatinine [Mass/Vol] 0.91 mg/dL 0.52 - 1.25 mg/dL [facility] IF NonAfrican [place] 59.5 mL/min Abnormal >60 [facility] Comment on above: KDIGO guidelines pro vide the following GFR categories: Stage GFR(ml/min/1.73 m2) Terms G1 >=90 Normal or high G2 60-89 Mildly decreased* G3a 45-59 Mildly to moderately decreased G3b 30-44 Moderately to severely decreased G4 15-29 Severely decreased G5 <15 Kidney failure *Relative to young adult level. In the absence of evidence of kidney damage, neither GFR category G1 nor G2 fulfill the criteria for CKD. The CKD-EPI equation is validated in individuals 18 years of age and older. Currently the best equation for estimating glomerular filtration rate (GFR) from serum creatinine in children is the Bedside Matamoros equation. It is less accurate in patients with extremes of muscle mass, restriction of dietary protein, ingestion of creatine, extra-renal metabolism of creatinine, or treatment with medications that affect renal tubular creatinine secretion. GFR/1.73 sq M.predicted among blacks MDRD (S/P/Bld) [Vol rate/Area] 68.9 mL/min/{1.73_m2} >60 [facility] Glucose [Mass/Vol] 94 mg/dL 70 - 100 mg/dL [facility] Interpretation and review of laboratory results Abnormal [facility] Potassium [Moles/Vol] 4.1 mmol/L 3.5 - 5.1 mmol/L [facility] Sodium [Moles/Vol] 129 mmol/L Low 135 - 145 mmol/L [facility] Urea nitrogen (BldV) [Mass/Vol] 25 mg/dL High 9 - 20 mg/dL [facility] Test Performed by [facility] [place] [facility], [address] [place] [address] [facility] C Antigenon 06-06-2021 C Antigen C Antigen : NEG Normal [facility] Comment on above: Performed By: #### H EMOG, PT, CMP3M #### [address] [address] C Antigen Typingon 2 C Antigen Negative [facility] CBCon 06-06-2021 Hematocrit (Bld) [Volume fraction] 34.6 % Low 35.0 - 47.0 % [facility] Hemoglobin.gastrointe stinal spec 1 Ql (Stl) 11.2 g/dL Low 11.7 - 16.0 g/dL [facility] Interpretation and review of laboratory results Abnormal [facility] MCH (RBC) [Entitic mass] 29.3 pg 26.0 - 34.0 pg [facility] MCHC (RBC) [Mass/Vol] 32.4 % 32.0 - 36.0 % [facility] MCV (RBC) [Entitic vol] 90.3 fL 79.0 - 98.0 fL [facility] Platelet distribution width (Bld) [Ratio] 18.0 % High 11.5 - 14.5 % [facility] Platelet mean volume (Bld) [Entitic vol] 7.7 fL 7.4 - 10.4 fL [facility] Platelets (Bld) [#/Vol] 321 10*3/uL 140 - 440 10*3/uL [facility] RBC (Bld) [#/Vol] 3.83 10*6/uL 3.80 - 5.2 0 10*6/uL [facility] WBC (Bld) [#/Vol] 8.7 10*3/uL 3.6 - 10.7 10*3/uL [facility] Test Performed by [id number] [place] [address] [facility] CR Hip w/ Pelvis 1 View Left on 06-06-2021 CR Hip w/ Pelvis 1 View Left Patient Name: DEBRA COLE Diagnostic Radiology ACCESSION EXAM DATE/TIME PROCEDURE ORDERING PROVIDER [id number] 06/06/2021 02:02 EST CR Hip w/ Pelvis 1 View [id number] -MIRTA NICA Left n CPT code 71040 Reason For Exam (CR Hip w/ Pelvis 1 View Left n) traction view, left hip fracture Report PELVIS AND LEFT HIP: CLINICAL INDICATION: Traction view. TECHNIQUE: AP pelvis plus AP and lateral views of the left hip COMPARISON: 06/05/2021 FINDINGS: There is a subtrochanteric fracture of the left hip with angulation of the fracture fragments and superolateral displacement of the distal fracture fragment. Alignment is unchanged compared to pretraction radiograph. No dislocation. The sacroiliac joints are normal. No bone lesion is identified. There is no soft tissue abnormality. IMPRESSION: Displaced subtrochanteric fracture of the left hip with unchanged alignment compared to the pretraction radiograph. Report Dictated on Final Dictated: 06/06/2021 1:48 am Dictating Physician: MD SOMMER KEVIN Signed Date and Time: 06/06/2021 1:51 am Signed by: MD SOMMER KEVIN Transcribed Date and Time: 06/06/2021 1:48 [facility] [place] CT LOWER EXTREMITY LEFT ZA Cortez 06-06-2021 [id number] Tom[facility] ACCESSION EXAM DATE/TIME PROCEDURE ORDERING PROVIDER [id number] 06/06/2021 07:[address] Low Ext w/o Contrast [id number] -NICA KIRBY Left CPT code 33327 Reason For Exam (CT Low Ext w/o Contrast Left) Pre op planning. Need L hip with 1 mm cuts Report Exam Type: CT Low Ext w/o Contrast Left Exam Date and Time: 06/06/2021 7:08 AM EST Indication: Left hip fracture Comparison: None available. Technique: Axial CT imaging of the left hip was obtained without contrast, followed by coronal and sagittal reconstructions. 3D reconstructions were created by the interpreting radiologist on an independent workstation for further fracture evaluation. Findings: There is an acute comminuted apex anterior angulated intertrochanteric fracture with large fracture fragment displaced anteriorly. There is extension of the fracture into the proximal subtrochanteric diaphysis. Hip alignment is otherwise anatomic. No additional fracture or dislocation is seen. Associated greater trochanteric bursitis. 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 Atherosclerotic vascular calcifications. Esparza catheter in the bladder. Impression: Acute comminuted extremely angled fracture of the proximal left femur involving the intertrochanteric and subtrochanteric bone. Report Dictated on --- Final --- Dictated: 06/06/2021 8:56 am Dictating Physician: MD VILLARREAL NEIL Signed Date and Time: 06/06/2021 8:59 am Signed by: MD VILLARREAL NEIL Transcribed Date and Time: 06/06/2021 8:56 [facility] Carlos Alberto Villarreal MD - 06/06/2021 Patient Name: DEBRA COLE Computed Tomography ACCESSION EXAM DATE/TIME PROCEDURE ORDERING PROVIDER [id number] 06/06/2021 07:[address] Low Ext w/o Contrast [id number] MELENDEZ Left CPT code 45997 Reason For Exam (CT Low Ext w/o Contrast Left) Pre op planning. Need L hip with 1 mm cuts Report Exam Type: CT Low Ext w/o Contrast Left Exam Date and Time: 06/06/2021 7:08 AM EST Indication: Left hip fracture Comparison: None available. Technique: Axial CT imaging of the left hip was obtained without contrast, followed by coronal and sagittal reconstructions. 3D reconstructions were created by the interpreting radiologist on an independent workstation for further fracture evaluation. Findings: There is an acute comminuted apex anterior angulated intertrochanteric fracture with large fracture fragment displaced anteriorly. There is extension of the fracture into the proximal subtrochanteric diaphysis. Hip alignment is otherwise anatomic. No additional fracture or dislocation is seen. Associated greater trochanteric bursitis. 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 Atherosclerotic vascular calcifications. Esparza catheter in the bladder. Impression: Acute comminuted extremely angled fracture of the proximal left femur involving the intertrochanteric and subtrochanteric bone. Report Dictated on --- Final --- Dictated: 06/06/2021 8:56 am Dictating Physician: MD VILLARREAL NEIL Signed Date and Time: 06/06/2021 8:59 am Signed by: MD VILLARREAL NEIL Transcribed Date and Time: 06/06/2021 8:56 [facility] Work Phone: Radiology Study observation (narrative) [facility] Work Phone: CT LOWER EXTREMITY LEFT WO C ONTRASTOrdered By: Carlos Alberto Villarreal on 06-06-2021 [facility] Work Phone: CT Low Ext w/o Contrast Left on 06-06-2021 CT Low Ext w/o Contrast Left Patient Name: DEBRA COLE Computed Tomography ACCESSION EXAM DATE/TIME PROCEDURE ORDERING PROVIDER [id number] 06/06/2021 07:[address] Low Ext w/o Contrast [id number] EDUARDO CPT code 81949 Reason For Exam (CT Low Ext w/o Contrast Left) Pre op planning. Need L hip with 1 mm cuts Report Exam Type: CT Low Ext w/o Contrast Left Exam Date and Time: 06/06/2021 7:08 AM EST Indication: Left hip fracture Comparison: None available. Technique: Axial CT imaging of the left hip was obtained without contrast, followed by coronal and sagittal reconstructions. 3D reconstructions were created by the interpreting radiologist on an independent workstation for further fracture evaluation. Findings: There is an acute comminuted apex anterior angulated intertrochanteric fracture with large fracture fragment displaced anteriorly. There is extension of the fracture into the proximal subtrochanteric diaphysis. Hip alignment is otherwise anatomic. No additional fracture or dislocation is seen. Associated greater trochanteric bursitis. 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 Atherosclerotic vascular calcifications. Esparza catheter in the bladder. Impression: Acute comminuted extremely angled fracture of the proximal left femur involving the intertrochanteric and subtrochanteric bone. Report Dictated on Final Dictated: 06/06/2021 8:56 am Dictating Physician: MD VILLARREAL NEIL Signed Date and Time: 06/06/2021 8:59 am Signed by: MD VILLARREAL NEIL Transcribed Date and Time: 06/06/2021 8:56 Normal [facility] Comp Panel with Mg Reflexon 06-06-2021 Calcium [Mass/Vol] 8.8 mg/dL Normal 8.4-10.4 [facility] Comment on above: Performed By: #### H CHEYENNE PT, CMP3M #### [address] [address] ALP [Catalytic activity/Vol] 74 U/L Normal 38-126 [facility] Comment on above: Result Comment: Mode rately hemolysed, interpret with caution. Performed By: #### H MATHEUSG PT, CMP3M #### [facility] [address], [place] ALT [Catalytic activity/Vol] 20 U/L Normal 0-34 [facility] Comment on above: Result Comment: The ALT test is performed by an updated assay method. Please note that the reference intervals have been changed and are now sex specific. Performed By: #### H EMOG, PT, CMP3M #### [address] [place], [place] Anion gap [Moles/Vol] 5 mmol/L Normal 3-13 [facility] Comment on above: Performed By: #### H EMOG, PT, CMP3M #### [address] [place], [place] AST [Catalytic activity/Vol] 47 U/L High 15-46 [facility] Comment on above: Result Comment: Mode rately hemolysed, interpret with caution. Performed By: #### H EMOG, PT, CMP3M #### [address] [place], [place] Bilirubin [Mass/Vol] 1.2 mg/dL Normal 0.2-1.3 [facility] Comment on above: Result Comment: Mode rately hemolysed, interpret with caution. Performed By: #### H EMOG, PT, CMP3M #### [address] [place], [place] CO2 [Moles/Vol] 27 mmol/L Normal 22-30 [facility] Comment on above: Performed By: #### H EMOG, PT, CMP3M #### [address] [place], [place] Creatinine [Mass/Vol] 0.67 mg/dL Normal 0.52-1.25 [facility] Comment on above: Performed By: #### H EMOG, PT, CMP3M #### [address] [place], [place] GFR/1.73 sq M.predicted among blacks MDRD (S/P/Bld) [Vol rate/Area] mL/min/{1.73_m2} Normal >60 [facility] Comment on above: Performed By: #### H DICK QUINN CMP3M #### [address] [address] GFR/1.73 sq M.predicted among non-blacks MDRD (S/P/Bld) [Vol rate/Area] 82.9 mL/min/{1.73_m2} Normal >60 [facility] Comment on above: Result Comment: KDIG O guidelines provide the following GFR categories: Stage GFR(ml/min/1.73 m2) Terms G1 >=90 Normal or high G2 60-89 Mildly decreased* G3a 45-59 Mildly to moderately decreased G3b 30-44 Moderately to severely decreased G4 15-29 Severely decreased G5 <15 Kidney failure *Relative to young adult level. In the absence of evidence of kidney damage, neither GFR category G1 nor G2 fulfill the criteria for CKD. The CKD-EPI equation is validated in individuals 18 years of age and older. Currently the best equation for estimating glomerular filtration rate (GFR) from serum creatinine in children is the Bedside Matamoros equation. It is less accurate in patients with extremes of muscle mass, restriction of dietary protein, ingestion of creatine, extra-renal metabolism of creatinine, or treatment with medications that affect renal tubular creatinine secretion. Performed By: #### H DICK QUINN CMP3M #### [address] Glucose [Mass/Vol] 86 mg/dL Normal 70-100 [facility] Comment on above: Performed By: #### H DICK QUINN CMP3M #### [address] [address] [place], [place] Protein [Mass/Vol] 6.4 g/dL Normal 6.3-8.2 [facility] Comment on above: Result Comment: Mode rately hemolysed, interpret with caution. Performed By: #### H DICK QUINN CMP3M #### [address] Urea nitrogen [Mass/Vol] 21 mg/dL High 9-20 [facility] Comment on above: Performed By: #### H DICK QUINN CMP3M #### [address] Albumin [Mass/Vol] 3.6 g/dL Normal 3.5-5.0 [facility] Comment on above: Result Comment: Mode rately hemolysed, interpret with caution. Performed By: #### H EMOG, PT, CMP3M #### [facility] [address], [place] Potassium [Moles/Vol] 4.8 mmol/L Normal 3.5-5.1 [facility] Comment on above: Result Comment: Mode rately hemolysed, interpret with caution. Performed By: #### H EMOG, PT, CMP3M #### [address] [place], [place] Sodium [Moles/Vol] 126 mmol/L Low 135-145 [facility] [facility] Comment on above: Performed By: #### H EMOG, PT, CMP3M #### [address] [address] [place], [place] Chloride [Moles/Vol] 95 mmol/L Low 98-107 [facility] Comment on above: Performed By: #### H EMOG, PT, CMP3M #### [address] [address] [place], [place] Comprehensive Metabolic Pane l w/ Reflex to MGon 06-06-2021 Albumin [Mass/Vol] 3.6 g/dL 3.5 - 5.0 g/dL [facility] Comment on above: Moderately hemolysed , interpret with caution. ALP (Bld) [Catalytic activity/Vol] 74 U/L 38 - 126 U/L [facility] Comment on above: Moderately hemolysed , interpret with caution. ALT [Catalytic activity/Vol] 20 U/L 0 - 34 U/L [facility] Comment on above: The ALT test is perf ormed by an updated assay method. Please note that the reference intervals have been changed and are now sex specific. Anion gap [Moles/Vol] 5 mmol/L 3 - 13 mmol/L [facility] AST [Catalytic activity/Vol] 47 U/L High 15 - 46 U/L [facility] Comment on above: Moderately hemolysed , interpret with caution. Bilirubin [Mass/Vol] 1.2 mg/dL 0.2 - 1 .3 mg/dL [facility] Comment on above: Moderately hemolysed , interpret with caution. Calcium [Mass/Vol] 8.8 mg/dL 8.4 - 10. 4 mg/dL [facility] Chloride [Moles/Vol] 95 mmol/L Low 98 - 10 7 mmol/L [facility] CO2 [Moles/Vol] 27 mmol/L 22 - 30 mmol/L [facility] Creatinine [Mass/Vol] 0.67 mg/dL 0.52 - 1.25 mg/dL [facility] EGFR IF NonAfrican [place] 82.9 mL/min >60 [facility] Comment on above: KDIGO guidelines pro vide the following GFR categories: Stage GFR(ml/min/1.73 m2) Terms G1 >=90 Normal or high G2 60-89 Mildly decreased* G3a 45-59 Mildly to moderately decreased G3b 30-44 Moderately to severely decreased G4 15-29 Severely decreased G5 <15 Kidney failure *Relative to young adult level. In the absence of evidence of kidney damage, neither GFR category G1 nor G2 fulfill the criteria for CKD. The CKD-EPI equation is validated in individuals 18 years of age and older. Currently the best equation for estimating glomerular filtration rate (GFR) from serum creatinine in children is the Bedside [place] equation. It is less accurate in patients with extremes of muscle mass, restriction of dietary protein, ingestion of creatine, extra-renal metabolism of creatinine, or treatment with medications that affect renal tubular creatinine secretion. Free PSA/Total PSA [Mass fraction] 6.4 g/dL 6.3 - 8.2 g/dL [facility] Comment on above: Moderately hemolysed , interpret with caution. GFR/1.73 sq M.predicted among blacks MDRD (S/P/Bld) [Vol rate/Area] mL/min/{1.73_m2} >60 mL/min [facility] Glucose [Mass/Vol] 86 mg/dL 70 - 100 mg/dL [facility] Interpretation and review of laboratory results Abnormal [facility] Potassium [Moles/Vol] 4.8 mmol/L 3.5 - 5.1 mmol/L [facility] Comment on above: Moderately hemolysed , interpret with caution. Sodium [Moles/Vol] 126 mmol/L Low 135 - 145 mmol/L [facility] Urea nitrogen (BldV) [Mass/Vol] 21 mg/dL High 9 - 20 mg/dL [facility] Test Performed by [facility] [place] [facility], [address] [place], [place] [id number] [place] [address] - [facility] Hemogramon 06-06-2021 Erythrocyte distribution width (RBC) [Ratio] 18.0 % High 11.5-14.5 [facility] Comment on above: Performed By: #### H EMOG, PT, CMP3M #### [address] Hematocrit (Bld) [Volume fraction] 34.6 % Low 35.0-47.0 [facility] Comment on above: Performed By: #### H EMOG, PT, CMP3M #### [address] Hemoglobin (Bld) [Mass/Vol] 11.2 g/dL Low 11.7-16.0 [facility] Comment on above: Performed By: #### H EMOG, PT, CMP3M #### [address] MCH (RBC) [Entitic mass] 29.3 pg Normal 26.0-34.0 [facility] Comment on above: Performed By: #### H EMOG, PT, CMP3M #### [address] MCHC 32.4 % Normal 32.0-36.0 [facility] Comment on above: Performed By: #### H EMOG, PT, CMP3M #### [address] MCV (RBC) [Entitic vol] 90.3 fL Normal 79.0-98.0 [facility] Comment on above: Performed By: #### H EMOG, PT, CMP3M #### [address] Platelet mean volume (Bld) [Entitic vol] 7.7 fL Normal 7.4-10.4 [facility] Comment on above: Performed By: #### H EMOG, PT, CMP3M #### [address] Platelets (Bld) [#/Vol] 321 10*3/uL Normal 140-440 [facility] Comment on above: Performed By: #### H CHEYENNE PT CMP3M #### [address] RBC (Bld) [#/Vol] 3.83 10*6/uL Normal 3.80-5.20 [facility] Comment on above: Performed By: #### H [place] PT, CMP3M #### [address] WBC (Bld) [#/Vol] 8.7 10*3/uL Normal 3.6-10.7 [facility] Comment on above: Performed By: #### H [place] PT CMP3M #### [address] No Panel Informationon 06-06 Test Performed by [id number] [place] [address] [facility] Osmolalityon 06-06-2021 Serum Osmolality 280 mosm/kg 280 - 300 mosm/kg [facility] Test Performed by [id number] [place] [address] [facility] Osmolality, Urineon 06-06-19 22 Osmolality, Ur 533 mosm/kg 300 - 1000 mosm/kg [facility] Test Performed by [id number] [place] [address] [facility] Osmolality,Serumon 2 Osmolality,Serum 280 mosm/kg Normal 280-300 [facility] Comment on above: Performed By: #### H EMDF BMP3 #### [address] Osmolality,Urineon 2 Osmolality,Urine 533 mosm/kg Normal 300-1000 [facility] Comment on above: Performed By: #### H EMDF BMP3 #### [address] Prothrombin Timeon INR 1.1 Normal 0.9-1.1 [facility] Comment on above: Result Comment: Terrance mmended Anticoagulant Therapy: SEE BELOW ----- INR of 2.0 - 3.0 : - Prophylaxis of Venous Thrombosis (high-risk surgery) - Treatment of Venous Thrombosis - Treatment of Pulmonary Embolism (Includes tissue heart valves, Acute Myocardial Infarction to prevent systemic embolism, Valvular Heart Disease, and Atrial Fibrillation) ----- INR of 2.5 - 3.5 : - Mechanical Prosthetic Valves (high risk) - If oral anticoagulant therapy is used to prevent Myocardial Infarction Performed By: #### H EMOG, PT, CMP3M #### [address] PT Coag (PPP) [Time] 11.3 s Normal 9.0-12.0 [facility] Comment on above: Result Comment: . Performed By: #### H EMOG, PT, CMP3M #### [address] Protime-INRon 06-06-2021 INR Coag (Bld) [Relative time] 1.1 {INR} [facility] Comment on above: Recommended Anticoag ulant Therapy: SEE BELOW ----- INR of 2.0 - 3.0 : - Prophylaxis of Venous Thrombosis (high-risk surgery) - Treatment of Venous Thrombosis - Treatment of Pulmonary Embolism (Includes tissue heart valves, Acute Myocardial Infarction to prevent systemic embolism, Valvular Heart Disease, and Atrial Fibrillation) ----- INR of 2.5 - 3.5 : - Mechanical Prosthetic Valves (high risk) - If oral anticoagulant therapy is used to prevent Myocardial Infarction PT Coag (PPP) [Time] 11.3 s 9.0 - 1 2.0 s [facility] Comment on above: . Test Performed by [address] - [facility] Sodium, Ur Randomon 06-06-19 22 Sodium [Moles/Vol] 28 mmol/L Low 30-90 [facility] Comment on above: Performed By: #### H EMDF, BMP3 #### [address] [id number] Sodium, Urine, Randomon 05-26 Interpretation and review of laboratory results Abnormal [facility] Sodium (U) [Moles/Vol] 28 mmol/L Low 30 - 90 mmol/L [facility] Test Performed by [facility] [place] [facility], [address] [place] [id number] [facility] TS GELon 06-06-2021 TS GEL ABO Group: O Rh, Gel: NEG Antibody Screen Gel: POS Normal [facility] Comment on above: Performed By: #### H EMOG, PT, CMP3M #### [address] [address] TYPE AND SCREENon 06-06-2021 ABO Grouping O [facility] Rh Type Negative [facility] Test Performed by [facility] [place] [facility], [address] [place] [id number] [facility] XR HIP 1 VW W PELVIS LEFTon 06-06-2021 Patient Name: DEBRA RAMIREZ Diagnostic Radiology ACCESSION EXAM DATE/TIME PROCEDURE ORDERING PROVIDER [id number] 06/06/2021 02:02 EST CR Hip w/ Pelvis 1 View [id number] -NICA KIRBY Left n CPT code 96731 Reason For Exam (CR Hip w/ Pelvis 1 View Left n) traction view, left hip fracture Report PELVIS AND LEFT HIP: CLINICAL INDICATION: Traction view. TECHNIQUE: AP pelvis plus AP and lateral views of the left hip COMPARISON: 06/05/2021 FINDINGS: There is a subtrochanteric fracture of the left hip with angulation of the fracture fragments and superolateral displacement of the distal fracture fragment. Alignment is unchanged compared to pretraction radiograph. No dislocation. The sacroiliac joints are normal. No bone lesion is identified. There is no soft tissue abnormality. IMPRESSION: Displaced subtrochanteric fracture of the left hip with unchanged alignment compared to the pretraction radiograph. Report Dictated on --- Final --- Dictated: 06/06/2021 1:48 am Dictating Physician: MD SOMMER KEVIN Signed Date and Time: 06/06/2021 1:51 am Signed by: MD SOMMER KEVIN Transcribed Date and Time: 06/06/2021 1:48 [facility] José Sommer MD - 06/06/2021 Patient Name: DEBRA COLE Diagnostic Radiology ACCESSION EXAM DATE/TIME PROCEDURE ORDERING PROVIDER [id number] 06/06/2021 02:02 EST CR Hip w/ Pelvis 1 View [id number] -SEGURMEETIK, NICA Left n CPT code 25316 Reason For Exam (CR Hip w/ Pelvis 1 View Left n) traction view, left hip fracture Report PELVIS AND LEFT HIP: CLINICAL INDICATION: Traction view. TECHNIQUE: AP pelvis plus AP and lateral views of the left hip COMPARISON: 06/05/2021 FINDINGS: There is a subtrochanteric fracture of the left hip with angulation of the fracture fragments and superolateral displacement of the distal fracture fragment. Alignment is unchanged compared to pretraction radiograph. No dislocation. The sacroiliac joints are normal. No bone lesion is identified. There is no soft tissue abnormality. IMPRESSION: Displaced subtrochanteric fracture of the left hip with unchanged alignment compared to the pretraction radiograph. Report Dictated on --- Final --- Dictated: 06/06/2021 1:48 am Dictating Physician: MD SOMMER KEVIN Signed Date and Time: 06/06/2021 1:51 am Signed by: MD SOMMER KEVIN Transcribed Date and Time: 06/06/2021 1:48 [facility] Work Phone: Radiology Study observation (narrative) [facility] Work Phone: XR HIP 1 VW W PELVIS LEFTOrd ered By: José Sommer on 06-06-2021 [facility] Work Phone: Absolute lymphocyte counton 06-05-2021 Lymphocytes Auto (Unsp spec) [#/Vol] 0.93 10*3/uL 0.83-4.51 [facility] Work Phone: Basophil percentageon 2021 Basophil percentage 0 SEEN /hpf [facility] Work Phone: Basophils/100 WBC (Bld) 0.6 % 0-1 [facility] Work Phone: Chloride [Moles/Vol] 98 mmol/L 98-107 [facility] Work [facility]: Eosinophils/100 WBC (Bld) 0.5 % 0-5 [facility] Work Phone: Glucose [Mass/Vol] 95 mg/dL 74-106 [facility] Work Phone: Neutrophils (Bld) [#/Vol] 10.0 10*3/uL 2.0-7.7 [facility] Work Phone: Neutrophils/100 WBC (Bld) 84.0 % 47-70 [facility] Work Phone: Potassium [Moles/Vol] 3.7 mmol/L 3.5-5.1 [facility] Work Phone: Sodium [Moles/Vol] 131 mmol/L 136-145 [facility] Work Phone: WBC (Bld) [#/Vol] 11.9 10*3/uL 4.4-11.0 [facility] Work Phone: Bilirubin Test strip Ql (U)o n 06-05-2021 Bilirubin Ql (U) Negative Negative [facility] Work Phone: Blood erythrocytes count (nu mber/volume)on 06-05-2021 RBC (Bld) [#/Vol] 3.78 10*6/uL 4.2-5.4 [facility] Work Phone: Blood hemoglobin measurement (mass/volume)on 06-05-2021 Hemoglobin (Bld) [Mass/Vol] 11.7 g/dL 12.0-15.0 [facility] Work Phone: Blood lymphocytes/100 leukoc yteson 06-05-2021 Lymphocytes/100 WBC (Bld) 7.8 % 19-41 [facility] Work Phone: Blood monocytes/100 leukocyt eson 06-05-2021 Monocytes/100 WBC (Bld) 6.3 % 0-10 [facility] Work Phone: Blood platelet mean volumeon 06-05-2021 Platelet mean volume (Bld) [Entitic vol] 9.5 fL 6.2-12.0 [facility] Work Phone: Determination of erythrocyte mean corpuscular volume (MCV)on 06-05-2021 MCV (RBC) [Entitic vol] 91.8 fL 81-99 [facility] Work Phone: Hematocrit Auto (Bld) [Volum e fraction]on 06-05-2021 Hematocrit (Bld) [Volume fraction] 34.7 % 37-47 [facility] Work Phone: Ketones Test strip Ql (U)on 06-05-2021 Ketones Ql (U) Negative Negative [facility] Work Phone: LABORATORYOrdered By: Myrna Avila on 06-05-2021 Appearance (U) Clear (06/05/21 12:10 PM) Invalid Interpretation Code Clear AO Auto Urine SS Bilirubin Ql (U) Negative (06/05/21 12:10 PM) Invalid Interpretation Code Negative AO Auto Urine SS Color (U) Yellow (06/05/21 12:10 PM) Invalid Interpretation Code AO Auto Urine SS Glucose Test strip (U) [Mass/Vol] Negative Invalid Interpretation Code Negativemg/ dL AO Auto Urine SS Hemoglobin Auto test strip (U) [Mass/Vol] Negative (06/05/21 12:10 PM) Invalid Interpretation Code Negative AO Auto Urine SS Ketones Ql (U) Negative Invalid Interpretation Code Negativemg/ dL AO Auto Urine SS UA Leuk Est Negative (06/05/21 12:10 PM) Invalid Interpretation Code Negative AO Auto Urine SS UA Nitrite Negative (06/05/21 12:10 PM) Invalid Interpretation Code Negative AO Auto Urine SS UA pH 7.0 (06/05/21 12:10 PM) Invalid Interpretation Code 5.0 - 8.0 AO Auto Urine SS UA Protein Negative Invalid Interpretation Code Negativemg/ dL AO Auto Urine SS UA Spec Grav 1.010 *ABN* (06/05/21 12:10 PM) Invalid Interpretation Code 1.015-1.025 AO Auto Urine SS UA Specimen Type Clean Catch (06/05/21 12:10 PM) Invalid Interpretation Code AO Auto Urine SS UA Urobilinogen 0.2 E.U./dL Invalid Interpretation Code 0.2-1.0E.U. /dL AO Auto Urine SS Laboratory - Chemistry and C hemistry - challengeon 06-05-2021 CO2 [Moles/Vol] 28.0 mmol/L 21.0-32.0 [facility] Work Phone: [phone] Urea nitrogen/Creatinine [Mass ratio] 24.7 mg/mg 10-20 [facility] Work Phone: [phone] Laboratory - Hematology and Cell countson 06-05-2021 Erythrocyte distribution width (RBC) [Entitic vol] 57.3 fL 35.1-43.9 [facility] Work Phone: [phone] Erythrocyte distribution width (RBC) [Ratio] 17.0 % 11.6-14.6 [facility] Work Phone: [phone] Immature granulocytes/100 WBC (Bld) 0.800 % 0.0-0.9 [facility] Work Phone: [phone] Comment on above: IG% - Immature Granu locytes (promyelocytes, myelocytes and metamyelocytes) > 1% indicates that a LEFT SHIFT is Present. MCH (RBC) [Entitic mass] 31.0 pg 27.0-32.0 [facility] Work Phone: [phone] Nucleated RBC/100 WBC (Bld) [Ratio] 0 % 0-5 [facility] Work Phone: [phone] MCHC Auto (RBC) [Mass/Vol]on 06-05-2021 MCHC (RBC) [Mass/Vol] 33.7 g/dL 32-36 [facility] Work Phone: [phone] Mucus LM Ql (Urine sed)on Mucus Ql (Urine sed) 0 SEEN /hpf [facility] Work Phone: [phone] Nitrite Test strip Ql (U)on 06-05-2021 Nitrite Ql (U) Negative Negative [facility] Work Phone: No Panel Informationon 06-05 Estimated Creatinine Clearance Calc 34.89 ml/min [facility] Work Phone: Estimated GFR (MDRD) Amer 87 mL/min >60 [facility] Work Phone: Comment on above: GFR Calc Estimated GFR (MDRD) Non-Af Amer 72 mL/min >60 [facility] Work Phone: Comment on above: Non- GFR Calc Culture Urine 10,000 - 50,000 cfu/ ml Mixed growth consistent with normal urogenital courtney. [facility] Work Phone: Platelets bldon 06-05-2021 Platelets (Bld) [#/Vol] 329 10*3/uL 150-450 [facility] Work Phone: Protein Test strip Ql (U)on 06-05-2021 Protein Ql (U) Negative Negative [facility] Work Phone: Serum or plasma calcium gab urement (mass/volume)on 06-05-2021 Calcium [Mass/Vol] 8.8 mg/dL 8.5-10.1 [facility] Work Phone: Serum or plasma creatinine m easurement (mass/volume)on 06-05-2021 Creatinine [Mass/Vol] 0.81 mg/dL 0.55-1.02 [facility] Work Phone: Comment on above: The validity of the calculated GFR & GFRAA in patients over 70 years has not been determined. Clinical correlation is essential. Serum or plasma urea nitroge n measurement (mass/volume)on 06-05-2021 Urea nitrogen [Mass/Vol] 20 mg/dL 7-18 [facility] Work Phone: [phone] Squamous epithelial cells de tection in urine sediment by light microscopyon 06-05-2021 Epithelial cells.squamous LM Ql (Urine sed) 0-5 SEEN /hpf [facility] Work Phone: Thin prep Papanicolaou smear with manual screeningon 06-05-2021 Thin prep Papanicolaou smear with manual screening 5 5-15 [facility] Work Phone: Urine blood detectionon 05-26 RBC Ql (U) Negative Negative [facility] Work Phone: RBC Ql (U) 0 SEEN /hpf [facility] Work Phone: Urine clarityon 06-05-2021 Clarity (U) Clear Clear [facility] Work Phone: Urine color determinationon 06-05-2021 Color (U) Yellow Yellow [facility] Work Phone: Urine glucose detectionon Glucose Ql (U) Normal mg/dl Normal [facility] Work Phone: Urine leukocyte esterase det ection by dipstickon 06-05-2021 Leukocyte esterase Test strip Ql (U) Negative Negative [facility] Work Phone: Urine pHon 06-05-2021 pH (U) 7.0 [pH] [facility] Work Phone: Urine sediment bacteria coun t by microscopy (number/high power field)on 06-05-2021 Bacteria LM.HPF (Urine sed) [#/Area] 0 /[HPF] None Seen [facility] Work Phone: Urine specific gravity measu rementon 06-05-2021 Specific gravity (U) [Rel density] 1.010 [facility] Work Phone: Urobilinogen Auto test strip Ql (U)on 06-05-2021 Urobilinogen Ql (U) Normal mg/dl Normal [facility] Work Phone: LABORATORYOrdered By: Jose Heredia on 05-15-2021 Appearance (U) Slightly Cloudy *ABN* (05/15/21 2:44 PM) Invalid Interpretation Code Clear AO Auto Urine SS Bacteria LM.HPF (Urine sed) [#/Area] 2 /[HPF] Invalid Interpretation Code AO Auto Urine SS Bilirubin Ql (U) Negative (05/15/21 2:44 PM) Invalid Interpretation Code Negative AO Auto Urine SS Calcium oxalate crystals LM.HPF (Urine sed) [#/Area] 1 /[HPF] Invalid Interpretation Code AO Auto Urine SS Color (U) Patricia Invalid Interpretation Code AO Auto Urine SS Glucose Test strip (U) [Mass/Vol] Negative Invalid Interpretation Code Negativemg/ dL AO Auto Urine SS Hemoglobin Auto test strip (U) [Mass/Vol] Trace *ABN* (05/15/21 2:44 PM) Invalid Interpretation Code Negative AO Auto Urine SS Ketones Ql (U) Negative Invalid Interpretation Code Negativemg/ dL AO Auto Urine SS UA Leuk Est Negative (05/15/21 2:44 PM) Invalid Interpretation Code Negative AO Auto Urine SS UA Mucous 1+ /HPF Invalid Interpretation Code AO Auto Urine SS UA Nitrite Positive *ABN* (05/15/21 2:44 PM) Invalid Interpretation Code Negative AO Auto Urine SS UA pH 5.5 (05/15/21 2:44 PM) Invalid Interpretation Code 5.0 - 8.0 AO Auto Urine SS UA Protein 100 mg/dL Invalid Interpretation Code Negativemg/ dL AO Auto Urine SS UA RBC 0-5 /HPF Invalid Interpretation Code None Seen/HPF AO Auto Urine SS UA Spec Grav 1.025 (05/15/21 2:44 PM) Invalid Interpretation Code 1.015-1.025 AO Auto Urine SS UA Specimen Type Clean Catch (05/15/21 2:44 PM) Invalid Interpretation Code AO Auto Urine SS UA Squam Epithelial 0-5 /HPF Invalid Interpretation Code None Seen/HPF AO Auto Urine SS UA Urobilinogen 0.2 E.U./dL Invalid Interpretation Code 0.2-1.0E.U. /dL AO Auto Urine SS WBC LM.HPF (Urine sed) [#/Area] 5-10 /HPF Invalid Interpretation Code None Seen/HPF AO Auto Urine SS Albumin BCP dye [Mass/Vol] 3.3 G/dL Invalid Interpretation Code 3.4 - 4.8 G/dL AO ADM SS Albumin/Globulin [Mass ratio] 1.2 {ratio} Invalid Interpretation Code 1.1 - 2.5 ratio AO ADM SS ALP [Catalytic activity/Vol] 118 U/L Invalid Interpretation Code 40 - 135 U/L AO ADM SS ALT With P-5'-P [Catalytic activity/Vol] 28 U/L Invalid Interpretation Code 14 - 59 U/L AO ADM SS AST With P-5'-P [Catalytic activity/Vol] 30 U/L Invalid Interpretation Code 10 - 40 U/L AO ADM SS Basophil, Absolute 0.10 103/mcL Invalid Interpretation Code 0.00 - 0.19 10^3/mcL AO Auto Heme SS Basophils/100 WBC (Bld) 1.7 % Invalid Interpretation Code 0.0 - 2.5 % AO Auto Heme SS Bilirubin [Mass/Vol] 0.9 mg/dL Invalid Interpretation Code 0.2 - 1.0 mg/dL AO ADM SS Calcium [Mass/Vol] 9.5 mg/dL Invalid Interpretation Code 8.4 - 10.2 mg/dL AO ADM SS Chloride [Moles/Vol] 101 mmol/L Invalid Interpretation Code 98 - 107 mmol/L AO ADM SS CO2 [Moles/Vol] 31 mmol/L Invalid Interpretation Code 23 - 31 mmol/L AO ADM SS Creatinine [Mass/Vol] 1.26 mg/dL Invalid Interpretation Code 0.55 - 1.02 mg/dL AO ADM SS Electrolyte Balance 8.0 mEq/L Invalid Interpretation Code 4.0 - 15.0 mEq/L AO ADM SS Eosinophil, Absolute 0.00 103/mcL Invalid Interpretation Code 0.00 - 0.40 10^3/mcL AO Auto Heme SS Eosinophils/100 WBC (Bld) 0.6 % Invalid Interpretation Code 0.0 - 7.0 % AO Auto Heme SS Erythrocyte distribution width (RBC) [Ratio] 15.8 % Invalid Interpretation Code 11.5 - 14.5 % AO Auto Heme SS Globulin 2.7 G/dL Invalid Interpretation Code AO ADM SS Glucose [Mass/Vol] 107 mg/dL Invalid Interpretation Code 83 - 110 mg/dL AO ADM SS Hematocrit (Bld) [Volume fraction] 43.2 % Invalid Interpretation Code 37.0 - 47.0 % AO Auto Heme SS Hemoglobin (Bld) [Mass/Vol] 14.4 G/dL Invalid Interpretation Code 12.0 - 16.0 G/dL AO Auto Heme SS Lipase [Catalytic activity/Vol] 166 U/L Invalid Interpretation Code 73 - 393 U/L AO ADM SS Lymphocyte, Absolute 1.20 103/mcL Invalid Interpretation Code 0.77 - 3.85 10^3/mcL AO Auto Heme SS Lymphocytes/100 WBC (Bld) 15.6 % Invalid Interpretation Code 10.0 - 50.0 % AO Auto Heme SS MCH (RBC) [Entitic mass] 29.0 pg Invalid Interpretation Code 27.0 - 31.2 pg AO Auto Heme SS MCHC (RBC) [Mass/Vol] 33.3 G/dL Invalid Interpretation Code 33.0 - 37.0 G/dL AO Auto Heme SS MCV (RBC) [Entitic vol] 87.2 fL Invalid Interpretation Code 80.0 - 94.0 fL AO Auto Heme SS Monocyte, Absolute 0.70 103/mcL Invalid Interpretation Code 0.15 - 1.00 10^3/mcL AO Auto Heme SS Monocytes/100 WBC (Bld) 8.5 % Invalid Interpretation Code 1.7 - 13.0 % AO Auto Heme SS Neutrophil, Absolute 5.70 103/mcL Invalid Interpretation Code 2.85 - 6.16 10^3/mcL AO Auto Heme SS Neutrophils/100 WBC (Bld) 73.6 % Invalid Interpretation Code 37.0 - 80.0 % AO Auto Heme SS Platelet mean volume (Bld) [Entitic vol] 8.9 fL Invalid Interpretation Code 7.4 - 10.4 fL AO Auto Heme SS Platelets (Bld) [#/Vol] 221 103/mcL Invalid Interpretation Code 130 - 400 10^3/mcL AO Auto Heme SS Potassium [Moles/Vol] 4.1 mmol/L Invalid Interpretation Code 3.5 - 5.1 mmol/L AO ADM SS Protein [Mass/Vol] 6.0 G/dL Invalid Interpretation Code 6.4 - 8.2 G/dL AO ADM SS RBC (Bld) [#/Vol] 4.95 106/mcL Invalid Interpretation Code 4.20 - 5.40 10^6/mcL AO Auto Heme SS Sodium [Moles/Vol] 140 mmol/L Invalid Interpretation Code 136 - 145 mmol/L AO ADM SS Urea nitrogen [Mass/Vol] 45 mg/dL Invalid Interpretation Code 7 - 18 mg/dL AO ADM SS Urea nitrogen/Creatinine [Mass ratio] 36 ratio Invalid Interpretation Code 7 - 27 ratio AO ADM SS WBC (Bld) [#/Vol] 7.80 103/mcL Invalid Interpretation Code 4.60 - 10.80 10^3/mcL AO Auto Heme SS LABORATORYOrdered By: SYSTEM SYSTEM on 05-15-2021 GFR 50 ml/min/1.73sqm Invalid Interpretation Code AO Chemistry S GFR Non- 41 ml/min/1.73sqm Invalid Interpretation Code AO Chemistry S LABORATORYOrdered By: Myrna Avila on 04-30-2021 Appearance (U) Slightly Cloudy *ABN* (04/30/21 4:11 PM) Invalid Interpretation Code Clear AO Auto Urine SS Bilirubin Ql (U) Negative (04/30/21 4:11 PM) Invalid Interpretation Code Negative AO Auto Urine SS Color (U) Yellow (04/30/21 4:11 PM) Invalid Interpretation Code AO Auto Urine SS Glucose Test strip (U) [Mass/Vol] Negative Invalid Interpretation Code Negativemg/ dL AO Auto Urine SS Hemoglobin Auto test strip (U) [Mass/Vol] Negative (04/30/21 4:11 PM) Invalid Interpretation Code Negative AO Auto Urine SS Ketones Ql (U) Trace mg/dL Invalid Interpretation Code Negativemg/ dL AO Auto Urine SS UA Coarse Granular Casts 0-5 /LPF Invalid Interpretation Code AO Auto Urine SS UA Hyal Cast 5-10 /LPF Invalid Interpretation Code AO Auto Urine SS UA Leuk Est Negative (04/30/21 4:11 PM) Invalid Interpretation Code Negative AO Auto Urine SS UA Mucous 2+ /HPF Invalid Interpretation Code AO Auto Urine SS UA Nitrite Negative (04/30/21 4:11 PM) Invalid Interpretation Code Negative AO Auto Urine SS UA pH 6.0 (04/30/21 4:11 PM) Invalid Interpretation Code 5.0 - 8.0 AO Auto Urine SS UA Protein 30 mg/dL Invalid Interpretation Code Negativemg/ dL AO Auto Urine SS UA RBC 0-5 /HPF Invalid Interpretation Code None Seen/HPF AO Auto Urine SS UA Spec Grav 1.020 (04/30/21 4:11 PM) Invalid Interpretation Code 1.015-1.025 AO Auto Urine SS UA Specimen Type Void (04/30/21 4:11 PM) Invalid Interpretation Code AO Auto Urine SS UA Squam Epithelial 0-5 /HPF Invalid Interpretation Code None Seen/HPF AO Auto Urine SS UA Urobilinogen 0.2 E.U./dL Invalid Interpretation Code 0.2-1.0E.U. /dL AO Auto Urine SS WBC LM.HPF (Urine sed) [#/Area] 0-5 /HPF Invalid Interpretation Code None Seen/HPF AO Auto Urine SS ADMITTED TO INTENSIVE CARE UNIT FOR CONDITION OF INTEREST:FIND:PT:^PAT IENT:ORD: No (04/30/21 1:52 PM) Invalid Interpretation Code AO Auto Urine SS EMPLOYED IN A HEALTHCARE SETTING:FIND:PT:^ALYSON ENT:ORD: No (04/30/21 1:52 PM) Invalid Interpretation Code AO Auto Urine SS Erythrocyte distribution width (RBC) [Ratio] 14.4 % Invalid Interpretation Code 11.5 - 14.5 % AO Auto Heme SS FIRST TEST FOR CONDITION OF INTEREST:FIND:PT:^PAT IENT:ORD: Unknown (04/30/21 1:52 PM) Invalid Interpretation Code AO Auto Urine SS HAS SYMPTOMS RELATED TO CONDITION OF INTEREST:FIND:PT:^PAT IENT:ORD: Yes (04/30/21 1:52 PM) Invalid Interpretation Code AO Auto Urine SS Hematocrit (Bld) [Volume fraction] 43.6 % Invalid Interpretation Code 37.0 - 47.0 % AO Auto Heme SS Hemoglobin (Bld) [Mass/Vol] 14.2 G/dL Invalid Interpretation Code 12.0 - 16.0 G/dL AO Auto Heme SS Illness or injury onset date and time [id number] Invalid Interpretation Code AO Auto Urine SS MCH (RBC) [Entitic mass] 28.9 pg Invalid Interpretation Code 27.0 - 31.2 pg AO Auto Heme SS MCHC (RBC) [Mass/Vol] 32.6 G/dL Invalid Interpretation Code 33.0 - 37.0 G/dL AO Auto Heme SS MCV (RBC) [Entitic vol] 88.6 fL Invalid Interpretation Code 80.0 - 94.0 fL AO Auto Heme SS Patient was hospitalized because of this condition No (04/30/21 1:52 PM) Invalid Interpretation Code AO Auto Urine SS Platelet mean volume (Bld) [Entitic vol] 7.6 fL Invalid Interpretation Code 7.4 - 10.4 fL AO Auto Heme SS Platelets (Bld) [#/Vol] 322 103/mcL Invalid Interpretation Code 130 - 400 10^3/mcL AO Auto Heme SS status Not (04/30/21 1:52 PM) Invalid Interpretation Code AO Auto Urine SS RBC (Bld) [#/Vol] 4.93 106/mcL Invalid Interpretation Code 4.20 - 5.40 10^6/mcL AO Auto Heme SS RESIDES IN A CONGREGATE CARE SETTING:FIND:PT:^ALYSON ENT:ORD: No (04/30/21 1:52 PM) Invalid Interpretation Code AO Auto Urine SS SARS-CoV-2 (COVID-19) RNA DIANNA+probe Ql (Resp) Negative (04/30/21 1:52 PM) Invalid Interpretation Code Negative AO Auto Urine SS SARS-CoV-2 (COVID-19) RNA DIANNA+probe Ql (Unsp spec) Negative results do not preclude SARS-CoV-2 infection and should not be used as the sole basis for patient management decisions. Negative results must be combined with clinical observations, patient history, and epidemiological information.There is a risk of false negative values resulting from improperly collected, transported, or handled specimens.There is a risk of false negative values due to the presence of sequence variants in the pathogen targets of the assay, procedural errors, amplification inhibitors in specimens, or inadequate numbers of organisms for amplification.YUMIKO SARS-CoV-2 Assay is a Real-Time reverse-transcriptase polymerase chain reaction (RT-PCR) based qualitative in vitro diagnostic test intended for the qualitative detection of nucleic acid from the SARS-CoV-2 in nasopharyngeal swab specimens collected from individuals suspected of COVID-19 by their healthcare provider. Testing is limited to laboratories certified under the Clinical Laboratory Improvement Amendments of 1988 (CLIA), 42 U.S.C. 263a, to perform moderate and high complexity tests. Invalid Interpretation Code AO Auto Urine SS WBC (Bld) [#/Vol] 5.60 103/mcL Invalid Interpretation Code 4.60 - 10.80 10^3/mcL AO Auto Heme SS Base excess Calc (Bld) [Moles/Vol] -1.0000 mmol/L Invalid Interpretation Code -2.4 - 2.3 mmol/L AO Blood Gas SS CO2 (Bld) [Partial pressure] 37.1 mm[Hg] Invalid Interpretation Code 35.0 - 45.0 mm Hg AO Blood Gas SS CO2 [Moles/Vol] 25 mmol/L Invalid Interpretation Code 19 - 24 mmol/L AO Blood Gas SS HCO3 (Bld) [Moles/Vol] 24.0 mmol/L Invalid Interpretation Code 22.0 - 26.0 mmol/L AO Blood Gas SS Oxygen (Bld) [Partial pressure] 67.0 mm[Hg] Invalid Interpretation Code 80.0 - 100.0 mm Hg AO Blood Gas SS pH (Bld) 7.42 [pH] Invalid Interpretation Code 7.35 - 7.45 AO Blood Gas SS LABORATORYOrdered By: Citlali Lewis on 04-30-2021 Basophil, Absolute 0.00 103/mcL Invalid Interpretation Code 0.00 - 0.19 10^3/mcL AO Auto Heme SS Basophils/100 WBC (Bld) 0.8 % Invalid Interpretation Code 0.0 - 2.5 % AO Auto Heme SS Eosinophil, Absolute 0.00 103/mcL Invalid Interpretation Code 0.00 - 0.40 10^3/mcL AO Auto Heme SS Eosinophils/100 WBC (Bld) 0.5 % Invalid Interpretation Code 0.0 - 7.0 % AO Auto Heme SS Lymphocyte, Absolute 1.00 103/mcL Invalid Interpretation Code 0.77 - 3.85 10^3/mcL AO Auto Heme SS Lymphocytes/100 WBC (Bld) 17.1 % Invalid Interpretation Code 10.0 - 50.0 % AO Auto Heme SS Monocyte, Absolute 0.80 103/mcL Invalid Interpretation Code 0.15 - 1.00 10^3/mcL AO Auto Heme SS Monocytes/100 WBC (Bld) 13.9 % Invalid Interpretation Code 1.7 - 13.0 % AO Auto Heme SS Neutrophil, Absolute 3.80 103/mcL Invalid Interpretation Code 2.85 - 6.16 10^3/mcL AO Auto Heme SS Neutrophils/100 WBC (Bld) 67.7 % Invalid Interpretation Code 37.0 - 80.0 % AO Auto Heme SS LABORATORYOrdered By: Jose Heredia on 04-30-2021 Calcium [Mass/Vol] 8.8 mg/dL Invalid Interpretation Code 8.4 - 10.2 mg/dL AO ADM SS Chloride [Moles/Vol] 101 mmol/L Invalid Interpretation Code 98 - 107 mmol/L AO ADM SS CO2 [Moles/Vol] 26 mmol/L Invalid Interpretation Code 23 - 31 mmol/L AO ADM SS Creatinine [Mass/Vol] 0.99 mg/dL Invalid Interpretation Code 0.55 - 1.02 mg/dL AO ADM SS Electrolyte Balance 11.0 mEq/L Invalid Interpretation Code AO ADM SS Glucose [Mass/Vol] 96 mg/dL Invalid Interpretation Code 83 - 110 mg/dL AO ADM SS Potassium [Moles/Vol] 4.5 mmol/L Invalid Interpretation Code 3.5 - 5.1 mmol/L AO ADM SS Sodium [Moles/Vol] 138 mmol/L Invalid Interpretation Code 136 - 145 mmol/L AO ADM SS Troponin I.cardiac DL <= 0.01 ng/mL [Mass/Vol] 12.7 ng/L Invalid Interpretation Code 0.0 - 51.4 ng/L AO ADM SS Urea nitrogen [Mass/Vol] 29 mg/dL Invalid Interpretation Code 7 - 18 mg/dL AO ADM SS Urea nitrogen/Creatinine [Mass ratio] 29 ratio Invalid Interpretation Code 7 - 27 ratio AO ADM SS LABORATORYOrdered By: SYSTEM SYSTEM on 04-30-2021 GFR 65 ml/min/1.73sqm Invalid Interpretation Code AO Chemistry S GFR Non- 54 ml/min/1.73sqm Invalid Interpretation Code AO Chemistry S Vital Signs Date Time Vital Sign Value Performing Clinician Facility 06-13-2022 18:01-0500 Inhaled oxygen flow rate 3 L/min Dr. aJmie Boateng Work Phone: [facility] 06-13-2022 18:01-0500 SaO2% (BldA) [Mass fraction] 90 % Dr. Jamie Boateng Work Phone: [facility] 06-13-2022 15:19-0500 Heart rate 64 /min Dr. Jamie Boateng Work Phone: [facility] 06-13-2022 15:19-0500 Respiratory rate 16 /min Dr. Jamie Boateng Work Phone: [facility] 06-13-2022 15:15-0500 Body temperature 98.5 [degF] Dr. Jamie Boateng Work Phone: [facility] 06-13-2022 15:15-0500 Diastolic blood pressure 62 mm[Hg] Dr. Jamie Boateng Work Phone: [facility] 06-13-2022 15:15-0500 Systolic blood pressure 110 mm[Hg] Dr. Jamie Boateng Work Phone: [facility] 06-12-2022 19:55-0500 Body mass index (BMI) [Ratio] 15.5 kg/m2 Dr. Jamie Boateng Work Phone: [facility] 06-11-2022 12:50-0500 Body height 157.[address] Jamie Boateng Work Phone: [facility] 06-11-2022 12:50-0500 Body weight 38.[address] Jamie Boateng Work Phone: [facility] 09-18-2021 09:56-0400 SaO2% (BldA) [Mass fraction] 95 % Dr. Jamie Boateng Work Phone: [facility] Work Phone: 09-18-2021 09:46-0400 Body temperature 97.1 [degF] Dr. Jamie Boateng Work Phone: [facility] Work Phone: 09-18-2021 09:46-0400 Diastolic blood pressure 90 mm[Hg] Dr. Jamie Boateng Work Phone: [facility] Work Phone: 09-18-2021 09:46-0400 Heart rate 77 /min Dr. Jamie Boateng Work Phone: [facility] Work Phone: 09-18-2021 09:46-0400 Respiratory rate 18 /min Dr. Jamie Boateng Work Phone: [facility] Work Phone: 09-18-2021 09:46-0400 Systolic blood pressure 145 mm[Hg] Dr. Jamie Boateng Work Phone: [facility] Work Phone: 09-18-2021 06:00-0400 Body weight [address] Jamie Boateng Work Phone: [facility] Work Phone: 09-17-2021 15:38-0400 Body height 157.[address] Jamie Boateng Work Phone: [facility] Work Phone: 09-07-2021 17:27-0400 Body mass index (BMI) [Ratio] 16.7 kg/m2 Dr. Jamie Boateng Work Phone: [facility] Work Phone: 09-07-2021 16:15-0400 SaO2% (BldA) [Mass fraction] 98 % [facility] Work Phone: 09-07-2021 16:14-0400 Heart rate 45 /min [facility] Work Phone: 09-07-2021 15:50-0400 Body temperature 97.8 [degF] [facility] Work Phone: 09-07-2021 15:50-0400 Diastolic blood pressure 85 mm[Hg] [facility] Work Phone: 09-07-2021 15:50-0400 Respiratory rate 14 /min [facility] Work Phone: 09-07-2021 15:50-0400 Systolic blood pressure 168 mm[Hg] [facility] Work Phone: 09-07-2021 13:19-0400 Body height 157.48 cm [facility] Work Phone: 09-07-2021 13:19-0400 Body mass index (BMI) [Ratio] 15.1 kg/m2 [facility] Work Phone: 09-07-2021 13:19-0400 Body weight 37.6 kg [facility] Work Phone: 07-02-2021 06:56-0500 Body height 157.5 cm Deanne Elizabeth [employer] Work Phone: [facility] 07-02-2021 06:56-0500 Body mass index (BMI) [Ratio] 15.55 kg/m2 Deannekit Elizabeth DO Work Phone: [facility] 07-02-2021 06:56-0500 Body weight 38.56 kg Deanne Elizabeth DO Work Phone: [facility] 07-02-2021 04:50-0500 Body temperature 97.39 [degF] Deanne Elizabeth [employer] Work Phone: [facility] 07-02-2021 04:50-0500 Diastolic blood pressure 74 mm[Hg] Deannekit Elizabeth DO Work Phone: [facility] 07-02-2021 04:50-0500 Heart rate 64 /min Deannekit Elizabeth DO Work Phone: [facility] 07-02-2021 04:50-0500 Respiratory rate 16 /min Deannekit Liunett DO Work Phone: [facility] 07-02-2021 04:50-0500 SaO2% (BldA) [Mass fraction] 98 % Daennekit Elizabeth DO Work Phone: [facility] 07-02-2021 04:50-0500 Systolic blood pressure 132 mm[Hg] Deanne Elizabeth DO Work Phone: [facility] 06-17-2021 16:29-0500 Body temperature 99.39 [degF] Isaak Palma MD Work Phone: [facility] 06-17-2021 16:29-0500 Diastolic blood pressure 73 mm[Hg] Isaak Palma MD Work Phone: [facility] 06-17-2021 16:29-0500 Heart rate 80 /min Isaak Palma MD Work Phone: [facility] 06-17-2021 16:29-0500 Respiratory rate 18 /min Isaak Palma MD Work Phone: [facility] 06-17-2021 16:29-0500 SaO2% (BldA) [Mass fraction] 95 % Isaak Palma MD Work Phone: [facility] 06-17-2021 16:29-0500 Systolic blood pressure 128 mm[Hg] Isaak Palma MD Work Phone: [facility] 06-13-2021 16:02-0500 Body height 157.5 cm Isaak Palma MD Work Phone: [facility] 06-08-2021 12:57-0500 Body mass index (BMI) [Ratio] 16.1 kg/m2 Isaak Palma MD Work Phone: [facility] 06-08-2021 12:57-0500 Body weight 39.92 kg Isaak Palma MD Work Phone: [facility] 06-05-2021 20:14-0500 Diastolic blood pressure 78 mm[Hg] [facility] Work Phone: 06-05-2021 20:14-0500 Systolic blood pressure 155 mm[Hg] [facility] Work Phone: 06-05-2021 19:00-0500 Heart rate 78 /min [facility] Work Phone: 06-05-2021 19:00-0500 Respiratory rate 16 /min [facility] Work Phone: 06-05-2021 19:00-0500 SaO2% (BldA) [Mass fraction] 98 % [facility] Work Phone: 06-05-2021 14:19-0500 Body height 160.02 cm [facility] Work Phone: 06-05-2021 14:19-0500 Body mass index (BMI) [Ratio] 15.5 kg/m2 [facility] Work Phone: 06-05-2021 14:19-0500 Body temperature 97.8 [degF] [facility] Work Phone: 06-05-2021 14:19-0500 Body weight 39.9 kg [facility] Work Phone: 05-15-2021 16:08-0500 Diastolic blood pressure 74 mm[Hg] KEMI LENZ MD [facility] 05-15-2021 16:08-0500 Heart rate 58 /min KEMI ELNZ MD [facility] 05-15-2021 16:08-0500 Reason For Taking VItal Signs KEMI LENZ MD [facility] 05-15-2021 16:08-0500 Respiratory rate 16 /min KEMI LENZ MD [facility] 05-15-2021 16:08-0500 Systolic blood pressure 139 mm[Hg] KEMI LENZ MD [facility] 05-15-2021 15:46-0500 Diastolic blood pressure 79 mm[Hg] KEMI LENZ MD [facility] 05-15-2021 15:46-0500 Heart rate 61 /min KEMI LENZ MD [facility] 05-15-2021 15:46-0500 Reason For Taking VItal Signs KEMI LENZ MD [facility] 05-15-2021 15:46-0500 Respiratory rate 16 /min KEMI LENZ MD [facility] 05-15-2021 15:46-0500 Systolic blood pressure 143 mm[Hg] KEMI LENZ MD [facility] 05-15-2021 13:09-0500 Diastolic blood pressure 70 mm[Hg] KEMI LENZ MD [facility] 05-15-2021 13:09-0500 Heart rate 52 /min KEMI LENZ MD [facility] 05-15-2021 13:09-0500 Reason For Taking VItal Signs KEMI LENZ MD [facility] 05-15-2021 13:09-0500 Respiratory rate 14 /min KEMI LENZ MD [facility] 05-15-2021 13:09-0500 Systolic blood pressure 152 mm[Hg] KEMI LENZ MD [facility] 05-15-2021 11:22-0500 Body temperature 97.88 [degF] KEMI LENZ MD [facility] 05-15-2021 11:22-0500 Heart rate 56 /min KEMI LENZ MD [facility] 04-30-2021 13:42-0500 SaO2% (BldA) [Mass fraction] 94 % DR LOTUS MAGALLON DO AO Blood Gas SS 04-30-2021 13:18-0500 Body temperature 98.42 [degF] DR LOTUS MAGALLON DO [facility] 04-30-2021 13:18-0500 Diastolic blood pressure 91 mm[Hg] DR LOTUS MAGALLON DO [facility] 04-30-2021 13:18-0500 Heart rate 93 /min DR LOTUS MAGALLON DO [facility] 04-30-2021 13:18-0500 Respiratory rate 13 /min DR LOTUS MAGALLON DO [facility] 04-30-2021 13:18-0500 Systolic blood pressure 128 mm[Hg] DR LOTUS MAGALLON DO [facility] Encounters Encounter Date Encounter Type Care Provider Facility Start: 12-11-2024 End: 12-11-2024 ambulatory JAMIE BOATENG MD Facility:[facility] Start: 12-11-2024 End: 12-11-2024 Patient encounter procedure JAMIE BOATENG MD [facility] Start: 03-02-2024 End: 03-06-2024 ambulatory JAMIE BOATENG MD Facility:[facility] [place] Start: 03-02-2024 End: 03-06-2024 Outreach Lab JAMIE BOATENG MD [facility] Start: 02-01-2024 End: 02-05-2024 ambulatory JAMIE BOATENG MD Facility:[facility] [place] Start: 02-01-2024 End: 02-05-2024 Outreach Lab JAMIE BOATENG MD [facility] Start: 12-16-2023 ambulatory Jamie Boateng Facility: [facility] Start: 12-06-2023 End: 12-06-2023 Emergency department patient visit Shailesh Ramírez Facility:[facility] Start: 08-10-2023 End: 08-15-2023 ambulatory JAMIE BOATENG MD Facility:[facility] Start: 08-10-2023 End: 08-14-2023 Outreach Lab JAMIE BOATENG MD [facility] Start: 03-15-2023 End: 03-15-2023 ambulatory [facility] Work Phone: Start: 03-15-2023 End: 03-15-2023 Patient encounter procedure [facility] [place], [facility] Work Phone: Start: 03-15-2023 End: 03-15-2023 ambulatory Jamie Boateng Facility:[facility] Start: 06-12-2022 Non-patient / Non-visit Dr. Perdomo Work Phone: [facility] Start: 06-11-2022 Non-patient / Non-visit Dr. Perdomo Work Phone: [facility] Start: 06-10-2022 Non-patient / Non-visit Dr. Perdomo Work Phone: [facility] Start: 06-10-2022 End: 06-13-2022 Evaluation and management of inpatient Dr. Jamie Boateng Work Phone: [facility]Progressive Care Unit Start: 12-04-2021 End: 12-04-2021 Patient encounter procedure JAMIE BOATENG MD [facility] Start: 09-18-2021 Non-patient / Non-visit Dr. Perdomo Work Phone: [facility] Start: 09-17-2021 Non-patient / Non-visit Dr. Perdomo Work Phone: [facility] Start: 09-16-2021 Non-patient / Non-visit Dr. Perdomo Work Phone: [facility] Start: 09-15-2021 Non-patient / Non-visit Dr. Perdomo Work Phone: [facility] Start: 09-14-2021 Non-patient / Non-visit Dr. Perdomo Work Phone: [facility] Start: 09-13-2021 Non-patient / Non-visit Dr. Perdomo Work Phone: [facility] Start: 09-12-2021 Non-patient / Non-visit Dr. Perdomo Work Phone: [facility] Start: 09-11-2021 Non-patient / Non-visit Dr. Perdomo Work Phone: [facility] Start: 09-10-2021 Non-patient / Non-visit Dr. Perdomo Work Phone: [facility] Start: 09-10-2021 Non-patient / Non-visit Dr. Perdomo Work Phone: [facility] Start: 09-09-2021 Non-patient / Non-visit Dr. Perdomo Work Phone: [facility] Start: 09-09-2021 Non-patient / Non-visit Dr. Perdomo Work Phone: [facility] Start: 09-08-2021 Non-patient / Non-visit Dr. Perdomo Work Phone: [facility] Start: 09-08-2021 Non-patient / Non-visit Dr. Perdomo Work Phone: [facility] Start: 09-08-2021 Non-patient / Non-visit Dr. Perdomo Work Phone: [facility] Start: 09-07-2021 End: 09-18-2021 Evaluation and management of inpatient [facility]Intensive Care Unit Start: 08-12-2021 End: 08-12-2021 Patient encounter procedure [facility]-Laboratory, Specimen Start: 06-26-2021 End: 07-02-2021 Evaluation and management of inpatient Deanne Elizabeth DO Work Phone: [facility] Comment on above: Dislocation of left hip, initial encounter (HCC) (Primary Dx); Ulcer of sacral region, unstageable (HCC) Start: 06-26-2021 End: 06-26-2021 Subsequent hospital visit by physician WINSTON ZEESHAN MONROE Comment on above: FALL/RM4/MASS FD Start: 06-05-2021 End: 06-17-2021 Evaluation and management of inpatient Isaak Palma MD Work Phone: [facility] Comment on above: Closed fracture of l eft hip requiring operative repair, initial encounter (HCC) (Primary Dx) Start: 06-05-2021 End: 06-05-2021 Emergency department patient visit [facility]Emergency [facility] Start: 06-05-2021 End: 06-09-[address] OLGA MCQUEEN DO [facility] Start: 05-15-2021 End: 05-15-2021 Emergency department patient visit KEMI LENZ MD [facility] Start: 04-30-2021 End: 04-30-2021 Emergency department patient visit DR LOTUS MAGALLON DO [facility] Procedures Date Procedure Procedure Detail Performing Clinician Start: 03-15-2023 CT of abdomen Start: 06-12-2022 Plain chest X-ray Dr. Yaa Boateng Work Phone: Start: 06-10-2022 MRI of brain without contrast Dr. Jamie Boateng Work Phone: Start: 06-10-2022 CT angiography of ch est with contrast Dr. Jamie Boateng Work Phone: Start: 06-10-2022 CT of head without contrast Dr. Jamie Boateng Work Phone: Start: 06-10-2022 Plain chest X-ray Dr. Yaa Boateng Work Phone: Start: 09-18-2021 End: 09-18-[address] Jamie Boateng Work Phone: Start: 09-09-2021 CT angiography of he ad and neck Dr. Jamie Boateng Work Phone: Start: 09-08-2021 CT of head without contrast Dr. Jamie Boateng Work Phone: Start: 09-07-2021 CT of head without contrast Start: 09-07-2021 Plain x-ray of pelvi s and lower extremity Start: 08-12-2021 Urine culture Start: 07-02-2021 Basic metabolic pane l calcium total Ramon Pickens MD Work Phone: Start: 07-01-2021 POCT COVID-19, ANTIGEN Beth Bennett MD Work Phone: Start: 07-01-2021 Basic metabolic pane l calcium total Ramon Pickens MD Work Phone: Start: 06-29-2021 End: 06-30-2021 Basic metabolic panel calcium klever Pickens MD Work Phone: Start: 06-28-2021 Basic metabolic pane l calcium total Ramon Pickens MD Work Phone: Start: 06-27-2021 Blood count complete automated Goldy Hernandez MD Work Phone: Start: 06-27-2021 PROTIME/INR & PTT Katie Hernandez MD Work Phone: Start: 06-27-2021 Basic metabolic pane l calcium total Ramon Pickens MD Work Phone: Start: 06-26-2021 OPERATIVE REPORT Physic petty Generic Start: 06-26-2021 Antibody screen Deanne Glenn MENDES Work Phone: Start: 06-26-2021 Chest x-ray 1 view frontal Lincoln Lewis MD Work Phone: Start: 06-26-2021 Urnls dip stick/tabl et rgnt auto w/o microscopy Lissy Gan MD Work Phone: Start: 06-26-2021 Ecg routine ecg w/le ast 12 lds w/i&r Sumit Monroe MD Work Phone: Start: 06-26-2021 Blood typing serologic abo Poly High MD Work Phone: Start: 06-26-2021 Prothrombin time Michasiya High MD Work Phone: Start: 06-26-2021 End: 06-26-2021 Radex hip unilateral with pelvis 2-3 views Poly High MD Work Phone: Start: 06-26-2021 ORTHOPEDIC INJURY TREATMENT Sumit Mornoe MD Work Phone: Start: 06-26-2021 PROCEDURAL SEDATION Issa law Monroe MD Work Phone: Start: 06-26-2021 Radex hip unilateral with pelvis 2-3 views Deanne Glenn MENDES Work Phone: Start: 06-17-2021 POCT COVID-19, ANTIGEN Isaak Palma MD Work Phone: Start: 06-17-2021 Basic metabolic pane l calcium total Josi Bhatti MD Work Phone: Start: 06-17-2021 Manual Differential panel - Blood Josi Bhatti MD Work Phone: Start: 06-16-2021 Antibody screen Isaak Palma MD Work Phone: Start: 06-16-2021 Blood count hemoglobin Isaak Palma MD Work Phone: Start: 06-16-2021 Blood typing serologic abo Isaak Palma MD Work Phone: Start: 06-16-2021 Basic metabolic pane l calcium total Josi Bhatti MD Work Phone: Start: 06-16-2021 Manual Differential panel - Blood Josi Bhatti MD Work Phone: Start: 06-15-2021 Radex hip unilateral with pelvis 2-3 views Brent Vizcarra MD Work Phone: Start: 06-15-2021 Radex hip unilateral with pelvis 2-3 views Brent Vizcarra MD Work Phone: Start: 06-15-2021 Basic metabolic pane l calcium total Josi Bhatti MD Work Phone: Start: 06-15-2021 Manual Differential panel - Blood Josi Bhatti MD Work Phone: Start: 06-14-2021 Dup-scan xtr veins c omplete bilateral study Heri Redd DO Start: 06-14-2021 Basic metabolic pane l calcium total Josi Bhatti MD Work Phone: Start: 06-13-2021 Creatinine other source James Flood MD Work Phone: Start: 06-13-2021 Basic metabolic pane l calcium total Yakaleb R Tramaine DO Start: 06-13-2021 Basic metabolic pane l calcium total Josi Bhatti MD Work Phone: Start: 06-12-2021 Basic metabolic pane l calcium total Josi Bhatti MD Work Phone: Start: 06-11-2021 Basic metabolic pane l calcium total Josi Bhatti MD Work Phone: Start: 06-10-2021 Basic metabolic pane l calcium total Josi Bhatti MD Work Phone: Start: 06-09-2021 OPERATIVE REPORT 3m Sca nning Start: 06-09-2021 Basic metabolic pane l calcium total Josi Bhatti MD Work Phone: Start: 06-08-2021 Radiologic examinati on femur minimum 2 views Kortnie M Broschinsky MD Work Phone: Start: 06-08-2021 End: 06-08-2021 Sodium serum plasma or whole blood Josi Bhatti MD Work Phone: Start: 06-08-2021 Sodium serum plasma or whole blood Josi Bhatti MD Work Phone: Start: 06-07-2021 Sodium serum plasma or whole blood Josi Bhatti MD Work Phone: Start: 06-07-2021 End: 06-07-2021 Sodium serum plasma or whole blood Josi Bhatti MD Work Phone: Start: 06-07-2021 BASIC METABOLIC PANE L W/ REFLEX TO MG FOR LOW K Saminad Suki Wilson MD Work Phone: Start: 06-07-2021 Blood count complete auto&auto difrntl wbc Saminad Suki Wilson MD Work Phone: Start: 06-06-2021 End: 06-06-2021 Assay of osmolality blood Mirtha cedeño MD Work Phone: Start: 06-06-2021 BASIC METABOLIC PANE L W/ REFLEX TO MG FOR LOW K Saminad Suki Wilson MD Work Phone: Start: 06-06-2021 Ct lower extremity w /o contrast material Nica Kirby MD Work Phone: Start: 06-06-2021 Antibody screen Isaak Palma MD Work Phone: Start: 06-06-2021 Blood typing serologic abo James Webb MD Work Phone: Start: 06-06-2021 C ANTIGEN TYPING James Webb MD Work Phone: Start: 06-06-2021 Blood count complete automated Isaak Palma MD Work Phone: Start: 06-06-2021 Radex hip unilateral with pelvis 1 view Nica Kirby MD Work Phone: Start: 06-06-2021 Ecg routine ecg w/le ast 12 lds w/i&r Isaak Palma MD Work Phone: Start: 06-05-2021 Pelvis X-ray Start: 06-05-2021 Plain X-ray of femur Start: 05-21-[address] EVELIO MAGALLON DO Comment on above: Ef 60-65%, borderlin e concentric left ventricle hypertrophy, Stage 1 diastolic dysfunction, mild mitral regurgitation, aortic sclerosis, mild tricuspid regurgitation, mild pulmonary hypertension , Dr. Cook [facility] Start: 05-21-[address] Rosemary MAGALLON DO SARS-CoV-2 & FLU Ant igen (Rapid) Dr. Jamie Boateng Work Phone: Plan of Treatment Date Care Activity Detail Author Start: 07-02-2022 Creatinine measurement Creatinine mo nitoring [facility] Start: 07-02-2022 Pot[facility] Start: 06-17-2022 Creatinine measurement Creatinine mo nitoring [facility] Start: 06-17-2022 Potassium monitoring Potassium monit [facility] Start: 06-13-2022 Patient discharge [facility] Start: 06-12-2022 Physiotherapy of chest [facility] Start: 06-10-2022 Oxygen therapy [facility] Start: 06-10-2022 Bacteria identified in Sputum by Culture [facility] Start: 06-10-2022 Following clinical pathway protocol [facility] Start: 06-10-2022 Assessment of risk o f venous thromboembolism [facility] Start: 06-10-2022 Inhalation therapy procedure [facility] Start: 06-10-2022 Insertion of cathete r into peripheral vein [facility] Start: 06-10-2022 Patient referral to dietitian [facility] Start: 06-10-2022 Providing care accor ding to standard [facility] Start: 06-10-2022 Provision of activit y privileges [facility] Start: 06-10-2022 Referral to service [facility] Start: 06-10-2022 [facility] Start: 06-10-2022 Admission procedure [facility] Start: 07-07-2021 End: 07-07-2021 Patient encounter procedure 07/07/2021 Office Visit Orthopedic Surgery Fernando Catherine MD [address] [facility] [address] [place] [address] [facility] [place] Start: 07-07-2021 End: 07-07-2021 Nursing evaluation of patient and report 07/07/2021 Nurse Only Orthopedic Surgery [facility] [place] Start: 06-08-2021 Annual Wellness Visi t (AWV) Annual Wellness Visit (AWV) [facility] Start: 12-24-2020 Influenza vaccination Flu vaccine (# 1) [facility] Start: 01-30-2014 Shingles Vaccine (2 of 3) Dixon gles Vaccine (2 of 3) [facility] Start: 1996 Screening for osteoporosis DEXA (modify frequency per FRAX score) [facility] Start: 1960 DTaP/Tdap/Td vaccine (1 - Tdap) DTaP/Tdap/Td vaccine (1 - Tdap) [facility] Start: 1953 Depression Screen Depression Screen [facility] Start: 1946 COVID-19 Vaccine (1) COVID-19 Vaccin e (1) [facility] Basic metabolic 2000 panel - Serum or Plasma Basic Metabolic Panel Lab Routine Daily until discontinued starting 06/09/2021, 9 completed [facility] Work Phone: Comment on above: Daily until disconti nued starting 06/09/2021, 9 completed Basic metabolic 2000 panel - Serum or Plasma Basic Metabolic Panel Lab Routine Daily until discontinued starting 06/27/2021, 6 completed [facility] Work Phone: Comment on above: Daily until disconti nued starting 06/27/2021, 6 completed End: 06-10-2021 CBC panel - Blood by Automated count CBC Lab Timed Tomorrow AM for 2 Occurrences starting 06/09/2021 until 06/10/2021 [facility] Work Phone: Comment on above: Tomorrow AM for 2 Oc currences starting 06/09/2021 until 06/10/2021 CBC panel - Blood by Automated count CBC Lab Timed 06/09/2021 12:19 AM EST [facility] Work Phone: CBC panel - Blood by Automated count CBC Lab Timed 06/10/2021 1:16 AM EST [facility] Work Phone: CBC W Auto Different ial panel - Blood CBC Auto Differential Lab Routine Daily until discontinued starting 06/09/2021, 9 completed [facility] Work Phone: Comment on above: Daily until disconti nued starting 06/09/2021, 9 completed End: 06-15-2021 COVID-19, Antigen COVID-19, Antigen Point of Care Testing Routine One Time for 1 Occurrences starting 06/15/2021 until 06/15/2021 [facility] Work Phone: Comment on above: One Time for 1 Occur rences starting 06/15/2021 until 06/15/2021 End: 07-02-2021 Culture, Urine Culture, Urine Microbiology Routine One Time for 1 Occurrences starting 07/02/2021 until 07/02/2021 [facility] Work Phone: Comment on above: One Time for 1 Occur rences starting 07/02/2021 until 07/02/2021 End Tidal CO2 Continuous End Tid al CO2 Continuous Respiratory Care Routine Daily until discontinued starting 06/26/2021 [facility] Work Phone: Comment on above: Daily until disconti nued starting 06/26/2021 End: 06-08-2021 FL Greater Than 1 Hour [facility] Work Phone: Comment on above: Once for 1 Occurrenc es starting 06/08/2021 until 06/08/2021 End: 06-26-2021 FL LESS THAN 1 HOUR [facility] Work Phone: Comment on above: Once for 1 Occurrenc es starting 06/26/2021 until 06/26/2021 End: 06-29-2021 Home O2 eval (desaturation screen) Home O2 eval (desaturation screen) Respiratory Care Routine One Time for 1 Occurrences starting 06/29/2021 until 06/29/2021 [facility] Work Phone: Comment on above: One Time for 1 Occur rences starting 06/29/2021 until 06/29/2021 End: 06-26-2021 Oxygen nasal cannula oxygen Oxygen nasal cannula oxygen Respiratory Care STAT Continuous until discontinued starting 06/26/2021 [facility] Work Phone: Comment on above: Continuous until dis continued starting 06/26/2021 Oxygen therapy [Mini mum Data Set] Initiate Oxygen Therapy Protocol Respiratory Care Routine Daily until discontinued starting 06/06/2021 [facility] Work Phone: Comment on above: Daily until disconti nued starting 06/06/2021 Oxygen therapy [Mini mum Data Set] Initiate Oxygen Therapy Protocol Respiratory Care Routine As Needed until discontinued starting 06/26/2021 [facility] Work Phone: Comment on above: As Needed until disc ontinued starting 06/26/2021 Patient referral [facility] Work Phone: Sodium [Moles/volume ] in Serum or Plasma Sodium Lab Routine 06/09/2021 12:19 AM EST [facility] Work Phone: Sodium [Moles/volume ] in Serum or Plasma Sodium Lab Routine 06/09/2021 12:19 AM EST [employer] Work Phone: End: 06-08-2021 SODIUM, WHOLE BLOOD SODIUM, WHOLE BLOOD Lab Routine One Time for 1 Occurrences starting 06/08/2021 until 06/08/2021 [facility] Work Phone: Comment on above: One Time for 1 Occur rences starting 06/08/2021 until 06/08/2021 End: 07-02-2021 Urinalysis Urinalysis Lab Routine One Time for 1 Occurrences starting 07/02/2021 until 07/02/2021 [facility] Work Phone: Comment on above: One Time for 1 Occur rences starting 07/02/2021 until 07/02/2021 Immunizations Immunization Date Immunization Notes Care Provider Fa jaclyn 05-21-2016 pneumococcal conjuga te vaccine, [address] LOTUS MAGALLON DO [facility] 12-05-2013 pneumococcal polysaccharide vaccine, [address] LOTUS MAGALLON DO [facility] 12-05-2013 zoster vaccine, live DR DILAN MAGALLON DO [facility] Payers Date Payer Category Payer Private Health Insurance [facility] [id number] 2023 Private Health Insurance [id number] 2023 Self-pay [id number] 2021 Medicare [id number] 1940 Unknown [id number] 2.16.8 [id number] 1940 Unknown [id number] 2.16.8 [id number] 1940 Unknown [id number] 2.16.8 [id number] 1940 Unknown [id number] 2.16.8 [id number] 1941 Unknown [id number] 2.16. [id number] 1940 Unknown [id number] 2.16.8 [id number] 1940 Unknown [id number] 2.16.8 [id number] Unknown [id number] 2.16.8 [id number] Unknown [id number] 2.16.8 [id number] Unknown [id number] 2.16.8 [id number] Social History Date Type Detail Facility Start: 04-16-2019 End: 09-14-2024 Ex-smoker (finding) [facility] Start: 1940 Sex Assigned At Female [facility] Start: 06-05-2021 Tobacco use and exposure User of smokeless tobacco [facility] Work Phone: Start: 1940 Sex Assigned At Not on file [facility] Work Phone: Start: 06-05-2021 End: 06-12-2022 Tobacco smoking status [facility] Tobacco smoking consumption unknown [facility] Exposure to SARS-CoV -2 (event) Not sure [facility] Sexual Orientation [facility] Start: 10-18-2018 Sex Female (finding) [facility] Goals Date Patient Goal Desired Activity /State Functional Status Date Assessment Result Facility 06-13-2022 Functional status Bedrest [facility] Work Phone: 09-18-2021 Functional status Ambulates [facility] Work Phone: Mental Status Date Assessment Result Facility 06-13-2022 Cognitive function Voice/Name [facility] Work Phone: 09-18-2021 Cognitive function Voice/Name [facility] Work Phone: 09-07-2021 Cognitive function Anxious [facility] Work Phone: Clinical Notes 10-24-2020 to 03-04-2024 Note Date & Type Note Facility 03-04-2024 Note . MICRO - Microbiology PROCEDURE: Urine Culture [*1] SOURCE: Urine, Clean Catch BODY SITE: COLLECTED DATE/TIME: 03/02/2024 16:18 EST RECEIVED DATE/TIME: 03/02/2024 19:12 EST START DATE/TIME: 03/02/2024 19:12 EST FREE TEXT SOURCE: FINAL REPORTS Final Report [] Verified Date/Time/Personnel: 03/04/2024 07:37 EST <10,000 cfu/ml. No Significant growth. Sensitivity not indicated. PRELIMINARY REPORTS Preliminary Report [] Verified Date/Time/Personnel: 03/03/2024 08:42 EST No growth to date Performing Locations *1: This test was performed at: [facility], [address] [place] [address], [id number] , [facility] 06-12-2022 Progress note Note Date/Time June 12, 2022 4:45pm [facility] Medical Records Department [address] [place] [address] Progress Note - Hospitalist 06/12/22 1641 MR#: [id number] Acct: [id number] Name: DEBRA COLE Rep #:[id number] : 1940 82 From: Harley Perez DO PCP: Dr. Jamie Boateng MD Status:ADM IN Location: [place] [address] Reason for Visit Reason for Visit: Diagnoses Pneumonia, unspecified organism (06/10/22) Disorientation, unspecified (06/10/22) Subjective Subjective Patient was seen and examined today, earlier today she had hallucinations in theroom, I talked with her daughter by phone today, patient has no history of dementia. I had an arterial blood gas performed, patient had a PCO2 of 56 and aPO2 of 83 with a pH of 7.35 on 2 L. Patient is chronically on Ativan at home according to the daughter and she has taken it for many years, the only other medication that would possibly cause a problem with the patient's mentation wouldbe [place], I am not sure if she is asking for the [place]. Patient was not hallucinating at the time of my examination today. Patient's chest x-ray reveals stable cardiomegaly and mild diffuse interstitial pattern. There were no acute findings. Objective Data Objective Data Vital Signs: Vital Signs Temp Pulse Resp BP Pulse Ox O2 Del Method O2 Flow Rate 98.5 F 82 18 93/70 96 Nasal Cannula 3 06/12/22 10:28 06/12/22 15:33 06/12/22 15:33 06/12/22 10:28 06/12/22 15:33 06/12/22 15:33 06/12/22 15:33 Oxygen Flow Rate (L/min) 3 Oxygen Delivery Method Nasal Cannula Weight: 38.5 kg Body Mass Index (BMI) 15.5 Intake & Output: Intake and Output for Last 24 Hours 06/10/22 06/11/22 06/12/22 23:59 23:59 23:59 Intake Total 545 / 765 1080 / 1180 600 / 600 Output Total 650 / 1050 975 / 1275 800 / 800 Balance -105 / -285 105 / -95 -200 / -200 Medical Nutrition Assessment Dietitian: Malnutrition Criteria Met Start: 06/11/22 13:01 Freq: Status: Active Protocol: Document 06/11/22 13:01 (Rec: 06/11/22 13:01 [id number]) Nutrition Malnutrition Evidence of Malnutrition Exists Yes Malnutrition (severe): Chronic Evidenced By Suboptimal Energy Intake ( Severe),Physical Changes ( Severe) Clinical Problem Chronic Disease or Condition Related Malnutrition Etiology chronic, severe malnutrition related to inadequate energy intake Signs/Symptoms as evidenced by estimated PO intake meeting <75% of estimated energy needs > 3 months; severe muscle wasting and fat loss evident per physical exam in orbital, clavicle, temporal and acromion areas; BMI 15.5 Status Active Problem Recommendation Dietitian Recommendations/Changes will adjust diet to regular given signs/symptoms of malnutrition; will add ensure plus high protein 120mL 4x/day w/ medpass for additional calories/protein if consumed Lab / Micro Data Result Diagrams: 06/11/22 05:36 06/11/22 05:36 Micro: Microbiology 06/10/22 12:15 Nasal Secretion SARS-CoV-2 & FLU Antigen (Rapid) - Final Radiography Diagnostic Testing: Radiology Impression Chest X-Ray 06/12/22 05:30 IMPRESSION: Stable cardiomegaly, aortic tortuosity with calcification and mild diffuse interstitial pattern. No acute finding. Electronically Signed: Isaak Grande, at 10:37 EST , Rhythm Strip Rhythm Strip: Sinus Rhythm Rate: 79 Ectopy: None Physical Exam Narrative alert Constitutional Narrative: Patient appears frail and older than her stated age Orientation / Consciousness: confused HEENT head/scalp atraumatic and moist oral mucous membranes Neck supple and no JVD Resp normal respiratory effort, no retractions and no use of accessory muscles Resp Narrative: Decreased breath sounds are noted bilaterally Cardio regular rate, regular rhythm, S1 normal heart sound, S2 normal heart sound and no murmurs GI normal to inspection, nondistended, normoactive bowel sounds, soft to palpation,non-tender and non-distended Neuro CN's II-XII intact bilaterally and moves all extremities Sensorium / Orientation: alert Assessment & Plan Assessment/Plan (1) Community acquired pneumonia: PLAN: Plan 1. Acute metabolic encephalopathy-secondary to community-acquired pneumonia andexacerbation of diastolic congestive heart failure-I am not absolutely sure whatcaused the patient to have hallucinations today, I have decided to take her off of Levaquin and place her on Augmentin, she is off Lasix right now and I do not think she needs to go back on it. #2 community-acquired pneumonia-patient is now on Augmentin #3 acute exacerbation of diastolic heart failure-resolved at this time #4 chronic hypoxic respiratory failure secondary to COPD-patient remains on nasal cannula O2 #5 essential hypertension-continue present medications #6 chronic anxiety-patient is on Ativan #7 hypothyroidism-patient is on Synthroid Total clinical time spent by myself addressing the patient's medical problems, reviewing all of her data, and collaborating with the patient's care team: 37 minutes Charges/Coding Visit Charges Inpatient E&M: 44154 Subs Hosp L2 06/12/22 1645 <Electronically signed by Harley Perez DO> Cosigner Signature (if applicable): CC: ~ Signed [facility] Work Phone: 1(416) 700-651602-18-[address] Perez [facility] June 12, 2022 9:21am Note Date/Time June 11, 2022 7:55pm [facility] Medical Records Department [facility] [place] [address] Progress Note - Hospitalist 06/11/221952 MR#: [id number] Acct: [id number] Name: DEBRA COLE Rep #:[id number] : 1940 82 From: Halrey Perez DO PCP: Dr. Jamie Boateng MD Status:ADM IN Location: [place] [address] Reason for Visit Reason for Visit: Diagnoses Pneumonia, unspecified organism (06/10/22) Disorientation, unspecified (06/10/22) Subjective Subjective Patient was seen and examined today, she still appears to be confused, MRI did not show an acute stroke. Patient continues to be given IV Lasix, at this time,patient is on room air, blood pressure is trending low however, at this time, I will stop the patient's Lasix. Objective Data Objective Data Vital Signs: Vital Signs Temp Pulse Resp BP Pulse Ox O2 Del Method O2 Flow Rate 98.8 F 72 14 97/57 L 100 Room Air 3 06/11/22 16:19 06/11/22 16:19 06/11/22 16:19 06/11/22 16:19 06/11/22 16:19 06/11/22 16:19 06/11/22 11:12 Oxygen Flow Rate (L/min) 3 Oxygen Delivery Method Room Air Weight: 38.5 kg Body Mass Index (BMI) 15.5 Intake & Output: Intake and Output for Last 24 Hours 06/09/22 06/10/22 06/11/22 23:59 23:59 23:59 Intake Total 545 / 765 1080 / 1080 Output Total 650 / 1050 975 / 975 Balance -105 / -285 105 / 105 Medical Nutrition Assessment Dietitian: Malnutrition Criteria Met Start: 06/11/22 13:01 Freq: Status: Active Protocol: Document 06/11/22 13:01 (Rec: 06/11/22 13:01 [id number]) Nutrition Malnutrition Evidence of Malnutrition Exists Yes Malnutrition (severe): Chronic Evidenced By Suboptimal Energy Intake ( Severe),Physical Changes ( Severe) Clinical Problem Chronic Disease or Condition Related Malnutrition Etiology chronic, severe malnutrition related to inadequate energy intake Signs/Symptoms as evidenced by estimated PO intake meeting <75% of estimated energy needs > 3 months; severe muscle wasting and fat loss evident per physical exam in orbital, clavicle, temporal and acromion areas; BMI 15.5 Status Active Problem Recommendation Dietitian Recommendations/Changes will adjust diet to regular given signs/symptoms of malnutrition; will add ensure plus high protein 120mL 4x/day w/ medpass for additional calories/protein if consumed Lab / Micro Data Result Diagrams: 06/11/22 05:36 06/11/22 05:36 Labs: Laboratory Results - last 24 hr 06/11/22 05:36: WBC 13.0 H, RBC 4.07 L, Hgb 11.7 L, Hct 37.1, MCV 91.2 D, MCH 28.7, MCHC 31.5 L D, RDW Std Deviation 47.3 H, RDW Coeff of María 14.0, Plt Count 529 H, MPV 9.2, Neut % (Auto) Not Reportable, Absolute Neuts (auto) 11.4 H, Absolute Lymphs (auto) 0.78 L, Total Counted 100, Neutrophils % (Manual) 86 H, Band Neutrophils % 2, Lymphocytes % (Manual) 6 L, Monocytes % (Manual) 2, Metamyelocytes % 2 H, Myelocytes % 2 H, Diff Path Review Reviewed, Platelet Estimate MOD INC, RBC Morphology NORM C+C 06/11/22 05:36: Sodium 135 L, Potassium 4.3, Chloride 94 L, Carbon Dioxide 35.0 H, Anion Gap 6, BUN 36 H, Creatinine 1.19 H, Estim Creat Clear Calc 22.53, Est GFR (MDRD) Af Amer 56 L, Est GFR (MDRD) Non-Af 46 L, BUN/Creatinine Ratio 30.3 H, Glucose 168 H, Calcium 9.1, Total Bilirubin 0.20, AST 14 L, ALT 13, Alkaline Phosphatase 153 H, Total Protein 6.2 L, Albumin 2.4 L, Globulin 3.8, Albumin/Globulin Ratio 0.6 L 06/11/22 05:36: B-Natriuretic Peptide 527.0 H Micro: Microbiology 06/10/22 12:15 Nasal Secretion SARS-CoV-2 & FLU Antigen (Rapid) - Final Radiography Diagnostic Testing: Radiology Impression Brain MRI 06/10/22 18:12 IMPRESSION: 1. Diffuse involutional change and chronic microvascular deep white matter disease. 2. No mass, hemorrhage, or acute territorial infarct. 3. No radiographically significant sinus disease. Electronically Signed: Andres Huggins MD at 19:52 EST , Rhythm Strip Rhythm Strip: Sinus Rhythm Rate: 79 Ectopy: None Physical Exam Const alert Constitutional Narrative: Patient appears frail and older than her stated age Orientation / Consciousness: confused HEENT head/scalp atraumatic and moist oral mucous membranes Neck supple and no JVD Resp normal respiratory effort, no retractions and no use of accessory muscles Resp Narrative: Decreased breath sounds are noted bilaterally Cardio regular rate, regular rhythm, S1 normal heart sound, S2 normal heart sound and no murmurs GI normal to inspection, nondistended, normoactive bowel sounds, soft to palpation,non-tender and non-distended Neuro CN's II-XII intact bilaterally and moves all extremities Sensorium / Orientation: alert Assessment & Plan Assessment/Plan (1) Community acquired pneumonia: PLAN: Plan 1. Acute metabolic encephalopathy-secondary to community-acquired pneumonia andexacerbation of diastolic congestive heart failure-patient's Lasix will be stopped due to low blood pressure, she will be maintained on IV antibiotics for now, chest x-ray will be repeated tomorrow #2 community-acquired pneumonia-again chest x-ray will be repeated tomorrow, continue antibiotics #3 acute exacerbation of diastolic heart failure-I have elected to stop the patient's IV Lasix due to low blood pressure #4 chronic hypoxic respiratory failure secondary to COPD-patient remains on nasal cannula O2 #5 essential hypertension-continue present medications #6 chronic anxiety-patient is on Ativan #7 hypothyroidism-patient is on Synthroid Total clinical time spent by myself addressing the patient's medical problems, reviewing all of her data, and collaborating with the patient's care team: 35 minutes Charges/Coding Visit Charges Inpatient E&M: 35571 Subs Hosp L2 06/12/22 0921 <Electronically signed by Harley Perez DO> Cosigner Signature (if applicable): CC: ~ Signed [facility] Work Phone: [phone] 464-718102-16-2023 History and physical note Author Dr. Goodman [facility] June 10, 2022 7:43pm Note Date/Time June 10, 2022 4:17pm [facility] Medical Records Department [address] [place] [address] H&P Exam - Hospitalist 06/10/22 1616 MR#: [id number] Acct: [id number] Name: DEBRA COLE Rep #:[id number] : 1940 82 From: Felisha Goodman MD PCP: Dr. Jamie Boateng MD Status:ADM IN Location: U [id number] HPI - General General Date of Admission: 06/10/22 Date of Service: 06/10/22 Chief Complaint: Confusion - ongoing for 3 days HPI Narrative DEBRA COLE, is a 82 F who presents with the above. Patient has past medical history of hypertension, anxiety disorder seen via squad with confusion and shortness of breath. Patient is a poor historian and history was taken from [facility] on phone. Patient lives with her son. She is usually alert oriented x3. She typically wears 3 L of oxygen. Her daughter went to see her today when patient stated that she felt confused and felt like maybe she had a stroke. She stated that this has been ongoing since Tuesday according to the patient. She also complainsof shortness of breath. Denied any fever or chills or cough or sick contacts. Patient had admitted to having difficulty bringing up sputum. Her initial vitals in the ED showed blood pressure 174/72, heart rate 87, respiratory rate 18, temperature 98.1 F, oxygen sat was 100% on 3 L of oxygen. WBC 15.6, hemoglobin 12.3, platelets 497, ABG showed pH 7.35, PCO2 56.6, BMP wasunremarkable except for BUN of 26, creatinine 0.81, troponin was 13, BNP up was 581.9 Admitting chest x-ray showed increasing pulmonary vascular congestion, new bibasilar pulmonary densities representing pneumonia or pulmonary edema. CT of the brain showed no acute intracranial abnormality. CTA of the chest was negative for acute PE, showed interstitial pneumonia/pulmonary fibrosis with superimposed pulmonary edema, small bilateral pleural effusion. [facility] Medical History COPD (chronic obstructive pulmonary disease) Former smoker Gluten intolerance Hypertension Smoker Stroke/cerebrovascular accident Home Medications levothyroxine 75 mcg tablet 75 mcg PO DAILY THYROID 06/05/21 [History Last Taken 06/09/22] lisinopril 20 mg tablet 20 mg PO DAILY BLOOD PRESSURE 06/05/21 [History Last Taken 06/09/22] metoprolol succinate 50 mg tablet,extended release 24 hr 50 mg PO QPM BLOOD PRESSURE 06/05/21 [History Last Taken 06/09/22 06:00] montelukast 10 mg tablet (Singulair) 10 mg PO QHS BREATHING 06/05/21 [History Last Taken 06/09/22] clopidogrel 75 mg tablet 75 mg PO DAILY BLOOD THINNER 09/07/21 [History Last Taken 06/09/22] hydrocodone-acetaminophen 5-325mg 5mg-325mg 1 tab PO Q6H PRN Pain 06/10/22 [History Last Taken 06/08/22] lorazepam 2 mg tablet 2 mg PO TID ANXIETY 06/10/22 [History Last Taken 06/09/22] oxybutynin chloride 5 mg tablet,extended release 24 hr 5 mg PO DAILY OVERACTIVE BLADDER 06/10/22 [History Last Taken 06/09/22] Allergy/AdvReac Type Severity Reaction Status Date / Time meperidine [From Demerol] Allergy Rash Verified 06/10/22 11:33 Family History Mother Hypertension Heart disease Father Hypertension Cancer Hx prostate CA. Other CVA (cerebral vascular accident) Surgical History History of total left hip replacement Hx of breast implants, bilateral Social History household members: other details: Son's girlfriend Smoking Status: Former smoker how long ago did patient quit smoking: Reports recently quit cigarette tobacco,prior heavy since youth. 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 substance use type: does not use ROS ROS Narrative Patient appeared intermittently confused Review of Systems ROS Unobtainable: due to encephalopathy Vital Signs Vital Signs Vital Signs: 06/10/22 11:28 06/10/22 11:35 06/10/22 12:13 Temperature 98.1 F Temperature Source Oral Pulse Rate 87 71 Respiratory Rate 18 25 H Respiratory Effort Normal Non-Labored Respiratory Depth Normal Respiratory Pattern Normal Blood Pressure 174/72 H Blood Pressure Mean 106 Pulse Ox 100 Oxygen Delivery Method Nasal Cannula Oxygen Flow Rate (L/min) 3 06/10/22 12:13 06/10/22 13:30 06/10/22 14:43 Temperature 98.1 F 96.8 F L Temperature Source Oral Temporal Pulse Rate 82 77 Respiratory Rate 24 H 18 Respiratory Effort Respiratory Depth Respiratory Pattern Blood Pressure 145/70 H 145/68 H Blood Pressure Mean 95 93 Pulse Ox 96 99 98 Oxygen Delivery Method Nasal Cannula Nasal Cannula Nasal Cannula Oxygen Flow Rate (L/min) 2 3 3 06/10/22 16:13 Temperature 98.3 F Temperature Source Temporal Pulse Rate 86 Respiratory Rate 18 Respiratory Effort Respiratory Depth Respiratory Pattern Blood Pressure 147/69 H Blood Pressure Mean 95 Pulse Ox 99 Oxygen Delivery Method Nasal Cannula Oxygen Flow Rate (L/min) 2 Weight Weight: 40.5 kg Body Mass Index (BMI) 16.3 Physical Exam Narrative Physical exam: General: Alert, Oriented x3, intermittently confused and tangential cooperative,on 3 L of oxygen with mild respiratory distress with use of accessory muscles ofrespiration HEENT: Atraumatic Oral: Moist Mucosa Neck: Supple Lungs: Diminished to auscultation especially the lung bases Cardiovascular: HS I+II, regular, no murmurs Abdomen: Bowel Sounds Present, Soft, Non Tender Extremities: Trace bilateral edema Skin: No rashes, No breakdown Neurological: Grossly intact Psych/Mental Status: Appropriate Results Lab / Micro Data Result Diagrams: 06/10/22 12:15 06/10/22 12:15 Labs: Laboratory Results - last 24 hr 06/10/22 12:15: WBC 15.6 H, RBC 4.24, Hgb 12.3, Hct 41.4, MCV 97.6, MCH 29.0, MCHC 29.7 L, RDW Std Deviation 51.2 H, RDW Coeff of María 14.1, Plt Count 497 H, MPV 9.2, Immature Gran % (Auto) 4.000 H, Neut % (Auto) 81.2 H, Lymph % (Auto) 6.3 L, Sumter % (Auto) 7.6, Eos % (Auto) 0.6, Baso % (Auto) 0.3, Absolute Neuts (auto) 12.7 H, Absolute Lymphs (auto) 0.99, Nucleated RBC % 0 06/10/22 12:15: Sodium 136, Potassium 4.4, Chloride 101, Carbon Dioxide 28.0, Anion Gap 7, BUN 26 H, Creatinine 0.81, Estim Creat Clear Calc 34.83, Est GFR (MDRD) Af Amer 87, Est GFR (MDRD) Non-Af 72, BUN/Creatinine Ratio 32.1 H, Glucose 85, Calcium 9.4, Troponin I High Sens 13 06/10/22 12:15: B-Natriuretic Peptide 581.9 H Micro: Microbiology 06/10/22 12:15 Nasal Secretion SARS-CoV-2 & FLU Antigen (Rapid) - Final ABG Data ABG results: ABG 06/10/22 12:29 Specimen Type ART Sample Site R Radial pH 7.35 Bicarbonate Actual 31.4 H Total CO2 33 Base Excess 6 H O2 Saturation 95 ABG pCO2 56.6 H ABG pO2 83 Alec Test Positive Liter Flow 2.0 Rhythm Strip Rhythm Strip: Sinus Rhythm Rate: 79 Ectopy: None Radiology Impression Chest X-Ray 06/10/22 12:53 IMPRESSION: Increasing pulmonary vascular congestion. New bibasilar pulmonary densities which may represent pneumonia and/or pulmonary edema. COPD. Electronically Signed: Jordan Kellogg MD at 13:24 EST , Brain CT 06/10/22 13:35 IMPRESSION: 1. No acute intracranial abnormality. 2. Stable senescent changes. Electronically Signed: Jordan Kellogg MD at 15:13 EST , Chest CTA 06/10/22 13:36 IMPRESSION: 1. No evidence of acute pulmonary embolism. 2. Pulmonary emphysema. 3. Interstitial pulmonary densities and bibasilar honeycombing suggestive of usual interstitial pneumonia/pulmonary fibrosis. Suspect superimposed pulmonary edema. 4. Small bilateral pleural effusions and calcific pleural plaquing. 5. Left ventricular hypertrophy Electronically Signed: Jordan Kellogg MD at 15:19 EST , Assessment & Plan Assessment/Plan (1) Acute confusion: (2) Community acquired pneumonia: PLAN: Plan 1. Acute metabolic encephalopathy likely secondary to probable acute pneumonia/acute exacerbation of heart failure Patient is reportedly usually alert oriented x3; intermittently confused We will also need to rule out acute CVA with MRI Continue to monitor mentation 2. Probable acute interstitial pneumonia, seen on chest x-ray/CTA of the chest We will start empirically on Levaquin; check sputum culture Repeat chest x-ray in a.m. 3. Probable acute exacerbation of heart failure with preserved EF, EF 55% Admitting BNP of more than 600 Patient clinically does not look fluid overloaded Chest x-ray and CT of the chest suggestive of pulmonary edema We will start on Lasix 20 mg IV twice daily, repeat BNP as well as CXR In a.m. 4. Probable acute CVA, patient with no specific neurodeficits except for confusion We will get an MRI of the brain first to rule out acute CVA Continue on Plavix for now 5. Chronic hypoxic respiratory failure secondary to COPD, not in acute exacerbation, Will continue with prn breathing treatments, continue on oxygen 6. Anxiety disorder, continue on lorazepam 7. Hypertension, continue metoprolol and lisinopril 8. Hypothyroidism, continue on synthroid 9. DVT PPx- Lovenox SC Total time spent: 80 minutes of which more > 50% was spent in reviewing patient's chart, laboratory investigations, imaging, discussing with emergency physician, calling patient's daughter on phone for history, discussing plan of care with daughter and physical examining patient. Charges/Coding Visit Charges Inpatient E&M: 03694 Init Hosp L3 06/10/221942 <Electronically signed by Felisha Goodman MD> Cosigner Signature (if applicable): CC: Dr. Felisha Goodman MD; Dr. Jamie Boateng MD~ Signed [facility] Work Phone: 1(524) 720-221402-16-[address] [facility] June 10, 2022 4:14pm Note Date/Time June 10, 2022 4:02pm [facility] Medical Records Department [address] [place] [address] Emergency Department Summary 06/10/22 MR#: [id number] Acct: [id number] Name: DEBRA COLE Rep #:[id number] : 1940 82 From: Malini Gresham PCP: Dr. Jamie Boateng MD Status:REG ER Location: ED HPI History of Present Illness Chief Complaint: Shortness of Breath Informant: patient, family and EMS Narrative Narrative: Patient is an 82-year-old female with history of peripheral artery disease, severe malnutrition, hyponatremia, hypertension, prior stroke and COPD on 2-1/2 L at baseline. Patient was more short of breath and continued to be confused today. Per EMS she was 83% on 3 L when they arrived. She states her oxygen wasworking. No fevers. Has had increased cough for the past week. Lives with her son and [id number]. Apparently on Tuesday night patient's was confused, not talkingright and difficult to understand. Patient states that she was playing Scrabble and then could not get the buttons. Not sure if she had a fever butdid have some shaking chills on Tuesday. Patient has no other complaints at thistime. She states she does not see a development specialist. [facility] Medical History COPD (chronic obstructive pulmonary disease) Former smoker Gluten intolerance Hypertension Smoker Stroke/cerebrovascular accident Home Medications levothyroxine 75 mcg tablet 75 mcg PO DAILY THYROID 06/05/21 [History Last Taken 06/09/22] lisinopril 20 mg tablet 20 mg PO DAILY BLOOD PRESSURE 06/05/21 [History Last Taken 06/09/22] metoprolol succinate 50 mg tablet,extended release 24 hr 50 mg PO QPM BLOOD PRESSURE 06/05/21 [History Last Taken 06/09/22 06:00] montelukast 10 mg tablet (Singulair) 10 mg PO QHS BREATHING 06/05/21 [History Last Taken 06/09/22] clopidogrel 75 mg tablet 75 mg PO DAILY BLOOD THINNER 09/07/21 [History Last Taken 06/09/22] hydrocodone-acetaminophen 5-325mg 5mg-325mg 1 tab PO Q6H PRN Pain 06/10/22 [History Last Taken 06/08/22] lorazepam 2 mg tablet 2 mg PO TID ANXIETY 06/10/22 [History Last Taken 06/09/22] oxybutynin chloride 5 mg tablet,extended release 24 hr 5 mg PO DAILY OVERACTIVE BLADDER 06/10/22 [History Last Taken 06/09/22] Allergy/AdvReac Type Severity Reaction Status Date / Time meperidine [From Demerol] Allergy Rash Verified 06/10/22 11:33 Family History Mother Hypertension Heart disease Father Hypertension Cancer Hx prostate CA. Other CVA (cerebral vascular accident) Surgical History History of total left hip replacement Hx of breast implants, bilateral Social History household members: other details: Son's girlfriend Smoking Status: Former smoker how long ago did patient quit smoking: Reports recently quit cigarette tobacco,prior heavy since youth. 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 substance use type: does not use ROS ROS ED Constitutional Constitutional ED: Reports chills; Denies fever(s) Eyes Eyes: Denies change in vision ENT ENT ED: Denies sore throat Cardiovascular Cardiovascular: Denies chest pain or palpitations Respiratory/Chest Respiratory/Chest: Reports cough and dyspnea Gastrointestinal Gastrointestinal: Denies abdominal pain, nausea or vomiting Genitourinary Genitourinary ED: Denies dysuria Musculoskeletal Musculoskeletal: Denies arthralgias or myalgias Integumentary Denies rash Neurologic Neurologic: Reports weakness Psychiatric Psychiatric: Denies anxiety Hematologic/Lymphatic Hematologic/Lymphatic: Denies easy bleeding or easy bruising EXAM Physical Exam Const Vital Signs: 06/10/22 11:28 06/10/22 11:35 06/10/22 12:13 Temperature 98.1 F Temperature Source Oral Pulse Rate 87 71 Respiratory Rate 18 25 H Respiratory Effort Normal Non-Labored Respiratory Depth Normal Respiratory Pattern Normal Blood Pressure 174/72 H Blood Pressure Mean 106 Pulse Ox 100 Oxygen Delivery Method Nasal Cannula Oxygen Flow Rate (L/min) 3 06/10/22 12:13 06/10/22 13:30 06/10/22 14:43 Temperature 98.1 F 96.8 F L Temperature Source Oral Temporal Pulse Rate 82 77 Respiratory Rate 24 H 18 Respiratory Effort Respiratory Depth Respiratory Pattern Blood Pressure 145/70 H 145/68 H Blood Pressure Mean 95 93 Pulse Ox 96 99 98 Oxygen Delivery Method Nasal Cannula Nasal Cannula Nasal Cannula Oxygen Flow Rate (L/min) 2 3 3 Positive cachectic General Appearance ED: cachectic and NAD; Negative for pallor Nutritional Appearance: cachectic HEENT Reports moist mucous membranes atraumatic Eyes PERRL and EOMs intact bilaterally Neck no lymphadenopathy and supple Resp Resp Narrative: Diminished breath sounds more pronounced on the right. Diminished breath soundsat the bases bilaterally. Mild end expiratory wheezing present Cardio regular rate and regular rhythm GI non-tender and non-distended Extremity normal to inspection General Extremety ED: Negative for edema or tenderness General Extremity: Negative for edema Neuro Neuro Narrative: Generally weak. No focal deficits appreciated. No slurred speech. Sensorium / Orientation: alert, oriented to person and oriented to place Psych mental status grossly normal Skin no wounds General Skin Exam: Negative for jaundice or pallor MDM MDM MDM Narrative Medical decision making narrative: Patient is evaluated for generalized weakness, confusion and shortness of breath. Symptoms seem to be going on for the past week. She seems more like anencephalopathy versus a focal stroke on my exam. We spoke with the family who was concerned about a stroke so a CT of the brain was ordered. No acute processwas found given that she is been having symptoms for at least 6 days I do not think there is a stroke as some he would have shown up on the CT at this point. She does have a leukocytosis with a white blood cell count of 15.6 and her BMP large unremarkable. High since he troponin normal at 13 however her BNP is elevated at 581. Chest x-ray to read by myself as well as radiology shows increasing pulmonary vascular congestion and new bibasilar pulmonary densities which could be pneumonia and/or pulmonary edema. CT of the chest with IV contrast ordered which is negative for pulmonary emboli but does show chronic findings with pulmonary emphysema as well as interstitial pulmonary densities and bibasilar honeycombing suggestive of unusual interstitial pneumonia/pulmonary fibrosis and suspect superimposed pulmonary edema. Patient has small bilateral pleural effusions. She has improvement of her symptoms withDuoNeb in the ER. She was treated with a dose of Solu-Medrol as well as Rocephin and azithromycin. Clinically she does not appear fluid overloaded we will hold on diuresis at this time however patient is not given IV fluids either. Given patient's pulmonary findings, frailness and confusion I do think she would benefit from admission. Patient agreeable this plan of care. She remains hemodynamically stable in the emergency room. This time she is not having increased oxygen demands and is at her baseline oxygen. ABG was obtainedto rule out hypercapnia and it showed a compensated respiratory acidosis consistent with chronic hypercapnic respiratory failure Lab Data Attestation: I reviewed the patient's lab results. Labs: Laboratory Results - last 24 hr 06/10/22 06/10/22 06/10/22 12:15 12:15 12:15 WBC 15.6 H RBC 4.24 Hgb 12.3 Hct 41.4 MCV 97.6 MCH 29.0 MCHC 29.7 L RDW Std Deviation 51.2 H RDW Coeff of María 14.1 Plt Count 497 H MPV 9.2 Immature Gran % (Auto) 4.000 H Neut % (Auto) 81.2 H Lymph % (Auto) 6.3 L Sumter % (Auto) 7.6 Eos % (Auto) 0.6 Baso % (Auto) 0.3 Absolute Neuts (auto) 12.7 H Absolute Lymphs (auto) 0.99 Nucleated RBC % 0 Sodium 136 Potassium 4.4 Chloride 101 Carbon Dioxide 28.0 Anion Gap 7 BUN 26 H Creatinine 0.81 Estim Creat Clear Calc 34.83 Est GFR (MDRD) Af Amer 87 Est GFR (MDRD) Non-Af 72 BUN/Creatinine Ratio 32.1 H Glucose 85 Calcium 9.4 Troponin I High Sens 13 B-Natriuretic Peptide 581.9 H ABG Data ABG results: ABG 06/10/22 12:29 Specimen Type ART Sample Site R Radial pH 7.35 Bicarbonate Actual 31.4 H Total CO2 33 Base Excess 6 H O2 Saturation 95 ABG pCO2 56.6 H ABG pO2 83 Alec Test Positive Liter Flow 2.0 Radiography Diagnostic Testing: Clinical Impression(s) from Imaging Studies Chest X-Ray 06/10/22 12:53 IMPRESSION: Increasing pulmonary vascular congestion. New bibasilar pulmonary densities which may represent pneumonia and/or pulmonary edema. COPD. Electronically Signed: Jordan Kellogg MD at 13:24 EST , Brain CT 06/10/22 13:35 IMPRESSION: 1. No acute intracranial abnormality. 2. Stable senescent changes. Electronically Signed: Jordan Kellogg MD at 15:13 EST , Chest CTA 06/10/22 13:36 IMPRESSION: 1. No evidence of acute pulmonary embolism. 2. Pulmonary emphysema. 3. Interstitial pulmonary densities and bibasilar honeycombing suggestive of usual interstitial pneumonia/pulmonary fibrosis. Suspect superimposed pulmonary edema. 4. Small bilateral pleural effusions and calcific pleural plaquing. 5. Left ventricular hypertrophy Electronically Signed: Jordan Kellogg MD at 15:19 EST , Rhythm Strip Rhythm Strip: Sinus Rhythm Rate: 79 Ectopy: None EKG Initial EKG: Attestation: I personally reviewed and interpreted this EKG as follows: Interpretation: Sinus Rhythm Comments: Normal sinus rhythm at a rate of 79 bpm Possible left atrial enlargement Right axis Normal ST segments Normal intervals Discharge Plan Triage Chief Complaint: Shortness of Breath Other Complaint: Confusion ED Provider: Malini Bruce Dx/Rx/DC Orders Clinical Impression: Acute confusion, Community acquired pneumonia, Chronic respiratory acidosis Prescriptions: No Action levothyroxine 75 mcg Tablet 75 mcg PO DAILY metoprolol succinate 50 mg Tablet Extended Release 24 Hr 50 mg PO QPM lisinopril 20 mg Tablet 20 mg PO DAILY montelukast [Singulair] 10 mg Tablet 10 mg PO QHS clopidogrel 75 mg Tablet 75 mg PO DAILY hydrocodone-acetaminophen 5-325 mg tablet 1 tab PO Q6H PRN (Reason: Pain) lorazepam 2 mg tablet 2 mg PO TID oxybutynin chloride 5 mg tablet extended release 24hr 5 mg PO DAILY Primary Care Provider: Jamie Boateng Referrals: Jamie Boateng MD [Primary Care Provider] - Disposition Disposition: Acute Care Hospital [facility] What to do if you have Problems For any increased pain, shortness of breath, bleeding, nausea or vomiting, chestpain, or any unexpected problems, contact your Primary Care Provider. Call [facility] ([phone]) or report to the closest Emergency Room. Call 911 if necessary. 06/10/22 1614 <Electronically signed by Malini Bruce DO> Cosigner Signature (if applicable): CC: Dr. Jamie Boateng MD ~ Signed [facility] Work Phone: [phone]) 891-886408-12-2022 Evaluation + Plan note Diagnostic Tests Pending * Vitamin D Level 12/04/21 Future Scheduled Tests Laboratory* Urinalysis 08/04/21 * Lipid Profile 04/26/21 * Complete Metabolic Panel 04/26/[address] [facility] 03-10-2022 NoteHospitalist Discharge Summary Debra Cole : 1940 Admit date: 06/26/2021 Discharge date: Admitting Physician: Sumit Monroe MD Primary Care Physician: Jamie Boateng Discharge Diagnoses: #L recurrent hip dislocation only #COPD #HTN Chronic respiratory failure on home oxygen 3 L/min Anemia of chronic disease Severe malnutrition Hospital Course: Improved. Debra is a 81 y.o. female ?with past medical history significant for L hip Fx and dislocation who presents to [facility] with a CC of L hip pain.?? They described it to me as was reported by the ER: ? Debra Cole?is a 81 y.o.?female?who presents to the emergency department with a left hip dislocation/fracture. ?Patient was transferred from [facility] for left hip fracture/dislocation, recent hip replacement performed at our facility in mid May. Patient get admitted evaluated by surgery recommended conservative medical treatment Continue narcotics as needed Below daily progress notes 06/29 Pain is bearable with narcotics no acute events overnight Vital signs stable Continue the current medical management Continue PT OT Case discussed with nursing staff [employer] worker case management for discharge plan to long term facility -am labs -increase activity 06/30 Patient feeling better pain is better controlled denies any shortness of breath nausea constipation or diarrhea no acute events overnight Vital signs stable Continue the current medical management Continue PT OT Discharge plan to long term facility in progress Case discussed with nursing staff 07/01 Patient feeling okay no acute events overnight denies shortness of breath chest pain nausea constipation Stitches removed by orthopedic surgery team today Vital signs stable Continue the current medical management Continue PT OT Pending long term facility 07/02 Patient feeling okay denies any chest pain abdominal pain nausea or shortness of breath Vital signs stable Labs reviewed Continue current medical management Continue PT OT Order UA and urine culture Discharge to long term facility placement To follow up the result of urine culture with SNF doctor ADULT DIET; Regular Vitals: BP (!) 140/80 Pulse 63 Temp 97.6 ?F (36.4 ?C) (Temporal) Resp 16 Ht 5' 2 (1.575 m) Wt 85 lb (38.6 kg) SpO2 96% BMI 15.55 kg/m? Pulse Ox: SpO2 Av.6 % Min: 92 % Max: 100 % Supplemental O2: O2 Flow Rate (L/min): 2 L/min General appearance: alert and cooperative with exam Lungs: clear to auscultation bilaterally Heart: regular rate and rhythm, S1, S2 normal, no murmur, click, rub or gallop Abdomen: soft, non-tender; bowel sounds normal; no masses, no organomegaly Extremities: extremities normal, atraumatic, no cyanosis or edema dislocated left hip Neurologic: No obvious focal neurologic deficits. Recent Labs 06/27/21 0510 WBC 7.4 HGB 8.4* PLT 673* Recent Labs 06/27/21 0024 06/28/21 0030 06/29/21 0500 NA 130* 132* 128* K 3.5 4.0 4.2 CL 101 105 102 CO2 27 22 26 BUN 26* 30* 22* CREATININE 0.67 0.69 0.77 GLUCOSE 94 80 86 No results for input(s): AST, ALT, ALB, BILITOT, ALKPHOS in the last 72 hours. No results found for: TRIG, HDL, LDLCALC, CHOL No results found for: PHART, PO2ART, [id number] Recent Labs 06/27/21 0510 INR 1.1 No results for input(s): DDIMER in the last 72 hours. No components found for: HGBA1C No results found for: TSH Urine Culture: No results found for this or any previous visit. Significant Diagnostic Studies: XR HIP LEFT (2-3 VIEWS) Result Date: 06/26/2021 Patient Name: DEBRA COLE Diagnostic Radiology ACCESSION EXAM DATE/TIME PROCEDURE ORDERING PROVIDER [id number] 06/26/2021 09:28 EST CR Hip w/ Pelvis 2 or 3 [id number] POLY KEVIN Views Left n CPT code 82757 Reason For Exam (CR Hip w/ Pelvis 2 or 3 Views Left n) hip reduction Report PELVIS AND LEFT HIP: CLINICAL INDICATION: Left hip reduction. TECHNIQUE: AP pelvis plus AP and lateral views of the left hip COMPARISON: Radiograph from earlier today FINDINGS: Redemonstration of postsurgical changes in the left hip. A superior left hip dislocation is again seen. A left acetabular fracture is again seen. Report Dictated on --- Final --- Dictated: 06/26/2021 10:10 am Dictating Physician: MD KOLB NICHOLAS Signed Date and Time: 06/26/2021 10:11 am Signed by: MD KOLB NICHOLAS Transcribed Date and Time: 06/26/2021 10:10 XR HIP LEFT (2-3 VIEWS) Result Date: 06/26/2021 Patient Name: DEBRA COLE Diagnostic Radiology ACCESSION EXAM DATE/TIME PROCEDURE ORDERING PROVIDER [id number] 06/26/2021 06:28 EST CR Hip w/ Pelvis 2 or 3 [id number] DIANNA, Views Left n DEANNE CPT code 83700 Reason For Exam (CR Hip w/ Pelvis 2 or 3 Views Left n) dislocation Repo (more content not included)...[facility]03-10-2022 History of Present illness Narrative* Jeremiah Solorio, JOIST SETTER - PERFORMANCE IMPROVEMENT CONSULTANT - 07/02/2021 1:00 PM EST Images from the original note were not included. [facility] Wound Care Progress Note Debra Cole AGE: 81 y.o. GENDER: female : 1940 Subjective: HISTORY of PRESENT ILLNESS HPI Debra Cole is a 81 y.o. female who presents for a wound care follow up. History of Wound Context: patient with recent left hip replacement who has fallen now has a acute prosthetic left hip dislocation with left acetabular fracture with displaced bone fragments. Patient is demented and is a very poor historian. PAST MEDICAL HISTORY Diagnosis Date Cerebral artery occlusion with cerebral infarction (HCC) COPD (chronic obstructive pulmonary disease) (HCC) Hypertension PAST SURGICAL HISTORY Past Surgical History: Procedure Laterality Date COSMETIC SURGERY breast implants FRACTURE SURGERY left hip ORIF FEMUR DECOMPRESSION Left 06/08/2021 FAMILY HISTORY History reviewed. No pertinent family history. SOCIAL HISTORY Social History Tobacco Use Smoking status: Former Smoker Smokeless tobacco: Current User Vaping Use Vaping Use: Some days Substance Use Topics Alcohol use: Not on file Drug use: Not on file ALLERGIES Allergies Allergen Reactions Demerol Hcl [Meperidine] Rash MEDICATIONS No current facility-administered medications on file prior to encounter. Current Outpatient Medications on File Prior to Encounter Medication Sig Dispense Refill LORazepam (ATIVAN) 0.5 MG tablet Take 1 tablet by mouth every 8 hours as needed for Anxiety for up to 30 days. 15 tablet 0 oxybutynin (DITROPAN) 5 MG tablet Take 5 mg by mouth daily metoprolol succinate (TOPROL XL) 50 MG extended release tablet Take 50 mg by mouth daily lisinopril (PRINIVIL;ZESTRIL) 20 MG tablet Take 20 mg by mouth daily clopidogrel (PLAVIX) 75 MG tablet Take 75 mg by mouth daily montelukast (SINGULAIR) 10 MG tablet Take 10 mg by mouth nightly levothyroxine (SYNTHROID) 75 MCG tablet Take 75 mcg by mouth Daily REVIEW OF SYSTEMS Pertinent items are noted in HPI. Objective: BP 132/74 Pulse 64 Temp 97.4 F (36.3 C) (Temporal) Resp 16 Ht 5' 2 (1.575 m) Wt 85 lb (38.6 kg) SpO2 98% BMI 15.55 kg/m PHYSICAL EXAM General Appearance: well-developed and well nourished and in no acute distress Pulmonary: In no acute distress. Left dixon: 2x2x0.1cm denuded blister with small serous drainage. periwound fragile, edematous Right dixon: 2x2x0.1cm denuded blister with small serous drainage. periwound fragile, edematous Left calf: 5h0ktii intact fluid filled blister. periwound fragile. Left hip: incision well approximated with x32 shama. without s/s of infection. Scant serous drainage. Dressing intact. Sacrum: 2r0xhuc yellow sloughing surrounding by red viable tissue. Scant serosang drainage. LABS CBC: Lab Results Component Value Date WBC 7.4 06/27/2021 HGB 8.4 06/27/2021 HCT 26.0 06/27/2021 MCV 96.1 06/27/2021 PLT 673 06/27/2021 BMP: Lab Results Component Value Date NA 129 07/02/2021 K 4.3 07/02/2021 CL 99 07/02/2021 CO2 29 07/02/2021 BUN 27 07/02/2021 CREATININE 0.66 07/02/2021 PT/INR: Lab Results Component Value Date PROTIME 11.3 06/27/2021 INR 1.1 06/27/2021 Prealbumin: No results found for: PREALBUMIN Albumin: Lab Results Component Value Date LABALBU 3.6 06/06/2021 Sed Rate:No results found for: SEDRATE Micro: No results found for: BC Assessment/Plan: 1. Left hip surgical - cleanse with NS, mesalt, dcd daily and prn 2. Sacral unstageable pressure injury - cleanse with NS, santyl, maxorb, foam daily and prn - turn and reposition every 2 hours - p500 3. Left calf and dixon fluid overload - cleanse with NS, adaptic, abd/kerlix daily and prn - elevate 4. Right dixon fluid overload - cleanse with NS, adaptic, abd/kerlix daily and prn - elevate Nutritional support Follow up with wound care Any questions or concerns please vocera or perfect serve wound care. Thank you for the consult! I personally obtained the chong and critical portions of the history and physical exam. I reviewed the labs, imaging studies, and electronic medical record. I reviewed the chart documentation and discussed the patient with treatment team members. I have edited the note to reflect my clinical findingsand my assessment and plan. Please note, the time of this note does not reflect the time I saw thispatient today, but the time of this documentaton. Portions of this note including HPI, ROS, impression/plan, and examination may have been copied forward from admission to today as to provide important historical information essential in contributing to medical decision making. Documentation has been reviewed and edited as necessary to support clinical decision making for today's visit and to reflect my own independent evaluation of this patient. Decision making for today's visit and to reflectmy own independent evaluation of this patient. * Beth Bennett MD - 07/02/2021 12:16 PM EST Hospitalist Progress Note 06/29/21 12:16 PM Subjective: Admit Date: 06/26/2021 PCP: Jamie Boateng Interval History: No overnight issues. ADULT DIET; Regular ADULT ORAL NUTRITION SUPPLEMENT; AM Snack, PM Snack; Other Oral Supplement; Lottay Standard 1.4 I/O last 3 completed shifts: In: 850 [P.O.:850] Out: 250 [Urine:250] Date 07/02/21 0000 - 07/02/21 2359 Shift [id number] 0583-4118 24 Hour Total INTAKE P.O.(mL/kg/hr) 850 850 Shift Total(mL/kg) 850(22) 850(22) OUTPUT Shift Total(mL/kg) Weight (kg) 38.6 38.6 38.6 38.6 Patient Vitals for the past 96 hrs (Last 3 readings): Weight 07/02/21 0656 85 lb (38.6 kg) Medications: sodium chloride collagenase Topical Daily trospium 20 mg Oral BID AC propofol 50 mg IntraVENous Once sodium chloride flush 5-40 mL IntraVENous 2 times per day [Held by provider] enoxaparin 40 mg SubCUTAneous Daily [Held by provider] clopidogrel 75 mg Oral Daily levothyroxine 75 mcg Oral Daily lisinopril 20 mg Oral Daily montelukast 10 mg Oral Nightly metoprolol succinate 50 mg Oral Nightly No results for input(s): WBC, HGB, PLT in the last 72 hours. Recent Labs 06/30/21 0151 07/01/21 0011 07/02/21 0017 NA 132* 128* 129* K 4.4 4.1 4.3 CL 103 95* 99 CO2 25 31* 29 BUN 25* 27* 27* CREATININE 0.67 0.85 0.66 GLUCOSE 101* 112* 99 No results for input(s): AST, ALT, ALB, BILITOT, ALKPHOS in the last 72 hours. No results found for: TRIG, HDL, LDLCALC, CHOL No results found for: PHART, PO2ART, [id number] No results for input(s): INR in the last 72 hours. No results for input(s): CKTOTAL, CKMB, TROPONINI in the last 72 hours. No results for input(s): DDIMER in the last 72 hours. No components found for: HGBA1C No results found for: TSH Urine Culture: No results found for this or any previous visit. Objective: Vitals: BP 132/74 Pulse 64 Temp 97.4 F (36.3 C) (Temporal) Resp 16 Ht 5' 2 (1.575 m) Wt 85 lb (38.6 kg) SpO2 98% BMI 15.55 kg/m Pulse Ox: SpO2 Av.7 % Min: 97 % Max: 98 % Supplemental O2: O2 Flow Rate (L/min): 2 L/min General appearance: alert and cooperative with exam Lungs: clear to auscultation bilaterally Heart: regular rate and rhythm, S1, S2 normal, no murmur, click, rub or gallop Abdomen: soft, non-tender; bowel sounds normal; no masses, no organomegaly Extremities: extremities normal, atraumatic, no cyanosis or edema dislocated left hip Neurologic: No obvious focal neurologic deficits. 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 for discharge plan to long term facility -am labs -increase activity 06/30 Patient feeling better pain is better controlled denies any shortness of breath nausea constipationor diarrhea no acute events overnight Vital signs stable Continue the current medical management Continue PT OT Discharge plan to long term facility in progress Case discussed with nursing staff 07/01 Patient feeling okay no acute events overnight denies shortness of breath chest pain nausea constipation Stitches removed by orthopedic surgery team today Vital signs stable Continue the current medical management Continue PT OT Pending long term facility 07/02 Patient feeling okay denies any chest pain abdominal pain nausea or shortness of breath Vital signs stable Labs reviewed Continue current medical management Continue PT OT Order UA and urine culture Pending long term facility placement Advance Directive: Full Code Discharge planning: SNF 07/01 BETH BENNETT MD, MD Rounding Hospitalist * Latoya Love PA-C - 07/01/2021 5:38 PM EST Orthopedic surgery to bedside for surgical staple removal over her left proximal lateral thigh. Evaluation of surgical site demonstrates that the surgical incision is well approximated using shama. No active drainage, induration, or acute signs of infection. There is mild erythema surroundingthe surgical incision. Patient is nontender to palpation about the surgical incision. Using a staple removal kit, I careful ly removed each surgical staple without issue. Following completion of staple removal, the surgical incision remained well approximated without drainage. I placed 4 x 4 gauze and Tegaderm dressing over the surgical incision. Patient tolerated procedure well, noting that she was somnolent during procedure and slept during majority of staple removal. She reports that the dressings were comfortable. Orthopedic surgery to follow. Shyanne Botello Orthopedic Surgery ALEX * Chavez Rice PA-C - 07/01/2021 11:36 AM EST Images from the original note were not included. Department of Orthopedic Surgery Progress Note SUBJECTIVE: Patient is s/p left recurrent hemiarthroplasty dislocation with failed closed reduction in the emergency department and in the operating room on 06/26/2021. Patient resting in bed. Pain is overall wellcontrolled. Patient is somnolent throughout encounter. OBJECTIVE: LLE: Left hip dressing c/d/i. [place] have been removed. There is some surrounding erythema but no active drainage. PLAN: -No plan to return to OR -Given the fact that she is very comfortable and has displayed no evidence of acute pain, orthopedic surgery to leave her hip chronically dislocated and will continue nonoperative care. - Should she demonstrate pain, given her low demand status and dementia, would recommend a Girdlestone procedure with removal of the proximal body of the hemiarthroplasty rather than a complex reconstruction which would likely have a high rate of dislocation as well. -Okay to discontinue knee immobilizer -TDWB LLE for transfers, up with assistance -Dressing: Change dressing PRN saturation -Medical management, pain control, dvt prophylaxis per primary Spoke to patient regarding the post operative plan. Discharge instructions and follow up were explained. We discussed the natural course of injury and expectations moving forward. Patient voiced their understanding and is agreeable with the current plan. All questions were answered. Patient was advised to contact our office with any questions or concerns. Will plan for repeat AP pelvis in 1-2 weeks at facility. Chavez Rice PA-C Orthopedic Surgery * Beth Bennett MD - 07/01/2021 10:00 AM EST Hospitalist Progress Note 06/29/21 10:00 AM Subjective: Admit Date: 06/26/2021 PCP: Jamie Boateng Interval History: No overnight issues. ADULT DIET; Regular ADULT ORAL NUTRITION SUPPLEMENT; AM Snack, PM Snack; Other Oral Supplement; Lottay Standard 1.4 No intake/output data recorded. No data found. Medications: sodium chloride collagenase Topical Daily trospium 20 mg Oral BID AC propofol 50 mg IntraVENous Once sodium chloride flush 5-40 mL IntraVENous 2 times per day [Held by provider] enoxaparin 40 mg SubCUTAneous Daily [Held by provider] clopidogrel 75 mg Oral Daily levothyroxine 75 mcg Oral Daily lisinopril 20 mg Oral Daily montelukast 10 mg Oral Nightly metoprolol succinate 50 mg Oral Nightly No results for input(s): WBC, HGB, PLT in the last 72 hours. Recent Labs 06/29/21 0500 06/30/21 0151 07/01/21 0011 NA 128* 132* 128* K 4.2 4.4 4.1 CL 102 103 95* CO2 26 25 31* BUN 22* 25* 27* CREATININE 0.77 0.67 0.85 GLUCOSE 86 101* 112* No results for input(s): AST, ALT, ALB, BILITOT, ALKPHOS in the last 72 hours. No results found for: TRIG, HDL, LDLCALC, CHOL No results found for: PHART, PO2ART, PMO7GHO No results for input(s): INR in the last 72 hours. No results for input(s): CKTOTAL, CKMB, TROPONINI in the last 72 hours. No results for input(s): DDIMER in the last 72 hours. No components found for: HGBA1C No results found for: TSH Urine Culture: No results found for this or any previous visit. Objective: Vitals: BP 114/60 Pulse 83 Temp 99.8 F (37.7 C) (Temporal) Resp 16 Ht 5' 2 (1.575 m) Wt 85 lb (38.6 kg) SpO2 98% BMI 15.55 kg/m Pulse Ox: SpO2 Av.3 % Min: 97 % Max: 100 % Supplemental O2: O2 Flow Rate (L/min): 2 L/min General appearance: alert and cooperative with exam Lungs: clear to auscultation bilaterally Heart: regular rate and rhythm, S1, S2 normal, no murmur, click, rub or gallop Abdomen: soft, non-tender; bowel sounds normal; no masses, no organomegaly Extremities: extremities normal, atraumatic, no cyanosis or edema dislocated left hip Neurologic: No obvious focal neurologic deficits. 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 for discharge plan to long term facility -am labs -increase activity 06/30 Patient feeling better pain is better controlled denies any shortness of breath nausea constipationor diarrhea no acute events overnight Vital signs stable Continue the current medical management Continue PT OT Discharge plan to long term facility in progress Case discussed with nursing staff 07/01 Patient feeling okay no acute events overnight denies shortness of breath chest pain nausea constipation Stitches removed by orthopedic surgery team today Vital signs stable Continue the current medical management Continue PT OT Pending long term facility Advance Directive: Full Code Discharge planning: SNF 07/01 BETH BENNETT MD, MD Rounding Hospitalist * Oly Nair, DATABASE MANAGEMENT SPECIALIST - 06/30/2021 1:45 PM EST Occupational Therapy Facility/Department: [facility] Daily Treatment Note NAME: Debra Cole : 1940 Date of Service: 06/30/2021 Discharge Recommendations: Subacute/Half-Way Facility Assessment Assessment: Pt remains mildly confused and impulsive. Good observance of TDWB this session. Will need SNF level therapies at discharge. REQUIRES OT FOLLOW UP: Yes Safety Devices Type of devices: Left in chair;Call light within reach;Chair alarm in place Restrictions Left Lower Extremity Weight Bearing: Toe Touch Weight Bearing Subjective Subjective: Pt seated EOB, PT present. Pt agrees to OT. Incontinent of urine in bed. Pain Assessment Pain Level: 8 Pain Type: Acute pain Pain Location: Hip Vital Signs Patient Currently in Pain: Yes Objective ADL LE Dressing: Maximum assistance (don socks while seated EOB) Balance Sitting Balance: Supervision Standing Balance Comment: Min assist of 2, static stand at FWW. Several trials. Functional Mobility Functional Mobility Comments: Funct amb , 2 trials with FWW, min assist of 2. Good observance of TDWB, partially due to position of LLE and leg length discrepancy. Chair follow. Cues for sequencing, pt gets very close to front of FWW. Transfers Sit to stand: Minimal assistance Stand to sit: Minimal assistance (cues for hand placement) Plan Plan Comment: Cont OT per POC AM-PAC Score AM-PAC Inpatient Daily Activity Raw Score: 15 (06/30/21 1404) AM-PAC Inpatient ADL T-Scale Score : 34.69 (06/30/21 1404) ADL Inpatient CMS 0-100% Score: 56.46 (06/30/21 140) ADL Inpatient CMS G-Code Modifier : CK (06/30/211403) Goals Short term goal 1: Dynamic seated task with good sitting balance --PROGRESSING Short term goal 2: LE dressing, mod A --PROGRESSING Short term goal 3: Functional transfer with LRD, CGA ---PROGRESSING Short term goal 4: Toileting, including transfer, CGA --NOT ADDRESSED Short term goal 5: Demo good safety awareness with use of FWW --PROGRESSING Therapy Time Individual Concurrent Group Co-treatment Time In 1329 Time Out 1345 Minutes 16 Timed Code Treatment Minutes: 16 Minutes (Funct--1) EDIE Donovan * Nhi Bolanos PTA - 06/30/2021 1:16 PM EST Physical Therapy Facility/Department: [facility] Daily Treatment Note NAME: Debra Cole : 1940 Date of Service: 06/30/2021 Discharge Recommendations: Subacute/Half-Way Facility PT Equipment Recommendations Equipment Needed: No Assessment Body structures, Functions, Activity limitations: Decreased functional mobility ;Increased pain;Decreased balance;Decreased posture;Decreased ROM;Decreased strength;Decreased safe awareness;Decreasedcognition;Decreased endurance Assessment: Patient at times appearing to waxi and wane with cognition, decreased safety awareness.Bre bed mobility with bed elevated and increased time, Bre x 2 for STS and ambulation. Able to ambulate further this date with max encouragement, demonstrates good understanding of TTWB LLE and good adherence entire session. Unsteady and decreased endurance. Recommend facility- based therapy at discharge. Prognosis: Fair Decision Making: Medium Complexity PT Education: Goals;General Safety;PT Role;Precautions REQUIRES PT FOLLOW UP: Yes Activity Tolerance Activity Tolerance: Patient Tolerated treatment well;Patient limited by pain;Patient limited by endurance Patient Diagnosis(es): The primary encounter diagnosis was Dislocation of left hip, initial encounter ([facility]). A diagnosis of Ulcer of sacral region, unstageable ([facility]) was also pertinent to this visit. has a past medical history of Cerebral artery occlusion with cerebral infarction (HCC), COPD (chronic obstructive pulmonary disease) (HCC), and Hypertension. has a past surgical history that includes Cosmetic surgery; orif femur decompression (Left, 06/08/2021); and fracture surgery. Restrictions Restrictions/Precautions Restrictions/Precautions: Weight Bearing,General Precautions,Fall Risk,Up as Tolerated Required Braces or Orthoses?: No Lower Extremity Weight Bearing Restrictions Left Lower Extremity Weight Bearing: Toe Touch Weight Bearing Position Activity Restriction Other position/activity restrictions: tele, PIV, esparza Subjective General Chart Reviewed: Yes Additional Pertinent Hx: closed fracture of L hip requiring operative repair Response To Previous Treatment: Patient reporting fatigue but able to participate.;Patient with no complaints from previous session. Family / Caregiver Present: No Subjective Subjective: Patient supine in bed upon arrival, agreeable to therapy. Ok'd by RN for therapy. Pain Screening Patient Currently in Pain: Yes Pain Assessment Pain Assessment: 0-10 (Patient didnt rate pain on pain scale.) Vital Signs Patient Currently in Pain: Yes Orientation Orientation Overall Orientation Status: Impaired Orientation Level: Oriented to person;Oriented to place;Oriented to situation Cognition Cognition Overall Cognitive Status: Exceptions Arousal/Alertness: Appropriate responses to stimuli Following Commands: Follows one step commands with repetition;Follows one step commands with increased time Attention Span: Attends with cues to redirect Memory: Decreased detention memory;Decreased short term memory;Decreased recall of recent events;Decreased recall of biographical Information Safety Judgement: Decreased awareness of need for assistance;Decreased awareness of need for safety Insights: Decreased awareness of deficits Initiation: Requires cues for some Sequencing: Requires cues for some Cognition Comment: Cognition and safety awareness waxes and wans throughout session. Cues for safety awareness throughout. Decreased carry over of information given throughout Objective Bed mobility Supine to Sit: Minimal assistance Scooting: Minimal assistance (to scoot towards EOB) Comment: with increased time and effort, HOB elevated, bed rail utilized, VC for proper technique. Assistance with BLE, pad utilized. Transfers Sit to Stand: Minimal Assistance;2 Person Assistance Stand to sit: Minimal Assistance;2 Person Assistance Comment: Patient performed STS x 2, VC for proper technique and maintaining TTWB LLE. Good adherence. Ambulation Ambulation?: Yes More Ambulation?: No Ambulation 1 Surface: level tile Device: Rolling Walker Assistance: Minimal assistance;2 Person assistance Quality of Gait: Good adherence to TTWB LLE, initially ambulation observed unsteadiness and poor technique. Second ambulation after seated break demonstrating improved technique and sequencing with VC. Gait Deviations: Slow Jennifer;Decreased step length;Decreased step height Distance: 8ft x 1, 10ft x 1 Comments: Seated rest break in between, required motivation and encouragment to attempt further ambulation. Unsteady. Stairs/Curb Stairs?: No Balance Comments: often Leans back onto side with sitting EOB at time but no specific LOB just poor tolerance. Able to performed static stands for ~1 minute CGA and maintain TTWB without significant LOB or sway. Exercises Straight Leg Raise: x5 R LE AROM Quad Sets: 2-3 hold x 10 bilat LE's Gluteal Sets: 2-3 hold x 10 bilat LE's Knee Long Arc Quad: x10 bilat LE's AROM Ankle Pumps: and circles x10 bilat LE's Comments: VC for proper technique AM-PAC Score [facility] Inpatient Mobility Raw Score : 11 (06/30/21 152) AM-[facility] Inpatient T-Scale Score : 33.86 (06/30/21 152) Mobility Inpatient CMS 0-100% Score: 72.57 (06/30/21 1523) Mobility Inpatient CMS G-Code Modifier : CL (06/30/211522) Goals Short term goals Time Frame for Short term goals: 2 wks Short term goal 1: independent with all bed mobility- Progressing Short term goal 2: CGA for all transfers- progressing Short term goal 3: Min A ambulation 75' with RW- progressing Short term goal 4: sitting balance >10 min with fair balance- progressing Patient Goals Patient goals : to go home Plan Plan Times per week: 5-7x Plan weeks: 2 wks Current Treatment Recommendations: Strengthening,Home Exercise Program,Safety Education & Training,Balance Training,Endurance Training,Patient/Caregiver Education & Training,Functional Mobility Training,Equipment Evaluation, Education, & procurement,Transfer Training,Gait Training,Positioning Safety Devices Type of devices: All fall risk precautions in place,Call light within reach,Chair alarm in place,Patient at risk for falls,Left in chair,Nurse notified Restraints Initially in place: No Therapy Time Individual Concurrent Group Co-treatment Time In 1316 Time Out 1347 Minutes 31 Timed Code Treatment Minutes: (FA, GT) PPE donned per facility protocol Nhi Bolanos PTA * Beth Bennett MD - 06/30/2021 11:58 AM EST Hospitalist Progress Note 06/29/21 11:58 AM Subjective: Admit Date: 06/26/2021 PCP: Jamie Boateng Interval History: No overnight issues. ADULT DIET; Regular ADULT ORAL NUTRITION SUPPLEMENT; AM Snack, PM Snack; Other Oral Supplement; Lottay Standard 1.4 I/O last 3 completed shifts: In: - Out: 1550 [Urine:1550] No data found. Medications: sodium chloride collagenase Topical Daily trospium 20 mg Oral BID AC propofol 50 mg IntraVENous Once sodium chloride flush 5-40 mL IntraVENous 2 times per day [Held by provider] enoxaparin 40 mg SubCUTAneous Daily [Held by provider] clopidogrel 75 mg Oral Daily levothyroxine 75 mcg Oral Daily lisinopril 20 mg Oral Daily montelukast 10 mg Oral Nightly metoprolol succinate 50 mg Oral Nightly No results for input(s): WBC, HGB, PLT in the last 72 hours. Recent Labs 06/28/21 0030 06/29/21 0500 06/30/21 0151 NA 132* 128* 132* K 4.0 4.2 4.4 CL 105 102 103 CO2 22 26 25 BUN 30* 22* 25* CREATININE 0.69 0.77 0.67 GLUCOSE 80 86 101* No results for input(s): AST, ALT, ALB, BILITOT, ALKPHOS in the last 72 hours. No results found for: TRIG, HDL, LDLCALC, CHOL No results found for: PHART, PO2ART, [id number] No results for input(s): INR in the last 72 hours. No results for input(s): CKTOTAL, CKMB, TROPONINI in the last 72 hours. No results for input(s): DDIMER in the last 72 hours. No components found for: HGBA1C No results found for: TSH Urine Culture: No results found for this or any previous visit. Objective: Vitals: BP 110/61 Pulse 66 Temp 98.1 F (36.7 C) (Temporal) Resp 16 Ht 5' 2 (1.575 m) Wt 85 lb (38.6 kg) SpO2 100% BMI 15.55 kg/m Pulse Ox: SpO2 Av.9 % Min: 84 % Max: 100 % Supplemental O2: O2 Flow Rate (L/min): 2 L/min General appearance: alert and cooperative with exam Lungs: clear to auscultation bilaterally Heart: regular rate and rhythm, S1, S2 normal, no murmur, click, rub or gallop Abdomen: soft, non-tender; bowel sounds normal; no masses, no organomegaly Extremities: extremities normal, atraumatic, no cyanosis or edema dislocated left hip Neurologic: No obvious focal neurologic deficits. 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 for discharge plan to long term facility -am labs -increase activity 06/30 Patient feeling better pain is better controlled denies any shortness of breath nausea constipationor diarrhea no acute events overnight Vital signs stable Continue the current medical management Continue PT OT Discharge plan to long term facility in progress Case discussed with nursing staff Advance Directive: Full Code Discharge planning: SNF 07/01 BETH BENNETT MD, MD [facility] Hospitalist * Amalia Wells, PT - 06/29/2021 3:42 PM EST Physical Therapy Facility/Department: [facility] Daily Treatment Note NAME: Debra Cole : 1940 Date of Service: 06/29/2021 Discharge Recommendations: Subacute/Half-Way Facility PT Equipment Recommendations Equipment Needed: No Assessment Body structures, Functions, Activity limitations: Decreased functional mobility ;Increased pain;Decreased balance;Decreased posture;Decreased ROM;Decreased strength;Decreased safe awareness;Decreasedcognition;Decreased endurance Assessment: Pt continues to be limited d/t dementia with decreased attention and safety awareness, along with chronically dislocated L hip. Even with leg length discrepancy from chronic superior dislocation, pt has good awareness of compliance with TTWB L LE while lowering herself in FWW. Mod x 1-2for transfers and hopping 3 steps over to chair in FWW. Highly unsafe to return to home. Will need facility-based therapy at disch. Prognosis: Fair Decision Making: Medium Complexity PT Education: Goals;General Safety;PT Role;Precautions REQUIRES PT FOLLOW UP: Yes Patient Diagnosis(es): The primary encounter diagnosis was Dislocation of left hip, initial encounter ([facility]). A diagnosis of Ulcer of sacral region, unstageable ([facility]) was also pertinent to this visit. has a past medical history of Cerebral artery occlusion with cerebral infarction ([facility]), COPD (chronic obstructive pulmonary disease) ([facility]), and Hypertension. has a past surgical history that includes Cosmetic surgery; orif femur decompression (Left, 06/08/2021); and fracture surgery. Restrictions Restrictions/Precautions Restrictions/Precautions: Weight Bearing,General Precautions,Fall Risk,Up as Tolerated Required Braces or Orthoses?: No Lower Extremity Weight Bearing Restrictions Left Lower Extremity Weight Bearing: Toe Touch Weight Bearing Position Activity Restriction Other position/activity restrictions: tele, PIV, esparza Subjective General Chart Reviewed: Yes Additional Pertinent Hx: closed fracture of L hip requiring operative repair Response To Previous Treatment: Patient reporting fatigue but able to participate. Family / Caregiver Present: No Subjective Subjective: RN OK with PT to see pt. Per TCC, pt is now agreeable to facility- placement. Pt in bed and agreeable to PT. Orientation Orientation Overall Orientation Status: Within Functional Limits Orientation Level: Oriented to person;Oriented to place;Oriented to situation (Waxes and wans throughout session) Cognition Cognition Following Commands: Follows one step commands with repetition;Follows one step commands with increased time Memory: Decreased detention memory;Decreased short term memory;Decreased recall of recent events;Decreased recall of biographical Information Safety Judgement: Decreased awareness of need for assistance;Decreased awareness of need for safety Insights: Decreased awareness of deficits Initiation: Requires cues for some Sequencing: Requires cues for some Cognition Comment: Cognition and safety awareness waxes and wans throughout session. Cues for safety awareness throughout. Decreased carry over of information given throughout Objective Bed mobility Supine to Sit: Moderate assistance Scooting: Moderate assistance Comment: Increased time to complete with HOB slightly elevated and use of bed rails. Transfers Sit to Stand: Moderate Assistance;2 Person Assistance Stand to sit: Moderate Assistance Comment: STS completed x 1 Ambulation Ambulation?: Yes More Ambulation?: No Ambulation 1 Surface: level tile Device: Rolling Walker Assistance: Moderate assistance;2 Person assistance Quality of Gait: Good recall of TTWB. D/t leg length discrepancy with dislocated hip, pt lowers self slightly with use of arms for TTWB L LE for Hopping R LE. Minimal foot clearance throughout of R LE Gait Deviations: Slow Jennifer;Decreased step length;Decreased step height Distance: 3' bed > chair Stairs/Curb Stairs?: No Balance Sitting - Static: Fair Sitting - Dynamic: Fair;- Standing - Static: Poor Standing - Dynamic: Poor Comments: Leans back onto side with sitting EOB >2 mins at a time. Mod x 1 for static standing balance in FWW, but Mod x2 for hopping to chair 3 ft Exercises Straight Leg Raise: x5 R LE AROM Quad Sets: 2-3 hold x 10 bilat LE's Gluteal Sets: 2-3 hold x 10 bilat LE's Knee Long Arc Quad: x10 bilat LE's AROM Ankle Pumps: and circles x10 bilat LE's Comments: Increased time to complete d/t fatigue and pt easily distracted requiring constant cues to stay on task G-Code OutComes Score [facility] Score [facility] Inpatient Mobility Raw Score : 8 (06/29/21 1508) [facility] Inpatient T-Scale Score : 28.52 (06/29/21 1508) Mobility Inpatient CMS 0-100% Score: 86.62 (06/29/21 1508) Mobility Inpatient [facility] G-Code Modifier : CM (06/29/21 1508) Goals Short term goals Time Frame for Short term goals: 2 wks Short term goal 1: independent with all bed mobility- Progressing Short term goal 2: CGA for all transfers- Slowly progressing Short term goal 3: Min A ambulation 75' with RW- Slowly progressing Short term goal 4: sitting balance >10 min with fair balance- Slowly progressing Patient Goals Patient goals : to go home Plan Plan Times per week: 5-7x Plan weeks: 2 wks Current Treatment Recommendations: Strengthening,Home Exercise Program,Safety Education & Training,Balance Training,Endurance Training,Patient/Caregiver Education & Training,Functional Mobility Training,Equipment Evaluation, Education, & procurement,Transfer Training,Gait Training,Positioning Safety Devices Type of devices: All fall risk precautions in place,Call light within reach,Chair alarm in place,Patient at risk for falls,Left in chair,Nurse notified Restraints Initially in place: No Therapy Time Individual Concurrent Group Co-treatment Time In 1348 Time Out 1414 Minutes 26 Timed Code Treatment Minutes: 26 Minutes (x1 Gait, x1 TP) Patient s Physical Therapy Plan of Care supervision is transferred to [facility] Rehab Department Physical Therapist. PT wore surgical mask, goggles, and gloves throughout entire session with patient. Amalia Wells PT * Latoya Love PA-C - 06/29/2021 2:20 PM EST Images from the original note were not included. [facility] [address] [place] [address] Dept: [phone] Loc: [phone] Orthopedic Progress Note Name: Debra Cole Date:06/29/2021 Attending:Sumit Monroe MD Subjective CHIEF COMPLAINT: left recurrent hemiarthroplasty dislocation with failed closed reduction in the emergency department and in the operating room on 06/26/2021 HPI: Patient doing well and denies fever, chills, or feelings of malaise. She reports the pain in the left hip is minimal at this time. The patient reports that she has been eating well and has no new areas of pain. Patient denies any concerns or questions at this time regarding her treatment plan. Objective PAST MEDICAL HISTORY Diagnosis Date Cerebral artery occlusion with cerebral infarction (HCC) COPD (chronic obstructive pulmonary disease) (HCC) Hypertension PAST SURGICAL HISTORY Procedure Laterality Date COSMETIC SURGERY breast implants FRACTURE SURGERY left hip ORIF FEMUR DECOMPRESSION Left 06/08/2021 HOME MEDICATIONS Prior to Admission medications Medication Sig Start Date End Date Taking? Authorizing Provider ferrous sulfate (IRON 325) 325 (65 Fe) MG tablet Take 1 tablet by mouth 2 times daily (with meals) 06/29/21 Yes Beth Bennett MD oxyCODONE (ROXICODONE) 5 MG immediate release tablet Take 1 tablet by mouth every 4 hours as neededfor Pain for up to 3 days. 06/29/21 07/02/21 Yes Beth Bennett MD LORazepam (ATIVAN) 0.5 MG tablet Take 1 tablet by mouth every 8 hours as needed for Anxiety for up to 30 days. 06/17/21 07/17/21 Yes Jamie Roper MD oxybutynin (DITROPAN) 5 MG tablet Take 5 mg by mouth daily Yes Historical Provider, metoprolol succinate (TOPROL XL) 50 MG extended release tablet Take 50 mg by mouth daily Yes Historical Provider, lisinopril (PRINIVIL;ZESTRIL) 20 MG tablet Take 20 mg by mouth daily Yes Historical Provider, clopidogrel (PLAVIX) 75 MG tablet Take 75 mg by mouth daily Yes Historical Provider, montelukast (SINGULAIR) 10 MG tablet Take 10 mg by mouth nightly Yes Historical Provider, levothyroxine (SYNTHROID) 75 MCG tablet Take 75 mcg by mouth Daily Yes Historical Provider, CURRENT HOSPITAL MEDICATIONS Current Facility-Administered Medications: trospium (SANCTURA) tablet 20 mg, 20 mg, Oral, BID AC, Jonelle Guzman MD, 20 mg at 06/29/21 0854 propofol injection 50 mg, 50 mg, IntraVENous, Once, Lawrence Hollins MD sodium chloride flush 0.9 % injection 5-40 mL, 5-40 mL, IntraVENous, 2 times per day, Lawrence Hollins MD, 10 mL at 06/26/21 2226 sodium chloride flush 0.9 % injection 5-40 mL, 5-40 mL, IntraVENous, PRN, Lawrence Hollins MD 0.9 % sodium chloride infusion, 25 mL, IntraVENous, PRN, Lawrence Hollins MD ondansetron (ZOFRAN-ODT) disintegrating tablet 4 mg, 4 mg, Oral, Q8H PRN OR ondansetron (ZOFRAN) injection 4 mg, 4 mg, IntraVENous, Q6H PRN, Lawrence Hollins MD polyethylene glycol (GLYCOLAX) packet 17 g, 17 g, Oral, Daily PRN, Lawrence Hollins MD, 17 g at 06/27/21 1506 0.9 % sodium chloride infusion, , IntraVENous, Continuous, Lawrence Hollins MD, Last Rate: 75 mL/hr at 06/29/21 0032, New Bag at 06/29/21 0032 acetaminophen (TYLENOL) tablet 650 mg, 650 mg, Oral, Q4H PRN, Lawrence Hollins MD traMADol (ULTRAM) tablet 50 mg, 50 mg, Oral, Q6H PRN, Lawrence Hollins MD [Held by provider] enoxaparin (LOVENOX) injection 40 mg, 40 mg, SubCUTAneous, Daily, Lawrence Hollins MD [Held by provider] clopidogrel (PLAVIX) tablet 75 mg, 75 mg, Oral, Daily, Jonelle Guzman MD levothyroxine (SYNTHROID) tablet 75 mcg, 75 mcg, Oral, Daily, Jonelle Guzman MD, 75 mcg at 06/29/21 0854 lisinopril (PRINIVIL;ZESTRIL) tablet 20 mg, 20 mg, Oral, Daily, Jonelle Guzman MD, 20 mg at 06/29/21 08 LORazepam (ATIVAN) tablet 0.5 mg, 0.5 mg, Oral, Q8H PRN, Jonelle Guzman MD, 0.5 mg at 06/28/212101 montelukast (SINGULAIR) tablet 10 mg, 10 mg, Oral, Nightly, Jonelle Guzman MD, 10 mg at 06/28/212101 acetaminophen (TYLENOL) tablet 1,000 mg, 1,000 mg, Oral, Q6H PRN, Jonelle Guzman MD oxyCODONE (ROXICODONE) immediate release tablet 5 mg, 5 mg, Oral, Q4H PRN, 5 mg at 06/28/21 1359 OR oxyCODONE (ROXICODONE) immediate release tablet 10 mg, 10 mg, Oral, Q4H PRN, Jonelle Guzman MD, 10 mg at 06/29/21 0853 metoprolol succinate (TOPROL XL) extended release tablet 50 mg, 50 mg, Oral, Nightly, Jonelle Guzman MD, 50 mg at 06/28/212101 ALLERGIES: Demerol hcl [meperidine] SOCIAL HISTORY: Social History Socioeconomic History Marital status: Spouse name: Not on file Number of children: Not on file Years of education: Not on file Highest education level: Not on file Occupational History Not on file Tobacco Use Smoking status: Former Smoker Smokeless tobacco: Current User Vaping Use Vaping Use: Some days Substance and Sexual Activity Alcohol use: Not on file Drug use: Not on file Sexual activity: Not on file Other Topics Concern Not on file Social History Narrative Not on file Social Determinants of Health Financial Resource Strain: Difficulty of Paying Living Expenses: Not on file Food Insecurity: Worried About Running Out of Food in the Last Year: Not on file Ran Out of Food in the Last Year: Not on file Transportation Needs: Lack of Transportation (Medical): Not on file Lack of Transportation (Non-Medical): Not on file Physical Activity: Days of Exercise per Week: Not on file Minutes of Exercise per Session: Not on file Stress: Feeling of Stress : Not on file Social Connections: Frequency of Communication with Friends and Family: Not on file Frequency of Social Gatherings with Friends and Family: Not on file Attends [employer] Services: Not on file Active Member of Clubs or Organizations: Not on file Attends Club or Organization Meetings: Not on file Marital Status: Not on file Intimate Partner Violence: Fear of Current or Ex-Partner: Not on file Emotionally Abused: Not on file Physically Abused: Not on file Sexually Abused: Not on file Housing Stability: Unable to Pay for Housing in the Last Year: Not on file Number of Places Lived in the Last Year: Not on file Unstable Housing in the Last Year: Not on file FAMILY HISTORY: History reviewed. No pertinent family history. Further Family History is noncontributory to this injury. REVIEW OF SYSTEMS: Review of Systems - General ROS: negative for - chills, fatigue, fever, malaise or night sweats Psychological ROS: negative Ophthalmic ROS: negative ENT ROS: negative for - headaches or sore throat Hematological and Lymphatic ROS: negative for - bleeding problems or blood clots Respiratory ROS: no cough, shortness of breath, or wheezing Cardiovascular ROS: no chest pain or dyspnea on exertion Gastrointestinal ROS: negative Musculoskeletal ROS: See HPI Neurological ROS: negative for - bowel and bladder control changes, gait disturbance or numbness/tingling All other systems reviewed and are negative VITALS: Vitals: 06/29/21 0456 06/29/21 0939 06/29/21 1229 06/29/21 1303 BP: (!) 140/80 (!) 153/76 122/70 Pulse: 63 62 70 Resp: 16 18 16 Temp: 97.6 F (36.4 C) 99.6 F (37.6 C) 99.7 F (37.6 C) TempSrc: Temporal Temporal Temporal SpO2: 96% 100% 97% Weight: Height: 5' 2 (1.575 m) PHYSICAL EXAM: GENERAL: Patient is well developed/well nourished in NAD. MOOD AND AFFECT: Calm appropriate to situation GAIT AND STATION: Patient is in bed COORDINATION and BALANCE: Patient is grossly coordinated LYMPHADENOPATHY: none on examination of the affected extremity(s) LLE INSPECTION DRESSING: Clean/Dry/Intact. NEUROLOGICAL: SILT intact to Saphenous/Superficial Peroneal/Deep Peroneal/Tibial/Sural distributions MOTOR: +Dorsiflexion/Plantarflexion/Great toe extension VASCULAR: Palpable dorsalis pedis pulse. Capillary refill to all 5 lower extremity digits was briskand all digits were warm to touch. LABS: CBC: Lab Results Component Value Date WBC 7.4 06/27/2021 RBC 2.70 06/27/2021 BMP: Lab Results Component Value Date GLUCOSE 86 06/29/2021 CO2 26 06/29/2021 BUN 22 06/29/2021 CREATININE 0.77 06/29/2021 CALCIUM 7.9 06/29/2021 PT/INR: Lab Results Component Value Date INR 1.1 06/27/2021 APTT 27.6 06/27/2021 Type and Screen: Lab Results Component Value Date LABABO O 06/26/2021 RH NEG 06/26/2021 LABANTI POS 06/26/2021 CRP: No results found for: CRP ESR: No results found for: SEDRATE HgBA1c: No results found for: LABA1C The above labs were reviewed by me. Assessment Debra is a 81 y.o.female with left recurrent hemiarthroplasty dislocation with failed closed reduction in the emergency department and in the operating room on 06/26/2021 Plan -No plan to return to OR -Given the fact that she is very comfortable and has displayed no evidence of acute pain, orthopedic surgery to leave her hip chronically dislocated and will continue nonoperative care. - Should she demonstrate pain, given her low demand status and dementia, would recommend a Girdlestone procedure with removal of the proximal body of the hemiarthroplasty rather than a complex reconstruction which would likely have a high rate of dislocation as well. -Okay to discontinue knee immobilizer -TDWB LLE for transfers, up with assistance -Dressing: Change dressing for any saturation PRN -Ice -PT/OT -Medical management, pain control, dvt prophylaxis per primary -Patient was scheduled a follow up appointment for 07/07/2021 at 9:45 AM for x- ray and at 10:20 AM for her appointment with Dr. Catherine. She was advised to arrive 15 minutes prior to scheduled appointment and to bring with her photo ID and insurance card. -Upon discharge, plan is for patient to be discharged to home with home care per most recent ocular care technologist note. -Ortho to follow peripherally for staple removal evaluation 07/01 * Beth Bennett MD - 06/29/2021 11:53 AM EST Hospitalist Progress Note 06/29/21 11:53 AM Subjective: Admit Date: 06/26/2021 PCP: Jamie Boateng Interval History: No overnight issues. ADULT DIET; Regular ADULT ORAL NUTRITION SUPPLEMENT; AM Snack, PM Snack; Other Oral Supplement; Lottay Standard 1.4 I/O last 3 completed shifts: In: - Out: 1550 [Urine:1550] No data found. Medications: sodium chloride collagenase Topical Daily trospium 20 mg Oral BID AC propofol 50 mg IntraVENous Once sodium chloride flush 5-40 mL IntraVENous 2 times per day [Held by provider] enoxaparin 40 mg SubCUTAneous Daily [Held by provider] clopidogrel 75 mg Oral Daily levothyroxine 75 mcg Oral Daily lisinopril 20 mg Oral Daily montelukast 10 mg Oral Nightly metoprolol succinate 50 mg Oral Nightly No results for input(s): WBC, HGB, PLT in the last 72 hours. Recent Labs 06/28/21 0030 06/29/21 0500 06/30/21 0151 NA 132* 128* 132* K 4.0 4.2 4.4 CL 105 102 103 CO2 22 26 25 BUN 30* 22* 25* CREATININE 0.69 0.77 0.67 GLUCOSE 80 86 101* No results for input(s): AST, ALT, ALB, BILITOT, ALKPHOS in the last 72 hours. No results found for: TRIG, HDL, LDLCALC, CHOL No results found for: PHART, PO2ART, [id number] No results for input(s): INR in the last 72 hours. No results for input(s): CKTOTAL, CKMB, TROPONINI in the last 72 hours. No results for input(s): DDIMER in the last 72 hours. No components found for: HGBA1C No results found for: TSH Urine Culture: No results found for this or any previous visit. Objective: Vitals: BP 110/61 Pulse 66 Temp 98.1 F (36.7 C) (Temporal) Resp 16 Ht 5' 2 (1.575 m) Wt 85 lb (38.6 kg) SpO2 100% BMI 15.55 kg/m Pulse Ox: SpO2 Av.9 % Min: 84 % Max: 100 % Supplemental O2: O2 Flow Rate (L/min): 2 L/min General appearance: alert and cooperative with exam Lungs: clear to auscultation bilaterally Heart: regular rate and rhythm, S1, S2 normal, no murmur, click, rub or gallop Abdomen: soft, non-tender; bowel sounds normal; no masses, no organomegaly Extremities: extremities normal, atraumatic, no cyanosis or edema dislocated left hip Neurologic: No obvious focal neurologic deficits. 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 1. Continue regular diet and encourage >75% intake of meals as able. 2. Per MNT protocol, initiate [employer] 1.4 (455 KCAL, 20 g PRO per 325 mL) BID due to chronic poor po intake, decreased appetite, and weight loss. 3. Please record % PO intake of meals and ONS in flow-sheet. 4. Please obtain daily weights. 5. RD monitor nutrition status including weights, intakes, labs, GI status, fluid status, skin integrity, and follow-up weekly. Nutrition Assessment: PMHX of HTN, cerebral artery occlusion with cerebral infarction, COPD. Presented to ED 06/26 from [facility] for left hip dislocation/fracture. Recent hip replacement performed at [facility] in mid-May. Index surgery for fracture of her mentasta hip was 06/08. Her first dislocation e vent was 06/15 while still inpatient. Reports persistent pain in left hip since replacement. Pt poorhistorian, but stated that she has been unable to walk since Espinoza s Day. Pt taken to OR by orthopedic surgery for failed closed reduction of left hemiarthroplasty dislocation 06/26. 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 As of 06/28, no overnight events. Upon initial visit with RD agribusiness internship 06/29, pt stated thatkrystinae has had ongoing chronic weight loss and decreased appetite since her 's suicide in 2018.Pt has had difficulty eating at all over the past month due to trouble with ambulation. She reportsnot getting much help at home from son or [id number]. Pt reported a sensitivity to gluten and dairy that gives her GI upset along with abdominal tenderness and distension. Pt was interested in trying an oral nutrition supplement while she is here as long as it doesn't contain dairy. Pt consumed all of yogurt for breakfast but did not drink milk. Additionally, pt with hx of severe malnutritin diagnosed 06/13/21. Malnutrition Assessment: Malnutrition Status: Severe malnutrition Context: Chronic Illness (cachexia) Findings of the 6 clinical characteristics of malnutrition: Energy Intake: 7 - 75% or less estimated energy requirements for 1 month or longer (pt unable to ambulate since early May, making it difficult to eat. Poor historian at baseline.) Weight Loss: Unable to assess (weight loss has been a chronic on-going issue for many years per pt.Prior to beginning of weight loss, she weighed ~125#. Now she stated that her weight typically falls in the 80s.) Body Fat Loss: 7 - Severe body fat loss Buccal region,Triceps,Orbital Muscle Mass Loss: 7 - Severe muscle mass loss Clavicles (pectoralis & deltoids),Temples (temporalis),Hand (interosseous) Fluid Accumulation: 7 - Severe (+2 pitting edema BLE) Extremities Knapsack Sprayer Strength: Not Performed Estimated Daily Nutrient Needs: Energy (kcal): 7816-6618 kcal/day (28-32 kcal/kg); Weight Used for Energy Requirements: Admission (38.6 kg) Protein (g): 46-58 g/day (1.2-1.5 g/kg); Weight Used for Protein Requirements: Admission Fluid (ml/day): per MD; Method Used for Fluid Requirements: Nutrition Related Findings: Adalberto: 14. Edema: +2 pitting BUE. GI: +BS. I&O: (- ). Meds: synthroid, singulair, sanctura, ativan, glycolax. Labs: Na (128), BUN (22), Ca (7.9). Wounds: Multiple,Surgical Incision (surgical incision anterior left proximal hip; pretibial left blisters) Current Nutrition Therapies: ADULT DIET; Regular Anthropometric Measures: Height: 5' 2 (157.5 cm) Current Body Weight: 112 lb (50.8 kg) (obtained by RD agribusiness internship via bed scale 06/29; question accuracy of this weight) Admission Body Weight: 85 lb (38.6 kg) (stated 06/26) Usual Body Weight: 88 lb (39.9 kg) (06/05/20) [place] Body Weight: 110 lbs; % [place] Body Weight 101.8 % BMI: 20.5 BMI Categories: Underweight (BMI less than 22) age over 65 Nutrition Diagnosis: Severe malnutrition,In context of chronic illness related to inadequate protein- energy intake as evidenced by severe loss of subcutaneous fat,severe muscle loss,poor intake prior to admission,localized or generalized fluid accumulation Underweight related to inadequate protein-energy intake as evidenced by BMI Nutrition Interventions: Food and/or Nutrient Delivery: Continue Current Diet,Start Oral Nutrition Supplement Nutrition Education/Counseling: No recommendation at this time Coordination of Nutrition Care: Continue to monitor while inpatient Goals: Pt to consume >75% meals and ONS. Nutrition Monitoring and Evaluation: Behavioral-Environmental Outcomes: None Identified Food/Nutrient Intake Outcomes: Food and Nutrient Intake,Supplement Intake Physical Signs/Symptoms Outcomes: Biochemical Data,Nutrition Focused Physical Findings,Skin,Weight,GI Status,Fluid Status or Edema Discharge Planning: Continue Oral Nutrition Supplement Contact: *[phone] * Tabby Hudson DTR - 06/28/2021 1:56 PM EST Nutrition rescreen completed. Patient referred to the Dietitian. * Ramon Pickens MD - 06/28/2021 12:41 PM EST Images from the original note were not included. Hospitalist Progress Note 06/28/2021 12:41 PM Subjective: Admit Date: 06/26/2021 PCP: Jamie Boateng Interval History: resting comfortably in bed, thinking about DC to home vs SNF in [place]. No overnight issues. Denies chest pain, sob, abdominal pain, nausea, vomiting, diarrhea, constipation, fevers, or chills. ADULT DIET; Regular Date 06/28/21 0000 - 06/28/21 2359 Shift [id number] [id number] 8468-6913 24 Hour Total INTAKE Shift Total(mL/kg) OUTPUT Urine(mL/kg/hr) 475(1.5) 475 Shift Total(mL/kg) 475(12.3) 475(12.3) Weight (kg) 38.6 38.6 38.6 38.6 Patient Vitals for the past 96 hrs (Last 3 readings): Weight 06/26/21 0510 85 lb (38.6 kg) Medications: sodium chloride sodium chloride 75 mL/hr at 06/28/21 0518 trospium 20 mg Oral BID AC propofol 50 mg IntraVENous Once sodium chloride flush 5-40 mL IntraVENous 2 times per day [Held by provider] enoxaparin 40 mg SubCUTAneous Daily [Held by provider] clopidogrel 75 mg Oral Daily ferrous sulfate 325 mg Oral BID WC levothyroxine 75 mcg Oral Daily lisinopril 20 mg Oral Daily montelukast 10 mg Oral Nightly metoprolol succinate 50 mg Oral Nightly Recent Labs 06/27/21 0510 WBC 7.4 HGB 8.4* PLT 673* Recent Labs 06/27/21 0024 06/28/21 0030 NA 130* 132* K 3.5 4.0 CL 101 105 CO2 27 22 BUN 26* 30* CREATININE 0.67 0.69 GLUCOSE 94 80 No results for input(s): AST, ALT, ALB, BILITOT, ALKPHOS in the last 72 hours. No results found for: TRIG, HDL, LDLCALC, CHOL Recent Labs 06/26/21 0936 06/27/21 0510 INR 1.1 1.1 No results for input(s): CKTOTAL, CKMB, TROPONINI in the last 72 hours. Objective: Vitals: BP (!) 154/76 Pulse 62 Temp 99.2 F (37.3 C) (Temporal) Resp 16 Ht 5' 2 (1.575 m) Wt 85 lb (38.6 kg) SpO2 92% BMI 15.55 kg/m Pulse Ox: SpO2 Av.3 % Min: 87 % Max: 98 % Supplemental O2: O2 Flow Rate (L/min): 2 L/min PHYSICAL EXAM: Physical Exam Constitutional: General: She is not in acute distress. HENT: Nose: Nose normal. Mouth/Throat: Pharynx: Oropharynx is clear. Eyes: Extraocular Movements: Extraocular movements intact. Cardiovascular: Rate and Rhythm: Normal rate. Pulses: Normal pulses. Pulmonary: Effort: Pulmonary effort is normal. Abdominal: General: Abdomen is flat. Palpations: Abdomen is soft. Skin: General: Skin is warm. Capillary Refill: Capillary refill takes less than 2 seconds. Neurological: General: No focal deficit present. Mental Status: She is alert. DATA: CBC: Recent Labs 06/27/21 0510 WBC 7.4 RBC 2.70* HGB 8.4* HCT 26.0* MCV 96.1 RDW 20.5* PLT 673* BMP: Recent Labs 06/27/21 0024 06/28/21 0030 NA 130* 132* K 3.5 4.0 CL 101 105 CO2 27 22 BUN 26* 30* CREATININE 0.67 0.69 GLUCOSE 94 80 CALCIUM 8.1* 8.0* ANIONGAP 2* 5 LIVER PROFILE:No results for input(s): AST, ALT, BILITOT, ALKPHOS, LABALBU, PROT in the last 72 hours. PT/INR: Recent Labs 06/26/21 0936 06/27/21 0510 PROTIME 11.9 11.3 INR 1.1 1.1 CARDIAC ENZYMES: No results for input(s): TROPONINI in the last 72 hours. Procalcitonin: No results found for: PROCAL Urine Culture: No results found for this or any previous visit. I reviewed: [x] laboratory results [x] radiographic results At the time of today's encounter. Pt was advised of the results. Assessment Active Problems: Hip dislocation, left (HCC) Resolved Problems: * No resolved hospital problems. * #L recurrent hip dislocation: non-operative mgmt at this time; PT/OT rec SNF. #COPD #HTN Plan Ortho consulted; unable to reduce hip at this time. Therapies and DC planning. Dispo: thinking about DC to home vs SNF in [place]. Ortho recs: I left a voicemail with the patient's son regarding our inability to close reduce the hip. Dr. Hollins, our chief resident, then had a conversation with him later and discussed our inability to reduce herhip. 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 Should she demonstrate pain, given her low demand status and dementia I would recommend a Girdlestone procedure with removal of the proximal body of the hemiarthroplasty rather than a complex reconstruction which would likely have a high rate of dislocation as well. Patient's son agreeable to that plan. See orders, continue POC Advance Directive: Full Code PPE was worn for the duration of the encounter including but not limited to a N95. Ramon Pickens MD, [facility] Hospitalist * Iyv Taylor RN - 06/27/2021 5:[address] Pickens messaged about urine output of 250cc for shift. IV fluids infusing per orders and fluids encouraged. NO new orders at this time. * Ramon Pickens MD - 06/27/2021 2:56 PM EST Images from the original note were not included. Hospitalist Progress Note 06/27/2021 2:56 PM Subjective: Admit Date: 06/26/2021 PCP: Jamie Boateng Interval History: resting comfortably in chair, pleasant. NAD. No overnight issues. Denies chest pain, sob, abdominal pain, nausea, vomiting, diarrhea, constipation, fevers, or chills. ADULT DIET; Regular Date 06/27/21 0000 - 06/27/21 2359 Shift [id number] 4948-2940 6853-2584 24 Hour Total INTAKE P.O.(mL/kg/hr) 325(1.1) 325 Shift Total(mL/kg) 325(8.4) 325(8.4) OUTPUT Urine(mL/kg/hr) 925(3) 925 Shift Total(mL/kg) 925(24) 925(24) Weight (kg) 38.6 38.6 38.6 38.6 Patient Vitals for the past 96 hrs (Last 3 readings): Weight 06/26/21 0510 85 lb (38.6 kg) Medications: sodium chloride sodium chloride 75 mL/hr at 06/26/21 1727 trospium 20 mg Oral BID AC propofol 50 mg IntraVENous Once sodium chloride flush 5-40 mL IntraVENous 2 times per day [Held by provider] enoxaparin 40 mg SubCUTAneous Daily [Held by provider] clopidogrel 75 mg Oral Daily ferrous sulfate 325 mg Oral BID WC levothyroxine 75 mcg Oral Daily lisinopril 20 mg Oral Daily montelukast 10 mg Oral Nightly metoprolol succinate 50 mg Oral Nightly Recent Labs 06/27/21 0510 WBC 7.4 HGB 8.4* PLT 673* Recent Labs 06/27/21 0024 NA 130* K 3.5 CL 101 CO2 27 BUN 26* CREATININE 0.67 GLUCOSE 94 No results for input(s): AST, ALT, ALB, BILITOT, ALKPHOS in the last 72 hours. No results found for: TRIG, HDL, LDLCALC, CHOL Recent Labs 06/26/21 0936 06/27/21 0510 INR 1.1 1.1 No results for input(s): CKTOTAL, CKMB, TROPONINI in the last 72 hours. Objective: Vitals: BP (!) 149/74 Pulse 72 Temp 97.2 F (36.2 C) (Temporal) Resp 16 Ht 5' 2 (1.575 m) Wt 85 lb (38.6 kg) SpO2 (!) 87% BMI 15.55 kg/m Pulse Ox: SpO2 Av % Min: 87 % Max: 100 % Supplemental O2: O2 Flow Rate (L/min): 2 L/min PHYSICAL EXAM: Physical Exam Constitutional: General: She is not in acute distress. HENT: Nose: Nose normal. Mouth/Throat: Pharynx: Oropharynx is clear. Eyes: Extraocular Movements: Extraocular movements intact. Cardiovascular: Rate and Rhythm: Normal rate. Pulses: Normal pulses. Pulmonary: Effort: Pulmonary effort is normal. Abdominal: General: Abdomen is flat. Palpations: Abdomen is soft. Skin: General: Skin is warm. Capillary Refill: Capillary refill takes less than 2 seconds. Neurological: General: No focal deficit present. Mental Status: She is alert. DATA: CBC: Recent Labs 06/27/21 0510 WBC 7.4 RBC 2.70* HGB 8.4* HCT 26.0* MCV 96.1 RDW 20.5* PLT 673* BMP: Recent Labs 06/27/21 0024 NA 130* K 3.5 CL 101 CO2 27 BUN 26* CREATININE 0.67 GLUCOSE 94 CALCIUM 8.1* ANIONGAP 2* LIVER PROFILE:No results for input(s): AST, ALT, BILITOT, ALKPHOS, LABALBU, PROT in the last 72 hours. PT/INR: Recent Labs 06/26/21 0936 06/27/21 0510 PROTIME 11.9 11.3 INR 1.1 1.1 CARDIAC ENZYMES: No results for input(s): TROPONINI in the last 72 hours. Procalcitonin: No results found for: PROCAL Urine Culture: No results found for this or any previous visit. I reviewed: [x] laboratory results [x] radiographic results At the time of today's encounter. Pt was advised of the results. Assessment Active Problems: Hip dislocation, left (HCC) Resolved Problems: * No resolved hospital problems. * #L recurrent hip dislocation: non-operative mgmt at this time; PT/OT rec SNF. #COPD #HTN Plan Ortho consulted; unable to reduce hip at this time. Therapies and DC planning. Dispo: TBD Ortho recs: I left a voicemail with the patient's son regarding our inability to close reduce the hip. Dr. Hollins, our chief resident, then had a conversation with him later and discussed our inability to reduce herhip. 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 Should she demonstrate pain, given her low demand status and dementia I would recommend a Girdlestone procedure with removal of the proximal body of the hemiarthroplasty rather than a complex reconstruction which would likely have a high rate of dislocation as well. Patient's son agreeable to that plan. See orders, continue POC Advance Directive: Full Code PPE was worn for the duration of the encounter including but not limited to a N95. Ramon Pickens MD, [facility] * Jasmyn Ochoa, OT - 06/27/2021 10:50 AM EST Occupational Therapy Occupational Therapy Initial Assessment Date: 06/27/2021 Patient Name: Debra Cole : 1940 Date of Service: 06/27/2021 Discharge Recommendations: Subacute/Half-Way Facility This provider wore a mask and gloves during the treatment session. Assessment Performance deficits / Impairments: Decreased functional mobility ;Decreased safe awareness;Decreased balance;Decreased ADL status;Decreased cognition;Decreased endurance;Decreased high-level IADLs Assessment: OT eval completed, pt presents with performance deficits listed above. Pt admitted withdislocation of L hip; currently below baseline for ADLs and transfers. Pt mod A x2 person for standpivot transfer with cues for safety, dependent for LE dressing and dependent for toileting. Pt requiring increased need for assistance with ADLs and mobility, and is unable to complete their daily routine. Recommend SNF. Prognosis: Fair Decision Making: Medium Complexity OT Education: OT Role;Plan of Care;Precautions;ADL Adaptive Strategies;Transfer Training REQUIRES OT FOLLOW UP: Yes Activity Tolerance Activity Tolerance: Patient Tolerated treatment well Safety Devices Safety Devices in place: Yes Type of devices: All fall risk precautions in place;Patient at risk for falls;Call light within reach;Left in chair;Chair alarm in place;Nurse notified Patient Diagnosis(es): The encounter diagnosis was Dislocation of left hip, initial encounter (HCC). has a past medical history of Cerebral artery occlusion with cerebral infarction (HCC), COPD (chronic obstructive pulmonary disease) (HCC), and Hypertension. has a past surgical history that includes Cosmetic surgery; orif femur decompression (Left, 06/08/2021); and fracture surgery. Restrictions Restrictions/Precautions Restrictions/Precautions: Weight Bearing,General Precautions,Fall Risk,Up as Tolerated Required Braces or Orthoses?: No Lower Extremity Weight Bearing Restrictions Left Lower Extremity Weight Bearing: Toe Touch Weight Bearing Position Activity Restriction Other position/activity restrictions: tele, PIV, esparza Subjective General Chart Reviewed: Yes Patient assessed for rehabilitation services?: Yes Family / Caregiver Present: No Diagnosis: dislocation of L hip Subjective Subjective: pt supine in bed upon entry, agreeable to therapy; RN ok'd for therapy Patient Currently in Pain: Yes Pain Assessment Pain Assessment: 0-10 Pain Level: 5 Patient's Stated Pain Goal: No pain Pain Type: Acute pain Pain Location: Hip Pain Orientation: Left Pain Descriptors: Aching;Constant Pain Frequency: Continuous Pre Treatment Pain Screening Intervention List: Nurse/Physician notified Vital Signs Temp: 97.2 F (36.2 C) Temp Source: Temporal Pulse: 72 Heart Rate Source: Monitor Resp: 16 BP: (!) 149/74 BP Location: Left Arm MAP (mmHg): 99 Patient Position: Sitting Patient Currently in Pain: Yes Oxygen Therapy SpO2: (!) 87 % O2 Device: None (Room air) Social/Functional History Social/Functional History Additional Comments: Pt presents as poor historian. Per pt, from home with son and independent withall mobility and ADLs. Per chart and nursing, pt admitted from SNF. Objective Vision: (pt reports having glasses but does not wear them) Hearing: Within functional limits Orientation Overall Orientation Status: Within Functional Limits Observation/Palpation Posture: Fair Balance Sitting Balance: Minimal assistance Standing Balance: Moderate assistance ADL LE Dressing: Dependent/Total Toileting: Dependent/Total Tone RUE RUE Tone: Normotonic Tone LUE LUE Tone: Normotonic Coordination Movements Are Fluid And Coordinated: Yes Bed mobility Supine to Sit: Maximum assistance Scooting: Maximal assistance;2 Person assistance Transfers Stand Pivot Transfers: Moderate assistance;2 Person assistance Sit to stand: Minimal assistance Stand to sit: 2 Person assistance;Moderate assistance Transfer Comments: tx: completed sit<>stand from EOB min A, dependent for luther- care in standing as pt noted to be soiled in bed and using bilat UE on FWW to assist with balance. After completion of luther-care completed stand pivot transfer initially with min A, however pt quickly needing mod Ax2 person assist to safely complete transfer. Pt also attempting to sit prior to fully reaching thechair requiring cues for safety. Cognition Overall Cognitive Status: Exceptions Arousal/Alertness: Appropriate responses to stimuli Following Commands: Follows one step commands consistently;Follows one step commands with increasedtime;Follows one step commands with repetition Attention Span: Attends with cues to redirect Memory: Decreased detention memory;Decreased short term memory;Decreased recall of recent events;Decreased recall of biographical Information Safety Judgement: Decreased awareness of need for assistance;Decreased awareness of need for safety Insights: Decreased awareness of deficits Initiation: Requires cues for some Sequencing: Requires cues for some Cognition Comment: At times pt presents as cognitively intact, then pt will make a comment that does not make much sense. Sensation Overall Sensation Status: WFL LUE AROM (degrees) LUE AROM : WFL RUE AROM (degrees) RUE AROM : WFL Plan Plan Times per week: 3-5 Plan weeks: 4 Current Treatment Recommendations: Strengthening,Pain Management,Safety Education & Training,Balance Training,Patient/Caregiver Education & Training,Self-Care / ADL,Cognitive/Perceptual Training,Functional Mobility Training,Endurance Training,Equipment Evaluation, Education, & procurement G-Code OutComes Score AM-PAC Daily Activity Inpatient How much help for putting on and taking off regular lower body clothing?: Total How much help for Bathing?: A Lot How much help for Toileting?: Total How much help for putting on and taking off regular upper body clothing?: A Little How much help for taking care of personal grooming?: A Little How much help for eating meals?: None AM-[facility] Inpatient Daily Activity Raw Score: 14 AM-[facility] Inpatient ADL T-Scale Score : 33.39 ADL Inpatient CMS 0-100% Score: 59.67 ADL Inpatient CMS G-Code Modifier : CK Goals Short term goals Time Frame for Short term goals: 4 weeks Short term goal 1: Dynamic seated task with good sitting balance Short term goal 2: LE dressing, mod A Short term goal 3: Functional transfer with LRD, CGA Short term goal 4: Toileting, including transfer, CGA Short term goal 5: Demo good safety awareness with use of FWW Patient Goals Patient goals : none stated Therapy Time Individual Concurrent Group Co-treatment Time In 1027 Time Out 1050 Minutes 23 Timed Code Treatment Minutes: 8 Minutes (self care:1) Patient's Occupational Therapy Plan of Care supervision is transferred to [facility] Occupational Therapist. Goals and/or treatment plan was established in collaboration with patient/family/other representatives. Jasmyn Ochoa OTR/L * Courtney Hinton RN - 06/27/2021 3:28 AM EST Pt refused to be repositioned when offered. Attempted again and pt refused once again. * Jonelle Guzman MD - 06/27/2021 12:06 AM EST Patient seen at bedside to clarify patient's reaction to oxycodone. Patient states she takes oxycodone and Vicodin all the time and she has no issues with the oxycodone. She did show me a hemorrhagicbulla in the left upper calf with some erythema of the upper left posterior thigh. She states that she first noticed it this evening. She has some pain on the left posterior upper thigh on palpation and denies seeing this blister/bulla elsewhere. Examination is notable for patient on room air, afebrile, with hemodynamically stable vital signs, lack of blisters or ecchymosis on back, abdomen, chest, face, lack of ulcers in the mouth. No evidence of peeling skin or Nikolsky sign. She does have a small cut on her right dixon about 1-1/2 cm in length. Review of medications: No medications with associations with SJS/TEN. ICU was consulted for evaluation for possible SJS/TEN and questionable DIC. Appreciate ICU input. * Fernando Catherine MD - 06/26/2021 2:04 PM EST I left a voicemail with the patient's son regarding our inability to close reduce the hip. Dr. Hollins, our chief resident, then had a conversation with him later and discussed our inability to reduce herhip. 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 Should she demonstrate pain, given her low demand status and dementia I would recommend a Girdlestone procedure with removal of the proximal body of the hemiarthroplasty rather than a complex reconstruction which would likely have a high rate of dislocation as well. Patient's son agreeable to that plan./ documented in this encounterSUMMA Work Phone: [phone] 778-353903-08-2022 Hospital Discharge instructions* Discharge Instr - RAFAEL* Rodo Mauro RN - 06/30/2021 11:52 AM EST Continuity of Care Form Patient Name: Debra Cole : 1940 Admit date: 07/02/2021 Discharge date: 07/01/2021 Code Status Order: Full Code Advance Directives: Admitting Physician: Sumit Monroe MD PCP: Jamie Boateng Discharging Nurse: Rodo Dwyer Discharging Hospital Unit/Room#: 6128/[id number] Discharging Unit Emergency Contact: Extended Emergency Contact Information Primary Emergency Contact: Any Koch Relation: Child Past Surgical History: Past Surgical History: Procedure Laterality Date COSMETIC SURGERY breast implants FRACTURE SURGERY left hip ORIF FEMUR DECOMPRESSION Left 06/08/2021 Immunization History: There is no immunization history on file for this patient. Active Problems: Patient Active Problem List Diagnosis Code Closed fracture of left hip requiring operative repair ([facility]) S72.002A Severe malnutrition ([facility]) E43 Hip dislocation, left (HCC) S73.005A Isolation/Infection: Isolation No Isolation Patient Infection Status Infection Onset Added Last Indicated Last Indicated By Review Planned Expiration Resolved Resolved By None active Resolved COVID-19 (Rule Out) 06/15/21 06/17/21 POCT COVID-19, Antigen (Ordered) 06/17/21 Rule-Out Test Resulted 06/15/21 - Awaiting discharge to post-acute care Nurse Assessment: Last Vital Signs: BP 110/61 Pulse 66 Temp 98.1 F (36.7 C) (Temporal) Resp 16 Ht 5' 2 (1.575 m) Wt 85 lb (38.6 kg) SpO2 100% BMI 15.55 kg/m Last documented pain score (0-10 scale): Pain Level: 7 Last Weight: Wt Readings from Last 1 Encounters: 06/26/21 85 lb (38.6 kg) Mental Status: oriented IV Access: - None Nursing Mobility/ADLs: Walking Dependent Transfer Dependent Bathing Dependent Dressing Dependent Toileting Assisted Feeding Assisted Assistant Manager Quality Management Assisted Med Delivery whole Wound Care Documentation and Therapy: Wound 06/26/21 Pretibial Left;Right Blisters that are oozing (Active) Dressing Status New dressing applied 06/30/21939 Wound Cleansed Cleansed with saline 06/28/211999 Dressing/Treatment ABD;Gauze dressing/dressing sponge;Non adherent 06/30/21939 Drainage Amount Moderate 06/30/2140 Drainage Description Serous;Yellow 06/30/21 0940 Number of days: 3 Wound 06/25/21 Sacrum (Active) Wound Etiology Pressure Unstageable 06/30/21839 Dressing Status Intact 06/29/212048 Wound Cleansed Cleansed with saline 06/30/21939 Dressing/Treatment Alginate;Foam;Pharmaceutical agent (see MAR) 06/30/21 09 Wound Assessment Granulation tissue;[place]/red;Slough 06/30/21 0940 Drainage Amount Small 06/30/2140 Drainage Description Serous 06/29/212048 Number of days: 5 Elimination: Continence: Bowel: No Bladder: No Urinary Catheter: None Colostomy/Ileostomy/Ileal Conduit: No Date of Last BM: 06/29/2021 No intake or output data in the 24 hours ending 06/30/21 1138 I/O last 3 completed shifts: In: - Out: 1550 [Urine:1550] Safety Concerns: History of Falls (last 30 days) and At Risk for Falls Impairments/Disabilities: None Nutrition Therapy: Current Nutrition Therapy: - Oral Diet: General Routes of Feeding: Oral Liquids: No Restrictions Daily Fluid Restriction: no Last Modified Barium Swallow with Video (Video Swallowing Test): not done Treatments at the Time of Hospital Discharge: Respiratory Treatments: N/A Oxygen Therapy: is not on home oxygen therapy. Ventilator: - No ventilator support Rehab Therapies: Physical Therapy and Occupational Therapy Weight Bearing Status/Restrictions: Partial weight bearing (30-50%) only on leg left leg Other Medical Equipment (for information only, NOT a DME order): wheelchair, walker, and bedside commode Other Treatments: N/A Patient's personal belongings (please select all that are sent with patient): None RN SIGNATURE: CASE MANAGEMENT/SOCIAL WORK SECTION Inpatient Status Date: 06/26/2021 Readmission Risk Assessment Score: Readmission Risk Risk of Unplanned Readmission: 15 Discharging to Facility/ Agency Name: [facility] Address: [address] [place] [address] Dialysis Facility (if applicable) Name: Address: Dialysis Schedule: Phone: Fax: Web Design Intern/Telephone Station Repairer signature: PHYSICIAN SECTION Prognosis: {Prognosis:[id number]} Condition at Discharge: Stable Rehab Potential (if transferring to Rehab): Fair Recommended Labs or Other Treatments After Discharge: none Physician Certification: I certify the above information and transfer of Debra Cole is necessary for the continuing treatment of the diagnosis listed and that she requires [facility] for less 30 days. Update Admission H&P: No change in H&P PHYSICIAN SIGNATURE: * Additional Instructions* Conner Wills MD - 06/26/2021 General Orthopedic Discharge Instructions The following instructions have been prepared to help you when you leave the hospital. These guidelines are for the post-surgery period. Activity: Ease into normal activity as tolerated. Medications: see medication instructions. Please be sure to read and understand the information provided by your pharmacy. Ask your Pharmacist if any questions. Wound Care and Hygiene: -Wash hands before touching or changing dressings -Do Not touch incision -Changes dressing daily for saturation. If incision is dry, it is okay to leave open to air -It is okay to shower and let water run over incision. Do not bath with incision. Replace dry dressing after hygiene Call Your Doctor for: -Excessive bleeding/swelling of incision -Fever with temperature above 100 oF Anesthesia Precautions: -Do Not operate any vehicle (automobile, bicycle, motorcycle) or power tools for 24 hours -Do Not drink alcoholic beverages for 24 hours -As precaution to prevent post-operative nausea and vomiting, start your diet with liquids, then progress to light foods. If tolerated, resume normal diet. Additional Instructions: -Touch down weight bearing left lower extremity for transfer Contact your surgeon's office (Dr Catherine), to set up an appointment in 2 weeks, or if you have any problems or questions. documented in this encounterSUMMA Work Phone: 1(584) 923-461703-07-2022 Hospital course Narrative* Beth Bennett MD - 06/29/2021 11:25 AM EST Hospitalist Discharge Summary Debra Cole : 1940 Admit date: 06/26/2021 Discharge date: 06/29/2021 Admitting Physician: Sumit Monroe MD Primary Care Physician: Jamie Boateng Discharge Diagnoses: #L recurrent hip dislocation #COPD #HTN Chronic respiratory failure on home oxygen 3 L/min Anemia of chronic disease Hospital Course: Improved. Debra is a 81 y.o. female with past medical history significant for L hip Fx and dislocation who presents to [facility] with a CC of L hip pain. They described it to me as was reported by the ER: Debra Cole is a 81 y.o. female who presents to the emergency department with a left hip dislocation/fracture. Patient was transferred from [facility] for left hip fracture/dislocation, recent hip replacement performed at our facility in mid May. Patient get admitted evaluated by surgery recommended conservative medical treatment Continue narcotics as needed Patient did not want to be evaluated for long term facility would rather go home On discharge day patient alert oriented x3 vital signs stable ADULT DIET; Regular Vitals: BP (!) 140/80 Pulse 63 Temp 97.6 F (36.4 C) (Temporal) Resp 16 Ht 5' 2 (1.575 m) Wt 85 lb (38.6 kg) SpO2 96% BMI 15.55 kg/m Pulse Ox: SpO2 Av.6 % Min: 92 % Max: 100 % Supplemental O2: O2 Flow Rate (L/min): 2 L/min General appearance: alert and cooperative with exam Lungs: clear to auscultation bilaterally Heart: regular rate and rhythm, S1, S2 normal, no murmur, click, rub or gallop Abdomen: soft, non-tender; bowel sounds normal; no masses, no organomegaly Extremities: extremities normal, atraumatic, no cyanosis or edema dislocated left hip Neurologic: No obvious focal neurologic deficits. Recent Labs 06/27/21 0510 WBC 7.4 HGB 8.4* PLT 673* Recent Labs 06/27/21 0024 06/28/21 0030 06/29/21 0500 NA 130* 132* 128* K 3.5 4.0 4.2 CL 101 105 102 CO2 27 22 26 BUN 26* 30* 22* CREATININE 0.67 0.69 0.77 GLUCOSE 94 80 86 No results for input(s): AST, ALT, ALB, BILITOT, ALKPHOS in the last 72 hours. No results found for: TRIG, HDL, LDLCALC, CHOL No results found for: PHART, PO2ART, IAF0QMO Recent Labs 06/27/21 0510 INR 1.1 No results for input(s): DDIMER in the last 72 hours. No components found for: HGBA1C No results found for: TSH Urine Culture: No results found for this or any previous visit. Significant Diagnostic Studies: XR HIP LEFT (2-3 VIEWS) Result Date: 06/26/2021 Patient Name: DEBRA COLE Diagnostic Radiology ACCESSION EXAM DATE/TIME PROCEDURE ORDERING PROVIDER [id number] 06/26/2021 09:28 EST CR Hip w/ Pelvis 2 or 3 [id number] POLY KEVIN Views Left n CPT code 24229 Reason For Exam (CR Hip w/ Pelvis 2 or 3 Views Left n) hip reduction Report PELVIS AND LEFT HIP: CLINICAL INDICATION: Left hip reduction. TECHNIQUE: AP pelvis plus AP and lateral views of the left hip COMPARISON: Radiograph from earlier today FINDINGS:Redemonstration of postsurgical changes in the left hip. A superior left hip dislocation is again seen. A left acetabular fracture is again seen. Report Dictated on --- Final --- Dictated: 06/26/2021 10:10 am Dictating Physician: MD KOLB NICHOLAS Signed Date and Time: 06/26/2021 10:11 am Signed by: MD KOLB NICHOLAS Transcribed Date and Time: 06/26/2021 10:10 XR HIP LEFT (2-3 VIEWS) Result Date: 06/26/2021 [id number]iology ACCESSION EXAM DATE/TIME PROCEDURE ORDERING PROVIDER [id number] 06/26/2021 06:28 EST CR Hip w/ Pelvis 2 or 3 [id number] SmoothGLENN, Views Left n DEANNE CPT code 94736 Reason For Exam (CR Hip w/ Pelvis 2 or 3 Views Left n) dislocation Report LEFT HIP: CLINICAL INDICATION: Left hip pain. 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 TECHNIQUE: AP Pelvis, AP and frog leg lateral views of the left hip were obtained. COMPARISON: 06/15/2021. FINDINGS: Left femoral head prosthesis is superiorly displaced and is positioned lateral to the left iliac wing. There is no loosening of the femoral stem. There are multiple displaced bone fragments in the left hip joint, likely arising from the left acetabulum. Left femoral head and stem prosthesis is maintained by cerclage wire along the proximal left femur. There is no evidence for fracture or dislocation. Normal bone density is demineralized. No other bonyor soft tissue abnormality is identified. Esparza catheter balloon overlies the urinary bladder. Mildaortoiliac vascular calcifications. IMPRESSION: Acute, prosthetic left hip dislocation. Left acetabular fracture with displaced bone fragments. Diffuse osteopenia. Report Dictated on --- Final --- Dictated: 06/26/2021 6:56 am Dictating Physician: SUMIT TERRY DO igned Date and Time: 06/26/2021 7:01 am Signed by: SUMIT TERRY DO, I Transcribed Date and Time:06/26/2021 6:56 XR HIP LEFT (2-3 VIEWS) Result Date: 06/15/2021 Patient Name: DEBRA COLE Diagnostic Radiology ACCESSION EXAM DATE/TIME PROCEDURE ORDERING PROVIDER [id number] 06/15/2021 15:57 EST CR Hip w/ Pelvis 2 or 3 MD VIZCARRA BLAKE Views Left n CPT code 87087 Reason For Exam (CR Hip w/ Pelvis 2 or 3 Views Left n) Left Hip Pain Report PELVIS SINGLE VIEW AND LEFT HIP 2 VIEWS CLINICAL INDICATION: Left Hip Pain TECHNIQUE: Single, AP view of the pelvis and 2 views of the left hip obtained on 4021 at 1541 hours. COMPARISON: May,. FINDINGS: Postsurgical change of long stem left total hip arthroplastyagain evident, but now superolaterally dislocated, with ossific fragments projected over the left acetabulum. Surgical skin shama again noted over the lateral hip and Esparza catheter projects over the lower pelvis. Subsequent AP view of pelvis and 2 views of left hip obtained on May, at 1716 hours. This shows the left total hip arthroplasty normally relocated into left acetabulum. Ossific fragment projects anterior to the acetabular component on crosstable lateral view. No other significant interval change. IMPRESSION: 1. Status post left total hip arthroplasty, with initial superolateral dislocation and subsequent reduction. Report Dictated on Workstation: [email or web address] --- Final --- Dictated: 06/15/2021 5:49 pm Dictating Physician: MD YUAN WENDELL Signed Date and Time: 06/15/2021 5:55 pm Signed by: MD YUAN WENDELL Transcribed Date and Time: 06/15/2021 5:49 XR HIP LEFT (2-3 VIEWS) Result Date: 06/15/2021 Patient Name: DEBRA COLE Diagnostic Radiology ACCESSION EXAM DATE/TIME PROCEDURE ORDERING PROVIDER [id number] 06/15/2021 18:09 EST CR Hip w/ Pelvis 2 or 3 MD VIZCARRA BLAKE Views Left n CPT code 49881 Reason For Exam (CR Hip w/ Pelvis 2 or 3 Views Left n) Left Hip Reduction Report PELVIS SINGLE VIEW AND LEFT HIP 2 VIEWS CLINICAL INDICATION: Left Hip Pain TECHNIQUE: Single, AP view of the pelvis and 2 views of the left hip obtained on 4021 at 1541 hours. COMPARISON: May,. 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 Surgical skin shama again noted over the lateral hip and Esparza catheter projects over the lower pelvis. Subsequent AP view of pelvis and 2 views of left hip obtained on May, at 1716 hours. This shows the left total hip arthroplasty normally relocated into left acetabulum. Ossific fragment projects anterior to the acetabular component on crosstable lateral view. No other significant interval change. IMPRESSION: 1. Status post left total hip arthroplasty, with initial superolateral dislocation and subsequent reduction. Report Dictated on Workstation: [email or web address] --- Final --- Dictated: 06/15/2021 5:49 pm Dictating Physician: MD YUAN WENDELL Signed Date and Ti me: 06/15/2021 5:55 pm Signed by: MD YUAN WENDELL Transcribed Date and Time: 06/15/2021 5:49 XR FEMUR LEFT (MIN 2 VIEWS) Result Date: 06/26/2021 Patient Name: DEBRA COLE Diagnostic Radiology ACCESSION EXAM DATE/TIME PROCEDURE ORDERING PROVIDER [id number] 06/26/2021 09:28 EST CR Femur 2+ Views Left n [id number] DOTSON CPT code 87116 Reason For Exam (CR Femur 2+ Views Left n) Hip dislocation Report LEFT FEMUR CLINICAL INDICATION: Dislocation TECHNIQUE: AP and lateral COMPARISON: Hip radiograph from earlier today FINDINGS: Redemonstration of postsurgical changes in the left femur. Surgical shama are present. Redemonstration of superior displacement of the left femoral head prosthesis extending above the left acetabulum. Left acetabular fracture again present. Report Dictated on --- Final --- Dictated: 06/26/2021 9:28 am Dictating Physician: MD KOLB NICHOLAS Signed Date and Time: 06/26/2021 9:29 am Signed by: MD KOLB NICHOLAS Transcribed Date and Time: 06/26/2021 9:28 XR FEMUR LEFT (MIN 2 VIEWS) Result Date: 06/08/2021 Patient Name: DEBRA COLE Diagnostic Radiology ACCESSION EXAM DATE/TIME PROCEDURE ORDERING PROVIDER [id number] 06/08/2021 21:36 EST CR Femur 2+ Views Left n [id number] -JOSI BHATTI CPT code 62436 Reason For Exam (CR Femur 2+ Views Left n) s/p L lyn, please include entire implant, PACU XR Report PELVIS SINGLE VIEW. LEFT FEMUR 2 VIEWS CLINICAL INDICATION: PACU XR, low pelvis XR TECHNIQUE: Single, AP view of the pelvis; 2 views of the left femur. COMPARISON: May,. FINDINGS: Status post placement of longstem left hip arthroplasty transfixing subtrochanteric fracture. Hardware appears grossly intact and fracture fragments in close apposi tion. Distal femur grossly intact. No dislocation. Postsurgical changes in the overlying and surrounding soft tissues. IMPRESSION: 1. Postsurgical change compatible with status post ORIF of left subtrochanteric femoral fracture. Report Dictated on Workstation: [email or web address] --- Final --- Dictated: 06/08/2021 9:02 pm Dictating Physician: MD YUAN WENDELL Signed Date and Time: 06/08/2021 9:05 pm Signed by: MD YUAN WENDELL Transcribed Date and Time: 06/08/2021 9:02 VL LOWER EXTREMITY BILATERAL VENOUS DUPLEX Result Date: 06/14/2021 [facility] Lower Extremity Venous Duplex Report Patient Kelsey, : 1940 Study 06/14/2021 Name: Debra Paz (81yrs) Date: Patient [id number] Age: 81 Account: [id number] ID: Gender: F Loc: 6113Accession: [id number] BP: Ordering Physician: Heri Redd Repairer Veneer Sheet: Jeff Vizcarra RVT Interpreting Physician: Fernando Mccord M.D. Location: [facility] Indications: Edema right calf. Edema left calf. Conclusions 1. There is no evidence of acute deep or superficial venous thrombosis noted in the right lower extremity. 2. There is no evidence of acute deep or superficial venous thrombosis noted in the left lower extremity. 3. Limited study bilateral History: Risk factors: Former tobacco use. Bedrest Age over 75 years. Study data: Complete lower extremity venous duplex evaluation. Grayscale 2D imaging, color Doppler imaging, and spectral Doppler analysis. Location: Vascular laboratory. Procedure: A vascular evaluation was performed with the patient in the supine position. Images were obtained using a [employer] vascular ultrasound machine. Venous flow and imaging: + + + + + +Location +Overall +Properties +Comments + + + + + + +R CFV +Patent +Normal phasicity; + + + + +spontaneous; normal+ + ++ +augmentation; + + + + +compressible + + + + + + + +R saphenofemoral+Patent +Compressible + + +junction + + + + + + + + + +R profunda +Patent +Spontaneous + + +femoral + + + + + + + + + +R FV - prox. +Patent +Compressible +Visualized in + + + + +segments due to + + + + +catheter+ + + + +stabilizer. + + + + + + +R FV - mid +Patent +Normal phasicity; + + + + +spontaneous; normal+ + + + +augmentation; + + + + +compressible + + + + + + + +R FV - distal +Patent +Compressible + + + + + + + +R popliteal +Patent +Normal phasicity; + + + + +spontaneous; normal+ + + + +augmentation; + + + + +compressible + + + + + + + +R gastrocnemius +Patent +Compressible + + +------- ---------+ + + + +R PTV +Patent +Compressible + + + + + + + +R peroneal +Patent +Compressible + + + + + + + +R soleal +Patent +Compressible + + + + + + + +R GSV +Patent +Compressible +Visualized in + + + + +segments due to + + + + +catheter + + + + +stabilizer. + + + + +-- + +L CFV +Patent with +Normal phasicity; +Did not compress + + +color flow and+spontaneous; normal+due to patient + + +Doppler +augmentation +tolerance. + + +imaging + + + + ----+ + + + +L saphenofemoral+Patent +Compressible + + +junction + + + + + + + + + +L profunda +Patent +Spontaneous + + +femoral + + + + + + + + + +L FV - prox. +Patent +Compressible + + + + + + + +L FV - mid +Patent +Normal phasicity; + + + + +spontaneous; normal+ + + + +augmentation; + + + + +compressible + + + + + + + +L FV - distal +Patent +Compressible + + + + + + + +L popliteal +Patent +Normal phasicity; + + + + +spontaneous; normal+ + + + +augmentation; + + + + +compressible + + + + + + + +L gastrocnemius +Patent +Compressible + + + + + + + +L PTV +Patent +Compressible + + +--- + + + + +L peroneal +Patent +Compressible + + + + + + + +L karyn eal +Not visualized+ +Not visualized. + + + + + + +L GSV +Patent +Compressible + + + +--- + + + Prepared and electronically signed by Fernando Mccord M.D. 06/14/2021 17:54 CT LOWER EXTREMITY LEFT WO CONTRAST Result Date: 06/06/2021 Patient Name: DEBRA COLE Computed Tomography ACCESSION EXAMDATE/TIME PROCEDURE ORDERING PROVIDER [id number] 06/06/2021 07:[address] Low Ext w/o Contrast [id number] -NICA KIRBY Left CPT code 38721 Reason For Exam (CT Low Ext w/o Contrast Left) Pre op planning. Need L hip with 1 mm cuts Report Exam Type: CT Low Ext w/o Contrast Left Exam Date and Time: 06/06/2021 7:08 AM EST Indication: Left hip fracture Comparison: None available. Technique: Axial CT imaging of the left hip was obtained without contrast, followed by coronal and sagittal reconstructions. 3D reconstructions were created by the interpreting radiologist on an independent workstation for further fracture evaluation. Findings: There is an acute comminuted apex anterior angulated intertrochanteric fracture with large fracture fragment displaced anteriorly. There is extension of the fracture into the proximal subtrochanteric diaphysis. Hip alignment is otherwise anatomic. No additional fr acture or dislocation is seen. Associated greater trochanteric bursitis. 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 Atherosclerotic vascular calcifications. Esparza catheter in the bladder. Impression: Acute comminuted extremely angled fracture of the proximal left femur involving the intertrochanteric and subtrochantericbone. Report Dictated on --- Final --- Dictated: 06/06/2021 8:56 am Dictating Physician: MD VILLARREAL NEIL Signed Date and Time: 06/06/2021 8:59 am Signed by: MD VILLARREAL NEIL Transcribed Date and Time: 06/06/2021 8:56 XR Chest 1 VW Result Date: 06/26/2021 Patient Name: DEBRA COLE [facility]#: [id number] Diagnostic Radiology ACCESSION EXAM DATE/TIME PROCEDURE ORDERING PROVIDER [id number] 06/26/2021 10:07 EST CR Chest 1 View Frontal [id number] LIN[place]N [place] CPT code 97739 Reason For Exam (CR Chest 1 View Frontal) Pre op Report CHEST: CLINICAL INDICATION: Preoperative evaluation TECHNIQUE: AP portable chest COMPARISON: none FINDINGS: Support devices: EKG leads The heart demonstrates normal size. Calcification of the thoracic aorta is noted. No obvious consolidation or pulmonary edema. Probable left basilar atelectasis but evaluation of the lungs is somewhat limited due to breast implant capsular calcifications. There are coarse interstitial markings likely related to chronic pulmonary disease. There is no sizable pleural effusion. The osseous structures are unremarkable. IMPRESSION: Interstitial changes in the lungs, likely chronic. Possible left basilar atelectasis. Limited study as above. Report Dictated on Workstation: [email or web address] [id number] --- Final --- Dictated: 06/26/2021 10:11 am Dictating Physician: MD KOLB NICHOLAS Signed Date and Time: 06/26/2021 10:12 am Signed by: MD KOLB NICHOLAS Transcribed Date and Time: 06/26/2021 10:11 XR PELVIS (1-2 VW) Result Date: 06/08/2021 Patient Name: DEBRA COLE Diagnostic Radiology ACCESSION EXAM DATE/TIME PROCEDURE ORDERING PROVIDER [id number] 06/08/2021 21:36 EST CR Pelvis 1 or 2 Views [id number] -JOSI BHATTI CPT code 63604 Reason For Exam (CR Pelvis 1 or 2 Views) PACU XR, low pelvis XR Report PELVIS SINGLE VIEW. LEFT FEMUR 2 VIEWS CLINICAL INDICATION: PACU XR, low pelvis XR TECHNIQUE: Single, AP view of the pelvis; 2 views of the left femur. COMPARISON: May,. FINDINGS: Status post placement of longstem left hip arthroplasty transfixing subtrochanteric fracture. Hardware appears grossly intact and fracture fragments in close apposition. Distal femur grossly intact. No dislocation. Postsurgical changes in the overlying and surrounding soft tissues. IMPRESSION: 1. Postsurgical change compatible with status post ORIF of left subtrochanteric femoral fracture. Report Dictated on Workstation: [email or web address] --- Final --- Dictated: 06/08/2021 9:02 pm Dictating Physician: MD YUAN WENDELL Signed Date and Time: 06/08/2021 9:05 pm Signed by: MD YUAN WENDELL Transcribed Date and Time: 06/08/2021 9:02 XR HIP 1 VW W PELVIS LEFT Result Date: 06/06/2021 Patient Name: DEBRA COLE Diagnostic Radiology ACCESSION EXAM DATE/TIME PROCEDURE ORDERING PROVIDER [id number] 06/06/2021 02:02 EST CR Hip w/ Pelvis 1 View [id number] MELENDEZ Left n CPT code 88808 Reason For Exam (CR Hip w/ Pelvis 1 View Left n) traction view, left hip fracture Report PELVIS AND LEFT HIP: CLINICAL INDICATION: Traction view. TECHNIQUE: APpelvis plus AP and lateral views of the left hip COMPARISON: 06/05/2021 FINDINGS: There is a subtrochanteric fracture of the left hip with angulation of the fracture fragments and superolateral displacement of the distal fracture fragment. Alignment is unchanged compared to pretraction radiograph. No dislocation. The sacroiliac joints are normal. No bone lesion is identified. There is no soft tissue abnormality. IMPRESSION: Displaced subtrochanteric fracture of the left hip with unchanged alignment compared to the pretraction radiograph. Report Dictated on --- Final--- Dictated: 06/06/2021 1:48 am Dictating Physician: MD SOMMER KEVIN Signed Date and Time: 06/06/2021 1:51 am Signed by: MD SOMMER KEVIN Transcribed Date and Time: 06/06/2021 1:48 Discharge Medications: Medication List START taking these medications oxyCODONE 5 MG immediate release tablet Commonly known as: ROXICODONE Take 1 tablet by mouth every 4 hours as needed for Pain for up to 3 days. CONTINUE taking these medications clopidogrel 75 MG tablet Commonly known as: PLAVIX ferrous sulfate 325 (65 Fe) MG tablet Commonly known as: IRON 325 Take 1 tablet by mouth 2 times daily (with meals) levothyroxine 75 MCG tablet Commonly known as: SYNTHROID lisinopril 20 MG tablet Commonly known as: PRINIVIL;ZESTRIL LORazepam 0.5 MG tablet Commonly known as: ATIVAN Take 1 tablet by mouth every 8 hours as needed for Anxiety for up to 30 days. metoprolol succinate 50 MG extended release tablet Commonly known as: TOPROL XL montelukast 10 MG tablet Commonly known as: SINGULAIR oxybutynin 5 MG tablet Commonly known as: DITROPAN Where to Get Your Medications You can get these medications from any pharmacy Bring a paper prescription for each of these medications ferrous sulfate 325 (65 Fe) MG tablet Information about where to get these medications is not yet available Ask your nurse or doctor about these medications oxyCODONE 5 MG immediate release tablet Consults: Orthopedics Disposition: Patient discharged in stable condition. Greater than 30 minutes spent discharging the patient and coming up with patient discharge plan. Follow up with Jamie Boateng in 1-2 weeks. Signed: BETH BENNETT MD,MD 06/29/2021, 11:25 AM documented in this [facility] Work Phone: 1(494) 293-951302-23-2022 NoteHospitalist Discharge Summary Debra Cole : 1940 ADMIT DATE: 06/05/2021 DISCHARGE DATE: 06/17/2021 PRIMARY CARE PHYSICIAN: Jamie Boateng CODE STATUS: Full Code DISCHARGE DIAGNOSES: Active Problems: Closed fracture of left hip requiring operative repair (HCC) Severe malnutrition (HCC) Resolved Problems: * No resolved hospital problems. * [facility]: 81 y.o. female who presents with left hip pain s/p ground level fall. She is a transfer from [place] and states that she has had numerous previous hip injuries all of which were never evaluated by an orthopedic surgeon. She states that she was found to have had a femur fracture 10+ years ago but decided to manage this fracture by continuous ambulation until the pain went away. She states that her left leg is now 3 inches shorter than her right and has been this way for over 10 years. ? Was seen by ortho service s/p L FNFx + ipsilateral IT fx with previous femoral neck malunion on 06/08 Her post op course was complicated by a dislocation caused by pt flexing hip despite hip precautions--this was successfully reduced Renal did follow for hyponatremia, which did improve Also noted sig benzo use at home, pt suspected of taking extra in house as well. This will be weaned on BC Plan dc to snf CONSULTANTS: IP CONSULT TO SOCIAL WORK IP CONSULT TO ORTHOPEDIC SURGERY IP CONSULT TO ANESTHESIOLOGY IP CONSULT TO NEPHROLOGY IP CONSULT TO OPHTHALMOLOGY DISCHARGE MEDICATIONS: Medication List START taking these medications enoxaparin 40 MG/0.4ML injection Commonly known as: LOVENOX Inject 0.4 mLs into the skin daily for 10 days Start on 06/22/2021 ferrous sulfate 325 (65 Fe) MG tablet Commonly known as: IRON 325 Take 1 tablet by mouth 2 times daily (with meals) LORazepam 0.5 MG tablet Commonly known as: ATIVAN Take 1 tablet by mouth every 8 hours as needed for Anxiety for up to 30 days. CONTINUE taking these medications clopidogrel 75 MG tablet Commonly known as: PLAVIX levothyroxine 75 MCG tablet Commonly known as: SYNTHROID lisinopril 20 MG tablet Commonly known as: PRINIVIL;ZESTRIL metoprolol succinate 50 MG extended release tablet Commonly known as: TOPROL XL montelukast 10 MG tablet Commonly known as: SINGULAIR oxybutynin 5 MG tablet Commonly known as: DITROPAN STOP taking these medications HYDROcodone-acetaminophen 5-325 MG per tablet Commonly known as: NORCO ASK your doctor about these medications oxyCODONE 5 MG immediate release tablet Commonly known as: ROXICODONE Take 0.5 tablets by mouth every 4 hours as needed for Pain for up to 5 days. Ask about: Should I take this medication? Where to Get Your Medications Information about where to get these medications is not yet available Ask your nurse or doctor about these medications ? enoxaparin 40 MG/0.4ML injection ? ferrous sulfate 325 (65 Fe) MG tablet ? LORazepam 0.5 MG tablet ? oxyCODONE 5 MG immediate release tablet DIET: ADULT ORAL NUTRITION SUPPLEMENT; Lunch, Dinner; Standard High Calorie/High Protein Oral Supplement ADULT DIET; Regular; 1500 ml ACTIVITY: As tolerated RECOMMENDED NEXT STEPS: DISPOSITION: To a non-[facility] facility Follow up with Jamie Boateng as specified on the Discharge Instructions. Discharge time spent greater than 30 minutes SIGNED: Jamie Roper MD 06/17/2021, 2:01 [facility]02-23-2022 History of Present illness Narrative* Jamie Roper MD - 06/17/2021 1:50 PM EST [facility] hospitalist Hospitalist Progress Note 06/17/2021 1:50 PM 7 PM to 7 AM, please contact [facility] hospitalist avionics technician for any needs Subjective: Admit Date: 06/05/2021 PCP: Jamie Boateng Interval History: Pt mostly upset at knee immobilizer in place ADULT ORAL NUTRITION SUPPLEMENT; Lunch, Dinner; Standard High Calorie/High Protein Oral Supplement ADULT DIET; Regular; 1500 ml I/O last 3 completed shifts: In: 3646 [P.O.:1050; I.V.:2596] Out: 1375 [Urine:1375] Date 06/17/21 - 06/17/212358 Shift 4857-3461 4496-7834 3495-1555 24 Hour Total INTAKE P.O.(mL/kg/hr) 50(0.2) 50 I.V.(mL/kg) 2596(65) 2596(65) Shift Total(mL/kg) 2646(66.3) 2646(66.3) OUTPUT Urine(mL/kg/hr) 575(1.8) 575 Shift Total(mL/kg) 575(14.4) 575(14.4) Weight (kg) 39.9 39.9 39.9 39.9 No data found. Medications: sodium chloride ferrous sulfate 325 mg Oral BID WC enoxaparin 40 mg SubCUTAneous Daily erythromycin Right Eye Q4H levothyroxine 75 mcg Oral Daily sodium chloride flush 5-40 mL IntraVENous 2 times per day [Held by provider] clopidogrel 75 mg Oral Daily [Held by provider] lisinopril 20 mg Oral Daily metoprolol succinate 50 mg Oral Daily montelukast 10 mg Oral Nightly lidocaine 2 patch TransDERmal Daily acetaminophen 1,000 mg Oral TID trospium 20 mg Oral Nightly Recent Labs 06/15/21 0009 06/15/21 0009 06/16/21 0120 06/16/21 0335 06/17/21 0305 WBC 8.2 -- 8.8 -- 12.5* HGB 7.3* < > 6.8* 7.3* 7.0* PLT 567* -- 557* -- 679* < > = values in this interval not displayed. Recent Labs 06/15/21 0009 06/16/21 0120 06/17/21 0305 NA 131* 131* 136 K 4.1 3.8 3.9 CL 99 103 109* CO2 27 25 25 BUN 38* 27* 30* CREATININE 0.83 0.60 0.76 GLUCOSE 104* 82 96 No results for input(s): AST, ALT, ALB, BILITOT, ALKPHOS in the last 72 hours. No results found for: TRIG, HDL, LDLCALC, CHOL No results found for: PHART, PO2ART, GBP8EWS No results for input(s): INR in the last 72 hours. No results for input(s): CKTOTAL, CKMB, TROPONINI in the last 72 hours. No results for input(s): DDIMER in the last 72 hours. No components found for: HGBA1C No results found for: TSH Urine Culture: No results found for this or any previous visit. Objective: Vitals: BP (!) 142/77 Pulse 98 Temp 97.2 F (36.2 C) (Temporal) Resp 16 Ht 5' 2 (1.575 m) Wt 88 lb (39.9 kg) SpO2 92% BMI 16.10 kg/m Pulse Ox: SpO2 Av.5 % Min: 92 % Max: 95 % Supplemental O2: O2 Flow Rate (L/min): 2 L/min General appearance: alert and cooperative with exam Lungs: clear to auscultation bilaterally Heart: regular rate and rhythm, S1, S2 normal, no murmur, click, rub or gallop Abdomen: soft, non-tender; bowel sounds normal; no masses, no organomegaly Extremities: extremities normal, atraumatic, no cyanosis. Positive edema bilateral lower extremity.No erythema or tenderness to palpation Neurologic: No obvious focal neurologic deficits. Assessment Left hip fracture S/p mechanical fall Hyponatremia Past Medical History []Expand by Default Diagnosis Date Cerebral artery occlusion with cerebral infarction (HCC) COPD (chronic obstructive pulmonary disease) (HCC) Hypertension PLAN: 06/07: Patient presented after a fall and was found to have left hip fracture. Seen by Ortho and plan for surgery on Thursday 06/08 Continue with DVT prophylaxis with Lovenox, hold this PM Pain control. Pain management following Na 126 -?SIADH due to pain. Cont with PO fluid restriction. Nephrology consulted. Monitor Na level closely and avoid rapid correction. 06/08 Patient is going to the OR today for hip surgery by Ortho Medically Sodium is 129, being followed by broadcast program director. Monitor potassium and renal function Avoid rapid sodium correction Check CBC in the morning 06/09 Patient is doing well. She tolerated her procedure a from yesterday Diet started Sodium is 135 Hemoglobin dropped, will monitor, no signs of bleeding. Likely related to surgery. No new symptoms.Expected postop pain. PT/OT-recommending ECF Ophthalmology evaluated for corneal abrasion, ointment prescribed. Likely ECF soon 06/10 Her hemoglobin dropped but still above 7, she has bleeding at the site of her surgery. Hold Plavix We will resume DVT prophylaxis for now and check CBC in the morning We will monitor in the hospital until her blood counts are stable 06/11 -Her hemoglobin is stable today. No evidence of new bleeding Resume DVT prophylaxis with Lovenox 06/22 Monitor CBC while inpatient and 2 to 3 days after discharge at the facility Clinically ready for discharge at any time 06/12 Hemoglobin remained stable. Awaiting long term facility placement. Family is chosen a facility Patient is medically stable for discharge once facility is arranged She will need to be on DVT prophylaxis, this is ordered. Discussed with patient RN 06/13 Ok to dc if broadcast program director okay with current sodium levels. Doing well otherwise feeling 06/14 1. Will obtain bilateral lower extremity venous duplex to rule out DVT given edema bilateral lower extremity. Less likely but she does have risk factors. Discussed with RN 2. Patient can be discharged to SNF today if above is negative and okay with broadcast program director. Resume current medications otherwise. 06/15 Per PT much weaker today Some concern that pt was flexing hip too much XR ordered Bmp noted today Decrease benzo dose 06/16 Needed reduction of hip last night Pt found to have ativan pills in her bed, pill bottle in purse Was getting ativan from us as well, Noted on high does + narcs at home for her age/ weight Will decrease, and monitor for withdraw Follow Hgb 06/17 Cont supportive care Follow Hgb PRBC if <7 Cont pain control Hopefully snf soon 7 PM to 7 AM, please contact [facility] hospitalist avionics technician for any needs Jamie Roper MD [facility] Hospitalist * Elsa Rojas, INSURANCE SALES SUPERVISOR - 06/17/2021 12:25 PM EST Physical Therapy Facility/Department: [facility] Daily Treatment Note NAME: Debra Cole : 1940 Date of Service: 06/17/2021 Discharge Recommendations: Subacute/Half-Way Facility Assessment Body structures, Functions, Activity limitations: Decreased functional mobility ;Decreased endurance;Decreased strength;Decreased balance;Increased pain;Decreased safe awareness;Decreased cognition;Decreased ROM Assessment: Pt present with the above deficits requiring mod assist for bed mobility and max assistfor transfer. Max assist for adjusting KI. Cues for NWB LLE during transfers and standing. Weaknessand pain very limiting to pt. Needs re-directed at times. Rec SNF upon discharge. REQUIRES PT FOLLOW UP: Yes Activity Tolerance Activity Tolerance: Patient limited by fatigue;Patient limited by pain;Patient limited by cognitivestatus;Patient limited by endurance Patient Diagnosis(es): The encounter diagnosis was Closed fracture of left hip requiring operative repair, initial encounter ([facility]). has a past medical history of Cerebral artery occlusion with cerebral infarction ([facility]), COPD (chronic obstructive pulmonary disease) ([facility]), and Hypertension. has a past surgical history that includes Cosmetic surgery and orif femur decompression (Left, 06/08/2021). Restrictions Restrictions/Precautions Restrictions/Precautions: Fall Risk,Weight Bearing,Surgical Protocols Required Braces or Orthoses?: No Lower Extremity Weight Bearing Restrictions Left Lower Extremity Weight Bearing: Non Weight Bearing Position Activity Restriction Hip Precautions: Posterior hip precautions Other position/activity restrictions: +bed/chair alarm, catheter, 2L/min O2, IV line. Per ortho notes: Patient to remain in the knee immobilizer and abduction pillow at all times while unsupervised.Daily skin checks to be performed each shift. Subjective General Chart Reviewed: Yes Family / Caregiver Present: No Subjective Subjective: Pt in bed, HOB elevated, pt had removed hip ABd pillow and was trying to remove KI. Re-adjusted KI, more comfortable for pt but continues to c/o not being able to bend her knee. General Comment Comments: esparza, IV, posterior hip precautions Pain Screening Patient Currently in Pain: Yes Pain Assessment Pain Assessment: 0-10 Pain Level: 5 Pain Type: Acute pain;Surgical pain Pain Location: Leg;Hip Pain Orientation: Left Objective Bed mobility Supine to Sit: Moderate assistance (assist with trunk elevation and hao LEs) Sit to Supine: Moderate assistance (assist with hao LEs) Scooting: Minimal assistance (seated towards EOB) Comment: HOB elevated, cues for sequencing. Transfers Sit to Stand: Maximum Assistance Stand to sit: Moderate Assistance Comment: x 2 reps from EOB with FWW. Cues for sequencing and to maintain NWB LLE. Balance Comments: sitting at EOB, UE support, increase pain, leans to right, min assist for balance and progress to SBA for short periods. Static standing x 2 reps. 1st trial with FWW, cues for NWB LLE, retrograde balance, fatigues easily, max assist for balance; 2nd trial with FWW, improved balance and upright posture, cues for NWB LLE, mod assist for balance. AM-PAC Score AM-PAC Inpatient Mobility Raw Score : 7 (06/17/211312) AM-PAC Inpatient T-Scale Score : 26.42 (06/17/211312) Mobility Inpatient CMS 0-100% Score: 92.36 (06/17/211312) Mobility Inpatient CMS G-Code Modifier : CM (06/17/211312) Goals Short term goals Time Frame for Short term goals: 2 weeks (updated 06/16/21) Short term goal 1: Pt to perform bed mobility with SBA and NWB L LE following post hip precautions;not met Short term goal 2: Pt to perform sit to stand transfers with min assist x1 following NWB L LE; not met Short term goal 3: Pt to ambulate 15 ft with FWW and NWB L LE; not met Patient Goals Patient goals : to have less pain Plan Plan Times per week: 5-7 Plan weeks: 2 Current Treatment Recommendations: Strengthening,Transfer Training,Endurance Training,Patient/Caregiver Education & Training,Equipment Evaluation, Education, & procurement,Balance Training,Gait Training,Functional Mobility Training,Safety Education & Training,ROM Safety Devices Type of devices: All fall risk precautions in place,Patient at risk for falls,Call light within reach,Gait belt,Left in bed,Bed alarm in place Restraints Initially in place: No Therapy Time Individual Concurrent Group Co-treatment Time In 1148 Time Out 1220 Minutes 32 Timed Code Treatment Minutes: 32 Minutes (fa x 2) Elsa Rojas PTA * James Flood MD - 06/17/2021 10:43 AM EST [facility] Progress Note [facility] Patient: Debra Cole Unit[facility]Bed: [id number] Date of : 1940 Acct: [id number] Admitting Diagnosis: Closed fracture of left hip requiring operative repair, initial encounter ([facility]) [S72.002A] Admit Date: 06/05/2021 Hospital Day: 12 Subjective: Patient is having problems with Hyponatremia No acute events overnight S/p reduced left hip 2.21 AF, Blood Pressure stable UOP appropriate Scr improving No sob, orthopnea, no n/v/d Very emotional. ++ constipation Swelling improved Patient Seen, Chart, Labs, Radiology studies, and Consults reviewed. Objective: BP (!) 142/77 Pulse 98 Temp 97.2 F (36.2 C) (Temporal) Resp 16 Ht 5' 2 (1.575 m) Wt 88 lb (39.9 kg) SpO2 92% BMI 16.10 kg/m Intake/Output Summary (Last 24 hours) at 06/17/2021 1043 Last data filed at 06/17/2021 0631 Gross per 24 hour Intake 3086 ml Output 1075 ml Net 2011 ml Appearance: no acute distress, awake, cachectic frail elderly Eyes: clear conjunctiva, PERRL, pupils normal size ENT: hearing normal, MMM without oral thrush, no erythema or exudate on hard or soft palate, tonguenormal Neck: supple, no LAD, no thyromegaly Respiratory: breathing unlabored, lungs CTA B anteriorly without w/r/r Cardiovascular: tachycardic, without m/g/r, pedal pulses palpable Gastrointestinal: abdomen soft, non-tender, non-distended, normoactive bowel sounds. No masses or hernia. Musculoskeletal: normal digits and nails without cyanosis or clubbing, no edema of BL LE Skin: warm and dry, no rash or wounds Neurologic: CN II-XII intact grossly BL, no myoclonus Psychiatric: alert and oriented to person/place/time, normal mood and range of affect Diet: ADULT ORAL NUTRITION SUPPLEMENT; Lunch, Dinner; Standard High Calorie/High Protein Oral Supplement ADULT DIET; Regular; 1500 ml Medications: ferrous sulfate 325 mg Oral BID WC enoxaparin 40 mg SubCUTAneous Daily erythromycin Right Eye Q4H levothyroxine 75 mcg Oral Daily sodium chloride flush 5-40 mL IntraVENous 2 times per day [Held by provider] clopidogrel 75 mg Oral Daily [Held by provider] lisinopril 20 mg Oral Daily metoprolol succinate 50 mg Oral Daily montelukast 10 mg Oral Nightly lidocaine 2 patch TransDERmal Daily acetaminophen 1,000 mg Oral TID trospium 20 mg Oral Nightly Continuous Infusions: sodium chloride PRN Meds:LORazepam, phenol, sodium chloride flush, sodium chloride, ondansetron OR ondansetron,polyethylene glycol, nicotine polacrilex, oxyCODONE OR oxyCODONE, HYDROmorphone DVT Prophylaxis: Data: CBC: Recent Labs 06/15/21 0009 06/15/21 0009 06/16/21 0120 06/16/21 0335 06/17/21 0305 WBC 8.2 -- 8.8 -- 12.5* RBC 2.44* -- 2.19* -- 2.35* HGB 7.3* < > 6.8* 7.3* 7.0* HCT 22.1* < > 20.3* 22.2* 22.3* MCV 90.7 -- 92.9 -- 94.7 RDW 18.8* -- 18.7* -- 19.2* PLT 567* -- 557* -- 679* < > = values in this interval not displayed. BMP: Recent Labs 06/15/21 0009 06/16/21 0120 06/17/21 0305 NA 131* 131* 136 K 4.1 3.8 3.9 CL 99 103 109* CO2 27 25 25 BUN 38* 27* 30* CREATININE 0.83 0.60 0.76 BNP: No results for input(s): BNP in the last 72 hours. PT/INR: No results for input(s): PROTIME, INR in the last 72 hours. APTT: No results for input(s): APTT in the last 72 hours. CARDIAC ENZYMES: No results for input(s): CKMB, CKMBINDEX, TROPONINT in the last 72 hours. Invalid input(s): CKTOTAL;3 FASTING LIPID PANEL:No results found for: CHOL, HDL, TRIG LIVER PROFILE: No results for input(s): AST, ALT, ALB, BILIDIR, BILITOT, ALKPHOS in the last 72 hours. ABGs: No results found for: PH, PCO2, PO2, HCO3, O2SAT Assessment/Plan: Debra J Kelsey 81 y.o. year old female who we are seeing in consultation for hyponatremia. 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 intake +/- intravascular volume depletion #Hypertension #Left hip fracture #History of stroke #COPD not in acute exacerbation Plan/ - Sodium stable, uop improved, BP stable - Volume status: euvolemic. Will stop IVF - Urine studies consistent with SIADH, suspect related to discomfort/pain needs good analgesic control to diminish ADH drive. - Noted potassium of 3.8 suspect higher potassium intake. Will monitor - Strict I's and O's - Encourage oral intake, especially protein intake for solute load (protein shakes/magic cups) - Okay to continue free water restriction to 1.5 L daily - Rest of management per primary team - From renal stand point ok to transition to next level of care as long as sodium > 130. Thank you for asking us to participate in the management of your patient, please do not hesitate tocontact us for any concerns regarding my recommendations as outlined above. Please do no hesitate to call with any questions Pager [phone] * Amalia Wells, PT - 06/16/2021 3:47 PM EST Physical Therapy Facility/Department: [facility] Re-Evaluation NAME: Debra Cole : 1940 Date of Service: 06/16/2021 Discharge Recommendations: Subacute/Half-Way Facility PT Equipment Recommendations Equipment Needed: No Assessment Body structures, Functions, Activity limitations: Decreased functional mobility ;Decreased endurance;Decreased strength;Decreased balance;Increased pain;Decreased safe awareness;Decreased cognition;Decreased ROM Assessment: PT Re-Eval d/t L hip dislocation with reduction, now NWB L LE. Pt with poor compliance to hip precautions and NWB L LE throughout session, unsafe to ambulate this visit. AxO x 2. Pt is athigh risk for falls. Recommend SNF at disch. Prognosis: Fair Decision Making: Medium Complexity PT Education: Goals;PT Role;Plan of Care;General Safety;Precautions;Weight- bearing Education Patient Education: NWB L LE (decreased carry over throughout session) REQUIRES PT FOLLOW UP: Yes Activity Tolerance Activity Tolerance: Patient limited by fatigue;Patient limited by pain;Patient limited by cognitivestatus;Patient limited by endurance Patient Diagnosis(es): The encounter diagnosis was Closed fracture of left hip requiring operative repair, initial encounter ([facility]). has a past medical history of Cerebral artery occlusion with cerebral infarction ([facility]), COPD (chronic obstructive pulmonary disease) ([facility]), and Hypertension. has a past surgical history that includes Cosmetic surgery and orif femur decompression (Left, 06/08/2021). Restrictions Restrictions/Precautions Restrictions/Precautions: Fall Risk,Weight Bearing,Surgical Protocols Required Braces or Orthoses?: No Lower Extremity Weight Bearing Restrictions Left Lower Extremity Weight Bearing: Non Weight Bearing Position Activity Restriction Hip Precautions: Posterior hip precautions Other position/activity restrictions: +bed/chair alarm, catheter, 2L/min O2, IV line. Per ortho notes: Patient to remain in the knee immobilizer and abduction pillow at all times while unsupervised.Daily skin checks to be performed each shift. Subjective General Chart Reviewed: Yes Family / Caregiver Present: No Subjective Subjective: Pt leaning over bed rail playing with phone on rolling stool in room. Pt in bed and agreeable to PT, but states We can't make this long, I have company coming soon. Does not recall surgery or dislocation with reduction. Unable to recall NWB with multiple cues. 1/3 hip precautions, sort of (I cant bend over to grab things from the ground) Orientation Orientation Overall Orientation Status: Impaired Orientation Level: Oriented to person;Oriented to place;Disoriented to situation;Disoriented to time (Unable to tell more than Tuesday. Unable to recall surgery, dislocation, and reduction) Cognition Cognition Overall Cognitive Status: Exceptions Following Commands: Follows one step commands with increased time;Follows one step commands with repetition Attention Span: Attends with cues to redirect Memory: Decreased short term memory;Decreased recall of recent events;Decreased recall of precautions Safety Judgement: Decreased awareness of need for assistance;Decreased awareness of need for safety Problem Solving: Assistance required to generate solutions;Assistance required to identify errors made Initiation: Requires cues for all Sequencing: Requires cues for some Cognition Comment: 1/3 post hip precautions (I cant bend over to grab things from the ground). Unable to recall NWB L LE following reduction Objective Bed mobility Supine to Sit: Minimal assistance Sit to Supine: Moderate assistance;2 Person assistance Scooting: Contact guard assistance Comment: Cues throughout for following post hip precautions and NWB L LE. 2 assist to return to bedfor following hip precautions and d/t decreased initiation from pt. Transfers Sit to Stand: Moderate Assistance;2 Person Assistance Stand to sit: Moderate Assistance;2 Person Assistance Comment: 2 assist required for safe transfer: x 1 assist for transfer itself, and x1 assist for ensuring NWB L LE (RN held foot). Ambulation Ambulation?: No WB Status: NWB L LE Ambulation 1 Comments: Pt unable to hop on R LE for ensuring NWB L LE in FWW. Returned to bed Balance Sitting - Static: Good Sitting - Dynamic: Good;- Standing - Static: Poor Comments: Support for L LE at times sitting EOB d/t tendency for L LE to IR. Unable to perform transfer to hop RLE for ensuring NWB L LE Exercises Knee Long Arc Quad: x 10 reps each Ankle Pumps: x 10 reps each AROM LLE (degrees) LLE General AROM: within hip precautions, painful. Pt tends to IR at rest supine and seated. Strength RLE Strength RLE: WFL Comment: grossly 3+/5 Strength LLE Comment: grossly 3/5, painful within available range Other Activities: Re-evaluation performed Comment: RE-Eval d/t L hip dislocation with reduction, now NWB L LE G-Code OutComes Score -[facility] Score AM-[facility] Inpatient Mobility Raw Score : 6 (06/16/211532) AM-[facility] Inpatient T-Scale Score : 23.55 (06/16/211532) Mobility Inpatient CMS 0-100% Score: 100 (06/16/211532) Mobility Inpatient CMS G-Code Modifier : CN (06/16/211532) Goals Short term goals Time Frame for Short term goals: 2 weeks (updated 06/16/21) Short term goal 1: Pt to perform bed mobility with SBA and NWB L LE following post hip precautions Short term goal 2: Pt to perform sit to stand transfers with min assist x1 following NWB L LE Short term goal 3: Pt to ambulate 15 ft with FWW and NWB L LE Patient Goals Patient goals : to have less pain Plan Plan Times per week: 5-7 Plan weeks: 2 Current Treatment Recommendations: Strengthening,Transfer Training,Endurance Training,Patient/Caregiver Education & Training,Equipment Evaluation, Education, & procurement,Balance Training,Gait Training,Functional Mobility Training,Safety Education & Training,ROM Safety Devices Type of devices: All fall risk precautions in place,Patient at risk for falls,Call light within reach,Gait belt,Nurse notified,Left in bed,Bed alarm in place (RN in throughout session. Pt left on bedpan d/t initially stating urgency for bowel movement. RN reported she would return in 5 mins) Restraints Initially in place: No Therapy Time Individual Concurrent Group Co-treatment Time In 1407 Time Out 1428 Minutes 21 Patient s Physical Therapy Plan of Care supervision is transferred to [facility] Rehab Department Physical Therapist. PT wore surgical mask, goggles, and gloves throughout entire session with patient. Amalia Wells PT * Jamie Roper MD - 06/16/2021 12:42 PM EST [facility] hospitalist Hospitalist Progress Note 06/16/2021 12:43 PM 7 PM to 7 AM, please contact [facility] hospitalist avionics technician for any needs Subjective: Admit Date: 06/05/2021 PCP: Jamie Boateng Interval History: No overnight issues. Noted to have significant edema bilateral lower extremity. She is not on IV hydration for multiple days. She is being treated with fluid restriction for SIADH/hyponatremia. ADULT DIET; Regular ADULT ORAL NUTRITION SUPPLEMENT; Lunch, Dinner; Standard High Calorie/High Protein Oral Supplement I/O last 3 completed shifts: In: 682 [P.O.:500; I.V.:182] Out: 1250 [Urine:1250] Date 06/16/21 0000 - 06/16/21 2359 Shift 8010-4413 0692-3899 1647-1938 24 Hour Total INTAKE P.O.(mL/kg/hr) 200(0.6) 360 560 Shift Total(mL/kg) 200(5) 360(9) 560(14) OUTPUT Urine(mL/kg/hr) 300(0.9) 300 Shift Total(mL/kg) 300(7.5) 300(7.5) Weight (kg) 39.9 39.9 39.9 39.9 No data found. Medications: sodium chloride 75 mL/hr at 06/16/21 0839 sodium chloride ferrous sulfate 325 mg Oral BID WC enoxaparin 40 mg SubCUTAneous Daily erythromycin Right Eye Q4H levothyroxine 75 mcg Oral Daily sodium chloride flush 5-40 mL IntraVENous 2 times per day [Held by provider] clopidogrel 75 mg Oral Daily [Held by provider] lisinopril 20 mg Oral Daily metoprolol succinate 50 mg Oral Daily montelukast 10 mg Oral Nightly lidocaine 2 patch TransDERmal Daily acetaminophen 1,000 mg Oral TID trospium 20 mg Oral Nightly Recent Labs 06/14/21806/14/21 00006/15/21 00006/16/21 0120 06/16/21 0335 WBC 7.0 -- 8.2 8.8 -- HGB 7.2* < > 7.3* 6.8* 7.3* PLT 517* -- 567* 557* -- < > = values in this interval not displayed. Recent Labs 06/14/21806/15/21806/16/21 012 NA 129* 131* 131* K 4.4 4.1 3.8 CL 99 99 103 CO2 29 27 25 BUN 27* 38* 27* CREATININE 0.74 0.83 0.60 GLUCOSE 92 104* 82 No results for input(s): AST, ALT, ALB, BILITOT, ALKPHOS in the last 72 hours. No results found for: TRIG, HDL, LDLCALC, CHOL No results found for: PHART, PO2ART, [id number] No results for input(s): INR in the last 72 hours. No results for input(s): CKTOTAL, CKMB, TROPONINI in the last 72 hours. No results for input(s): DDIMER in the last 72 hours. No components found for: HGBA1C No results found for: TSH Urine Culture: No results found for this or any previous visit. Objective: Vitals: BP (!) 92/48 Pulse 70 Temp 98.4 F (36.9 C) (Temporal) Resp 19 Ht 5' 2 (1.575 m) Wt 88 lb (39.9 kg) SpO2 100% BMI 16.10 kg/m Pulse Ox: SpO2 Av.8 % Min: 93 % Max: 100 % Supplemental O2: O2 Flow Rate (L/min): 2 L/min General appearance: alert and cooperative with exam Lungs: clear to auscultation bilaterally Heart: regular rate and rhythm, S1, S2 normal, no murmur, click, rub or gallop Abdomen: soft, non-tender; bowel sounds normal; no masses, no organomegaly Extremities: extremities normal, atraumatic, no cyanosis. Positive edema bilateral lower extremity.No erythema or tenderness to palpation Neurologic: No obvious focal neurologic deficits. Assessment Left hip fracture S/p mechanical fall Hyponatremia Past Medical History []Expand by Default Diagnosis Date Cerebral artery occlusion with cerebral infarction (HCC) COPD (chronic obstructive pulmonary disease) (HCC) Hypertension PLAN: 06/07: Patient presented after a fall and was found to have left hip fracture. Seen by Ortho and plan for surgery on Thursday 06/08 Continue with DVT prophylaxis with Lovenox, hold this PM Pain control. Pain management following Na 126 -?SIADH due to pain. Cont with PO fluid restriction. Nephrology consulted. Monitor Na level closely and avoid rapid correction. 06/08 Patient is going to the OR today for hip surgery by Ortho Medically Sodium is 129, being followed by broadcast program director. Monitor potassium and renal function Avoid rapid sodium correction Check CBC in the morning 06/09 Patient is doing well. She tolerated her procedure a from yesterday Diet started Sodium is 135 Hemoglobin dropped, will monitor, no signs of bleeding. Likely related to surgery. No new symptoms.Expected postop pain. PT/OT-recommending ECF Ophthalmology evaluated for corneal abrasion, ointment prescribed. Likely ECF soon 06/10 Her hemoglobin dropped but still above 7, she has bleeding at the site of her surgery. Hold Plavix We will resume DVT prophylaxis for now and check CBC in the morning We will monitor in the hospital until her blood counts are stable 06/11 -Her hemoglobin is stable today. No evidence of new bleeding Resume DVT prophylaxis with Lovenox 06/22 Monitor CBC while inpatient and 2 to 3 days after discharge at the facility Clinically ready for discharge at any time 06/12 Hemoglobin remained stable. Awaiting long term facility placement. Family is chosen a facility Patient is medically stable for discharge once facility is arranged She will need to be on DVT prophylaxis, this is ordered. Discussed with patient RN 06/13 Ok to dc if broadcast program director okay with current sodium levels. Doing well otherwise feeling 06/14 1. Will obtain bilateral lower extremity venous duplex to rule out DVT given edema bilateral lower extremity. Less likely but she does have risk factors. Discussed with RN 2. Patient can be discharged to SNF today if above is negative and okay with broadcast program director. Resume current medications otherwise. 06/15 Per PT much weaker today Some concern that pt was flexing hip too much XR ordered Bmp noted today Decrease benzo dose 06/16 Needed reduction of hip last night Pt found to have ativan pills in her bed, pill bottle in purse Was getting ativan from us as well, Noted on high does + narcs at home for her age/ weight Will decrease, and monitor for withdraw Follow Hgb 7 PM to 7 AM, please contact [facility] hospitalist avionics technician for any needs Jamie Roper MD [facility] Hospitalist * James Flood MD - 06/16/2021 11:[address] [facility] Progress Note [facility] Patient: Debra Cole Unit/Bed: 61[facility]098356 Date of : 1940 Acct: [id number] Admitting Diagnosis: Closed fracture of left hip requiring operative repair, initial encounter ([facility]) [S72.002A] Admit Date: 06/05/2021 Hospital Day: 11 Subjective: Patient is having problems with Hyponatremia No acute events overnight S/p reduced left hip 2.21 AF, Blood Pressure stable UOP appropriate Scr improving No sob, orthopnea, no n/v/d Claims she is eating well and not drinking lots of water ++ constipation Swelling improved Patient Seen, Chart, Labs, Radiology studies, and Consults reviewed.. Objective: BP (!) 92/48 Pulse 70 Temp 98.4 F (36.9 C) (Temporal) Resp 19 Ht 5' 2 (1.575 m) Wt 88 lb(39.9 kg) SpO2 100% BMI 16.10 kg/m Intake/Output Summary (Last 24 hours) at 06/16/2021 1129 Last data filed at 06/16/2021 0824 Gross per 24 hour Intake 1042 ml Output 800 ml Net 242 ml Appearance: no acute distress, awake, cachectic frail elderly Eyes: clear conjunctiva, PERRL, pupils normal size ENT: hearing normal, MMM without oral thrush, no erythema or exudate on hard or soft palate, tonguenormal Neck: supple, no LAD, no thyromegaly Respiratory: breathing unlabored, lungs CTA B anteriorly without w/r/r Cardiovascular: heart RRR without m/g/r, pedal pulses palpable Gastrointestinal: abdomen soft, non-tender, non-distended, normoactive bowel sounds. No masses or hernia. Musculoskeletal: normal digits and nails without cyanosis or clubbing, no edema of BL LE Skin: warm and dry, no rash or wounds Neurologic: CN II-XII intact grossly BL, no myoclonus Psychiatric: alert and oriented to person/place/time, normal mood and range of affect Diet: ADULT DIET; Regular ADULT ORAL NUTRITION SUPPLEMENT; Lunch, Dinner; Standard High Calorie/High Protein Oral Supplement Medications: ferrous sulfate 325 mg Oral BID WC enoxaparin 40 mg SubCUTAneous Daily erythromycin Right Eye Q4H levothyroxine 75 mcg Oral Daily sodium chloride flush 5-40 mL IntraVENous 2 times per day [Held by provider] clopidogrel 75 mg Oral Daily [Held by provider] lisinopril 20 mg Oral Daily metoprolol succinate 50 mg Oral Daily montelukast 10 mg Oral Nightly lidocaine 2 patch TransDERmal Daily acetaminophen 1,000 mg Oral TID trospium 20 mg Oral Nightly Continuous Infusions: sodium chloride 75 mL/hr at 06/16/21 0839 sodium chloride PRN Meds:LORazepam, phenol, sodium chloride flush, sodium chloride, ondansetron OR ondansetron,polyethylene glycol, nicotine polacrilex, oxyCODONE OR oxyCODONE, HYDROmorphone DVT Prophylaxis: Data: CBC: Recent Labs 06/14/21 0009 06/14/21 0009 06/15/21 0009 06/16/21 0120 06/16/21 0335 WBC 7.0 -- 8.2 8.8 -- RBC 2.36* -- 2.44* 2.19* -- HGB 7.2* < > 7.3* 6.8* 7.3* HCT 21.2* < > 22.1* 20.3* 22.2* MCV 90.2 -- 90.7 92.9 -- RDW 18.7* -- 18.8* 18.7* -- PLT 517* -- 567* 557* -- < > = values in this interval not displayed. BMP: Recent Labs 06/14/21 0009 06/15/21 0009 06/16/21 0120 NA 129* 131* 131* K 4.4 4.1 3.8 CL 99 99 103 CO2 29 27 25 BUN 27* 38* 27* CREATININE 0.74 0.83 0.60 BNP: No results for input(s): BNP in the last 72 hours. PT/INR: No results for input(s): PROTIME, INR in the last 72 hours. APTT: No results for input(s): APTT in the last 72 hours. CARDIAC ENZYMES: No results for input(s): CKMB, CKMBINDEX, TROPONINT in the last 72 hours. Invalid input(s): CKTOTAL;3 FASTING LIPID PANEL:No results found for: CHOL, HDL, TRIG LIVER PROFILE: No results for input(s): AST, ALT, ALB, BILIDIR, BILITOT, ALKPHOS in the last 72 hours. ABGs: No results found for: PH, PCO2, PO2, HCO3, O2SAT Assessment/Plan: Debra Cole 81 y.o. year old female who we are seeing in consultation for hyponatremia. 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 intake +/- intravascular volume depletion #Hypertension #Left hip fracture #History of stroke #COPD not in acute exacerbation Plan/ - Sodium stable, uop improved, BP stable - Volume status: euvolemic to mild dehydrated. Suspect contributing to constipation. Cont NS @ 75cc/h - Urine studies consistent with SIADH, suspect related to discomfort of fracture and now severe constpation. - Noted potassium of 3.8 suspect higher potassium intake. Will monitor - Strict I's and O's - Encourage oral intake, especially protein intake for solute load (protein shakes/magic cups) - Okay to continue free water restriction to 1.5 L daily - Rest of management per primary team - From renal stand point ok to transition to next level of care as long as sodium > 130. Thank you for asking us to participate in the management of your patient, please do not hesitate tocontact us for any concerns regarding my recommendations as outlined above. Please do no hesitate to call with any questions Pager [phone] * Awilda Salgado RN - 06/15/2021 6:08 PM EST 1716: Ortho and Dr Aden at [facility], 30 mg Propofol given and 100 mcg of Fentanyl for ortho procedure .. * Brent Vizcarra MD - 06/15/2021 5:44 PM EST Orthopedic Surgery Progress Note: Left Hip XR: Posterior dislocation of the left hip hemiarthroplasty with fracture fragment likely from the greater trochanter. No acute fractures or dislocations of the pelvis. Procedure Note: Concious Sedation and reduction of Left Hip Hemiarthroplasty Dislocation Verbal consent was obtained prior to reduction. Conscious sedation was used and the left hip was then reduced. Post reduction films were collected and showed improved alignment. Patient tolerated theprocedure well. Flexion to 95 degrees, ER to 30 degrees and IR to 50 degrees prior to patient beginning to re- dislocate. Motor intact DF/PF/EHL. SILT S/S/SP/DP/T nerve distribution. Palpable DP/PT pulse. Post-reduction L Hip: Left hip hemiarthroplasty reduced in the acetabulum. No additional fractures or dislocations noted. Plan: Patient to remain in the knee immobilizer and abduction pillow at all times while unsupervised. Daily skin checks to be performed each shift. Ok to change PRN for saturation NWB LLE PT/OT Posterior hip precautions Neuro/skin checks DVT ppx per 1 team Pain/medical management per 1 F/u 2 weeks, info in AVS Ortho to sign off, please page avionics technician resident with questions or concerns Brent Vizcarra MD PGY-2 Orthopedic Surgery Pager [phone] * Nela Marin RN - 06/15/2021 3:13 PM EST Pt very lethargic this shift. This RN has only given Tylenol this shift. I asked her if I could look in her purse which was next to her in the chair and she said yes. Home pill bottle for Ativan found and pills verified through pharmacy to be Ativan 2 mg tabs. IMS notified. * Brent Vizcarra MD - 06/15/2021 1:36 PM EST Images from the original note were not included. [facility] [address] [facility] [address] [place] [address] Dept: [phone] Loc: [phone] Orthopedic Progress Note Name: Debra Cole Date:06/15/2021 Attending:Isaak Palma MD Subjective Paged to bedside regarding patient's left hip. Per nursing staff patient had done knees to chest yesterday afternoon and felt a pop in her left hip. She then was unable to ambulate like she had previously last week. Meaningful history unable to be obtained at this time, as patient not fully oriented, but currently denying any numbness/paresthesias or muscle weakness. Objective Vitals: Vitals: 06/14/21 0909 06/14/21 1655 06/14/21 2108 06/15/21 0615 BP: 128/68 122/68 (!) 153/73 130/71 Pulse: 72 72 80 74 Resp: 16 18 14 16 Temp: 97.2 F (36.2 C) 97.8 F (36.6 C) 99.7 F (37.6 C) 94.5 F (34.7 C) TempSrc: Temporal Temporal Temporal Temporal SpO2: 95% 97% 99% 93% Weight: Height: Physical Exam: General: NAD, but pain to the left hip LLE Left lower extremity shortened and internally rotated. Unable to actively flex the hip at this timeand has tenderness around the left hip incision site. Dressing/Skin: Clean/Dry/Intact SILT: Saphenous/Superficial Peroneal/Deep Peroneal/Tibial/Sural distributions Motor: +Dorsiflexion/Plantarflexion/Great toe extension Pulses: Palpable DP LABS: Recent Labs 06/13/21 0150 06/14/21 0009 06/15/21 0009 WBC 8.5 7.0 8.2 HGB 7.4* 7.2* 7.3* HCT 22.3* 21.2* 22.1* PLT 497* 517* 567* Recent Labs 06/13/21 1153 06/14/21 0009 06/15/21 0009 NA 129* 129* 131* K 4.1 4.4 4.1 CL 99 99 99 CO2 27 29 27 BUN 28* 27* 38* CREATININE 0.67 0.74 0.83 CALCIUM 8.4 7.8* 8.4 No results for input(s): INR in the last 72 hours. No results for input(s): SEDRATE, CRP in the last 72 hours. No results for input(s): HCG in the last 72 hours. Assessment Debra is a 81 y.o.female s/p L FNFx + ipsilateral IT fx with previous femoral neck malunion on 06/08with concern for left hip dislocation Plan -Will obtain X-rays of the left hip at this time, pending results for X-ray will then update plan. Patient will likely need to be taken to ICU for sedation or OR if patient had left hip dislocation. -Left Hip XR pending Ok to change PRN for saturation NWB LLE PT/OT Posterior hip precautions Neuro/skin checks DVT ppx per 1 team Pain/medical management per 1 F/u 2 weeks, info in AVS Ortho to follow, please page avionics technician resident with questions or concerns Brent Vizcarra MD PGY-2 Orthopedic Surgery Pager [phone] * Jamie Roper MD - 06/15/2021 12:42 PM EST [facility] hospitalist Hospitalist Progress Note 06/15/2021 12:42 PM 7 PM to 7 AM, please contact [facility] hospitalist avionics technician for any needs Subjective: Admit Date: 06/05/2021 PCP: Jamie Boateng Interval History: No overnight issues. Noted to have significant edema bilateral lower extremity. She is not on IV hydration for multiple days. She is being treated with fluid restriction for SIADH/hyponatremia. ADULT DIET; Regular ADULT ORAL NUTRITION SUPPLEMENT; Lunch, Dinner; Standard High Calorie/High Protein Oral Supplement I/O last 3 completed shifts: In: - Out: 900 [Urine:900] Date 06/15/21 0000 - 06/15/21 2359 Shift [id number] 6819-3706 8022-5092 24 Hour Total INTAKE Shift Total(mL/kg) OUTPUT Urine(mL/kg/hr) 450(1.4) 450 Shift Total(mL/kg) 450(11.3) 450(11.3) Weight (kg) 39.9 39.9 39.9 39.9 No data found. Medications: sodium chloride enoxaparin 40 mg SubCUTAneous Daily erythromycin Right Eye Q4H levothyroxine 75 mcg Oral Daily sodium chloride flush 5-40 mL IntraVENous 2 times per day [Held by provider] clopidogrel 75 mg Oral Daily [Held by provider] lisinopril 20 mg Oral Daily metoprolol succinate 50 mg Oral Daily montelukast 10 mg Oral Nightly lidocaine 2 patch TransDERmal Daily acetaminophen 1,000 mg Oral TID trospium 20 mg Oral Nightly Recent Labs 06/13/21 0150 06/14/21 0009 06/15/21 0009 WBC 8.5 7.0 8.2 HGB 7.4* 7.2* 7.3* PLT 497* 517* 567* Recent Labs 06/13/21 1153 06/14/21 0009 06/15/21 0009 NA 129* 129* 131* K 4.1 4.4 4.1 CL 99 99 99 CO2 27 29 27 BUN 28* 27* 38* CREATININE 0.67 0.74 0.83 GLUCOSE 114* 92 104* No results for input(s): AST, ALT, ALB, BILITOT, ALKPHOS in the last 72 hours. No results found for: TRIG, HDL, LDLCALC, CHOL No results found for: PHART, PO2ART, [id number] No results for input(s): INR in the last 72 hours. No results for input(s): CKTOTAL, CKMB, TROPONINI in the last 72 hours. No results for input(s): DDIMER in the last 72 hours. No components found for: HGBA1C No results found for: TSH Urine Culture: No results found for this or any previous visit. Objective: Vitals: BP 130/71 Pulse 74 Temp 94.5 F (34.7 C) (Temporal) Resp 16 Ht 5' 2 (1.575 m) Wt 88 lb (39.9 kg) SpO2 93% BMI 16.10 kg/m Pulse Ox: SpO2 Av.3 % Min: 93 % Max: 99 % Supplemental O2: O2 Flow Rate (L/min): 2 L/min General appearance: alert and cooperative with exam Lungs: clear to auscultation bilaterally Heart: regular rate and rhythm, S1, S2 normal, no murmur, click, rub or gallop Abdomen: soft, non-tender; bowel sounds normal; no masses, no organomegaly Extremities: extremities normal, atraumatic, no cyanosis. Positive edema bilateral lower extremity.No erythema or tenderness to palpation Neurologic: No obvious focal neurologic deficits. Assessment Left hip fracture S/p mechanical fall Hyponatremia Past Medical History []Expand by Default Diagnosis Date Cerebral artery occlusion with cerebral infarction (HCC) COPD (chronic obstructive pulmonary disease) (HCC) Hypertension PLAN: 06/07: Patient presented after a fall and was found to have left hip fracture. Seen by Ortho and plan for surgery on Thursday 06/08 Continue with DVT prophylaxis with Lovenox, hold this PM Pain control. Pain management following Na 126 -?SIADH due to pain. Cont with PO fluid restriction. Nephrology consulted. Monitor Na level closely and avoid rapid correction. 06/08 Patient is going to the OR today for hip surgery by Ortho Medically Sodium is 129, being followed by broadcast program director. Monitor potassium and renal function Avoid rapid sodium correction Check CBC in the morning 06/09 Patient is doing well. She tolerated her procedure a from yesterday Diet started Sodium is 135 Hemoglobin dropped, will monitor, no signs of bleeding. Likely related to surgery. No new symptoms.Expected postop pain. PT/OT-recommending ECF Ophthalmology evaluated for corneal abrasion, ointment prescribed. Likely ECF soon 06/10 Her hemoglobin dropped but still above 7, she has bleeding at the site of her surgery. Hold Plavix We will resume DVT prophylaxis for now and check CBC in the morning We will monitor in the hospital until her blood counts are stable 06/11 -Her hemoglobin is stable today. No evidence of new bleeding Resume DVT prophylaxis with Lovenox 06/22 Monitor CBC while inpatient and 2 to 3 days after discharge at the facility Clinically ready for discharge at any time 06/12 Hemoglobin remained stable. Awaiting long term facility placement. Family is chosen a facility Patient is medically stable for discharge once facility is arranged She will need to be on DVT prophylaxis, this is ordered. Discussed with patient RN 06/13 Ok to dc if broadcast program director okay with current sodium levels. Doing well otherwise feeling 06/14 1. Will obtain bilateral lower extremity venous duplex to rule out DVT given edema bilateral lower extremity. Less likely but she does have risk factors. Discussed with RN 2. Patient can be discharged to SNF today if above is negative and okay with broadcast program director. Resume current medications otherwise. 06/15 Per PT much weaker today Some concern that pt was flexing hip too much XR ordered Bmp noted today Decrease benzo dose 7 PM to 7 AM, please contact [facility] hospitalist avionics technician for any needs Jamie Roper MD [facility] Hospitalist * EDIE Anne - 06/15/2021 11:52 AM EST Occupational Therapy Facility/Department: [facility] Daily Treatment Note NAME: Debra Cole : 1940 Date of Service: 06/15/2021 Discharge Recommendations: Subacute/Half-Way Facility Assessment Assessment: Pt. recalled 1/3 hip precautions. Pt. performed UE AROM ex's, no standing due to stat x-ray per nursing. OT continue to recommend SNF at discharge. Prognosis: Good OT Education: OT Role;Plan of Care;Precautions;Home Exercise Program REQUIRES OT FOLLOW UP: Yes Activity Tolerance Activity Tolerance: Patient limited by fatigue Safety Devices Safety Devices in place: Yes Type of devices: Left in chair;Call light within reach;Chair alarm in place;Nurse notified;All fallrisk precautions in place Patient Diagnosis(es): The encounter diagnosis was Closed fracture of left hip requiring operative repair, initial encounter (HCC). has a past medical history of Cerebral artery occlusion with cerebral infarction (HCC), COPD (chronic obstructive pulmonary disease) (HCC), and Hypertension. has a past surgical history that includes Cosmetic surgery and orif femur decompression (Left, 06/08/2021). Restrictions Restrictions/Precautions Restrictions/Precautions: Fall Risk,Weight Bearing,Surgical Protocols Required Braces or Orthoses?: No Lower Extremity Weight Bearing Restrictions Left Lower Extremity Weight Bearing: Weight Bearing As Tolerated Position Activity Restriction Hip Precautions: Posterior hip precautions Other position/activity restrictions: +chair alarm Subjective General Chart Reviewed: Yes Patient assessed for rehabilitation services?: Yes Additional Pertinent Hx: COPD; pt reports hx of multiple strokes Family / Caregiver Present: No Diagnosis: fall at home resulting in left intertrochanteric with subtrochanteric extension, proximal femur fx with femoral neck malunion > left hip hemiarthroplasty, ORIF left greater trochanteric/peritrochanteric femur 06/08 Subjective Subjective: Pt. sitting in her recliner, pt. stated she did too much L LE ex's in bed yesterday andher hip hurts worst. Pt. scheduled for a stat xray per nursing, ok for UE AROM ex's in chair. General Comment Comments: Pt found seated in chair. Pt continues to be reluctant to participate but with max encouragement was agreeable to session. Pain Assessment Pain Level: (did not rate pain) Pain Type: Acute pain Pain Location: Hip;Leg Pain Orientation: Left Pain Descriptors: Aching Pain Frequency: Continuous Pre Treatment Pain Screening Intervention List: Patient able to continue with treatment;Nurse/Physician notified Vital Signs Patient Currently in Pain: Yes Orientation Orientation Overall Orientation Status: Within Functional Limits Objective Cognition Overall Cognitive Status: Exceptions Arousal/Alertness: Appropriate responses to stimuli Following Commands: Follows one step commands consistently Attention Span: Attends with cues to redirect Memory: Decreased short term memory Initiation: Requires cues for all Sequencing: Requires cues for some Cognition Comment: 1/3 posterior Hip precautions Type of ROM/Therapeutic Exercise Type of ROM/Therapeutic Exercise: AROM Comment: Bilateral UE AROM ex's 2 sets of 10 reps x 4 ex's with supv. LUE PROM (degrees) LUE PROM: WFL RUE AROM (degrees) RUE AROM : WFL Plan Plan Times per week: 5x Plan weeks: 4 Current Treatment Recommendations: Strengthening,Gait Training,Patient/Caregiver Education & Training,ROM,Stair training,Equipment Evaluation, Education, & procurement,Balance Training,Functional Mobility Training,Cognitive Reorientation,Endurance Training,Pain Management,Cognitive/Perceptual Training,Safety Education & Training,Self-Care / ADL Plan Comment: continue OT per POC AM-PAC Score AM-PAC Inpatient Daily Activity Raw Score: 16 (06/15/21 1142) AM-PAC Inpatient ADL T-Scale Score : 35.96 (06/15/21 1142) ADL Inpatient CMS 0-100% Score: 53.32 (06/15/21 1142) ADL Inpatient CMS G-Code Modifier : CK (06/15/21 114) Goals Short term goals Time Frame for Short term goals: 4 weeks Short term goal 1: LB dressing with Luis Enrique-not addressed Short term goal 2: implement at least one coping strategy to mitigate fear of falling during ADLs/functional mobility with no verbal cues-not addressed Short term goal 3: grooming task standing at sink with supervision and rest breaks PRN-not addressed Short term goal 4: demo safe use of FWW during ADLs with min verbal cues-not addressed Short term goal 5: maintain posterior hip precautions during ADLs with min verbal cues-not addressed Patient Goals Patient goals : Pt wishes to get more therapy Therapy Time Individual Concurrent Group Co-treatment Time In 1114 Time Out 1135 Minutes 21 Timed Code Treatment Minutes: 21 Minutes (ther ex-1) EDIE Schroeder * Nela Marin RN - 06/15/2021 11:22 AM EST Pt stated that she was doing her exercises in bed last night which was bringing her knees to chest.PT working with pt and noticed her not walking as she was just 2 days ago and concerned that hip precautions were broken. Ortho notified and stat Xray ordered. * Elsa Rojas PTA - 06/15/2021 11:06 AM EST Physical Therapy Facility/Department: [facility] Daily Treatment Note NAME: Debra Cole : 1940 Date of Service: 06/15/2021 Discharge Recommendations: Subacute/Half-Way Facility Assessment Body structures, Functions, Activity limitations: Decreased functional mobility ;Decreased endurance;Decreased strength;Decreased balance;Increased pain;Decreased safe awareness;Decreased cognition;Decreased ROM Assessment: Pt present with the above deficits requiring mod assist for transfer and gait. Increaseassist today secondary to pain, not ambulating like she was 2 days ago. Difficulty with WBing in LLE. Pt keeps LLE internally rotated, increase pain when attempting to passively position pt LLE in neutral. Pt states she did exercises yesterday in bed and bringing knees up to her chest, concern thatpt broke hip precautions, RN notified. X-ray now ordered. Rec SNF upon discharge. REQUIRES PT FOLLOW UP: Yes Activity Tolerance Activity Tolerance: Patient limited by fatigue;Patient limited by pain;Patient limited by cognitivestatus;Patient limited by endurance Patient Diagnosis(es): The encounter diagnosis was Closed fracture of left hip requiring operative repair, initial encounter ([facility]). has a past medical history of Cerebral artery occlusion with cerebral infarction ([facility]), COPD (chronic obstructive pulmonary disease) ([facility]), and Hypertension. has a past surgical history that includes Cosmetic surgery and orif femur decompression (Left, 06/08/2021). Restrictions Restrictions/Precautions Restrictions/Precautions: Fall Risk,Weight Bearing,Surgical Protocols Required Braces or Orthoses?: No Lower Extremity Weight Bearing Restrictions Left Lower Extremity Weight Bearing: Weight Bearing As Tolerated Position Activity Restriction Hip Precautions: Posterior hip precautions Other position/activity restrictions: +bed/chair alarm, catheter Subjective General Chart Reviewed: Yes Family / Caregiver Present: No Subjective Subjective: Pt in the process of getting OOB. This INSURANCE SALES SUPERVISOR entered room to assist pt. Pt agreeable to PT. States she is having really bad pain. She states I worked it to hard yesterday doing exercisees. General Comment Comments: MAHOGANY esparza, posterior hip precautions Pain Screening Patient Currently in Pain: Yes Pain Assessment Pain Assessment: 0-10 Pain Level: 10 Pain Type: Acute pain Pain Location: Hip Pain Orientation: Left Objective Bed mobility Comment: pt sitting at EOB upon arrival Transfers Sit to Stand: Moderate Assistance Stand to sit: Moderate Assistance Comment: x2 reps from EOB with FWW. Pt favoring LLE, not putting much weight through LLE Ambulation Ambulation?: Yes Ambulation 1 Surface: level tile Device: Rolling Walker Assistance: Moderate assistance Gait Deviations: Slow Jennifer;Decreased step length;Decreased step height Distance: 3ft bed>chair Comments: pt with flexed posture, leg length difference (pt has to flex right knee to at least 60 degrees for her left foot to touch the ground) and increase pain in LLE. Pt keeps LLE internally rotated Stairs/Curb Stairs?: No Balance Comments: sitting at EOB, occasional UE support, LLE IR, resistant with attempting to passively putin neutral, SBA for balance; static standing with FWW, not WBing through LLE with knee IR, min assist for balance. AM-PAC Score AM-PAC Inpatient Mobility Raw Score : 8 (06/15/211212) AM-PAC Inpatient T-Scale Score : 28.52 (06/15/211212) Mobility Inpatient CMS 0-100% Score: 86.62 (06/15/211212) Mobility Inpatient CMS G-Code Modifier : CM (06/15/211212) Goals Short term goals Time Frame for Short term goals: 2 weeks Short term goal 1: Pt to perform bed mobility with stand by assist-progressing Short term goal 2: Pt to perform sit to stand transfers with min assist-progressing Short term goal 3: Pt to ambulate with least restrictive device x 50' with min assist-progressing Patient Goals Patient goals : to have less pain Plan Plan Times per week: 5-7 Plan weeks: 2 Current Treatment Recommendations: Strengthening,Transfer Training,Endurance Training,Patient/Caregiver Education & Training,Equipment Evaluation, Education, & procurement,Balance Training,Gait Training,Functional Mobility Training,Safety Education & Training,ROM Safety Devices Type of devices: All fall risk precautions in place,Patient at risk for falls,Call light within reach,Gait belt,Chair alarm in place,Left in chair,Nurse notified Restraints Initially in place: No Therapy Time Individual Concurrent Group Co-treatment Time In 1042 Time Out 1106 Minutes 24 Timed Code Treatment Minutes: 24 Minutes (fa x 2) Elsa Rojas PTA * James Flood MD - 06/15/2021 10:29 AM EST [facility] Progress Note [facility] TELEMET[facility] Patient: Debra Cole Unit/Bed: 6113/[id number] Date of : 1940 Acct: [id number] Admitting Diagnosis: Closed fracture of left hip requiring operative repair, initial encounter ([facility]) [S72.002A] Admit Date: 06/05/2021 Hospital Day: 10 Subjective: Patient is having problems with Hyponatremia No acute events overnight AF, Blood Pressure stable UOP appropriate Scr improving No sob, orthopnea, no n/v/d Claims she is eating well and not drinking lots of water ++ constipation Swelling improved Patient Seen, Chart, Labs, Radiology studies, and Consults reviewed.. Objective: BP 130/71 Pulse 74 Temp 94.5 F (34.7 C) (Temporal) Resp 16 Ht 5' 2 (1.575 m) Wt 88 lb (39.9 kg) SpO2 93% BMI 16.10 kg/m Intake/Output Summary (Last 24 hours) at 06/15/2021 1029 Last data filed at 06/15/2021 0655 Gross per 24 hour Intake Output 700 ml Net -700 ml Appearance: no acute distress, awake, cachectic frail elderly Eyes: clear conjunctiva, PERRL, pupils normal size ENT: hearing normal, MMM without oral thrush, no erythema or exudate on hard or soft palate, tonguenormal Neck: supple, no LAD, no thyromegaly Respiratory: breathing unlabored, lungs CTA B anteriorly without w/r/r Cardiovascular: heart RRR without m/g/r, pedal pulses palpable Gastrointestinal: abdomen soft, non-tender, non-distended, normoactive bowel sounds. No masses or hernia. Musculoskeletal: normal digits and nails without cyanosis or clubbing, no edema of BL LE Skin: warm and dry, no rash or wounds Neurologic: CN II-XII intact grossly BL, no myoclonus Psychiatric: alert and oriented to person/place/time, normal mood and range of affect Diet: ADULT DIET; Regular ADULT ORAL NUTRITION SUPPLEMENT; Lunch, Dinner; Standard High Calorie/High Protein Oral Supplement Medications: enoxaparin 40 mg SubCUTAneous Daily erythromycin Right Eye Q4H levothyroxine 75 mcg Oral Daily sodium chloride flush 5-40 mL IntraVENous 2 times per day [Held by provider] clopidogrel 75 mg Oral Daily [Held by provider] lisinopril 20 mg Oral Daily metoprolol succinate 50 mg Oral Daily montelukast 10 mg Oral Nightly lidocaine 2 patch TransDERmal Daily acetaminophen 1,000 mg Oral TID trospium 20 mg Oral Nightly Continuous Infusions: sodium chloride PRN Meds:LORazepam, sodium chloride flush, sodium chloride, ondansetron OR ondansetron, polyethylene glycol, nicotine polacrilex, oxyCODONE OR oxyCODONE, HYDROmorphone DVT Prophylaxis: Data: CBC: Recent Labs 06/13/21 0150 06/14/21 0009 06/15/21 000 WBC 8.5 7.0 8.2 RBC 2.44* 2.36* 2.44* HGB 7.4* 7.2* 7.3* HCT 22.3* 21.2* 22.1* MCV 91.3 90.2 90.7 RDW 18.6* 18.7* 18.8* PLT 497* 517* 567* BMP: Recent Labs 06/13/21 1153 06/14/21 0009 06/15/21 0009 NA 129* 129* 131* K 4.1 4.4 4.1 CL 99 99 99 CO2 27 29 27 BUN 28* 27* 38* CREATININE 0.67 0.74 0.83 BNP: No results for input(s): BNP in the last 72 hours. PT/INR: No results for input(s): PROTIME, INR in the last 72 hours. APTT: No results for input(s): APTT in the last 72 hours. CARDIAC ENZYMES: No results for input(s): CKMB, CKMBINDEX, TROPONINT in the last 72 hours. Invalid input(s): CKTOTAL;3 FASTING LIPID PANEL:No results found for: CHOL, HDL, TRIG LIVER PROFILE: No results for input(s): AST, ALT, ALB, BILIDIR, BILITOT, ALKPHOS in the last 72 hours. ABGs: No results found for: PH, PCO2, PO2, HCO3, O2SAT Assessment/Plan: Debra Cole 81 y.o. year old female who we are seeing in consultation for hyponatremia. 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 intake +/- intravascular volume depletion #Hypertension #Left hip fracture #History of stroke #COPD not in acute exacerbation Plan/ - Sodium improving, uop improved, BP stable - Volume status: euvolemic to mild dehydrated. Suspect contributing to constipation. Will start NS @ 75cc/h - Urine studies consistent with SIADH, suspect related to discomfort of fracture and now severe constpation. - Noted potassium of 4.4, suspect higher potassium intake. Will monitor - Strict I's and O's - Encourage oral intake, especially protein intake for solute load (protein shakes/magic cups) - Okay to continue free water restriction to 1.5 L daily - Rest of management per primary team - We will continue to follow - From renal stand point ok to transition to next level of care as long as sodium > 130. Thank you for asking us to participate in the management of your patient, please do not hesitate tocontact us for any concerns regarding my recommendations as outlined above. Please do no hesitate to call with any questions Pager [phone] * James Flood MD - 06/14/2021 12:33 PM EST [facility] Progress Note [facility]LE[facility] Patient: Debra Cole Unit/Bed: [id number] Date of : 1940 Acct: [id number] Admitting Diagnosis: Closed fracture of left hip requiring operative repair, initial encounter ([facility]) [S72.002A] Admit Date: 06/05/2021 Hospital Day: 9 Subjective: Patient is having problems with Hyponatremia No acute events overnight AF, Blood Pressure stable UOP appropriate Scr improving No sob, orthopnea, no n/v/d Claims she is eating well and not drinking lots of water ++ constipation Swelling improved Patient Seen, Chart, Labs, Radiology studies, and Consults reviewed.. Objective: BP 128/68 Pulse 72 Temp 97.2 F (36.2 C) (Temporal) Resp 16 Ht 5' 2 (1.575 m) Wt 88 lb (39.9 kg) SpO2 95% BMI 16.10 kg/m Intake/Output Summary (Last 24 hours) at 06/14/2021 1233 Last data filed at 06/14/2021 0909 Gross per 24 hour Intake Output 450 ml Net -450 ml Appearance: no acute distress, awake, cachectic frail elderly Eyes: clear conjunctiva, PERRL, pupils normal size ENT: hearing normal, MMM without oral thrush, no erythema or exudate on hard or soft palate, tonguenormal Neck: supple, no LAD, no thyromegaly Respiratory: breathing unlabored, lungs CTA B anteriorly without w/r/r Cardiovascular: heart RRR without m/g/r, pedal pulses palpable Gastrointestinal: abdomen soft, non-tender, non-distended, normoactive bowel sounds. No masses or hernia. Musculoskeletal: normal digits and nails without cyanosis or clubbing, no edema of BL LE Skin: warm and dry, no rash or wounds Neurologic: CN II-XII intact grossly BL, no myoclonus Psychiatric: alert and oriented to person/place/time, normal mood and range of affect Diet: ADULT DIET; Regular ADULT ORAL NUTRITION SUPPLEMENT; Lunch, Dinner; Standard High Calorie/High Protein Oral Supplement Medications: enoxaparin 40 mg SubCUTAneous Daily erythromycin Right Eye Q4H levothyroxine 75 mcg Oral Daily sodium chloride flush 5-40 mL IntraVENous 2 times per day [Held by provider] clopidogrel 75 mg Oral Daily [Held by provider] lisinopril 20 mg Oral Daily metoprolol succinate 50 mg Oral Daily montelukast 10 mg Oral Nightly lidocaine 2 patch TransDERmal Daily acetaminophen 1,000 mg Oral TID trospium 20 mg Oral Nightly Continuous Infusions: sodium chloride PRN Meds:LORazepam, sodium chloride flush, sodium chloride, ondansetron OR ondansetron, polyethylene glycol, nicotine polacrilex, oxyCODONE OR oxyCODONE, HYDROmorphone DVT Prophylaxis: Data: CBC: Recent Labs 06/12/21 0018 06/13/21 0150 06/14/21 0009 WBC 8.5 8.5 7.0 RBC 2.48* 2.44* 2.36* HGB 7.6* 7.4* 7.2* HCT 22.4* 22.3* 21.2* MCV 90.6 91.3 90.2 RDW 19.0* 18.6* 18.7* PLT 413 497* 517* BMP: Recent Labs 06/13/21 0150 06/13/21 1153 06/14/21 0009 NA 128* 129* 129* K 4.1 4.1 4.4 CL 100 99 99 CO2 28 27 29 BUN 32* 28* 27* CREATININE 0.68 0.67 0.74 BNP: No results for input(s): BNP in the last 72 hours. PT/INR: No results for input(s): PROTIME, INR in the last 72 hours. APTT: No results for input(s): APTT in the last 72 hours. CARDIAC ENZYMES: No results for input(s): CKMB, CKMBINDEX, TROPONINT in the last 72 hours. Invalid input(s): CKTOTAL;3 FASTING LIPID PANEL:No results found for: CHOL, HDL, TRIG LIVER PROFILE: No results for input(s): AST, ALT, ALB, BILIDIR, BILITOT, ALKPHOS in the last 72 hours. ABGs: No results found for: PH, PCO2, PO2, HCO3, O2SAT Assessment/Plan: Debra Cole 81 y.o. year old female who we are seeing in consultation for hyponatremia. 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 intake +/- intravascular volume depletion #Hypertension #Left hip fracture #History of stroke #COPD not in acute exacerbation Plan/ - Sodium stable, uop improved, BP stable - Volume status: approaching euvolemic? - Urine studies consistent with SIADH, suspect related to discomfort of fracture and now severe constpation. - Noted potassium of 4.4, suspect higher potassium intake. Will monitor - Strict I's and O's - Encourage oral intake, especially protein intake for solute load (protein shakes/magic cups) - Okay to continue free water restriction to 1.5 L daily - Rest of management per primary team - We will continue to follow - From renal stand point ok to transition to next level of care as long as sodium > 130. Thank you for asking us to participate in the management of your patient, please do not hesitate tocontact us for any concerns regarding my recommendations as outlined above. Please do no hesitate to call with any questions Pager [phone] * Susan Rosenberg RN - 06/14/2021 11:35 AM EST Patient agreed to go to ultrasound after explanation of what the test was for, visitor at bedside will wait. * Heri Redd DO - 06/14/2021 9:47 AM EST [facility] 06/14/2021 12:47 PM 7 PM to 7 AM, please contact [facility] hospitalist avionics technician for any needs Subjective: Admit Date: 06/05/2021 PCP: Jamie Boateng Interval History: No overnight issues. Noted to have significant edema bilateral lower extremity. She is not on IV hydration for multiple days. She is being treated with fluid restriction for SIADH/hyponatremia. ADULT DIET; Regular ADULT ORAL NUTRITION SUPPLEMENT; Lunch, Dinner; Standard High Calorie/High Protein Oral Supplement I/O last 3 completed shifts: In: - Out: 550 [Urine:550] Date 06/14/21 0000 - 06/14/21 2359 Shift 0409-9123 9434-5350 6831-8536 24 Hour Total INTAKE Shift Total(mL/kg) OUTPUT Urine(mL/kg/hr) 200 200 Shift Total(mL/kg) 200(5) 200(5) Weight (kg) 39.9 39.9 39.9 39.9 No data found. Medications: sodium chloride enoxaparin 40 mg SubCUTAneous Daily erythromycin Right Eye Q4H levothyroxine 75 mcg Oral Daily sodium chloride flush 5-40 mL IntraVENous 2 times per day [Held by provider] clopidogrel 75 mg Oral Daily [Held by provider] lisinopril 20 mg Oral Daily metoprolol succinate 50 mg Oral Daily montelukast 10 mg Oral Nightly lidocaine 2 patch TransDERmal Daily acetaminophen 1,000 mg Oral TID trospium 20 mg Oral Nightly Recent Labs 06/12/21 0018 06/13/21 0150 06/14/21 0009 WBC 8.5 8.5 7.0 HGB 7.6* 7.4* 7.2* PLT 413 497* 517* Recent Labs 06/13/21 0150 06/13/21 1153 06/14/21 0009 NA 128* 129* 129* K 4.1 4.1 4.4 CL 100 99 99 CO2 28 27 29 BUN 32* 28* 27* CREATININE 0.68 0.67 0.74 GLUCOSE 88 114* 92 No results for input(s): AST, ALT, ALB, BILITOT, ALKPHOS in the last 72 hours. No results found for: TRIG, HDL, LDLCALC, CHOL No results found for: PHART, PO2ART, [id number] No results for input(s): INR in the last 72 hours. No results for input(s): CKTOTAL, CKMB, TROPONINI in the last 72 hours. No results for input(s): DDIMER in the last 72 hours. No components found for: HGBA1C No results found for: TSH Urine Culture: No results found for this or any previous visit. Objective: Vitals: BP 128/68 Pulse 72 Temp 97.2 F (36.2 C) (Temporal) Resp 16 Ht 5' 2 (1.575 m) Wt 88 lb (39.9 kg) SpO2 95% BMI 16.10 kg/m Pulse Ox: SpO2 Av.6 % Min: 93 % Max: 96 % Supplemental O2: O2 Flow Rate (L/min): 2 L/min General appearance: alert and cooperative with exam Lungs: clear to auscultation bilaterally Heart: regular rate and rhythm, S1, S2 normal, no murmur, click, rub or gallop Abdomen: soft, non-tender; bowel sounds normal; no masses, no organomegaly Extremities: extremities normal, atraumatic, no cyanosis. Positive edema bilateral lower extremity.No erythema or tenderness to palpation Neurologic: No obvious focal neurologic deficits. Assessment Left hip fracture S/p mechanical fall Hyponatremia Past Medical History []Expand by Default Diagnosis Date Cerebral artery occlusion with cerebral infarction (HCC) COPD (chronic obstructive pulmonary disease) (HCC) Hypertension PLAN: 06/07: Patient presented after a fall and was found to have left hip fracture. Seen by Ortho and plan for surgery on Thursday 06/08 Continue with DVT prophylaxis with Lovenox, hold this PM Pain control. Pain management following Na 126 -?SIADH due to pain. Cont with PO fluid restriction. Nephrology consulted. Monitor Na level closely and avoid rapid correction. 06/08 Patient is going to the OR today for hip surgery by Ortho Medically Sodium is 129, being followed by broadcast program director. Monitor potassium and renal function Avoid rapid sodium correction Check CBC in the morning 06/09 Patient is doing well. She tolerated her procedure a from yesterday Diet started Sodium is 135 Hemoglobin dropped, will monitor, no signs of bleeding. Likely related to surgery. No new symptoms.Expected postop pain. PT/OT-recommending ECF Ophthalmology evaluated for corneal abrasion, ointment prescribed. Likely ECF soon 06/10 Her hemoglobin dropped but still above 7, she has bleeding at the site of her surgery. Hold Plavix We will resume DVT prophylaxis for now and check CBC in the morning We will monitor in the hospital until her blood counts are stable 06/11 -Her hemoglobin is stable today. No evidence of new bleeding Resume DVT prophylaxis with Lovenox 06/22 Monitor CBC while inpatient and 2 to 3 days after discharge at the facility Clinically ready for discharge at any time 06/12 Hemoglobin remained stable. Awaiting long term facility placement. Family is chosen a facility Patient is medically stable for discharge once facility is arranged She will need to be on DVT prophylaxis, this is ordered. Discussed with patient RN 06/13 Ok to dc if broadcast program director okay with current sodium levels. Doing well otherwise feeling 06/14 1. Will obtain bilateral lower extremity venous duplex to rule out DVT given edema bilateral lower extremity. Less likely but she does have risk factors. Discussed with RN 2. Patient can be discharged to SNF today if above is negative and okay with broadcast program director. 3. Resume current medications otherwise. 7 PM to 7 AM, please contact [facility] hospitalist avionics technician for any needs Heri Redd DO Rounding Hospitalist * Susan Rosenberg RN - 06/13/2021 6:49 PM EST Notified IMS of increased weeping from BLE and L hip. Patient required a new dressing to the L hip d/t weeping from the skin where the shama are. 2+ pitting edema to BLE * Erin Burroughs RD, LD - 06/13/2021 4:17 PM EST Comprehensive Nutrition Assessment Type and Reason for Visit: Initial Nutrition Recommendations/Plan: 1. Continue with Regular diet and initiate Standard High Calorie High Protein Oral Supplement on lunch and dinner trays via MNT protocol. 2. Would not recommend restricting diet to Gluten Free as pt has no PMH that supports this restriction - continue to monitor. 3. Monitor po intake/nutritional status. Nutrition Assessment: Pt is an 81 year female with PMH significant for alcohol use disorder, recurrent depression, multiple falls (per care everywhere and pt endorses), mixed HPL, panic disorder, mixed IBS who presents with left hip pain s/p ground level fall. Per MD notes: she is a transfer from [place], endorses numerous previous hip injuries all of which were never evaluated by an orthopedic surgeon (she was found to have had a femur fracture 10+ years ago but decided to manage this fractureby continuous ambulation until the pain went away. She states that her left leg is now 3 inches shorter than her right and has been this way for over 10 years). She admits s/p fall and sustained a closed fracture of left hip requiring operative repair. RD visited pt she states that she has been avoding gluten since ~March 2021/April 2021, no history of celiac disease, she heard EPI being discussed on late night radio talk show and feels that she has that. She is able to note decreased appetite but unknown amount of time, unsure if she has lost weight. Per visual assessment pt s biceps/triceps with minimal to no muscle definition, prominent bone (pt waved arms during discussion, explaining current diet). She states that she would like to try Ensure (vanilla). Malnutrition Assessment: Malnutrition Status: Severe malnutrition Context: Acute Illness Findings of the 6 clinical characteristics of malnutrition: Energy Intake: 7 - 50% or less of estimated energy requirements for 5 or more days Weight Loss: Unable to assess (likely weight loss, not able to verify as pt seems like a somewhat unreliable historian and no weights in Epic.) Body Fat Loss: 7 - Moderate body fat loss Orbital,Buccal region,Triceps Muscle Mass Loss: 7 - Moderate muscle mass loss (bicep/triceps) Fluid Accumulation: No significant fluid accumulation Knapsack Sprayer Strength: Not Performed Estimated Daily Nutrient Needs: Energy (kcal): 3414-2032 kcals/day; Weight Used for Energy Requirements: [place] (50 kgs) Protein (g): 60-70g protein/day; Weight Used for Protein Requirements: [place] (50kgs - 1.2-1.4g protein/kg) Fluid (ml/day): 1250 mls; Method Used for Fluid Requirements: ml/Kg (25 mls/kg) Nutrition Related Findings: +BS, +1 RLE pitting edema, +2 LLE pitting edema. EPI - exocrine pancreatic insufficiency. Current Nutrition Therapies: ADULT DIET; Regular Anthropometric Measures: Height: 5' 2 (157.5 cm) Current Body Weight: 88 lb (39.9 kg) [place] Body Weight: 110 lbs; % [place] Body Weight 80 % BMI: 16.1 BMP: Recent Labs 06/12/21 0018 06/13/21 0150 06/13/21 1153 NA 132* 128* 129* K 4.8 4.1 4.1 CL 102 100 99 CO2 28 28 27 BUN 31* 32* 28* CREATININE 0.72 0.68 0.67 GLUCOSE 92 88 114* CALCIUM 8.6 8.1* 8.4 Na+ - decreased. BG - elevated. Nutrition Diagnosis: Severe malnutrition,In context of acute illness or injury related to cognitive or neurological impairment as evidenced by poor intake prior to admission,moderate loss of subcutaneous fat,moderate muscle loss Increased nutrient needs related to acute injury/trauma as evidenced by (increased nutrient for fracture healing) Nutrition Interventions: Food and/or Nutrient Delivery: Continue Current Diet,Start Oral Nutrition Supplement Nutrition Education/Counseling: Education not indicated Coordination of Nutrition Care: Continue to monitor while inpatient Goals: Pt consumes >50-75% meals consistently. Nutrition Monitoring and Evaluation: Food/Nutrient Intake Outcomes: Food and Nutrient Intake,Supplement Intake Physical Signs/Symptoms Outcomes: Biochemical Data,Chewing or Swallowing,Nutrition Focused PhysicalFindings,Skin,Weight Discharge Planning: Too soon to determine Contact: Pager #[phone] * James Flood MD - 06/13/2021 3:16 PM EST [facility] Progress Note [facility] H[facility] TELEMETRY Patient: Debra Cole Unit/Bed: [id number] Date of : 1940 Acct: [id number] Admitting Diagnosis: Closed fracture of left hip requiring operative repair, initial encounter ([facility]) [S72.002A] Admit Date: 06/05/2021 Hospital Day: 8 Subjective: Patient is having problems with Hyponatremia No acute events overnight AF, Blood Pressure stable UOP appropriate Scr improving No sob, orthopnea, no n/v/d Claims she is eating well and not drinking lots of water ++ constipation Swelling improved Patient Seen, Chart, Labs, Radiology studies, and Consults reviewed.. Objective: BP (!) 158/108 Pulse 72 Temp 98.1 F (36.7 C) (Temporal) Resp 16 Ht 5' 2 (1.575 m) Wt 88 lb (39.9 kg) SpO2 91% BMI 16.10 kg/m Intake/Output Summary (Last 24 hours) at 06/13/2021 1516 Last data filed at 06/13/2021 0500 Gross per 24 hour Intake Output 300 ml Net -300 ml Appearance: no acute distress, awake, cachectic frail elderly Eyes: clear conjunctiva, PERRL, pupils normal size ENT: hearing normal, MMM without oral thrush, no erythema or exudate on hard or soft palate, tonguenormal Neck: supple, no LAD, no thyromegaly Respiratory: breathing unlabored, lungs CTA B anteriorly without w/r/r Cardiovascular: heart RRR without m/g/r, pedal pulses palpable Gastrointestinal: abdomen soft, non-tender, non-distended, normoactive bowel sounds. No masses or hernia. Musculoskeletal: normal digits and nails without cyanosis or clubbing, no edema of BL LE Skin: warm and dry, no rash or wounds Neurologic: CN II-XII intact grossly BL, no myoclonus Psychiatric: alert and oriented to person/place/time, normal mood and range of affect Diet: ADULT DIET; Regular Medications: enoxaparin 40 mg SubCUTAneous Daily erythromycin Right Eye Q4H levothyroxine 75 mcg Oral Daily sodium chloride flush 5-40 mL IntraVENous 2 times per day [Held by provider] clopidogrel 75 mg Oral Daily [Held by provider] lisinopril 20 mg Oral Daily metoprolol succinate 50 mg Oral Daily montelukast 10 mg Oral Nightly lidocaine 2 patch TransDERmal Daily acetaminophen 1,000 mg Oral TID trospium 20 mg Oral Nightly Continuous Infusions: sodium chloride PRN Meds:LORazepam, sodium chloride flush, sodium chloride, ondansetron OR ondansetron, polyethylene glycol, nicotine polacrilex, oxyCODONE OR oxyCODONE, HYDROmorphone DVT Prophylaxis: Data: CBC: Recent Labs 06/11/21 0358 06/12/21 0018 06/13/21 0150 WBC 8.6 8.5 8.5 RBC 2.60* 2.48* 2.44* HGB 7.8* 7.6* 7.4* HCT 23.9* 22.4* 22.3* MCV 92.1 90.6 91.3 RDW 19.1* 19.0* 18.6* PLT 385 413 497* BMP: Recent Labs 06/12/21 0018 06/13/21 0150 06/13/21 1153 NA 132* 128* 129* K 4.8 4.1 4.1 CL 102 100 99 CO2 28 28 27 BUN 31* 32* 28* CREATININE 0.72 0.68 0.67 BNP: No results for input(s): BNP in the last 72 hours. PT/INR: No results for input(s): PROTIME, INR in the last 72 hours. APTT: No results for input(s): APTT in the last 72 hours. CARDIAC ENZYMES: No results for input(s): CKMB, CKMBINDEX, TROPONINT in the last 72 hours. Invalid input(s): CKTOTAL;3 FASTING LIPID PANEL:No results found for: CHOL, HDL, TRIG LIVER PROFILE: No results for input(s): AST, ALT, ALB, BILIDIR, BILITOT, ALKPHOS in the last 72 hours. ABGs: No results found for: PH, PCO2, PO2, HCO3, O2SAT Assessment/Plan: Debra Cole 81 y.o. year old female who we are seeing in consultation for hyponatremia. 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 intake +/- intravascular volume depletion #Hypertension #Left hip fracture #History of stroke #COPD not in acute exacerbation Plan/ - Sodium stable, uop improved, BP stable - Volume status: approaching euvolemic? Rechecking urine studies. - Noted potassium of 4.1, suspect higher potassium intake. Will monitor - Strict I's and O's - Encourage oral intake, especially protein intake for solute load (protein shakes/magic cups) - Okay to continue free water restriction to 1.5 L daily - Rest of management per primary team - We will continue to follow - From renal stand point ok to transition to next level of care as long as sodium > 130. Thank you for asking us to participate in the management of your patient, please do not hesitate tocontact us for any concerns regarding my recommendations as outlined above. Please do no hesitate to call with any questions Pager [phone] * Elsa Rojas, INSURANCE SALES SUPERVISOR - 06/13/2021 10:47 AM EST Physical Therapy Facility/Department: [facility] Daily Treatment Note NAME: Debra Cole : 1940 Date of Service: 06/13/2021 Discharge Recommendations: Subacute/Half-Way Facility Assessment Body structures, Functions, Activity limitations: Decreased functional mobility ;Decreased endurance;Decreased strength;Decreased balance;Increased pain;Decreased safe awareness;Decreased cognition;Decreased ROM Assessment: Pt present with the above deficits requiring min assist for transfer and gait. Increasetime to complete task, needs redirected (pleasantly confused). 2/3 recall of posterior hip precautions. Pt more SOBOE, standing rest breaks with gait and cues for pursed lip breathing. Rec facility based therapy upon discharge. REQUIRES PT FOLLOW UP: Yes Activity Tolerance Activity Tolerance: Patient limited by fatigue;Patient limited by pain;Patient limited by cognitivestatus;Patient limited by endurance Patient Diagnosis(es): The encounter diagnosis was Closed fracture of left hip requiring operative repair, initial encounter ([facility]). has a past medical history of Cerebral artery occlusion with cerebral infarction (HCC), COPD (chronic obstructive pulmonary disease) (HCC), and Hypertension. has a past surgical history that includes Cosmetic surgery and orif femur decompression (Left, 06/08/2021). Restrictions Restrictions/Precautions Restrictions/Precautions: Fall Risk,Weight Bearing,Surgical Protocols Required Braces or Orthoses?: No Lower Extremity Weight Bearing Restrictions Left Lower Extremity Weight Bearing: Weight Bearing As Tolerated Position Activity Restriction Hip Precautions: Posterior hip precautions Other position/activity restrictions: +chair alarm Subjective General Chart Reviewed: Yes Family / Caregiver Present: No Subjective Subjective: Pt reclined in chair, agreeable to PT. General Comment Comments: MAHOGANY esparza, posterior hip precautions Pain Screening Patient Currently in Pain: Yes Pain Assessment Pain Level: 4 Pain Type: Acute pain;Surgical pain Pain Location: Hip Pain Orientation: Left Objective Transfers Sit to Stand: Minimal Assistance Stand to sit: Minimal Assistance Comment: x 3 reps from chair with FWW. Ambulation Ambulation?: Yes More Ambulation?: Yes Ambulation 1 Surface: level tile Device: Rolling Walker Assistance: Minimal assistance Gait Deviations: Slow Jennifer;Decreased step length;Decreased step height Distance: 18ft Comments: seated rest break due to fatigue. Cues for sequencing Ambulation 2 Surface - 2: level tile Device 2: Rolling Walker Assistance 2: Minimal assistance Gait Deviations: Slow Jennifer;Decreased step length;Decreased step height Distance: 10ft Comments: SOBOE, fatigue, increase step length Balance Comments: static standing with FWW, mild dizziness and SOB, cues for deep breathing, CGA for balance. Exercises Quad Sets: x 5 reps each, difficulty staying on task Heelslides: x 10 reps each; AAROM LLE Ankle Pumps: x 10 reps each AM-PAC Score AM-PAC Inpatient Mobility Raw Score : 11 (06/13/21 1148) AM-PAC Inpatient T-Scale Score : 33.86 (06/13/21 1148) Mobility Inpatient CMS 0-100% Score: 72.57 (06/13/21 1148) Mobility Inpatient CMS G-Code Modifier : CL (06/13/21 1148) Goals Short term goals Time Frame for Short term goals: 2 weeks Short term goal 1: Pt to perform bed mobility with stand by assist-progressing Short term goal 2: Pt to perform sit to stand transfers with min assist-progressing Short term goal 3: Pt to ambulate with least restrictive device x 50' with min assist-progressing Patient Goals Patient goals : to have less pain Plan Plan Times per week: 5-7 Plan weeks: 2 Current Treatment Recommendations: Strengthening,Transfer Training,Endurance Training,Patient/Caregiver Education & Training,Equipment Evaluation, Education, & procurement,Balance Training,Gait Training,Functional Mobility Training,Safety Education & Training,ROM Safety Devices Type of devices: All fall risk precautions in place,Patient at risk for falls,Call light within reach,Gait belt,Chair alarm in place,Left in chair Restraints Initially in place: No Therapy Time Individual Concurrent Group Co-treatment Time In 1017 Time Out 1047 Minutes 30 Timed Code Treatment Minutes: 30 Minutes (fa; gait) Elsa Rojas, INSURANCE SALES SUPERVISOR * Heri Redd DO - 06/13/2021 10:43 AM EST [facility] hospitalist Hospitalist Progress Note 06/13/2021 1:43 PM 7 PM to 7 AM, please contact [facility] hospitalist avionics technician for any needs Subjective: Admit Date: 06/05/2021 PCP: Jamie Boateng Interval History: No overnight issues. ADULT DIET; Regular I/O last 3 completed shifts: In: 500 [P.O.:500] Out: 1390 [Urine:1390] Date 06/13/21 0000 - 06/13/21 2359 Shift [id number] 8510-5948 2377-2076 24 Hour Total INTAKE Shift Total(mL/kg) OUTPUT Urine(mL/kg/hr) 300(0.9) 300 Shift Total(mL/kg) 300(7.5) 300(7.5) Weight (kg) 39.9 39.9 39.9 39.9 No data found. Medications: sodium chloride enoxaparin 40 mg SubCUTAneous Daily erythromycin Right Eye Q4H levothyroxine 75 mcg Oral Daily sodium chloride flush 5-40 mL IntraVENous 2 times per day [Held by provider] clopidogrel 75 mg Oral Daily [Held by provider] lisinopril 20 mg Oral Daily metoprolol succinate 50 mg Oral Daily montelukast 10 mg Oral Nightly lidocaine 2 patch TransDERmal Daily acetaminophen 1,000 mg Oral TID trospium 20 mg Oral Nightly Recent Labs 06/11/21 0358 06/12/21 0018 06/13/21 0150 WBC 8.6 8.5 8.5 HGB 7.8* 7.6* 7.4* PLT 385 413 497* Recent Labs 06/12/21 0018 06/13/21 0150 06/13/21 1153 NA 132* 128* 129* K 4.8 4.1 4.1 CL 102 100 99 CO2 28 28 27 BUN 31* 32* 28* CREATININE 0.72 0.68 0.67 GLUCOSE 92 88 114* No results for input(s): AST, ALT, ALB, BILITOT, ALKPHOS in the last 72 hours. No results found for: TRIG, HDL, LDLCALC, CHOL No results found for: PHART, PO2ART, [id number] No results for input(s): INR in the last 72 hours. No results for input(s): CKTOTAL, CKMB, TROPONINI in the last 72 hours. No results for input(s): DDIMER in the last 72 hours. No components found for: HGBA1C No results found for: TSH Urine Culture: No results found for this or any previous visit. Objective: Vitals: BP (!) 158/108 Pulse 72 Temp 98.1 F (36.7 C) (Temporal) Resp 16 Ht 5' 2 (1.575 m) Wt 88 lb (39.9 kg) SpO2 91% BMI 16.10 kg/m Pulse Ox: SpO2 Av.5 % Min: 91 % Max: 96 % Supplemental O2: O2 Flow Rate (L/min): 2 L/min General appearance: alert and cooperative with exam Lungs: clear to auscultation bilaterally Heart: regular rate and rhythm, S1, S2 normal, no murmur, click, rub or gallop Abdomen: soft, non-tender; bowel sounds normal; no masses, no organomegaly Extremities: extremities normal, atraumatic, no cyanosis or edema Neurologic: No obvious focal neurologic deficits. Assessment Left hip fracture S/p mechanical fall Hyponatremia Past Medical History []Expand by Default Diagnosis Date Cerebral artery occlusion with cerebral infarction (HCC) COPD (chronic obstructive pulmonary disease) (HCC) Hypertension PLAN: 06/07: Patient presented after a fall and was found to have left hip fracture. Seen by Ortho and plan for surgery on Thursday 06/08 Continue with DVT prophylaxis with Lovenox, hold this PM Pain control. Pain management following Na 126 -?SIADH due to pain. Cont with PO fluid restriction. Nephrology consulted. Monitor Na level closely and avoid rapid correction. 06/08 Patient is going to the OR today for hip surgery by Ortho Medically Sodium is 129, being followed by broadcast program director. Monitor potassium and renal function Avoid rapid sodium correction Check CBC in the morning 06/09 Patient is doing well. She tolerated her procedure a from yesterday Diet started Sodium is 135 Hemoglobin dropped, will monitor, no signs of bleeding. Likely related to surgery. No new symptoms.Expected postop pain. PT/OT-recommending ECF Ophthalmology evaluated for corneal abrasion, ointment prescribed. Likely ECF soon 06/10 Her hemoglobin dropped but still above 7, she has bleeding at the site of her surgery. Hold Plavix We will resume DVT prophylaxis for now and check CBC in the morning We will monitor in the hospital until her blood counts are stable 06/11 -Her hemoglobin is stable today. No evidence of new bleeding Resume DVT prophylaxis with Lovenox 06/22 Monitor CBC while inpatient and 2 to 3 days after discharge at the facility Clinically ready for discharge at any time 06/12 Hemoglobin remained stable. Awaiting long term facility placement. Family is chosen a facility Patient is medically stable for discharge once facility is arranged She will need to be on DVT prophylaxis, this is ordered. Discussed with patient RN 06/13 Ok to dc if broadcast program director okay with current sodium levels. Doing well otherwise feeling 7 PM to 7 AM, please contact [facility] hospitalist avionics technician for any needs Heri Redd DO Rounding Hospitalist * EDIE Torres - 06/13/2021 9:55 AM EST Occupational Therapy Facility/Department: [facility] Daily Treatment Note NAME: Debra Cole : 1940 Date of Service: 06/13/2021 Discharge Recommendations: Subacute/Half-Way Facility Assessment Assessment: Progressing toward goals, responds well to encouragement. After review of hip precautions several times, pt able to recall 2/3 at end of session. Would benefit from SNF level therapies topromote return to highest level of function and for AE training for lower body ADL. REQUIRES OT FOLLOW UP: Yes Safety Devices Type of devices: Left in chair;Call light within reach;Chair alarm in place Restrictions Hip Precautions: Posterior hip precautions Subjective Subjective: Pt in bed, agrees to OT. I'm a chicken. Frequently expresses fear of mobility/falling. Responds well to encouragement. Unable to recall hip precautions but states would restrict movement because of pain. Pain Assessment Pain Level: 4 Pain Type: Acute pain;Surgical pain Pain Location: Hip;Leg Pain Orientation: Left Vital Signs Patient Currently in Pain: Yes Objective ADL Grooming: Supervision (wash face, comb hair at EOB) LE Dressing: Maximum assistance Toileting: Moderate assistance Balance Sitting Balance: Supervision (approx 6:00 at EOB) Standing Balance Comment: Min assist static and dynamic stand. With initial stand from EOB, pt becomes anxious, I feel like my heart is pounding. Assurance provided as well as cues to slow breathing, pt responds well and almost immediately reports feeling better. Functional Mobility Functional Mobility Comments: Funct amb short distance in room with FWW, min assist. Cues for positioning in relation to walker, step length. Pt moves slowly. Toilet Transfers Equipment Used: Standard bedside commode Toilet Transfer: Minimal assistance Bed mobility Supine to Sit: Minimal assistance (for LLE) Scooting: Contact guard assistance (scoot to EOB once upright) Transfers Sit to stand: Minimal assistance (several trials from both bed and chair, pt uses one hand on surface, one on FWW) Stand to sit: Minimal assistance Plan Plan Comment: continue OT per POC AM-PAC Score AM-PAC Inpatient Daily Activity Raw Score: 17 (06/13/211002) AM-PAC Inpatient ADL T-Scale Score : 37.26 (06/13/211002) ADL Inpatient CMS 0-100% Score: 50.11 (06/13/211002) ADL Inpatient CMS G-Code Modifier : CK (06/13/211002) Goals Short term goal 1: LB dressing with Luis Enrique-progressing Short term goal 2: implement at least one coping strategy to mitigate fear of falling during ADLs/functional mobility with no verbal cues-progressing Short term goal 3: grooming task standing at sink with supervision and rest breaks PRN-progressing Short term goal 4: demo safe use of FWW during ADLs with min verbal cues-progressing Short term goal 5: maintain posterior hip precautions during ADLs with min verbal cues-progressing Therapy Time Individual Concurrent Group Co-treatment Time In 902 Time Out 0955 Minutes 52 Timed Code Treatment Minutes: 39 Minutes (Funct--2; Self--1) Variance: 13 (RN providing care) EDIE Donovan * James Flood MD - 06/12/2021 12:46 PM EST [facility] Progress Note [facility] Patient: Debra Cole Unit/Bed: [facility]971520 Date of : 1940 Acct: [id number] Admitting Diagnosis: Closed fracture of left hip requiring operative repair, initial encounter ([facility]) [S72.002A] Admit Date: 06/05/2021 Hospital Day: 7 Subjective: Patient is having problems with Hyponatremia No acute events overnight AF, Blood Pressure stable UOP appropriate Scr improving No sob, orthopnea, no n/v/d Swelling improved Patient Seen, Chart, Labs, Radiology studies, and Consults reviewed. Objective: BP (!) 141/79 Pulse 87 Temp 98.6 F (37 C) (Temporal) Resp 16 Ht 5' 2 (1.575 m) Wt 88 lb (39.9 kg) SpO2 92% BMI 16.10 kg/m Intake/Output Summary (Last 24 hours) at 06/12/2021 1246 Last data filed at 06/12/2021 0532 Gross per 24 hour Intake 450 ml Output 890 ml Net -440 ml Appearance: no acute distress, awake, cachectic frail elderly Eyes: clear conjunctiva, PERRL, pupils normal size ENT: hearing normal, MMM without oral thrush, no erythema or exudate on hard or soft palate, tonguenormal Neck: supple, no LAD, no thyromegaly Respiratory: breathing unlabored, lungs CTA B anteriorly without w/r/r Cardiovascular: heart RRR without m/g/r, pedal pulses palpable Gastrointestinal: abdomen soft, non-tender, non-distended, normoactive bowel sounds. No masses or hernia. Musculoskeletal: normal digits and nails without cyanosis or clubbing, no edema of BL LE Skin: warm and dry, no rash or wounds Neurologic: CN II-XII intact grossly BL, no myoclonus Psychiatric: alert and oriented to person/place/time, normal mood and range of affect Diet: ADULT DIET; Regular Medications: enoxaparin 40 mg SubCUTAneous Daily erythromycin Right Eye Q4H levothyroxine 75 mcg Oral Daily sodium chloride flush 5-40 mL IntraVENous 2 times per day [Held by provider] clopidogrel 75 mg Oral Daily [Held by provider] lisinopril 20 mg Oral Daily metoprolol succinate 50 mg Oral Daily montelukast 10 mg Oral Nightly lidocaine 2 patch TransDERmal Daily acetaminophen 1,000 mg Oral TID trospium 20 mg Oral Nightly Continuous Infusions: sodium chloride PRN Meds:LORazepam, sodium chloride flush, sodium chloride, ondansetron OR ondansetron, polyethylene glycol, nicotine polacrilex, oxyCODONE OR oxyCODONE, HYDROmorphone DVT Prophylaxis: Data: CBC: Recent Labs 06/10/21 0116 06/11/21 0358 06/12/21 0018 WBC 9.7 8.6 8.5 RBC 2.53* 2.60* 2.48* HGB 7.7* 7.8* 7.6* HCT 23.2* 23.9* 22.4* MCV 91.4 92.1 90.6 RDW 18.6* 19.1* 19.0* PLT 338 385 413 BMP: Recent Labs 06/10/21 0116 06/11/21 0358 06/12/21 0018 NA 132* 133* 132* K 4.6 5.2* 4.8 CL 105 104 102 CO2 27 27 28 BUN 33* 33* 31* CREATININE 0.91 0.81 0.72 BNP: No results for input(s): BNP in the last 72 hours. PT/INR: No results for input(s): PROTIME, INR in the last 72 hours. APTT: No results for input(s): APTT in the last 72 hours. CARDIAC ENZYMES: No results for input(s): CKMB, CKMBINDEX, TROPONINT in the last 72 hours. Invalid input(s): CKTOTAL;3 FASTING LIPID PANEL:No results found for: CHOL, HDL, TRIG LIVER PROFILE: No results for input(s): AST, ALT, ALB, BILIDIR, BILITOT, ALKPHOS in the last 72 hours. ABGs: No results found for: PH, PCO2, PO2, HCO3, O2SAT Assessment/Plan: Debra Cole 81 y.o. year old female who we are seeing in consultation for hyponatremia. 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 intake +/- intravascular volume depletion #Hypertension #Left hip fracture #History of stroke #COPD not in acute exacerbation Plan/ - Sodium stable, uop improved, BP stable - Volume status: approaching euvolemic - Noted potassium of 4.8, suspect higher potassium intake. Will monitor - Strict I's and O's - Encourage oral intake, especially protein intake for solute load (protein shakes/magic cups) - Okay to continue free water restriction to 1.5 L daily - Rest of management per primary team - We will continue to follow - From renal stand point ok to transition to next level of care as long as sodium > 130. Thank you for asking us to participate in the management of your patient, please do not hesitate tocontact us for any concerns regarding my recommendations as outlined above. Please do no hesitate to call with any questions Pager [phone] * Tabby Hudson DTR - 06/12/2021 11:05 AM EST Nutrition update completed. Chart reviewed. Refer patient to the Dietitian. * Heri Redd DO - 06/12/2021 8:04 AM EST [facility] hospitalist Hospitalist Progress Note 06/12/2021 1:04 PM 7 PM to 7 AM, please contact [facility] hospitalist avionics technician for any needs Subjective: Admit Date: 06/05/2021 PCP: Jamie Boateng Interval History: No overnight issues. ADULT DIET; Regular I/O last 3 completed shifts: In: 450 [P.O.:450] Out: 1040 [Urine:1040] Date 06/12/21 0000 - 06/12/212358 Shift [id number] 2358-8205 8843-1523 24 Hour Total INTAKE Shift Total(mL/kg) OUTPUT Urine(mL/kg/hr) 350(1.1) 350 Shift Total(mL/kg) 350(8.8) 350(8.8) Weight (kg) 39.9 39.9 39.9 39.9 No data found. Medications: sodium chloride enoxaparin 40 mg SubCUTAneous Daily erythromycin Right Eye Q4H levothyroxine 75 mcg Oral Daily sodium chloride flush 5-40 mL IntraVENous 2 times per day [Held by provider] clopidogrel 75 mg Oral Daily [Held by provider] lisinopril 20 mg Oral Daily metoprolol succinate 50 mg Oral Daily montelukast 10 mg Oral Nightly lidocaine 2 patch TransDERmal Daily acetaminophen 1,000 mg Oral TID trospium 20 mg Oral Nightly Recent Labs 06/10/21 0116 06/11/21 0358 06/12/21 0018 WBC 9.7 8.6 8.5 HGB 7.7* 7.8* 7.6* PLT 338 385 413 Recent Labs 06/10/21 0116 06/11/21 0358 06/12/21 0018 NA 132* 133* 132* K 4.6 5.2* 4.8 CL 105 104 102 CO2 27 27 28 BUN 33* 33* 31* CREATININE 0.91 0.81 0.72 GLUCOSE 101* 92 92 No results for input(s): AST, ALT, ALB, BILITOT, ALKPHOS in the last 72 hours. No results found for: TRIG, HDL, LDLCALC, CHOL No results found for: PHART, PO2ART, GHM1ICH No results for input(s): INR in the last 72 hours. No results for input(s): CKTOTAL, CKMB, TROPONINI in the last 72 hours. No results for input(s): DDIMER in the last 72 hours. No components found for: HGBA1C No results found for: TSH Urine Culture: No results found for this or any previous visit. Objective: Vitals: BP (!) 141/79 Pulse 87 Temp 98.6 F (37 C) (Temporal) Resp 16 Ht 5' 2 (1.575 m) Wt 88 lb (39.9 kg) SpO2 92% BMI 16.10 kg/m Pulse Ox: SpO2 Av % Min: 92 % Max: 92 % Supplemental O2: O2 Flow Rate (L/min): 2 L/min General appearance: alert and cooperative with exam Lungs: clear to auscultation bilaterally Heart: regular rate and rhythm, S1, S2 normal, no murmur, click, rub or gallop Abdomen: soft, non-tender; bowel sounds normal; no masses, no organomegaly Extremities: extremities normal, atraumatic, no cyanosis or edema Neurologic: No obvious focal neurologic deficits. Assessment Left hip fracture S/p mechanical fall Hyponatremia Past Medical History []Expand by Default Diagnosis Date Cerebral artery occlusion with cerebral infarction (HCC) COPD (chronic obstructive pulmonary disease) (HCC) Hypertension PLAN: 06/07: Patient presented after a fall and was found to have left hip fracture. Seen by Ortho and plan for surgery on Thursday 06/08 Continue with DVT prophylaxis with Lovenox, hold this PM Pain control. Pain management following Na 126 -?SIADH due to pain. Cont with PO fluid restriction. Nephrology consulted. Monitor Na level closely and avoid rapid correction. 06/08 Patient is going to the OR today for hip surgery by Ortho Medically Sodium is 129, being followed by broadcast program director. Monitor potassium and renal function Avoid rapid sodium correction Check CBC in the morning 06/09 Patient is doing well. She tolerated her procedure a from yesterday Diet started Sodium is 135 Hemoglobin dropped, will monitor, no signs of bleeding. Likely related to surgery. No new symptoms.Expected postop pain. PT/OT-recommending ECF Ophthalmology evaluated for corneal abrasion, ointment prescribed. Likely ECF soon 06/10 Her hemoglobin dropped but still above 7, she has bleeding at the site of her surgery. Hold Plavix We will resume DVT prophylaxis for now and check CBC in the morning We will monitor in the hospital until her blood counts are stable 06/11 -Her hemoglobin is stable today. No evidence of new bleeding Resume DVT prophylaxis with Lovenox 06/22 Monitor CBC while inpatient and 2 to 3 days after discharge at the facility Clinically ready for discharge at any time 06/12 Hemoglobin remained stable. Awaiting long term facility placement. Family is chosen a facility Patient is medically stable for discharge once facility is arranged She will need to be on DVT prophylaxis, this is ordered. Discussed with patient RN 7 PM to 7 AM, please contact [facility] hospitalist avionics technician for any needs Heri Redd DO [facility] Hospitalist * Sylvia Mares RN - 06/12/2021 5:01 AM EST Pt was bladder scanned and straight cathed per Dr. Guzman at 2213 and got 315cc out. Pt still stating that she has to urinate. She has been on the bedpan and commode several times throughout the night but refusing to go by saying I'm too scared or it hurts too bad in reference to her hip. Pt is confused as to where she is and situation. Bladder scanner currently showing >480cc. Notified Dr. Guzman at 0500. Instructed to place esparza. Obtained 350cc. Will continue to monitor. * Sylvia Mares RN - 06/12/2021 4:30 AM EST Pt's IV found lying on ground at 0400. Pt stated, I pulled it out because something was on my arm and it hurt. Paged Dr. Guzman to see if it would be necessary to place another IV since pt has noscheduled IV meds or continuous fluids. Dr. Guzman said she would defer this to the day hospitalist. No IV access at this time. Pt resting comfortably. Bed alarm on. * Elsa Rojas PTA - 06/11/2021 2:47 PM EST Physical Therapy Facility/Department: [facility] Daily Treatment Note NAME: Debra Cole : 1940 Date of Service: 06/11/2021 Discharge Recommendations: Subacute/Half-Way Facility Assessment Body structures, Functions, Activity limitations: Decreased functional mobility ;Decreased endurance;Decreased strength;Decreased balance;Increased pain;Decreased safe awareness;Decreased cognition;Decreased ROM Assessment: Pt pleaseantly confused. Progressing towards goals. Min assist for transfer, balance and gait. 0/3 recall of posterior hip precaution, education provided. Reviewed ther ex. Increase time to complete all task. Rec facility based therapy upon discharge. REQUIRES PT FOLLOW UP: Yes Activity Tolerance Activity Tolerance: Patient limited by fatigue;Patient limited by pain;Patient limited by cognitivestatus Patient Diagnosis(es): The encounter diagnosis was Closed fracture of left hip requiring operative repair, initial encounter ([facility]). has a past medical history of Cerebral artery occlusion with cerebral infarction ([facility]), COPD (chronic obstructive pulmonary disease) ([facility]), and Hypertension. has a past surgical history that includes Cosmetic surgery and orif femur decompression (Left, 06/08/2021). Restrictions Restrictions/Precautions Restrictions/Precautions: Fall Risk,Weight Bearing,Surgical Protocols Required Braces or Orthoses?: No Lower Extremity Weight Bearing Restrictions Left Lower Extremity Weight Bearing: Weight Bearing As Tolerated Position Activity Restriction Hip Precautions: Posterior hip precautions Other position/activity restrictions: +chair alarm Subjective General Chart Reviewed: Yes Family / Caregiver Present: No Subjective Subjective: Pt reclined in chair, incontinent of urine. Agreeable to PT. Pain Screening Patient Currently in Pain: Yes (Pt c/o LLE pain, does not rate pain) Objective Transfers Sit to Stand: Minimal Assistance Stand to sit: Minimal Assistance Comment: x 1 from chair with FWW. Cues for hand placement. Ambulation Ambulation?: Yes Ambulation 1 Surface: level tile Device: Rolling Walker Assistance: Minimal assistance Gait Deviations: Slow Jennifer;Decreased step length;Decreased step height Distance: 20 ft Comments: increase time, standing rest breaks. Cues for sequencing Balance Comments: static standing with FWW, min assist for safety. Exercises Quad Sets: x 10 reps each Heelslides: x 10 reps each; AAROM LLE Gluteal Sets: x 10 reps Knee Long Arc Quad: x 10 reps each Ankle Pumps: x 10 reps each AM-PAC Score AM-PAC Inpatient Mobility Raw Score : 8 (06/11/211445) AM-PAC Inpatient T-Scale Score : 28.52 (06/11/211445) Mobility Inpatient CMS 0-100% Score: 86.62 (06/11/211445) Mobility Inpatient CMS G-Code Modifier : CM (06/11/211445) Goals Short term goals Time Frame for Short term goals: 2 weeks Short term goal 1: Pt to perform bed mobility with stand by assist-progressing Short term goal 2: Pt to perform sit to stand transfers with min assist-progressing Short term goal 3: Pt to ambulate with least restrictive device x 50' with min assist-progressing Patient Goals Patient goals : to have less pain Plan Plan Times per week: 5-7 Plan weeks: 2 Current Treatment Recommendations: Strengthening,Transfer Training,Endurance Training,Patient/Caregiver Education & Training,Equipment Evaluation, Education, & procurement,Balance Training,Gait Training,Functional Mobility Training,Safety Education & Training,ROM Safety Devices Type of devices: All fall risk precautions in place,Patient at risk for falls,Call light within reach,Nurse notified,Gait belt,Chair alarm in place,Left in chair Restraints Initially in place: No Therapy Time Individual Concurrent Group Co-treatment Time In 1357 Time Out 1422 Minutes 25 Timed Code Treatment Minutes: 25 Minutes (tp; gait) Elsa Rojas PTA * EDIE Anne - 06/11/2021 11:33 AM EST Occupational Therapy Facility/Department: [facility] Daily Treatment Note NAME: Debra Cole : 1940 Date of Service: 06/11/2021 Discharge Recommendations: Subacute/Half-Way Facility Assessment Assessment: Pt. very fearful of falling which limits her indep's to stand and perform functional mobility. Pt. requires increased time to complete tasks and requires re-direction back to tasks. Pt unsafe to return home and a HIGH risk for falls. Pt. State 0/3 posterior hip precautions. OT recommending SNF to maximize safety during ADL re-training and return to baseline independence. Prognosis: Good OT Education: OT Role;Orientation;Plan of Care;Equipment;Precautions;Transfer Training;ADL AdaptiveStrategies Patient Education: deep breathing and imagery to mitigate ([place]) fear of falling REQUIRES OT FOLLOW UP: Yes Activity Tolerance Activity Tolerance: Patient limited by pain;Patient limited by fatigue Safety Devices Safety Devices in place: Yes Type of devices: Gait belt;All fall risk precautions in place;Nurse notified;Call light within reach;Chair alarm in place;Left in chair Patient Diagnosis(es): The encounter diagnosis was Closed fracture of left hip requiring operative repair, initial encounter ([facility]). has a past medical history of Cerebral artery occlusion with cerebral infarction ([facility]), COPD (chronic obstructive pulmonary disease) ([facility]), and Hypertension. has a past surgical history that includes Cosmetic surgery and orif femur decompression (Left, 06/08/2021). Restrictions Restrictions/Precautions Restrictions/Precautions: Fall Risk,Weight Bearing,Surgical Protocols Required Braces or Orthoses?: No Lower Extremity Weight Bearing Restrictions Left Lower Extremity Weight Bearing: Weight Bearing As Tolerated Position Activity Restriction Hip Precautions: Posterior hip precautions Subjective General Chart Reviewed: Yes Patient assessed for rehabilitation services?: Yes Additional Pertinent Hx: COPD; pt reports hx of multiple strokes Family / Caregiver Present: No Diagnosis: fall at home resulting in left intertrochanteric with subtrochanteric extension, proximal femur fx with femoral neck malunion > left hip hemiarthroplasty, ORIF left greater trochanteric/peritrochanteric femur 06/08 Subjective Subjective: Pt expressed concerns of falling throughout session despite max encouragement and education. General Comment Comments: Pt found seated in chair. Pt continues to be reluctant to participate but with max encouragement was agreeable to session. Pain Assessment Pain Level: 6 Pain Type: Acute pain Pain Location: Hip Pain Orientation: Left Pain Descriptors: Tender;Sore;Throbbing Pain Frequency: Intermittent Pre Treatment Pain Screening Intervention List: Patient able to continue with treatment;Nurse/Physician notified Vital Signs Patient Currently in Pain: Yes Orientation Orientation Overall Orientation Status: Within Functional Limits Objective ADL Grooming: (wash/dry face, combed hair in the chair) LE Dressing: Maximum assistance (don/doff socks) Toileting: Moderate assistance (pericare with standing) Balance Sitting Balance: Supervision Standing Balance: Moderate assistance Standing Balance Time: pt. stood 2-3 min's x 4 stands with mod assist using FWW Functional Mobility Functional - Mobility Device: Rolling Walker Activity: Other (BSC<->chair 3-4' away) Assist Level: Moderate assistance Toilet Transfers Toilet - Technique: Ambulating Equipment Used: Standard bedside commode Toilet Transfer: Maximum assistance Transfers Stand Step Transfers: Moderate assistance Sit to stand: Moderate assistance Stand to sit: Moderate assistance Transfer Comments: use of FWW Plan Plan Times per week: 5x Plan weeks: 4 Current Treatment Recommendations: Strengthening,Gait Training,Patient/Caregiver Education & Training,ROM,Stair training,Equipment Evaluation, Education, & procurement,Balance Training,Functional Mobility Training,Cognitive Reorientation,Endurance Training,Pain Management,Cognitive/Perceptual Training,Safety Education & Training,Self-Care / ADL Plan Comment: continue OT POC AM-PAC Score AM-PAC Inpatient Daily Activity Raw Score: 17 (06/11/21 112) AM-PAC Inpatient ADL T-Scale Score : 37.26 (06/11/21 112) ADL Inpatient CMS 0-100% Score: 50.11 (06/11/21 1123) ADL Inpatient CMS G-Code Modifier : CK (06/11/211122) Goals Short term goals Time Frame for Short term goals: 4 weeks Short term goal 1: LB dressing with Luis Enrique-progressing Short term goal 2: implement at least one coping strategy to mitigate fear of falling during ADLs/functional mobility with no verbal cues-progressing Short term goal 3: grooming task standing at sink with supervision and rest breaks PRN-progressing Short term goal 4: demo safe use of FWW during ADLs with min verbal cues-progressing Short term goal 5: maintain posterior hip precautions during ADLs with min verbal cues-progressing Patient Goals Patient goals : Pt wishes to get more therapy Therapy Time Individual Concurrent Group Co-treatment Time In 1026 Time Out 1117 Minutes 51 Timed Code Treatment Minutes: 51 Minutes (ther act-2, self care-1) EDIE Schroeder * James Flood MD - 06/11/2021 10:29 AM EST [facility] Progress Note [facility] Patient: Debra Cole Unit/Bed: 6113/120744 Date of : 1940 Acct: [id number] Admitting Diagnosis: Closed fracture of left hip requiring operative repair, initial encounter ([facility]) [S72.002A] Admit Date: 06/05/2021 Hospital Day: 6 Subjective: Patient is having problems with Hyponatremia No acute events overnight AF, Blood Pressure stable UOP appropriate Scr improving No sob, orthopnea, no n/v/d Swelling improved Patient Seen, Chart, Labs, Radiology studies, and Consults reviewed. Objective: BP 130/74 Pulse 98 Temp 98.9 F (37.2 C) (Temporal) Resp 16 Ht 5' 2 (1.575 m) Wt 88 lb (39.9 kg) SpO2 97% BMI 16.10 kg/m Intake/Output Summary (Last 24 hours) at 06/11/2021 1029 Last data filed at 06/10/2021 1530 Gross per 24 hour Intake Output 250 ml Net -250 ml Appearance: no acute distress, awake, cachectic frail elderly Eyes: clear conjunctiva, PERRL, pupils normal size ENT: hearing normal, MMM without oral thrush, no erythema or exudate on hard or soft palate, tonguenormal Neck: supple, no LAD, no thyromegaly Respiratory: breathing unlabored, lungs CTA B anteriorly without w/r/r Cardiovascular: heart RRR without m/g/r, pedal pulses palpable Gastrointestinal: abdomen soft, non-tender, non-distended, normoactive bowel sounds. No masses or hernia. Musculoskeletal: normal digits and nails without cyanosis or clubbing, no edema of BL LE Skin: warm and dry, no rash or wounds Neurologic: CN II-XII intact grossly BL, no myoclonus Psychiatric: alert and oriented to person/place/time, normal mood and range of affect Diet: ADULT DIET; Regular Medications: enoxaparin 40 mg SubCUTAneous Daily erythromycin Right Eye Q4H levothyroxine 75 mcg Oral Daily sodium chloride flush 5-40 mL IntraVENous 2 times per day [Held by provider] clopidogrel 75 mg Oral Daily [Held by provider] lisinopril 20 mg Oral Daily metoprolol succinate 50 mg Oral Daily montelukast 10 mg Oral Nightly lidocaine 2 patch TransDERmal Daily acetaminophen 1,000 mg Oral TID trospium 20 mg Oral Nightly Continuous Infusions: sodium chloride PRN Meds:LORazepam, sodium chloride flush, sodium chloride, ondansetron OR ondansetron, polyethylene glycol, nicotine polacrilex, oxyCODONE OR oxyCODONE, HYDROmorphone DVT Prophylaxis: Data: CBC: Recent Labs 06/09/21 0019 06/10/216 06/11/21 0358 WBC 8.5 9.7 8.6 RBC 2.93* 2.53* 2.60* HGB 8.9* 7.7* 7.8* HCT 27.1* 23.2* 23.9* MCV 92.4 91.4 92.1 RDW 19.0* 18.6* 19.1* PLT 250 338 385 BMP: Recent Labs 06/09/21 00106/10/2111506/11/218 NA 135 132* 133* K 3.7 4.6 5.2* CL 102 105 104 CO2 26 27 27 BUN 27* 33* 33* CREATININE 0.68 0.91 0.81 BNP: No results for input(s): BNP in the last 72 hours. PT/INR: No results for input(s): PROTIME, INR in the last 72 hours. APTT: No results for input(s): APTT in the last 72 hours. CARDIAC ENZYMES: No results for input(s): CKMB, CKMBINDEX, TROPONINT in the last 72 hours. Invalid input(s): CKTOTAL;3 FASTING LIPID PANEL:No results found for: CHOL, HDL, TRIG LIVER PROFILE: No results for input(s): AST, ALT, ALB, BILIDIR, BILITOT, ALKPHOS in the last 72 hours. ABGs: No results found for: PH, PCO2, PO2, HCO3, O2SAT Assessment/Plan: Debra Cole 81 y.o. year old female who we are seeing in consultation for hyponatremia. 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 intake +/- intravascular volume depletion #Hypertension #Left hip fracture #History of stroke #COPD not in acute exacerbation Plan/ - Sodium stable, uop improved, BP stable - Volume status: approaching euvolemic - Noted potassium of 5.2, suspect higher potassium intake. Will monitor - Strict I's and O's -Encourage oral intake, especially protein intake for solute load (protein shakes/magic cups) -Okay to continue free water restriction to 1.5 L daily -Rest of management per primary team -We will continue to follow - From renal stand point ok to transition to next level of care as long as sodium > 130. Thank you for asking us to participate in the management of your patient, please do not hesitate tocontact us for any concerns regarding my recommendations as outlined above. Please do no hesitate to call with any questions Pager [phone] * Heri Redd, DO - 06/11/2021 8:38 AM EST [facility] hospitalist Hospitalist Progress Note 06/11/2021 2:38 PM 7 PM to 7 AM, please contact [facility] hospitalist avionics technician for any needs Subjective: Admit Date: 06/05/2021 PCP: Jamie Boateng Interval History: No overnight issues. ADULT DIET; Regular I/O last 3 completed shifts: In: - Out: 250 [Urine:250] Patient Vitals for the past 96 hrs (Last 3 readings): Weight 06/08/21 1257 88 lb (39.9 kg) Medications: sodium chloride enoxaparin 40 mg SubCUTAneous Daily erythromycin Right Eye Q4H levothyroxine 75 mcg Oral Daily sodium chloride flush 5-40 mL IntraVENous 2 times per day [Held by provider] clopidogrel 75 mg Oral Daily [Held by provider] lisinopril 20 mg Oral Daily metoprolol succinate 50 mg Oral Daily montelukast 10 mg Oral Nightly lidocaine 2 patch TransDERmal Daily acetaminophen 1,000 mg Oral TID trospium 20 mg Oral Nightly Recent Labs 06/09/21 0019 06/10/21 0116 06/11/21 0358 WBC 8.5 9.7 8.6 HGB 8.9* 7.7* 7.8* PLT 250 338 385 Recent Labs 06/09/21 0019 06/10/21 0116 06/11/21 0358 NA 135 132* 133* K 3.7 4.6 5.2* CL 102 105 104 CO2 26 27 27 BUN 27* 33* 33* CREATININE 0.68 0.91 0.81 GLUCOSE 223* 101* 92 No results for input(s): AST, ALT, ALB, BILITOT, ALKPHOS in the last 72 hours. No results found for: TRIG, HDL, LDLCALC, CHOL No results found for: PHART, PO2ART, JSM4SIC No results for input(s): INR in the last 72 hours. No results for input(s): CKTOTAL, CKMB, TROPONINI in the last 72 hours. No results for input(s): DDIMER in the last 72 hours. No components found for: HGBA1C No results found for: TSH Urine Culture: No results found for this or any previous visit. Objective: Vitals: BP 130/74 Pulse 98 Temp 98.9 F (37.2 C) (Temporal) Resp 16 Ht 5' 2 (1.575 m) Wt 88 lb (39.9 kg) SpO2 97% BMI 16.10 kg/m Pulse Ox: SpO2 Av % Min: 95 % Max: 97 % Supplemental O2: O2 Flow Rate (L/min): 2 L/min General appearance: alert and cooperative with exam Lungs: clear to auscultation bilaterally Heart: regular rate and rhythm, S1, S2 normal, no murmur, click, rub or gallop Abdomen: soft, non-tender; bowel sounds normal; no masses, no organomegaly Extremities: extremities normal, atraumatic, no cyanosis or edema Neurologic: No obvious focal neurologic deficits. Assessment Left hip fracture S/p mechanical fall Hyponatremia Past Medical History []Expand by Default Diagnosis Date Cerebral artery occlusion with cerebral infarction (HCC) COPD (chronic obstructive pulmonary disease) (HCC) Hypertension PLAN: 06/07: Patient presented after a fall and was found to have left hip fracture. Seen by Ortho and plan for surgery on Thursday 06/08 Continue with DVT prophylaxis with Lovenox, hold this PM Pain control. Pain management following Na 126 -?SIADH due to pain. Cont with PO fluid restriction. Nephrology consulted. Monitor Na level closely and avoid rapid correction. 06/08 Patient is going to the OR today for hip surgery by Ortho Medically Sodium is 129, being followed by broadcast program director. Monitor potassium and renal function Avoid rapid sodium correction Check CBC in the morning 06/09 Patient is doing well. She tolerated her procedure a from yesterday Diet started Sodium is 135 Hemoglobin dropped, will monitor, no signs of bleeding. Likely related to surgery. No new symptoms.Expected postop pain. PT/OT-recommending ECF Ophthalmology evaluated for corneal abrasion, ointment prescribed. Likely ECF soon 06/10 Her hemoglobin dropped but still above 7, she has bleeding at the site of her surgery. Hold Plavix We will resume DVT prophylaxis for now and check CBC in the morning We will monitor in the hospital until her blood counts are stable 06/11 -Her hemoglobin is stable today. No evidence of new bleeding Resume DVT prophylaxis with Lovenox 06/22 Monitor CBC while inpatient and 2 to 3 days after discharge at the facility Clinically ready for discharge at any time 7 PM to 7 AM, please contact [facility] hospitalist avionics technician for any needs Heri Redd DO [facility] Hospitalist * Malena Valdes RN - 06/10/2021 4:20 PM EST Patient has only voided twice this shift (100-150 cc each time). Bladder scan volume showed 200cc. Patient states she doesn't feel the urge to go. Dr. Redd notified. RN told to bladder scan again in 2-3 hours. If patient is greater than 300cc RN told to straight cath. * Ian Seth, PT - 06/10/2021 4:14 PM EST Physical Therapy Facility/Department: [facility] Daily Treatment Note NAME: Debra Cole : 1940 Date of Service: 06/10/2021 Discharge Recommendations: Subacute/Half-Way Facility PT Equipment Recommendations Equipment Needed: (will need to use FWW regardless of setting) Assessment Body structures, Functions, Activity limitations: Decreased functional mobility ;Decreased endurance;Decreased strength;Decreased balance;Increased pain;Decreased safe awareness Assessment: Pt struggled very much with focusing with therapy today. In isolation, LLE with surprisingly good open chain strength. Pt unable to offer precautions (even after handout provided), very much struggled following directions with sequencing with gait. Sit to stand mod of 1. Amb mod of 1 10'x1, 12'x1 FWW (pt laments how tired she is, especially in UEs). Sit to supine mod of 1 (complete assist with LLE)--pt with tendency to allow I/R of LLE in supine, so placed not only pillows between knees, but also blanket roll. Prognosis: Fair REQUIRES PT FOLLOW UP: Yes Activity Tolerance Activity Tolerance: Treatment limited secondary to medical complications (free text);Patient limited by cognitive status;Patient limited by fatigue;Patient limited by pain Patient Diagnosis(es): The encounter diagnosis was Closed fracture of left hip requiring operative repair, initial encounter ([facility]). has a past medical history of Cerebral artery occlusion with cerebral infarction ([facility]), COPD (chronic obstructive pulmonary disease) ([facility]), and Hypertension. has a past surgical history that includes Cosmetic surgery and orif femur decompression (Left, 06/08/2021). Restrictions Restrictions/Precautions Restrictions/Precautions: Fall Risk,Weight Bearing,Surgical Protocols Required Braces or Orthoses?: No Lower Extremity Weight Bearing Restrictions Left Lower Extremity Weight Bearing: Weight Bearing As Tolerated Position Activity Restriction Hip Precautions: Posterior hip precautions Subjective Pt initially working with OT. PT performed gait to BS (pt felt she could not make it to bathroom, then later tried to say OT told her she could not make it to bathroom). Pt very focused on pain and fatigue. Struggles with focus (see below). Pain primarily in L hip, fatigue in UEs. Cognition Cognition Cognition Comment: Pt recalled zero precautions, PT provided handout. She still struggled making functional sense of precautions. Very focused on non-functional items (was worried about her robe, with OT sat on BSC for approx 45 minutes as she was worried about being dry). Exhibited marked difficulty following sequencing for gait or even repeating when asked by PT. Objective In supine, performed JAYLEN protocol ex. Pt with approx 30 deg active heel slide (PT guiding LE to prevent rotation). SAQ indep from there. Quad set strong, Glut set good, Supported hip ABD approx 10 deg min of 1. In supine, however, pt allows L hip to I/R--PT placed pillows and blanket roll Sit to stand mod of 1 (performed from recliner and BSC) Amb w/ FWW, 10'x1, 12'x1--pt with tendency to forego sequencing, often taking additional R step. Ptalso often steps beyond front edge of walker. When PT attempts to help guide walker advance, pt notes she feels it is too far (in fact, PT estimate 4-6 not far enough) Sit to supine with complete assist of LLE, although pt can elevate RLE indep (pt could not scoot laterally or perform RLE bridge) AM-PAC Score [facility] Inpatient Mobility Raw Score : 8 (06/10/21 160) AM-[facility] Inpatient T-Scale Score : 28.52 (06/10/21 160) Mobility Inpatient CMS 0-100% Score: 86.62 (06/10/21 160) Mobility Inpatient CMS G-Code Modifier : CM (06/10/211603) Goals Short term goals Time Frame for Short term goals: 2 weeks Short term goal 1: Pt to perform bed mobility with stand by assist-progressing Short term goal 2: Pt to perform sit to stand transfers with min assist-progressing Short term goal 3: Pt to ambulate with least restrictive device x 50' with min assist-progressing Patient Goals Patient goals : to have less pain Plan Plan Times per week: 5-7 Plan weeks: 2 Current Treatment Recommendations: Strengthening,Transfer Training,Endurance Training,Patient/Caregiver Education & Training,Equipment Evaluation, Education, & procurement,Balance Training,Gait Training,Functional Mobility Training,Safety Education & Training,ROM Safety Devices Type of devices: All fall risk precautions in place,Patient at risk for falls,Left in bed,Call light within reach,Nurse notified,Gait belt,Bed alarm in place Restraints Initially in place: No Therapy Time Individual Concurrent Group Co-treatment Time In 1439 (also approx 3 minutes at approx 1355 of gait) Time Out 1502 Minutes 23 Patient s Physical Therapy Plan of Care supervision is transferred to [facility] Rehab Department Physical Therapist. PT wore N95 mask, goggles, and gloves throughout entire session with patient. Ian Seth PT * Kelly Yepez - 06/10/2021 3:18 PM EST Occupational Therapy Occupational Therapy Initial Assessment Date: 06/10/2021 Patient Name: Debra Cole : 1940 Date of Service: 06/10/2021 Discharge Recommendations: Subacute/Half-Way Facility Assessment Performance deficits / Impairments: Decreased endurance;Decreased coordination;Decreased ADL status;Decreased functional mobility ;Decreased sensation;Decreased posture;Decreased ROM;Decreased balance;Decreased strength;Decreased vision/visual deficit;Decreased safe awareness Assessment: OT eval completed. Pt potentially self-limited by fear of falling, potentially exacerbated by hx of recent falls and witnessing her fall multiple times before his passing. With max encouragement pt able to complete minimal OOB activity, requiring assist for basic ADLs and increased time and rest breaks to complete. Pt unsafe to return home and limited in completion of usual routine by posterior hip precautions. OT recommending SNF to maximize safety during ADL re-training and return to baseline independence. Prognosis: Good Decision Making: Medium Complexity OT Education: OT Role;Orientation;Plan of Care;Equipment;Precautions;Transfer Training Patient Education: deep breathing and imagery to mitigate fear of falling REQUIRES OT FOLLOW UP: Yes Activity Tolerance Activity Tolerance: Patient Tolerated treatment well;Treatment limited secondary to decreased cognition Safety Devices Safety Devices in place: Yes Type of devices: Gait belt (left ambulating BSC > bed with PT) Patient Diagnosis(es): The encounter diagnosis was Closed fracture of left hip requiring operative repair, initial encounter ([facility]). has a past medical history of Cerebral artery occlusion with cerebral infarction ([facility]), COPD (chronic obstructive pulmonary disease) ([facility]), and Hypertension. has a past surgical history that includes Cosmetic surgery and orif femur decompression (Left, 06/08/2021). 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 General Comment Comments: Pt found seated in chair. RN approved OT eval. Pt reluctant to participate but with max encouragement was agreeable to session. Patient Currently in Pain: (no c/o) Social/Functional History Social/Functional History Lives With: (son and son's girlfriend) Type of Home: House Home Layout: One level Home Access: Stairs to enter with rails Bathroom Shower/Tub: Tub/Shower unit (pt states she sponge bathes in her bed and has not used the tub/shower in a long time) Bathroom Toilet: (pt states she pees standing in a cup then puts it in a bucket) Home Equipment: Cane,Rolling walker (use of cane PRN; has stopped using walker) Receives Help From: Family ADL Assistance: Independent Homemaking Assistance: Independent Homemaking Responsibilities: No Ambulation Assistance: Needs assistance (son helps her walk around at night) Transfer Assistance: Independent Leisure & Hobbies: pt enjoys reading and listening to the radio Additional Comments: Pt lives with her son and his girlfriend in a one level home. Pt states she still does nearly all of the housework and cooking, but the son and girlfriend are there to assist PRNessentially 15/11. Pt has recently started to use a cane PRN, but identifies no DME use. Objective Vision: Impaired Vision Exceptions: Wears glasses at all times (pt stated Rx has changed since pt had covid a few months ago, so even with her glasses things are a little blurry) Hearing: Within functional limits Orientation Overall Orientation Status: (A&Ox3) Functional Mobility Functional - Mobility Device: Rolling Walker Activity: (chair to wall by counter for use of BSC) Assist Level: Moderate assistance Toilet Transfers Toilet - Technique: Ambulating Equipment Used: Standard bedside commode Toilet Transfer: Moderate assistance (use of FWW) Toilet Transfers Comments: Tx initiated: engaged in OOB ADL; pt required max verbal cues for functional mobility with FWW; transfer training ADL Toileting: (supervision for toileting; required increased time, pt stated this was due to nerves; modA to stand for luther-care) Additional Comments: Tx initiated: engaged in OOB ADL; pt required increased time and education on deep breathing and imagery to mitigate fear of falling; pt required increased time for toileting dueto nerves, provided environmental adaptations and made various other comfort options available for pt Tone RUE RUE Tone: Normotonic Tone LUE LUE Tone: Normotonic Coordination Movements Are Fluid And Coordinated: Yes Transfers Sit to stand: Moderate assistance Stand to sit: Moderate assistance Transfer Comments: use of FWW Cognition Cognition Comment: 0/3 precautions remembered initially, questionable understanding of precautions,but was able to maintain during session; pt expressed very persistent fear of falling - based on conversation with pt, potentially attributed to recent accidents herself, and of watching her fall over the years before his passing LUE PROM: WFL LUE AROM : WFL Left Hand PROM: WFL Left Hand AROM: WFL RUE PROM: WFL RUE AROM : WFL Right Hand PROM: WFL Right Hand AROM: WFL LUE Strength LUE Strength Comment: 3+/5 throughout UE; grasp strength increases over time initially poor but progressed to fair RUE Strength RUE Strength Comment: 3+/5 throughout UE; grasp strength increases over time initially poor but progressed to fair Plan Plan Times per week: 5x Plan weeks: 4 Current Treatment Recommendations: Strengthening,Gait Training,Patient/Caregiver Education & Training,ROM,Stair training,Equipment Evaluation, Education, & procurement,Balance Training,Functional Mobility Training,Cognitive Reorientation,Endurance Training,Pain Management,Cognitive/Perceptual Training,Safety Education & Training,Self-Care / ADL AM-PAC Score AM-PAC Daily Activity Inpatient How much help for putting on and taking off regular lower body clothing?: A Lot How much help for Bathing?: A Lot How much help for Toileting?: A Lot How much help for putting on and taking off regular upper body clothing?: None How much help for taking care of personal grooming?: None How much help for eating meals?: None AM-PAC Inpatient Daily Activity Raw Score: 18 AM-PAC Inpatient ADL T-Scale Score : 38.66 ADL Inpatient CMS 0-100% Score: 46.65 ADL Inpatient CMS G-Code Modifier : CK' Goals Short term goals Time Frame for Short term goals: 4 weeks Short term goal 1: LB dressing with Luis Enrique Short term goal 2: implement at least one coping strategy to mitigate fear of falling during ADLs/functional mobility with no verbal cues Short term goal 3: grooming task standing at sink with supervision and rest breaks PRN Short term goal 4: demo safe use of FWW during ADLs with min verbal cues Short term goal 5: maintain posterior hip precautions during ADLs with min verbal cues Patient Goals Patient goals : Pt wishes to get more therapy Therapy Time Individual Concurrent Group Co-treatment Time In 1336 Time Out 1440 Minutes 64 Timed Code Treatment Minutes: 15 Minutes (1- self) Variance: 34 (non-billable time: pt required increased time to complete toileting without need for hands-on assist) Patient's Occupational Therapy Plan [facility]. Goals and/or treatment plan was established in collaboration with patient/family/other representatives. Kelly Yepez S/OT * James Flood MD - 06/10/2021 1:00 PM EST [facility] Progress Note [facility] H6 TELEMETRY Patient: Debra Cole Unit/Bed: [facility]/[id number] Date of : 1940 Acct: [id number] Admitting Diagnosis: Closed fracture of left hip requiring operative repair, initial encounter ([facility]) [S72.002A] Admit Date: 06/05/2021 Hospital Day: 5 Subjective: Patient is having problems with Hyponatremia No acute events overnight AF, Blood Pressure stable UOP appropriate Scr improving No sob, orthopnea, no n/v/d Swelling improved Patient Seen, Chart, Labs, Radiology studies, and Consults reviewed. Objective: BP (!) 96/51 Pulse 74 Temp 98.6 F (37 C) (Temporal) Resp 16 Ht 5' 2 (1.575 m) Wt 88 lb (39.9 kg) SpO2 96% BMI 16.10 kg/m Intake/Output Summary (Last 24 hours) at 06/10/2021 1300 Last data filed at 06/10/2021 1130 Gross per 24 hour Intake 1000 ml Output 550 ml Net 450 ml Appearance: no acute distress, awake, cachectic frail elderly Eyes: clear conjunctiva, PERRL, pupils normal size ENT: hearing normal, MMM without oral thrush, no erythema or exudate on hard or soft palate, tonguenormal Neck: supple, no LAD, no thyromegaly Respiratory: breathing unlabored, lungs CTA B anteriorly without w/r/r Cardiovascular: heart RRR without m/g/r, pedal pulses palpable Gastrointestinal: abdomen soft, non-tender, non-distended, normoactive bowel sounds. No masses or hernia. Musculoskeletal: normal digits and nails without cyanosis or clubbing, no edema of BL LE Skin: warm and dry, no rash or wounds Neurologic: CN II-XII intact grossly BL, no myoclonus Psychiatric: alert and oriented to person/place/time, normal mood and range of affect Diet: ADULT DIET; Regular Medications: enoxaparin 40 mg SubCUTAneous Daily erythromycin Right Eye Q4H levothyroxine 75 mcg Oral Daily sodium chloride flush 5-40 mL IntraVENous 2 times per day [Held by provider] clopidogrel 75 mg Oral Daily lisinopril 20 mg Oral Daily metoprolol succinate 50 mg Oral Daily montelukast 10 mg Oral Nightly lidocaine 2 patch TransDERmal Daily acetaminophen 1,000 mg Oral TID trospium 20 mg Oral Nightly Continuous Infusions: sodium chloride PRN Meds:LORazepam, sodium chloride flush, sodium chloride, ondansetron OR ondansetron, polyethylene glycol, nicotine polacrilex, oxyCODONE OR oxyCODONE, HYDROmorphone DVT Prophylaxis: Data: CBC: Recent Labs 06/09/21 0019 06/10/21 011 WBC 8.5 9.7 RBC 2.93* 2.53* HGB 8.9* 7.7* HCT 27.1* 23.2* MCV 92.4 91.4 RDW 19.0* 18.6* PLT 250 338 BMP: Recent Labs 06/08/21 1324 06/09/21 0019 06/10/21 0116 NA 126* 135 132* K -- 3.7 4.6 CL -- 102 105 CO2 -- 26 27 BUN -- 27* 33* CREATININE -- 0.68 0.91 BNP: No results for input(s): BNP in the last 72 hours. PT/INR: No results for input(s): PROTIME, INR in the last 72 hours. APTT: No results for input(s): APTT in the last 72 hours. CARDIAC ENZYMES: No results for input(s): CKMB, CKMBINDEX, TROPONINT in the last 72 hours. Invalid input(s): CKTOTAL;3 FASTING LIPID PANEL:No results found for: CHOL, HDL, TRIG LIVER PROFILE: No results for input(s): AST, ALT, ALB, BILIDIR, BILITOT, ALKPHOS in the last 72 hours. ABGs: No results found for: PH, PCO2, PO2, HCO3, O2SAT Assessment/Plan: Debra Cole 81 y.o. year old female who we are seeing in consultation for hyponatremia. 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 intake +/- intravascular volume depletion #Hypertension #Left hip fracture #History of stroke #COPD not in acute exacerbation Plan/ - Sodium fluctuating, uop improved, BP stable - Volume status: approaching euvolemic Ok to stop IVF if ok intake. -Goal for sodium correction is 6-8 mEq per 24-hour, please notify nephrology on- call stat if sodiumovercorrects or starts to decline (<3 mEq). -Strict I's and O's -Encourage oral intake, especially protein intake for solute load (protein shakes/magic cups) -Okay to continue free water restriction to 1.5 L daily -Rest of management per primary team -We will continue to follow Thank you for asking us to participate in the management of your patient, please do not hesitate tocontact us for any concerns regarding my recommendations as outlined above. Please do no hesitate to call with any questions Pager [phone] * Krysten LAUREANO Hernandez - PERFORMANCE IMPROVEMENT CONSULTANT - 06/10/2021 10:03 AM EST PAGING: The Acute Pain Service providers are available via [employer]. Please reference [facility] for Pain Management Provider SALES AND BUSINESS DEVELOPMENT MANAGER and direct all questions to the provider listed. Please send pages as urgent from 9pm-7am if they require a response. All other pages will be addressed nextday, thank you. Due to the current environment of [place] [address], PPE was worn for the duration of all face to face encounters including but not limited to an N95 in accordance with [facility] and hospital guidelines. 06/10/2021 Referring Physician: Isaak Palma MD Subjective: We have been asked to see this 81 y.o. female for postoperative pain management s/p Procedure: L hemiarthroplasty on 06/08/21 Reviewed XR Left femur 06/08 NAEON, no pages. On arrival, pt sitting in bedside chair. Pt appears well, comfortable. Pt awaiting rehab placement.Pt talkative and cooperative throughout exam, happy with current pain regimen. Pain controlled. Tolerating diet, denies n/v. Patient educated on pain regimen, aware that oxycodone, dilaudid are PRN and patient must ask for these medications when needed. Realistic pain control discussed with patient: Not all pain will be taken away, but pain should be tolerable/manageable with current regimen. Pt instructed to have staff page APS if pain becomes uncontrolled when utilizing present regimen. Pt agreeable, denies further questions. PMH reviewed below Sedation score: 1: Awake and alert Pain Severity: Mild-moderate Pain Location: LLE Pain Quality: aching Aggravating Factors: Moving Alleviating Factors: Rest/Pain medications Social History Tobacco Use Smoking Status Former Smoker Smokeless Tobacco Current User Social History Substance and Sexual Activity Alcohol Use None Social History Substance and Sexual Activity Drug Use Not on file The patient's medical history and physical assessment, medications, allergies, patient's current medical condition, imaging, and labs were reviewed as part of this consultation. [x] Patient's Medications have been reviewed. [x] Patient's OARRS report (PDMP) have been reviewed. Overdose Risk Score 410 Filled Written Drug QTY Days Prescriber 05/26/2021 05/26/2021 Hydrocodone-Acetamin 5-[address] [facility] 05/26/2021 05/26/2021 Lorazepam 2 Mg Tablet 90.[address] [facility] 04/29/2021 04/29/2021 Hydrocodone-Acetamin 5-[address] [facility] 04/28/2021 04/28/2021 Lorazepam 2 Mg Tablet 90.[address] [facility] 03/26/2021 03/26/2021 Hydrocodone-Acetamin 5-[address] [facility] 03/23/2021 11/24/2020 Lorazepam 2 Mg Tablet 90.[address] [facility] 02/20/2021 02/20/2021 Hydrocodone-Acetamin 5-[address] [facility] 02/20/2021 02/20/2021 Lorazepam 2 Mg Tablet 90.[address] [facility] 01/21/2021 01/21/2021 Lorazepam 2 Mg Tablet 90.[address] [facility] 01/21/2021 01/21/2021 Hydrocodone-Acetamin 5-[address] [facility] 12/22/2020 12/19/2020 Hydrocodone-Acetamin 5-325 Mg 120.00 30 [facility] 12/22/2020 12/19/2020 Lorazepam 2 Mg Tablet 90.00 30 [facility] 11/23/2020 11/19/2020 Lorazepam 2 Mg Tablet 90.[address] [facility] 11/21/2020 11/19/2020 Hydrocodone-Acetamin 5-[address] [facility] 10/24/2020 10/24/2020 Hydrocodone-Acetamin 5-325 Mg Objective Findings: Height: 5' 2 (157.5 cm) Weight: 88 lb (39.9 kg) BMI (Calculated): 16.1 Vital signs: Blood pressure (!) 96/51, pulse 74, temperature 98.6 F (37 C), temperature source Temporal, resp. rate 16, height 5' 2 (1.575 m), weight 88 lb (39.9 kg), SpO2 96 %. Allergies: Demerol hcl [meperidine] Past Medical History: Diagnosis Date Cerebral artery occlusion with cerebral infarction (HCC) COPD (chronic obstructive pulmonary disease) (HCC) Hypertension Past Surgical History: Procedure Laterality Date COSMETIC SURGERY breast implants ORIF FEMUR DECOMPRESSION Left 06/08/2021 History reviewed. No pertinent family history. Patient Active Problem List Diagnosis Closed fracture of left hip requiring operative repair (HCC) Review of Systems Respiratory: Negative for shortness of breath. Cardiovascular: Negative for chest pain. Gastrointestinal: Negative for abdominal pain, nausea and vomiting. Musculoskeletal: Positive for arthralgias (LLE). Physical Exam Vitals and nursing note reviewed. Cardiovascular: Rate and Rhythm: Normal rate. Musculoskeletal: General: Tenderness (LLE) present. Neurological: Mental Status: She is alert and oriented to person, place, and time. Psychiatric: Behavior: Behavior normal. Behavior is cooperative. Pain Management Adjuvants: 0700 --> 0700 06/08/202106/09 Scheduled APAP 2000mg 3000mg Lidocaine patches on on PRN hydromorphone 0 0 oxycodone 10mg 15mg BLOCK: LEFT FI/Left GALI Lab Results Component Value Date/Time CREATININE 0.91 06/10/2021 01:16 AM AST 47 (H) 06/06/2021 01:33 AM ALT 20 06/06/2021 01:33 AM Assessment / Pain Management Plan: 1. Left hip fracture Left hemiarthroplasty on 06/08/21 2. Acute Postsurgical LLE pain Multimodal pain regimen: Continue Acetaminophen 1000 mg po TID scheduled ATC. Continue Lidocaine patches x 2. Cut and place as needed. Continue Oxycodone 2.5 - 5 mg po q4h prn moderate to severe breakthrough pain. Continue Hydromorphone 0.25 mg IVP q4h prn moderate to severe breakthrough pain. Please utilize oral medications first. Block partially intact 3. Constipation At risk for opioid induced constipation Patient currently receiving opioids for pain management necessitating a bowel regimen. Recommend initiating scheduled Sennakot-S 8.6/50mg, 1 tablet PO BID. Would also recommend Milk of Magnesia 400mg/5ml, administer 30mL by mouth daily PRN. 4. Opioid Use Acute: Expected to be short term postop pain, see #1 OARRS reviewed for past two years. (monthly narcotic RX filled consistently, last filled: 05/26/21) Reviewed and educated patient on responsible use of opioids: after surgery, it can be normal to experience pain. If it is mild and you can move about without great difficulty or discomfort, you may not need to take pain medication. It is very important to take your pain medication only as needed. Avoiding excessive or unnecessary medication, will enable you to progress your activity each day to improve your muscle tone and movement, deep breathing, digestion, circulation and your body's abilityto heal itself. Patient pain is well controlled at this time on current pain regimen. We will sign off at this time. Please re-consult our service if patient's pain becomes uncontrolled. Thank you for inviting us toparticipate in the care of this patient. Plan discussed with patient who appears to understand and agrees. PAGING: The Acute Pain Service providers are available via [employer]. Please reference [facility] for Pain Management Provider SALES AND BUSINESS DEVELOPMENT MANAGER and direct all questions to the provider listed. Please send pages as urgent from 9pm-7am if they require a response. All other pages will be addressed nextday, thank you. * Malena Valdes RN - 06/10/2021 8:39 AM EST Patient refused Plavix this morning. Patient told RN that her PCP always told her to wait 5 days after any surgery before taking. Patient educated that since she already had surgery it would be okay for her to take it now and informed patient that the MD's in the hospital had said it was okay. Patient continued to refused. Dr. Redd made aware. * Heri Redd DO - 06/10/2021 8:36 AM EST [facility] hospitalist Hospitalist Progress Note 06/10/2021 2:36 PM 7 PM to 7 AM, please contact [facility] hospitalist avionics technician for any needs Subjective: Admit Date: 06/05/2021 PCP: Jamie Boateng Interval History: No overnight issues. Hemoglobin dropped but still above 7. Patient is hemodynamically stable. ADULT DIET; Regular I/O last 3 completed shifts: In: 1000 [P.O.:1000] Out: 400 [Urine:400] Date 06/10/21 - 06/10/21 235 Shift 9124-3945 9743-0820 2008-6041 24 Hour Total INTAKE Shift Total(mL/kg) OUTPUT Urine(mL/kg/hr) 150 150 Shift Total(mL/kg) 150(3.8) 150(3.8) Weight (kg) 39.9 39.9 39.9 39.9 Patient Vitals for the past 96 hrs (Last 3 readings): Weight 06/08/21 1257 88 lb (39.9 kg) Medications: sodium chloride enoxaparin 40 mg SubCUTAneous Daily erythromycin Right Eye Q4H levothyroxine 75 mcg Oral Daily sodium chloride flush 5-40 mL IntraVENous 2 times per day [Held by provider] clopidogrel 75 mg Oral Daily lisinopril 20 mg Oral Daily metoprolol succinate 50 mg Oral Daily montelukast 10 mg Oral Nightly lidocaine 2 patch TransDERmal Daily acetaminophen 1,000 mg Oral TID trospium 20 mg Oral Nightly Recent Labs 06/09/21 0019 06/10/21 0116 WBC 8.5 9.7 HGB 8.9* 7.7* PLT 250 338 Recent Labs 06/08/21 1324 06/09/21 0019 06/10/21 0116 NA 126* 135 132* K -- 3.7 4.6 CL -- 102 105 CO2 -- 26 27 BUN -- 27* 33* CREATININE -- 0.68 0.91 GLUCOSE -- 223* 101* No results for input(s): AST, ALT, ALB, BILITOT, ALKPHOS in the last 72 hours. No results found for: TRIG, HDL, LDLCALC, CHOL No results found for: PHART, PO2ART, JWT4IDI No results for input(s): INR in the last 72 hours. No results for input(s): CKTOTAL, CKMB, TROPONINI in the last 72 hours. No results for input(s): DDIMER in the last 72 hours. No components found for: HGBA1C No results found for: TSH Urine Culture: No results found for this or any previous visit. Objective: Vitals: BP (!) 96/51 Pulse 74 Temp 98.6 F (37 C) (Temporal) Resp 16 Ht 5' 2 (1.575 m) Wt88 lb (39.9 kg) SpO2 96% BMI 16.10 kg/m Pulse Ox: SpO2 Av.7 % Min: 85 % Max: 100 % Supplemental O2: O2 Flow Rate (L/min): 2 L/min General appearance: alert and cooperative with exam Lungs: clear to auscultation bilaterally Heart: regular rate and rhythm, S1, S2 normal, no murmur, click, rub or gallop Abdomen: soft, non-tender; bowel sounds normal; no masses, no organomegaly Extremities: extremities normal, atraumatic, no cyanosis or edema Neurologic: No obvious focal neurologic deficits. Assessment Left hip fracture S/p mechanical fall Hyponatremia Past Medical History []Expand by Default Diagnosis Date Cerebral artery occlusion with cerebral infarction (HCC) COPD (chronic obstructive pulmonary disease) (HCC) Hypertension PLAN: 06/07: Patient presented after a fall and was found to have left hip fracture. Seen by Ortho and plan for surgery on Thursday 06/08 Continue with DVT prophylaxis with Lovenox, hold this PM Pain control. Pain management following Na 126 -?SIADH due to pain. Cont with PO fluid restriction. Nephrology consulted. Monitor Na level closely and avoid rapid correction. 06/08 Patient is going to the OR today for hip surgery by Ortho Medically Sodium is 129, being followed by broadcast program director. Monitor potassium and renal function Avoid rapid sodium correction Check CBC in the morning 06/09 Patient is doing well. She tolerated her procedure a from yesterday Diet started Sodium is 135 Hemoglobin dropped, will monitor, no signs of bleeding. Likely related to surgery. No new symptoms.Expected postop pain. PT/OT-recommending ECF Ophthalmology evaluated for corneal abrasion, ointment prescribed. Likely ECF soon 06/10 Her hemoglobin dropped but still above 7, she has bleeding at the site of her surgery. Hold Plavix We will resume DVT prophylaxis for now and check CBC in the morning We will monitor in the hospital until her blood counts are stable 7 PM to 7 AM, please contact [facility] hospitalist avionics technician for any needs Heri Redd DO [facility] Hospitalist * Latoya Love PA-C - 06/10/2021 7:25 AM EST Per most recent ocular care technologist note, patient will plan to be discharged to [facility]. Will defer follow up appointment management with Dr. Catherine to Chavez Rice PA-C at this time. * Josi Bhatti MD - 06/10/2021 6:24 AM EST Images from the original note were not included. Department of Orthopedic Surgery Progress Note SUBJECTIVE: No acute events overnight. Resting comfortably in bed. Pain controlled. Denies new paresthesias. OBJECTIVE: General: alert and oriented to person, place and time, well-developed and well- nourished, in no acute distress VITALS: BP (!) 96/51 Pulse 81 Temp 98.6 F (37 C) (Temporal) Resp 16 Ht 5' 2 (1.575 m) Wt88 lb (39.9 kg) SpO2 96% BMI 16.10 kg/m MSK exam: LLE: Dressing saturated SILT s/s/sp/dp/t +motor DF/PF/EHL Palp DP pulse Labs: CBC: Lab Results Component Value Date WBC 9.7 06/10/2021 RBC 2.53 06/10/2021 HGB 7.7 06/10/2021 HCT 23.2 06/10/2021 MCV 91.4 06/10/2021 MCH 30.4 06/10/2021 MCHC 33.2 06/10/2021 RDW 18.6 06/10/2021 PLT 338 06/10/2021 MPV 8.0 06/10/2021 Type and Screen: Lab Results Component Value Date LABABO O 06/06/2021 RH NEG 06/06/2021 LABANTI POS 06/06/2021 INR: Lab Results Component Value Date INR 1.1 06/06/2021 CRP: No results found for: CRP ESR: No results found for: SEDRATE ASSESSMENT AND PLAN: This is a 81 y.o. female with L FNFx + ipsilateral IT fx with previous femoral neck malunion No plan for RTOR Dressings changed on rounds, ok to change PRN for saturation HgB 7.7 this AM, will defer any transfusion to primary team WBAT LLE PT/OT Posterior hip precautions Neuro/skin checks DVT ppx per 1 team Pain/medical management per 1 F/u 2 weeks, info in AVS Ortho to sign off, please page avionics technician resident with questions/concerns Josi Bhatti MD PGY-2, Orthopaedic Surgery 06/10/2021 .6:24 AM * Heri Redd, - 06/09/2021 1:20 PM EST [facility] hospitalist Hospitalist Progress Note 06/09/2021 1:50 PM 7 PM to 7 AM, please contact [facility] hospitalist avionics technician for any needs Subjective: Admit Date: 06/05/2021 PCP: Jamie Boateng Interval History: No overnight issues. ADULT DIET; Regular I/O last 3 completed shifts: In: 1010 [P.O.:360; I.V.:650] Out: 850 [Urine:750; Blood:100] Patient Vitals for the past 96 hrs (Last 3 readings): Weight 06/08/21 1257 88 lb (39.9 kg) Medications: sodium chloride 75 mL/hr at 06/08/21 1429 sodium chloride enoxaparin 40 mg SubCUTAneous Daily erythromycin Right Eye Q4H levothyroxine 75 mcg Oral Daily sodium chloride flush 5-40 mL IntraVENous 2 times per day clopidogrel 75 mg Oral Daily lisinopril 20 mg Oral Daily metoprolol succinate 50 mg Oral Daily montelukast 10 mg Oral Nightly lidocaine 2 patch TransDERmal Daily acetaminophen 1,000 mg Oral TID trospium 20 mg Oral Nightly Recent Labs 06/07/21 0028 06/09/21 0019 WBC 7.8 8.5 HGB 10.2* 8.9* PLT 258 250 Recent Labs 06/06/21 1621 06/06/21 1621 06/07/21 0028 06/07/21 1335 06/08/21 0607 06/08/21 1324 06/09/21 0019 NA 129* < > 126* < > 129* 126* 135 K 4.1 -- 4.3 -- -- -- 3.7 CL 94* -- 96* -- -- -- 102 CO2 34* -- 29 -- -- -- 26 BUN 25* -- 31* -- -- -- 27* CREATININE 0.91 -- 0.95 -- -- -- 0.68 GLUCOSE 94 -- 107* -- -- -- 223* < > = values in this interval not displayed. No results for input(s): AST, ALT, ALB, BILITOT, ALKPHOS in the last 72 hours. No results found for: TRIG, HDL, LDLCALC, CHOL No results found for: PHART, PO2ART, VPD6IOF No results for input(s): INR in the last 72 hours. No results for input(s): CKTOTAL, CKMB, TROPONINI in the last 72 hours. No results for input(s): DDIMER in the last 72 hours. No components found for: HGBA1C No results found for: TSH Urine Culture: No results found for this or any previous visit. Objective: Vitals: BP (!) 94/46 Pulse 78 Temp 99.6 F (37.6 C) (Temporal) Resp 16 Ht 5' 2 (1.575 m) Wt 88 lb (39.9 kg) SpO2 97% BMI 16.10 kg/m Pulse Ox: SpO2 Av % Min: 91 % Max: 100 % Supplemental O2: O2 Flow Rate (L/min): 4 L/min General appearance: alert and cooperative with exam Lungs: clear to auscultation bilaterally Heart: regular rate and rhythm, S1, S2 normal, no murmur, click, rub or gallop Abdomen: soft, non-tender; bowel sounds normal; no masses, no organomegaly Extremities: extremities normal, atraumatic, no cyanosis or edema Neurologic: No obvious focal neurologic deficits. Assessment Left hip fracture S/p mechanical fall Hyponatremia Past Medical History []Expand by Default Diagnosis Date Cerebral artery occlusion with cerebral infarction (HCC) COPD (chronic obstructive pulmonary disease) (HCC) Hypertension PLAN: 06/07: Patient presented after a fall and was found to have left hip fracture. Seen by Ortho and plan for surgery on Thursday 06/08 Continue with DVT prophylaxis with Lovenox, hold this PM Pain control. Pain management following Na 126 -?SIADH due to pain. Cont with PO fluid restriction. Nephrology consulted. Monitor Na level closely and avoid rapid correction. 06/08 Patient is going to the OR today for hip surgery by Ortho Medically Sodium is 129, being followed by broadcast program director. Monitor potassium and renal function Avoid rapid sodium correction Check CBC in the morning 06/09 Patient is doing well. She tolerated her procedure a from yesterday Diet started Sodium is 135 Hemoglobin dropped, will monitor, no signs of bleeding. Likely related to surgery. No new symptoms.Expected postop pain. PT/OT-recommending ECF Ophthalmology evaluated for corneal abrasion, ointment prescribed. Likely ECF soon 7 PM to 7 AM, please contact [facility] hospitalist avionics technician for any needs Heri Redd DO [facility] * Paula Javi Garcia, PT - 06/09/2021 12:30 PM EST Physical Therapy Facility/Department: [facility] Initial Assessment NAME: Debra Cole : 1940 Date of Service: 06/09/2021 Discharge Recommendations: Subacute/[facility] PT Equipment Recommendations Equipment Needed: No Assessment Body structures, Functions, Activity limitations: Decreased functional mobility ;Decreased endurance;Decreased strength;Decreased balance;Increased pain Assessment: Pt presents s/p L hip hemiarthroplasty on 06/08. Pt with increased hip pain with mobility and requires mod assist for bed mobility and max assist to stand from EOB. Pt requires increased time with all functional mobility. Pt with difficulty understanding and remembering posterior hip precautions. Discharge recommendation to SNF. Prognosis: Good Decision Making: Medium Complexity PT Education: Goals;PT Role;Plan of Care;General Safety;Precautions REQUIRES PT FOLLOW UP: Yes Activity Tolerance Activity Tolerance: Patient limited by pain;Patient limited by fatigue;Patient limited by endurance Patient Diagnosis(es): The encounter diagnosis was Closed fracture of left hip requiring operative repair, initial encounter ([facility]). has a past medical history of Cerebral artery occlusion with cerebral infarction ([facility]), COPD (chronic obstructive pulmonary disease) ([facility]), and Hypertension. has a past surgical history that includes Cosmetic surgery and orif femur decompression (Left, 06/08/2021). Restrictions Restrictions/Precautions Restrictions/Precautions: Fall Risk,Weight Bearing,Surgical Protocols Required Braces or Orthoses?: No Lower Extremity Weight Bearing Restrictions Left Lower Extremity Weight Bearing: Weight Bearing As Tolerated Position Activity Restriction Hip Precautions: Posterior hip precautions Subjective General Chart Reviewed: Yes Patient assessed for rehabilitation services?: Yes Family / Caregiver Present: No Diagnosis: s/p hemiarthroplasty of left hip, Open reduction internal fixation of left greater trochanteric/peritrochanteric femur fracture on 06/08 Follows Commands: Within Functional Limits General Comment Comments: esparza, IV, posterior hip precautions Subjective Subjective: Pt presents supine in bed and agreeable to PT. Pain Screening Patient Currently in Pain: Yes Pain Assessment Pain Assessment: 0-10 Pain Level: 7 Pain Type: Acute pain;Surgical pain Pain Location: Hip Pain Orientation: Left Vital Signs Patient Currently in Pain: Yes Pre Treatment Pain Screening Intervention List: Patient able to continue with treatment;Nurse/physician notified Social/Functional History Social/Functional History Lives With: Son Type of Home: House Home Layout: One level Home Access: Level entry Bathroom Shower/Tub: Tub/Shower unit Bathroom Toilet: Standard Bathroom Accessibility: Accessible Home Equipment: Cane Receives Help From: Family Homemaking Responsibilities: No Ambulation Assistance: Independent Transfer Assistance: Independent Active Motor Scooter Mechanic: No Mode of Transportation: Car Objective AROM RLE (degrees) RLE AROM: WFL AROM LLE (degrees) LLE AROM : WFL LLE General AROM: within hip precautions, painful Strength RLE Strength RLE: WFL Comment: grossly 3+/5 Strength LLE Strength LLE: WFL Comment: grossly 3/5, painful Bed mobility Supine to Sit: Moderate assistance Sit to Supine: Moderate assistance Scooting: Moderate assistance Comment: Use of drawsheet, pt with pain during movement. Increased time to complete. Pt able to assist and perform supine bridge single leg and use BUE to scoot up in bed. Transfers Sit to Stand: Maximum Assistance Stand to sit: Maximum Assistance Comment: Pt able to stand from EOB with max assist. Pt requires increased time to complete. Ambulation Ambulation?: No Stairs/Curb Stairs?: No Balance Sitting - Static: Good Sitting - Dynamic: Good;- Standing - Static: Poor Plan Plan Times per week: 4-5 Plan weeks: 2 Current Treatment Recommendations: Strengthening,Transfer Training,Endurance Training,Patient/Caregiver Education & Training,ADL/Self-care Training,Equipment Evaluation, Education, & procurement,Balance Training,Gait Training,Functional Mobility Training,Safety Education & Training Safety Devices Type of devices: All fall risk precautions in place,Patient at risk for falls,Left in bed,Call light within reach,Nurse notified,Gait belt,Bed alarm in place Restraints Initially in place: No AM-PAC Score AM-PAC Inpatient Mobility Raw Score : 6 (06/09/211228) AM-PAC Inpatient T-Scale Score : 23.55 (06/09/211228) Mobility Inpatient CMS 0-100% Score: 100 (06/09/211228) Mobility Inpatient [facility] G-Code Modifier : CN (06/09/211228) Goals Short term goals Time Frame for Short term goals: 2 weeks Short term goal 1: Pt to perform bed mobility with stand by assist Short term goal 2: Pt to perform sit to stand transfers with min assist Short term goal 3: Pt to ambulate with least restrictive device x 50' with min assist Patient Goals Patient goals : to have less pain Therapy Time Individual Concurrent Group Co-treatment Time In 1107 Time Out 1129 Minutes 22 This PT wore a mask, face shield & gloves during entire PT eval/Rx. Goals and/or treatment plan was established in collaboration with patient/family/other representatives. Patient s Physical Therapy Plan of Care supervision is transferred to [facility] Physical Therapist. Paula Garcia PT * James Flood MD - 06/09/2021 12:10 PM EST [facility] Progress Note [facility] TELEMETRY Patient: Debra Cole Unit/Bed: [id number] Date of : 1940 Acct: [id number] Admitting Diagnosis: Closed fracture of left hip requiring operative repair, initial encounter ([facility]) [S72.002A] Admit Date: 06/05/2021 Hospital Day: 4 Subjective: Patient is having problems with Hyponatremia No acute events overnight AF, Blood Pressure stable UOP appropriate Scr improving No sob, orthopnea, no n/v/d Swelling improved Patient Seen, Chart, Labs, Radiology studies, and Consults reviewed. Objective: BP (!) 101/55 Pulse 89 Temp 99.3 F (37.4 C) (Temporal) Resp 18 Ht 5' 2 (1.575 m) Wt 88 lb (39.9 kg) SpO2 94% BMI 16.10 kg/m Intake/Output Summary (Last 24 hours) at 06/09/2021 1210 Last data filed at 06/08/2021 1846 Gross per 24 hour Intake 650 ml Output 500 ml Net 150 ml Appearance: no acute distress, awake, cachectic frail elderly Eyes: clear conjunctiva, PERRL, pupils normal size ENT: hearing normal, MMM without oral thrush, no erythema or exudate on hard or soft palate, tonguenormal Neck: supple, no LAD, no thyromegaly Respiratory: breathing unlabored, lungs CTA B anteriorly without w/r/r Cardiovascular: heart RRR without m/g/r, pedal pulses palpable Gastrointestinal: abdomen soft, non-tender, non-distended, normoactive bowel sounds. No masses or hernia. Musculoskeletal: normal digits and nails without cyanosis or clubbing, no edema of BL LE Skin: warm and dry, no rash or wounds Neurologic: CN II-XII intact grossly BL, no myoclonus Psychiatric: alert and oriented to person/place/time, normal mood and range of affect Diet: ADULT DIET; Regular Medications: enoxaparin 40 mg SubCUTAneous Daily ceFAZolin 2,000 mg IntraVENous Q8H erythromycin Right Eye Q4H levothyroxine 75 mcg Oral Daily sodium chloride flush 5-40 mL IntraVENous 2 times per day clopidogrel 75 mg Oral Daily lisinopril 20 mg Oral Daily metoprolol succinate 50 mg Oral Daily montelukast 10 mg Oral Nightly lidocaine 2 patch TransDERmal Daily acetaminophen 1,000 mg Oral TID trospium 20 mg Oral Nightly Continuous Infusions: sodium chloride 75 mL/hr at 06/08/21 1429 sodium chloride PRN Meds:LORazepam, sodium chloride flush, sodium chloride, ondansetron OR ondansetron, polyethylene glycol, nicotine polacrilex, oxyCODONE OR oxyCODONE, HYDROmorphone DVT Prophylaxis: Data: CBC: Recent Labs 06/07/21 0028 06/09/21 0019 WBC 7.8 8.5 RBC 3.38* 2.93* HGB 10.2* 8.9* HCT 30.5* 27.1* MCV 90.0 92.4 RDW 18.4* 19.0* PLT 258 250 BMP: Recent Labs 06/06/21 1621 06/06/21 1621 06/07/21 0028 06/07/21 1335 06/08/21 0607 06/08/21 1324 06/09/21 0019 NA 129* < > 126* < > 129* 126* 135 K 4.1 -- 4.3 -- -- -- 3.7 CL 94* -- 96* -- -- -- 102 CO2 34* -- 29 -- -- -- 26 BUN 25* -- 31* -- -- -- 27* CREATININE 0.91 -- 0.95 -- -- -- 0.68 < > = values in this interval not displayed. BNP: No results for input(s): BNP in the last 72 hours. PT/INR: No results for input(s): PROTIME, INR in the last 72 hours. APTT: No results for input(s): APTT in the last 72 hours. CARDIAC ENZYMES: No results for input(s): CKMB, CKMBINDEX, TROPONINT in the last 72 hours. Invalid input(s): CKTOTAL;3 FASTING LIPID PANEL:No results found for: CHOL, HDL, TRIG LIVER PROFILE: No results for input(s): AST, ALT, ALB, BILIDIR, BILITOT, ALKPHOS in the last 72 hours. ABGs: No results found for: PH, PCO2, PO2, HCO3, O2SAT Assessment/Plan: Debra Cole 81 y.o. year old female who we are seeing in consultation for hyponatremia. 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 intake +/- intravascular volume depletion #Hypertension #Left hip fracture #History of stroke #COPD not in acute exacerbation Plan/ - Sodium improved, uop improved, BP stable - Volume status: approaching euvolemic but still with poor intake. Will cont IVF. - Repeating urine studies,consistent with volume depletion. -Goal for sodium correction is 6-8 mEq per 24-hour, please notify nephrology on- call stat if sodiumovercorrects or starts to decline (<3 mEq). -Strict I's and O's -Encourage oral intake, especially protein intake for solute load (protein shakes/magic cups) -Okay to continue free water restriction to 1.5 L daily -Rest of management per primary team -We will continue to follow Thank you for asking us to participate in the management of your patient, please do not hesitate tocontact us for any concerns regarding my recommendations as outlined above. Please do no hesitate to call with any questions Pager [phone] * Josi Bhatti MD - 06/09/2021 6:19 AM EST Images from the original note were not included. Department of Orthopedic Surgery Progress Note SUBJECTIVE: No acute events overnight. Resting comfortably in bed. Pain controlled. Denies new paresthesias. OBJECTIVE: General: alert and oriented to person, place and time, well-developed and well- nourished, in no acute distress VITALS: BP 112/60 Pulse 74 Temp 97.7 F (36.5 C) (Temporal) Resp 18 Ht 5' 2 (1.575 m) Wt 88 lb (39.9 kg) SpO2 91% BMI 16.10 kg/m MSK exam: LLE: Dressing c/d/i SILT s/s/sp/dp/t +motor DF/PF/EHL Palp DP pulse Labs: CBC: Lab Results Component Value Date WBC 8.5 06/09/2021 RBC 2.93 06/09/2021 HGB 8.9 06/09/2021 HCT 27.1 06/09/2021 MCV 92.4 06/09/2021 MCH 30.5 06/09/2021 MCHC 33.0 06/09/2021 RDW 19.0 06/09/2021 PLT 250 06/09/2021 MPV 8.3 06/09/2021 Type and Screen: Lab Results Component Value Date LABABO O 06/06/2021 RH NEG 06/06/2021 LABANTI POS 06/06/2021 INR: Lab Results Component Value Date INR 1.1 06/06/2021 CRP: No results found for: CRP ESR: No results found for: SEDRATE ASSESSMENT AND PLAN: This is a 81 y.o. female with L FNFx + ipsilateral IT fx with previous femoral neck malunion No plan for RTOR XR complete Ancef x24H, in progress WBAT LLE PT/OT HgB 8.9, CTM Posterior hip precautions Neuro/skin checks DVT ppx per 1 team Pain/medical management per 1 Ortho to follow Josi Bhatti MD PGY-2, Orthopaedic Surgery 06/09/2021 .6:19 AM * Heri Redd, DO - 06/08/2021 3:16 PM EST [facility] hospitalist Hospitalist Progress Note 06/08/2021 3:16 PM 7 PM to 7 AM, please contact [facility] hospitalist avionics technician for any needs Subjective: Admit Date: 06/05/2021 PCP: Jamie Boateng Interval History: No overnight issues. Diet NPO Exceptions are: Sips of Water with Meds I/O last 3 completed shifts: In: 600 [P.O.:600] Out: 700 [Urine:700] Date 06/08/21 0000 - 06/08/21 2359 Shift [id number] 0351-9908 24 Hour Total INTAKE P.O. 300 60 360 Shift Total(mL/kg) 300 60(1.5) 360(9) OUTPUT Urine 350 350 Shift Total(mL/kg) 350 350(8.8) Weight (kg) 39.9 39.9 39.9 Patient Vitals for the past 96 hrs (Last 3 readings): Weight 06/08/21 1257 88 lb (39.9 kg) Medications: [JUN Hold] sodium chloride 75 mL/hr at 06/08/21 1429 [JUN Hold] sodium chloride sodium chloride 500 mL IntraVENous Once [JUN Hold] levothyroxine 75 mcg Oral Daily [JUN Hold] sodium chloride flush 5-40 mL IntraVENous 2 times per day [JUN Hold] clopidogrel 75 mg Oral Daily [JUN Hold] lisinopril 20 mg Oral Daily [JUN Hold] metoprolol succinate 50 mg Oral Daily [JUN Hold] montelukast 10 mg Oral Nightly [JUN Hold] lidocaine 2 patch TransDERmal Daily [JUN Hold] acetaminophen 1,000 mg Oral TID [JUN Hold] trospium 20 mg Oral Nightly Recent Labs 06/06/2113206/07/218 WBC 8.7 7.8 HGB 11.2* 10.2* PLT 321 258 Recent Labs 06/06/2113206/06/21 01306/06/21 1621 06/06/21 1621 06/07/21 0028 06/07/21 1335 06/07/21 2102 06/08/21 0607 06/08/21 1324 NA 126* < > 129* < > 126* < > 130* 129* 126* K 4.8 -- 4.1 -- 4.3 -- -- -- -- CL 95* -- 94* -- 96* -- -- -- -- CO2 27 -- 34* -- 29 -- -- -- -- BUN 21* -- 25* -- 31* -- -- -- -- CREATININE 0.67 -- 0.91 -- 0.95 -- -- -- -- GLUCOSE 86 -- 94 -- 107* -- -- -- -- < > = values in this interval not displayed. Recent Labs 06/06/21132 AST 47* ALT 20 BILITOT 1.2 ALKPHOS 74 No results found for: TRIG, HDL, LDLCALC, CHOL No results found for: PHART, PO2ART, [id number] Recent Labs 06/06/21132 INR 1.1 No results for input(s): CKTOTAL, CKMB, TROPONINI in the last 72 hours. No results for input(s): DDIMER in the last 72 hours. No components found for: HGBA1C No results found for: TSH Urine Culture: No results found for this or any previous visit. Objective: Vitals: BP 119/60 Pulse 70 Temp 98.5 F (36.9 C) (Temporal) Resp 16 Ht 5' 2 (1.575 m) Wt 88 lb (39.9 kg) SpO2 97% BMI 16.10 kg/m Pulse Ox: SpO2 Av.5 % Min: 96 % Max: 97 % Supplemental O2: General appearance: alert and cooperative with exam Lungs: clear to auscultation bilaterally Heart: regular rate and rhythm, S1, S2 normal, no murmur, click, rub or gallop Abdomen: soft, non-tender; bowel sounds normal; no masses, no organomegaly Extremities: extremities normal, atraumatic, no cyanosis or edema Neurologic: No obvious focal neurologic deficits. Assessment Left hip fracture S/p mechanical fall Hyponatremia Past Medical History []Expand by Default Diagnosis Date Cerebral artery occlusion with cerebral infarction ([facility]) COPD (chronic obstructive pulmonary disease) ([facility]) Hypertension PLAN: 06/07: Patient presented after a fall and was found to have left hip fracture. Seen by Ortho and plan for surgery on Thursday 06/08 Continue with DVT prophylaxis with Lovenox, hold this PM Pain control. Pain management following Na 126 -?SIADH due to pain. Cont with PO fluid restriction. Nephrology consulted. Monitor Na level closely and avoid rapid correction. 06/08 Patient is going to the OR today for hip surgery by Ortho Medically Sodium is 129, being followed by broadcast program director. Monitor potassium and renal function Avoid rapid sodium correction Check CBC in the morning 7 PM to 7 AM, please contact [facility] hospitalist avionics technician for any needs Heri Redd DO [facility] Hospitalist * James Flood MD - 06/08/2021 12:44 PM EST [facility] Progress Note [facility] H[facility] TELEMETRY Patient: Debra Cole Unit/Bed: [facility]209096 Date of : 1940 Acct: [id number] Admitting Diagnosis: Closed fracture of left hip requiring operative repair, initial encounter ([facility]) [S72.002A] Admit Date: 06/05/2021 Hospital Day: 3 Subjective: Patient is having problems with Hyponatremia No acute events overnight AF, Blood Pressure stable UOP appropriate Scr improving No sob, orthopnea, no n/v/d Swelling improved Patient Seen, Chart, Labs, Radiology studies, and Consults reviewed. Objective: BP 119/60 Pulse 70 Temp 98.5 F (36.9 C) (Temporal) Resp 16 SpO2 97% Intake/Output Summary (Last 24 hours) at 06/08/2021 1244 Last data filed at 06/08/2021 0930 Gross per 24 hour Intake 360 ml Output 400 ml Net -40 ml Appearance: no acute distress, awake, cachectic frail elderly Eyes: clear conjunctiva, PERRL, pupils normal size ENT: hearing normal, MMM without oral thrush, no erythema or exudate on hard or soft palate, tonguenormal Neck: supple, no LAD, no thyromegaly Respiratory: breathing unlabored, lungs CTA B anteriorly without w/r/r Cardiovascular: heart RRR without m/g/r, pedal pulses palpable Gastrointestinal: abdomen soft, non-tender, non-distended, normoactive bowel sounds. No masses or hernia. Musculoskeletal: normal digits and nails without cyanosis or clubbing, no edema of BL LE Skin: warm and dry, no rash or wounds Neurologic: CN II-XII intact grossly BL, no myoclonus Psychiatric: alert and oriented to person/place/time, normal mood and range of affect Diet: Diet NPO Exceptions are: Sips of Water with Meds Medications: levothyroxine 75 mcg Oral Daily sodium chloride flush 5-40 mL IntraVENous 2 times per day clopidogrel 75 mg Oral Daily lisinopril 20 mg Oral Daily metoprolol succinate 50 mg Oral Daily montelukast 10 mg Oral Nightly lidocaine 2 patch TransDERmal Daily acetaminophen 1,000 mg Oral TID trospium 20 mg Oral Nightly Continuous Infusions: sodium chloride PRN Meds:LORazepam, sodium chloride flush, sodium chloride, ondansetron OR ondansetron, polyethylene glycol, nicotine polacrilex, oxyCODONE OR oxyCODONE, HYDROmorphone DVT Prophylaxis: Data: CBC: Recent Labs 06/06/21 0133 06/07/21 0028 WBC 8.7 7.8 RBC 3.83 3.38* HGB 11.2* 10.2* HCT 34.6* 30.5* MCV 90.3 90.0 RDW 18.0* 18.4* PLT 321 258 BMP: Recent Labs 06/06/21 0133 06/06/21 0133 06/06/21 1621 06/06/21 1621 06/07/21 0028 06/07/21 0028 06/07/21 1335 06/07/21 2102 06/08/21 0607 NA 126* < > 129* < > 126* < > 129* 130* 129* K 4.8 -- 4.1 -- 4.3 -- -- -- -- CL 95* -- 94* -- 96* -- -- -- -- CO2 27 -- 34* -- 29 -- -- -- -- BUN 21* -- 25* -- 31* -- -- -- -- CREATININE 0.67 -- 0.91 -- 0.95 -- -- -- -- < > = values in this interval not displayed. BNP: No results for input(s): BNP in the last 72 hours. PT/INR: Recent Labs 06/06/21132 PROTIME 11.3 INR 1.1 APTT: No results for input(s): APTT in the last 72 hours. CARDIAC ENZYMES: No results for input(s): CKMB, CKMBINDEX, TROPONINT in the last 72 hours. Invalid input(s): CKTOTAL;3 FASTING LIPID PANEL:No results found for: CHOL, HDL, TRIG LIVER PROFILE: Recent Labs 06/06/21132 AST 47* ALT 20 BILITOT 1.2 ALKPHOS 74 ABGs: No results found for: PH, PCO2, PO2, HCO3, O2SAT Assessment/Plan: Debra Cole 81 y.o. year old female who we are seeing in consultation for hyponatremia. 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 intake +/- intravascular volume depletion #Hypertension #Left hip fracture #History of stroke #COPD not in acute exacerbation Plan/ - Sodium levels fluctuating, ok uop, BP stable - Volume status: - Repeating urine studies, noted prior results consistent with SIADH secondary to pain/hip fracture, poor oral intake. -Goal for sodium correction is 6-8 mEq per 24-hour, please notify nephrology on- call stat if sodiumovercorrects or starts to decline (<3 mEq). -Strict I's and O's -Encourage oral intake, especially protein intake for solute load (protein shakes/magic cups) -Okay to continue free water restriction to 1.5 L daily -Rest of management per primary team -We will continue to follow Thank you for asking us to participate in the management of your patient, please do not hesitate tocontact us for any concerns regarding my recommendations as outlined above. Please do no hesitate to call with any questions Pager [phone] * Josi Bhatti MD - 06/08/2021 6:24 AM EST Images from the original note were not included. Department of Orthopedic Surgery Progress Note SUBJECTIVE: No acute events overnight. Resting comfortably in bed. Pain controlled. Denies new paresthesias. OBJECTIVE: General: alert and oriented to person, place and time, well-developed and well- nourished, in no acute distress VITALS: BP 119/60 Pulse 70 Temp 98.5 F (36.9 C) (Temporal) Resp 16 SpO2 97% MSK exam: LLE: Skin over lateral hip c/d/i SILT s/s/sp/dp/t Palp DP pulse +motor DF/PF/EHL Labs: CBC: Lab Results Component Value Date WBC 7.8 06/07/2021 RBC 3.38 06/07/2021 HGB 10.2 06/07/2021 HCT 30.5 06/07/2021 MCV 90.0 06/07/2021 MCH 30.1 06/07/2021 MCHC 33.5 06/07/2021 RDW 18.4 06/07/2021 PLT 258 06/07/2021 MPV 7.7 06/07/2021 BMP: Lab Results Component Value Date NA 130 06/07/2021 K 4.3 06/07/2021 CL 96 06/07/2021 CO2 29 06/07/2021 BUN 31 06/07/2021 LABALBU 3.6 06/06/2021 CREATININE 0.95 06/07/2021 CALCIUM 8.4 06/07/2021 GLUCOSE 107 06/07/2021 Type and Screen: Lab Results Component Value Date LABABO O 06/06/2021 RH NEG 06/06/2021 LABANTI POS 06/06/2021 INR: Lab Results Component Value Date INR 1.1 06/06/2021 CRP: No results found for: CRP ESR: No results found for: SEDRATE ASSESSMENT AND PLAN: This is a 81 y.o. female with L femoral neck fracture s/p femoral neck malunion + L IT fx -Tentatively plan for OR 06/08 -NPO -Cleared -Consented -Added -Preoperative labs obtained -Ice -NWB LLE -Bedrest -esparza -Anesthesia consulted for hip block -Admitted to medicine -Please hold DVT prophylaxis in anticipation of OR Josi Bhatti MD PGY-2, Orthopaedic Surgery 06/08/2021 .6:24 AM * Tabby Hudson DTR - 06/07/2021 3:00 PM EST Nutrition rescreen completed. Chart reviewed. Patient to be monitored and followed by the diet tablet technician. * Ruthy Parsons APRN - PERFORMANCE IMPROVEMENT CONSULTANT - 06/07/2021 12:56 PM EST PAGING: The Acute Pain Service providers are available via [employer]. Please reference [employer] for Pain Management Provider SALES AND BUSINESS DEVELOPMENT MANAGER and direct all questions to the provider listed. Please send pages as urgent from 9pm-7am if they require a response. All other pages will be addressed nextday, thank you. Due to the current environment of [place] [address], PPE was worn for the duration of all face to face encounters including but not limited to an N95 in accordance with [facility] and hospital guidelines. 06/07/2021 Referring Physician: Isaak Palma MD Subjective: We have been asked to see this 81 y.o. female for perioperative pain management with planned surgery on 06/08/21. Pt presented to [facility] ED c/o L hip pain s/p fall --> found to have L IT with subtrochanteric extension proximal femur fracture with femoral neck malunion. Reviewed EKG 06/06/2021 NAEON, no pages. On arrival, pt sitting up in bed, much more alert today - family at bedside. Pt A&Ox3. Pt appears well, comfortable. Pt talkative and cooperative throughout exam, happy with current pain regimen.Pain controlled. Pt would like to have nerve block done DOS - scheduled for 06/08/21. Tolerating diet, denies n/v. Patient educated on pain regimen, aware that oxycodone, dilaudid are PRN and patient must ask for these medications when needed. Realistic pain control discussed with patient: Not all pain will be taken away, but pain should be tolerable/manageable with current regimen. Pt instructed to have staff page APS if pain becomes uncontrolled when utilizing present regimen. Pt agreeable, den ies further questions. PMH reviewed below, significant for: COPD, HTN, Chronic pain - pt prescribed Vicodin 5-325mg outpt for chronic back pain Sedation score: 1: Awake and alert Pain Severity: mild Pain Location: LLE Pain Quality: aching and dull Aggravating Factors: Moving Alleviating Factors: Rest Social History Tobacco Use Smoking Status Former Smoker Smokeless Tobacco Current User Social History Substance and Sexual Activity Alcohol Use None Social History Substance and Sexual Activity Drug Use Not on file Smoking: Former ETOH: denies Illicit Drugs: Denies Prescription Drug Abuse: Denies Pain Management: n/a pain Rx filled by pt's PCP The patient's medical history and physical assessment, medications, allergies, patient's current medical condition, imaging, and labs were reviewed as part of this consultation. [x] Patient's Medications have been reviewed. [x] Patient's OARRS report (PDMP) have been reviewed. Overdose Risk Score 410 Filled Written Sold ID Drug QTY Days Prescriber RX # Dispenser Refill Daily Dose* Pymt Type CASH APPLICATIONS COORDINATOR 05/26/2021 05/26/2021 1 Lorazepam 2 Mg Tablet 90.[address] [facility] [id number] Mar ([id number]) 0 6.00 [place]ME [place] 05/26/2021 05/26/2021 1 Hydrocodone-Acetamin 5-[address] [facility] [id number] Mar ([id number]) 0 20.00 [place] 04/29/2021 04/29/2021 1 Hydrocodone-Acetamin 5-[address] [facility] [id number] Mar ([id number]) 0 20.00 [place] 04/28/2021 04/28/2021 1 Lorazepam 2 Mg Tablet 90.[address] [facility] [id number] Mar ([id number]) 0 6.00 [place] 03/26/2021 03/26/2021 1 Hydrocodone-Acetamin 5-[address] [facility] [id number] Mar ([id number]) 0 20.00 [place] 03/23/2021 11/24/2020 1 Lorazepam 2 Mg Tablet 90.[address] [facility] [id number] Mar ([id number]) 0 6.00 [place] 02/20/2021 02/20/2021 1 Hydrocodone-Acetamin 5-[address] [facility] [id number] Mar ([id number]) 0 20.00 [place] 02/20/2021 02/20/2021 1 Lorazepam 2 Mg Tablet 90.[address] [facility] [id number] Mar ([id number]) 0 6.00 [place] 01/21/2021 01/21/2021 1 Lorazepam 2 Mg Tablet 90.[address] [facility] [id number] Mar ([id number]) 0 6.00 [place] 01/21/2021 01/21/2021 1 Hydrocodone-Acetamin 5-[address] [facility] [id number] Mar ([id number]) 0 20.00 [place] 12/22/2020 12/19/2020 1 Hydrocodone-Acetamin 5-325 Mg 120.00 [address] [facility] [id number] Mar ([id number]) 0 20.00 [place] 12/22/2020 12/19/2020 1 Lorazepam 2 Mg Tablet 90.00 30 [address] Steffany [id number] Mar ([id number]) 0 6.00 [place] 11/23/2020 11/19/2020 3 Lorazepam 2 Mg Tablet 90.[address] Mur [id number] Sara ([id number]) 0 6.00 [place] 11/21/2020 11/19/2020 1 Hydrocodone-Acetamin 5-[address] [facility] [id number] Mar ([id number]) 0 20.00 [place] 10/24/2020 10/24/2020 1 Hydrocodone-Acetamin 5-[address] [facility] [id number] Mar ( Objective Findings: Vital signs: Blood pressure 126/63, pulse 63, temperature 98.1 F (36.7 C), temperature source Temporal, resp. rate 16, SpO2 93 %. Allergies: Demerol hcl [meperidine] Past Medical History: Diagnosis Date Cerebral artery occlusion with cerebral infarction (HCC) COPD (chronic obstructive pulmonary disease) ([facility]) Hypertension Past Surgical History: Procedure Laterality Date COSMETIC SURGERY breast implants History reviewed. No pertinent family history. Patient Active Problem List Diagnosis Closed fracture of left hip requiring operative repair ([facility]) Review of Systems Constitutional: Negative for chills and fever. HENT: Negative for trouble swallowing. Eyes: Negative for visual disturbance. Respiratory: Negative for chest tightness and shortness of breath. Cardiovascular: Negative for chest pain and palpitations. Gastrointestinal: Negative for abdominal pain, nausea and vomiting. Genitourinary: Negative for difficulty urinating and hematuria. Musculoskeletal: Positive for arthralgias and gait problem. Skin: Negative for color change. Neurological: Negative for dizziness, syncope, light-headedness and headaches. Psychiatric/Behavioral: Negative for agitation and confusion. Physical Exam Vitals and nursing note reviewed. HENT: Head: Normocephalic. Cardiovascular: Rate and Rhythm: Normal rate. Pulmonary: Effort: Pulmonary effort is normal. No respiratory distress. Abdominal: Palpations: Abdomen is soft. Tenderness: There is no guarding. Genitourinary: Comments: Esparza catheter in place Musculoskeletal: General: Tenderness present. Skin: General: Skin is warm and dry. Neurological: Mental Status: She is alert and oriented to person, place, and time. Psychiatric: Mood and Affect: Mood normal. Behavior: Behavior normal. Pain Management Adjuvants: 0700 --> 0700 06/05/2021 06/06/2021 Scheduled APAP 2 g Lidocaine patches PRN hydromorphone 0 oxycodone 10 mg BLOCK: n/a Lab Results Component Value Date/Time CREATININE 0.95 06/07/2021 12:28 AM AST 47 (H) 06/06/2021 01:33 AM ALT 20 06/06/2021 01:33 AM Assessment / Pain Management Plan: 1. Acute LLE pain, Left femur fracture Multimodal pain regimen: Continue Acetaminophen 1000 mg po TID scheduled ATC. Continue Lidocaine patches x 2. Cut and place as needed. Continue Oxycodone 2.5 - 5 mg po q4h prn moderate to severe breakthrough pain. Continue Hydromorphone 0.25 mg mg IVP q4h prn moderate to severe breakthrough pain. Please utilize oral medications first. Nerve block to be done DOS 2. Chronic pain Followed by PCP Pt prescribed Vicodin 5-325 mg, pt states she takes 2-3 pills daily 3. Constipation At risk for opioid induced constipation Patient currently receiving opioids for pain management necessitating a bowel regimen. Recommend initiating scheduled Sennakot-S 8.6/50mg, 1 tablet PO BID. Would also recommend Milk of Magnesia 400mg/5ml, administer 30mL by mouth daily PRN. LBM:06/05/21, +flatus 4. Opioid Use Acute: Expected to be short term postop pain, see #1 OARRS reviewed for past two years. (monthly narcotic RX filled consistently, last filled: Lorazepam2 mg 05/26/21, Hydrocodone-Acetaminophen 5-325mg 05/26/21) Reviewed and educated patient on responsible use of opioids: after surgery, it can be normal to experience pain. If it is mild and you can move about without great difficulty or discomfort, you may not need to take pain medication. It is very important to take your pain medication only as needed. Avoiding excessive or unnecessary medication, will enable you to progress your activity each day to improve your muscle tone and movement, deep breathing, digestion, circulation and your body's abilityto heal itself. Will follow. Plan discussed with patient who appears to understand and agrees. PAGING: The Acute Pain Service providers are available via [employer]. Please reference [employer] for Pain Management Provider SALES AND BUSINESS DEVELOPMENT MANAGER and direct all questions to the provider listed. Please send pages as urgent from 9pm-7am if they require a response. All other pages will be addressed nextday, thank you. * Mirtha Wilson MD - 06/07/2021 10:27 AM EST Hospitalist Progress Note 06/07/2021 10:27 AM Subjective: Admit Date: 06/05/2021 PCP: No primary care provider on file. Interval History: No overnight issues. ADULT DIET; Regular; 1500 ml I/O last 3 completed shifts: In: 300 [P.O.:300] Out: 300 [Urine:300] Date 06/07/21 0000 - 06/07/21 2359 Shift [id number] [id number] [id number] 24 Hour Total INTAKE P.O. 300 300 Shift Total 300 300 OUTPUT Urine 300 300 Shift Total 300 300 Weight (kg) No data found. Medications: sodium chloride levothyroxine 75 mcg Oral Daily sodium chloride flush 5-40 mL IntraVENous 2 times per day clopidogrel 75 mg Oral Daily lisinopril 20 mg Oral Daily metoprolol succinate 50 mg Oral Daily montelukast 10 mg Oral Nightly lidocaine 2 patch TransDERmal Daily acetaminophen 1,000 mg Oral TID trospium 20 mg Oral Nightly Recent Labs 06/06/21 0133 06/07/21 0028 WBC 8.7 7.8 HGB 11.2* 10.2* PLT 321 258 Recent Labs 06/06/2113206/06/21 1621 06/07/21 0028 NA 126* 129* 126* K 4.8 4.1 4.3 CL 95* 94* 96* CO2 27 34* 29 BUN 21* 25* 31* CREATININE 0.67 0.91 0.95 GLUCOSE 86 94 107* Recent Labs 06/06/21132 AST 47* ALT 20 BILITOT 1.2 ALKPHOS 74 No results found for: TRIG, HDL, LDLCALC, CHOL No results found for: PHART, PO2ART, QXS3YRX Recent Labs 06/06/21132 INR 1.1 No results for input(s): CKTOTAL, CKMB, TROPONINI in the last 72 hours. No results for input(s): DDIMER in the last 72 hours. No components found for: HGBA1C No results found for: TSH Urine Culture: No results found for this or any previous visit. Objective: Vitals: BP 126/63 Pulse 63 Temp 98.1 F (36.7 C) (Temporal) Resp 16 SpO2 93% Pulse Ox: SpO2 Av.5 % Min: 93 % Max: 94 % Supplemental O2: General appearance: alert and cooperative with exam Lungs: clear to auscultation bilaterally Heart: regular rate and rhythm, S1, S2 normal, no murmur, click, rub or gallop Abdomen: soft, non-tender; bowel sounds normal; no masses, no organomegaly Extremities: extremities normal, atraumatic, no cyanosis or edema Neurologic: No obvious focal neurologic deficits. Assessment Left hip fracture S/p mechanical fall Hyponatremia Past Medical History []Expand by Default Diagnosis Date Cerebral artery occlusion with cerebral infarction (HCC) COPD (chronic obstructive pulmonary disease) (HCC) Hypertension PLAN: 06/07: Patient presented after a fall and was found to have left hip fracture. Seen by Ortho and plan for surgery on Thursday 06/08 Continue with DVT prophylaxis with Lovenox, hold this PM Pain control. Pain management following Na 126 -?SIADH due to pain. Cont with PO fluid restriction. Nephrology consulted. Monitor Na level closely and avoid rapid correction. Mirtha Wilson MD, MD Rounding Hospitalist * Nica Kirby MD - 06/06/2021 8:18 AM EST Patient d/w Dr. Gamble. Will plan to discuss patient with Dr. Catherine. Tentatively plan for OR 06/08 for ORIF L Femur. Ok for diet today. NPO@IN 06/08. Nica Kirby MD Orthopaedic Surgery PGY-2 *[id number] * Dennise Tejada RN - 06/06/2021 6:30 AM EST Pt requested ortho to not contact son or involve him in the surgical plan. Son is POA, but he doesn't have a way to be reached currently. Ortho consulted with pt's daughter, and daughter agrees surgery is the best plan for her mother. Pt is A&Ox3. She is able to give consent to ortho for surgery. * Nica Kirby MD - 06/06/2021 6:25 AM EST Ortho to bedside at patient's request. Patient isAOx3. Patient is ready to sign consent for surgery. She adamantly is requesting that her son is not involved in the decision making for this surgery. Of note her son is the POA but does not have a phone or a way of being contacted. Orthopedics has also contacted daughter, Mari, and updated her as far as plans for surgery and she also agrees that this is in the best interest of her mother. Risk and benefits of surgery were discussed with the patient as well as alternatives to surgery. Patient elected to proceed with surgery and expressed understanding of these risks and benefits. Patient signed consent. We will continue with plans for operative fixation of her left femur, definitive plans pending CT. Nica Kirby MD Orthopaedic Surgery PGY-2 *[id number] documented in this encounterSUMMA Work Phone: [phone]) 603-130302-17-2022 Hospital Discharge instructions* Discharge Instr - RAFAEL* Justus Siddiqui RN - 06/11/2021 2:38 PM EST Continuity of Care Form Patient Name: Debra Cole : 1940 Admit date: 06/05/2021 Discharge date: Code Status Order: Full Code Advance Directives: Admitting Physician: Isaak Palma MD PCP: Jamie Boateng Discharging Nurse: Justus Siddiqui RN Discharging Hospital Unit/Room#: 1508/077232 Discharging Unit Emergency Contact: Extended Emergency Contact Information Primary Emergency Contact: Any Koch Relation: Child Past Surgical History: Past Surgical History: Procedure Laterality Date COSMETIC SURGERY breast implants ORIF FEMUR DECOMPRESSION Left 06/08/2021 Immunization History: There is no immunization history on file for this patient. Active Problems: Patient Active Problem List Diagnosis Code Closed fracture of left hip requiring operative repair ([facility]) S72.002A Isolation/Infection: Isolation No Isolation Patient Infection Status None to display Nurse Assessment: Last Vital Signs: BP 130/74 Pulse 98 Temp 98.9 F (37.2 C) (Temporal) Resp 16 Ht 5' 2 (1.575 m) Wt 88 lb (39.9 kg) SpO2 97% BMI 16.10 kg/m Last documented pain score (0-10 scale): Pain Level: 9 Last Weight: Wt Readings from Last 1 Encounters: 06/08/21 88 lb (39.9 kg) Mental Status: disoriented and alert IV Access: - None Nursing Mobility/ADLs: Walking Dependent Transfer Dependent Bathing Dependent Dressing Dependent Toileting Dependent Feeding Dependent Assistant Manager Quality Management Dependent Med Delivery crushed Wound Care Documentation and Therapy: Elimination: Continence: Bowel: Yes Bladder: Urinary Catheter: {Urinary Catheter:[id number]} Colostomy/Ileostomy/Ileal Conduit: No Date of Last BM: [id number] Intake/Output Summary (Last 24 hours) at 06/11/2021 1437 Last data filed at 06/10/2021 1530 Gross per 24 hour Intake -- Output 100 ml Net -100 ml I/O last 3 completed shifts: In: - Out: 250 [Urine:250] Safety Concerns: History of Falls (last 30 days) and At Risk for Falls Impairments/Disabilities: None Nutrition Therapy: Current Nutrition Therapy: - Oral Diet: General Routes of Feeding: Oral Liquids: Thin Liquids Daily Fluid Restriction: yes - amount 1500mL Last Modified Barium Swallow with Video (Video Swallowing Test): not done Treatments at the Time of Hospital Discharge: Respiratory Treatments: N/A Oxygen Therapy: is not on home oxygen therapy. Ventilator: - No ventilator support Rehab Therapies: Physical Therapy and Occupational Therapy Weight Bearing Status/Restrictions: Non-weight bearing on left leg Other Medical Equipment (for information only, NOT a DME order): {EQUIPMENT:[id number]} Other Treatments: Patient's personal belongings (please select all that are sent with patient): {[facility] DME Belongings:[id number]} RN SIGNATURE: CASE MANAGEMENT/SOCIAL WORK SECTION Inpatient Status Date: Readmission Risk Assessment Score: Readmission Risk Risk of Unplanned Readmission: 11 Discharging to Facility/ Agency Name: [facility] Address:[address] [place] [address] Dialysis Facility (if applicable) Name: Address: Dialysis Schedule: Phone: Fax: Web Design Intern/Telephone Station Repairer signature: PHYSICIAN SECTION Prognosis: Fair Condition at Discharge: Stable Rehab Potential (if transferring to Rehab): Good Recommended Labs or Other Treatments After Discharge: Follow-up with orthopedic surgery, continue Lovenox until 06/22/2021 for DVT prophylaxis after orthopedic surgery, check CBC in 2 to 3 days after discharge from the hospital and report to her PCP or primary provider at the skilled facility Physician Certification: I certify the above information and transfer of Debra Cole is necessary for the continuing treatment of the diagnosis listed and that she requires [facility] Facility for less 30 days. Update Admission H&P: No change in H&P PHYSICIAN SIGNATURE: * Additional Instructions* Josi Bhatti MD - 06/08/2021 Images from the original note were not included. General Orthopedic Discharge Instructions The following instructions have been prepared to help you when you leave the hospital. These guidelines are for the post-surgery period. Activity: Ease into normal activity as tolerated. Weightbearing status: as tolerated left leg Medications: see medication instructions. Please be sure to read and understand the information provided by your pharmacy. Ask your Pharmacist if any questions. Wound Care and Hygiene: -Wash hands before touching or changing dressings -Do Not touch incision -Leave dressing till post-op day 2 and reapply dressing if wound is leaking. If wound is dry, you may leave dressing off -May shower starting post-op day 3 Call Your Doctor for: -Excessive bleeding/swelling of incision -Fever with temperature above 101 F Anesthesia Precautions: -Do Not operate any vehicle (automobile, bicycle, motorcycle) or power tools for 24 hours -Do Not drink alcoholic beverages for 24 hours -As precaution to prevent post-operative nausea and vomiting, start your diet with liquids, then progress to light foods. If tolerated, resume normal diet. Contact your surgeon's office (Dr. Catherine) to set up an appointment in 2 weeks, or if you have any problems or questions. documented in this encounterSUMMA Work Phone: 1(992) 131-535401-21-2022 Hospital Discharge instructions Patient Education 05/15/2021 15:24:26 Bladder Infection, Female (Adult) Bladder Infection, Female (Adult) Urine is normally doesn't have any bacteria in it. But bacteria can get into the urinary tract fromthe skin around the rectum. Or they can travel in the blood from elsewhere in the body. Once they are in your urinary tract, they can cause infection in the urethra (urethritis), the bladder (cystitis), or the kidneys (pyelonephritis). The most common place for an infection is in the bladder. This is called a bladder infection. This is one of the most common infections in women. Most bladder infections are easily treated. They are not serious unless the infection spreads to the kidney. The phrases bladder infection, UTI, and cystitis are often used to describe the same thing. But they are not always the same. Cystitis is an inflammation of the bladder. The most common cause of cystitis is an infection. Symptoms The infection causes inflammation in the urethra and bladder. This causes many of the symptoms. Themost common symptoms of a bladder infection are: Pain or burning when urinating Having to urinate more often than usual Urgent need to urinate Only a small amount of urine comes out Blood in urine Abdominal discomfort. This is usually in the lower abdomen above the pubic bone. Cloudy urine Strong- or bad-smelling urine Unable to urinate (urinary retention) Unable to hold urine in (urinary incontinence) Fever Loss of appetite Confusion (in older adults) Causes Bladder infections are not contagious. You can't get one from someone else, from a toilet seat, or from sharing a bath. The most common cause of bladder infections is bacteria from the bowels. The bacteria get onto the skin around the opening of the urethra. From there, they can get into the urine and travel up to thebladder, causing inflammation and infection. This usually happens because of: Wiping improperly after urinating. Always wipe from front to back. Bowel incontinence Procedures such as having a catheter inserted Older age Not emptying your bladder. This can allow bacteria a chance to grow in your urine. Dehydration Constipation Sex Use of a diaphragm for control Treatment Bladder infections are diagnosed by a urine test. They are treated with antibiotics and usually clear up quickly without complications. Treatment helps prevent a more serious kidney infection. Medicines Medicines can help in the treatment of a bladder infection: Take antibiotics until they are used up, even if you feel better. It is important to finish them tomake sure the infection has cleared. You can use acetaminophen or ibuprofen for pain, fever, or discomfort, unless another medicine was prescribed. If you have chronic liver or kidney disease, talk with your healthcare provider before using these medicines. Also talk with your provider if you've ever had a stomach ulcer or gastrointestinal bleeding, or are taking blood-thinner medicines. If you are given phenazopydridine to reduce burning with urination, it will cause your urine to become a bright orange color. This can stain clothing. Care and prevention These self-care steps can help prevent future infections: Drink plenty of fluids to prevent dehydration and flush out your bladder. Do this unless you must restrict fluids for other health reasons, or your doctor told you not to. Proper cleaning after going to the bathroom is important. Wipe from front to back after using the toilet to prevent the spread of bacteria. Urinate more often. Don't try to hold urine in for a long time. Wear loose-fitting clothes and cotton underwear. Avoid tight-fitting pants. Improve your diet and prevent constipation. Eat more fresh fruit and vegetables, and fiber, and less junk and fatty foods. Avoid sex until your symptoms are gone. Avoid caffeine, alcohol, and spicy foods. These can irritate your bladder. Urinate right after intercourse to flush out your bladder. If you use control pills and have frequent bladder infections, discuss it with your doctor. Follow-up care Call your healthcare provider if all symptoms are not gone after 3 days of treatment. This is especially important if you have repeat infections. If a culture was done, you will be told if your treatment needs to be changed. If directed, you cancall to find out the results. If X-rays were done, you will be told if the results will affect your treatment. Call 911 Call 911 if any of the following occur: Trouble breathing Hard to wake up or confusion Fainting or loss of consciousness Rapid heart rate When to seek medical advice Call your healthcare provider right away if any of these occur: Fever of 100.4 F (38.0 C) or higher, or as directed by your healthcare provider Symptoms are not better by the third day of treatment Back or belly (abdominal) pain that gets worse Repeated vomiting, or unable to keep medicine down Weakness or dizziness Vaginal discharge Pain, redness, or swelling in the outer vaginal area (labia) [id number] [employer]. [address] [place] [address], [place] [address]. All rights reserved. This information is not intended as a substitute for professional medical care. Always follow yourhealthcare professional's instructions. Follow Up Care 05/15/2021 10:52:31 With:JAMIE BOATENG MD Address: When:2-[address] [facility] 01-06-2022 Hospital Discharge instructions Patient Education 04/30/2021 17:48:41 WEAKNESS, Unk Cause Weakness [Uncertain Cause] Based on your exam today, the exact cause of your weakness is not certain. However, your weakness does not seem to be a sign of a serious illness at this time. Sometimes the signs of a serious illness take more time to appear. Therefore, please watch for the warning signs listed below. Home Care: 1) Rest at home today. Do not over-exert yourself. 2) Take your medicine as prescribed. 3) For the next few days, drink extra fluids (unless your doctor wants you to restrict fluids for other reasons). Do not skip meals. Follow Up with your doctor or as advised if you are not starting to feel better within TWO days. Get Prompt Medical Attention if any of the following occur: Worsening of your symptoms Chest, arm, neck, jaw or upper back pain Dizziness or fainting Trouble breathing Unable to eat or drink normal amounts Nausea, frequent vomiting, frequent diarrhea Abdominal pain Numbness or weakness of the face, one arm or one leg Slurred speech, confusion, trouble speaking, walking or seeing Blood in vomit or stool (black or red color) Fever of 100.4 F (38 C) or higher, or as directed by your healthcare provider [id number] [employer]. [address] [place] [address]. All rights reserved. This information is not intended as a substitute for professional medical care. Always follow yourhealthcare professional's instructions. Follow Up Care 04/30/2021 12:59:59 With:JAMIE BOATENG MD Address: When:2-[address] [facility] 07-02-2021 Evaluation + Plan note Future Scheduled Tests Laboratory* Thyroid Stimulating Hormone 10/24/20 * Thyroid Stimulating Hormone 05/16/20 * Free T4 10/24/20 * Free T4 05/16/20 * Complete Blood Count 05/16/20 * Lipid Profile 04/26/21 * Complete Metabolic Panel 04/26/21 * Complete Metabolic Panel 05/16/[address] [facility] 07-02-2021 Evaluation + Plan note Future Scheduled Tests Laboratory* Thyroid Stimulating Hormone 10/24/20 * Free T4 10/24/20 * Lipid Profile 04/26/21 * Complete Metabolic Panel 04/26/[address] [facility] Discharge summary Author Dr. Perez [facility] June 13, 2022 5:17pm Note Date/Time June 13, 2022 5:15pm [facility] Medical Records Department [address] [place] [address] Instructions for Home/Discharge Instructions 06/13/22 1714 MR#: [id number] Acct: [id number] Name: DEBRA COLE Jackson Rep #:[id number] : 1940 82 From: Harley Perez DO PCP: Dr. Jamie Boateng MD Status:ADM IN Discharge Instructions Diet Discharge Diet: No restrictions Activity Discharge Activity: Return to Normal Activity Weight Bearing Status: Full weight bearing Follow Up Care Test Results: Test results from this visit will be discussed in further detail at your follow- up appointment, if applicable. Discharge Plan Admission Admit Date/Time: 06/10/22 16:00 Primary Reason for Your Visit: pneumonia Attending Provider: Harley Perez Primary Care Provider: Jamie Boateng Consulting Providers: Felisha Goodman Discharge Orders/Prescriptions Prescriptions: New amoxicillin-pot clavulanate 875-125 mg Tablet 875 mg PO BID Qty: 10 0RF Rx Instructions: start 06/14/22, take with food Continued levothyroxine 75 mcg Tablet 75 mcg PO DAILY metoprolol succinate 50 mg Tablet Extended Release 24 Hr 50 mg PO QPM lisinopril 20 mg Tablet 20 mg PO DAILY montelukast [Singulair] 10 mg Tablet 10 mg PO QHS clopidogrel 75 mg Tablet 75 mg PO DAILY hydrocodone-acetaminophen 5-325 mg tablet 1 tab PO Q6H PRN (Reason: Pain) lorazepam 2 mg tablet 2 mg PO TID oxybutynin chloride 5 mg tablet extended release 24hr 5 mg PO DAILY Referrals / Follow Up: Jamie Boateng MD [Primary Care Provider] - Within 2 Weeks Disposition Disposition (needs filled in before D/C Order can be placed): Home, Self Care 06/13/22 1717<Electronically signed by Harley Perez DO>Harley Perez DO CC: Dr. Felisha Goodman MD; Dr. Jamie Boateng MD ~ Signed [facility] Work Phone: Evaluation + Plan note Future Appointments Appointment Date:11/11/2023 11:30:00 AM Scheduled Provider:JAMIE BOATENG MD Location:[facility] Appointment Type:PC OV Controlled Medication Future Scheduled Tests Laboratory* Thyroid Stimulating Hormone 08/19/23 Radiology* XR Chest 2 Views (PA & Lateral) 10/20/22 * CT Abdomen and Pelvis w/ contrast 02/18/23 * CT Abdomen and Pelvis w/ contrast 02/03/[address] [facility] Evaluation + Plan note Future Appointments Appointment Date:02/07/2024 11:30:00 AM Scheduled Provider:JAMIE BOATENG MD Location:[facility] Appointment Type:PC OV Future Scheduled Tests Laboratory* Thyroid Stimulating Hormone 08/19/23 Radiology* CT Abdomen and Pelvis w/ contrast 02/18/23 * CT Abdomen and Pelvis w/ contrast 11/15/[address] [facility] Evaluation + Plan note Future Appointments Appointment Date:06/01/2024 11:30:00 AM Scheduled Provider:JAMIE BOATENG MD Location:[facility] Appointment Type:PC OV Future Scheduled Tests Laboratory* Thyroid Stimulating Hormone 08/19/23 Radiology* CT Abdomen and Pelvis w/ contrast 11/15/[address] [facility] Evaluation + Plan note Future Appointments Appointment Date:12/14/2024 03:45:00 PM Scheduled Provider:JAMIE BOATENG MD Location:[facility] Appointment Type:PC OV Controlled Medication Future Scheduled Tests Laboratory* Urine Culture 06/15/24 Radiology* XR Foot Minimum 3 Views Left 5/23/25 * XR Foot Minimum 3 Views Right 09/14/24 * XR Ankle Minimum 3 Views Left 09/14/24 * XR Ankle Minimum 3 Views Right 09/14/[address] [facility] Evaluation note* Diagnosis Closed fracture of left hip requiring operative repair, initial encounter ([facility])- Primary Severe malnutrition ([facility]) Nutritional marasmus documented in [facility] encounter [facility] Work Phone: Evaluation note* Diagnosis Dislocation of left hip, initial encounter ([facility])- Primary Ulcer of sacral region, unstageable ([facility]) documented in this encounter [facility] Work Phone: Evaluation noteNo assessment information available [facility] Work Phone: Evaluation note* Diagnosis Onset Date Resolution Status Accelerated hypertension acu te Beta inessa toxicity acute Bradycardia, sinus acute 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 Hospital Discharge instructions No data available for this section [facility] Progress note No data available for this section 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 ACP-Advance Directive 06/06/2021 12:00 AM Latest Code Status on File Code Status Date Activated Date Inactivated Comments Full Code 06/26/2021 2:38 PM Full Code 06/06/2021 12:14 AM 06/17/2021 8:18 PM Advance Directive Response Recorded Date/ Time Living Will Yes June 05, 2 022 4:24pm Power of Cisco Consultant Yes June 05, 2021 4:24pm Advance Directive Response Recorded Date/ Time Name of Medical Power of [employer] Consultant luann sotoson June 05, 2021 4:24pm Living Will Yes September 07, 2021 1 :26pm Power of Cisco Consultant Yes September 07, 2021 1:26pm Advance Directive Response Recorded Date/ Time Name of Medical Power of Cisco Consultant luann dominguez June 05, 2021 4:24pm Living Will Yes September 07, 2021 5 :34pm Power of Cisco Consultant Yes September 07, 2021 5:34pm Advance Directive Response Recorded Date/ Time Name of Medical Power of Cisco Consultant Any Koch June 10, 2022 5:53pm Living Will Yes June 10, 023 5:53pm Power of Cisco Consultant Yes June 10, 2022 5:53pm Advance Directive Response Recorded Date/ Time Living Will Yes June 10 2 023 5:53pm Power of [employer] Consultant Yes June 10, 2022 5:53pm Reason for Referral Specialty Diagnoses / Procedures Referred By Contac t Referred To Contact IP Unit Diagnoses Ulcer of sacral region, unstageable (HCC) Ach H6 Telemetry [address] [place] [address] [facility] [address] [place] [address] Referral ID Status Reason Start Date Expiration Date V isits Requested Visits Authorized [id number] Open Specialty Services Required 06/29/2021 06/29/2022 1 1 Scheduling Instructions [facility] [address] [place] [address] Summary Purpose Family History No Family History Records Found Relationship Condition Age at Onset Recorded Date/T christina Not Specified Hypertension Unknown Cerebrovascular accident (CVA) Unknown Relationship Condition Age at Onset Recorded Date/T christina Not Specified Cerebrovascular accident (CVA) Unknown mother Hypertension Unknown Cardiac disease Unknown father Hypertension Unknown Malignant neoplasm Unknown Chief Complaint and Reason for Visit Chief Complaint fell over rug while making brownies Chief Complaint fell over rug while making brownies BB OVERDOSE Reason for Visit Accelerated hyperten mady Beta inessa toxicity Bradycardia, sinus Failure of left total hip arthroplasty with dislocation of hip Normocytic anemia Peripheral artery disease Severe malnutrition Chief Complaint fell over rug while making brownies BB OVERDOSE BB OVERDOSE BB OVERDOSE BB OVERDOSE BB OVERDOSE BB OVERDOSE BB OVERDOSE BB OVERDOSE BB OVERDOSE BB OVERDOSE BB OVERDOSE BB OVERDOSE BB OVERDOSE BB OVERDOSE BB OVERDOSE BB OVERDOSE Reason for Visit Accelerated hyperten mady Beta inessa toxicity Bradycardia, sinus Failure of left total hip arthroplasty with dislocation of hip Normocytic anemia Peripheral artery disease Severe malnutrition Chief Complaint AMS AMS AMS AMS Reason for Visit Acute confusion Community acquired pneumonia Chronic respiratory acidosis Chief Complaint CONSTIPATION Additional Source Comments Ordered Prescriptions (unrec ognized section and content) Prescription Sig Dispensed Refills Start Date End Da te ferrous sulfate (IRON 325) 325 (65 Fe) MG tablet Take 1 tablet by mouth 2 times daily (with meals) 30 tablet 3 06/17/2021 LORazepam (ATIVAN) 0.5 MG tabletIndications:Closed fracture of left hip requiring operative repair, initial encounter ([facility]) Take 1 tablet by mouth every 8 hours as needed for Anxiety for up to 30 days. 15 tablet 0 06/17/2021 07/17/2021 enoxaparin (LOVENOX) 40 MG/0.4ML injection Inject 0.4 mLs into the skin daily for 10 days Start on 06/22/2021 3 06/12/2021 06/22/2021 LORazepam (ATIVAN) 2 MG tabletIndications:Closed fracture of left hip requiring operative repair, initial encounter ([facility]) Take 1 tablet by mouth every 8 hours as needed for Anxiety for up to 7 days. 21 tablet 0 06/08/2021 06/17/2021 oxyCODONE (ROXICODONE) 5 MG immediate release tabletIndications:Closed fracture of left hip requiring operative repair, initial encounter ([facility]) Take 0.5 tablets by mouth every 4 hours as needed for Pain for up to 5 days. 20 tablet 0 06/08/2021 06/13/2021 Prescription Sig Dispensed Refills Start Date End Da te oxyCODONE (ROXICODONE) 5 MG immediate release tabletIndications:Disloca tion of left hip, initial encounter ([facility]) Take 1 tablet by mouth every 4 hours as needed for Pain for up to 3 days. 12 tablet 0 06/29/2021 07/02/2021 ferrous sulfate (IRON 325) 325 (65 Fe) MG tablet Take 1 tablet by mouth 2 times daily (with meals) 30 tablet 3 06/29/2021 Scheduled Active and Recently Administ ered Medications (unrecognized section and content) Medication Order 06/15/2021 06/16/2021 06/17/2021 acetaminophen (TYLENOL) tablet 1,000 mg 1,000 mg, Oral, 3 TIMES DAILY, First dose on 06/06/21 at 1400, Maximum dose of acetaminophen is 4000 mg from all sources in 24 hours. 0928 (Given - Provider: Nela Marin RN)1548 (Not Given - Provider: Nela Marin RN - Reason: Other - Comment: lethargic) 0000 (Not Given - Provider: Rosie Briceño RN - Reason: Other - Comment: Pt lethargic from sedation)0839 (Given - Provider: Lyndsay Lao, VERENA)1702 (Given - Provider: Lyndsay Lao, VERENA)2231 (Not Given - Provider: Courtney Hinton RN - Reason: Patient/family refused) 0928 (Given - Provider: Justus Siddiqui RN)1705 (Given - Provider: Justus Siddiqui RN) clopidogrel (PLAVIX) tablet 75 mg 75 mg, Oral, DAILY, First dose on 06/06/21 at 1245 0900 (Automatically Held - Provider: Heri Redd DO) 0900 (Automatically Held) 0900 (Automatically Held) enoxaparin (LOVENOX) injection 40 mg 40 mg, SubCUTAneous, DAILY, First dose on Tue06/09/21 at 0900 0928 (Given - Provider: Nela Marin RN) 0838 (Given - Provider: Lyndsay Lao, VERENA) 0929 (Given - Provider: Justus Siddiqui RN) erythromycin (ROMYCIN) ophthalmic ointment Right Eye, EVERY 4 HOURS, First dose (after last modification) on Tue06/08/21 at 2230 0322 (Not Given - Provider: Jessica Matthews, VERENA - Reason: Patient/family refused)0616 (Given - Provider: Jessica Matthews, VERENA)0930 (Given - Provider: Nela Marin RN)1356 (Not Given - Provider: Nela Marin RN - Reason: Patient/family refused)1614 (Given - Provider: Nela Marin RN)2242 (Given - Provider: Rosie Briceño RN) 0230 (Not Given - Provider: Rosie Briceño RN - Reason: Patient/family refused)0613 (Not Given - Provider: Rosie Briceño RN - Reason: Patient/family refused)1058 (Given - Provider: Lyndsay Lao RN)1445 (Not Given - Provider: Lyndsay Lao RN - Reason: Patient/family refused)1704 (Not Given - Provider: Lyndsay Lao RN - Reason: Patient/family refused)2230 (Not Given - Provider: Courtney Hinton RN - Reason: Patient/family refused) 0302 (Given - Provider: Farideh Glass, VERENA)0624 (Not Given - Provider: Farideh Glass RN - Reason: Patient/family refused)1000 (Given - Provider: Justus Siddiqui RN)1410 (Given - Provider: Justus Siddiqui RN)1830 (Due)2230 (Due) ferrous sulfate (IRON 325) tablet 325 mg 325 mg, Oral, 2 TIMES DAILY WITH MEALS, First dose on 06/15/21 at 1700 1613 (Given - Provider: Nela Marin RN) 0839 (Given - Provider: Lyndsay Lao RN)1704 (Not Given - Provider: Lyndsay Lao RN - Reason: Patient/family refused) 0930 (Given - Provider: Justus Siddiqui RN)1700 (Due) levothyroxine (SYNTHROID) tablet 75 mcg 75 mcg, Oral, DAILY, First dose on 06/06/21 at 0700, Tube feeding (TF) interaction, obtain physician order to manage, recommend holding TF for 30 minutes before and after dose. 0616 (Given - Provider: Jessica Matthews RN) 0606 (Given - Provider: Rosie Briceño RN) 0625 (Given - Provider: Farideh Glass, VERENA) lidocaine 4 % external patch 2 patch 2 patch, TransDERmal, Administer over 12 Hours, DAILY, First dose on 06/06/21 at 1245, Cut and place as needed. Patch may remain in place for up to 12 hours in any 24 hour period. 0928 (Patch Applied - Provider: Nela Marin RN - Comment: LLE)2242 (Patch Removed - Provider: Rosie Briceño RN) 0838 (Patch Applied - Provider: Lyndsay Lao RN) 0008 (Patch Removed - Provider: Farideh Glass RN)0930 (Held - Provider: Justus Siddiqui RN - Reason: Patient/family refused) lisinopril (PRINIVIL;ZESTRIL) tablet 20 mg 20 mg, Oral, DAILY, First dose on 06/06/21 at 1245 0900 (Automatically Held - Provider: Heri Redd DO) 0900 (Automatically Held) 0900 (Automatically Held) metoprolol succinate (TOPROL XL) extended release tablet 50 mg 50 mg, Oral, DAILY, First dose on 06/06/21 at 1245, Do not crush or chew. 0928 (Given - Provider: Nela Marin RN) 0839 (Not Given - Provider: Lyndsay Lao RN - Reason: Contraindicated) 0930 (Given - Provider: Justus Siddiqui RN) montelukast (SINGULAIR) tablet 10 mg 10 mg, Oral, NIGHTLY, First dose on 06/06/21 at 2100 2242 (Not Given - Provider: Rosie Briceño RN - Reason: Other - Comment: Pt drowsy from sedation) 2231 (Given - Provider: Courtney Hinton, VERENA) 2100 (Due) sodium chloride flush 0.9 % injection 5-40 mL 5-40 mL, IntraVENous, EVERY 12 HOURS SCHEDULED (2 times per day), First dose on 06/06/21 at 0900, For Line Patency: Peripheral IV = 5 mL; Midline or Central Line = 10 mL/lumen. If following IV push medication, administer flush at same rate as the IV push. Flush volume is determined by type of infusion therapy being given. For non-viscous solutions use: Peripheral IV = 5 mL Midline or Central Line = 10 mL/lumen For viscous solutions (i.e. blood components, parenteral nutrition, contrast media, or after obtaining blood sample) use: Peripheral IV = 10 mL Midline or Central Line = 20 mL/lumen 0929 (Given - Provider: Nela Marin, VERENA)2300 (Not Given - Provider: Rosie Briceño RN - Reason: IV Fluid Infusing) 0840 (Not Given - Provider: Lyndsay Lao RN - Reason: IV Fluid Infusing) 0010 (Not Given - Provider: Farideh Glass RN - Reason: IV Fluid Infusing)1000 (Not Given - Provider: Justus Siddiqui RN - Reason: Other)2100 (Due) trospium (SANCTURA) tablet 20 mg 20 mg, Oral, NIGHTLY, First dose on 06/06/21 at 2100, Administer with water on an empty stomach at least 1 hour prior to meals. *Therapeutic substitution for oxybutynin (Ditropan)* 224 (Not Given - Provider: Rosie Briceño RN - Reason: Other - Comment: Pt drowsy from sedation) 223 (Given - Provider: Courtney Hinton RN) 2100 (Due) Continuous Medication Order 06/15/2021 06/16/2021 06/17/2021 0.9 % sodium chloride infusion (CANCELED) IntraVENous, at 75 mL/hr, CONTINUOUS, Starting on 06/15/21 at 1400 1356 (New Bag - Provider: Nela Marin RN) 0839 (New Bag - Provider: Lyndsay Lao, VERENA) 1658 (Stopped - Provider: Justus Siddiqui RN) PRN Medication Order 06/15/2021 06/16/2021 06/17/2021 0.9 % sodium chloride infusion 25 mL, IntraVENous, at 100 mL/hr, PRN, If patient receiving piggyback infusions without ordered maintenance IV fluids or with frequent/long duration piggyback infusions, Starting on 06/06/21 at 0010, Administer at the same rate as the piggyback being infused. HYDROmorphone (DILAUDID) injection 0.25 mg 0.25 mg, IntraVENous, EVERY 4 HOURS PRN, Pain Severe (7-10), Starting on 06/06/21 at 1220, If oral and IV narcotics ordered, use oral first and only use IV if oral is ineffective or cannot take oral. Do Not give oral and IV within 1 hour of each other unless specifically ordered. LORazepam (ATIVAN) tablet 0.5 mg 0.5 mg, Oral, EVERY 8 HOURS PRN, Anxiety, Starting on 06/15/21 at 1245 2231 (Given - Provider: Courtney Hinton RN) 0930 (Given - Provider: Justus Siddiqui, RN) nicotine polacrilex (NICORETTE) gum 2 mg 2 mg, Oral, EVERY 2 HOURS PRN, Smoking cessation, Starting on 06/06/21 at 0012 ondansetron (ZOFRAN) injection 4 mg(Linked Group 1) 4 mg, IntraVENous, EVERY 6 HOURS PRN, Nausea, Vomiting, Starting on 06/06/21 at 0010, Administer if oral route cannot be used. ondansetron (ZOFRAN-ODT) disintegrating tablet 4 mg(Linked Group 1) 4 mg, Oral, EVERY 8 HOURS PRN, Nausea, Vomiting, Starting on 06/06/21 at 0010 oxyCODONE (ROXICODONE) immediate release tablet 2.5 mg(Linked Group 2) 2.5 mg, Oral, EVERY 4 HOURS PRN, Pain Moderate (4-6), Starting on 06/06/21 at 1220 0616 (See Alternative - Provider: Jessica Matthews RN) 0606 (See Alternative - Provider: Rosie Briceño RN) 0145 (See Alternative - Provider: Farideh Glass, VERENA)0625 (Given - Provider: Farideh Glass, VERENA)1524 (See Alternative - Provider: Justus Siddiqui, RN) oxyCODONE (ROXICODONE) immediate release tablet 5 mg(Linked Group 2) 5 mg, Oral, EVERY 4 HOURS PRN, Pain Severe (7-10), Starting on 06/06/21 at 1220 0616 (Given - Provider: Jessica Matthews, VERENA) 0606 (Given - Provider: Rosie Briceño RN) 0145 (Given - Provider: Farideh Glass, VERENA)0625 (See Alternative - Provider: Farideh Glass, VERENA)1524 (Given - Provider: Justus Siddiqui, RN) phenol 1.4 % mouth spray 1 spray 1 spray, Mouth/Throat, EVERY 2 HOURS PRN, Sore Throat, Starting on Tue06/15/21 at 0139 3622 (Given - Provider: Rosie Briceño RN) polyethylene glycol (GLYCOLAX) packet 17 g 17 g, Oral, DAILY PRN, Constipation, Starting on 06/06/21 at 0010, First line therapy for constipation sodium chloride flush 0.9 % injection 5-40 mL 5-40 mL, IntraVENous, PRN, Line Care, After every IV line use, Starting on 06/06/21 at 0010, For Line Patency: Peripheral IV = 5 mL; Midline or Central Line = 10 mL/lumen. If following IV push medication, administer flush at same rate as the IV push. Flush volume is determined by type of infusion therapy being given. For non-viscous solutions use: Peripheral IV = 5 mL Midline or Central Line = 10 mL/lumen For viscous solutions (i.e. blood components, parenteral nutrition, contrast media, or after obtaining blood sample) use: Peripheral IV = 10 mL Midline or Central Line = 20 mL/lumen Linked Groups Order Group 1: ondansetron (ZOFRAN-ODT) disintegrating tablet 4 mgJump to med 4 mg, Oral, EVERY 8 HOURS PRN, Nausea, Vomiting, Starting on 06/06/21 at 0010 Or ondansetron (ZOFRAN) injection 4 mgJump to med 4 mg, IntraVENous, EVERY 6 HOURS PRN, Nausea, Vomiting, Starting on 06/06/21 at 0010
Administer if oral route cannot be used.
Group 2: oxyCODONE (ROXICODONE) immediate release tablet 2.5 mgJump to med 2.5 mg, Oral, EVERY 4 HOURS PRN, Pain Moderate (4-6), Starting on 06/06/21 at 1220 Or oxyCODONE (ROXICODONE) immediate release tablet 5 mgJump to med 5 mg, Oral, EVERY 4 HOURS PRN, Pain Severe (7-10), Starting on 06/06/21 at 1220 Scheduled Medication Order 06/30/2021 07/01/2021 07/02/2021 clopidogrel (PLAVIX) tablet 75 mg 75 mg, Oral, DAILY, First dose on 06/27/21 at 0900 0900 (Automatically Held - Provider: Jonelle Guzman MD) 0900 (Automatically Held) 0900 (Automatically Held) collagenase ointment Topical, DAILY, First dose on 06/29/21 at 1500, Apply to sacrum 0945 (Given - Provider: Kaylee Mercado, RN) 1228 (Given - Provider: Rodo Mauro, VERENA) 1600 (Due - Provider: Rodo Mauro, VERENA) enoxaparin (LOVENOX) injection 40 mg 40 mg, SubCUTAneous, DAILY, First dose on 06/27/21 at 0900 0900 (Automatically Held - Provider: Jonelle Guzman MD) 0900 (Automatically Held) 0900 (Automatically Held) levothyroxine (SYNTHROID) tablet 75 mcg 75 mcg, Oral, DAILY, First dose on 06/27/21 at 0700, Tube feeding (TF) interaction, obtain physician order to manage, recommend holding TF for 30 minutes before and after dose. 0549 (Given - Provider: Sloane Iyer RN) 0557 (Given - Provider: Sloane Iyer RN) 0503 (Given - Provider: Williams Del Toro, RN) lisinopril (PRINIVIL;ZESTRIL) tablet 20 mg 20 mg, Oral, DAILY, First dose on 06/27/21 at 0900 0840 (Given - Provider: Kaylee Mercado RN) 0739 (Given - Provider: Rodo Mauro, VERENA) 0924 (Given - Provider: Rodo Mauro, VERENA) metoprolol succinate (TOPROL XL) extended release tablet 50 mg 50 mg, Oral, NIGHTLY, First dose (after last modification) on 06/27/21 at 0000, Do not crush or chew. 2040 (Given - Provider: Sloane Iyer RN) 1950 (Given - Provider: Williams Del Toro, RN) 2099 (Due) montelukast (SINGULAIR) tablet 10 mg 10 mg, Oral, NIGHTLY, First dose on Tue06/26/21 at 2300 2040 (Given - Provider: Sloane Iyer RN) 1950 (Given - Provider: Wililams Del Toro, RN) 2099 (Due) propofol injection 50 mg 50 mg, IntraVENous, ONCE, On Tue06/26/21 at 0815, For 1 dose, If Titrate Infusion? is No: Disregard instructions below. If Titrate infusion? is Yes: Titrate in increments of 5 mcg/kg/min no more frequently than every 5 minutes to goal of therapy. If after titration rate change patient exhibits adverse hemodynamic response, next titration rate change may be adjusted by one-half of the previous rate change. If patient fails sedation interruption, resume propofol infusion at 50% of previous rate. Do not administer through the same I.V. catheter with blood or plasma. Tubing and any unused portions of propofol vials should be discarded after 12 hours. sodium chloride flush 0.9 % injection 5-40 mL 5-40 mL, IntraVENous, EVERY 12 HOURS SCHEDULED (2 times per day), First dose on Tue06/26/21 at 2100, For Line Patency: Peripheral IV = 5 mL; Midline or Central Line = 10 mL/lumen. If following IV push medication, administer flush at same rate as the IV push. Flush volume is determined by type of infusion therapy being given. For non-viscous solutions use: Peripheral IV = 5 mL Midline or Central Line = 10 mL/lumen For viscous solutions (i.e. blood components, parenteral nutrition, contrast media, or after obtaining blood sample) use: Peripheral IV = 10 mL Midline or Central Line = 20 mL/lumen 1025 (Given - Provider: Kaylee Mercado RN)2047 (Given - Provider: Sloane Iyer RN) 0742 (Given - Provider: Rodo Mauro, VERENA)1952 (Given - Provider: Williams Del Toro, VERENA) 0924 (Given - Provider: Rodo Mauro, VERENA)2100 (Due) trospium (SANCTURA) tablet 20 mg 20 mg, Oral, 2 TIMES DAILY BEFORE MEALS, First dose (after last modification) on Tue06/27/21 at 1600, Administer with water on an empty stomach at least 1 hour prior to meals. 0549 (Given - Provider: Sloane Iyer RN)1705 (Given - Provider: Kaylee Mercado RN) 0558 (Given - Provider: Sloane Iyer, VERENA)1557 (Given - Provider: Rodo Mauro, VERENA) 0504 (Given - Provider: Williams Del Toro RN)1600 (Due) PRN Medication Order 06/30/2021 07/01/2021 07/02/2021 0.9 % sodium chloride infusion 25 mL, IntraVENous, at 100 mL/hr, PRN, If patient receiving piggyback infusions without ordered maintenance IV fluids or with frequent/long duration piggyback infusions, Starting on Tue06/26/21 at 1438, Administer at the same rate as the piggyback being infused. acetaminophen (TYLENOL) tablet 1,000 mg 1,000 mg, Oral, EVERY 6 HOURS PRN, Pain Mild (1-3), Pain Moderate (4-6), Starting on Tue06/26/21 at 2243, If acetaminophen and ibuprofen are both ordered PRN for mild or moderate pain, may administer together. acetaminophen (TYLENOL) tablet 650 mg 650 mg, Oral, EVERY 4 HOURS PRN, Other, Pain (1-10), Starting on Tue06/26/21 at 1438, Give in addition to any other pain medication ordered at same time for any pain indication. LORazepam (ATIVAN) tablet 0.5 mg 0.5 mg, Oral, EVERY 8 HOURS PRN, Anxiety, Starting on Tue06/26/21 at 2242 0004 (Given - Provider: Sloane Iyer RN) 0005 (Given - Provider: Sloane Iyer RN)1951 (Given - Provider: Williams Del Toro RN) ondansetron (ZOFRAN) injection 4 mg(Linked Group 1) 4 mg, IntraVENous, EVERY 6 HOURS PRN, Nausea, Vomiting, Starting on Tue06/26/21 at 1438, Administer if oral route cannot be used. ondansetron (ZOFRAN-ODT) disintegrating tablet 4 mg(Linked Group 1) 4 mg, Oral, EVERY 8 HOURS PRN, Nausea, Vomiting, Starting on Tue06/26/21 at 1438 oxyCODONE (ROXICODONE) immediate release tablet 10 mg(Linked Group 2) 10 mg, Oral, EVERY 4 HOURS PRN, Pain Severe (7-10), Starting on Tue06/26/21 at 2321 0842 (Given - Provider: Kaylee Mercado, VERENA)1356 (Given - Provider: Malena Valdes RN) 0739 (Given - Provider: Rodo Mauro RN)1557 (Given - Provider: Rodo Mauro RN) 0457 (Given - Provider: Williams Del Toro RN)0924 (Given - Provider: Rodo Mauro, VERENA) oxyCODONE (ROXICODONE) immediate release tablet 5 mg(Linked Group 2) 5 mg, Oral, EVERY 4 HOURS PRN, Pain Moderate (4-6), Starting on Tue06/26/21 at 2321 0842 (See Alternative - Provider: Kaylee Mercado, RN)1356 (See Alternative - Provider: Malena Vadles, VERENA) 0739 (See Alternative - Provider: Rodo Mauro, RN)1557 (See Alternative - Provider: Rodo Mauro, RN) 0457 (See Alternative - Provider: Williams Del Toro RN)0924 (See Alternative - Provider: Rodo Mauro, RN) polyethylene glycol (GLYCOLAX) packet 17 g 17 g, Oral, DAILY PRN, Constipation, Starting on Tue06/26/21 at 1438, First line therapy for constipation sodium chloride flush 0.9 % injection 5-40 mL 5-40 mL, IntraVENous, PRN, Line Care, After every IV line use, Starting on Tue06/26/21 at 1438, For Line Patency: Peripheral IV = 5 mL; Midline or Central Line = 10 mL/lumen. If following IV push medication, administer flush at same rate as the IV push. Flush volume is determined by type of infusion therapy being given. For non-viscous solutions use: Peripheral IV = 5 mL Midline or Central Line = 10 mL/lumen For viscous solutions (i.e. blood components, parenteral nutrition, contrast media, or after obtaining blood sample) use: Peripheral IV = 10 mL Midline or Central Line = 20 mL/lumen traMADol (ULTRAM) tablet 50 mg 50 mg, Oral, EVERY 6 HOURS PRN, Pain Moderate (4-6), Starting on Tue06/26/21 at 1438 0004 (Given - Provider: Sloane Iyer RN) 0005 (Given - Provider: Sloane Iyer RN) Linked Groups Order Group 1: ondansetron (ZOFRAN-ODT) disintegrating tablet 4 mgJump to med 4 mg, Oral, EVERY 8 HOURS PRN, Nausea, Vomiting, Starting on Tue06/26/21 at 1438 Or ondansetron (ZOFRAN) injection 4 mgJump to med 4 mg, IntraVENous, EVERY 6 HOURS PRN, Nausea, Vomiting, Starting on Tue06/26/21 at 1438
Administer if oral route cannot be used.
Group 2: oxyCODONE (ROXICODONE) immediate release tablet 5 mgJump to med 5 mg, Oral, EVERY 4 HOURS PRN, Pain Moderate (4-6), Starting on Tue06/26/21 at 2321 Or oxyCODONE (ROXICODONE) immediate release tablet 10 mgJump to med 10 mg, Oral, EVERY 4 HOURS PRN, Pain Severe (7-10), Starting on Tue06/26/21 at 2321 Care Teams (unrecognized sec tion and content) Team Status: Active Member Role Status Dates Dr. Jamie Boateng MD Primary Care Provider Active Team Status: Inactive Member Role Status Dates Dr. 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 Jamie Boateng MD Primary Care Provider Active Dr. Malini Bruce DO Emergency Provider Active Dr. Felsiha Goodman MD Admit Provider, Atte nding Provider, Other Provider Active Team Status: Active Member Role Status Dates Dr. Jamie Boateng MD Primary Care Provider Active Dr. Malini Bruce DO Emergency Provider Active Dr. Felisha Goodman MD Admit Provider, Other Provider Act escobar Dr. Harley Perez DO Attending Provider, Other Pro vider Active Team Status: Inactive Member Role Status Dates Dr. Jamie Boateng MD Primary Care Provider Active Dr. Malini Bruce DO Emergency Provider Active Dr. Felisha Goodman MD Admit Provider, Other Provider Act escobar Dr. Harley Perez , DO Attending Provider Active Source Comments (unrecognize d section and content) In the event this informatio n is protected by the Federal Confidentiality of Alcohol and Drug Abuse Patient Records regulations: The Federal rules restrict any use of the information to criminally investigate or prosecute any alcohol or drug abuse patient.[facility] Reason for Visit (unrecogniz ed section and content) Reason Comments Hip Pain sent from [facility] or hip fracture/dislocation, ortho consult INFORMATION SOURCE (unrecogn ized section and content) DATE CREATED AUTHOR 07/16/2021 [facility] DATE CREATED AUTHOR AUTHOR'S ORGANIZ ATION 07/21/2021 [facility] [place] DATE CREATED AUTHOR AUTHOR'S ORGANIZ ATION 08/15/2023 [facility] ([place]) DATE CREATED AUTHOR AUTHOR'S ORGANIZ ATION 12/16/2023 [facility] DATE CREATED AUTHOR AUTHOR'S ORGANIZ ATION 12/14/2024 [facility] Goals (unrecognized section and content) Goals may be documented in a n alternate section Care Team (unrecognized sect ion and content) Care Team Personnel Name: JAMIE BOATENG MD Position: P4 Physician - Primary Care Med Service: Active Provider Member Role: Primary Care Physician Address: Address: [address] [place] [id number]- [place] FOR RECORDS PERTAINING TO PATIENTS WHO ARE OR HAVE BEEN ENROLLED IN A CHEMICAL DEPENDENCY/SUBSTANCEABUSE PROGRAM, SOME INFORMATION MAY BE OMITTED. This clinical summary was aggregated from multiple sources. Caution should be exercised in using it in the provision of clinical care. This summary normalizes information from multiple sources, and as a consequence, information in this document may materially change the coding, format and clinical context of patient data. In addition, data may be omitted in some cases. CLINICAL DECISIONS SHOULD BE BASED ON THE PRIMARY CLINICAL RECORDS. [facility]. provides no warranty or guarantee of the accuracy or completeness of information in this document.
[2025-02-12] MEDS: 0.9% Normal Saline (1000mL) 1,000 ML 50 ML IV (17:31)
[2025-02-12] MEDS: MELATONIN 10 MG TABLET PO (21:47)
[2025-02-12] MEDS: Metoprolol(XL)Succ 50 MG Tablet PO (21:48)
[2025-02-12] MEDS: 0.9% Saline Lock 10 ML Syringe IV (21:53)
[2025-02-13] VITALS (11 sets, daily range): BP systolic 132–163; BP diastolic 80–97; PULSE 55–84; RESP 16–22; TEMP 36.4–37; O2SAT 98–100; BMI 16.1
[2025-02-13 05:59] LABS: Hematocrit 39.1 % (37-47); Hemoglobin 12.5 g/dL (12.0-15.0); Immature Granulocytes Count 0.030 X10^3/uL (0.0-0.0); Mean Corp Hgb Conc 32.0 g/dL (32-36); Mean Corpuscular Volume 94.0 fL (81-99); Mean Platelet Vol. 10.1 fl (6.2-12.0); NRBC Flagged by Analyzer 0 % (0-5); Platelet Count 284 K/mm3 (150-450); RBC Distribution Width CV 13.9 % (11.6-14.6); RBC Distribution Width SD 47.8 fl (35.1-43.9); Red Blood Count 4.16 M/mm3 (4.2-5.4); White Blood Count 6.9 K/mm3 (4.4-11.0)
[2025-02-13 06:34] LABS: Anion Gap 10 (5-15); BUN 24 mg/dL (4-19); BUN/Creat Ratio 26.3 RATIO (10-20); Calcium,Total 9.1 mg/dL (7.6-11.0); Carbon Dioxide 26.9 mmol/L (21.0-32.0); Chloride 100 mmol/L (98-108); Estimated Creatinine Clearance 31.85 ml/min (50-250); Glucose 115 mg/dL (70-99); Potassium 4.5 mmol/L (3.3-5.1)
--- NOTE | 2025-02-13 11:27 | CASEMGMT ---
Addendum entered by Malgorzata Salinas 02/13/25 14:23: She reported she has a good appetite. Addendum entered by Malgorzata Salinas 02/13/25 14:21: SW asked the patient is she was interested in attending therapy and the patient reported she is not. She reported she can talk to her children about her feelings. Original Note: Social Work Primary Care Doctor:Dr. Boateng Speciality doctors: none Insurance: [facility] Pharmacy: Patient utilizes [facility] in [place]. Advanced directives: Patient reported she has a POA and LW at her home. LNOK: Patient has 3 sons and 1 daughter. Daughter- Any, helps the patient with her medical appts. son Kevni- patient lives with. Son Kevin and son Everardo. All her children live in [place]. Marital/Social History: Patient is a . Her in 2017. Patient is still grieving his . Living Situation: Patient lives with her son and his girlfriend. Her son does the cooking for the patient. Patient reported having plenty of food in the home. ADL's/Prior level of functioning: Patient reported difficulty waling and uses 2 canes one for leg at home. Patient reported difficulty walking to the bathroom and uses a BSC which she does not like. Transportation: His children help with transportation. DME: 2 canes and BSC snf/home health history: [facility], no SNF history Mental Health: Patient reported she has depression and takes lorazepam for it. She reported her the medication helps her sleep. Substance abuse history: none Assessment: Patient lives at home with her son and his girlfriend. Patient is still grieving the loss her and her dog. Patient reported she enjoys talking to her children, playing scrabble with her son Kevin and watching TV. She scored a 0/6 on a PHQ2. PLAN: To be determined. Social Work to continue to follow. JAREN Ambriz
--- NOTE | 2025-02-13 11:29 | PN.HOSP_ITS ---
Reason for Visit Chief Complaint: Shortness of breath, failure to thrive Subjective Subjective Saw patient at bedside this morning. Patient was fatigued appearing but otherwise sitting back fairly comfortably in bed, answering questions appropriately, in no acute distress. Noted that her breathing feels better today compared to yesterday. She denies any chest pain currently. She does still feel weaker than her baseline. No other new concerns morning. Objective Data Objective Data Vital Signs: Vital Signs Temp Pulse Resp BP Pulse Ox O2 Del Method O2 Flow Rate 97.5 F L 73 17 149/97 H 100 Nasal Cannula 2 02/13/25 09:05 02/13/25 09:05 02/13/25 09:05 02/13/25 09:05 02/13/25 09:05 02/13/25 09:24 02/13/25 09:24 Oxygen Flow Rate (L/min) 2 Oxygen Delivery Method Nasal Cannula Weight: 42.6 kg Body Mass Index (BMI) 16.1 Intake & Output: Intake and Output for Last 24 Hours 02/11/25 02/12/25 02/13/25 23:59 23:59 23:59 Intake Total 240 / 240 592.5 / 592.5 Output Total 250 / 250 Balance 240 / 240 342.5 / 342.5 Medical Nutrition Assessment Dietitian: Malnutrition Criteria Met Start: 02/13/25 11:27 Freq: Status: Active Protocol: Document 02/13/25 11:27 SB (Rec: 02/13/25 11:27 SB [id number]) Nutrition Malnutrition Evidence of Yes Malnutrition Exists Malnutrition (severe Chronic ): Evidenced By Physical Changes (Severe) Clinical Problem Chronic Disease or Condition Related Malnutrition Etiology severe malnutrition related to increase energy expenditure due to COPD Signs/Symptoms as evidenced by severe muscle/fat depletion on clavicle , arms, and orbitals. BMI 16.1kg/m2 Status Active Problem Recommendation Dietitian Adjust to liberal regular diet due to signs and Recommendations/ symptoms of malnutrition. Changes Will order 120mL EPHP 4x daily with medpass. Will monitor weight trends. Lab / Micro Data 02/13/25 05:16 02/13/25 05:16 Labs: Laboratory Results - last 24 hr 02/12/25 13:49: WBC 6.9, RBC 4.69, Hgb 13.9, Hct 43.8, MCV 93.4, MCH 29.6, MCHC 31.7 L, RDW Std Deviation 48.6 H, RDW Coeff of María 14.1, Plt Count 278, MPV 9.8, Immature Gran % (Auto) 0.400, Neut % (Auto) 72.1 H, Lymph % (Auto) 18.9 L, [place] % (Auto) 6.5, Eos % (Auto) 0.9, Baso % (Auto) 1.2 H, Absolute Neuts (auto) 5.0, Absolute Lymphs (auto) 1.31, Nucleated RBC % 0, Sodium 139, Potassium 5.2 H, Chloride 101, Carbon Dioxide 31.3, Anion Gap 7, BUN 19, Creatinine 0.95, Estim Creat Clear Calc 27.27 L, Est GFR (MDRD) Non-Af 59 L, BUN/Creatinine Ratio 19.5, Glucose 93, Calcium 9.9, NT pro BNP II 3460 H 02/12/25 14:08: Urine Color Yellow, Urine Clarity Sl. Cloudy, Urine pH 7.0, Ur Specific Wagoner 1.010, Urine Protein 100 H, Urine Glucose (UA) Normal, Urine Ketones Negative, Urine Occult Blood 25 H, Urine Nitrite Negative, Urine Bilirubin Negative, Urine Urobilinogen Normal, Ur Leukocyte Esterase 25 H, Urine RBC 0 SEEN, Urine WBC 0-5 SEEN, Ur Squamous Epith Cells 0-5 SEEN, Urine Bacteria 0 SEEN, Urine Mucus 0 SEEN 02/13/25 05:16: WBC 6.9, RBC 4.16 L, Hgb 12.5, Hct 39.1, MCV 94.0, MCH 30.0, MCHC 32.0, RDW Std Deviation 47.8 H, RDW Coeff of María 13.9, Plt Count 284, MPV 10.1, Immature Gran % (Auto) 0.400, Neut % (Auto) 74.7 H, Lymph % (Auto) 17.6 L, [place] % (Auto) 7.0, Eos % (Auto) 0.0, Baso % (Auto) 0.3, Absolute Neuts (auto) 5.2, Absolute Lymphs (auto) 1.21, Nucleated RBC % 0, Sodium 137, Potassium 4.5, Chloride 100, Carbon Dioxide 26.9, Anion Gap 10, BUN 24 H, Creatinine 0.90, E stim Creat Clear Calc 31.85 L, Est GFR (MDRD) Non-Af 64, BUN/Creatinine Ratio 26.3 H, Glucose 115 H, Calcium 9.1, TSH 0.880 Radiography Diagnostic Testing: Radiology Impression Chest X-Ray 02/12/25 12:44 IMPRESSION: Bilateral breast prostheses are in place, with extensive areas peripheral calcification noted. These areas of calcification limited evaluation of some portions of both lungs. Generalized osteopenia is seen. The cardiomediastinal silhouette is remarkable for a calcified aorta. No evidence of cardiomegaly. Lungs are hyperinflated, but no evidence of pulmonary edema or focal infiltrate is seen. No pleural effusion or pneumothorax is evident. No evidence of acute cardiopulmonary disease. Reading Location: [address] Physical Exam Const alert, oriented x3 and no apparent distress Constitutional Narrative: Elderly female, thin and chronically ill-appearing, mildly fatigued appearing, otherwise sitting back comfortably in bed, answering questions appropriately, in no acute distress. General Appearance: cooperative and comfortable HEENT normocephalic, head/scalp atraumatic, hearing grossly normal bilaterally, nasal mucous membranes and turbinates normal and moist oral mucous membranes Eyes PERRL, EOMs intact bilaterally and conjunctivae normal Neck full ROM Chest inspection of chest normal Resp normal respiratory effort and no use of accessory muscles Resp Narrative: Breathing comfortably on 2 L nasal cannula at rest with good oxygen saturations. Mildly diminished breath sounds in bilateral lung bases but otherwise good air movement throughout with no wheezing noted. Cardio regular rate, regular rhythm, no murmurs and peripheral pulses 2+ throughout GI normal to inspection, nondistended, normoactive bowel sounds, soft to palpation, non-tender and non-distended Back/Spine normal ROM Extremity normal to inspection, full ROM and no pedal edema Skin no rashes or lesions noted Psych mental status grossly normal Mood & Affect: anxious Assessment & Plan Assessment/Plan (1) Hypoxia: PLAN: Plan Patient is an 84-year-old female who presented to [facility] ED on 02/12/2025 with shortness of breath and weakness. 1. Acute hypoxia on exertion in setting of COPD with chronic nocturnal hypoxia ? On home 2 L nasal cannula at night. Requiring 3 L nasal cannula on exertion on admit to maintain appropriate oxygen saturations. Chest x-ray showed hyperinflated lungs but no evidence of pulmonary edema or focal infiltrate noted; extensive areas of peripheral calcifications were also noted. BNP elevated at 3460 on admit patient with hypertensive urgency as below that may have been acutely contributing to this. However, she otherwise appeared dry on exam so no IV Lasix was given. Suspect patient may be close to her baseline at this time. Has known history of COPD and previously followed with pulmonology but has not seen them in some time and does not have any inhalers at home. Suspect she may have some degree of worsened pulmonary hypertension contributing to her increased oxygen requirement. No wheezing on exam on admit so low concern for COPD exacerbation. No WBC count or fevers noted, no concern for pneumonia. Will continue home Singulair and albuterol as needed. Will have patient complete O2 ambulatory testing tomorrow in preparation for discharge home. 2. Mild acute on chronic debility ? PT/OT/case management following. Patient lives at home with family and uses a walker at baseline. Reports feeling a bit weaker than her normal recently. Therapy scores fairly good on 02/13; will be okay for discharge home with either home health care or outpatient physical therapy. 3. Hypertensive urgency, improved; history of CVA, hypertension, hyperlipidemia ? Hypertensive to the low 200s systolic on admit and presented with shortness of breath and hypoxia on exertion as above. Improved with a dose of IV hydralazine and resumption of home lisinopril and Toprol. BP stable in the 140s to 150s systolic. Given her significant Ativan dosage as below, suspect there could be some degree of Ativan withdrawal contributing to her hypertension on admit so we will hold off on increasing her home BP medications. Continue to monitor. 4. Generalized anxiety disorder ? On home Ativan 2 mg 3 times daily as needed. OARRS reviewed and patient has been filling this regularly. In fact, she has been getting 120 pills of Ativan 2 mg every month and appears to be refilling it right about every 30 days, so suspect patient is taking this 4 times daily. This is prescribed by her PCP. Given her underweight BMI and age, this is a significantly higher amount of Ativan did not feel the patient should be prescribed at baseline. However, reducing her home dosage would likely lead to withdrawal symptoms so we will continue Ativan 2 mg every 6 hours as needed while inpatient. Recommend close outpatient follow-up with PCP on discharge. 5. Severe protein calorie malnutrition ? Nutrition following. Met criteria for severe malnutrition related to increased energy expenditure due to COPD as evidenced by severe muscle/fat depletion of clavicle, arms and orbitals and BMI of 16.1. Per nutrition, okay for regular diet and supplemental protein ordered with meals. 6. Overactive bladder ? Continue home oxybutynin. 7. Hypothyroidism ? TSH normal on admit. Continue home Synthroid. 8. Chronic pain syndrome ? OARRS reviewed. Continue home hydrocodone?acetaminophen every 6 hours as needed. DVT prophylaxis: Lovenox CODE STATUS: DNR-CCA, DNI Expected disposition: Likely home with home health care, 1 to 2 days Total clinical time spent by myself addressing the patient's medical issues, reviewing all the data, and collaborating with patient's care team: 42 minutes. Charges/Coding Visit Charges Inpatient E&M: 98492 Subs Hosp L2
[2025-02-13] MEDS: Ensure Plus High Protein 120 ML LIQUID PO (14:16)
--- NOTE | 2025-02-13 14:59 | CHAPLAIN ---
Type of Pastoral Visit _x__ Initial Visit ___ Follow-up Visit ___ On-call Visit ___ General Patient Visit ___ Spiritual Assessment ___ Family Conference ___ Bereavement ___ Rapid Response ___ Code Blue ___ Other (describe below) Pastoral Care Referral From _x__ Patient ___ Family ___ Nurse ___ Physician ___ Loft Worker ___ Payment Manager ___ Other (describe below) Sacrament/Intervention _x__ Active listening ___ Anointing ___ Confucianist ___ Bereavement ___ Communion ___ [place] exploration ___ _x__ Life review _x__ Prayer ___ Reconciliation ___ Sacrament of Sick _x__ Supportive presence ___ Wedding ___ Other (describe below) Pastoral Comments patient asked about getting help with the TV to get to the channel she wanted and to remove items on her meal tray; pt is given opportunity to explore her feelings and how she is coping; pt is focused on having her house paid for before she dies; pt is tearful about this and is concerned that my son is mad at me; pt may not be thinking clearly but does welcome prayers and someone to talk with
[2025-02-13] MEDS: Metoprolol(XL)Succ 50 MG Tablet PO (20:32)
[2025-02-13] MEDS: MELATONIN 10 MG TABLET PO (22:41)
[2025-02-14] VITALS (9 sets, daily range): BP systolic 113–148; BP diastolic 59–76; PULSE 61–80; RESP 16–20; TEMP 36.4–36.6; O2SAT 88–99; BMI 15.4
--- NOTE | 2025-02-14 09:34 | CASEMGMT ---
Social Work SW spoke with the patient and completed a PHQ9. Patient scored a 0. Patient reported not having any thoughts of hurting herself. Patient reported she wants to live so she can pay her house off and give it to her son. Patient reported when she discharges her daughter will pick her up. Patient reported she needs to get home or she is going to be in trouble. She reported she was sick with covid 19 for a month. She reported he son worries she will get sick again. JAREN Ambriz
--- NOTE | 2025-02-14 09:38 | CASEMGMT ---
Social Work MARIA INES spoke with the daughter Any. The daughter reported she thinks her mom has a descent appetite but she does not get 3 balanced meals a day. Any reported the son does the cooking. She reported her mother does need a rolling walker. She reported she will hop pick[place] her mother at [place]. She reported the care her mother receives from the son is questionable. She reported her mother does not get a bath or shower a lot. She reported her mother needs a lot of help. She reported she does not think the son understands the patient needs. She reported the house is not in good shape or clean. She reported the furnace does not work and they heat the house by wood. She reported her mother has a heater in her room. She reported her mother had an opportunity to live with her brother and she wanted to go back home. She reported her mother wants to live in her home. She reported her mother is in her right mind. She reported her mother pays her own bills. She reported her mother has anxiety. She reported her brother is impatient with her mother at times and then other times he is nice to her. MARIA INES spoke with the daughter about HH or hospice. The daughter is in agreement with either. Any asked the SW to speak with the patient about it. JAREN Ambriz
--- NOTE | 2025-02-14 10:12 | CASEMGMT ---
Social Work SW spoke with the patient about DC to a SNF. Patient does not want to DC to a SNF. SW spoke with her about HH or hospice. Patient reported she does not want HH or hospice because the house is embarrassing due to not being clean. JAREN Ambriz
--- NOTE | 2025-02-14 10:56 | PCM.DC ---
Discharge Instructions DC O2, CPAP, BIPAP needs Home O2 Discharge instructions: Yes Type of respiratory needs?: Oxygen Oxygen frequency: At rest, With Ambulation Oxygen liters per minute during Ambulation: 3 and With Sleeping Oxygen liters per minute when sleepin Dressing / Incision Discharge Activity: No Restrictions Follow Up Care Test Results: Test results from this visit will be discussed in further detail at your follow-up appointment, if applicable. Discharge Plan Admission Admit Date/Time: 02/12/25 15:48 Primary Reason for Your Visit: Shortness of breath Attending Provider: Moreno Aguayo Primary Care Provider: Duncan Boateng Consulting Providers: Nadira Lorenz Instructions Additional Instructions / Restrictions: Please use the budesonide?formoterol inhaler twice daily and the albuterol inhaler up to every 6 hours as needed for her COPD. Continue your other home medications as normal. As discussed, I would recommend following up with your PCP to discuss down titration of your Ativan as you are on high dosing. Follow-up with your PCP in the next few weeks. Discharge Orders/Prescriptions Prescriptions: New albuterol sulfate [Ventolin HFA] 90 mcg/actuation HFA aerosol inhaler 1 inh inhalation Q6H PRN (Reason: shortness of breath or wheezing) Qty: 8.5 0RF budesonide-formoterol 80-4.5 mcg/actuation HFA aerosol inhaler 1 inh inhalation BID 30 Days Qty: 10.2 2RF Continued levothyroxine 75 mcg Tablet 75 mcg PO DAILY metoprolol succinate 50 mg Tablet Extended Release 24 Hr 50 mg PO QPM lisinopril 20 mg Tablet 20 mg PO DAILY montelukast [Singulair] 10 mg Tablet 10 mg PO QHS clopidogrel 75 mg Tablet 75 mg PO DAILY hydrocodone-acetaminophen 5-325 mg tablet 1 tab PO Q6H PRN (Reason: Pain) lorazepam 2 mg tablet 2 mg PO TID PRN (Reason: ANXIETY) oxybutynin chloride 5 mg tablet extended release 24hr 5 mg PO DAILY Discontinued amoxicillin-pot clavulanate 875-125 mg Tablet 875 mg PO BID Qty: 10 0RF Rx Instructions: start 06/14/22, take with food amoxicillin-pot clavulanate 875-125 mg tablet 1 tab PO BID 7 Days Qty: 14 0RF Referrals / Follow Up: Duncan Boateng MD [Primary Care Provider, Family Practice] Disposition Disposition (needs filled in before D/C Order can be placed): Home, Self Care
--- NOTE | 2025-02-14 10:57 | PCM.DC.SUM ---
Providers Date of Admission: 02/12/25 Date of Discharge: 02/14/25 Primary Care Physician: Dr. Duncan Boateng MD Reason For Visit: DYPOXIA, DYSPNEA, FAILURE TO THRIVE Diagnosis Discharge Diagnosis (1) Hypoxia: Status: Acute Code(s): R09.02 - Hypoxemia Medications at Discharge Home Medications levothyroxine 75 mcg tablet 75 mcg PO DAILY THYROID 06/05/21 lisinopril 20 mg tablet 20 mg PO DAILY BLOOD PRESSURE 06/05/21 metoprolol succinate 50 mg tablet,extended release 24 hr 50 mg PO QPM BLOOD PRESSURE 06/05/21 montelukast 10 mg tablet (Singulair) 10 mg PO QHS BREATHING 06/05/21 clopidogrel 75 mg tablet 75 mg PO DAILY BLOOD THINNER 09/07/21 hydrocodone-acetaminophen 5-325mg 5mg-325mg 1 tab PO Q6H PRN Pain 06/10/22 lorazepam 2 mg tablet 2 mg PO TID PRN ANXIETY 06/10/22 oxybutynin chloride 5 mg tablet,extended release 24 hr 5 mg PO DAILY OVERACTIVE BLADDER 06/10/22 budesonide 0.5 mg/2 mL suspension for nebulization 0.5 mg (2 mL) inhalation BID #60 mL 02/14/25 ipratropium 0.5 mg-albuterol 3 mg (2.5 mg base)/3 mL nebulization soln 3 ml inhalation Q6H PRN shortness of breath or wheezing #180 mL 02/14/25 Hospital Course Operations None Procedures EKG and - (Chest x-ray) Summary of Care Provided Minutes Spent on Discharge: 39 Hospital Course: Patient is an 84-year-old female who presented to [facility] ED on 02/12/2025 with shortness of breath and weakness. Hospital course as noted below. Patient discharged home in stable condition on 02/14. 1. Acute hypoxia in setting of COPD with chronic nocturnal hypoxia ? On home 2 L nasal cannula at night. Requiring 3 L nasal cannula on admit to maintain appropriate oxygen saturations. Chest x-ray showed hyperinflated lungs but no evidence of pulmonary edema or focal infiltrate noted; extensive areas of peripheral calcifications were also noted. BNP elevated at 3460 on admit patient with hypertensive urgency as below that may have been acutely contributing to this. However, she otherwise appeared dry on exam so no IV Lasix was given. Patient with no wheezing on exam, no leukocytosis or fevers noted so no concern for COPD exacerbation or pneumonia. Suspect patient is at her baseline at this time. Oxygen testing completed on day of discharge and patient required 2 L at rest and 3 L with exertion, prescription sent. Patient and patient's family note that she has significant difficulty with using inhalers and requested that patient be discharged with a nebulizer; prescription sent as well. Will discharge on Pulmicort twice daily and DuoNebs up to every 6 hours as needed. Recommend the patient reestablish with outpatient pulmonology on discharge. 2. Mild acute on chronic debility ? PT/OT/case management followed. Patient lives at home with family and uses a walker at baseline. Reports feeling a bit weaker than her normal recently. However, had good therapy scores during hospitalization and was stable for discharge home with no therapy needs on 02/14. 3. Hypertensive urgency, improved; history of CVA, hypertension, hyperlipidemia ? Hypertensive to the low 200s systolic on admit and presented with shortness of breath and hypoxia on exertion as above. Improved with a dose of IV hydralazine and resumption of home lisinopril and Toprol. BP stable in the 140s to 150s systolic. Given her significant Ativan dosage as below, suspect there could be some degree of Ativan withdrawal contributing to her hypertension on admit so held off on increasing home BP medications. Continue home lisinopril and Toprol on discharge. 4. Generalized anxiety disorder ? Patient is on home Ativan 2 mg 4 times daily as needed. [place]AR[place] reviewed and patient has been filling this at the 30-day dino regularly. Discussed with patient's son over the phone on day of discharge and he noted that patient has been on Ativan now for many years. He helps to manage her medications and notes that she will have very significant anxiety if she misses a dose of Ativan. She will typically do 1 dose in the morning, 1 in the afternoon and 2 in the evening. I presume the patient is having withdrawal symptoms from high Ativan dose at home if she goes without a dose and expressed this to the son. Patient could certainly benefit from benzodiazepine detox in the hospital but patient and son were not interested in that at this time. Recommend outpatient follow-up with PCP for further discussions regarding this. 5. Severe protein calorie malnutrition ? Nutrition followed. Met criteria for severe malnutrition related to increased energy expenditure due to COPD as evidenced by severe muscle/fat depletion of clavicle, arms and orbitals and BMI of 16.1. Per nutrition, okay for regular diet and supplemental protein ordered with meals. 6. Overactive bladder ? Continue home oxybutynin. 7. Hypothyroidism ? TSH normal on admit. Continue home Synthroid. 8. Chronic pain syndrome ? OARRS reviewed. Continue home hydrocodone?acetaminophen every 6 hours as needed. Total clinical time spent by myself addressing the patient's medical issues, reviewing all the data, and collaborating with patient's care team: 39 minutes. Physical Exam Const alert, oriented x3 and no apparent distress Constitutional Narrative: Elderly female, thin and chronically ill-appearing, mildly fatigued appearing but energy improved from admission, otherwise sitting back comfortably in bed, answering questions appropriately, in no acute distress. General Appearance: cooperative and comfortable HEENT normocephalic, head/scalp atraumatic, hearing grossly normal bilaterally, nasal mucous membranes and turbinates normal and moist oral mucous membranes Eyes PERRL, EOMs intact bilaterally and conjunctivae normal Neck full ROM Chest inspection of chest normal Resp normal respiratory effort and no use of accessory muscles Resp Narrative: Breathing comfortably on 2 L nasal cannula at rest with good oxygen saturations. Mildly diminished breath sounds in bilateral lung bases but otherwise good air movement throughout with no wheezing noted. Stable. Cardio regular rate, regular rhythm, no murmurs and peripheral pulses 2+ throughout GI normal to inspection, nondistended, normoactive bowel sounds, soft to palpation, non-tender and non-distended Back/Spine normal ROM Extremity normal to inspection, full ROM and no pedal edema Skin no rashes or lesions noted Psych mental status grossly normal Mood & Affect: anxious Medical Records Data Medical Nutrition Assessment Dietitian: Malnutrition Criteria Met Start: 02/13/25 11:27 Freq: Status: Active Protocol: Document 02/13/25 11:27 SB (Rec: 02/13/25 11:27 SB [id number]) Nutrition Malnutrition Evidence of Yes Malnutrition Exists Malnutrition (severe Chronic ): Evidenced By Physical Changes (Severe) Clinical Problem Chronic Disease or Condition Related Malnutrition Etiology severe malnutrition related to increase energy expenditure due to COPD Signs/Symptoms as evidenced by severe muscle/fat depletion on clavicle , arms, and orbitals. BMI 16.1kg/m2 Status Active Problem Recommendation Dietitian Adjust to liberal regular diet due to signs and Recommendations/ symptoms of malnutrition. Changes Will order 120mL EPHP 4x daily with medpass. Will monitor weight trends. Weight / BMI Weight Weight: 40.7 kg Body Mass Index (BMI) 15.4 ABG / Lab / Microbiology Data 02/13/25 05:16 02/13/25 05:16 Radiography Diagnostic Testing: Radiology Impression Echocardiogram 02/12/25 16:06 Interpretation Summary Normal LV size. The left ventricular ejection fraction is 65 %. There is moderate mitral annular calcification. Mild (1+) eccentric mitral valve insufficiency. The left atrium is mildly enlarged. Stage 1 diastolic dysfunction. Mild (1+) tricuspid valve insufficiency. Ordering Physician: Nadira Lorenz Referring Physician: Duncan Boateng Performed By: Lavonne Skinner RDCS, RVT D/C Instructions DC O2, CPAP, BIPAP Needs Home O2 Discharge instructions: Yes Type of respiratory needs?: Oxygen Oxygen frequency: At rest, With Ambulation Oxygen liters per minute during Ambulation: 3 and With Sleeping Oxygen liters per minute when sleepin DC home with Oxygen: Yes Home O2 MD Review: I have reviewed the oxygen testing, and the patient qualifies for home oxygen equipment and portability. The patient is mobile in the home and the community. Meaningful Use Info Meaningful Use Meaningful Use Diagnoses (Choose all that apply): None applicable Discharge Plan Admission Admit Date/Time: 02/12/25 15:48 Primary Reason for Your Visit: Shortness of breath Attending Provider: Moreno Aguayo Primary Care Provider: Duncan Boateng Consulting Providers: Nadira Lorenz Instructions Additional Instructions / Restrictions: Please use the budesonide nebulizer twice daily scheduled and the DuoNeb nebulizer up to every 6 hours as needed. Continue your other home medications as normal. As discussed, I would recommend following up with your PCP to discuss down titration of your Ativan as you are on high dosing. Follow-up with your PCP in the next few weeks. Discharge Orders/Prescriptions Prescriptions: New ipratropium-albuterol 0.5 mg-3 mg(2.5 mg base)/3 mL solution for nebulization 3 ml inhalation Q6H PRN (Reason: shortness of breath or wheezing) Qty: 180 0RF budesonide 0.5 mg/2 mL suspension for nebulization 0.5 mg inhalation BID Qty: 60 0RF Continued levothyroxine 75 mcg Tablet 75 mcg PO DAILY metoprolol succinate 50 mg Tablet Extended Release 24 Hr 50 mg PO QPM lisinopril 20 mg Tablet 20 mg PO DAILY montelukast [Singulair] 10 mg Tablet 10 mg PO QHS clopidogrel 75 mg Tablet 75 mg PO DAILY hydrocodone-acetaminophen 5-325 mg tablet 1 tab PO Q6H PRN (Reason: Pain) lorazepam 2 mg tablet 2 mg PO TID PRN (Reason: ANXIETY) oxybutynin chloride 5 mg tablet extended release 24hr 5 mg PO DAILY Discontinued amoxicillin-pot clavulanate 875-125 mg Tablet 875 mg PO BID Qty: 10 0RF Rx Instructions: start 06/14/22, take with food amoxicillin-pot clavulanate 875-125 mg tablet 1 tab PO BID 7 Days Qty: 14 0RF Referrals / Follow Up: Duncan Boateng MD [Primary Care Provider, Family Practice] - 02/20/25 1:00 pm Referral Note: APPOINTMENT WITH DR. COWART Disposition Disposition (needs filled in before D/C Order can be placed): Home, Self Care Charges/Coding Visit Charges Inpatient E&M: 13360 Disch Hosp >30min
[2025-02-14] MEDS: Ensure Plus High Protein 120 ML LIQUID PO (11:05)
--- NOTE | 2025-02-14 11:40 | PCM.HOSP.N ---
Hospitalist Note I have reviewed the oxygen testing, and this patient qualifies for the home equipment and portability. The patient is mobile in the home and the community.
--- NOTE | 2025-02-14 12:06 | CASEMGMT ---
VERENA FERREIRA note: Discharge order is in. Home O2 amb testing has been completed. Pt qualifies for O2 @ 2 L/M @ rest and 3 L/M w/exertion. Dr Aguayo made aware, script received, and sent to [facility] via [employer]. Dr Aguayo had also e-scribed inhalers to [facility]. RN JHON spoke w/daughter, Any. She states pt is not able to use inhalers, that she struggles w/knowing how to use them properly and she would like an nebulizer for pt. She states pt has never had a nebulizer before. Dr Aguayo made aware & order received for same. He states will order nebulizer solution. Pt's daughter also states would be interested in pt getting a POC instead of portable O2 tanks, but this would depend on the cost. Call placed to [facility] & spoke w/[facility]. Per [facility] POC will be covered @ 100 %. Any made aware and voices appreciation. Any would like to be present when nurse goes over discharge instructions w/pt and also with [facility] re: portable O2 tanks and nebulizer. She will be coming in to pick pt up @ 2 PM today. RN, Gilma, made aware of same. [facility] @ [facility] made aware as well and states they can deliver the POC and nebulizer shortly after 2 PM today. Any made voices frustration about being interested in [facility] for pt as well as hospice and is aware that pt is refusing same. She states she feels like her hands are tied stating she would like to get additional help in the home for pt but not only has pt not been agreeable, but she states her brother probably wouldn't let them in the house either. Daughter made aware, if pt or pt's son would change their minds in the future, to discuss possible options w/pt's PCP. She voices understanding. Any denies having further discharge needs or concerns. Lula PIERCE RN, CM
--- NOTE | 2025-02-14 12:58 | PHA.DC_ITS ---
Pharmacy [facility] has performed discharge medication counseling for this patient. The patient was counseled on the following discharge medications and changes in medications for homegoing review. - Budesonide suspension for nebulization, Ipratropium-albuterol suspension for nebulization. The Reason for Use, instructions for use, and potential side effects were reviewed for all new medications. The patient's questions regarding all of their medications were answered. - The patient is agreeable to the medication changes but does have concerns about the medication costs. The patient demonstrated some understanding but would benefit from further education and reinforcement. Medications at Discharge Home Medications levothyroxine 75 mcg tablet 75 mcg PO DAILY THYROID 06/05/21 lisinopril 20 mg tablet 20 mg PO DAILY BLOOD PRESSURE 06/05/21 metoprolol succinate 50 mg tablet,extended release 24 hr 50 mg PO QPM BLOOD PRESSURE 06/05/21 montelukast 10 mg tablet (Singulair) 10 mg PO QHS BREATHING 06/05/21 clopidogrel 75 mg tablet 75 mg PO DAILY BLOOD THINNER 09/07/21 hydrocodone-acetaminophen 5-325mg 5mg-325mg 1 tab PO Q6H PRN Pain 06/10/22 lorazepam 2 mg tablet 2 mg PO TID PRN ANXIETY 06/10/22 oxybutynin chloride 5 mg tablet,extended release 24 hr 5 mg PO DAILY OVERACTIVE BLADDER 06/10/22 budesonide 0.5 mg/2 mL suspension for nebulization 0.5 mg (2 mL) inhalation BID #60 mL 02/14/25 ipratropium 0.5 mg-albuterol 3 mg (2.5 mg base)/3 mL nebulization soln 3 ml inhalation Q6H PRN shortness of breath or wheezing #180 mL 02/14/25
--- NOTE | 2025-02-14 14:45 | CASEMGMT ---
Social Work SW called [facility] and left a message. JAREN Ambriz
[2025-02-14] MEDS: Albuterol 2.5 MG/3 ML VIAL.NEB. INHALATION (15:59)
--- NOTE | 2025-02-15 12:11 | CASEMGMT ---
Social Work SW called [facility] and left a message. JAREN Ambriz
--- NOTE | 2025-02-15 15:44 | CASEMGMT ---
Social Work SW spoke with Gudelia at [facility] and reported concerns. The concerns were the house being embarrassing due to it not being clean, the son being impatient with the patient and yelling at her, the patients weight, and the patient not getting a bath very often. JAREN Ambriz
== END 2025-02-14 17:27 | disposition home or self-care (01) | DRG 189 ==
LOC: ED 15:13 → PCU 16:48
PROVIDERS: Admitting Provider Internal Medicine; Emergency Provider Emergency Medicine; PCP Family Medicine; Visit Provider Hospitalist
DX: J96.11 Chronic respiratory failure with hypoxia (principal); E43 Unspecified severe protein-calorie malnutrition; I50.32 Chronic diastolic (congestive) heart failure; Z68.1 Body mass index [BMI] 19.9 or less, adult; I27.20 Pulmonary hypertension, unspecified; I16.0 Hypertensive urgency; Z66 Do not resuscitate; J44.9 Chronic obstructive pulmonary disease, unspecified; E03.9 Hypothyroidism, unspecified; F32.A Depression, unspecified; I34.0 Nonrheumatic mitral (valve) insufficiency; I11.0 Hypertensive heart disease with heart failure; E87.5 Hyperkalemia; E78.5 Hyperlipidemia, unspecified; F41.1 Generalized anxiety disorder; R62.7 Adult failure to thrive; N32.81 Overactive bladder; R53.81 Other malaise; G89.4 Chronic pain syndrome; Z86.73 Personal history of transient ischemic attack (TIA), and cerebral infarction without residual deficits; Z79.02 Long term (current) use of antithrombotics/antiplatelets; Z79.890 Hormone replacement therapy; Z79.899 Other long term (current) drug therapy; Z87.891 Personal history of nicotine dependence; Z91.199 Patient's noncompliance with other medical treatment and regimen due to unspecified reason
CPT/HCPCS: 36415; 71045; 80048; 81001; 83880; 84443; 85025; 93005; 93306; 94640; 94668; 97162; 97166; 99285; A4216